=== PATIENT | female | born 1960 | race Two or more races ===

== ENCOUNTER 2020-03-27 17:24 | Emergency (ER) | payer MEDICAID, SELFPAY ==
--- NOTE | 2020-03-27 | ECG_ITS ---
Test Reason : SOB Blood Pressure : / mmHG Vent. Rate : 075 BPM Atrial Rate : 075 BPM P-R Int : 146 ms QRS Dur : 096 ms QT Int : 396 ms P-R-T Axes : 059 042 044 degrees QTc Int : 442 ms Normal sinus rhythm Normal ECG When compared with ECG of 04-JUN-2019 10:55, No significant change was found Referred By: Alice Marroquin Electronically Signed By:REBECCA JOSEPH DO
--- NOTE | 2020-03-27 | XR_ITS ---
EXAMINATION: XR CHEST CLINICAL INFORMATION: Shortness of breath TECHNIQUE: Frontal view of the chest was obtained. FINDINGS: No significant abnormality is noted involving the heart, lungs, mediastinum, bony thorax or soft tissues. IMPRESSION: Unremarkable examination.
[2020-03-27 17:02] VITALS: BP 145/64; PULSE 78; TEMP 36.6; BMI 25.6
--- NOTE | 2020-03-27 17:05 | ED_ITS ---
HPI - SOB/Dyspnea General Chief Complaint: Asthma <Alice Marroquin NP - Last Filed: 03/27/20 20:08> Stated Complaint: sob <Alice Marroquin NP - Last Filed: 03/27/20 20:08> Time Seen by Provider: 03/27/20 17:35 <Alice Marroquin NP - Last Filed: 03/27/20 20:08> Related Data Allergies/Adverse Reactions: Allergies Allergy/AdvReac Type Severity Reaction Status Date / Time No Known Allergies Allergy Unverified 03/13/20 19:32 [No Known Allergies*] <ANGELINA Peters Last Filed: 03/27/20 20:08> Review of Systems Review of Systems: Patient presents with 4 days of shortness of breath, shortness of breath on exertion, fatigue, and headache. She was seen at [facility] 1 week ago for swelling on her brain . She does have some chest tightness and nonproductive cough consistent with her history of COPD. She denies palpitations, fevers, chills, nausea, vomiting, abdominal pain, abdominal distention, dysuria, hematuria, and edema. She does walk with a cane And denies history of trauma and falls. <ANGELINA Peters Last Filed: 03/27/20 20:08> Constitutional: Constitutional: Denies chills, Denies excessive sweating, Reports fatigue, Denies fever(s), Denies frequent falls, Reports headache(s), Denies weight gain and Denies weight loss <ANGELINA Peters Last Filed: 03/27/20 20:08> Eyes: Eyes: Reports no additional eye complaints, Denies blurry vision and Denies loss of vision <Alice Marroquin NP - Last Filed: 03/27/20 20:08> ENT: Reports Normal hearing present, Denies change in voice, Denies dysphagia, Reports dizziness, Reports headache(s), Denies hoarseness, Denies neck pain, Denies disequilibrium and Denies sore throat <Alice Marroquin NP - Last Filed: 03/27/20 20:08> Cardiovascular: Cardiovascular: Denies acrocyanosis, Reports chest pain, Repo rts chest pain at rest, Reports chest pain with activity, Denies Epigastric Pain, Denies diaphoresis, Denies syncope, Denies rapid heart rate, Denies edema, Denies irregular heart rhythm, Denies claudication, Denies palpitations, Reports dyspnea, Reports dyspnea on exertion and Reports orthopnea <Alice Marroquin NP - Last Filed: 03/27/20 20:08> Respiratory: Respiratory: Denies change in phlegm color, Denies chest congestion, Reports cough, Denies hemoptysis, Reports excessive phlegm production, Denies pain on inspiration, Denies pain with cough, Reports dyspnea, Reports dyspnea on exertion, Denies stridor and Denies wheezing <Alice Marroquin MANAGER INTEGRITY - Last Filed: 03/27/20 20:08> Gastrointestinal: Gastrointestinal: Denies melena, Denies hematochezia, Denies change in stool character, Denies coffee ground emesis, Denies constipation, Den ies dysphagia, Denies fecal incontinence, Denies diarrhea, Denies loose stools, Denies nausea, Denies vomiting and Denies hematemesis <Alice Marroquin MANAGER INTEGRITY - Last Filed: 03/27/20 20:08> Genitourinary: Genitourinary: Denies difficulty voiding, Denies dysuria, Denies urinary incontinence, Denies urinary hesitancy and Denies urinary urgency <Alice Marroquin MANAGER INTEGRITY - Last Filed: 03/27/20 20:08> Musculoskeletal: Musculoskeletal: Denies abnormal gait and Denies neck pain <Alice Marroquin MANAGER INTEGRITY - Last Filed: 03/27/20 20:08> Neurologic: Reports Normal hearing present, Denies Neuro-related abnormal movements, Denies Abnormal speech present, Denies abnormal gait, Denies behavioral changes, Denies burning sensations, Denies confusion, Reports dizziness, Denies syncope, Denies frequent falls, Reports headache(s), Denies focal weakness, Denies loss of vision and Denies disequilibrium <Alice Marroquin MANAGER INTEGRITY - Last Filed: 03/27/20 20:08> Psychiatric: Psychiatric: Denies behavioral changes and Denies confusion <Alice Marroquin MANAGER INTEGRITY - Last Filed: 03/27/20 20:08> Endocrine: Endocrine: Denies excessive sweating, Reports fatigue, Denies polyuria and Denies palpitations <Alice Marroquin NP - Last Filed: 03/27/20 20:08> Hematologic/Lymphatic: Hematologic/Lymphatic: Denies easy bruising <Alice Marroquin NP - Last Filed: 03/27/20 20:08> Allergic/Immunologic: Allergic/Immunologic: Denies wheezing <Alice Marroquin NP - Last Filed: 03/27/20 20:08> [facility] Past Medical History Source: old records reviewed <Alice Marroquin NP - Last Filed: 03/27/20 20:08> Medical History: Medical History Anxiety COPD (chronic obstructive pulmonary disease) Depression Dyspnea Hypertension <Alice Marroquin NP - Last Filed: 03/27/20 20:08> Social History Social History: Social History Advance Directives: No Advance Directives Information Provided: No <Alice Marroquin NP - Last Filed: 03/27/20 20:08> Physical Exam Vital Signs and I&O and Narrative: Vital Signs and I&O: Vital Signs Temp 98.2 F 03/27/20 18:14 Pulse 74 03/27/20 18:14 Resp 16 03/27/20 18:14 BP 116/64 03/27/20 18:14 Pulse Ox 100 03/27/20 18:14 Intake & Output 03/27/20 03/27/20 03/28/20 06:59 18:59 06:59 Weight 63.503 kg Body Mass Index 25.6 <Alice Marroquin NP - Last Filed: 03/27/20 20:08> Vital Signs and I&O: Vital Signs Temp 98.2 F 03/27/20 18:14 Pulse 74 03/27/20 18:14 Resp 16 03/27/20 18:14 BP 116/64 03/27/20 18:14 Pulse Ox 100 03/27/20 18:14 Intake & Output 03/27/20 03/27/20 03/28/20 06:59 18:59 06:59 Weight 63.503 kg Body Mass Index 25.6 <Magdy Granado MD - Last Filed: 03/27/20 20:41> Const: General: cooperative, no acute distress, alert, awake and in distress mild (respiratory); No confusion or diaphoretic <Alice Marroquin NP - Last Filed: 03/27/20 20:08> Orientation/consciousness: oriented to person, oriented to place, oriented to time and No confusion <Alice Marroquin NP - Last Filed: 03/27/20 20:08> Limitations: ambulation with cane <Alice Marroquin NP - Last Filed: 03/27/20 20:08> HENMT: Head: Yes normal to inspection <Alice Marroquin NP - Last Filed: 03/27/20 20:08> Ears: hearing grossly normal bilaterally <Alice Marroquin NP - Last Filed: 03/27/20 20:08> General nose exam: Normal external nose present <Alice Marroquin NP - Last Filed: 03/27/20 20:08> Face and sinus: Yes normal facial exam <Alice Marroquin NP - Last Filed: 03/27/20 20:08> Mouth: Normal oral and palatal mucosa present <Alice Marroquin NP - Last Filed: 03/27/20 20:08> Eyes: General: appearance normal, both eyes and all related structures <Alice Marroquin NP - Last Filed: 03/27/20 20:08> Pupils: Equal, round and reactive pupils present <Alice Marroquin NP - Last Filed: 03/27/20 20:08> EOM: EOMs intact bilaterally <Alice Marroquin NP - Last Filed: 03/27/20 20:08> Neck: Neck: Yes normal visual inspection <Alice Marroquin NP - Last Filed: 03/27/20 20:08> Chest: Chest palpation & inspection: normal inspection of the chest, normal palpation of entire chest wall and no tenderness <Alice Marroquin NP - Last Filed: 03/27/20 20:08> Resp: Effort & Inspection: able to speak in complete sentences, audible wheezes, Actively coughing, labored and tachypneic <Alice Marroquin NP - Last Filed: 03/27/20 20:08> Auscultation: wheezes expiratory wheezes, inspiratory wheezes and throughout <Alice Marroquin NP - Last Filed: 03/27/20 20:08> Cardio: Jugular venous distension: no JVD <Alice Marroquin NP - Last Filed: 03/27/20 20:08> Rate: regular rate <Alice Marroquin NP - Last Filed: 03/27/20 20:08> Rhythm: regular rhythm <Alice Marroquin NP - Last Filed: 03/27/20 20:08> Peripheral pulses: brachial pulses present and dorsalis pedis present <Alice Marroquin NP - Last Filed: 03/27/20 20:08> GI: Inspection: Yes normal to inspection <Alice Marroquin MANAGER INTEGRITY - Last Filed: 03/27/20 20:08> Auscultation: normal bowel sounds <Alice Marroquin NP - Last Filed: 03/27/20 20:08> Neuro: General: oriented to person, oriented to place, oriented to time and No confusion <Alice Marroquin NP - Last Filed: 03/27/20 20:08> Cranial nerves: Yes Equal, round and reactive pupils present and Yes Normal hearing present <Alice Marroquin NP - Last Filed: 03/27/20 20:08> Speech: No Abnormal speech present <Alice Marroquin NP - Last Filed: 03/27/20 20:08> Extrem: General: Yes normal to inspection, Yes no pedal edema and Yes no calf tenderness <Alice Marroquin NP - Last Filed: 03/27/20 20:08> Right upper extremity: normal to inspection <Alice Marroquin NP - Last Filed : 03/27/20 20:08> Left upper extremity: normal to inspection <Alice Marroquin NP - Last Filed: 03/27/20 20:08> Right lower extremity: normal to inspection <Alice Marroquin NP - Last Filed: 03/27/20 20:08> Left lower extremity: normal to inspection <Alice Marroquin NP - Last Filed: 03/27/20 20:08> Psych: Appearance: grossly normal <Alice Marroquin NP - Last Filed: 03/27/20 20:08> Mental Status: mental status grossly normal <Alice Marroquin NP - Last Filed: 03/27/20 20:08> Speech and movement: Normal speech and movement present <Alice Marroquin NP - Last Filed: 03/27/20 20:08> Affect: normal affect <Alice Marroquin NP - Last Filed: 03/27/20 20:08> Attitude: cooperative <Alice Marroquin NP - Last Filed: 03/27/20 20:08> Thought process: Normal thought process present <Alice Marroquin NP - Last Filed: 03/27/20 20:08> Course Course Hospital Course: Medical records obtained from [facility], she was seen on 02/27/2020 for shortness of breath and headache. CT scan of the head was negative for acute findings, was diagnosed with acute COPD exacerbation, COVID- 19 test was negative at that time, was given a low-dose prednisone taper for COPD and headache, was not given any antibiotics at the time because she was afebrile. It was known that she stopped her atenolol and benazepril, she does have a history of a CVA and Her Plavix was discontinued for an unknown reason. She was seen in January and had a diagnosis of pericarditis. <Alice Marroquin NP - Last Filed: 03/27/20 20:08> Reevaluation(s) Reevaluation #1: I evaluated this patient with increased work of breathing and COPD exacerbation. lungs distant slight wheeze, will start steroids and dc home <Magdy Granado MD - Last Filed: 03/27/20 20:41> Time: 19:48 <Alice Marroquin NP - Last Filed: 03/27/20 20:08> 19:54 <Magdy Granado MD - Last Filed: 03/27/20 20:41> Reevaluation #2: RR 28. O2 sats 96 % on room air, Dr. Granado at bedside for evaluation. Plan is for Solu-Medrol 60 mg and a prednisone burst 60 mg for the next 5 days. <Alice Marroquin NP - Last Filed: 03/27/20 20:08> MDM - SOB/Dyspnea Differential Diagnosis Differential diagnosis: Likely acute exacerbation of chronic obstructive airways disease, shawn estive heart failure, pneumonia and anemia <ANGELINA Peters Last Filed: 03/27/20 20:08> Lab Data Result diagrams: : 03/27/20 18:11 03/27/20 18:11 <Alice Marroquin MANAGER INTEGRITY - Last Filed: 03/27/20 20:08> Labs: Lab Results 03/27/20 03/27/20 03/27/20 Range/Units 18:10 18:11 18:11 WBC 5.0 (4.8-10.8) X10*3/uL RBC 4.58 (4.20-5.50) X10*6/uL Hgb 12.9 (12.0-16.0) g/dl Hct 38.2 (37-47) % MCV 83.4 (80-98) fL MCH 28.2 (27.0-33.0) pg MCHC 33.8 (31.0-35.0) g/dl RDW 13.2 (11.0-16.0) % Plt Count 132 L (160-400) X10*3/uL Immature Gran % (Auto) 0.2 (0.0-0.4) % Neut % (Auto) 76.8 H (45-73) % Lymph % (Auto) 13.8 L (20-40) % [place] % (Auto) 7.4 (2-11) % Eos % (Auto) 1.2 (0-4) % Baso % (Auto) 0.6 (0-2) % Neut # (Auto) 3.8 (2.0-8.3) X10*3/uL Lymph # (Auto) 0.7 L (1.2-4.9) X10*3/uL [place] # (Auto) 0.4 (0.1-1.2) X10*3/uL Eos # (Auto) 0.1 (0.0-0.4) X10*3/uL Baso # (Auto) 0.0 (0.0-0.2) X10*3/uL Abs Immat Gran (auto) 0.01 (0.00-0.03) X10*3/uL Absolute Nucleated RBC 0.000 (0.0-0.012) X10*3/uL Nucleated RBC % (auto) 0.0 (0.0-0.2) /100WBC Smear Tech's Comments VERIFIED Sodium 140 (135-145) mmol/L Potassium 3.8 (3.3-5.1) mmol/l Chloride 105 (96-108) mmol/L Carbon Dioxide 25 (22-29) mmol/L Anion Gap 14 (12-20) BUN 11 (9-16) mg/dL Creatinine 0.92 (0.5-1.4) mg/dL Estim Creat Clear Calc 56.2 Estimated GFR > 60 Random Glucose 95 (60-115) mg/dL Lactic Acid 1.0 (0.5-2.0) mmol/L Calcium 9.5 (8.4-10.2) mg/dL Troponin I High Sens (<3.5-17.0) ng/L B-Natriuretic Peptide (<100) pg/mL 03/27/20 Range/Units 18:11 WBC (4.8-10.8) X10*3/uL RBC (4.20-5.50) X10*6/uL Hgb (12.0-16.0) g/dl Hct (37-47) % MCV (80-98) fL MCH (27.0-33.0) pg MCHC (31.0-35.0) g/dl RDW (11.0-16.0) % Plt Count (160-400) X10*3/uL Immature Gran % (Auto) (0.0-0.4) % Neut % (Auto) (45-73) % Lymph % (Auto) (20-40) % [place] % (Auto) (2-11) % Eos % (Auto) (0-4) % Baso % (Auto) (0-2) % Neut # (Auto) (2.0-8.3) X10*3/uL Lymph # (Auto) (1.2-4.9) X10*3/uL [place] # (Auto) (0.1-1.2) X10*3/uL Eos # (Auto) (0.0-0.4) X10*3/uL Baso # (Auto) (0.0-0.2) X10*3/uL Abs Immat Gran (auto) (0.00-0.03) X10*3/uL Absolute Nucleated RBC (0.0-0.012) X10*3/uL Nucleated RBC % (auto) (0.0-0.2) /100WBC Smear Tech's Comments Sodium (135-145) mmol/L Potassium (3.3-5.1) mmol/l Chloride (96-108) mmol/L Carbon Dioxide (22-29) mmol/L Anion Gap (12-20) BUN (9-16) mg/dL Creatinine (0.5-1.4) mg/dL Estim Creat Clear Calc Estimated GFR Random Glucose (60-115) mg/dL Lactic Acid (0.5-2.0) mmol/L Calcium (8.4-10.2) mg/dL Troponin I High Sens < 3.5 (<3.5-17.0) ng/L B-Natriuretic Peptide 11 (<100) pg/mL <Alice Marroquin NP - Last Filed: 03/27/20 20:08> Lab Results 03/27/20 03/27/20 03/27/20 Range/Units 18:10 18:11 18:11 WBC 5.0 (4.8-10.8) X10*3/uL RBC 4.58 (4.20-5.50) X10*6/uL Hgb 12.9 (12.0-16.0) g/dl Hct 38.2 (37-47) % MCV 83.4 (80-98) fL MCH 28.2 (27.0-33.0) pg MCHC 33.8 (31.0-35.0) g/dl RDW 13.2 (11.0-16.0) % Plt Count 132 L (160-400) X10*3/uL Immature Gran % (Auto) 0.2 (0.0-0.4) % Neut % (Auto) 76.8 H (45-73) % Lymph % (Auto) 13.8 L (20-40) % [place] % (Auto) 7.4 (2-11) % Eos % (Auto) 1.2 (0-4) % Baso % (Auto) 0.6 (0-2) % Neut # (Auto) 3.8 (2.0-8.3) X10*3/uL Lymph # (Auto) 0.7 L (1.2-4.9) X10*3/uL [place] # (Auto) 0.4 (0.1-1.2) X10*3/uL Eos # (Auto) 0.1 (0.0-0.4) X10*3/uL Baso # (Auto) 0.0 (0.0-0.2) X10*3/uL Abs Immat Gran (auto) 0.01 (0.00-0.03) X10*3/uL Absolute Nucleated RBC 0.000 (0.0-0.012) X10*3/uL Nucleated RBC % (auto) 0.0 (0.0-0.2) /100WBC Smear Tech's Comments VERIFIED Sodium 140 (135-145) mmol/L Potassium 3.8 (3.3-5.1) mmol/l Chloride 105 (96-108) mmol/L Carbon Dioxide 25 (22-29) mmol/L Anion Gap 14 (12-20) BUN 11 (9-16) mg/dL Creatinine 0.92 (0.5-1.4) mg/dL Estim Creat Clear Calc 56.2 Estimated GFR > 60 Random Glucose 95 (60-115) mg/dL Lactic Acid 1.0 (0.5-2.0) mmol/L Calcium 9.5 (8.4-10.2) mg/dL Troponin I High Sens (<3.5-17.0) ng/L B-Natriuretic Peptide (<100) pg/mL 03/27/20 Range/Units 18:11 WBC (4.8-10.8) X10*3/uL RBC (4.20-5.50) X10*6/uL Hgb (12.0-16.0) g/dl Hct (37-47) % MCV (80-98) fL MCH (27.0-33.0) pg MCHC (31.0-35.0) g/dl RDW (11.0-16.0) % Plt Count (160-400) X10*3/uL Immature Gran % (Auto) (0.0-0.4) % Neut % (Auto) (45-73) % Lymph % (Auto) (20-40) % [place] % (Auto) (2-11) % Eos % (Auto) (0-4) % Baso % (Auto) (0-2) % Neut # (Auto) (2.0-8.3) X10*3/uL Lymph # (Auto) (1.2-4.9) X10*3/uL [place] # (Auto) (0.1-1.2) X10*3/uL Eos # (Auto) (0.0-0.4) X10*3/uL Baso # (Auto) (0.0-0.2) X10*3/uL Abs Immat Gran (auto) (0.00-0.03) X10*3/uL Absolute Nucleated RBC (0.0-0.012) X10*3/uL Nucleated RBC % (auto) (0.0-0.2) /100WBC Smear Tech's Comments Sodium (135-145) mmol/L Potassium (3.3-5.1) mmol/l Chloride (96-108) mmol/L Carbon Dioxide (22-29) mmol/L Anion Gap (12-20) BUN (9-16) mg/dL Creatinine (0.5-1.4) mg/dL Estim Creat Clear Calc Estimated GFR Random Glucose (60-115) mg/dL Lactic Acid (0.5-2.0) mmol/L Calcium (8.4-10.2) mg/dL Troponin I High Sens < 3.5 (<3.5-17.0) ng/L B-Natriuretic Peptide 11 (<100) pg/mL <Magdy Granado MD - Last Filed: 03/27/20 20:41> ECG Data Attestation: I personally reviewed and interpreted this ECG as follows: <Alice Marroquin NP - Last Filed: 03/27/20 20:08> ECG interpretation date: 03/27/20 <Alice Marroquin NP - Last Filed: 03/27/20 20:08> ECG interpretation time: 17:57 <Alice Marroquin NP - Last Filed: 03/27/20 20:08> Interpretation: normal sinus rhythm, ventricular rate 75 beats per minute, no indication of ST wave changes indicating ischemia, elevation or depression. No significant changes when compared to ECG on June 04, 2019 <Alice Marroquin NP - Last Filed: 03/27/20 20:08> Scores Heart Score History: -1- moderately suspicious <Alice Marroquin NP - Last Filed: 03/27/20 20:08> ECG: -0- normal <Alice Marroquin NP - Last Filed: 03/27/20 20:08> Age: -1- >45 - <65 <Alice Marroquin NP - Last Filed: 03/27/20 20:08> Risk factory: -1- 1 or 2 risk factors <Alice Marroquin NP - Last Filed: 03/27/20 20:08> Troponin: -0- < or = normal limit <Alice Marroquin NP - Last Filed: 03/27/20 20:08> Score: 3 <Alice Marroquin NP - Last Filed: 03/27/20 20:08> Risk: 1.7% <Alice Marroquin NP - Last Filed: 03/27/20 20:08> Discharge Plan Discharge Patient Disposition: Home, Self-Care <Alice Marroquin NP - Last Filed: 03/27/20 20:08>
[2020-03-27 18:14] VITALS: BP 116/64; PULSE 74; RESP 16; TEMP 36.8; O2SAT 100
[2020-03-27] MEDS: Albuterol Sulfate (0.083%) 2.5 MG/3 ML VIAL.NEB INHALE (18:25)
[2020-03-27 18:28] LABS: Basophils Percent Auto 0.6 % (0-2); Hemoglobin 12.9 g/dl (12.0-16.0); Imm Gran Abs Auto 0.01 X10*3/uL (0.00-0.03); Imm Gran Pct Auto 0.2 % (0.0-0.4); MANUAL DIFF FLAG SCAN; Mean Corpuscular Hemoglobin 28.2 pg (27.0-33.0); SCAN SMEAR FLAG 1
[2020-03-27 18:30] LABS: Eosinophils Absolute Auto 0.1 X10*3/uL (0.0-0.4); Eosinophils Percent Auto 1.2 % (0-4); Hematocrit 38.2 % (37-47); Lymphocytes Absolute Auto 0.7 X10*3/uL (1.2-4.9); Lymphocytes Percent Auto 13.8 % (20-40); Mean Corpuscular HGB Conc 33.8 g/dl (31.0-35.0); Mean Corpuscular Volume 83.4 fL (80-98); Monocytes Absolute Auto 0.4 X10*3/uL (0.1-1.2); Monocytes Percent Auto 7.4 % (2-11); Neutrophils Absolute Auto 3.8 X10*3/uL (2.0-8.3); Neutrophils Percent Auto 76.8 % (45-73); Platelet Count 132 X10*3/uL (160-400); Red Blood Count 4.58 X10*6/uL (4.20-5.50); Red Cell Distribution Width 13.2 % (11.0-16.0)
[2020-03-27 18:41] LABS: PLT ABN DIST 1
[2020-03-27 18:45] LABS: Anion Gap 14 (12-20); Blood Urea Nitrogen 11 mg/dL (9-16); Calcium 9.5 mg/dL (8.4-10.2); Carbon Dioxide 25 mmol/L (22-29); Chloride 105 mmol/L (96-108); Creatinine Clr Calc Pharmacy 56.2; Estimated Glomerular Filt Rate > 60; Glucose Random 95 mg/dL (60-115); Potassium 3.8 mmol/l (3.3-5.1); Sodium 140 mmol/L (135-145)
[2020-03-27 18:47] LABS: SLIDE REVIEW VERIFIED
[2020-03-27 19:02] LABS: B Type Natriuretic Peptide 11 pg/mL (<100); Troponin-I High Sensitivity < 3.5 ng/L (<3.5-17.0)
--- NOTE | 2020-03-27 19:27 | PC.NURSE ---
Assumed care of pt. pt resting quietly in room in NAD. Pt alert and denies any complaints at this time. respirations easy, n/l. skin w//d. Pt awaiting further orders.
--- NOTE | 2020-03-27 20:49 | ED_ITS ---
HPI - Asthma General Chief Complaint: Asthma <Alice Marroquin NP - Last Filed: 03/27/20 21:09> Stated Complaint: sob <Alice Marroquin NP - Last Filed: 03/27/20 21:09> Time Seen by Provider: 03/27/20 17:35 <Alice Marroquin NP - Last Filed: 03/27/20 21:09> Related Data Home Medications: Previous Rx's Medication Instructions Recorded prednisone 60 mg PO DAILY 5 Days #15 tab 03/27/20 <Alice Marroquin NP - Last Filed: 03/27/20 21:09> Allergies/Adverse Reactions: Allergies Allergy/AdvReac Type Severity Reaction Status Date / Time No Known Allergies Allergy Unverified 03/13/20 19:32 [No Known Allergies*] <Alice Marroquin NP - Last Filed: 03/27/20 21:09> Review of Systems Constitutional: Constitutional: Denies frequent falls and Reports headache(s) <Alice Marroquin NP - Last Filed: 03/27/20 21:09> Eyes: Eyes: Denies loss of vision <Alice Marroquin NP - Last Filed: 03/27/20 21:09> ENT: Reports Normal hearing present, Reports dizziness, Reports headache(s) and Denies disequilibrium <Alice Marroquin NP - Last Filed: 03/27/20 21:09> Cardiovascular: Cardiovascular: Denies syncope <Alice Marroquin NP - Last Filed: 03/27/20 21:09> Musculoskeletal: Musculoskeletal: Denies abnormal gait <Alice Marroquin NP - Last Filed: 03/27/20 21:09> Neurologic: Reports Normal hearing present, Denies Neuro-related abnormal movements, Denies Abnormal speech present, Denies abnormal gait, Denies behavioral changes, Denies burning sensations, Denies confusion, Reports dizziness, Denies syncope, Denies frequent falls, Reports headache(s), Denies focal weakness, Denies loss of vision and Denies disequilibrium <Alice Marroquin NP - Last Filed: 03/27/20 21:09> Psychiatric: Psychiatric: Denies behavioral changes and Denies confusion <Alice Marroquin NP - Last Filed: 03/27/20 21:09> PMFSH Past Medical History Medical History: Medical History Anxiety COPD (chronic obstructive pulmonary disease) Depression Dyspnea Hypertension <Alice Marroquin NP - Last Filed: 03/27/20 21:09> Social History Social History: Social History Advance Directives: No Advance Directives Information Provided: No <Alice Marroquin NP - Last Filed: 03/27/20 21:09> Physical Exam Vital Signs and I&O and Narrative: Vital Signs and I&O: Vital Signs Temp 98.2 F 03/27/20 18:14 Pulse 79 03/27/20 23:12 Resp 24 H 03/27/20 23:12 BP 134/76 03/27/20 23:12 Pulse Ox 98 03/27/20 23:12 Intake & Output 03/27/20 03/28/20 03/28/20 18:59 06:59 18:59 Weight 63.503 kg Body Mass Index 25.6 <Alice Marroquin NP - Last Filed: 03/27/20 21:09> Vital Signs and I&O: Vital Signs Temp 98.2 F 03/27/20 18:14 Pulse 79 03/27/20 23:12 Resp 24 H 03/27/20 23:12 BP 134/76 03/27/20 23:12 Pulse Ox 98 03/27/20 23:12 Intake & Output 03/27/20 03/28/20 03/28/20 18:59 06:59 18:59 Weight 63.503 kg Body Mass Index 25.6 <Magdy Granado MD - Last Filed: 03/28/20 08:38> Const: General: No confusion <Alice Marroquin NP - Last Filed: 03/27/20 21:09> Orientation/consciousness: No confusion <Alice Marroquin NP - Last Filed: 03/27/20 21:09> Limitations: ambulation with cane <Alice Marroquin NP - Last Filed: 03/27/20 21:09> HENMT: Head: Yes normal to inspection <Alice Marroquin NP - Last Filed: 03/27/20 21:09> Ears: hearing grossly normal bilaterally <Alice Marroquin NP - Last Filed: 03/27/20 21:09> General nose exam: Normal external nose present <Alice Marroquin CONDUIT INSTALLER - Last Filed: 03/27/20 21:09> Face and sinus: Yes normal facial exam <Alice Marroquin NP - Last Filed: 03/27/20 21:09> Mouth: Normal oral and palatal mucosa present <Alice Marroquin CONDUIT INSTALLER - Last Filed: 03/27/20 21:09> Eyes: General: appearance normal, both eyes and all related structures <Alice Marroquin CONDUIT INSTALLER - Last Filed: 03/27/20 21:09> Pupils: Equal, round and reactive pupils present <Alice Marroquin CONDUIT INSTALLER - Last Filed: 03/27/20 21:09> EOM: EOMs intact bilaterally <Alice Marroquin CONDUIT INSTALLER - Last Filed: 03/27/20 21:09> Neck: Neck: Yes normal visual inspection <Alice Marroquin NP - Last Filed: 03/27/20 21:09> Chest: Chest palpation & inspection: normal inspection of the chest, normal palpation of entire chest wall and no tenderness <Alice Marroquin CONDUIT INSTALLER - Last Filed: 03/27/20 21:09> Resp: Effort & Inspection: able to speak in complete sentences, audible wheezes, Actively coughing, labored and tachypneic <Alice Marroquin CONDUIT INSTALLER - Last Filed: 03/27/20 21:09> Auscultation: wheezes expiratory wheezes, inspiratory wheezes and throughout <Alice Marroquin CONDUIT INSTALLER - Last Filed: 03/27/20 21:09> Cardio: Jugular venous distension: no JVD <Alice Marroquin CONDUIT INSTALLER - Last Filed: 03/27/20 21:09> Rate: regular rate <Alice Marroquin NP - Last Filed: 03/27/20 21:09> Rhythm: regular rhythm <Alice Marroquin NP - Last Filed: 03/27/20 21:09> Peripheral pulses: brachial pulses present and dorsalis pedis present <Alice Marroquin NP - Last Filed: 03/27/20 21:09> GI: Inspection: Yes normal to inspection <Alice Marroquin CONDUIT INSTALLER - Last Filed: 03/27/20 21:09> Auscultation: normal bowel sounds <Alice Marroquin CONDUIT INSTALLER - Last Filed: 03/27/20 21:09> Neuro: General: No confusion <Alice Marroquin CONDUIT INSTALLER - Last Filed: 03/27/20 21:09> Cranial nerves: Yes Equal, round and reactive pupils present and Yes Normal hearing present <Alice Marroquin CONDUIT INSTALLER - Last Filed: 03/27/20 21:09> Speech: No Abnormal speech present <Alice Marroquin CONDUIT INSTALLER - Last Filed: 03/27/20 21:09> Extrem: General: Yes normal to inspection, Yes no pedal edema and Yes no calf tenderness <Alice Marroquin CONDUIT INSTALLER - Last Filed: 03/27/20 21:09> Right upper extremity: normal to inspection <Alice Mraroquin CONDUIT INSTALLER - Last Filed: 03/27/20 21:09> Left upper extremity: normal to inspection <Alice Marroquin CONDUIT INSTALLER - Last Filed: 03/27/20 21:09> Right lower extremity: normal to inspection <Alice Marroquin CONDUIT INSTALLER - Last File d: 03/27/20 21:09> Left lower extremity: normal to inspection <Alice Marroquin CONDUIT INSTALLER - Last Filed: 03/27/20 21:09> Psych: Appearance: grossly normal <Alice Marroquin NP - Last Filed: 03/27/20 21:09> Mental Status: mental status grossly normal <Alice Marroquin CONDUIT INSTALLER - Last Filed: 03/27/20 21:09> Speech and movement: Normal speech and movement present <Alice Marroquin CONDUIT INSTALLER - Last Filed: 03/27/20 21:09> Affect: normal affect <Alice Marroquin CONDUIT INSTALLER - Last Filed: 03/27/20 21:09> Attitude: cooperative <Alice Marroquin NP - Last Filed: 03/27/20 21:09> Thought process: Normal thought process present <Alice Marroquin NP - Last Filed: 03/27/20 21:09> Course Course Hospital Course: Medical records obtained from [facility], she was seen on 02/27/2020 for shortness of breath and headache. CT scan of the head was negative for acute findings, was diagnosed with acute COPD exacerbation, COVID- 19 test was negative at that time, was given a low-dose prednisone taper for COPD and headache, was not given any antibiotics at the time because she was afebrile. It was known that she stopped her atenolol and benazepril, she does have a history of a CVA and Her Plavix was discontinued for an unknown reason. She was seen in January and had a diagnosis of pericarditis. <Alice Marroquin NP - Last Filed: 03/27/20 21:09> Reevaluation(s) Reevaluation #1: I agree with the history and plan. My physical exam was elderly female, alert and oriented, normal head, PERRRL, pharynx normal, no JVD, Lungs distant but slight wheeze with good air movement, RRR no murmurs, abdomen nontender, no edema, neuro nonfocal, patient ate her functional baseline. My plan is to restart steroid bolus and dc home <Magdy Granado MD - Last Filed: 03/28/20 08:38> Time: 08:38 <Magdy Granado MD - Last Filed: 03/28/20 08:38> Time: 20:56 <Alice Marroquin NP - Last Filed: 03/27/20 21:09> Reevaluation #3: patient doing much better, respiration rate 18-20. Will discharge home at this time. Patient verbalized understanding of and agrees to plan of care discharge home. <Alice Marroquin NP - Last Filed: 03/27/20 21:09> MDM - Asthma Differential Diagnosis Differential diagnosis: Likely Acute exacerbation, Acute asthmatic bronchitis, Pneumonia, COPD exacerbation and Pneumothorax <lAice Marroquin NP - Last Filed: 03/27/20 21:09> Lab Data Result diagrams: : 03/27/20 18:11 03/27/20 18:11 <Alice Marroquin NP - Last Filed: 03/27/20 21:09> Labs: Lab Results 03/27/20 03/27/20 03/27/20 Range/Units 18:10 18:11 18:11 WBC 5.0 (4.8-10.8) X10*3/uL RBC 4.58 (4.20-5.50) X10*6/uL Hgb 12.9 (12.0-16.0) g/dl Hct 38.2 (37-47) % MCV 83.4 (80-98) fL MCH 28.2 (27.0-33.0) pg MCHC 33.8 (31.0-35.0) g/dl RDW 13.2 (11.0-16.0) % Plt Count 132 L (160-400) X10*3/uL Immature Gran % (Auto) 0.2 (0.0-0.4) % Neut % (Auto) 76.8 H (45-73) % Lymph % (Auto) 13.8 L (20-40) % [place] % (Auto) 7.4 (2-11) % Eos % (Auto) 1.2 (0-4) % Baso % (Auto) 0.6 (0-2) % Neut # (Auto) 3.8 (2.0-8.3) X10*3/uL Lymph # (Auto) 0.7 L (1.2-4.9) X10*3/uL [place] # (Auto) 0.4 (0.1-1.2) X10*3/uL Eos # (Auto) 0.1 (0.0-0.4) X10*3/uL Baso # (Auto) 0.0 (0.0-0.2) X10*3/uL Abs Immat Gran (auto) 0.01 (0.00-0.03) X10*3/uL Absolute Nucleated RBC 0.000 (0.0-0.012) X10*3/uL Nucleated RBC % (auto) 0.0 (0.0-0.2) /100WBC Smear Tech's Comments VERIFIED Sodium 140 (135-145) mmol/L Potassium 3.8 (3.3-5.1) mmol/l Chloride 105 (96-108) mmol/L Carbon Dioxide 25 (22-29) mmol/L Anion Gap 14 (12-20) BUN 11 (9-16) mg/dL Creatinine 0.92 (0.5-1.4) mg/dL Estim Creat Clear Calc 56.2 Estimated GFR > 60 Random Glucose 95 (60-115) mg/dL Lactic Acid 1.0 (0.5-2.0) mmol/L Calcium 9.5 (8.4-10.2) mg/dL Troponin I High Sens (<3.5-17.0) ng/L B-Natriuretic Peptide (<100) pg/mL 03/27/20 Range/Units 18:11 WBC (4.8-10.8) X10*3/uL RBC (4.20-5.50) X10*6/uL Hgb (12.0-16.0) g/dl Hct (37-47) % MCV (80-98) fL MCH (27.0-33.0) pg MCHC (31.0-35.0) g/dl RDW (11.0-16.0) % Plt Count (160-400) X10*3/uL Immature Gran % (Auto) (0.0-0.4) % Neut % (Auto) (45-73) % Lymph % (Auto) (20-40) % [place] % (Auto) (2-11) % Eos % (Auto) (0-4) % Baso % (Auto) (0-2) % Neut # (Auto) (2.0-8.3) X10*3/uL Lymph # (Auto) (1.2-4.9) X10*3/uL [place] # (Auto) (0.1-1.2) X10*3/uL Eos # (Auto) (0.0-0.4) X10*3/uL Baso # (Auto) (0.0-0.2) X10*3/uL Abs Immat Gran (auto) (0.00-0.03) X10*3/uL Absolute Nucleated RBC (0.0-0.012) X10*3/uL Nucleated RBC % (auto) (0.0-0.2) /100WBC Smear Tech's Comments Sodium (135-145) mmol/L Potassium (3.3-5.1) mmol/l Chloride (96-108) mmol/L Carbon Dioxide (22-29) mmol/L Anion Gap (12-20) BUN (9-16) mg/dL Creatinine (0.5-1.4) mg/dL Estim Creat Clear Calc Estimated GFR Random Glucose (60-115) mg/dL Lactic Acid (0.5-2.0) mmol/L Calcium (8.4-10.2) mg/dL Troponin I High Sens < 3.5 (<3.5-17.0) ng/L B-Natriuretic Peptide 11 (<100) pg/mL <Alice Marroquin NP - Last Filed: 03/27/20 21:09> Lab Results 03/27/20 03/27/20 03/27/20 Range/Units 18:10 18:11 18:11 WBC 5.0 (4.8-10.8) X10*3/uL RBC 4.58 (4.20-5.50) X10*6/uL Hgb 12.9 (12.0-16.0) g/dl Hct 38.2 (37-47) % MCV 83.4 (80-98) fL MCH 28.2 (27.0-33.0) pg MCHC 33.8 (31.0-35.0) g/dl RDW 13.2 (11.0-16.0) % Plt Count 132 L (160-400) X10*3/uL Immature Gran % (Auto) 0.2 (0.0-0.4) % Neut % (Auto) 76.8 H (45-73) % Lymph % (Auto) 13.8 L (20-40) % [place] % (Auto) 7.4 (2-11) % Eos % (Auto) 1.2 (0-4) % Baso % (Auto) 0.6 (0-2) % Neut # (Auto) 3.8 (2.0-8.3) X10*3/uL Lymph # (Auto) 0.7 L (1.2-4.9) X10*3/uL [place] # (Auto) 0.4 (0.1-1.2) X10*3/uL Eos # (Auto) 0.1 (0.0-0.4) X10*3/uL Baso # (Auto) 0.0 (0.0-0.2) X10*3/uL Abs Immat Gran (auto) 0.01 (0.00-0.03) X10*3/uL Absolute Nucleated RBC 0.000 (0.0-0.012) X10*3/uL Nucleated RBC % (auto) 0.0 (0.0-0.2) /100WBC Smear Tech's Comments VERIFIED Sodium 140 (135-145) mmol/L Potassium 3.8 (3.3-5.1) mmol/l Chloride 105 (96-108) mmol/L Carbon Dioxide 25 (22-29) mmol/L Anion Gap 14 (12-20) BUN 11 (9-16) mg/dL Creatinine 0.92 (0.5-1.4) mg/dL Estim Creat Clear Calc 56.2 Estimated GFR > 60 Random Glucose 95 (60-115) mg/dL Lactic Acid 1.0 (0.5-2.0) mmol/L Calcium 9.5 (8.4-10.2) mg/dL Troponin I High Sens (<3.5-17.0) ng/L B-Natriuretic Peptide (<100) pg/mL 03/27/20 Range/Units 18:11 WBC (4.8-10.8) X10*3/uL RBC (4.20-5.50) X10*6/uL Hgb (12.0-16.0) g/dl Hct (37-47) % MCV (80-98) fL MCH (27.0-33.0) pg MCHC (31.0-35.0) g/dl RDW (11.0-16.0) % Plt Count (160-400) X10*3/uL Immature Gran % (Auto) (0.0-0.4) % Neut % (Auto) (45-73) % Lymph % (Auto) (20-40) % [place] % (Auto) (2-11) % Eos % (Auto) (0-4) % Baso % (Auto) (0-2) % Neut # (Auto) (2.0-8.3) X10*3/uL Lymph # (Auto) (1.2-4.9) X10*3/uL [place] # (Auto) (0.1-1.2) X10*3/uL Eos # (Auto) (0.0-0.4) X10*3/uL Baso # (Auto) (0.0-0.2) X10*3/uL Abs Immat Gran (auto) (0.00-0.03) X10*3/uL Absolute Nucleated RBC (0.0-0.012) X10*3/uL Nucleated RBC % (auto) (0.0-0.2) /100WBC Smear Tech's Comments Sodium (135-145) mmol/L Potassium (3.3-5.1) mmol/l Chloride (96-108) mmol/L Carbon Dioxide (22-29) mmol/L Anion Gap (12-20) BUN (9-16) mg/dL Creatinine (0.5-1.4) mg/dL Estim Creat Clear Calc Estimated GFR Random Glucose (60-115) mg/dL Lactic Acid (0.5-2.0) mmol/L Calcium (8.4-10.2) mg/dL Troponin I High Sens < 3.5 (<3.5-17.0) ng/L B-Natriuretic Peptide 11 (<100) pg/mL <Magdy Granado MD - Last Filed: 03/28/20 08:38> Discharge Plan Discharge Clinical Impression: COPD exacerbation <Alice Marroquin NP - Last Filed: 03/27/20 21:09> Patient Disposition: Home, Self-Care <Alice Marroquin NP - Last Filed: 03/27/20 21:09> Instructions: Emphysema (ED), COPD (Chronic Obstructive Pulmonary Disease) (ED) <Alice Marroquin NP - Last Filed: 03/27/20 21:09> Additional Instructions: Por favor, shan un seguimiento con neumolog?a seg?n sea necesario. Lo remitimos al Dr. Tilley. Seguimiento con el proveedor de atenci?n primaria seg?n sea necesario. Regrese al servicio de urgencias para cualquier s?ntoma nuevo, preocupante y que empeore. Please follow-up with pulmonology as needed. We referred you to Dr. Strickland. Follow-up with primary care provider as needed. Return to emergency department for any new, concerning, worsening symptoms. <Alice Marroquin NP - Last Filed: 03/27/20 21:09> Prescriptions: New prednisone 20 mg tablet 60 mg PO DAILY 5 Days Qty: 15 RF: 0 <Alice Marroquin NP - Last Filed: 03/27/20 21:09> Referrals: Jose Martin Strickland MD [Physician] - 2 days ( please follow-up with pulmonology as needed.) <Alice Marroquin NP - Last Filed: 03/27/20 21:09> Discharge Date/Time: 03/27/20 22:30 <Alice Marroquin NP - Last Filed: 03/27/20 21:09> Print Language: Pakistani <Alice Marroquin NP - Last Filed: 03/27/20 21:09>
[2020-03-27] MEDS: methylPREDNISolone Sod Succ/PF 125 MG/2 ML VIAL 60 MG IVPUSH (23:08)
[2020-03-27 23:12] VITALS: BP 134/76; PULSE 79; RESP 24; O2SAT 98
== END 2020-03-27 22:30 | disposition home or self-care (01) ==
PROVIDERS: Nurse Practitioner Family; Emergency Provider Emergency Medicine; PCP Internal Medicine
DX: J44.1 Chronic obstructive pulmonary disease with (acute) exacerbation (principal); I10 Essential (primary) hypertension
CPT/HCPCS: 36415; 71045; 80048; 83605; 83880; 84484; 85025; 87040; 93005; 93010; 96374; 99283; 99284; J2930

== ENCOUNTER 2020-05-14 09:45 | Outpatient (REF) | payer MEDICAID, SELFPAY ==
--- NOTE | 2020-05-14 | PFT_ITS ---
Forced vital capacity and FEV1 are normal. DSI95-10 is slightly reduced. MVV normal. Post bronchodilator therapy, there is significant improvement in FEV1 and [id number] to normal level. Total lung capacity and residual volume normal. Diffusion capacity normal. CONCLUSION: Mild obstructive airway disorder. Complete reversibility after bronchodilator therapy is indicative of bronchial asthma. MD LUIS MANUEL Dave/MILDREDL / [phone]
== END 2020-05-14 09:46 | disposition home or self-care (01) ==
LOC: HO.RESP 09:45
PROVIDERS: PCP Internal Medicine; Visit Provider Internal Medicine
DX: J45.40 Moderate persistent asthma, uncomplicated (principal); R07.1 Chest pain on breathing
CPT/HCPCS: 94060; 94727; 94729

== ENCOUNTER → 2020-07-31 09:49 | Outpatient (BNVA) | payer MEDICAID, SELFPAY | PROVIDERS: PCP Internal Medicine; Visit Provider Physician Assistant ==

== ENCOUNTER 2020-09-02 09:52 | Outpatient (REF) | payer MEDICAID, SELFPAY ==
[2020-09-02 10:41] LABS: MANUAL DIFF FLAG NO
[2020-09-02 10:51] LABS: Basophils Percent Auto 0.8 % (0-2); Eosinophils Absolute Auto 0.2 X10*3/uL (0.0-0.4); Eosinophils Percent Auto 4.6 % (0-4); Hematocrit 37.7 % (37-47); Hemoglobin 12.4 g/dl (12.0-16.0); Imm Gran Abs Auto 0.02 X10*3/uL (0.00-0.03); Imm Gran Pct Auto 0.4 % (0.0-0.4); Lymphocytes Percent Auto 18.4 % (20-40); Mean Corpuscular HGB Conc 32.9 g/dl (31.0-35.0); Mean Corpuscular Hemoglobin 28.1 pg (27.0-33.0); Mean Corpuscular Volume 85.3 fL (80-98); Monocytes Absolute Auto 0.5 X10*3/uL (0.1-1.2); Monocytes Percent Auto 9.1 % (2-11); Neutrophils Absolute Auto 3.5 X10*3/uL (2.0-8.3); Neutrophils Percent Auto 66.7 % (45-73); Platelet Count 155 X10*3/uL (160-400); Red Blood Count 4.42 X10*6/uL (4.20-5.50); Red Cell Distribution Width 14.4 % (11.0-16.0); White Blood Count 5.2 X10*3/uL (4.8-10.8)
[2020-09-02 11:09] LABS: Alanine Aminotransferase 7 U/L (0-31); Albumin Level 4.2 g/dL (3.5-5.0); Alkaline Phosphatase 73 U/L (39-117); Anion Gap 11 (12-20); Aspartate Amino Transferase 13 U/L (5-31); Bilirubin Total 0.3 mg/dL (0.0-1.0); Blood Urea Nitrogen 12 mg/dL (9-16); Calcium 9.1 mg/dL (8.4-10.2); Carbon Dioxide 29 mmol/L (22-29); Chloride 107 mmol/L (96-108); Estimated Glomerular Filt Rate > 60; Glucose Random 91 mg/dL (60-115); Potassium 4.5 mmol/L (3.3-5.1); Sodium 142 mmol/L (135-145); Total Protein 6.6 g/dL (6.5-8.0)
== END 2020-09-02 09:53 | disposition home or self-care (01) ==
LOC: HO.LAB 09:52
PROVIDERS: PCP Internal Medicine; Visit Provider Physician Assistant
DX: R10.11 Right upper quadrant pain (principal)
CPT/HCPCS: 36415; 80053; 85025

== ENCOUNTER 2020-09-04 08:09 | Day surgery (SDC) | payer MEDICAID, SELFPAY ==
[2020-08-29 19:39] VITALS: BMI 25.6
--- NOTE | 2020-09-03 12:46 | HO.ANESPROP2 ---
Documented by User: Karrie Pattie 09/03/20 12:48 HPI - Anesthesia Eval Consult details Narrative: 59yo F for Upper Endoscopy with Baker PMFSH Active Problems Active Problems: All Active Problems (Updated 07/31/20 @ 12:44 by Ashley Marie PA-C) Abdominal pain (Acute) Barretts esophagus (Acute) Acid reflux (Acute) Past Medical History Medical History Abdominal pain Acid reflux Anxiety Barretts esophagus COPD (chronic obstructive pulmonary disease) CVA (cerebral vascular accident) Depression Dyspnea Hypertension Family History Family History Mother Cancer Maternal Grandmother Cancer Surgical History Surgical History H/O section History of appendectomy History of cholecystectomy Social History Social History Household Members: None Alcohol intake: current Alcohol intake frequency: does not drink Smoking Status: Never smoker Use of substances other than those prescribed or required for medical reasons: No Advance Directives: No Advance Directives Information Provided: No Advance Directives on File: No Meds Allergies Allergy/AdvReac Type Severity Reaction Status Date / Time No Known Allergies Allergy Verified 09/04/20 09:55 [No Known Allergies*] Home Medications Medication Instructions Recorded Confirmed Last Taken Type atorvastatin 40 mg tablet 40 mg PO DAILY 07/31/20 08/29/20 Unknown History citalopram 20 mg tablet 20 mg PO DAILY 07/31/20 08/29/20 Unknown History clopidogrel 75 mg tablet 75 mg PO DAILY 07/31/20 08/29/20 08/25/20 History gabapentin 100 mg capsule 100 mg PO BID 07/31/20 08/29/20 Unknown History hydrochlorothiazide 25 mg tablet 25 mg PO DAILY 07/31/20 08/29/20 Unknown History omeprazole 20 mg capsule,delayed 20 mg PO DAILY 07/31/20 08/29/20 Unknown History release acetaminophen 1 - 2 tab PO BID PRN 08/29/20 08/29/20 Unknown History fluticasone propion-salmeterol 1 puff INHALATION Q12H 08/29/20 08/29/20 Unknown History [Advair Diskus] quetiapine 1 tab PO DAILY 08/29/20 08/29/20 Unknown History quetiapine 2 tab PO BEDTIME 08/29/20 08/29/20 Unknown History Exam Exam Date and Time: September 03, 2020 1246 Height,Weight and Vital Signs: Height 5 ft 2 in Weight 63.503 kg Pertinent Lab Results Pertinent Lab Results: Laboratory Tests 09/02/20 09/02/20 10:03 10:03 WBC 5.2 Hgb 12.4 Hct 37.7 Plt Count 155 L Sodium 142 Potassium 4.5 Chloride 107 Carbon Dioxide 29 BUN 12 Creatinine 0.88 Narrative Narrative: EKG 03/2020 Normal sinus rhythm Normal ECG When compared with ECG of 04-JUN-2019 10:55, No significant change was found PFT 03/2020 CONCLUSION: Mild obstructive airway disorder. Complete reversibility after bronchodilator therapy is indicative of bronchial asthma. Assessment and Plan Assessment Anesthesia Assessment: Chart Reviewed Documented by User: Isreal Schumacher 09/04/20 10:39 PMFSH Past Medical History Medical History Abdominal pain Acid reflux Anxiety Barretts esophagus COPD (chronic obstructive pulmonary disease) CVA (cerebral vascular accident) Depression Dyspnea Hypertension Family History Family History Mother Cancer Maternal Grandmother Cancer Surgical History Surgical History H/O section History of appendectomy History of cholecystectomy Social History Social History Household Members: None Alcohol intake: current Alcohol intake frequency: does not drink Smoking Status: Never smoker Use of substances other than those prescribed or required for medical reasons: No Advance Directives: No Advance Directives Information Provided: No Advance Directives on File: No Meds Allergies Allergy/AdvReac Type Severity Reaction Status Date / Time No Known Allergies Allergy Verified 09/04/20 09:55 [No Known Allergies*] Home Medications Medication Instructions Recorded Confirmed Last Taken Type atorvastatin 40 mg tablet 40 mg PO DAILY 07/31/20 08/29/20 Unknown History citalopram 20 mg tablet 20 mg PO DAILY 07/31/20 08/29/20 Unknown History clopidogrel 75 mg tablet 75 mg PO DAILY 07/31/20 08/29/20 08/25/20 History gabapentin 100 mg capsule 100 mg PO BID 07/31/20 08/29/20 Unknown History hydrochlorothiazide 25 mg tablet 25 mg PO DAILY 07/31/20 08/29/20 Unknown History omeprazole 20 mg capsule,delayed 20 mg PO DAILY 07/31/20 08/29/20 Unknown History release acetaminophen 1 - 2 tab PO BID PRN 08/29/20 08/29/20 Unknown History fluticasone propion-salmeterol 1 puff INHALATION Q12H 08/29/20 08/29/20 Unknown History [Advair Diskus] quetiapine 1 tab PO DAILY 08/29/20 08/29/20 Unknown History quetiapine 2 tab PO BEDTIME 08/29/20 08/29/20 Unknown History Exam Airway Mallampati Class: II TM Dist: >3cm Neck ROM: Full
[2020-09-04] VITALS (8 sets, daily range): BP systolic 87–161; BP diastolic 51–83; PULSE 74–92; RESP 1–20; TEMP 36.6–36.9; O2SAT 98–100
[2020-09-04] MEDS: Lactated Ringers 1,000 ML 100 ML IVCONT (10:24)
--- NOTE | 2020-09-04 11:14 | MHC.SHP ---
Pre-Procedural Eval Section B Chief Complaint: reflus disease, willett's esophagus Relevant Family History (Specify if Yes): No Relevant Social History: None Present Medications: see Short Stay Collaborative assessment Medical History: Significant History (Abdominal pain Acid reflux Anxiety Barretts esophagus COPD (chronic obstructive pulmonary disease) CVA (cerebral vascular accident) Depression Dyspnea Hypertension) History of Previous Operations: Relevant previous surgery/procedure and date(s) (cholecystectomy, appendectomy, c section) Allergies: Allergies Allergy/AdvReac Type Severity Reaction Status Date / Time No Known Allergies Allergy Verified 09/04/20 09:55 [No Known Allergies*] Review of Systems Sugical H&P ROS: Negative: Constitution, Cardiovascular, Respiratory, Neurological, Psychiatric, Hem-Onc, Allergic/Immunologic, Gastrointestinal, Genitourinary, Musculoskeletal, Integumentary, Endocrine and Eyes/Ears/Nose/Throat Exam Surgical H&P Exam: Normal: HEENT, Normal: Heart, Normal: Lungs, Normal: Extremities, Normal: Abdomen, Normal: Skin and Normal: Neurological Plan Diagnosis/Plan: Unchanged I have reviewed the history and physical and performed a pertinent physical examination on my patient. No changes have occurred unless specified.
--- NOTE | 2020-09-04 11:36 | PM.OP ---
Brief Operative Note Date of Service: 09/04/20 Pre-op diagnosis: hx of barretts Post-op diagnosis: same Procedure: see op note Surgeon: Radha Kiser MD Anesthesia: MAC Estimated blood loss (mL): 0 Condition: stable Disposition: PACU
--- NOTE | 2020-09-04 11:37 | W.PM.OPN ---
Operative Note Operative Note Date of Service: 09/04/20 Narrative: Procedure Description: EGD FLEXIBLE TRANSORAL UPPER GASTROINTESTINAL ENDOSCOPY UPPER ENDOSCOPY Consent: Indications for the procedure and potential complications of bleeding, perforation, reaction to medications and missed diagnosis were discussed with the patient and informed consent was obtained. Instrument: Olympus GIF H 190 J mid size upper endoscope Monitoring: Vital signs and clinical assessment, continuous EKG monitoring, Pulse oximetry, Carbon Dioxide monitoring and blood pressure monitoring were done throughout the procedure. Procedure: The patient was placed in the left lateral decubitis position and pre-procedure medications were administered and a bite block was placed. The endoscope was inserted into the mouth and advanced under direct vision to the third part of duodenum. A careful inspection was made as the upper endoscope was withdrawn including a retroflexed examination of the proximal stomach; Findings and interventions are described below. Findings: Larynx:normal Esophagus: GE junction at 35 cm, diaphragm hiatus at 37 cm, no varices or esophagitis, irregular Z line, few islands of willett like mucosa, bx taken as well as brushings for WATS 3D testing Stomach: Normal mucosa. Grade 2 flap valve on retroflexed examination of the cardia. Duodenum: Normal bulb and descending duodenum, Intervention: Biopsies as noted above Impression/Findings: hiatal hernia barretts esophagus PLAN: await results, surveillance depending on results
[2020-09-04] MEDS: Magnesium Hydrox/Alum Hydrox 30 ML ORAL.SUSP PO (12:58)
[2020-09-04] MEDS: ondansetron HCL 4 MG/2 ML VIAL IVPUSH (12:59)
[2020-09-04] MEDS: Pantoprazole Sodium 40 MG/10 ML VIAL 80 MG IVPUSH (13:04)
== END 2020-09-04 14:19 | disposition home or self-care (01) ==
PROVIDERS: PCP Internal Medicine; Visit Provider Internal Medicine Gastroenterology
PROC: 0DJ08ZZ Inspection of Upper Intestinal Tract, Via Natural or Artificial Opening Endoscopic (ICD-10-PCS; CPT 43235; principal; 2020-09-04 10:40)
DX: K21.9 Gastro-esophageal reflux disease without esophagitis (principal); K22.70 Barrett's esophagus without dysplasia; K44.9 Diaphragmatic hernia without obstruction or gangrene; J44.9 Chronic obstructive pulmonary disease, unspecified; I10 Essential (primary) hypertension; I69.951 Hemiplegia and hemiparesis following unspecified cerebrovascular disease affecting right dominant side; Z79.51 Long term (current) use of inhaled steroids; Z79.899 Other long term (current) drug therapy; Z90.49 Acquired absence of other specified parts of digestive tract
CPT/HCPCS: 43239; 88305; J2405

== ENCOUNTER → 2020-09-11 10:17 | Outpatient (BNVA) | payer MEDICAID, SELFPAY | PROVIDERS: PCP Internal Medicine; Visit Provider Physician Assistant ==

== ENCOUNTER → 2020-10-09 12:59 | Outpatient (REF) | payer MEDICAID, SELFPAY ==
--- NOTE | 2020-10-09 13:30 | ECG_ITS ---
Hook-up date: 2020-10-09 13:17:00 Duration: 47:59:00 Test Indications: R00.2 Medications: 416683 QRS complexes 15 Ventricular ectopics which represent <1 % of total QRS comp. 26 Supraventricular ectopics which represent <1 % of total QRS comp. * Paced QRS complexs which represent % of total QRS comp. VENTRICULAR ECTOPY 15 Isolated 0 Bigeminal Cycles 0 Couplets 0 Runs 0 Beats in Runs * Beats LONGEST at * BPM at :: -- * Beats FASTEST at * BPM at :: -- SUPRAVENTRICULAR ECTOPY 15 Isolated 1 Couplets 2 Runs 9 Beats in Runs 5 Beats LONGEST at 122 BPM at 22:54:34 2020-10-09 5 Beats FASTEST at 122 BPM at 22:54:34 2020-10-09 HEART RATES 65 MIN at 15:49:12 2020-10-09 82 AVG 146 MAX at 12:30:57 2020-10-10 LONGEST RR 1.4400 secs at 14:50:04 2020-10-09 S-T LEVELS Channel 1 - 128 mm at 13:17:00 2020-10-09 - 128 mm at 13:17:00 2020-10-09 Channel 2 - 128 mm at 13:17:00 2020-10-09 - 128 mm at 13:17:00 2020-10-09 Channel 3 - 128 mm at 03:23:61 -- - 128 mm at 03:23:61 Underlying rhythm is sinus; Average ventricular rate 82/min; Occasional sinus tachycardia but no other tachy-arrhythmias; Rare supraventricular/ventricular ectopy; Shortness of breath in patient diary associated with sinus tachycardia. Referred By: Shannon Ordaz Overread By: JOAN HULL
== END ==
LOC: HO.CARD 12:59
PROVIDERS: Visit Provider Internal Medicine
DX: R00.2 Palpitations (principal)
CPT/HCPCS: 93225; 93226

== ENCOUNTER 2021-04-08 12:47 | Emergency (ER) | payer MEDICAID, SELFPAY ==
--- NOTE | 2021-04-08 12:52 | ECG_ITS ---
Test Reason : cp Blood Pressure : / mmHG Vent. Rate : 087 BPM Atrial Rate : 087 BPM P-R Int : 156 ms QRS Dur : 092 ms QT Int : 374 ms P-R-T Axes : 056 045 046 degrees QTc Int : 450 ms Normal sinus rhythm Normal ECG No previous ECGs available Referred By: Generic ED Physician Electronically Signed By:ALINA ALMANZA MD
[2021-04-08 13:43] VITALS: BP 151/86; PULSE 84; RESP 18; TEMP 36.3; O2SAT 98; BMI 29.6
[2021-04-08 16:05] VITALS: BP 137/74; PULSE 89; RESP 27; TEMP 36.9; O2SAT 99
--- NOTE | 2021-04-08 16:07 | ED_ITS ---
HPI - Chest Pain General Chief Complaint: Chest Pain Stated Complaint: cp Time Seen by Provider: 04/08/21 16:07 Source: patient Mode of arrival: ambulatory Limitations: no limitations History of Present Illness HPI narrative: the past three days she had chest pain. worse in the morning. The pain wakes her up and last a few moments. When she walks she is getting pain. The pain is a squeezing that goes to her back, with shortness of breath. She has been seen for this in the past by her PMD, they told her that her heart is weak. patient denies recent stress test or catherization. MD complaint: chest heaviness Onset (ago): day(s) Timing of current episode: episodic Prior episodes: Yes Onset: during rest and during exertion Pain location: substernal and left chest Pain radiation: back Severity: mild Quality: tightness Relieving factors: rest Exacerbating factors: exertion Associated symptoms: dyspnea Risk Factors Coronary artery disease risk factors: hyperlipidemia and hypertension Related Data Home Medications Medication Instructions Recorded Confirmed atorvastatin 40 mg tablet 40 mg PO DAILY 07/31/20 09/11/20 citalopram 20 mg tablet (Celexa) 20 mg PO DAILY 07/31/20 09/11/20 clopidogrel 75 mg tablet 75 mg PO DAILY 07/31/20 09/11/20 gabapentin 100 mg capsule 100 mg PO BID 07/31/20 09/11/20 hydrochlorothiazide 25 mg tablet 25 mg PO DAILY 07/31/20 09/11/20 acetaminophen 500 mg tablet 1 - 2 tab PO BID PRN 08/29/20 09/11/20 fluticasone 500 mcg-salmeterol 50 1 puff INHALATION Q12H 08/29/20 09/11/20 mcg/dose blistr powdr for inhalation (Advair Diskus) quetiapine 100 mg tablet 2 tab PO BEDTIME 08/29/20 09/11/20 quetiapine 25 mg tablet 1 tab PO DAILY 08/29/20 09/11/20 Previous Rx's Medication Instructions Recorded pantoprazole 40 mg tablet,delayed 40 mg PO DAILY #90 tab 09/11/20 release famotidine 40 mg tablet 40 mg PO BEDTIME #30 tab 03/05/21 Allergies Allergy/AdvReac Type Severity Reaction Status Date / Time No Known Allergies Allergy Verified 04/08/21 13:43 [No Known Allergies*] FOR[facility]LY [facility] Past Medical History Medical History Abdominal pain Acid reflux Anxiety Barretts esophagus COPD (chronic obstructive pulmonary disease) CVA (cerebral vascular accident) Depression Dyspnea Hypertension Surgical History H/O section History of appendectomy History of cholecystectomy Family History Family History Mother Cancer Maternal Grandmother Cancer Social History Social History (Updated 09/11/20 @ 10:25 by Alena Michelle CMA) Household Members: None Alcohol intake: never Patient Tobacco Use Status: Never used Tobacco Use of substances other than those prescribed or required for medical reasons: No Advance Directives: No Advance Directives Information Provided: Yes Patient : No Current occupational status: disabled Physical Exam Vital Signs: Vital Signs: Last Vital Signs Temp 97.6 F 04/08/21 18:00 Pulse 86 04/08/21 18:00 Resp 23 H 04/08/21 18:00 BP 147/80 H 04/08/21 18:00 Pulse Ox 99 04/08/21 18:00 Body Mass Index 29.6 Course Reevaluation(s) Reevaluation #1: patient with HTN and high cholesterol but no history of CAD. She has had chest pain on and off for the past few day, EKG normal, troponin negative x2. Not likely to be cardiac chest pain will dc home Time: 19:57 MDM - Chest Pain Lab Data Result diagrams: 04/08/21 16:31 04/08/21 16:31 Labs: Lab Results 04/08/21 04/08/21 04/08/21 Range/Units 16:31 16:31 16:31 WBC 5.5 (4.8-10.8) X10*3/uL RBC 4.11 L (4.20-5.50) X10*6/uL Hgb 11.9 L (12.0-16.0) g/dl Hct 35.3 L (37-47) % MCV 85.9 (80-98) fL MCH 29.0 (27.0-33.0) pg MCHC 33.7 (31.0-35.0) g/dl RDW 14.5 (11.0-16.0) % Plt Count 206 D (160-400) X10*3/uL MPV 12.7 H (9.4-12.3) fL Immature Gran % (Auto) 0.2 (0.0-0.4) % Neut % (Auto) 65.0 (45-73) % Lymph % (Auto) 17.4 L (20-40) % [place] % (Auto) 9.5 (2-11) % Eos % (Auto) 7.2 H (0-4) % Baso % (Auto) 0.7 (0-2) % Lymph # (Auto) 1.0 L (1.2-4.9) X10*3/uL [place] # (Auto) 0.5 (0.1-1.2) X10*3/uL Eos # (Auto) 0.4 (0.0-0.4) X10*3/uL Baso # (Auto) 0.0 (0.0-0.2) X10*3/uL Abs Immat Gran (auto) 0.01 (0.00-0.03) X10*3/uL Absolute Neuts (auto) 3.5 (2.0-8.3) X10*3/uL Absolute Nucleated RBC 0.000 (0.0-0.012) X10*3/uL Nucleated RBC % (auto) 0.0 (0.0-0.2) /100WBC Sodium 140 (135-145) mmol/L Potassium 3.6 (3.3-5.1) mmol/L Chloride 105 (96-108) mmol/L Carbon Dioxide 26 (22-29) mmol/L Anion Gap 13 (12-20) BUN 15 (9-16) mg/dL Creatinine 1.09 (0.5-1.4) mg/dL Estim Creat Clear Calc 52.1 Estimated GFR 51 Random Glucose 112 (60-115) mg/dL Calcium 8.9 (8.4-10.2) mg/dL Troponin I High Sens < 3.5 (<3.5-17.0) ng/L 04/08/21 Range/Units 19:20 WBC (4.8-10.8) X10*3/uL RBC (4.20-5.50) X10*6/uL Hgb (12.0-16.0) g/dl Hct (37-47) % MCV (80-98) fL MCH (27.0-33.0) pg MCHC (31.0-35.0) g/dl RDW (11.0-16.0) % Plt Count (160-400) X10*3/uL MPV (9.4-12.3) fL Immature Gran % (Auto) (0.0-0.4) % Neut % (Auto) (45-73) % Lymph % (Auto) (20-40) % [place] % (Auto) (2-11) % Eos % (Auto) (0-4) % Baso % (Auto) (0-2) % Lymph # (Auto) (1.2-4.9) X10*3/uL [place] # (Auto) (0.1-1.2) X10*3/uL Eos # (Auto) (0.0-0.4) X10*3/uL Baso # (Auto) (0.0-0.2) X10*3/uL Abs Immat Gran (auto) (0.00-0.03) X10*3/uL Absolute Neuts (auto) (2.0-8.3) X10*3/uL Absolute Nucleated RBC (0.0-0.012) X10*3/uL Nucleated RBC % (auto) (0.0-0.2) /100WBC Sodium (135-145) mmol/L Potassium (3.3-5.1) mmol/L Chloride (96-108) mmol/L Carbon Dioxide (22-29) mmol/L Anion Gap (12-20) BUN (9-16) mg/dL Creatinine (0.5-1.4) mg/dL Estim Creat Clear Calc Estimated GFR Random Glucose (60-115) mg/dL Calcium (8.4-10.2) mg/dL Troponin I High Sens < 3.5 (<3.5-17.0) ng/L ECG Data ECG #1: Attestation: I personally reviewed and interpreted this ECG as follows: Interpretation: sinus [address] or twave changes Discharge Plan Discharge Clinical Impression: Chest pain Qualifiers: Chest pain type: unspecified Qualified Code(s): R07.9 - Chest pain, unspecified Patient Disposition: Home, Self-Care Instructions: Noncardiac Chest Pain (ED) Prescriptions: No Action pantoprazole 40 mg tablet,delayed release (DR/EC) 40 mg PO DAILY Qty: 90 RF: 3 famotidine 40 mg tablet 40 mg PO BEDTIME Qty: 30 RF: 1 quetiapine 25 mg tablet 1 tab PO DAILY RF: 0 quetiapine 100 mg tablet 2 tab PO BEDTIME RF: 0 acetaminophen 500 mg tablet 1 - 2 tab PO BID PRN (Reason: headache) RF: 0 fluticasone propion-salmeterol [Advair Diskus] 500-50 mcg/dose blister with device 1 puff inhalation Q12H RF: 0 clopidogrel 75 mg tablet 75 mg PO DAILY RF: 0 gabapentin 100 mg capsule 100 mg PO BID RF: 0 atorvastatin 40 mg tablet 40 mg PO DAILY RF: 0 hydrochlorothiazide 25 mg tablet 25 mg PO DAILY RF: 0 citalopram [Celexa] 20 mg tablet 20 mg PO DAILY RF: 0 Referrals: Shannon Ordaz MD [Primary Care Provider] - 5 days
[2021-04-08 16:41] LABS: Basophils Percent Auto 0.7 % (0-2); Eosinophils Absolute Auto 0.4 X10*3/uL (0.0-0.4); Eosinophils Percent Auto 7.2 % (0-4); Hematocrit 35.3 % (37-47); Hemoglobin 11.9 g/dl (12.0-16.0); Imm Gran Abs Auto 0.01 X10*3/uL (0.00-0.03); Imm Gran Pct Auto 0.2 % (0.0-0.4); Lymphocytes Percent Auto 17.4 % (20-40); MANUAL DIFF FLAG NO; Mean Corpuscular HGB Conc 33.7 g/dl (31.0-35.0); Mean Corpuscular Volume 85.9 fL (80-98); Mean Platelet Volume 12.7 fL (9.4-12.3); Monocytes Absolute Auto 0.5 X10*3/uL (0.1-1.2); Monocytes Percent Auto 9.5 % (2-11); Neutrophils Absolute Auto 3.5 X10*3/uL (2.0-8.3); Platelet Count 206 X10*3/uL (160-400); Red Blood Count 4.11 X10*6/uL (4.20-5.50); Red Cell Distribution Width 14.5 % (11.0-16.0); White Blood Count 5.5 X10*3/uL (4.8-10.8)
[2021-04-08 16:44] VITALS: BP 141/81; PULSE 83
[2021-04-08] MEDS: Nitroglycerin 2 % Oint 1 GM Packet 1 INCH TRANSDERMA (16:44)
[2021-04-08 17:00] LABS: Anion Gap 13 (12-20); Blood Urea Nitrogen 15 mg/dL (9-16); Calcium 8.9 mg/dL (8.4-10.2); Carbon Dioxide 26 mmol/L (22-29); Chloride 105 mmol/L (96-108); Creatinine Clr Calc Pharmacy 52.1; Estimated Glomerular Filt Rate 51; Glucose Random 112 mg/dL (60-115); Potassium 3.6 mmol/L (3.3-5.1); Sodium 140 mmol/L (135-145)
[2021-04-08 17:03] LABS: Troponin-I High Sensitivity < 3.5 ng/L (<3.5-17.0)
[2021-04-08 18:00] VITALS: BP 147/80; PULSE 86; RESP 23; TEMP 36.4; O2SAT 99
[2021-04-08 19:51] LABS: Troponin-I High Sensitivity < 3.5 ng/L (<3.5-17.0)
== END 2021-04-08 20:12 | disposition home or self-care (01) ==
PROVIDERS: Emergency Provider Emergency Medicine; PCP Internal Medicine
DX: R07.9 Chest pain, unspecified (principal); I10 Essential (primary) hypertension; E78.5 Hyperlipidemia, unspecified; J44.9 Chronic obstructive pulmonary disease, unspecified; Z86.73 Personal history of transient ischemic attack (TIA), and cerebral infarction without residual deficits
CPT/HCPCS: 36415; 80048; 84484; 85025; 93005; 99283; 99284; 99285

== ENCOUNTER → 2021-07-16 07:25 | Outpatient (REF) | payer MEDICAID, SELFPAY ==
--- NOTE | 2021-07-16 07:31 | CA_ITS ---
Transthoracic Echocardiogram Patient (Last, First, Middle): Gabrielle Street M Gender: Female Date of : 1960 Age: 60 Procedure Date: 07/16/2021 Procedure Type: Transthoracic Echocardiogram Location: OP Height: 160.02 cm Weight: 63.5 kg BSA: 1.66 m2 Heart Rate: bpm BP: 145 / 96 mmHg Dredge Master: ARIANE Referring MD: Shannon Ordaz MD Insulation Extruder Operator: Pierre Laureano MD Symptoms: HTN Study Quality: Fair ECG Rhythm: Sinus Conclusions: - 1. Normal LV systolic function with grade 1 diastolic dysfunction 2. Normal cardiac valvular Doppler 3. Normal RV systolic pressure 4. No pericardial effusion Findings Left Ventricle Normal left ventricular size, thickness, and systolic function. The visually estimated ejection fraction is between 55-60%. Spectral Doppler is indicative of an impaired relaxation filling pattern. E/E prime ratio is <8, consistent with normal filling pressures. Evidence suggests grade I (mild) diastolic dysfunction. Right Ventricle Normal right ventricular cavity size and systolic function. Atria Both atria are normal in size. There is no evidence of interatrial shunt. Aortic Valve Normal aortic valve structure and function. There is no aortic valve stenosis. There is no aortic valve regurgitation. Mitral Valve Normal mitral valve structure and function. There is trace mitral valve regurgitation. There is no mitral valve stenosis. Pulmonic Valve The pulmonic valve is likely normal. Tricuspid Valve Normal tricuspid valve structure. There is no evidence of pulmonary hypertension. Great Vessels All visible segments of the aorta are normal in size. The pulmonary artery was not well visualized. Venous The inferior vena cava is normal in size and collapses greater than 50% with inspiration. Pericardium/Pleural There is no evidence of pericardial effusion. Prior Study Comparison No prior study available for comparison. Measurements 2D Linear Measurements IVSd: 0.80 0.6-0.9/0.6-1.0 cm LVIDd: 3.91 3.9-5.3/4.2-5.9 cm LVIDd Index: 2.36 2.4-3.2/2.2-3.1 cm/m2 LVIDs: 3.12 2.0-3.6 cm LVPWd: 0.78 0.7-1.1 cm Ao Root: 3.00 2.1-3.5 cm LA Diam: 3.00 2.7-3.8/3.0-4.0 cm LAIDs Index: 1.81 1.5-2.3 cm/m2 LV Mass: 109.36 67-162/88-224 g LV Mass Index: 65.88 43-95/49-115 g/m2 LVOT Diam: 2.00 3.0+(-)1.3 cm 2D Systolic Function EF 4C: 53.00 >55% EF 2C: 60.30 >55% EF BiP: 56.00 >55% Mitral Valve MV Pk E: 0.81 MV PK A: 1.01 MV Decel Time: 183.00 E/A: 0.80 E'Lateral: 7.72 E'Medial: 6.74 E/E' Med: 12.00 E/E' Lat: 10.50 PHT: 54.00 MVA PHT: 4.07 Decel [place]: 4.42 Aortic Valve AoV Pk Jefferson: 1.41 AoV Mn [place]: 1.09 AoV VTI: 0.32 AoV Pk Grad: 8.00 Aov Mn Grad: 5.00 JOSE Cont.VTI: 2.47 LVOT LVOT Pk [place]: 1.17 LVOT Mn [place]: 0.85 LVOT VTI: 0.25 LVOT Pk Grad: 5.00 LVOT Mn Grad: 3.00 LVOT Diam: 2.00 LVOT Area: 3.14 Diastolic Function MV Pk E: 0.81 MV Pk A: 1.01 E/A: 0.80 E'Medial: 6.74 E/E' Med: 12.00 E' Laterial: 7.72 E/E' Lat: 10.50 Right Ventricle TAPSE (mm): 23.60 TVS' Jefferson: 10.00 Tricuspid Valve TR Pk [place]: 2.47 TR Pk Grad: 24.00 RA Press: 3.00 RVSP: 27.00 Great Vessels Aorta Ao Root-2D: 3.00 2.0-3.7 cm Ao Asc: 3.00 2.1-3.4 cm Ao Arch: 3.00 Updated in Other Vendor System with Status of Final Pierre Laureano MD electronically signed on 07/16/2021 10:57:38 AM with status of Final
== END ==
LOC: HO.CARD 07:25
PROVIDERS: PCP Internal Medicine; Visit Provider Internal Medicine
DX: I10 Essential (primary) hypertension (principal); R07.89 Other chest pain
CPT/HCPCS: 93306

== ENCOUNTER → 2021-07-23 09:59 | Outpatient (BNVA) | payer MEDICAID, SELFPAY | PROVIDERS: PCP Internal Medicine; Referring Provider Internal Medicine; Visit Provider Physician Assistant | DX: K64.8 Other hemorrhoids (principal); R10.9 Unspecified abdominal pain; K59.09 Other constipation; R07.9 Chest pain, unspecified; Z86.010 Personal history of colon polyps | CPT/HCPCS: 99212 ==

== ENCOUNTER 2021-07-23 11:10 | Emergency (ER) | payer MEDICAID, SELFPAY ==
--- NOTE | 2021-07-23 11:11 | ECG_ITS ---
Test Reason : CHEST PAIN Blood Pressure : / mmHG Vent. Rate : 099 BPM Atrial Rate : 099 BPM P-R Int : 144 ms QRS Dur : 086 ms QT Int : 354 ms P-R-T Axes : 049 030 031 degrees QTc Int : 454 ms Normal sinus rhythm Normal ECG When compared with ECG of 08-APR-2021 13:02, No significant change was found Referred By: Generic ED Physician Electronically Signed By:RENETTA BARNETT MD
[2021-07-23 11:20] VITALS: BP 136/82; PULSE 100; RESP 18; TEMP 36.5; O2SAT 97; BMI 30.7
--- NOTE | 2021-07-23 11:56 | ED_ITS ---
HPI - Chest Pain General Chief Complaint: Chest Pain Stated Complaint: chest pain Time Seen by Provider: 07/23/21 11:32 Source: patient Mode of arrival: ambulatory Limitations: no limitations History of Present Illness HPI narrative: 60-year-old female who presents emergency department for evaluation chest pain. The patient had a routine visit today with the health program specialist in order to schedule a colonoscopy. She states that the health program specialist was listening to her heart in asked her if she had chest pain. Patient told the health program specialist that she had chest pain Tuesday and is currently still having chest pain, therefore the patient was sent to the emergency department for evaluation. The patient states that Tuesday morning ( 5 days prior to evaluation) she had a sudden onset of left-sided chest pain. She points to 1 small area on her chest just lateral to the sternum when she is asked to localize the pain. She states the pain is an intermittent, moderately severe, sharp pain that radiates to her back. The pain lasts seconds and then comes back. She states she has multiple episodes of this pain a during the day. The pain does seem to get worse with exertion she does have dyspnea on exertion as well. The patient states that from [id number] hours on Tuesday she continued to have these pains therefore she called an ambulance and was seen at [facility]. She states she had blood work and chest x-ray was told that she had bronchitis and was discharged home. She states that since the onset of her pain she continues to have multiple episodes per day which lasts seconds and then come back. She denied fever, chills, cough. She has had nausea but no vomiting. She denied myalgias, arthralgias else or diarrhea. Patient states that she had a COVID-19 infection approximately 1 year prior. She had the 2 shot Moderna COVID-19 vaccine. She states she had a COVID-19 test at [facility] on Tuesday morning which was negative and she does not believe she has been exposed to COVID-19. Related Data Home Medications Medication Instructions Recorded Confirmed atorvastatin 40 mg tablet 40 mg PO DAILY 07/31/20 09/11/20 citalopram 20 mg tablet (Celexa) 20 mg PO DAILY 07/31/20 09/11/20 clopidogrel 75 mg tablet 75 mg PO DAILY 07/31/20 09/11/20 hydrochlorothiazide 25 mg tablet 25 mg PO DAILY 07/31/20 09/11/20 acetaminophen 500 mg tablet 1 - 2 tab PO BID PRN 08/29/20 09/11/20 fluticasone 500 mcg-salmeterol 50 1 puff INHALATION Q12H 08/29/20 09/11/20 mcg/dose blistr powdr for inhalation (Advair Diskus) quetiapine 25 mg tablet 1 tab PO DAILY 08/29/20 09/11/20 bupropion HCl 300 mg 24 hr 300 mg PO QAM 07/23/21 tablet, extended release gabapentin 600 mg tablet 600 mg PO 07/23/21 haloperidol 1 mg tablet 0 mg PO 07/23/21 mirtazapine 45 mg tablet 45 mg PO BEDTIME 07/23/21 quetiapine 100 mg tablet 400 mg PO BEDTIME tab 07/23/21 Previous Rx's Medication Instructions Recorded pantoprazole 40 mg tablet,delayed 40 mg PO DAILY #90 tab 09/11/20 release famotidine 40 mg tablet 40 mg PO BEDTIME #30 tab 06/23/21 Allergies Allergy/AdvReac Type Severity Reaction Status Date / Time No Known Allergies Allergy Verified 07/23/21 11:20 [No Known Allergies*] Review of Systems Verdana 4l Review of Systems: Yes all other systems are reviewed and Verdana 4d are negative PMFSH Past Medical History Medical History Abdominal pain Acid reflux Anxiety Barretts esophagus Chronic constipation COPD (chronic obstructive pulmonary disease) CVA (cerebral vascular accident) Depression Dyspnea History of colon polyps Hypertension Internal hemorrhoids Surgical History H/O section History of appendectomy History of cholecystectomy History of esophagogastroduodenoscopy (EGD) Hx of colonoscopy Family History Family History Mother Cancer Maternal Grandmother Cancer Social History Social History Household Members: None Alcohol intake: never Patient Tobacco Use Status: Never used Tobacco Advance Directives: No Advance Directives Information Provided: No Current occupational status: disabled Physical Exam Verdana 4l Vital Signs: Verdana 4d Verdana 4d Vital Signs: Verdana 4d Verdana 4Bd Last Vital Signs Verdana 4d Care Transition Manager New 4d Care Transition Manager New 4d Temp 97.9 F 07/23/21 12:07 Care Transition Manager New 4d Pulse 96 07/23/21 12:07 Care Transition Manager New 4d Resp 18 07/23/21 12:07 BP 134/73 07/23/21 12:07 Pulse Ox 97 07/23/21 12:07 BMI result Body Mass Index 30.7 Const: General: cooperative and no acute distress Orientation/consciousness: oriented to person and oriented to place Limitations: no limitations HENMT: Head: Yes normal to inspection, Yes normocephalic and Yes atraumatic Ears: external ears normal General nose exam: Normal external nose present Face and sinus: Yes normal facial exam Mouth: Normal oral and palatal mucosa present Throat: Yes posterior oropharynx normal Eyes: General: appearance normal, both eyes and all related structures Pupils: Equal, round and reactive pupils present Neck: Neck: Yes normal visual inspection, Yes no lymphadenopathy, Yes trachea midline and Yes supple Chest: Chest palpation & inspection: normal inspection of the chest and normal palpation of entire chest wall Resp: Effort & Inspection: normal respiratory effort and able to speak in complete sentences Auscultation: clear to auscultation bilaterally Cardio: Rate: regular rate Rhythm: regular rhythm Heart sounds: S1 normal heart sound present, S2 normal heart sound present and no murmurs GI: Inspection: Yes normal to inspection Palpation (GI): Soft to palpation, nontender and no guarding Auscultation: normal bowel sounds : General: Yes no CVA tenderness Back/Spine/Pelvis: Back: no CVA tenderness Skin: General skin exam: no rashes or lesions noted Neuro: General: oriented to person and oriented to place Cranial nerves: Yes CN's II-XII intact bilaterally and Yes Equal, round and reactive pupils present Cognition (Neuro): normal cognition Motor exam (neuro): 5/5 motor strength present throughout Extrem: General: Yes normal to inspection Psych: Appearance: grossly normal Speech and movement: Normal speech and movement present Affect: normal affect Attitude: cooperative Thought process: Normal thought process present Thought content: Normal thought content present Course Course Course Narrative: 60-year-old female who presents emergency department for evaluation of intermittent chest pain since Tuesday (5 days prior to evaluation). the chest pain is intermittent, lasts seconds but she has multiple episodes per day. It does radiate to her back. Chest pain is worse with exertion and is associated with dyspnea on exertion as well. Patient was apparently seen at [facility] her on Tuesday and had a negative workup, I will obtain these record from [facility]. Patient's physical examination revealed an elevated pulse of 100 otherwise normal vital signs with a temperature of 97.7? and O2 saturation 97% on room air. Her examination was unremarkable. Her 12 EKG was unremarkable. Patient's chest pain is atypical for coronary disease however given her age and other medical conditions I will do a workup to include CBC, CMP, high sensitivity troponin I. Patient will be given Tylenol 975 mg for her pain. 1301: Laboratory evaluation: Labs were unremarkable including and non elevated high sensitive troponin I. Twelve EKG was unremarkable. I did obtain the record from [facility], that time the patient had an EKG which is similar to today's EKG. She also had a non elevated troponin and non elevated D-dimer. at this time, the patient's pain is very atypical for coronary disease in a suspected it is more consistent with musculoskeletal /chest wall pain. The patient was advised to take Tylenol for pain. The patient will be discharged home and advised to follow-up with PCP for further evaluation and return if her symptoms get worse. MDM - Chest Pain Lab Data Result diagrams: 07/23/21 12:17 07/23/21 12:17 Labs: Lab Results 07/23/21 07/23/21 07/23/21 Range/Units 12:17 12:17 12:17 WBC 9.4 (4.8-10.8) X10*3/uL RBC 4.21 (4.20-5.50) X10*6/uL Hgb 12.1 (12.0-16.0) g/dl Hct 35.6 L (37.0-47.0) % MCV 84.6 (80.0-98.0) fL MCH 28.7 (27.0-33.0) pg MCHC 34.0 (31.0-35.0) g/dl RDW 14.6 (11.0-16.0) % Plt Count 223 (160-400) X10*3/uL MPV 12.7 H (9.4-12.3) fL Immature Gran % (Auto) 0.2 (0.0-0.4) % Neut % (Auto) 81.9 H (45-73) % Lymph % (Auto) 8.7 L (20-40) % [place] % (Auto) 6.8 (2-11) % Eos % (Auto) 2.0 (0-4) % Baso % (Auto) 0.4 (0-2) % Lymph # (Auto) 0.8 L (1.2-4.9) X10*3/uL [place] # (Auto) 0.6 (0.1-1.2) X10*3/uL Eos # (Auto) 0.2 (0.0-0.4) X10*3/uL Baso # (Auto) 0.0 (0.0-0.2) X10*3/uL Abs Immat Gran (auto) 0.02 (0.00-0.03) X10*3/uL Absolute Neuts (auto) 7.7 (2.0-8.3) x10*3/uL Absolute Nucleated RBC 0.000 (0.0-0.012) X10*3/uL Nucleated RBC % (auto) 0.0 (0.0-0.2) /100WBC Sodium 139 (135-145) mmol/L Potassium 4.2 (3.3-5.1) mmol/L Chloride 105 (96-108) mmol/L Carbon Dioxide 25 (22-29) mmol/L Anion Gap 13 (12-20) BUN 16 (9-16) mg/dL Creatinine 1.19 (0.5-1.4) mg/dL Estim Creat Clear Calc 43.1 Estimated GFR 46 Random Glucose 100 (60-115) mg/dL Calcium 9.5 D (8.4-10.2) mg/dL Total Bilirubin 0.6 (0.0-1.0) mg/dL AST 14 (5-31) U/L ALT 11 (0-31) U/L Alkaline Phosphatase 113 D (39-117) U/L Troponin I High Sens < 3.5 (<3.5-17.0) ng/L Total Protein 7.3 (6.5-8.0) g/dL Albumin 4.6 (3.5-5.0) g/dL ECG Data ECG #1: Attestation: I personally reviewed and interpreted this ECG as follows: Interpretation: 1112: Normal sinus rhythm with a rate of 99, normal DC interval, QRS duration QTC interval, inverted T-wave in lead 3, this is a normal EKG. I did compare this to the EKG done at [facility] on 07/17/2021 and there are no significant changes. Discharge Plan Discharge Clinical Impression: Acute costochondritis Patient Disposition: Home, Self-Care Instructions: Costochondritis (ED) Additional Instructions: Your blood work today and your EKG were normal. I compared these to the test that you had at [facility] and they are all unchanged which is reassuring. The chest pain that your having is not coming from your heart and is most likely caused by inflammation of the joints and the muscles of your chest, this is called costochondritis. Continue taking medications as prescribed by your doctors.. Take Tylenol (acetaminophen) 500 mg pills, 2 pills every 4 to 6 hours as needed for pain. Follow-up with your doctor in 2 days. Please return to the emergency department if your symptoms get worse or if you develop any symptoms that are concerning to you. Prescriptions: No Action pantoprazole 40 mg tablet,delayed release (DR/EC) 40 mg PO DAILY Qty: 90 3RF famotidine 40 mg tablet 40 mg PO BEDTIME Qty: 30 1RF quetiapine 25 mg tablet 1 tab PO DAILY 0RF Rx Instructions: am acetaminophen 500 mg tablet 1 - 2 tab PO BID PRN (Reason: headache) 0RF fluticasone propion-salmeterol [Advair Diskus] 500-50 mcg/dose blister with device 1 puff inhalation Q12H 0RF quetiapine 100 mg tablet 400 mg PO BEDTIME 0RF clopidogrel 75 mg tablet 75 mg PO DAILY 0RF atorvastatin 40 mg tablet 40 mg PO DAILY 0RF hydrochlorothiazide 25 mg tablet 25 mg PO DAILY 0RF citalopram [Celexa] 20 mg tablet 20 mg PO DAILY 0RF haloperidol 1 mg tablet 0 mg PO 0RF bupropion HCl 300 mg tablet extended release 24 hr 300 mg PO QAM 0RF mirtazapine 45 mg tablet 45 mg PO BEDTIME 0RF gabapentin 600 mg tablet 600 mg PO 0RF Print Language: German
[2021-07-23 12:07] VITALS: BP 134/73; PULSE 96; RESP 18; TEMP 36.6; O2SAT 97
[2021-07-23 12:22] LABS: MANUAL DIFF FLAG NO
[2021-07-23 12:24] LABS: Basophils Percent Auto 0.4 % (0-2); Eosinophils Absolute Auto 0.2 X10*3/uL (0.0-0.4); Hematocrit 35.6 % (37.0-47.0); Hemoglobin 12.1 g/dl (12.0-16.0); Imm Gran Abs Auto 0.02 X10*3/uL (0.00-0.03); Imm Gran Pct Auto 0.2 % (0.0-0.4); Lymphocytes Absolute Auto 0.8 X10*3/uL (1.2-4.9); Lymphocytes Percent Auto 8.7 % (20-40); Mean Corpuscular Hemoglobin 28.7 pg (27.0-33.0); Mean Corpuscular Volume 84.6 fL (80.0-98.0); Mean Platelet Volume 12.7 fL (9.4-12.3); Monocytes Absolute Auto 0.6 X10*3/uL (0.1-1.2); Monocytes Percent Auto 6.8 % (2-11); Neutrophils Absolute Auto 7.7 x10*3/uL (2.0-8.3); Neutrophils Percent Auto 81.9 % (45-73); Platelet Count 223 X10*3/uL (160-400); Red Blood Count 4.21 X10*6/uL (4.20-5.50); Red Cell Distribution Width 14.6 % (11.0-16.0); White Blood Count 9.4 X10*3/uL (4.8-10.8)
[2021-07-23 12:39] LABS: Alanine Aminotransferase 11 U/L (0-31); Albumin Level 4.6 g/dL (3.5-5.0); Alkaline Phosphatase 113 U/L (39-117); Anion Gap 13 (12-20); Aspartate Amino Transferase 14 U/L (5-31); Bilirubin Total 0.6 mg/dL (0.0-1.0); Blood Urea Nitrogen 16 mg/dL (9-16); Calcium 9.5 mg/dL (8.4-10.2); Carbon Dioxide 25 mmol/L (22-29); Chloride 105 mmol/L (96-108); Creatinine Clr Calc Pharmacy 43.1; Estimated Glomerular Filt Rate 46; Glucose Random 100 mg/dL (60-115); Potassium 4.2 mmol/L (3.3-5.1); Sodium 139 mmol/L (135-145); Total Protein 7.3 g/dL (6.5-8.0)
[2021-07-23 12:45] LABS: Troponin-I High Sensitivity < 3.5 ng/L (<3.5-17.0)
[2021-07-23] MEDS: Acetaminophen 325 MG TABLET 975 MG PO (12:53)
== END 2021-07-23 13:55 | disposition home or self-care (01) ==
PROVIDERS: Emergency Provider Emergency Medicine Emergency Medical Services; PCP Internal Medicine
DX: M94.0 Chondrocostal junction syndrome [Tietze] (principal); I10 Essential (primary) hypertension; Z86.73 Personal history of transient ischemic attack (TIA), and cerebral infarction without residual deficits
CPT/HCPCS: 36415; 80053; 84484; 85025; 93005; 99284

== ENCOUNTER 2021-09-18 11:13 | Emergency (ER) | payer MEDICAID, SELFPAY ==
--- NOTE | ~2021-09-18 | XR_ITS ---
EXAMINATION: LEFT FOOT AND ANKLE X-RAYS. CLINICAL INFORMATION: Pain post fall COMPARISON: None TECHNIQUE: 3 views of the left foot and 3 views of the left ankle FINDINGS: Left foot: Bone alignment is normal. No fracture or dislocation is seen. Joint spaces and soft tissues are normal. Left ankle: Bone alignment is normal. No fracture or dislocation is seen. The ankle mortise is normal. Soft tissues are normal. XR/XR foot LT min 3V IMPRESSION: Unremarkable exam.
--- NOTE | ~2021-09-18 | XR_ITS ---
EXAMINATION: LEFT FOOT AND ANKLE X-RAYS. CLINICAL INFORMATION: Pain post fall COMPARISON: None TECHNIQUE: 3 views of the left foot and 3 views of the left ankle FINDINGS: Left foot: Bone alignment is normal. No fracture or dislocation is seen. Joint spaces and soft tissues are normal. Left ankle: Bone alignment is normal. No fracture or dislocation is seen. The ankle mortise is normal. Soft tissues are normal. XR/XR ankle LT min 3V IMPRESSION: Unremarkable exam.
[2021-09-18 11:32] VITALS: BP 181/88; PULSE 95; RESP 16; TEMP 36.6; O2SAT 100; BMI 26.5
--- NOTE | 2021-09-18 12:56 | ED_ITS ---
HPI - Fall General Chief Complaint: Fall Stated Complaint: Fall/ L toe pain Time Seen by Provider: 09/18/21 12:56 History of Present Illness HPI Narrative: Patient complains of left little toe pain after tripping at home yesterday, no other injury no other complaint no numbness weakness or tingling Related Data Home Medications Medication Instructions Recorded Confirmed atorvastatin 40 mg tablet 40 mg PO DAILY 07/31/20 09/11/20 citalopram 20 mg tablet (Celexa) 20 mg PO DAILY 07/31/20 09/11/20 clopidogrel 75 mg tablet 75 mg PO DAILY 07/31/20 09/11/20 hydrochlorothiazide 25 mg tablet 25 mg PO DAILY 07/31/20 09/11/20 acetaminophen 500 mg tablet 1 - 2 tab PO BID PRN 08/29/20 09/11/20 fluticasone 500 mcg-salmeterol 50 1 puff INHALATION Q12H 08/29/20 09/11/20 mcg/dose blistr powdr for inhalation (Advair Diskus) quetiapine 25 mg tablet 1 tab PO DAILY 08/29/20 09/11/20 bupropion HCl 300 mg 24 hr tablet, 300 mg PO QAM 07/23/21 extended release gabapentin 600 mg tablet 600 mg PO 07/23/21 haloperidol 1 mg tablet 0 mg PO 07/23/21 mirtazapine 45 mg tablet 45 mg PO BEDTIME 07/23/21 quetiapine 100 mg tablet 400 mg PO BEDTIME tab 07/23/21 Previous Rx's Medication Instructions Recorded pantoprazole 40 mg tablet,delayed 40 mg PO DAILY #90 tab 09/11/20 release famotidine 40 mg tablet 40 mg PO BEDTIME #30 tab 08/18/21 Allergies Allergy/AdvReac Type Severity Reaction Status Date / Time No Known Allergies Allergy Verified 09/18/21 11:42 [No Known Allergies*] Review of Systems Review of Systems: Positive for left 5th toe pain Negatives are no headache no head injury no neck pain no back pain no numbness n o weakness no tingling no lacerations no other extremity pains Yes all other systems are reviewed and are negative PMFSH Past Medical History Source: nursing notes reviewed Medical History Abdominal pain Acid reflux Anxiety Barretts esophagus Chronic constipation COPD (chronic obstructive pulmonary disease) CVA (cerebral vascular accident) Depression Dyspnea History of colon polyps Hypertension Internal hemorrhoids Surgical History H/O section History of appendectomy History of cholecystectomy History of esophagogastroduodenoscopy (EGD) Hx of colonoscopy Family History Family History Mother Cancer Maternal Grandmother Cancer Social History Social History Household Members: None Alcohol intake: never Patient Tobacco Use Status: Never used Tobacco Advance Directives: No Advance Directives Information Provided: Yes Patient : No Current occupational status: disabled Physical Exam Vital Signs: Vital Signs: Last Vital Signs Temp 97.8 F 09/18/21 11:32 Pulse 95 09/18/21 11:32 Resp 16 09/18/21 11:32 BP 181/88 H 09/18/21 11:32 Pulse Ox 100 09/18/21 11:32 BMI result Body Mass Index 26.5 General appearance is no acute distress Head is normocephalic atraumatic Neck supple nontender Respiratory no distress The back full range of motion Extremities full range of motion x4 Left foot the left 5th toe has some ecchymosis some mild swelling and tenderness, skin is intact and neurovascular intact Neuro she is A&O x3, interaction both comprehension and expression are normal, no focal motor or sensory deficit Course Course Course Narrative: X-ray did not show any broken bone in the toe but as patient was uncomfortable she is given ambrose tape in a postop shoe and was discharged ambulating with a mild limp without assistance Discharge Plan Discharge Clinical Impression: Contusion of fifth toe Patient Disposition: Home, Self-Care Additional Instructions: X-ray did not show any broken bone in the foot or ankle For comfort we gave you the postop shoe and taped it to the next toe As you get more comfortable you can discard the shoe and can take off the tape any time If pain continues follow with senior account executive or orthopedist Return any time any worse condition or any concerns Prescriptions: No Action pantoprazole 40 mg tablet,delayed release (DR/EC) 40 mg PO DAILY Qty: 90 3RF famotidine 40 mg tablet 40 mg PO BEDTIME Qty: 30 1RF quetiapine 25 mg tablet 1 tab PO DAILY 0RF Rx Instructions: am acetaminophen 500 mg tablet 1 - 2 tab PO BID PRN (Reason: headache) 0RF fluticasone propion-salmeterol [Advair Diskus] 500-50 mcg/dose blister with device 1 puff inhalation Q12H 0RF quetiapine 100 mg tablet 400 mg PO BEDTIME 0RF clopidogrel 75 mg tablet 75 mg PO DAILY 0RF atorvastatin 40 mg tablet 40 mg PO DAILY 0RF hydrochlorothiazide 25 mg tablet 25 mg PO DAILY 0RF citalopram [Celexa] 20 mg tablet 20 mg PO DAILY 0RF haloperidol 1 mg tablet 0 mg PO 0RF bupropion HCl 300 mg tablet extended release 24 hr 300 mg PO QAM 0RF mirtazapine 45 mg tablet 45 mg PO BEDTIME 0RF gabapentin 600 mg tablet 600 mg PO 0RF Referrals: Josue Cavazos MD [Physician] - 1 week Lazaro Godinez DPM [Physician] - 10 days (Toe injury)
--- NOTE | 2021-09-18 14:16 | PC.NURSE ---
1300- PROVIDER EVALUATED PATIENT AND REVIEWED XRAYS. PLAN IS FOR DC HOME WITH POST OP SHOE FOR COMFORT. PT EDUCATED ON ORTHOPEDIC DEVICE WITH POSITIVE TEACHBACK. +CMS. AMBULATORY, GAIT STEADY. PLAN IS FOR DC HOME AND PATIENT AGREEABLE
== END 2021-09-18 13:05 | disposition home or self-care (01) ==
PROVIDERS: Emergency Provider Emergency Medicine; PCP Internal Medicine
DX: S90.122A Contusion of left lesser toe(s) without damage to nail, initial encounter (principal); W01.0XXA Fall on same level from slipping, tripping and stumbling without subsequent striking against object, initial encounter; Y93.9 Activity, unspecified; Y92.039 Unspecified place in apartment as the place of occurrence of the external cause; Y99.9 Unspecified external cause status
CPT/HCPCS: 73610; 73630; 99283

== ENCOUNTER → 2021-11-16 20:34 | Outpatient (REF) | payer MEDICAID, SELFPAY | LOC: HO.SL 20:34 | PROVIDERS: Visit Provider Internal Medicine | DX: R06.83 Snoring (principal); R06.00 Dyspnea, unspecified; G47.8 Other sleep disorders; G47.9 Sleep disorder, unspecified | CPT/HCPCS: 95810 ==

== ENCOUNTER 2021-12-22 11:37 | Outpatient (REF) | payer MEDICAID, SELFPAY ==
--- NOTE | ~2021-12-22 | MM_ITS ---
EXAMINATION: MM SCREENING DIGITAL BREAST TOMOSYNTHESIS, BILATERAL CLINICAL INFORMATION: Screening. Asymptomatic. The lifetime risk of breast cancer based on the Tyrer-Cuzick Model is 12%. COMPARISON: Outside breast imaging from [facility]: Mammography 11/04/2017, 11/15/2017, bilateral targeted breast ultrasound 11/15/2017. TECHNIQUE: Digital breast tomosynthesis is performed in both the craniocaudal and mediolateral oblique views along with computer-aided detection (CAD). Synthesized 2D images are generated from the tomosynthesis. FINDINGS: There are scattered areas of fibroglandular density (ACR BI-RADS breast composition Category b). There is fine fibronodular parenchymal pattern similar to prior study. Bilateral dominant nodularity are decreased. No interval significant mass, architectural abnormality, or abnormal calcifications. The axilla and skin contours are unremarkable. Right breast has small nodule approximately 0.5 cm central 12:00 position, previously measuring 0.9 cm. Left breast has benign calcified nodule anterior central breast 0.8 cm, previously 1.1 cm. A dominant mass mid central left breast has interval biopsy clip marker, scattered peripheral benign calcifications, and is decreased in size, approximately 1.1 cm compared with prior measurement 1.6 cm. There was a 0.8 cm nodule mid outer left breast, currently 0.5 cm. MM/MM tomosynthesis screening BI IMPRESSION: -No mammographic evidence of malignancy. -Bilateral dominant nodularity decreased when compared with outside exam 2018. ASSESSMENT: BI-RADS 2: Benign RECOMMENDATION: Routine annual mammography screening. This patient's information was entered into a reminder system with a target due date for their next mammogram.
== END 2021-12-22 11:38 | disposition home or self-care (01) ==
LOC: HO.MAMMO 11:37
PROVIDERS: Visit Provider Internal Medicine
DX: Z12.31 Encounter for screening mammogram for malignant neoplasm of breast (principal)
CPT/HCPCS: 77063; 77067

== ENCOUNTER → 2022-04-30 11:06 | Outpatient (BNVA) | payer MEDICAID, SELFPAY | PROVIDERS: PCP Internal Medicine; Visit Provider Internal Medicine Pulmonary Disease | DX: J44.9 Chronic obstructive pulmonary disease, unspecified (principal); R06.00 Dyspnea, unspecified; G47.34 Idiopathic sleep related nonobstructive alveolar hypoventilation; R91.8 Other nonspecific abnormal finding of lung field; Z87.891 Personal history of nicotine dependence | CPT/HCPCS: 99202 ==

== ENCOUNTER 2022-05-28 16:42 | Outpatient (REF) | payer MEDICAID, SELFPAY ==
--- NOTE | ~2022-05-28 | CT_ITS ---
EXAMINATION: CT CHEST WITHOUT CONTRAST CLINICAL INFORMATION: Follow-up pulmonary nodule COMPARISON: Previous chest x-ray March [address] and abdominal [address] February 2019 TECHNIQUE: Axial images through the chest without contrast. Sagittal and coronal reconstructions on the technologist workstation. This CT examination was performed using dose optimization techniques as appropriate, variously including the following: *Automated exposure control *Adjustment of mA and/or kV according to patient size (this includes techniques or standardized protocols for targeted exams where dose is matched to indication/reason for exam; i.e. extremities or head) *Use of iterative reconstruction technique DLP: 128 mGy-cm FINDINGS: SENIOR MEDICAL TECHNOLOGIST: Unremarkable LUNGS: There is biapical pleural and parenchymal scarring. There are small areas of increased peribronchial attenuation in the right upper lobe and nodules. The largest is a 5 mm heterogeneous right upper lobe nodule axial image 89 series 5. This may represent airways disease. There is a 2 mm peripheral or subpleural right upper lobe nodule axial image 135 series 5. There is a 3 mm left upper lobe nodule axial image 199 series 5. This is triangular shaped and may represent an intrapulmonary lymph node. There is a 3 mm left lower lobe nodule axial image 223 series 5. There is a 4 mm left lower lobe nodule axial image 220 series 5. There is a 4 mm right middle lobe nodule axial image 269 series 5. This represent bronchial soft tissue opacification. There is scarring or subsegmental atelectasis at the lung bases in both lower lobes, right middle lobe and lingula. There is mild bronchiectasis in the of the right lower lobe. No central endobronchial or endotracheal lesion. MEDIASTINUM: Normal heart size. Trace pericardial effusion or thickening. Normal caliber thoracic aorta. Small mediastinal lymph nodes. No enlarged hilar or mediastinal lymph nodes. CORONARY ARTERY CALCIFICATION: None visualized on this study. PLEURA: There is no pleural effusion. No pleural mass or thickening. AXILLA: No lymphadenopathy. UPPER ABDOMEN: The gallbladder has been removed. OSSEOUS STRUCTURES: Unremarkable. CT/CT chest wo IV con IMPRESSION: Small pulmonary nodules, largest a 5 mm semisolid right upper lobe nodule. This may be related to airways disease. Mild biapical pleural and parenchymal scarring. Scarring or subsegmental atelectasis at the lung bases. According to the UPDATED 2017 Fleischner Society recommendations, the advised follow-up imaging for less than 6 mm solid nodule: Low risk, no chest CT follow-up and high risk, optional chest CT follow-up in one year. Fleischner guidelines were followed.
== END 2022-05-28 16:43 | disposition home or self-care (01) ==
LOC: HO.CT 16:42
PROVIDERS: PCP Internal Medicine; Visit Provider Internal Medicine Pulmonary Disease
DX: R91.8 Other nonspecific abnormal finding of lung field (principal)
CPT/HCPCS: 71250

== ENCOUNTER → 2022-06-01 10:12 | Outpatient (BNVA) | payer MEDICAID, SELFPAY | PROVIDERS: PCP Internal Medicine; Visit Provider Internal Medicine Pulmonary Disease | DX: J44.9 Chronic obstructive pulmonary disease, unspecified (principal); G47.34 Idiopathic sleep related nonobstructive alveolar hypoventilation; R91.8 Other nonspecific abnormal finding of lung field; Z79.899 Other long term (current) drug therapy | CPT/HCPCS: 99212 ==

== ENCOUNTER → 2022-09-02 09:37 | Outpatient (BNVA) | payer MEDICAID, SELFPAY | PROVIDERS: PCP Internal Medicine; Visit Provider Internal Medicine Pulmonary Disease | DX: J44.9 Chronic obstructive pulmonary disease, unspecified (principal); G47.34 Idiopathic sleep related nonobstructive alveolar hypoventilation; R06.09 Other forms of dyspnea | CPT/HCPCS: 94618; 99212 ==

== ENCOUNTER 2022-10-27 13:48 | Outpatient (REF) | payer MEDICAID, SELFPAY ==
--- NOTE | ~2022-10-27 | MR_ITS ---
EXAMINATION: MR LUMBAR SPINE WITHOUT CONTRAST CLINICAL INFORMATION: Chronic bilateral low back pain without sciatica. COMPARISON: None TECHNIQUE: MRI of the lumbar spine was obtained using routine sequences without contrast. FINDINGS: The lumbar vertebral bodies normal alignment. There is chronic superior endplate compression fracture at L5 with 60% height loss centrally. No retropulsion. There is no significant disc height loss. No bone marrow edema is seen. The distal spinal cord appears normal. The conus medullaris terminates normally at the L1-L2 level. The extraspinal soft tissues are within normal limits. SPINAL LEVELS: L1-L2: No posterior disc abnormality. No spinal canal or neural foraminal stenosis. L2-L3: No posterior disc abnormality. No spinal canal or neural foraminal stenosis. L3-L4: No posterior disc abnormality. No spinal canal or neural foraminal stenosis. L4-L5: Minimal disc bulging with mild facet arthropathy. No spinal canal stenosis. Mild narrowing of the bilateral neural foramina. L5-S1: Mild disc bulging with moderate facet arthropathy. No spinal canal stenosis. Mild narrowing of the bilateral neural foramina. MR/MR lumbar spine wo con IMPRESSION: No significant narrowing of the spinal canal or neural foramina. Chronic superior endplate compression fracture at L5.
== END 2022-10-27 13:49 | disposition home or self-care (01) ==
LOC: HO.MRI 13:48
PROVIDERS: PCP Internal Medicine; Visit Provider Internal Medicine
DX: M54.50 Low back pain, unspecified (principal)
CPT/HCPCS: 72148

== ENCOUNTER → 2022-11-29 10:29 | Outpatient (BNVA) | payer MEDICAID, SELFPAY | PROVIDERS: PCP Internal Medicine; Visit Provider Nurse Practitioner Family | DX: M47.817 Spondylosis without myelopathy or radiculopathy, lumbosacral region (principal); M51.36 Other intervertebral disc degeneration, lumbar region; M54.16 Radiculopathy, lumbar region; M25.551 Pain in right hip; M25.552 Pain in left hip | CPT/HCPCS: 99202 ==

== ENCOUNTER 2022-12-14 06:01 | Outpatient (REF) | payer MEDICAID, SELFPAY ==
--- NOTE | ~2022-12-14 | FL_ITS ---
EXAMINATION: XR FLUOROSCOPY WITH IMAGES CLINICAL INFORMATION: Other intervertebral disc degeneration, lumbar region. COMPARISON: None available. TECHNIQUE: Fluoroscopy Supervised By: Dr. Kraft. Fluoroscopy Time: 0.5 min. Cumulative Dose: 14.8 mGy. DAP: 4.03 Gycm2. Images: 6. FINDINGS: Images demonstrate needle placement and contrast injection adjacent to the bilateral lateral L3, L4 and L5 vertebral bodies. FL/FL guidance in treatment room IMPRESSION: Fluoroscopy guidance for pain management procedure.
== END 2022-12-14 06:02 | disposition home or self-care (01) ==
LOC: CF 06:01
PROVIDERS: Visit Provider Anesthesiology
DX: M51.36 Other intervertebral disc degeneration, lumbar region (principal); M47.817 Spondylosis without myelopathy or radiculopathy, lumbosacral region; M54.16 Radiculopathy, lumbar region; M25.551 Pain in right hip; M25.552 Pain in left hip
CPT/HCPCS: 64493; 64494; J3301

== ENCOUNTER → 2022-12-24 10:44 | Outpatient (BNVA) | payer MEDICAID, SELFPAY | PROVIDERS: PCP Internal Medicine; Visit Provider Nurse Practitioner Family | DX: M51.36 Other intervertebral disc degeneration, lumbar region (principal); M47.817 Spondylosis without myelopathy or radiculopathy, lumbosacral region; G89.4 Chronic pain syndrome | CPT/HCPCS: 99212 ==

== ENCOUNTER 2023-01-13 12:08 | Outpatient (REF) | payer MEDICAID, SELFPAY ==
--- NOTE | ~2023-01-13 | XR_ITS ---
EXAMINATION: XR SHOULDER, LEFT CLINICAL INFORMATION: Patient fell 3 months ago injuring left shoulder with persistent pain. COMPARISON: None available. TECHNIQUE: AP external rotation, Grashey, scapular Y, and axillary views of the left shoulder. FINDINGS: There is deformity about the superior lateral aspect of the left humeral head in the region of greater tuberosity with the appearance on a Hill-Sachs compression fracture with some sclerotic margins. No definite findings of an acute fracture or dislocation is evident. Glenohumeral joint space is maintained. There is some mild degenerative narrowing and spurring about the acromioclavicular joint. No widening of the coracoclavicular space is seen. XR/XR shoulder LT min 2V IMPRESSION: Evidence for previous fracture with appearance of a Hill-Sachs deformity left humeral head.
== END 2023-01-13 12:09 | disposition home or self-care (01) ==
LOC: HO.HHCX 12:08
PROVIDERS: Visit Provider Internal Medicine
DX: M25.512 Pain in left shoulder (principal); G89.29 Other chronic pain
CPT/HCPCS: 73030

== ENCOUNTER 2023-01-13 13:03 | Outpatient (REF) | payer MEDICAID, SELFPAY ==
[2023-01-13 16:54] LABS: Alanine Aminotransferase 13 U/L (0-31); Albumin Level 4.4 g/dL (3.5-5.0); Alkaline Phosphatase 144 U/L (39-117); Anion Gap 12 (12-20); Aspartate Amino Transferase 14 U/L (5-31); Bilirubin Direct 0.1 mg/dL (0.0-0.5); Bilirubin Total 0.3 mg/dL (0.0-1.0); Blood Urea Nitrogen 14 mg/dL (9-16); Calcium 9.6 mg/dL (8.4-10.2); Carbon Dioxide 29 mmol/L (22-29); Chloride 104 mmol/L (96-108); Estimated Glomerular Filt Rate 51; Glucose Random 97 mg/dL (60-115); Potassium 3.7 mmol/L (3.3-5.1); Sodium 141 mmol/L (135-145); Total Protein 7.4 g/dL (6.5-8.0)
[2023-01-13 17:20] LABS: Folate 12.2 ng/mL (> or = 4.0); Vitamin B12 716 pg/mL (200-900)
== END 2023-01-13 13:04 | disposition home or self-care (01) ==
LOC: HO.HHCL 13:03
PROVIDERS: Visit Provider Internal Medicine
DX: G57.93 Unspecified mononeuropathy of bilateral lower limbs (principal); I10 Essential (primary) hypertension; I16.1 Hypertensive emergency
CPT/HCPCS: 36415; 80048; 80076; 82607; 82746

== ENCOUNTER 2023-01-20 09:54 | Outpatient (AMB) | payer MEDICAID, SELFPAY ==
[2023-01-20 10:02] VITALS: BP 120/66; PULSE 94; O2SAT 96; BMI 34.9
--- NOTE | 2023-01-20 10:02 | MHC.OFFVIS ---
Intake Vital Signs 01/20/23 10:02 Height 5 ft 2 in Weight 190 lb 11.198 oz BMI 34.9 BP 120/66 Blood Pressure Location Rt brachial Position Sitting Pulse 94 Pulse Source Pulse Oximeter Pulse Oximetry (%) 96 Oxygen Delivery Method Room Air Intake Visit Reasons: asthma Intake Note: Pt reports still feeling shortness of breath on exertion and a dry cough but denies wheezing. Street Sweeper Operator Required: Yes Allergies No Known Allergies [No Known Allergies*] Allergy (Verified 01/20/23 10:07) HPI asthma HPI Details 62-year-old lady, former 60 pack year smoker, quit 12 years prior, with underlying history of diastolic heart failure, recent normal sleep study, now followed for nocturnal hypoxemia and COPD.? She has been using Anoro and albuterol MDI with reasonable control her symptoms until recently when she started developed orthopnea, lower extremity edema, and dyspnea on exertion. She has been recently also hospitalized at [facility] for 3 days for supposed pneumonia. FOR[facility]LY [facility] Medical History Abdominal pain Acid reflux Anxiety Barretts esophagus Chronic constipation COPD (chronic obstructive pulmonary disease) CVA (cerebral vascular accident) Depression Dyspnea History of colon polyps Hypertension Internal hemorrhoids Surgical History H/O section History of appendectomy History of cholecystectomy History of esophagogastroduodenoscopy (EGD) Hx of colonoscopy Family History Mother Cancer Maternal Grandmother Cancer Social History Household Members: None Alcohol intake: never Patient Tobacco Use Status: Never used Tobacco Current occupational status: disabled Review of Systems Const Denies daytime sleepiness, Denies excessive sweating, Denies fatigue, Denies fever(s), Denies lethargy, Denies malaise, Denies night sweats, Denies snoring and Denies weight loss Eyes Denies blurry vision and Denies itchy eyes ENT Denies nasal congestion, Denies post nasal drip, Denies sinus pain, Denies sinus pressure and Denies other ( Thrush) Card Denies chest pain, Denies pedal edema, Reports leg edema, Denies dyspnea, Reports dyspnea on exertion, Reports orthopnea and Reports paroxysmal nocturnal dyspnea Resp Denies cough, Denies hemoptysis, Denies excessive phlegm production, Denies dyspnea, Reports dyspnea on exertion, Denies snoring and Denies wheezing GI Denies abdominal pain and Denies heartburn Musc Denies myalgias, Denies arthralgias and Denies joint swelling Skin/Breast Denies rash Neuro Denies memory loss and Denies seizure-like activity Psych Denies abnormal sleep pattern, Denies anxiety and Denies memory loss Endo Denies excessive sweating, Denies fatigue and Denies heat intolerance Zhen/Lymph Denies easy bruising Aller/Immun Denies itchy eyes, Denies seasonal rhinorrhea and Denies wheezing Physical Exam Vital Signs: Last Vital Signs Pulse 94 01/20/23 10:02 BP 120/66 01/20/23 10:02 Pulse Ox 96 01/20/23 10:02 Oxygen Delivery Method Room Air 01/20/23 10:02 BMI result Body Mass Index 34.9 Const General: no acute distress and alert Nutritional Appearance: not obese Orientation/consciousness: Other orientation findings ( oriented) HEENT Head: Yes atraumatic Eyes General: appearance normal, both eyes and all related structures Sclerae: sclerae normal EOM: EOMs intact bilaterally Neck Neck: Yes supple Lymphatic: no lymphadenopathy noted Resp Effort & Inspection: normal respiratory effort and no use of accessory muscles Auscultation: clear to auscultation bilaterally Cardio Rate: regular rate Rhythm: regular rhythm Heart sounds: no gallops, no murmurs and no rubs Skin General skin exam: other ( warm) Extrem General: No clubbing, No cyanosis and Yes edema (1+ bilateral) Assessment & Plan Assessment & Plan (1) COPD (chronic obstructive pulmonary disease): Code(s): J44.9 - Chronic obstructive pulmonary disease, unspecified Plan: Baseline controlled on Anoro and albuterol MDI. Continue current regimen. (2) Nocturnal hypoxemia: Code(s): G47.34 - Idiopathic sleep related nonobstructive alveolar hypoventilation Plan: Continues on nocturnal supplemental oxygen. (3) Pulmonary nodules: Code(s): R91.8 - Other nonspecific abnormal finding of lung field Plan: Underlying heart mm and under pulmonary nodules. Follow-up CT chest ordered for May of 2023. (4) Dyspnea on exertion: Code(s): R06.09 - Other forms of dyspnea Plan: Now with worsening orthopnea, lower extremity edema, and dyspnea on exertion. Appears to be in exacerbation of underlying diastolic congestive heart failure. Will double her diuretic at this time to Lasix 40 mg daily. Orders: Orders CT chest wo IV con 06/15/23 R91.8 - Other nonspecific abnormal finding of lung field Medications: New furosemide 40 mg PO DAILY 30 tabs 0RF 30 days Discontinued famotidine Discontinued Reason: Doctor's Order 40 mg PO BEDTIME 30 tabs 1RF Coding Level of Care Code Est Pt Level 4 (96323) Diagnoses COPD (chronic obstructive pulmonary disease) J44.9 Nocturnal hypoxemia G47.34 Pulmonary nodules R91.8 Dyspnea on exertion R06.09
== END 2023-01-20 10:30 | disposition home or self-care (01) ==
PROVIDERS: PCP Internal Medicine; Visit Provider Internal Medicine Pulmonary Disease
DX: J44.9 Chronic obstructive pulmonary disease, unspecified (principal); G47.34 Idiopathic sleep related nonobstructive alveolar hypoventilation; R91.8 Other nonspecific abnormal finding of lung field; R06.09 Other forms of dyspnea
CPT/HCPCS: 99214

== ENCOUNTER → 2023-01-20 09:54 | Outpatient (BNVA) | payer MEDICAID, SELFPAY | PROVIDERS: PCP Internal Medicine; Visit Provider Internal Medicine Pulmonary Disease | DX: J44.9 Chronic obstructive pulmonary disease, unspecified (principal); G47.34 Idiopathic sleep related nonobstructive alveolar hypoventilation; R91.8 Other nonspecific abnormal finding of lung field; R06.09 Other forms of dyspnea | CPT/HCPCS: 99212 ==

== ENCOUNTER 2023-01-26 09:04 | Outpatient (AMB) | payer MEDICAID, SELFPAY ==
--- NOTE | 2023-01-26 09:15 | A.OFFVIS_ITS ---
Intake Vital Signs 01/26/23 09:21 Height 5 ft 2 in Weight 191 lb BMI 34.9 BP 124/74 Blood Pressure Location Lt brachial Position Sitting Pulse 74 Intake Visit Reasons: discuss egd repeat per ashley Doty Note: Patient follow up to discuss Marva [facility] interpeter. . Patient cc: acid reflex , denies any other GI issues. Electromechanisms Design Drafter Required: Yes Electromechanisms Design Drafter Name: Marva [facility] interpeer Accompanied by: Self / Same As Patient Allergies No Known Allergies [No Known Allergies*] Allergy (Verified 01/26/23 09:15) Medication List - Last Reconciled 01/26/23 by Ashley Marie PA-C albuterol sulfate 90 mcg/actuation (Proventil HFA) puffs inhalation QID PRN atorvastatin 40 mg PO DAILY betamethasone valerate 0.1% topical bupropion HCl 300 mg PO QAM citalopram (Celexa) 20 mg PO DAILY clopidogrel 75 mg PO DAILY docusate sodium 100 mg PO furosemide 20 mg PO QAM furosemide 40 mg PO DAILY 30 days gabapentin 600 mg PO haloperidol 0 mg PO hydrochlorothiazide 25 mg PO DAILY ibuprofen 600 mg PO Q8H PRN lidocaine 5% 0 patches topical lisinopril 10 mg PO QAM lorazepam 0.5 mg PO Q8H PRN meloxicam 15 mg PO QAM mirtazapine 60 mg PO BEDTIME pantoprazole 40 mg PO DAILY quetiapine 400 mg PO BEDTIME risperidone 3 mg PO BEDTIME umeclidinium-vilanterol 62.5-25 mcg/actuation (Anoro Ellipta) 1 ea inhalation DAILY venlafaxine ER 75 mg PO QAM verapamil ER 120 mg PO QAM HPI HPI Comments History of Present Illness Details A 62 y/o F- Barretts- here with persistent acid reflux- gained wt-night time acid reflux- taking ppi bid She only eats once daily- at dinner -says that when her son eats with her Should not had any issues with her bowels She has no nausea, vomiting hematemesis, hematochezia fever or chills Last EGD 08/2020- Last colonoscopy 2017--adenoma PFSH Medical History (Updated 12/26/22 @ 13:25 by ANGELIC Simmons) Abdominal pain Acid reflux Anxiety Barretts esophagus Chronic constipation COPD (chronic obstructive pulmonary disease) CVA (cerebral vascular accident) Depression Dyspnea History of colon polyps Hypertension Internal hemorrhoids Surgical History H/O section History of appendectomy History of cholecystectomy History of esophagogastroduodenoscopy (EGD) Hx of colonoscopy Family History Mother Cancer Maternal Grandmother Cancer Social History Household Members: None Alcohol intake: never Patient Tobacco Use Status: Never used Tobacco Current occupational status: disabled Review of Systems Const All systems reviewed & are unremarkable except as noted in HPI and below Card Denies chest pain and Denies dyspnea Resp Denies dyspnea GI Denies abdominal pain, Denies change in bowel habits, Reports heartburn, Denies nausea and Denies vomiting Musc Reports abnormal gait Neuro Reports abnormal gait Physical Exam Const General: cooperative, healthy appearing, comfortable, no acute distress and well groomed Orientation/consciousness: patient oriented x3 Limitations: language barrier, physical limitations and ambulation with cane Eyes Sclerae: sclerae normal Resp Effort & Inspection: normal respiratory effort and able to speak in complete sentences Auscultation: clear to auscultation bilaterally Cardio Rate: regular rate Rhythm: regular rhythm Heart sounds: S1 normal heart sound present and S2 normal heart sound present GI Palpation (GI): Soft to palpation and nontender Auscultation: normal bowel sounds Skin General skin exam: no rashes or lesions noted Neuro General: patient oriented x3 Extrem General: Yes full ROM and Yes no clubbing, cyanosis or edema Psych Appearance: grossly normal and well kempt Mental Status: mental status grossly normal Speech and movement: Clear speech present Affect: Labile affect present Attitude: cooperative Thought content: Normal thought content present Results Reviewed Results Reviewed: Collected: 09/04/20 Location: [facility] Received: 09/04/20 Diagnosis GE junction, biopsy: - Cárdenas esophagus with background moderate chronic inactive inflammation. - No dysplasia seen. - Squamous mucosa within normal limits. COMMENT:? Multiple additional levels are examined. Clinical History Pre-Op Dx:? Reflux disease, Cárdenas's esophagus Post-Op Dx: Hiatal hernia, Cárdenas's esophagus Colonoscopy- adenoma 2018- Assessment & Plan Assessment & Plan (1) History of colon polyps: Comment: 2018 adenoma Code(s): Z86.010 - Personal history of colonic polyps (2) Barretts esophagus: Comment: 59-year-old female history of Cárdenas's follows up after recent EGD. Discussed procedure as well as pathology results Repeat EGD 2-3 years- Code(s): K22.70 - Cárdenas's esophagus without dysplasia (3) Acid reflux: Comment: Worsening acid reflux -needs refill on PPI will increase to b.i.d., omeprazole 20 mg b.i.d.. Avoid culprits. Code(s): K21.9 - Gastro-esophageal reflux disease without esophagitis Plan EGD and colonoscopy Dr. Kiser- D/C plavix 7 days prior to procedures ( ordered by pcp) Orders: Orders EGD/[place] Combo - GI Use Only Today K22.70 - Cárdenas's esophagus without dysplasia, Z86.010 - Personal history of colonic polyps Medications: New famotidine 40 mg PO BEDTIME 30 days 30 tabs 5RF peg-electrolyte soln 420 gram Start at 6:00pm the evening before procedure, drink one 8oz glass every 15 minutes until complete 240 mL PO ONCE 1 day PRN 4,000 mL 0RF laxative effect Patient Instructions: Very pleasant 62-year-old female s/p CVA- clopidogrel, with persistent acid refl ux-discuss lifestyle dietary changes Reflux precautions reviewed Eat small portions throughout the day as opposed to 1 large meal at night Continue PPI daily as well will add famotidine 40 mg at bedtime Due for polyp surveillance colonoscopy as well as EGD for Cárdenas's surveillance will schedule Prep sent to pharmacy She will call me with any worsening symptoms Coding Level of Care Code Est Pt Level 4 (33396) Diagnoses History of colon polyps Z86.010 Barretts esophagus K22.70 Acid reflux K21.9 Time Spent (min) 30 Comment Electromechanisms Design Drafter, Marva
[2023-01-26 09:21] VITALS: BP 124/74; PULSE 74; BMI 34.9
== END 2023-01-26 10:29 | disposition home or self-care (01) ==
PROVIDERS: PCP Internal Medicine; Visit Provider Physician Assistant
DX: Z86.010 Personal history of colon polyps (principal); K22.70 Barrett's esophagus without dysplasia; K21.9 Gastro-esophageal reflux disease without esophagitis
CPT/HCPCS: 99214

== ENCOUNTER → 2023-01-26 09:04 | Outpatient (BNVA) | payer MEDICAID, SELFPAY | PROVIDERS: PCP Internal Medicine; Visit Provider Physician Assistant | DX: K22.70 Barrett's esophagus without dysplasia (principal); K21.9 Gastro-esophageal reflux disease without esophagitis; Z86.010 Personal history of colon polyps | CPT/HCPCS: 99214 ==

== ENCOUNTER 2023-02-04 12:39 | Outpatient (REF) | payer MEDICAID, SELFPAY ==
[2023-02-04 17:01] LABS: Anion Gap 12 (12-20); Blood Urea Nitrogen 12 mg/dL (9-16); Calcium 9.5 mg/dL (8.4-10.2); Carbon Dioxide 29 mmol/L (22-29); Chloride 106 mmol/L (96-108); Estimated Glomerular Filt Rate 43; Glucose Random 87 mg/dL (60-115); Potassium 4.6 mmol/L (3.3-5.1); Sodium 142 mmol/L (135-145)
== END 2023-02-04 12:40 | disposition home or self-care (01) ==
LOC: HO.HHCL 12:39
PROVIDERS: Visit Provider Internal Medicine
DX: R42 Dizziness and giddiness (principal)
CPT/HCPCS: 36415; 80048

== ENCOUNTER 2023-02-09 08:00 | Outpatient (AMB) | payer MEDICAID, SELFPAY ==
--- NOTE | 2023-02-09 08:11 | A.OFFVIS_ITS ---
Intake Vital Signs 02/09/23 08:12 Height 5 ft 2 in Weight 191 lb BMI 34.9 Intake Visit Reasons: fc- Fracture dislocation of left shoulder joint Intake Note: Royer 62 year old right hand dominant male who presents today as a new patient for an evaluation of left shoulder s/p fall. Patient reports fall about 3 months, she was seen by PCP who ordered xrays and referred to orthopedics. Wagner has constatn pain that radiates down to her elbow. Denies numbness or tingling. No relief with Tylenol or Motrin. Allergies No Known Allergies [No Known Allergies*] Allergy (Verified 02/09/23 08:12) HPI fc- Fracture dislocation of left shoulder joint HPI Details 62-year-old right hand dominant female who presents to the office today with an client project coordinator for evaluation of left shoulder injury s/p fall, about 3 months ago. She was seen by her PCP where x-rays were performed and she was referred to our office. She states she has constant pain in his shoulder which radiates down to her elbow. She denies any numbness or tingling and has not had any physical therapy in the past. [facility] Medical History Abdominal pain Acid reflux Anxiety Barretts esophagus Chronic constipation COPD (chronic obstructive pulmonary disease) CVA (cerebral vascular accident) Depression Dyspnea History of colon polyps Hypertension Internal hemorrhoids Surgical History H/O section History of appendectomy History of cholecystectomy History of esophagogastroduodenoscopy (EGD) Hx of colonoscopy Family History Mother Cancer Maternal Grandmother Cancer Social History Household Members: None Alcohol intake: never Patient Tobacco Use Status: Never used Tobacco Current occupational status: disabled Review of Systems Const All systems reviewed & are unremarkable except as noted in HPI and below Physical Exam Vital Signs: BMI result Body Mass Index 34.9 Const General: cooperative, healthy appearing, comfortable, no acute distress, well developed and alert Orientation/consciousness: patient oriented x3 HEENT Head: Yes normal to inspection, Yes normocephalic and Yes atraumatic Eyes General: appearance normal, both eyes and all related structures Resp Effort & Inspection: normal respiratory effort and able to speak in complete sentences Cardio Rate: regular rate Peripheral pulses: Peripheral pulses 2+ throughout GI Palpation (GI): Soft to palpation Skin Lesions: no lesions Rashes: no rashes Neuro General: patient oriented x3 Extrem Other: Left shoulder: Normal to inspection. She does have tenderness over the greater tuberosity. Forward flexion to 90 degrees, external rotation to 45 degrees, internal rotation limited to back pocket. She is able to activate the RTC strength on testing however she has significant discomfort with this. NVI. Office Procedures Fracture Care Fracture Billing Code: Fracture Billing Code Results Reviewed Results Reviewed: X-rays of the left shoulder obtained in the office today show interval healing through the greater tuberosity without displacement. Assessment & Plan Assessment & Plan (1) Fracture of greater tuberosity of left humerus: Code(s): S42.252A - Displaced fracture of greater tuberosity of left humerus, initial encounter for closed fracture (2) Injury of left rotator cuff: Code(s): S46.002A - Unspecified injury of muscle(s) and tendon(s) of the rotator cuff of left shoulder, initial encounter Plan I discussed the extent of the injury to the patient and recommended a course of physical therapy to work on ROM, periscapular stabilization and gentle RTC strength testing. I would like to see her back 4-6 in weeks with new x-rays, sooner if needed. Orders: Orders XR shoulder LT min 2V Today M25.512 - Pain in left shoulder PT Evaluation and Treatment Today S42.252A - Displaced fracture of greater tuberosity of left humerus, initial encounter for closed fracture, S46.002A - Unspecified injury of muscle(s) and tendon(s) of the rotator cuff of left shoulder, initial encounter Patient Instructions: Scribed for Nani Martinez PA-C, by Jose Miguel Prado rn medical surgical, on 02/09/2023 at 8:30 AM EST. Nani Julien PA-C, have personally reviewed and agree with the information entered by the scribe. Coding Level of Care Code New Pt Level 3 (48798) Diagnoses Fracture of greater tuberosity of left humerus S42.252A Injury of left rotator cuff S46.002A CPT Codes Fracture Care - Fracture Billing Code: Fracture Billing Code ([id number])
[2023-02-09 08:12] VITALS: BMI 34.9
== END 2023-02-09 09:25 | disposition home or self-care (01) ==
PROVIDERS: PCP Internal Medicine; Visit Provider Physician Assistant
DX: S42.255A Nondisplaced fracture of greater tuberosity of left humerus, initial encounter for closed fracture (principal); S46.002A Unspecified injury of muscle(s) and tendon(s) of the rotator cuff of left shoulder, initial encounter
CPT/HCPCS: 99203

== ENCOUNTER 2023-02-09 08:00 | Outpatient (REF) | payer MEDICAID, SELFPAY ==
--- NOTE | ~2023-02-09 | XR_ITS ---
EXAMINATION: XR SHOULDER, LEFT CLINICAL INFORMATION: Left shoulder pain COMPARISON: None available. TECHNIQUE: AP external rotation, Grashey, scapular Y, and axillary views of the left shoulder. FINDINGS: Redemonstration of deformity with sclerotic margins along the superior lateral aspect of the left humeral head in the region of the greater tuberosity concerning for a Hill-Sachs compression fracture. Glenohumeral alignment is maintained. Mild degenerative changes in the acromioclavicular joint. XR/XR shoulder LT min 2V IMPRESSION: Redemonstration of deformity with sclerotic margins along the superior lateral aspect of the left humeral head in the region of the greater tuberosity concerning for a Hill-Sachs compression fracture. Additional imaging with CT scan or MRI should be considered for better visualization as these modalities are much more sensitive for detection of fracture or other underlying pathology.
== END 2023-02-09 08:01 | disposition home or self-care (01) ==
LOC: HO.HOSX 08:00
PROVIDERS: PCP Internal Medicine; Visit Provider Physician Assistant
DX: S42.252A Displaced fracture of greater tuberosity of left humerus, initial encounter for closed fracture (principal); S46.002A Unspecified injury of muscle(s) and tendon(s) of the rotator cuff of left shoulder, initial encounter
CPT/HCPCS: 73030; 99203

== ENCOUNTER 2023-02-10 12:35 | Day surgery (SDC) | payer MEDICAID, SELFPAY ==
--- NOTE | ~2023-02-10 | FL_ITS ---
EXAMINATION: XR FLUOROSCOPY WITH IMAGES CLINICAL INFORMATION: L3 medial branch SPRINT (possible L4, possible L5, possible S1. COMPARISON: None available. TECHNIQUE: Fluoroscopy Supervised By: Dr. Kavon Kraft. Fluoroscopy Time: 0.1 minute. Cumulative Dose: 6.57 mGy. DAP: 0.111 Gycm2. Images: 2. FINDINGS: Images demonstrate marker placement over the left lateral L3 and L4 vertebrae and wire over the left L3 L4 and L5 vertebrae. FL/FL guidance in OR IMPRESSION: Fluoroscopic guidance for pain management procedure.
[2023-02-10 13:18] VITALS: BMI 35.3
--- NOTE | 2023-02-10 14:13 | MHC.SHP ---
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 Relevant Family History (Specify if Yes): No Relevant Social History: None Present Medications: None Medical History: No relevant PMH History of Previous Operations: No relevant previous surgery Allergies: Allergies Allergy/AdvReac Type Severity Reaction Status Date / Time No Known Allergies Allergy Verified 02/09/23 08:12 [No Known Allergies*] Review of Systems Sugical H&P ROS: Negative: Constitution, Cardiovascular, Respiratory, Neurological, Psychiatric, Hem-Onc, Allergic/Immunologic, Gastrointestinal, Genitourinary, Musculoskeletal, Integumentary, Endocrine and Eyes/Ears/Nose/Throat Exam Surgical H&P Exam: Normal: HEENT, Normal: Heart, Normal: Lungs, Normal: Extremities, Normal: Abdomen, Normal: Skin and Normal: Neurological Plan Diagnosis/Plan: Unchanged I have reviewed the history and physical and performed a pertinent physical examination on my patient. I will perform left sided PNS SPRINT L3, possible L4, possible L5. Time Spent With Patient Time: Total time managing care of this patient today ___5_ minutes.
--- NOTE | 2023-02-10 15:14 | PM.OP ---
Brief Operative Note Date of Service: 02/10/23 Pre-op diagnosis: spondylosis lumbar Post-op diagnosis: same Procedure: SPRINT PNS L$ Implants: none permanebt Surgeon: Kavon Kraft MD Anesthesia: local Was an Student Development Coordinator used for this Procedure?: No Estimated blood loss (mL): 0 Condition: stable Disposition: PACU
--- NOTE | 2023-02-10 15:15 | W.PM.OPN ---
Operative Note Operative Note Date of Service: 02/10/23 Narrative: Percutaneous implantation of peripheral nerve stimulation Sprint system L4 left side. After the risks, benefits and alternatives were discussed with the patient and informed consent was obtained, patient was placed in the prone position and padded to foster comfort. Time out was performed delineating correct site and side of the procedure , name and of the patient, patient participated in time out procedure. Sterily draped C-arm was brought over the operating field and clear picture of the L4 lamina on theleftwas delineated on the screen. The upper central portion of the lamina was chosen as a target of the needle tip insertion . After identifying and marking the intended target, the skin around the planned entry point and the subcutaneous tissues were injected with local anesthetic forming skin wheal.. A percutaneous sleeve and stimulating probe lead introduction system were assembled, inserted and advanced through the skin wheal to the point of interest under C-arm viewat 45 degree level toL4 right lamina., the introducer needle was delivered to a location in proximity to the nerve. Multiple stimulation parameters were used to deliver stimulation to the nerve in concert with stimulating at multiple positions around the nerve. The nerve target acquisition was confirmed noting generation of in the corresponding to the nerve being stimulated. Various electrical parameter combinations were tested, and the lead location was adjusted (physically relocated) until the patient indicated overlapping the distribution of the patient?s typical region of pain. The stimulating probe was removed from the introducer and a percutaneous lead was guided through the needle and delivered to a location in similar proximity to the nerve. Final location was verified with electrical stimulation. The introducer needle was removed, and the exposed end of the percutaneous lead was attached to an external stimulator unit. At the end of the case various electrical parameter combinations were again tested until the patient indicated paresthesia or muscle tension overlapping the distribution of the patient?s typical region of pain. After confirming that lead impedance was in the normal range, the external unit was detached, the needle was removed, and the lead was anchored at the skin. The lead was threaded into the connector block and electrical continuity and desired patient response was confirmed. The connector block was attached to the external stimulator unit. The site was covered with a sterile occlusive dressing and a image was taken to document final placement. Upon completion of the procedure the patient was taken outside the OR where she recovered uneventfully she went home without immediate complications.
[2023-02-10 15:21] VITALS: BP 147/79; PULSE 85; RESP 16; TEMP 37.1; O2SAT 96
== END 2023-02-10 16:31 | disposition home or self-care (01) ==
PROVIDERS: PCP Internal Medicine; Visit Provider Anesthesiology
PROC: (CPT 64555; principal; 2023-02-10 14:10)
DX: M47.817 Spondylosis without myelopathy or radiculopathy, lumbosacral region (principal); G89.4 Chronic pain syndrome; M51.36 Other intervertebral disc degeneration, lumbar region; M54.50 Low back pain, unspecified; I10 Essential (primary) hypertension; J44.9 Chronic obstructive pulmonary disease, unspecified; Z86.73 Personal history of transient ischemic attack (TIA), and cerebral infarction without residual deficits; Z98.890 Other specified postprocedural states
CPT/HCPCS: 64555; C1778; J2795

== ENCOUNTER → 2023-02-10 12:35 | Outpatient (BNV) | payer MEDICAID, SELFPAY | PROVIDERS: PCP Internal Medicine; Visit Provider Anesthesiology | DX: M47.817 Spondylosis without myelopathy or radiculopathy, lumbosacral region (principal) | CPT/HCPCS: 64555 ==

== ENCOUNTER → 2023-02-18 10:41 | Outpatient (BNVA) | payer MEDICAID, SELFPAY | PROVIDERS: PCP Internal Medicine; Visit Provider Anesthesiology ==

== ENCOUNTER 2023-02-24 12:17 | Day surgery (SDC) | payer MEDICAID, SELFPAY ==
--- NOTE | ~2023-02-24 | FL_ITS ---
EXAMINATION: XR FLUOROSCOPY WITH IMAGES CLINICAL INFORMATION: L3 MB. COMPARISON: None available. TECHNIQUE: Fluoroscopy Supervised By: Dr. Kraft. Fluoroscopy Time: 0.1 minute. Cumulative Dose: 4.27 mGy. DAP: 0.703 Gycm2. Images: 1. FINDINGS: There is a single image of lower lumbar spine revealing a posterior spinal electrode overlying the L4, L3 vertebra. Visualized bones are grossly unremarkable. FL/FL guidance in OR IMPRESSION: Fluoroscopy guidance was provided to referring physician for pain management.
--- NOTE | 2023-02-24 12:59 | MHC.SHP ---
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 Relevant Family History (Specify if Yes): No Relevant Social History: None Present Medications: None Medical History: No relevant PMH History of Previous Operations: No relevant previous surgery Allergies: Allergies Allergy/AdvReac Type Severity Reaction Status Date / Time No Known Allergies Allergy Verified 02/18/23 11:09 [No Known Allergies*] Review of Systems Sugical H&P ROS: Negative: Constitution, Cardiovascular, Respiratory, Neurological, Psychiatric, Hem-Onc, Allergic/Immunologic, Gastrointestinal, Genitourinary, Musculoskeletal, Integumentary, Endocrine and Eyes/Ears/Nose/Throat Exam Surgical H&P Exam: Normal: HEENT, Normal: Heart, Normal: Lungs, Normal: Extremities, Normal: Abdomen, Normal: Skin and Normal: Neurological Plan Diagnosis/Plan: Unchanged I have reviewed the history and physical and performed a pertinent physical examination on my patient. No changes have occurred unless specified. Time Spent With Patient Time: Total time managing care of this patient today ____ minutes.
--- NOTE | 2023-02-24 13:28 | P.OP_ITS ---
Operative Note Operative Note Date of Service: 02/24/23 Narrative: Percutaneous implantation of peripheral nerve stimulation Sprint system L4 right side. After the risks, benefits and alternatives were discussed with the patient and informed consent was obtained, patient was placed in the prone position and padded to foster comfort. Time out was performed delineating correct site and side of the procedure , name and of the patient, patient participated in time out procedure. Sterily draped C-arm was brought over the operating field and clear picture of the L4 lamina on the right was delineated on the screen. The upper central portion of the lamina was chosen as a target of the needle tip insertion . After identifying and marking the intended target, the skin around the planned entry point and the subcutaneous tissues were injected with local anesthetic forming skin wheal.. A percutaneous sleeve and stimulating probe lead introduction system were assembled, inserted and advanced through the skin wheal to the point of intere st under C-arm level to L4 right lamina., the introducer needle was delivered to a location in proximity to the nerve. Multiple stimulation parameters were used to deliver stimulation to the nerve in concert with stimulating at multiple positions around the nerve. The nerve target acquisition was confirmed noting generation of in the corresponding to the nerve being stimulated. Various electrical parameter combinations were tested, and the lead location was adjusted (physically relocated) until the patient indicated overlapping the distribution of the patient?s typical region of pain. The stimulating probe was removed from the introducer and a percutaneous lead was guided through the needle and delivered to a location in similar proximity to the nerve. Final location was verified with electrical stimulation. The introducer needle was removed, and the exposed end of the percutaneous lead was attached to an external stimulator unit. At the end of the case various electrical parameter combinations were again tested until the patient indicated paresthesia or muscle tension overlapping the distribution of the patient?s typical region of pain. After confirming that lead impedance was in the normal range, the external unit was detached, the needle was removed, and the lead was anchored at the skin. The lead was threaded into the connector block and electrical continuity and desired patient response was confirmed. The connector block was attached to the external stimulator unit. The site was covered with a sterile occlusive dressing and a image was taken to document final placement. Upon completion of the procedure the patient was taken outside the OR where she recovered uneventfully she went home without immediate complications.
--- NOTE | 2023-02-24 13:30 | PM.OP ---
Brief Operative Note Date of Service: 02/24/23 Pre-op diagnosis: spondylosis lumbar without myelo/radiculopathy Post-op diagnosis: same Procedure: Sprint PNS L4 to the right Implants: 60 days implant Surgeon: Kavon Kraft MD Anesthesia: local Was an Oncology Admin used for this Procedure?: No Estimated blood loss (mL): 1 Condition: stable Disposition: PACU
[2023-02-24 13:36] VITALS: BP 124/69; PULSE 79; RESP 18; TEMP 36.6; O2SAT 97
== END 2023-02-24 14:10 | disposition home or self-care (01) ==
PROVIDERS: PCP Internal Medicine; Visit Provider Anesthesiology
PROC: (CPT 64555; principal; 2023-02-24 13:00)
DX: M47.817 Spondylosis without myelopathy or radiculopathy, lumbosacral region (principal); M51.36 Other intervertebral disc degeneration, lumbar region; M54.50 Low back pain, unspecified; G89.4 Chronic pain syndrome; J44.9 Chronic obstructive pulmonary disease, unspecified; R53.1 Weakness; I10 Essential (primary) hypertension; Z86.73 Personal history of transient ischemic attack (TIA), and cerebral infarction without residual deficits; Z79.899 Other long term (current) drug therapy; Z79.1 Long term (current) use of non-steroidal anti-inflammatories (NSAID)
CPT/HCPCS: 64555; C1778

== ENCOUNTER → 2023-02-24 12:17 | Outpatient (BNV) | payer MEDICAID, SELFPAY | PROVIDERS: PCP Internal Medicine; Visit Provider Anesthesiology | DX: M47.817 Spondylosis without myelopathy or radiculopathy, lumbosacral region (principal) | CPT/HCPCS: 64555 ==

== ENCOUNTER → 2023-03-03 11:19 | Outpatient (BNVA) | payer MEDICAID, SELFPAY | PROVIDERS: PCP Internal Medicine; Visit Provider Anesthesiology | DX: Z48.00 Encounter for change or removal of nonsurgical wound dressing (principal); Z96.82 Presence of neurostimulator | CPT/HCPCS: 99211 ==

== ENCOUNTER 2023-03-15 10:03 | Outpatient (AMB) | payer MEDICAID, SELFPAY ==
--- NOTE | 2023-03-15 10:04 | MHC.OFFVIS ---
Intake Vital Signs 03/15/23 10:16 Height 5 ft 2 in Weight 193 lb BMI 35.3 BP 130/78 Blood Pressure Location Rt brachial Position Sitting Pulse 98 Pulse Source Pulse Oximeter Pulse Oximetry (%) 97 Oxygen Delivery Method Room Air Intake Visit Reasons: Sprint Removal Intake Note: Pain today 10/04 Dye And Chemical Coordinator Required: Yes Dye And Chemical Coordinator Language: Malawian Accompanied by: Unknown Allergies No Known Allergies [No Known Allergies*] Allergy (Verified 03/15/23 10:17) HPI HPI Comments History of Present Illness Details Patient presents today for Left L4 Sprint PNS removal. Patient reports 60-70% overall pain relief for her axial low back pain. Current settings for left at 55 and right at 60 with positive paresthesia lower back bilaterally. Patient improves improvement in her daily functioning, mobility, sleep, mood, better social interactions and better quality of life. Lead insertion sites look clean, dry, intact, no pathological discharge. Areas were cleansed with Chloraprep. Left lead pulled with tip intact and the bilateral areas were cleansed again with Chloraprep, applied Bacitracin and covered it with gauze and tegaderm. Denies any recent cough, cold, infection, fever or other significant changes in medical history since last office visit. Patient denies any bladder or bowel incontinence or saddle anesthesia. Past Procedures: 02/24/23: Right L4 Sprint PNS-60% pain relief 02/10/23: Left L4 Sprint PNS-70% pain relief 12/14/22: Bilateral L3-L4- DRL5 Diagnostic MBBs ? 100% relief for 4 days. PRIOR: Pain is a pleasant 61-year-old [place]awian-speaking female with prior history of L5 fracture in 2009 and lumbar degenerative disc disease presents today for initial evaluation of low back pain. Denies any recent trauma, injury, or falls. Her back pain presents as mostly axial is occasional radiation of pain into her right buttock and posterior leg and at times anterior lower leg. Here pain has been getting progressively worse over the past 2 months and she reports experiencing excruciating and debilitating pain the last 2 weeks. Patient reports completing physical therapy which has increased her pain. Lumbar extension significantly increases her pain, bending or flexion forward reproduces minimal pain. Pain affects her daily activities, functioning, sleep, mood, and social interactions. She has been managing her pain is gabapentin, ibuprofen, and heat therapy is continued symptoms. Reports occasional weakness in her legs which necessitates the use of walker. Denies any fever, weight changes, abdominal or groin pain, bladder or bowel incontinence, or saddle anesthesia. Location Axial low back pain with intermittent radicular pain Duration Chronic back pain, worsening over the past 2 months Characteristics of symptom or complaint Pulsing, throbbing, sharp, aching, cramping, dull, sore, hurting, heavy Aggravating or associated factors Walking, sitting, standing, changing positions, Relieving factors Heat pad or showers, gabapentin, ibuprofen Treatment PT-no relief, worsening of pain PFSH Medical History Chronic constipation History of colon polyps Internal hemorrhoids CVA (cerebral vascular accident) Abdominal pain Barretts esophagus Acid reflux Dyspnea Depression Anxiety Hypertension COPD (chronic obstructive pulmonary disease) Surgical History Hx of colonoscopy History of esophagogastroduodenoscopy (EGD) H/O section History of appendectomy History of cholecystectomy Family History Mother Cancer Maternal Grandmother Cancer Social History Household Members: None Alcohol intake: never Patient Tobacco Use Status: Never used Tobacco Current occupational status: disabled Review of Systems Const All systems reviewed & are unremarkable except as noted in HPI and below Physical Exam Vital Signs: Last Vital Signs Pulse 98 03/15/23 10:16 BP 130/78 03/15/23 10:16 Pulse Ox 97 03/15/23 10:16 Oxygen Delivery Method Room Air 03/15/23 10:16 BMI result Body Mass Index 35.3 General: Appears afebrile. Alert and oriented. Mood and affect appropriate. Follows and participates in conversation appropriately. Respiratory effort is unlabored. Able to transition from sit to stand unassisted. Ambulates with bilaterally normal heel strike and toe off. Lead Insertion Site: Lead insertion sites look clean, dry, intact. Left Lead pulled with tip intact. Right lead site dressing changed today. The area was cleansed again with ChloraPrep, dressed with Sprint gauze and tegaderm dressing. Results Reviewed Results Reviewed: MR LUMBAR SPINE WITHOUT CONTRAST 05/03/23 FINDINGS: The lumbar vertebral bodies normal alignment. There is chronic superior endplate compression fracture at L5 with 60% height loss centrally. No retropulsion. There is no significant disc height loss. No bone marrow edema is seen. The distal spinal cord appears normal. The conus medullaris terminates normally at the L1-L2 level. The extraspinal soft tissues are within normal limits. SPINAL LEVELS: L1-L2: No posterior disc abnormality. No spinal canal or neural foraminal stenosis. L2-L3: No posterior disc abnormality. No spinal canal or neural foraminal stenosis. L3-L4: No posterior disc abnormality. No spinal canal or neural foraminal stenosis. L4-L5: Minimal disc bulging with mild facet arthropathy. No spinal canal stenosis. Mild narrowing of the bilateral neural foramina. L5-S1: Mild disc bulging with moderate facet arthropathy. No spinal canal stenosis. Mild narrowing of the bilateral neural foramina. IMPRESSION: No significant narrowing of the spinal canal or neural foramina. Chronic superior endplate compression fracture at L5. Assessment & Plan Assessment & Plan (1) Chronic pain syndrome: Code(s): G89.4 - Chronic pain syndrome (2) Lumbosacral spondylosis: Code(s): M47.817 - Spondylosis without myelopathy or radiculopathy, lumbosacral region (3) Lumbar degenerative disc disease: Code(s): M51.36 - Other intervertebral disc degeneration, lumbar region Plan Patient presented today for Left L4 Sprint PNS lead removal. She reports ongoing 60-70% pain relief. Lead insertion sites looks clean, dry, intact, no pathological discharge. Area was cleansed with Chloraprep. Left lead pulled with tip intact and right lead remains for another 4 weeks. The area was cleansed again with Chloraprep, applied Bacitracin and covered it with gauze and tegaderm. All questions were answered and the patient agreed with the plan. Follow up for Right Sprint removal as scheduled and sooner as needed. Coding Level of Care Code Est Pt Level 4 (25819) Diagnoses Chronic pain syndrome G89.4 Lumbosacral spondylosis M47.817 Lumbar degenerative disc disease M51.36
[2023-03-15 10:16] VITALS: BP 130/78; PULSE 98; O2SAT 97; BMI 35.3
== END 2023-03-15 10:44 | disposition home or self-care (01) ==
PROVIDERS: PCP Internal Medicine; Visit Provider Nurse Practitioner Family
DX: G89.4 Chronic pain syndrome (principal); M47.817 Spondylosis without myelopathy or radiculopathy, lumbosacral region; M51.36 Other intervertebral disc degeneration, lumbar region
CPT/HCPCS: 99214

== ENCOUNTER → 2023-03-15 10:03 | Outpatient (BNVA) | payer MEDICAID, SELFPAY | PROVIDERS: PCP Internal Medicine; Visit Provider Nurse Practitioner Family | DX: Z45.42 Encounter for adjustment and management of neurostimulator (principal); M47.817 Spondylosis without myelopathy or radiculopathy, lumbosacral region; M51.36 Other intervertebral disc degeneration, lumbar region; G89.4 Chronic pain syndrome | CPT/HCPCS: 99212 ==

== ENCOUNTER 2023-03-25 12:09 | Outpatient (REF) | payer MEDICAID, SELFPAY ==
--- NOTE | ~2023-03-25 | XR_ITS ---
EXAMINATION: XR SHOULDER, LEFT CLINICAL INFORMATION: Pain. COMPARISON: Prior radiographs, most recently 02/09/2023. TECHNIQUE: AP external rotation, Grashey, scapular Y, and axillary views of the left shoulder. FINDINGS: Bony alignment and mineralization are normal. The glenohumeral joint is intact and shows very mild inferior peripheral osteophyte formation. The acromioclavicular and coracoclavicular intervals are normal. A displaced crescentic fracture fragment is redemonstrated arising from the superolateral margin of the left humeral head towards the greater tuberosity. There is no significant new callus formation. No dislocation is seen. There is no soft tissue calcification or foreign body. No left pneumothorax is seen. XR/XR shoulder LT min 2V IMPRESSION: 1. There is stable alignment of a displaced crescentic fracture fragment arising from the superolateral left humeral head. No new callus formation is seen. 2. There is very mild osteoarthritic change of the left glenohumeral joint.
== END 2023-03-25 12:10 | disposition home or self-care (01) ==
LOC: HO.HOSX 12:09
PROVIDERS: Visit Provider Physician Assistant
DX: S42.255D Nondisplaced fracture of greater tuberosity of left humerus, subsequent encounter for fracture with routine healing (principal); S46.002D Unspecified injury of muscle(s) and tendon(s) of the rotator cuff of left shoulder, subsequent encounter
CPT/HCPCS: 73030; 99212

== ENCOUNTER 2023-03-25 12:45 | Outpatient (AMB) | payer MEDICAID, SELFPAY ==
--- NOTE | 2023-03-25 12:49 | MHC.OFFVIS ---
Intake Vital Signs 03/25/23 13:19 Height 5 ft 2 in Weight 193 lb BMI 35.3 Intake Visit Reasons: ov- Displaced FX of LT shoulder Intake Note: Royer 62 year old right hand dominant male who presents today for a follow up evaluation of left shoulder s/p fall. Xrays updated in office. Patient reports no change in symptoms, stating constant pain radiating down to her elbow. Acupuncturist Name: Margy #[id number] Allergies No Known Allergies [No Known Allergies*] Allergy (Verified 03/25/23 12:50) Medication List - Last Reconciled 03/25/23 by Grace Mason, ESTELLE albuterol sulfate 90 mcg/actuation (Proventil HFA) puffs inhalation QID PRN atorvastatin 40 mg PO DAILY betamethasone valerate 0.1% topical bupropion HCl 300 mg PO QAM citalopram (Celexa) 20 mg PO DAILY clopidogrel 75 mg PO DAILY docusate sodium 100 mg PO famotidine 40 mg PO BEDTIME 30 days furosemide 40 mg PO DAILY 30 days gabapentin 600 mg PO haloperidol 0 mg PO hydrochlorothiazide 25 mg PO DAILY ibuprofen 600 mg PO Q8H PRN lidocaine 5% 0 patches topical lisinopril 10 mg PO QAM lorazepam 0.5 mg PO Q8H PRN meloxicam 15 mg PO QAM mirtazapine 60 mg PO BEDTIME pantoprazole 40 mg PO DAILY peg-electrolyte soln 420 gram 240 mL PO ONCE PRN 1 day quetiapine 400 mg PO BEDTIME risperidone 3 mg PO BEDTIME umeclidinium-vilanterol 62.5-25 mcg/actuation (Anoro Ellipta) 1 ea inhalation DAILY venlafaxine ER 75 mg PO QAM verapamil ER 120 mg PO QAM HPI ov- Displaced FX of LT shoulder HPI Details 62-year-old right hand dominant female who returns to the office today with an sumac tanner for a follow-up of left shoulder fracture s/p fall. She continues to have constant pain in her shoulder which radiates to her elbow and states she has no change in her symptoms since the last visit. [facility] Medical History Chronic constipation History of colon polyps Internal hemorrhoids CVA (cerebral vascular accident) Abdominal pain Barretts esophagus Acid reflux Dyspnea Depression Anxiety Hypertension COPD (chronic obstructive pulmonary disease) Surgical History Hx of colonoscopy History of esophagogastroduodenoscopy (EGD) H/O section History of appendectomy History of cholecystectomy Family History Mother Cancer Maternal Grandmother Cancer Social History Household Members: None Alcohol intake: never Patient Tobacco Use Status: Never used Tobacco Current occupational status: disabled Review of Systems Const All systems reviewed & are unremarkable except as noted in HPI and below Physical Exam Vital Signs: BMI result Body Mass Index 35.3 Const General: cooperative, healthy appearing, comfortable, no acute distress, well developed and alert Orientation/consciousness: patient oriented x3 HEENT Head: Yes normal to inspection, Yes normocephalic and Yes atraumatic Eyes General: appearance normal, both eyes and all related structures Resp Effort & Inspection: normal respiratory effort and able to speak in complete sentences Cardio Rate: regular rate Peripheral pulses: Peripheral pulses 2+ throughout GI Palpation (GI): Soft to palpation Skin Lesions: no lesions Rashes: no rashes Neuro General: patient oriented x3 Extrem Other: Left shoulder: Normal to inspection. She does have tenderness over the greater tuberosity. Forward flexion to 90 degrees, external rotation to 45 degrees, internal rotation limited to back pocket. She is able to activate the RTC strength on testing however she has significant discomfort with this. NVI. Results Reviewed Results Reviewed: X-rays of the left shoulder obtained in the office today show interval healing through the greater tuberosity without displacement. Assessment & Plan Assessment & Plan (1) Fracture of greater tuberosity of left humerus: Code(s): S42.252A - Displaced fracture of greater tuberosity of left humerus, initial encounter for closed fracture Qualifiers: Encounter type: subsequent encounter Fracture type: closed Fracture alignment: nondisplaced Fracture healing: with routine healing Qualified Code(s): S42.255D - Nondisplaced fracture of greater tuberosity of left humerus, subsequent encounter for fracture with routine healing (2) Injury of left rotator cuff: Code(s): S46.002A - Unspecified injury of muscle(s) and tendon(s) of the rotator cuff of left shoulder, initial encounter Qualifiers: Encounter type: subsequent encounter Qualified Code(s): S46.002D - Unspecified injury of muscle(s) and tendon(s) of the rotator cuff of left shoulder, subsequent encounter Plan She will continue to work with physical therapy to improve her motion and increase strength. I did give her a prescription of Celebrex to take twice a day for the next 2 weeks and once a day thereafter. She will see me back in 6 weeks with new x-rays, sooner if needed. Orders: Orders XR shoulder LT min 2V Today M25.512 - Pain in left shoulder Medications: New celecoxib (Celebrex) 200 mg PO BID 60 caps 3RF 30 days Patient Instructions: Scribed for Nani Martinez PA-C, by Jose Miguel Prado medical surgical tech, on 03/25/2023 at 1:00 PM EST. Nani Julien PA-C, have personally reviewed and agree with the information entered by the scribe. Coding Level of Care Code Global (11176) Diagnoses Closed nondisplaced fracture of greater tuberosity of left humerus with routine healing, subsequent encounter S42.255D Encounter type: subsequent encounter Fracture type: closed Fracture alignment: nondisplaced Fracture healing: with routine healing Injury of left rotator cuff, subsequent encounter S46.002D Encounter type: subsequent encounter
[2023-03-25 13:19] VITALS: BMI 35.3
== END 2023-03-25 13:48 | disposition home or self-care (01) ==
PROVIDERS: PCP Internal Medicine; Visit Provider Physician Assistant
DX: S42.255D Nondisplaced fracture of greater tuberosity of left humerus, subsequent encounter for fracture with routine healing (principal); S46.002D Unspecified injury of muscle(s) and tendon(s) of the rotator cuff of left shoulder, subsequent encounter
CPT/HCPCS: 99213

== ENCOUNTER 2023-04-08 11:00 | Outpatient (RCR) | payer MEDICAID, SELFPAY ==
[2023-02-25 10:03] VITALS: BP 121/62; PULSE 84
--- NOTE | 2023-02-25 10:54 | MHC.PT.EP ---
[facility] [place] Office [place] Office [place] Office [address] Thao [address] [phone] F: [phone] F: [phone] F: [phone] F: [phone] Physical Therapy Plan of Care Date of Evaluation: Date of Surgery: NA Diagnosis: Displaced fracture of greater tuberosity of L humerus, initial encounter for closed fracture Assessment: Gabrielle is a 62 year old female who is referred to PT for Displaced fracture of greater tuberosity of L humerus, initial encounter for closed fracture . She sustained the fracture secondary to fall about 4 months. She however did not get is checked until about 1 month back. She therefore had no periods of immobilization in a sling. On PT examination she presented with TTP over L AC joint, L middle deltoid, 6/10 constant pain in L shoulder, decreased L shoulder ROM, decreased shoulder and scap strength, and altered posture. 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 She would benefit from skilled PT to address the aforementioned impairments and improve tolerance to functional activities. Frequency and Duration: The patient will be seen 2/week for 6 weeks. Short Term Goals: 1. Pt will have 50% decreased in pain which will enable her to sleep through the night in 2 weeks. 2. Pt will demonstrate increase all shoulder ROM by 50% which will enable to use her to make her own bed in 3 weeks. Retirement Goals: 1. Pt will demonstrate an increase in muscle strength by 1 grade which will enable to use cane on L side for ambulation and clean dishes without assistance in 5 weeks. 2. Pt will be independent with HEP for symptom management and maintenance following d/c in 6 weeks. Treatment Plan: Modalities to reduce pain, spasms and effusion. Manual therapy to restore motion and function. Therapeutic exercise to improve strength and flexibility. Neuromuscular re-education for posture and balance. Therapeutic activities to return to functional activities of daily living. Electronically signed by: Kathleen Delacruz PT DPT Please sign and return to therapist. Thank you for your referral.
--- NOTE | 2023-05-16 14:27 | MHC.PT.DC ---
[facility] [place] Office [place] Office [place] [facility] [address] Rachele Thao [address] [phone] F: [phone] F: [phone] F: [phone] F: [phone] Physical Therapy Discharge Report Diagnosis: Displaced fracture of greater tuberosity of L humerus, initial encounter for closed fracture Date of Surgery: NA Date of Evaluation: 02/25/23 Date of Discharge: 05/16/23 Treatments to Date: 9 Cancellations to Date: 1 No Shows to Date: 2 Discharge Status: Independent with HEP Discharge Summary: Gabrielle completed 9 PT visits. She did not make much improvements with PT and has very limited tolerance to exercise. Due to this she is being d/c from PT. At the time of her last appointment she was independent with HEP which she could tolerate. Electronically signed by: Kathleen Delacruz PT DPT Please sign and return to therapist. Thank you for your referral.
== END 2023-05-16 14:28 | disposition home or self-care (01) ==
LOC: HO.PT 11:00
PROVIDERS: PCP Internal Medicine; Visit Provider Physician Assistant
DX: S42.252D Displaced fracture of greater tuberosity of left humerus, subsequent encounter for fracture with routine healing (principal); S46.002D Unspecified injury of muscle(s) and tendon(s) of the rotator cuff of left shoulder, subsequent encounter
CPT/HCPCS: 97110; 97161

== ENCOUNTER 2023-04-25 08:57 | Outpatient (AMB) | payer MEDICAID, SELFPAY ==
[2023-04-25 09:29] VITALS: BP 126/71; PULSE 103; RESP 14; O2SAT 97; BMI 34.9
--- NOTE | 2023-04-25 09:29 | A.OFFVIS_ITS ---
Intake Vital Signs 04/25/23 09:29 Height 5 ft 2 in Weight 191 lb BMI 34.9 BP 126/71 Blood Pressure Location Rt brachial Position Sitting Respiration 14 Pulse 103 H Pulse Source Pulse Oximeter Pulse Oximetry (%) 97 Intake Visit Reasons: 60 SPRINT Removal Allergies No Known Allergies [No Known Allergies*] Allergy (Verified 03/25/23 12:50) HPI HPI Comments History of Present Illness Details Patient presents today for Right L4 Sprint PNS removal. Patient reports 90-100% ongoing pain relief for her axial low back pain. Current settings for right at 55 at 60 with positive paresthesia lower back on the right. She continues to report pain relief since recent left L4 Sprint removal. Patient reports improvement in her daily functioning, mobility, sleep, mood, able to stand and walk more straight, better social interactions and better quality of life. Lead insertion sites look clean, dry, intact, no pathological discharge. Lead removed with tip intact by Kortney MCCABE. Denies any recent cough, cold, infection, fever or other significant changes in medical history since last office visit. Patient denies any bladder or bowel incontinence or saddle anesthesia. Past Procedures: 02/24/23: Right L4 Sprint PNS-60% pain r elief, removed 04/25/23 02/10/23: Left L4 Sprint PNS-70% pain re lief, removed 03/15/23 12/14/22: Bilateral L3-L4- DRL5 Diagnost ic MBBs ? 100% relief for 4 days. PRIOR: Pain is a pleasant 61-year-old [place] Citizen-speaking female with prior history of L5 fracture in 2009 and lumbar degenerative disc disease presents today for initial evaluation of low back pain. Denies any recent trauma, injury, or falls. Her back pain presents as mostly axial is occasional radiation of pain into her right buttock and posterior leg and at times anterior lower leg. Here pain has been getting progressively worse over the past 2 months and she reports experiencing excruciating and debilitating pain the last 2 weeks. Patient reports completing physical therapy which has increased her pain. Lumbar extension significantly increases her pain, bending or flexion forward reproduces minimal pain. Pain affects her daily activities, functioning, sleep, mood, and social interactions. She has been managing her pain is gabapentin, ibuprofen, and heat therapy is continued symptoms. Reports occasional weakness in her legs which necessitates the use of walker. Denies any fever, weight changes, abdominal or groin pain, bladder or bowel incontinence, or saddle anesthesia. Location Axial low back pain with intermittent radicular pain Duration Chronic back pain, worsening over the past 2 months Characteristics of symptom or complaint Pulsing, throbbing, sharp, aching, cramping, dull, sore, hurting, heavy Aggravating or associated factors Walking, sitting, standing, changing positions, Relieving factors Heat pad or showers, gabapentin, ibuprofen Treatment PT-no relief, worsening of pain PFSH Medical History Chronic constipation History of colon polyps Internal hemorrhoids CVA (cerebral vascular accident) Abdominal pain Barretts esophagus Acid reflux Dyspnea Depression Anxiety Hypertension COPD (chronic obstructive pulmonary disease) Surgical History Hx of colonoscopy History of esophagogastroduodenoscopy (EGD) H/O section History of appendectomy History of cholecystectomy Family History Mother Cancer Maternal Grandmother Cancer Social History Household Members: None Alcohol intake: never Patient Tobacco Use Status: Never used Tobacco Current occupational status: disabled Review of Systems Const All systems reviewed & are unremarkable except as noted in HPI and below Physical Exam Vital Signs: Last Vital Signs Pulse 103 H 04/25/23 09:29 Resp 14 04/25/23 09:29 BP 126/71 04/25/23 09:29 Pulse Ox 97 04/25/23 09:29 BMI result Body Mass Index 34.9 General: Appears afebrile. Alert and oriented. Mood and affect appropriate. Follows and participates in conversation appropriately. Respiratory effort is unlabored. Able to transition from sit to stand unassisted. Ambulates with bilaterally normal heel strike and toe off. Lead Insertion Site: Lead insertion sites look clean, dry, intact. Lead pulled with tip intact. Assessment & Plan Assessment & Plan (1) Lumbosacral spondylosis: Code(s): M47.817 - Spondylosis without myelopathy or radiculopathy, lumbosacral region (2) Lumbar degenerative disc disease: Code(s): M51.36 - Other intervertebral disc degeneration, lumbar region Plan Patient presented today for Right L4 Sprint PNS lead removal. Left L4 Sprint removed on 03/15/23. She reports ongoing 90-100% pain relief with significant improvement in her functioning, walking, movements, sleep and social activities. Patient will continue monitor her pain and notify our office when back pain returns. All questions were answered and the patient agreed with the plan. Follow up as needed. Coding Level of Care Code Est Pt Level 3 (58152) Diagnoses Lumbosacral spondylosis M47.817 Lumbar degenerative disc disease M51.36
== END 2023-04-25 09:14 | disposition home or self-care (01) ==
PROVIDERS: PCP Internal Medicine; Visit Provider Nurse Practitioner Family
DX: M47.817 Spondylosis without myelopathy or radiculopathy, lumbosacral region (principal); M51.36 Other intervertebral disc degeneration, lumbar region
CPT/HCPCS: 99213

== ENCOUNTER → 2023-04-25 08:57 | Outpatient (BNVA) | payer MEDICAID, SELFPAY | PROVIDERS: PCP Internal Medicine; Visit Provider Nurse Practitioner Family | DX: Z45.89 Encounter for adjustment and management of other implanted devices (principal); M47.817 Spondylosis without myelopathy or radiculopathy, lumbosacral region; M51.36 Other intervertebral disc degeneration, lumbar region | CPT/HCPCS: 99212 ==

== ENCOUNTER 2023-05-09 08:40 | Outpatient (REF) | payer MEDICAID, SELFPAY | END 2023-05-09 08:41 | disposition home or self-care (01) | LOC: HO.HOSX 08:40 | PROVIDERS: Visit Provider Physician Assistant | DX: Z13.89 Encounter for screening for other disorder (principal) ==

== ENCOUNTER 2023-05-30 09:22 | Outpatient (AMB) | payer MEDICAID, SELFPAY ==
--- NOTE | 2023-05-30 09:24 | A.OFFVIS_ITS ---
Intake Vital Signs 05/30/23 09:31 Height 5 ft 2 in Weight 191 lb 8 oz BMI 35.0 BP 106/57 L Blood Pressure Location Lt brachial Position Sitting Pulse 94 Pulse Source Pulse Oximeter Pulse Oximetry (%) 97 Oxygen Delivery Method Room Air Intake Visit Reasons: CHRONIC BACK PAIN Intake Note: Pain today 03/06. Advanced Manufacturing Technician Required: Yes Advanced Manufacturing Technician Language: [employer] Name: Deepa #[id number] Accompanied by: Self / Same As Patient Allergies No Known Allergies [No Known Allergies*] Allergy (Verified 05/30/23 09:30) HPI HPI Comments History of Present Illness Details Patient presents today for follow up with worsening right sided low back pain that radiates into her right buttock and lateral right hip to the knee level. Reports intermittent numbness and tingling in lateral right hip but not in her right lower leg, foot or toes. Pain affects her daily functioning, activities, mobility and sleep. She reports ongoing relief for her axial low back pain status post Sprint removal in January. Patient is interested to undergo right diagnostic sacroiliac joint injection as next steps. Patient denies any bladder or bowel incontinence or saddle anesthesia. Past Procedures: 02/24/23: Right L4 Sprint PNS-60% pain r elief, removed 04/25/23 02/10/23: Left L4 Sprint PNS-70% pain re lief, removed 03/15/23 12/14/22: Bilateral L3-L4- DRL5 Diagnost ic MBBs ? 100% relief for 4 days. PRIOR: Pain is a pleasant 61-year-old Central [place]-speaking female with prior history of L5 fracture in 2008 and lumbar degenerative disc disease presents today for initial evaluation of low back pain. Denies any recent trauma, injury, or falls. Her back pain presents as mostly axial is occasional radiation of pain into her right buttock and posterior leg and at times anterior lower leg. Here pain has been getting progressively worse over the past 2 months and she reports experiencing excruciating and debilitating pain the last 2 weeks. Patient reports completing physical therapy which has increased her pain. Lumbar extension significantly increases her pain, bending or flexion forward reproduces minimal pain. Pain affects her daily activities, functioning, sleep, mood, and social interactions. She has been managing her pain is gabapentin, ibuprofen, and heat therapy is continued symptoms. Reports occasional weakness in her legs which necessitates the use of walker. Denies any fever, weight changes, abdominal or groin pain, bladder or bowel incontinence, or saddle anesthesia. Location Axial low back pain with intermittent radicular pain Duration Chronic back pain, worsening over the past 2 months Characteristics of symptom or complaint Pulsing, throbbing, sharp, aching, cramping, dull, sore, hurting, heavy Aggravating or associated factors Walking, sitting, standing, changing positions, Relieving factors Heat pad or showers, gabapentin, ibuprofen Treatment PT-no relief, worsening of pain PFSH Medical History Chronic constipation History of colon polyps Internal hemorrhoids CVA (cerebral vascular accident) Abdominal pain Barretts esophagus Acid reflux Dyspnea Depression Anxiety Hypertension COPD (chronic obstructive pulmonary disease) Surgical History Hx of colonoscopy History of esophagogastroduodenoscopy (EGD) H/O section History of appendectomy History of cholecystectomy Family History Mother Cancer Maternal Grandmother Cancer Social History Household Members: None Alcohol intake: never Patient Tobacco Use Status: Never used Tobacco Current occupational status: disabled Review of Systems Const All systems reviewed & are unremarkable except as noted in HPI and below Physical Exam Vital Signs: Last Vital Signs Pulse 94 05/30/23 09:31 BP 106/57 L 05/30/23 09:31 Pulse Ox 97 05/30/23 09:31 Oxygen Delivery Method Room Air 05/30/23 09:31 BMI result Body Mass Index 35.0 General: Appears afebrile. Alert and oriented. Mood and affect appropriate. Follows and participates in conversation appropriately. Respiratory effort is unlabored. Able to transition from sit to stand unassisted. Uses cane with ambulation. Ambulates with bilaterally normal heel strike and toe off. Back/Spine/Pelvis Other: No midline tenderness to palpation in the thoracic or lumbar spine. No paraspinal tenderness to palpation in the lumbar spine. Lumbar extension and flexion reproduces mild pain. SI distraction, Kraig?s test, side thrust and compression positive on the right. Cervical Spine: cervical ROM normal and No Cervical spine tenderness Thoracic/Lumbar Spine: thoracic and lumbar spine normal to inspection, No Thoracic/lumbar spine scar(s), Lasegue's sign negative, straight leg raise negative bilaterally, thoraco-lumbar ROM limited, No thoracic spinal tenderness and lumbar spinal tenderness at L4 and at L5 Pelvis: buttock tenderness on the right Sacroiliac joints: on the right tender to palpation and on the left nontender Results Reviewed Results Reviewed: MR LUMBAR SPINE WITHOUT CONTRAST 10/27/22 FINDINGS: The lumbar vertebral bodies normal alignment. There is chronic superior endplate compression fracture at L5 with 60% height loss centrally. No retropulsion. There is no significant disc height loss. No bone marrow edema is seen. The distal spinal cord appears normal. The conus medullaris terminates normally at the L1-L2 level. The extraspinal soft tissues are within normal limits. SPINAL LEVELS: L1-L2: No posterior disc abnormality. No spinal canal or neural foraminal stenosis. L2-L3: No posterior disc abnormality. No spinal canal or neural foraminal stenosis. L3-L4: No posterior disc abnormality. No spinal canal or neural foraminal stenosis. L4-L5: Minimal disc bulging with mild facet arthropathy. No spinal canal stenosis. Mild narrowing of the bilateral neural foramina. L5-S1: Mild disc bulging with moderate facet arthropathy. No spinal canal stenosis. Mild narrowing of the bilateral neural foramina. IMPRESSION: No significant narrowing of the spinal canal or neural foramina. Chronic superior endplate compression fracture at L5. Assessment & Plan Assessment & Plan (1) Lumbar degenerative disc disease: Code(s): M51.36 - Other intervertebral disc degeneration, lumbar region (2) Lumbosacral spondylosis: Code(s): M47.817 - Spondylosis without myelopathy or radiculopathy, lumbosacral region (3) Chronic pain syndrome: Code(s): G89.4 - Chronic pain syndrome (4) Sacroiliac joint pain: Code(s): M53.3 - Sacrococcygeal disorders, not elsewhere classified Plan Schedule Right Diagnostic Sacroiliac Joint Injection with local and fluoroscopy. Discussed peripheral nerve stimulation with Curonix trial, SI joint fusion, and RFA procedures if positive response. Patient has history of L5 compression fracture and is not candidate for steroid injections. All questions were answered and the patient is in agreement with the plan. Follow up after injections and sooner as needed. Anticoagulation: Patient on anticoagulation (Plavix) and instructions given on when to pause with prescribing physician permission. Justification for interventional therapy: ? Patient with average pain > 6/10 ? Patient has exhausted conservative therapy, NSAIDs, physical therapy The risks, consequences, alternatives, and benefits of various treatment options were discussed with the patient in great detail, including conservative management, injections and procedures. Coding Level of Care Code Est Pt Level 4 (80131) Diagnoses Lumbar degenerative disc disease M51.36 Lumbosacral spondylosis M47.817 Chronic pain syndrome G89.4 Sacroiliac joint pain M53.3
[2023-05-30 09:31] VITALS: BP 106/57; PULSE 94; O2SAT 97; BMI 35.0
== END 2023-05-30 09:45 | disposition home or self-care (01) ==
PROVIDERS: PCP Internal Medicine; Visit Provider Nurse Practitioner Family
DX: M51.36 Other intervertebral disc degeneration, lumbar region (principal); M47.817 Spondylosis without myelopathy or radiculopathy, lumbosacral region; G89.4 Chronic pain syndrome; M53.3 Sacrococcygeal disorders, not elsewhere classified
CPT/HCPCS: 99214

== ENCOUNTER 2023-05-30 09:22 | Outpatient (REF) | payer MEDICAID, SELFPAY ==
--- NOTE | ~2023-05-30 | XR_ITS ---
EXAMINATION: XR BILATERAL HIPS WITH AP PELVIS CLINICAL INFORMATION: Pain in right hip COMPARISON: 02/06/2018 TECHNIQUE: AP view of the pelvis and single views of each hip were obtained. FINDINGS: No fracture. Hip joint spaces are maintained. Alignment is anatomic. Sacroiliac joints and pubic symphysis are normal. No abnormal soft tissue calcifications. XR/XR hip BI w PEL1V IMPRESSION: Normal pelvis and hips.
--- NOTE | ~2023-05-30 | XR_ITS ---
EXAMINATION: XR LUMBOSACRAL SPINE WITH OBLIQUES CLINICAL INFORMATION: Pain COMPARISON: 10/27/2022 MRI and radiograph from 08/09/2018 TECHNIQUE: AP, both oblique, and lateral views of the lumbar spine. Lateral view of the lumbosacral junction with flexion and extensions. FINDINGS: There is chronic deformity of the superior endplate of L5 most likely related to remote fracture and mild narrowing of L4-L5 intervertebral disc space. There is no instability or neuroforamina narrowing. There is facets arthropathy at the level of L4-L5 and L5-S1. . The paraspinal soft tissues are normal. XR/XR lumbar spine 6V w bending IMPRESSION: Mild compression deformity of L5 unchanged since previous studies in facets arthropathy. Mild narrowing of L4-L5 intervertebral disc spaces without instability.
== END 2023-05-30 09:23 | disposition home or self-care (01) ==
LOC: HO.XRAY 09:22
PROVIDERS: Absent Provider Physician Assistant; PCP Internal Medicine; Visit Provider Nurse Practitioner Family
DX: M51.36 Other intervertebral disc degeneration, lumbar region (principal); M47.817 Spondylosis without myelopathy or radiculopathy, lumbosacral region; M54.16 Radiculopathy, lumbar region; M25.551 Pain in right hip; M25.552 Pain in left hip
CPT/HCPCS: 72114; 73521; 99212

== ENCOUNTER 2023-05-31 10:46 | Outpatient (AMB) | payer MEDICAID, SELFPAY ==
[2023-05-31 10:51] VITALS: BP 102/62; PULSE 95; O2SAT 98; BMI 34.7
--- NOTE | 2023-05-31 10:51 | MHC.OFFVIS ---
Intake Vital Signs 05/31/23 10:51 Height 5 ft 2 in Weight 189 lb 9.561 oz BMI 34.7 BP 102/62 Blood Pressure Location Rt brachial Position Sitting Pulse 95 Pulse Source Doppler Pulse Oximetry (%) 98 Oxygen Delivery Method Room Air Intake Visit Reasons: Asthma Monumental Stonemason Required: Yes Monumental Stonemason Name: Alena Dinesh Cunningham Allergies No Known Allergies [No Known Allergies*] Allergy (Verified 05/31/23 10:55) HPI Asthma HPI Details 62-year-old lady, former 60 pack year smoker, quit 12 years prior, with underlying history of diastolic heart failure, recent normal sleep study, now followed for nocturnal hypoxemia and COPD.? She has been using Anoro and albuterol MDI with reasonable control of her symptoms. Patient does complain of orthopnea, paroxysmal nocturnal dyspnea, and lower extremity edema. She has also complain of snoring and unrestful sleep. [facility] Medical History Chronic constipation History of colon polyps Internal hemorrhoids CVA (cerebral vascular accident) Abdominal pain Barretts esophagus Acid reflux Dyspnea Depression Anxiety Hypertension COPD (chronic obstructive pulmonary disease) Surgical History Hx of colonoscopy History of esophagogastroduodenoscopy (EGD) H/O section History of appendectomy History of cholecystectomy Family History Mother Cancer Maternal Grandmother Cancer Social History Household Members: None Alcohol intake: never Patient Tobacco Use Status: Never used Tobacco Current occupational status: disabled Review of Systems Const Reports daytime sleepiness, Denies excessive sweating, Denies fatigue, Denies fever(s), Reports lethargy, Denies malaise, Denies night sweats, Reports snoring and Denies weight loss Eyes Denies blurry vision and Denies itchy eyes ENT Denies nasal congestion, Denies post nasal drip, Denies sinus pain, Denies sinus pressure and Denies other ( Thrush) Card Denies chest pain, Reports pedal edema, Denies dyspnea, Reports orthopnea and Reports paroxysmal nocturnal dyspnea Resp Denies cough, Denies hemoptysis, Denies excessive phlegm production, Denies dyspnea, Reports snoring and Denies wheezing GI Denies abdominal pain and Denies heartburn Musc Denies myalgias, Denies arthralgias and Denies joint swelling Skin/Breast Denies rash Neuro Denies memory loss and Denies seizure-like activity Psych Denies abnormal sleep pattern, Denies anxiety and Denies memory loss Endo Denies excessive sweating, Denies fatigue and Denies heat intolerance Zhen/Lymph Denies easy bruising Aller/Immun Denies itchy eyes, Denies seasonal rhinorrhea and Denies wheezing Physical Exam Vital Signs: Last Vital Signs Pulse 95 05/31/23 10:51 BP 102/62 05/31/23 10:51 Pulse Ox 98 05/31/23 10:51 Oxygen Delivery Method Room Air 05/31/23 10:51 BMI result Body Mass Index 34.7 Const General: no acute distress and alert Nutritional Appearance: not obese Orientation/consciousness: Other orientation findings ( oriented) HEENT Head: Yes atraumatic Eyes General: appearance normal, both eyes and all related structures Sclerae: sclerae normal EOM: EOMs intact bilaterally Neck Neck: Yes supple Lymphatic: no lymphadenopathy noted Resp Effort & Inspection: normal respiratory effort and no use of accessory muscles Auscultation: clear to auscultation bilaterally Cardio Rate: regular rate Rhythm: regular rhythm Heart sounds: no gallops, no murmurs and no rubs Skin General skin exam: other ( warm) Extrem General: No clubbing, No cyanosis and Yes edema (2+ bilateral) Assessment & Plan Assessment & Plan (1) COPD (chronic obstructive pulmonary disease): Code(s): J44.9 - Chronic obstructive pulmonary disease, unspecified Plan: Well controlled on Anoro and albuterol MDI. Continue current regimen. (2) Nocturnal hypoxemia: Code(s): G47.34 - Idiopathic sleep related nonobstructive alveolar hypoventilation Plan: Now on nocturnal oxygen. Continue with current oxygen therapy. (3) Paroxysmal nocturnal dyspnea: Code(s): R06.00 - Dyspnea, unspecified Plan: Underlying diastolic dysfunction, now with worsening paroxysmal nocturnal dyspnea, orthopnea, and lower extremity edema. Will change furosemide to Bumex 1 mg daily. (4) ESME (obstructive sleep apnea): Code(s): G47.33 - Obstructive sleep apnea (adult) (pediatric) Plan: Unrestful sleep, daytime sleepiness, [place] Sleepiness Scale score of 15. Will obtain home sleep study. Orders: Orders RT home sleep study Today G47.33 - Obstructive sleep apnea (adult) (pediatric) Medications: New bumetanide 1 mg PO DAILY 30 days 30 tabs 6RF Discontinued furosemide Discontinued Reason: Doctor's Order 40 mg PO DAILY 30 days 30 tabs 0RF Coding Level of Care Code Est Pt Level 4 (15005) Diagnoses COPD (chronic obstructive pulmonary disease) J44.9 Nocturnal hypoxemia G47.34 Paroxysmal nocturnal dyspnea R06.00 ESME (obstructive sleep apnea) G47.33
== END 2023-05-31 11:05 | disposition home or self-care (01) ==
PROVIDERS: PCP Internal Medicine; Referring Provider Internal Medicine; Visit Provider Internal Medicine Pulmonary Disease
DX: J44.9 Chronic obstructive pulmonary disease, unspecified (principal); G47.34 Idiopathic sleep related nonobstructive alveolar hypoventilation; R06.00 Dyspnea, unspecified; G47.33 Obstructive sleep apnea (adult) (pediatric)
CPT/HCPCS: 99214

== ENCOUNTER → 2023-05-31 10:46 | Outpatient (BNVA) | payer MEDICAID, SELFPAY | PROVIDERS: PCP Internal Medicine; Visit Provider Internal Medicine Pulmonary Disease | DX: J44.9 Chronic obstructive pulmonary disease, unspecified (principal); G47.34 Idiopathic sleep related nonobstructive alveolar hypoventilation; R06.00 Dyspnea, unspecified; G47.33 Obstructive sleep apnea (adult) (pediatric) | CPT/HCPCS: 99212 ==

== ENCOUNTER 2023-06-02 11:10 | Outpatient (REF) | payer MEDICAID, SELFPAY ==
[2023-06-02 13:42] LABS: Estimated Average Glucose 105 mg/dL; Hemoglobin A1c % 5.3 % (<6.0)
[2023-06-02 13:45] LABS: Anion Gap 12 (12-20); Blood Urea Nitrogen 19 mg/dL (9-16); Calcium 9.4 mg/dL (8.4-10.2); Carbon Dioxide 30 mmol/L (22-29); Chloride 105 mmol/L (96-108); Estimated Glomerular Filt Rate 44; Glucose Random 80 mg/dL (60-115); Potassium 4.3 mmol/L (3.3-5.1); Sodium 143 mmol/L (135-145)
[2023-06-02 13:48] LABS: Cholesterol 149 mg/dL (<200); HDL Cholesterol 57 mg/dL (>40); LDL Cholesterol Calculated 76 mg/dL (<100); Triglycerides 80 mg/dL (<150)
[2023-06-02 14:04] LABS: TSH reflex Free T4 2.29 uIU/mL (0.32-4.0); Vitamin D 25-OH Total 9.8 ng/mL (>30)
[2023-06-02 14:05] LABS: Reflex LDLD? No
== END 2023-06-02 11:11 | disposition home or self-care (01) ==
LOC: HO.HHCL 11:10
PROVIDERS: Visit Provider Internal Medicine
DX: I10 Essential (primary) hypertension (principal); R03.0 Elevated blood-pressure reading, without diagnosis of hypertension; G57.93 Unspecified mononeuropathy of bilateral lower limbs; Z86.73 Personal history of transient ischemic attack (TIA), and cerebral infarction without residual deficits
CPT/HCPCS: 36415; 80048; 80061; 82306; 83036; 84443

== ENCOUNTER 2023-06-13 13:46 | Outpatient (REF) | payer MEDICAID, SELFPAY ==
[2023-06-13 16:29] LABS: Anion Gap 16 (12-20); Blood Urea Nitrogen 15 mg/dL (9-16); Calcium 9.1 mg/dL (8.4-10.2); Carbon Dioxide 27 mmol/L (22-29); Chloride 105 mmol/L (96-108); Estimated Glomerular Filt Rate 48; Glucose Random 87 mg/dL (60-115); Potassium 3.6 mmol/L (3.3-5.1); Sodium 144 mmol/L (135-145)
[2023-06-13 16:43] LABS: Troponin-I High Sensitivity < 2.7 ng/L (<3.5-17.0)
== END 2023-06-13 13:47 | disposition home or self-care (01) ==
LOC: HO.CHCLDS 13:46
PROVIDERS: Visit Provider Registered Nurse
DX: R79.89 Other specified abnormal findings of blood chemistry (principal)
CPT/HCPCS: 36415; 80048; 84484

== ENCOUNTER 2023-06-15 15:41 | Outpatient (AMB) | payer MEDICAID, SELFPAY ==
[2023-06-15 15:42] VITALS: BP 124/78; PULSE 86; O2SAT 99; BMI 34.9
--- NOTE | 2023-06-15 15:42 | A.OFFVIS_ITS ---
Intake Vital Signs 06/15/23 15:42 Height 5 ft 2 in Weight 190 lb 11.198 oz BMI 34.9 BP 124/78 Blood Pressure Location Rt brachial Position Sitting Pulse 86 Pulse Source Doppler Pulse Oximetry (%) 99 Oxygen Delivery Method Room Air Intake Visit Reasons: Asthma follow-up University President Required: Yes University President Name: Alena Cunningham Allergies No Known Allergies [No Known Allergies*] Allergy (Verified 06/15/23 15:44) HPI Asthma follow-up HPI Details 62-year-old lady, former 60 pack year sm jose antonio, quit 12 years prior, with underlying history of diastolic heart failure, recent normal sleep study, now followed for nocturnal hypoxemia and COPD.? She has been using Anoro and albuterol MDI with reasonable control of her symptoms. Patient does complain of orthopnea, paroxysmal nocturnal dyspnea, and lower extremity edema. She has also complain of snoring and unrestful sleep. Patient presents today for sick visit complaining a cough productive of greenish sputum and worsening dyspnea. She also has been using Bumex 1 mg daily with on moderate improvement in her dyspnea on exertion and lower extremity edema. [facility] Medical History Chronic constipation History of colon polyps Internal hemorrhoids CVA (cerebral vascular accident) Abdominal pain Barretts esophagus Acid reflux Dyspnea Depression Anxiety Hypertension COPD (chronic obstructive pulmonary disease) Surgical History Hx of colonoscopy History of esophagogastroduodenoscopy (EGD) H/O section History of appendectomy History of cholecystectomy Family History Mother Cancer Maternal Grandmother Cancer Social History Household Members: None Alcohol intake: never Patient Tobacco Use Status: Never used Tobacco Current occupational status: disabled Review of Systems Const Denies daytime sleepiness, Denies excessive sweating, Denies fatigue, Denies fever(s), Denies lethargy, Denies malaise, Denies night sweats, Denies snoring and Denies weight loss Eyes Denies blurry vision and Denies itchy eyes ENT Denies nasal congestion, Denies post nasal drip, Denies sinus pain, Denies sinus pressure and Denies other ( Thrush) Card Denies chest pain, Reports pedal edema, Reports leg edema, Denies dyspnea, Reports dyspnea on exertion, Reports orthopnea and Denies paroxysmal nocturnal dyspnea Resp Reports cough, Denies hemoptysis, Reports excessive phlegm production, Denies dyspnea, Reports dyspnea on exertion, Denies snoring and Denies wheezing GI Denies abdominal pain and Denies heartburn Musc Denies myalgias, Denies arthralgias and Denies joint swelling Skin/Breast Denies rash Neuro Denies memory loss and Denies seizure-like activity Psych Denies abnormal sleep pattern, Denies anxiety and Denies memory loss Endo Denies excessive sweating, Denies fatigue and Denies heat intolerance Zhen/Lymph Denies easy bruising Aller/Immun Denies itchy eyes, Denies seasonal rhinorrhea and Denies wheezing Physical Exam Vital Signs: Last Vital Signs Pulse 86 06/15/23 15:42 BP 124/78 06/15/23 15:42 Pulse Ox 99 06/15/23 15:42 Oxygen Delivery Method Room Air 06/15/23 15:42 BMI result Body Mass Index 34.9 Const General: no acute distress and alert Nutritional Appearance: not obese Orientation/consciousness: Other orientation findings ( oriented) HEENT Head: Yes atraumatic Eyes General: appearance normal, both eyes and all related structures Sclerae: sclerae normal EOM: EOMs intact bilaterally Neck Neck: Yes supple Lymphatic: no lymphadenopathy noted Resp Effort & Inspection: normal respiratory effort and no use of accessory muscles Auscultation: crackles (Mild bibasilar) Cardio Rate: regular rate Rhythm: regular rhythm Heart sounds: no gallops, no murmurs and no rubs Skin General skin exam: other ( warm) Extrem General: No clubbing, No cyanosis and Yes edema (2+ bilateral) Assessment & Plan Assessment & Plan (1) COPD (chronic obstructive pulmonary disease): Code(s): J44.9 - Chronic obstructive pulmonary disease, unspecified Plan: Now with an acute bronchitic exacerbation, will treat with a course of Levaquin. Continue Anoro and albuterol MDI. (2) Dyspnea on exertion: Code(s): R06.09 - Other forms of dyspnea Plan: Modest improvement on Bumex 1 mg daily patient has been advised to double her Bumex for the next 5 days. (3) ESME (obstructive sleep apnea): Code(s): G47.33 - Obstructive sleep apnea (adult) (pediatric) Plan: Sleep study is pending. (4) Paroxysmal nocturnal dyspnea: Code(s): R06.00 - Dyspnea, unspecified Plan: Continue supplemental nocturnal oxygen. Medications: New levofloxacin 500 mg PO DAILY 7 tabs 0RF Coding Level of Care Code Est Pt Level 5 (98403) Diagnoses COPD (chronic obstructive pulmonary disease) J44.9 Dyspnea on exertion R06.09 ESME (obstructive sleep apnea) G47.33 Paroxysmal nocturnal dyspnea R06.00
== END 2023-06-15 15:57 | disposition home or self-care (01) ==
PROVIDERS: PCP Internal Medicine; Visit Provider Internal Medicine Pulmonary Disease
DX: J44.9 Chronic obstructive pulmonary disease, unspecified (principal); G47.33 Obstructive sleep apnea (adult) (pediatric)
CPT/HCPCS: 99214

== ENCOUNTER → 2023-06-15 15:41 | Outpatient (BNVA) | payer MEDICAID, SELFPAY | PROVIDERS: PCP Internal Medicine; Visit Provider Internal Medicine Pulmonary Disease | DX: J44.9 Chronic obstructive pulmonary disease, unspecified (principal); G47.33 Obstructive sleep apnea (adult) (pediatric); R06.09 Other forms of dyspnea; R06.00 Dyspnea, unspecified | CPT/HCPCS: 99212 ==

== ENCOUNTER 2023-06-17 11:13 | Outpatient (REF) | payer MEDICAID, SELFPAY ==
[2023-06-17 12:25] LABS: B Type Natriuretic Peptide 21 pg/mL (<100)
[2023-06-17 12:35] LABS: Anion Gap 12 (12-20); Blood Urea Nitrogen 16 mg/dL (9-16); Calcium 9.7 mg/dL (8.4-10.2); Carbon Dioxide 27 mmol/L (22-29); Chloride 106 mmol/L (96-108); Estimated Average Glucose 111 mg/dL; Estimated Glomerular Filt Rate 47; Glucose Random 97 mg/dL (60-115); Hemoglobin A1c % 5.5 % (<6.0); Phosphorus 2.3 mg/dL (2.7-4.5); Potassium 3.9 mmol/L (3.3-5.1); Sodium 141 mmol/L (135-145)
== END 2023-06-17 11:14 | disposition home or self-care (01) ==
LOC: HO.LAB 11:13
PROVIDERS: PCP Internal Medicine; Visit Provider Internal Medicine
DX: I11.0 Hypertensive heart disease with heart failure (principal); I50.9 Heart failure, unspecified; E83.39 Other disorders of phosphorus metabolism
CPT/HCPCS: 36415; 80048; 83036; 83735; 83880; 84100

== ENCOUNTER → 2023-07-12 14:50 | Outpatient (REF) | payer MEDICAID, SELFPAY | LOC: HO.SL 14:50 | PROVIDERS: PCP Internal Medicine; Visit Provider Internal Medicine Pulmonary Disease | DX: G47.33 Obstructive sleep apnea (adult) (pediatric) (principal) | CPT/HCPCS: 95806 ==

== ENCOUNTER → 2023-07-12 15:07 | Outpatient (BNV) | payer MEDICAID, SELFPAY | PROVIDERS: PCP Internal Medicine; Visit Provider Internal Medicine | DX: R06.83 Snoring (principal); R40.0 Somnolence | CPT/HCPCS: 95806 ==

== ENCOUNTER 2023-07-19 10:38 | Day surgery (SDC) | payer MEDICAID, SELFPAY ==
--- NOTE | 2023-07-18 09:10 | P.CONAN_ITS ---
HPI - Anesthesia Eval Consult details Narrative: 62yo F for Upper Endoscopy and Colonoscopy Per [facility] note, plavix to be stopped 06/18/23 and changed to life long aspirin. Follows [facility] pulmo Follows [facility] Cardio. Last office visit 05/2023. Increased lasix for increasing SOB. [facility] Active Problems Active Problems: All Active Problems (Updated 05/31/23 @ 11:34 by Tobias Disla MD) Paroxysmal nocturnal dyspnea (Acute) ESME (obstructive sleep apnea) (Acute) Sacroiliac joint pain (Acute) Injury of left rotator cuff (Acute) Fracture of greater tuberosity of left humerus (Acute) Chronic pain syndrome (Acute) Bilateral hip pain (Acute) Lumbar radiculopathy (Acute) Lumbosacral spondylosis (Acute) Lumbar degenerative disc disease (Acute) Dyspnea on exertion (Acute) COPD (chronic obstructive pulmonary disease) (Acute) Nocturnal hypoxemia (Acute) Pulmonary nodules (Acute) Chest pain of unknown etiology (Acute) Chronic constipation (Acute) History of colon polyps (Acute) Internal hemorrhoids (Acute) Encounter for screening colonoscopy (Acute) Abdominal pain (Acute) Barretts esophagus (Acute) Acid reflux (Acute) Past Medical History Medical History (Updated 07/28/23 @ 11:21 by Tobias Disla MD) Chronic constipation History of colon polyps Internal hemorrhoids CVA (cerebral vascular accident) Abdominal pain Barretts esophagus Acid reflux Dyspnea Depression Anxiety Hypertension COPD (chronic obstructive pulmonary disease) Family History Family History Mother Cancer Maternal Grandmother Cancer Family history of problems with anesthesia: No Surgical History Surgical History (Updated 07/26/23 @ 14:32 by Gabrielle Washington) Hx of colonoscopy History of esophagogastroduodenoscopy (EGD) H/O section History of appendectomy History of cholecystectomy History of Problems with Anesthesia: Yes Social History Social History Household Members: None Alcohol intake: never Patient Tobacco Use Status: Never used Tobacco Current occupational status: disabled Meds Allergies Allergy/AdvReac Type Severity Reaction Status Date / Time No Known Allergies Allergy Verified 07/19/23 11:00 [No Known Allergies*] Home Medications Medication Instructions Recorded Confirmed Last Taken Type citalopram 20 mg tablet (Celexa) 20 mg PO DAILY 07/31/20 07/19/23 Unknown History clopidogrel 75 mg tablet 75 mg PO DAILY 07/31/20 07/19/23 07/12/23 History hydrochlorothiazide 25 mg tablet 25 mg PO DAILY 07/31/20 07/19/23 02/24/23 History bupropion HCl 300 mg 24 hr tablet, 300 mg PO QAM 07/23/21 07/19/23 Unknown History extended release gabapentin 600 mg tablet 600 mg PO 07/23/21 03/25/23 Unknown History haloperidol 1 mg tablet 0 mg PO 07/23/21 03/25/23 Unknown History albuterol sulfate 90 mcg/actuation puff inhalation QID PRN wheezing 11/29/22 03/25/23 Unknown History aerosol inhaler (Proventil HFA) lorazepam 0.5 mg tablet 0.5 mg PO Q8H PRN anxiety 11/29/22 07/19/23 Unknown History docusate sodium 100 mg capsule 100 mg PO constipation 12/24/22 03/25/23 Unknown History meloxicam 15 mg tablet 15 mg PO QAM 12/24/22 07/19/23 Unknown History mirtazapine 30 mg tablet 60 mg PO BEDTIME 12/24/22 07/19/23 Unknown History risperidone 3 mg tablet 3 mg PO BEDTIME 12/24/22 07/19/23 Unknown History venlafaxine 75 mg capsule,extended 75 mg PO QAM 12/24/22 07/19/23 Unknown History release 24 hr verapamil 120 mg tablet,extended 120 mg PO QAM 12/24/22 07/19/23 Unknown History release lisinopril 10 mg tablet 10 mg PO QAM 01/20/23 07/19/23 02/24/23 History atorvastatin 10 mg tablet 10 mg PO BEDTIME 05/30/23 07/19/23 Unknown History Exam Pertinent Lab Results Pertinent Lab Results: Laboratory Tests 07/23/21 06/17/23 06/17/23 12:17 11:21 11:21 WBC 9.4 Hgb 12.1 Hct 35.6 L Plt Count 223 Sodium 141 Potassium 3.9 Chloride 106 Carbon Dioxide 27 BUN 16 Creatinine 1.16 Narrative Narrative: ECHO 2021 Conclusions: - 1. Normal LV systolic function with grade 1 diastolic dysfunction 2. Normal cardiac valvular Doppler 3. Normal RV systolic pressure 4. No pericardial effusion Assessment and Plan Assessment Anesthesia Assessment: Chart Reviewed Final Anesthetic Review Family History of Problems with Anesthesia: No History of Problems with Anesthesia: Yes
[2023-07-19] MEDS: Lactated Ringers 1,000 ML 50 ML IVCONT (11:36)
[2023-07-19 11:44] VITALS: BMI 36.6
[2023-07-19 11:45] VITALS: BP 113/74; PULSE 101; RESP 18; TEMP 36.8; O2SAT 98
--- NOTE | 2023-07-19 12:00 | MHC.SHP ---
Pre-Procedural Eval Section A Date of Service: 07/19/23 The patient is an INPATIENT: No The History & Physical has been completed within 30 days and I have reviewed it.: No Section B Chief Complaint: Surveillance for colon polyps, fu of Cárdenas's Relevant Family History (Specify if Yes): No Relevant Social History: None Present Medications: see Short Stay Collaborative assessment Medical History: Significant History (Barretts esophagus Chronic constipation COPD (chronic obstructive pulmonary disease) CVA (cerebral vascular accident) Depression Dyspnea History of colon polyps Hypertension) History of Previous Operations: Relevant previous surgery/procedure and date(s) (H/O section History of appendectomy History of cholecystectomy History of esophagogastroduodenoscopy (EGD) Hx of colonoscopy) Allergies: Allergies Allergy/AdvReac Type Severity Reaction Status Date / Time No Known Allergies Allergy Verified 07/19/23 11:00 [No Known Allergies*] Review of Systems Sugical H&P ROS: Negative: Constitution, Cardiovascular, Respiratory and Gastrointestinal Exam Surgical H&P Exam: Normal: Heart, Normal: Lungs, Normal: Extremities and Normal: Abdomen Plan Diagnosis/Plan: Unchanged I have reviewed the history and physical and performed a pertinent physical examination on my patient. No changes have occurred unless specified. Time Spent With Patient Time: Total time managing care of this patient today ____ minutes.
--- NOTE | 2023-07-19 12:59 | W.PM.OPN ---
Operative Note Operative Note Date of Service: 07/19/23 Narrative: FLEXIBLE TRANSORAL UPPER GASTROINTESTINAL ENDOSCOPY WITH BIOPSIES AND COLONOSCOPY TILL CECUM WITH BIOPSIES Pre-op diagnosis: Surveillance of colon polyps, follow-up of Cárdenas's Post-op diagnosis: Hiatal hernia, GERD, gastric polyps, gastritis, Cárdenas's, colon polyp, diverticulosis, hemorrhoids? Endoscopist:? Chacorta Vines MD Anesthesia:?MAC UPPER ENDOSCOPY Consent: Indications for the procedure and potential complications of bleeding, perforation, reaction to medications and missed diagnosis were discussed with the patient and informed consent was obtained. Instrument: Olympus GIF H 190 mid size upper endoscope Monitoring: Vital signs and clinical assessment, continuous EKG monitoring, Pulse oximetry, Carbon Dioxide monitoring and blood pressure monitoring were done throughout the procedure. Procedure: The patient was placed in the left lateral decubitis position and pre-procedure medications were administered and a bite block was placed. The endoscope was inserted into the mouth and advanced under direct vision to the third part of duodenum. A careful inspection was made as the upper endoscope was withdrawn including a retroflexed examination of the proximal stomach; Findings and interventions are described below. Findings: Larynx: Normal Esophagus: GE junction at 35 cms, small hiatal hernia 35 to 37 cms. A few 7-8 mm islands of Cárdenas's at the GE junction - biopsied. Stomach: A few 3-4 mm benign appearing polyps in the gastric body - biopsies were obtained. Grade 3 flap valve on retroflexed examination of the cardia. Duodenum: Normal bulb and descending duodenum Intervention: Biopsies as noted above COLONOSCOPY PROCEDURE NOTE Consent: Indications for the procedure and potential complications of bleeding, perforation, reaction to medications and missed diagnosis were discussed with the patient and informed consent was obtained. Instrument: Olympus PCF H 190 L variable stiffness pediatric colonoscope Monitoring: Vital signs and clinical assessment, intermittent blood pressure monitoring, continuous EKG monitoring, Pulse oximetry and Carbon Dioxide monitoring were done throughout the procedure. Colon withdrawl time was 16 minutes. Procedure: The patient was placed in the left lateral decubitis position and pre-procedure medications were administered. After a digital rectal examination of the ano-rectum, the video colonoscope was inserted into the rectum and advanced through the colon to the cecum. The colonoscope was slowly withdrawn in a retrograde panoramic fashion and the colon mucosa was carefully examined including a retroflexed view of the rectum. Findings and interventions are described below. Procedure Difficulty: Colon was long and tortuous and there was some loop formation Findings: Terminal Ileum: Not evaluated Cecum: Normal Ascending Colon: A 5-6 mm diminutive appearing polyp in the distal ascending colon - removed with a cold biopsy Transverse Colon: Normal Descending Colon: Moderate diverticulosis Sigmoid Colon: Severe diverticulosis Rectum: Normal Ano-rectum: Moderate internal hemorrhoids Colon preparation: Good after copious irrigation Impression and Post Procedure Diagnosis: Endoscopy Findings: ESOPHAGUS: GE junction at 35 cms, small hiatal hernia 35 to 37 cms. A few 7-8 mm islands of Cárdenas's at the GE junction - biopsied. STOMACH: A few 3-4 mm benign appearing polyps in the gastric body - biopsies were obtained. Colonoscopy Findings: One small polyp removed Moderate to severe diverticulosis seen in the left colon Moderate hemorrhoids on retroflexed exam. Plan: Await pathology results Patient has an appointment on 08/02/23 in the GI Clinic with HYUN Mcelroy. Repeat Colonoscopy interval based on path results - in 5 years if polyps are adenomatous and 10 years if polyps are hyperplastic (adult colonoscope for future procedures). Above findings were reviewed with the patient and Hiatal hernia, gastric polyps, colon polyps and diverticulosis handouts were given in the discharge area.
[2023-07-19 14:05] VITALS: BP 125/74; PULSE 103; RESP 16; TEMP 36.1; O2SAT 97
[2023-07-19 14:20] VITALS: BP 120/73; PULSE 102; RESP 16; TEMP 36.1; O2SAT 98
== END 2023-07-19 14:57 | disposition home or self-care (01) ==
PROVIDERS: PCP Internal Medicine; Visit Provider Internal Medicine Gastroenterology
PROC: (CPT 43239; principal; 2023-07-19 11:50)
DX: K31.7 Polyp of stomach and duodenum (principal); K22.70 Barrett's esophagus without dysplasia; K29.60 Other gastritis without bleeding; K44.9 Diaphragmatic hernia without obstruction or gangrene; K21.9 Gastro-esophageal reflux disease without esophagitis; Z12.11 Encounter for screening for malignant neoplasm of colon; D12.2 Benign neoplasm of ascending colon; K57.30 Diverticulosis of large intestine without perforation or abscess without bleeding; K64.8 Other hemorrhoids; K56.2 Volvulus; Z86.010 Personal history of colon polyps
CPT/HCPCS: 43239; 45380; 88305; 88342; J1596; J2704

== ENCOUNTER → 2023-07-19 10:38 | Outpatient (BNV) | payer MEDICAID, SELFPAY | PROVIDERS: PCP Internal Medicine; Visit Provider Internal Medicine Gastroenterology | DX: Z12.11 Encounter for screening for malignant neoplasm of colon (principal); Z86.010 Personal history of colon polyps; D12.2 Benign neoplasm of ascending colon; K57.90 Diverticulosis of intestine, part unspecified, without perforation or abscess without bleeding; K22.70 Barrett's esophagus without dysplasia; K31.7 Polyp of stomach and duodenum; K29.70 Gastritis, unspecified, without bleeding; K21.9 Gastro-esophageal reflux disease without esophagitis | CPT/HCPCS: 43239; 45380 ==

== ENCOUNTER 2023-07-28 11:05 | Outpatient (AMB) | payer MEDICAID, SELFPAY ==
[2023-07-28 11:07] VITALS: BP 134/68; PULSE 97; O2SAT 97; BMI 34.6
--- NOTE | 2023-07-28 11:07 | MHC.OFFVIS ---
Intake Vital Signs 07/28/23 11:07 Height 5 ft 2 in Weight 189 lb BMI 34.6 BP 134/68 Blood Pressure Location Rt brachial Position Sitting Pulse 97 Pulse Source Doppler Pulse Oximetry (%) 97 Oxygen Delivery Method Room Air Intake Visit Reasons: Asthma follow-up Production Maintenance Technician Required: Yes Production Maintenance Technician Name: Alena Dinesh Cunningham Allergies No Known Allergies [No Known Allergies*] Allergy (Verified 07/19/23 11:00) HPI Asthma follow-up HPI Details 62-year-old lady, former 60 pack year smoker, quit 12 years prior, with underlying history of diastolic heart failure, recent normal sleep study, now followed for nocturnal hypoxemia and COPD.? She has been using Anoro and albuterol MDI with reasonable control of her symptoms. Patient does complain of orthopnea, paroxysmal nocturnal dyspnea, and lower extremity edema. At the last office visit her Bumex was increased to twice a day for week with only modest improvement in her symptoms. She denies recent exacerbations. Her sleep study is essentially normal. [facility] Medical History (Updated 07/28/23 @ 11:21 by Tobias Disla MD) Chronic constipation History of colon polyps Internal hemorrhoids CVA (cerebral vascular accident) Abdominal pain Barretts esophagus Acid reflux Dyspnea Depression Anxiety Hypertension COPD (chronic obstructive pulmonary disease) Surgical History (Updated 07/26/23 @ 14:32 by Gabrielle Washington) Hx of colonoscopy History of esophagogastroduodenoscopy (EGD) H/O section History of appendectomy History of cholecystectomy Family History Mother Cancer Maternal Grandmother Cancer Social History Household Members: None Alcohol intake: never Patient Tobacco Use Status: Never used Tobacco Current occupational status: disabled Review of Systems Const Denies daytime sleepiness, Denies excessive sweating, Denies fatigue, Denies fever(s), Denies lethargy, Denies malaise, Denies night sweats, Denies snoring and Denies weight loss Eyes Denies blurry vision and Denies itchy eyes ENT Denies nasal congestion, Denies post nasal drip, Denies sinus pain, Denies sinus pressure and Denies other ( Thrush) Card Denies chest pain, Reports pedal edema, Denies dyspnea, Reports orthopnea and Denies paroxysmal nocturnal dyspnea Resp Denies cough, Denies hemoptysis, Denies excessive phlegm production, Denies dyspnea, Denies snoring and Denies wheezing GI Denies abdominal pain and Denies heartburn Musc Denies myalgias, Denies arthralgias and Denies joint swelling Skin/Breast Denies rash Neuro Denies memory loss and Denies seizure-like activity Psych Denies abnormal sleep pattern, Denies anxiety and Denies memory loss Endo Denies excessive sweating, Denies fatigue and Denies heat intolerance Zhen/Lymph Denies easy bruising Aller/Immun Denies itchy eyes, Denies seasonal rhinorrhea and Denies wheezing Physical Exam Vital Signs: Last Vital Signs Pulse 97 07/28/23 11:07 BP 134/68 07/28/23 11:07 Pulse Ox 97 07/28/23 11:07 Oxygen Delivery Method Room Air 07/28/23 11:07 BMI result Body Mass Index 34.6 Const General: no acute distress and alert Nutritional Appearance: not obese Orientation/consciousness: Other orientation findings ( oriented) HEENT Head: Yes atraumatic Eyes General: appearance normal, both eyes and all related structures Sclerae: sclerae normal EOM: EOMs intact bilaterally Neck Neck: Yes supple Lymphatic: no lymphadenopathy noted Resp Effort & Inspection: normal respiratory effort and no use of accessory muscles Auscultation: clear to auscultation bilaterally Cardio Rate: regular rate Rhythm: regular rhythm Heart sounds: no gallops, no murmurs and no rubs Skin General skin exam: other ( warm) Extrem General: No clubbing, No cyanosis and Yes edema (2+ bilateral) Assessment & Plan Assessment & Plan (1) COPD (chronic obstructive pulmonary disease): Code(s): J44.9 - Chronic obstructive pulmonary disease, unspecified Plan: Reasonably well controlled on Anoro and albuterol MDI. Continue current regimen. Results of sleep study reviewed, no underlying obstructive sleep apnea noted. (2) CKD (chronic kidney disease): Code(s): N18.9 - Chronic kidney disease, unspecified Plan: Slowly worsening creatinine. Lower extremity edema resistant to Bumex 1 mg daily. Will refer to Nephrology. (3) Nocturnal hypoxemia: Code(s): G47.34 - Idiopathic sleep related nonobstructive alveolar hypoventilation Plan: Continue nocturnal supplemental oxygen. Orders: Referrals Nephrology Referral N18.9 - Chronic kidney disease, unspecified Coding Level of Care Code Est Pt Level 4 (05213) Diagnoses COPD (chronic obstructive pulmonary disease) J44.9 CKD (chronic kidney disease) N18.9 Nocturnal hypoxemia G47.34
== END 2023-07-28 11:23 | disposition home or self-care (01) ==
PROVIDERS: PCP Internal Medicine; Referring Provider Internal Medicine; Visit Provider Internal Medicine Pulmonary Disease
DX: J44.9 Chronic obstructive pulmonary disease, unspecified (principal); N18.9 Chronic kidney disease, unspecified; G47.34 Idiopathic sleep related nonobstructive alveolar hypoventilation
CPT/HCPCS: 99214

== ENCOUNTER → 2023-07-28 11:05 | Outpatient (BNVA) | payer MEDICAID, SELFPAY | PROVIDERS: PCP Internal Medicine; Visit Provider Internal Medicine Pulmonary Disease | DX: J44.9 Chronic obstructive pulmonary disease, unspecified (principal); N18.9 Chronic kidney disease, unspecified; G47.34 Idiopathic sleep related nonobstructive alveolar hypoventilation; Z79.899 Other long term (current) drug therapy | CPT/HCPCS: 99212 ==

== ENCOUNTER 2023-08-17 14:37 | Outpatient (AMB) | payer MEDICAID, SELFPAY ==
[2023-08-17 14:54] VITALS: BP 110/60; PULSE 84; O2SAT 96; BMI 34.4
--- NOTE | 2023-08-17 14:54 | HO.NEPHOV_ITS ---
HPI HPI Comments History of Present Illness Details I would the pleasure of seeing Gabrielle in consultation for chronic kidney disease and hypertension. She has lot of arthritic issues and takes nonsteroidals as needed basis. She denies any coronary artery disease, co ngestive heart failure, carotid stenosis, CVA, renal artery stenosis or peripheral arterial disease. She has not a diabetic. She has longstanding hypertension and is on multiple antihypertensive medications. She denies any nausea vomiting or diarrhea, pedal edema, shortness of breath, paroxysmal nocturnal dyspnea, orthopnea, orthostatic symptoms, hematuria or urinary symptoms. Her recent serum creatinine has been 1.16. She has history of CVA. [facility] Medical History (Updated 08/17/23 @ 22:28 by Valdemar Doe MD) Chronic constipation History of colon polyps Internal hemorrhoids CVA (cerebral vascular accident) Abdominal pain Barretts esophagus Acid reflux Dyspnea Depression Anxiety Hypertension COPD (chronic obstructive pulmonary disease) Surgical History Hx of colonoscopy History of esophagogastroduodenoscopy (EGD) H/O section History of appendectomy History of cholecystectomy Family History Mother Cancer Maternal Grandmother Cancer Social History Household Members: None Alcohol intake: never Patient Tobacco Use Status: Never used Tobacco Current occupational status: disabled Vital Signs 08/17/23 14:54 Height 5 ft 2 in Weight 188 lb 2 oz BMI 34.4 BP 110/60 Blood Pressure Location Lt brachial Position Sitting Pulse 84 Pulse Source Pulse Oximeter Pulse Oximetry (%) 96 Oxygen Delivery Method Room Air Physical Exam Vital Signs: Last Vital Signs Pulse 84 08/17/23 14:54 BP 110/60 08/17/23 14:54 Pulse Ox 96 08/17/23 14:54 Oxygen Delivery Method Room Air 08/17/23 14:54 BMI result Body Mass Index 34.4 Const General: comfortable and no acute distress Orientation/consciousness: patient oriented x3 HEENT Head: Yes normocephalic Mouth: Normal oral and palatal mucosa present Eyes EOM: EOMs intact bilaterally Neck Neck: Yes supple Resp Auscultation: clear to auscultation bilaterally Cardio Jugular venous distension: no JVD Rate: regular rate GI Palpation (GI): Soft to palpation Auscultation: normal bowel sounds General: Yes no CVA tenderness Back/Spine/Pelvis Back: no CVA tenderness Skin General skin exam: no rashes or lesions noted Neuro General: patient oriented x3 and moves all extremities Extrem General: Yes no pedal edema Assessment & Plan Assessment & Plan (1) CKD (chronic kidney disease) stage 3, GFR 30-59 ml/min: Code(s): N18.30 - Chronic kidney disease, stage 3 unspecified Qualifiers: Chronic kidney disease stage 3 subtype: stage 3a (GFR 45-59) Qualified Code(s): N18.31 - Chronic kidney disease, stage 3a (2) Hypertension: Code(s): I10 - Essential (primary) hypertension Qualifiers: Hypertension type: primary hypertension Qualified Code(s): I10 - Essential (primary) hypertension Plan Gabrielle has CKD stage 3 due to vascular disease. She is hypertensive. Her blood pressure has been at goal. She is on multiple antihypertensive medications including verapamil, lisinopril and hydrochlorothiazide. I plan to do a Doppler of her renal arteries. Her renal functions are pretty stable. She is tolerating CLARY inhibitor. She does not have any significant proteinuria. She should avoid nonsteroidal anti-inflammatories and maintain good hydration. I have ordered follow-up blood work and urine studies. I did not make any medication changes today. Answered all questions. Follow-up lab studies ordered. Follow-up appointment given. Orders: Orders Electrolytes Today I10 - Essential (primary) hypertension, N18.30 - Chronic kidney disease, stage 3 unspecified Blood Urea Nitrogen Today I10 - Essential (primary) hypertension, N18.30 - Chronic kidney disease, stage 3 unspecified Creatinine Today I10 - Essential (primary) hypertension, N18.30 - Chronic kidney disease, stage 3 unspecified Immunofixation Pnl, Serum Today I10 - Essential (primary) hypertension, N18.30 - Chronic kidney disease, stage 3 unspecified Protein Creatinine Ratio, Ur Today I10 - Essential (primary) hypertension, N18.30 - Chronic kidney disease, stage 3 unspecified Calcium Today I10 - Essential (primary) hypertension, N18.30 - Chronic kidney disease, stage 3 unspecified Coding Level of Care Code New Pt Level 4 (71085) Diagnoses Stage 3a chronic kidney disease N18.31 Chronic kidney disease stage 3 subtype: stage 3a (GFR 45-59) Primary hypertension I10 Hypertension type: primary hypertension Results Reviewed Nephrology Results: Sodium 141 mmol/L (135-145) 06/17/23 Potassium 3.9 mmol/L (3.3-5.1) 06/17/23 Chloride 106 mmol/L (96-108) 06/17/23 Carbon Dioxide 27 mmol/L (22-29) 06/17/23 BUN 16 mg/dL (9-16) 06/17/23 Creatinine 1.16 mg/dL (0.5-1.4) 06/17/23 Calcium 9.7 mg/dL (8.4-10.2) 06/17/23 Phosphorus 2.3 mg/dL (2.7-4.5) L 06/17/23
== END 2023-08-17 16:00 | disposition home or self-care (01) ==
PROVIDERS: PCP Internal Medicine; Visit Provider Internal Medicine Nephrology
DX: N18.31 Chronic kidney disease, stage 3a (principal); I10 Essential (primary) hypertension
CPT/HCPCS: 99204

== ENCOUNTER → 2023-08-17 14:37 | Outpatient (BNVA) | payer MEDICAID, SELFPAY | PROVIDERS: PCP Internal Medicine; Visit Provider Internal Medicine Nephrology | DX: I12.9 Hypertensive chronic kidney disease with stage 1 through stage 4 chronic kidney disease, or unspecified chronic kidney disease (principal); N18.31 Chronic kidney disease, stage 3a | CPT/HCPCS: 99202 ==

== ENCOUNTER 2023-09-08 10:56 | Outpatient (AMB) | payer MEDICAID, SELFPAY ==
[2023-09-08 11:03] VITALS: BP 120/72; PULSE 83; O2SAT 97; BMI 33.7
--- NOTE | 2023-09-08 11:03 | A.OFFVIS_ITS ---
Intake Vital Signs 09/08/23 11:03 Height 5 ft 2 in Weight 184 lb 1.376 oz BMI 33.7 BP 120/72 Blood Pressure Location Rt brachial Position Sitting Pulse 83 Pulse Source Doppler Pulse Oximetry (%) 97 Oxygen Delivery Method Room Air Intake Visit Reasons: Asthma Allergies No Known Allergies [No Known Allergies*] Allergy (Verified 09/08/23 11:07) HPI Asthma HPI Details 62-year-old lady, former 60 pack year sm jose antonio, quit 12 years prior, with underlying history of diastolic heart failure, recent normal sleep study, now followed for nocturnal hypoxemia and COPD.? She has been using Anoro and albuterol MDI with reasonable control of her symptoms. Patient does complain of orthopnea, paroxysmal nocturnal dyspnea, and lower extremity edema. At the last office visit her Bumex was increased to twice a day for week with only modest improvement in her symptoms. She denies recent exacerbations. Her sleep study is essentially normal. Today patient had 6 minute walk/supplemental oxygen evaluation and she does not require supplemental oxygen to maintain normal oximetry with exertion, but it was noted that patient has significant tachycardia up to 180s with ambulation. [facility] Medical History (Updated 08/17/23 @ 22:28 by Valdemar Doe MD) Chronic constipation History of colon polyps Internal hemorrhoids CVA (cerebral vascular accident) Abdominal pain Barretts esophagus Acid reflux Dyspnea Depression Anxiety Hypertension COPD (chronic obstructive pulmonary disease) Surgical History Hx of colonoscopy History of esophagogastroduodenoscopy (EGD) H/O section History of appendectomy History of cholecystectomy Family History Mother Cancer Maternal Grandmother Cancer Social History Household Members: None Alcohol intake: never Patient Tobacco Use Status: Never used Tobacco Current occupational status: disabled Review of Systems Const Denies daytime sleepiness, Denies excessive sweating, Denies fatigue, Denies fever(s), Denies lethargy, Denies malaise, Denies night sweats, Denies snoring and Denies weight loss Eyes Denies blurry vision and Denies itchy eyes ENT Denies nasal congestion, Denies post nasal drip, Denies sinus pain, Denies sinus pressure and Denies other ( Thrush) Card Denies chest pain, Denies pedal edema, Denies dyspnea, Reports dyspnea on exertion, Denies orthopnea and Denies paroxysmal nocturnal dyspnea Resp Denies cough, Denies hemoptysis, Denies excessive phlegm production, Denies dyspnea, Reports dyspnea on exertion, Denies snoring and Denies wheezing GI Denies abdominal pain and Denies heartburn Musc Denies myalgias, Denies arthralgias and Denies joint swelling Skin/Breast Denies rash Neuro Denies memory loss and Denies seizure-like activity Psych Denies abnormal sleep pattern, Denies anxiety and Denies memory loss Endo Denies excessive sweating, Denies fatigue and Denies heat intolerance Zhen/Lymph Denies easy bruising Aller/Immun Denies itchy eyes, Denies seasonal rhinorrhea and Denies wheezing Physical Exam Vital Signs: Last Vital Signs Pulse 83 09/08/23 11:03 BP 120/72 09/08/23 11:03 Pulse Ox 97 09/08/23 11:03 Oxygen Delivery Method Room Air 09/08/23 11:03 BMI result Body Mass Index 33.7 Const General: no acute distress and alert Nutritional Appearance: not obese Orientation/consciousness: Other orientation findings ( oriented) HEENT Head: Yes atraumatic Eyes General: appearance normal, both eyes and all related structures Sclerae: sclerae normal EOM: EOMs intact bilaterally Neck Neck: Yes supple Lymphatic: no lymphadenopathy noted Resp Effort & Inspection: normal respiratory effort and no use of accessory muscles Auscultation: clear to auscultation bilaterally Cardio Rate: regular rate Rhythm: regular rhythm Heart sounds: no gallops, no murmurs and no rubs Skin General skin exam: other ( warm) Extrem General: No clubbing, No cyanosis and No edema Office Procedures 6 Minute Walk Time:: 11:35 SPO2 % at rest: 97 Pulse at rest: 85 SPO2 % during excercise: 96 Pulse during excercise: 177 SPO2 % after excercise: 96 Pulse after excercise: 97 Distance in yards walked: 50 Lopez Score: 6 Performance Observations:: Gabrielle walked on level ground with the assistance of a cane to her R hand. She walked for 50 yards before her HR increased to 177 bpm and became SOB, diaphoretic, and shaky. The walk was stopped and Gabrielle sat down, with rest her HR decreased to 88 bpm. MD aware. Gabrielle maintained her SPO2 96-97% on room air the entire walk. [id number] - 6 Minute Walk Assessment & Plan Assessment & Plan (1) Dyspnea on exertion: Code(s): R06.09 - Other forms of dyspnea Plan: Appears to be multifactorial, now with significant cardiac contribution resulting in tachycardia up to 180s with minimal walking. Patient to discuss results with her crm marketing specialist. Also her stress test is pending. (2) COPD (chronic obstructive pulmonary disease): Code(s): J44.9 - Chronic obstructive pulmonary disease, unspecified Plan: Controlled on current regimen of Anoro and albuterol MDI. Continue current regimen. Orders: Orders AMB 6 minute walk Today J44.9 - Chronic obstructive pulmonary disease, unspecified Coding Level of Care Code Est Pt Level 4 (09386) Diagnoses Dyspnea on exertion R06.09 COPD (chronic obstructive pulmonary disease) J44.9 CPT Codes Coding ([id number])
[2023-09-08 11:47] VITALS: PULSE 85; O2SAT 97
== END 2023-09-08 11:55 | disposition home or self-care (01) ==
PROVIDERS: PCP Internal Medicine; Visit Provider Internal Medicine Pulmonary Disease
DX: R06.09 Other forms of dyspnea (principal); J44.9 Chronic obstructive pulmonary disease, unspecified
CPT/HCPCS: 94618; 99214

== ENCOUNTER → 2023-09-08 10:56 | Outpatient (BNVA) | payer MEDICAID, SELFPAY | PROVIDERS: PCP Internal Medicine; Visit Provider Internal Medicine Pulmonary Disease | DX: J44.9 Chronic obstructive pulmonary disease, unspecified (principal); R06.09 Other forms of dyspnea; Z79.899 Other long term (current) drug therapy | CPT/HCPCS: 94618; 99212 ==

== ENCOUNTER 2023-10-04 10:52 | Outpatient (AMB) | payer MEDICAID, SELFPAY ==
--- NOTE | 2023-10-04 10:55 | MHC.OFFVIS ---
Intake Vital Signs 10/04/23 10:56 Height 5 ft 2 in Weight 175 lb 4.28 oz BMI 32.1 BP 102/64 Blood Pressure Location Rt brachial Position Sitting Pulse 100 Pulse Source Doppler Pulse Oximetry (%) 98 Oxygen Delivery Method Room Air Intake Visit Reasons: Asthma Phlebotomy Coordinator Required: Yes Phlebotomy Coordinator Name: Alena Montiel Anabell.LCuco Allergies No Known Allergies [No Known Allergies*] Allergy (Verified 10/04/23 11:01) HPI Asthma HPI Details 62-year-old lady, former 60 pack year smoker, quit 12 years prior, with underlying history of diastolic heart failure, recent normal sleep study, now followed for nocturnal hypoxemia and COPD.? She has been using Anoro and albuterol MDI with reasonable control of her symptoms. She also has significant underlying diastolic dysfunction with fluid, now well controlled on current dose of bumetanide. She denies recent acute exacerbations. [facility] Medical History (Updated 08/17/23 @ 22:28 by Valdemar Doe MD) Chronic constipation History of colon polyps Internal hemorrhoids CVA (cerebral vascular accident) Abdominal pain Barretts esophagus Acid reflux Dyspnea Depression Anxiety Hypertension COPD (chronic obstructive pulmonary disease) Surgical History Hx of colonoscopy History of esophagogastroduodenoscopy (EGD) H/O section History of appendectomy History of cholecystectomy Family History Mother Cancer Maternal Grandmother Cancer Social History Household Members: None Alcohol intake: never Patient Tobacco Use Status: Never used Tobacco Current occupational status: disabled Review of Systems Const Denies daytime sleepiness, Denies excessive sweating, Denies fatigue, Denies fever(s), Denies lethargy, Denies malaise, Denies night sweats, Denies snoring and Denies weight loss Eyes Denies blurry vision and Denies itchy eyes ENT Denies nasal congestion, Denies post nasal drip, Denies sinus pain, Denies sinus pressure and Denies other ( Thrush) Card Denies chest pain, Denies pedal edema, Denies dyspnea, Denies orthopnea and Denies paroxysmal nocturnal dyspnea Resp Denies cough, Denies hemoptysis, Denies excessive phlegm production, Denies dyspnea, Denies snoring and Denies wheezing GI Denies abdominal pain and Denies heartburn Musc Denies myalgias, Denies arthralgias and Denies joint swelling Skin/Breast Denies rash Neuro Denies memory loss and Denies seizure-like activity Psych Denies abnormal sleep pattern, Denies anxiety and Denies memory loss Endo Denies excessive sweating, Denies fatigue and Denies heat intolerance Zhen/Lymph Denies easy bruising Aller/Immun Denies itchy eyes, Denies seasonal rhinorrhea and Denies wheezing Physical Exam Vital Signs: Last Vital Signs Pulse 100 10/04/23 10:56 BP 102/64 10/04/23 10:56 Pulse Ox 98 10/04/23 10:56 Oxygen Delivery Method Room Air 10/04/23 10:56 BMI result Body Mass Index 32.1 Const General: no acute distress and alert Nutritional Appearance: not obese Orientation/consciousness: Other orientation findings ( oriented) HEENT Head: Yes atraumatic Eyes General: appearance normal, both eyes and all related structures Sclerae: sclerae normal EOM: EOMs intact bilaterally Neck Neck: Yes supple Lymphatic: no lymphadenopathy noted Resp Effort & Inspection: normal respiratory effort and no use of accessory muscles Auscultation: clear to auscultation bilaterally Cardio Rate: regular rate Rhythm: regular rhythm Heart sounds: no gallops, no murmurs and no rubs Skin General skin exam: other ( warm) Extrem General: No clubbing, No cyanosis and No edema Assessment & Plan Assessment & Plan (1) COPD (chronic obstructive pulmonary disease): Code(s): J44.9 - Chronic obstructive pulmonary disease, unspecified Plan: Reasonably well controlled on current regimen of Anoro and albuterol MDI. Continue current regimen. (2) Dyspnea on exertion: Code(s): R06.09 - Other forms of dyspnea Plan: Multifactorial with underlying contribution from pulmonary, cardiac, and deconditioning etiologies. Lower extremity edema now well controlled on Bumex 1 mg daily. Continue current regimen. Coding Level of Care Code Est Pt Level 4 (13697) Diagnoses COPD (chronic obstructive pulmonary disease) J44.9 Dyspnea on exertion R06.09
[2023-10-04 10:56] VITALS: BP 102/64; PULSE 100; O2SAT 98; BMI 32.1
== END 2023-10-04 11:14 | disposition home or self-care (01) ==
PROVIDERS: PCP Internal Medicine; Referring Provider Internal Medicine; Visit Provider Internal Medicine Pulmonary Disease
DX: J44.9 Chronic obstructive pulmonary disease, unspecified (principal); R06.09 Other forms of dyspnea
CPT/HCPCS: 99214

== ENCOUNTER → 2023-10-04 10:52 | Outpatient (BNVA) | payer MEDICAID, SELFPAY | PROVIDERS: PCP Internal Medicine; Visit Provider Internal Medicine Pulmonary Disease | DX: J44.9 Chronic obstructive pulmonary disease, unspecified (principal); R06.09 Other forms of dyspnea | CPT/HCPCS: 99212 ==

== ENCOUNTER 2023-10-07 12:49 | Outpatient (REF) | payer MEDICAID, SELFPAY ==
[2023-10-07 14:52] LABS: Anion Gap 13 (12-20); Blood Urea Nitrogen 21 mg/dL (9-16); Calcium 9.4 mg/dL (8.4-10.2); Carbon Dioxide 25 mmol/L (22-29); Chloride 108 mmol/L (96-108); Estimated Glomerular Filt Rate 58; Glucose Random 89 mg/dL (60-115); Magnesium 2.3 mg/dL (1.6-2.6); Phosphorus 2.3 mg/dL (2.7-4.5); Potassium 4.2 mmol/L (3.3-5.1); Sodium 142 mmol/L (135-145)
== END 2023-10-07 12:50 | disposition home or self-care (01) ==
LOC: HO.HHCL 12:49
PROVIDERS: Visit Provider Internal Medicine
DX: N17.9 Acute kidney failure, unspecified (principal)
CPT/HCPCS: 36415; 80048; 83735; 84100

== ENCOUNTER 2023-10-17 10:38 | Outpatient (REF) | payer MEDICAID, SELFPAY ==
--- NOTE | ~2023-10-17 | US_ITS ---
EXAMINATION: ULTRASOUND RENAL WITH DOPPLER CLINICAL INFORMATION: Chronic kidney disease, rule out renal artery stenosis. COMPARISON: CT abdomen and pelvis 02/28/2019. TECHNIQUE: Real-time grayscale, color Doppler, and duplex Doppler evaluation of the kidneys and renal vasculature was performed. FINDINGS: RENAL MEASUREMENTS: Right: 11.1 x 6.2 x 4.1 cm (Sag x AP x TV) Left: 11.8 x 5.0 x 4.7 cm (Sag x AP x TV) The renal parenchyma appears normal. Bilateral extrarenal pelves similar to prior CT scan. No hydronephrosis or nephrolithiasis. DOPPLER INTERROGATION: AORTA: Mid aorta: 68 cm/sec RIGHT MAIN RENAL ARTERY: Proximal: 140 cm/sec Mid: 160 cm/sec Distal: 112 cm/sec LEFT MAIN RENAL ARTERY: Proximal: 84 cm/sec Mid: 151 cm/sec Distal: 115 cm/sec RENAL-AORTIC RATIO (RAR): Right: 2.3 Left: 2.2 SEGMENTAL RESISTIVE INDICES: Right: 0.67-0.71 Left: 0.64-0.72 RENAL VEINS: Right: Patent with normal waveform. Left: Patent with normal waveform. US/US renal doppler IMPRESSION: No evidence of hemodynamically significant renal artery stenosis. No hydronephrosis.
--- NOTE | ~2023-10-17 | US_ITS ---
EXAMINATION: ULTRASOUND RENAL WITH DOPPLER CLINICAL INFORMATION: Chronic kidney disease, rule out renal artery stenosis. COMPARISON: CT abdomen and pelvis 02/28/2019. TECHNIQUE: Real-time grayscale, color Doppler, and duplex Doppler evaluation of the kidneys and renal vasculature was performed. FINDINGS: RENAL MEASUREMENTS: Right: 11.1 x 6.2 x 4.1 cm (Sag x AP x TV) Left: 11.8 x 5.0 x 4.7 cm (Sag x AP x TV) The renal parenchyma appears normal. Bilateral extrarenal pelves similar to prior CT scan. No hydronephrosis or nephrolithiasis. DOPPLER INTERROGATION: AORTA: Mid aorta: 68 cm/sec RIGHT MAIN RENAL ARTERY: Proximal: 140 cm/sec Mid: 160 cm/sec Distal: 112 cm/sec LEFT MAIN RENAL ARTERY: Proximal: 84 cm/sec Mid: 151 cm/sec Distal: 115 cm/sec RENAL-AORTIC RATIO (RAR): Right: 2.3 Left: 2.2 SEGMENTAL RESISTIVE INDICES: Right: 0.67-0.71 Left: 0.64-0.72 RENAL VEINS: Right: Patent with normal waveform. Left: Patent with normal waveform. US/US renal BI IMPRESSION: No evidence of hemodynamically significant renal artery stenosis. No hydronephrosis.
== END 2023-10-17 10:39 | disposition home or self-care (01) ==
LOC: HO.US 10:38
PROVIDERS: PCP Internal Medicine; Visit Provider Internal Medicine Nephrology
DX: I12.9 Hypertensive chronic kidney disease with stage 1 through stage 4 chronic kidney disease, or unspecified chronic kidney disease (principal); N18.30 Chronic kidney disease, stage 3 unspecified
CPT/HCPCS: 76775; 93975

== ENCOUNTER 2023-11-03 09:52 | Outpatient (REF) | payer MEDICAID, SELFPAY ==
[2023-11-03 11:20] LABS: Anion Gap 15 (12-20); Blood Urea Nitrogen 24 mg/dL (9-16); Calcium 9.5 mg/dL (8.4-10.2); Carbon Dioxide 27 mmol/L (22-29); Chloride 104 mmol/L (96-108); Estimated Glomerular Filt Rate 43; Phosphorus 3.3 mg/dL (2.7-4.5); Potassium 3.9 mmol/L (3.3-5.1); Sodium 142 mmol/L (135-145)
[2023-11-03 11:23] LABS: Creatinine Urine 95.25 mg/dL; Total Protein Urine Random 10 mg/dL (<12)
[2023-11-07 20:28] LABS: IgA 206 mg/dL (70-320); IgG 887 mg/dL (600-1540); IgM 188 mg/dL (50-300)
== END 2023-11-03 09:53 | disposition home or self-care (01) ==
LOC: HO.LAB 09:52
PROVIDERS: PCP Internal Medicine; Visit Provider Internal Medicine Nephrology
DX: N18.30 Chronic kidney disease, stage 3 unspecified (principal); I10 Essential (primary) hypertension; E83.39 Other disorders of phosphorus metabolism
CPT/HCPCS: 36415; 80051; 82310; 82565; 82570; 82784; 84100; 84156; 84520; 86334

== ENCOUNTER 2023-11-11 11:59 | Outpatient (AMB) | payer MEDICAID, SELFPAY ==
[2023-11-11 12:05] VITALS: BP 106/56; PULSE 90; O2SAT 95; BMI 32.4
--- NOTE | 2023-11-11 12:05 | HO.NEPHOV ---
Vital Signs 11/11/23 12:05 Height 5 ft 2 in Weight 177 lb BMI 32.4 BP 106/56 L Blood Pressure Location Lt brachial Position Sitting Pulse 90 Pulse Source Pulse Oximeter Pulse Oximetry (%) 95 Oxygen Delivery Method Room Air Intake Visit Reasons: 3 mo fu CKD/ Confirmed Tar Heat Exchanger Cleaner Required: Yes Tar Heat Exchanger Cleaner Name: Shawna [id number] Accompanied by: Self / Same As Patient Allergies No Known Allergies [No Known Allergies*] Allergy (Verified 11/11/23 12:07) HPI Comments Details: I would the pleasure of seeing Gabrielle in follow up for chronic kidney disease and hypertension. She recently had COVID infection with resultant MUSHTAQ. She has lot of arthritic issues and takes nonsteroidals as needed basis. She denies any coronary artery disease, congestive heart failure, carotid stenosis, CVA, renal artery stenosis or peripheral arterial disease. She has not a diabetic. She has longstanding hypertension and is on multiple antihypertensive medications. She denies any nausea vomiting or diarrhea, pedal edema, shortness of breath, paroxysmal nocturnal dyspnea, orthopnea, orthostatic symptoms, hematuria or urinary symptoms. Her recent serum creatinine has gone up from baseline. She has history of CVA. [facility] Medical History (Updated 11/11/23 @ 13:26 by Valdemar Doe MD) Chronic constipation History of colon polyps Internal hemorrhoids CVA (cerebral vascular accident) Abdominal pain Barretts esophagus Acid reflux Dyspnea Depression Anxiety Hypertension COPD (chronic obstructive pulmonary disease) Surgical History Hx of colonoscopy History of esophagogastroduodenoscopy (EGD) H/O section History of appendectomy History of cholecystectomy Family History Mother Cancer Maternal Grandmother Cancer Social History Household Members: None Alcohol intake: never Patient Tobacco Use Status: Never used Tobacco Current occupational status: disabled Physical Exam Vital Signs: Last Vital Signs Pulse 90 11/11/23 12:05 BP 106/56 L 11/11/23 12:05 Pulse Ox 95 11/11/23 12:05 Oxygen Delivery Method Room Air 11/11/23 12:05 BMI result Body Mass Index 32.4 Const General: comfortable and no acute distress Orientation/consciousness: patient oriented x3 HEENT Head: Yes normocephalic Mouth: Normal oral and palatal mucosa present Eyes EOM: EOMs intact bilaterally Neck Neck: Yes supple Resp Auscultation: clear to auscultation bilaterally Cardio Jugular venous distension: no JVD Rate: regular rate GI Palpation (GI): Soft to palpation Auscultation: normal bowel sounds General: Yes no CVA tenderness Back/Spine/Pelvis Back: no CVA tenderness Skin General skin exam: no rashes or lesions noted Neuro General: patient oriented x3 and moves all extremities Extrem General: Yes no pedal edema Results Reviewed Nephrology Results: Sodium 142 mmol/L (135-145) 11/03/23 Potassium 3.9 mmol/L (3.3-5.1) 11/03/23 Chloride 104 mmol/L (96-108) 11/03/23 Carbon Dioxide 27 mmol/L (22-29) 11/03/23 BUN 24 mg/dL (9-16) H 11/03/23 Creatinine 1.26 mg/dL (0.5-1.4) 11/03/23 Calcium 9.5 mg/dL (8.4-10.2) 11/03/23 Phosphorus 3.3 mg/dL (2.7-4.5) 11/03/23 Urine Creatinine 95.25 mg/dL 11/03/23 Protein/Creatinin Ratio 0.10 (<0.2) 11/03/23 Renal US 10/17/23 Assessment & Plan Assessment & Plan (1) CKD (chronic kidney disease) stage 3, GFR 30-59 ml/min: Code(s): N18.30 - Chronic kidney disease, stage 3 unspecified Category: Medical Qualifiers: Chronic kidney disease stage 3 subtype: stage 3a (GFR 45-59) Qualified Code(s): N18.31 - Chronic kidney disease, stage 3a (2) Hypertension: Code(s): I10 - Essential (primary) hypertension Category: Medical Qualifiers: Hypertension type: primary hypertension Qualified Code(s): I10 - Essential (primary) hypertension (3) Acute kidney injury: Code(s): N17.9 - Acute kidney failure, unspecified Category: Medical Plan Gabrielle recently had MUSHTAQ due to tubular injury while having COVID. Her serum creatinine has plateaued but has not gotten back to baseline. She has CKD stage 3 due to vascular disease. She is hypertensive. Her blood pressure has been at goal. She is on multiple antihypertensive medications including verapamil, lisinopril and hydrochlorothiazide. I plan to do a Doppler of her renal arteries with. She is tolerating CLARY inhibitor. She does not have any significant proteinuria. She should avoid nonsteroidal anti-inflammatories and maintain good hydration. I have ordered follow-up blood work . I did not make any medication changes today. Answered all questions. Follow-up lab studies ordered. Follow-up appointment given. Orders: Orders Blood Urea Nitrogen Today I10 - Essential (primary) hypertension, N18.31 - Chronic kidney disease, stage 3a Creatinine Today I10 - Essential (primary) hypertension, N18.31 - Chronic kidney disease, stage 3a Electrolytes Today I10 - Essential (primary) hypertension, N18.31 - Chronic kidney disease, stage 3a Coding Level of Care Code Est Pt Level 4 (17636) Diagnoses Stage 3a chronic kidney disease N18.31 Chronic kidney disease stage 3 subtype: stage 3a (GFR 45-59) Primary hypertension I10 Hypertension type: primary hypertension Acute kidney injury N17.9
== END 2023-11-11 12:27 | disposition home or self-care (01) ==
PROVIDERS: PCP Internal Medicine; Referring Provider Internal Medicine; Visit Provider Internal Medicine Nephrology
DX: N18.31 Chronic kidney disease, stage 3a (principal); I10 Essential (primary) hypertension; N17.9 Acute kidney failure, unspecified
CPT/HCPCS: 99214

== ENCOUNTER → 2023-11-11 11:59 | Outpatient (BNVA) | payer MEDICAID, SELFPAY | PROVIDERS: PCP Internal Medicine; Visit Provider Internal Medicine Nephrology | DX: I12.9 Hypertensive chronic kidney disease with stage 1 through stage 4 chronic kidney disease, or unspecified chronic kidney disease (principal); N18.31 Chronic kidney disease, stage 3a; N17.9 Acute kidney failure, unspecified | CPT/HCPCS: 99212 ==

== ENCOUNTER 2023-11-28 13:47 | Outpatient (AMB) | payer MEDICAID, SELFPAY ==
--- NOTE | 2023-11-28 13:49 | A.OFFVIS_ITS ---
Vital Signs 11/28/23 13:55 Height 5 ft 2 in Weight 176 lb BMI 32.2 BP 109/56 L Blood Pressure Location Rt brachial Position Sitting Pulse 75 Pulse Source Pulse Oximeter Pulse Oximetry (%) 98 Oxygen Delivery Method Room Air Intake Visit Reasons: Back pain Intake Note: Pain today 01/03 Newspaper Copy Editor Required: Yes Newspaper Copy Editor Language: Diesel Engine I Pipe Fitter Name: Jorgito #[id number] Accompanied by: Self / Same As Patient Allergies No Known Allergies [No Known Allergies*] Allergy (Verified 11/28/23 13:56) HPI Comments Details: Patient presents today for follow up with worsening chronic right sided low back pain that radiates into her right buttock and lateral right hip to the knee level. We were planning for right diagnostic sacroiliac joint injection back in May 2023 but due to anticoagulation patient was not able to pause Plavix at that time. She reports stopping Plavix ~3 months ago and would like to start treatments to address her pain. She was told to avoid NSAIDs due to CKD Stage 3a with recent history of COVID infection with resultant MUSHTAQ per Nephrology notes review. Patient takes tramadol and gabapentin with continued symptoms. Pain affects her daily functioning, activities, mobility and sleep. Patient denies any bladder or bowel incontinence or saddle anesthesia. Past Procedures: 02/24/23: Right L4 Sprint PNS-60% pain relief, removed 04/25/23 02/10/23: Left L4 Sprint PNS-70% pain relief, removed 03/15/23 12/14/22: Bilateral L3-L4- DRL5 Diagnostic MBBs ? 100% relief for 4 days. PRIOR: Pain is a pleasant 61-year-old Palauan-speaking female with prior history of L5 fracture in 2008 and lumbar degenerative disc disease presents today for initial evaluation of low back pain. Denies any recent trauma, injury, or falls. Her back pain presents as mostly axial is occasional radiation of pain into her right buttock and posterior leg and at times anterior lower leg. Here pain has been getting progressively worse over the past 2 months and she reports experiencing excruciating and debilitating pain the last 2 weeks. Patient reports completing physical therapy which has increased her pain. Lumbar extension significantly increases her pain, bending or flexion forward reproduces minimal pain. Pain affects her daily activities, functioning, sleep, mood, and social interactions. She has been managing her pain is gabapentin, ibuprofen, and heat therapy is continued symptoms. Reports occasional weakness in her legs which necessitates the use of walker. Denies any fever, weight changes, abdominal or groin pain, bladder or bowel incontinence, or saddle anesthesia. Location Axial low back pain with intermittent radicular pain Duration Chronic back pain, worsening over the past 2 months Characteristics of symptom or complaint Pulsing, throbbing, sharp, aching, cramping, dull, sore, hurting, heavy Aggravating or associated factors Walking, sitting, standing, changing positions, Relieving factors Heat pad or showers, gabapentin, ibuprofen Treatment PT-no relief, worsening of pain PFSH Medical History Chronic constipation History of colon polyps Internal hemorrhoids CVA (cerebral vascular accident) Abdominal pain Barretts esophagus Acid reflux Dyspnea Depression Anxiety Hypertension COPD (chronic obstructive pulmonary disease) Surgical History Hx of colonoscopy History of esophagogastroduodenoscopy (EGD) H/O section History of appendectomy History of cholecystectomy Family History Mother Cancer Maternal Grandmother Cancer Social History Household Members: None Alcohol intake: never Patient Tobacco Use Status: Never used Tobacco Current occupational status: disabled Review of Systems Const All systems reviewed & are unremarkable except as noted in HPI and below Physical Exam Vital Signs: Last Vital Signs Pulse 75 11/28/23 13:55 BP 109/56 L 11/28/23 13:55 Pulse Ox 98 11/28/23 13:55 Oxygen Delivery Method Room Air 11/28/23 13:55 BMI result Body Mass Index 32.2 General: Appears afebrile. Alert and oriented. Mood and affect appropriate. Follows and participates in conversation appropriately. Respiratory effort is unlabored. Able to transition from sit to stand unassisted. Uses cane with ambulation. Ambulates with bilaterally normal heel strike and toe off. General: Yes no CVA tenderness Back/Spine/Pelvis Other: Limited lumbar ROM due to pain. Lumbar extension and flexion reproduces mild to moderate pain. Painful facet loading bilaterally. Localized tenderness in the projection of right sacroiliac joint. +Robert sign. Stinchfield, Kraig?s test, and pelvic compression positive on the right. Back: no CVA tenderness Cervical Spine: cervical ROM normal and No Cervical spine tenderness Thoracic/Lumbar Spine: thoracic and lumbar spine normal to inspection, No Thoracic/lumbar spine scar(s), Lasegue's sign negative, straight leg raise negative bilaterally, paraspinal muscle tenderness on the right greater than left, thoraco-lumbar ROM limited, No thoracic spinal tenderness and lumbar spinal tenderness at L4 and at L5 Pelvis: buttock tenderness on the right Sacroiliac joints: on the right tender to palpation and on the left nontender Results Reviewed Results Reviewed: XR LUMBOSACRAL SPINE WITH OBLIQUES 05/30/23 CLINICAL INFORMATION: Pain COMPARISON: 10/27/2022 MRI and radiograph from 08/09/2018 FINDINGS: There is chronic deformity of the superior endplate of L5 most likely related to remote fracture and mild narrowing of L4-L5 intervertebral disc space. There is no instability or neuroforaminal narrowing. There is facets arthropathy at the level of L4-L5 and L5-S1. The paraspinal soft tissues are normal. IMPRESSION: Mild compression deformity of L5 unchanged since previous studies in facets arthropathy. Mild narrowing of L4-L5 intervertebral disc spaces without instability. XR BILATERAL HIPS WITH AP PELVIS 05/30/23 CLINICAL INFORMATION: Pain in right hip COMPARISON: 02/06/2018 FINDINGS: No fracture. Hip joint spaces are maintained. Alignment is anatomic. Sacroiliac joints and pubic symphysis are normal. No abnormal soft tissue calcifications. IMPRESSION: Normal pelvis and hips. MR LUMBAR SPINE WITHOUT CONTRAST 10/27/22 FINDINGS: The lumbar vertebral bodies normal alignment. There is chronic superior endplate compression fracture at L5 with 60% height loss centrally. No retropulsion. There is no significant disc height loss. No bone marrow edema is seen. The distal spinal cord appears normal. The conus medullaris terminates normally at the L1-L2 level. The extraspinal soft tissues are within normal limits. SPINAL LEVELS: L1-L2: No posterior disc abnormality. No spinal canal or neural foraminal stenosis. L2-L3: No posterior disc abnormality. No spinal canal or neural foraminal stenosis. L3-L4: No posterior disc abnormality. No spinal canal or neural foraminal stenosis. L4-L5: Minimal disc bulging with mild facet arthropathy. No spinal canal stenosis. Mild narrowing of the bilateral neural foramina. L5-S1: Mild disc bulging with moderate facet arthropathy. No spinal canal stenosis. Mild narrowing of the bilateral neural foramina. IMPRESSION: No significant narrowing of the spinal canal or neural foramina. Chronic superior endplate compression fracture at L5. Assessment & Plan Assessment & Plan (1) Lumbar degenerative disc disease: Code(s): M51.36 - Other intervertebral disc degeneration, lumbar region Category: Medical (2) Lumbosacral spondylosis: Code(s): M47.817 - Spondylosis without myelopathy or radiculopathy, lumbosacral region Category: Medical (3) Chronic pain syndrome: Code(s): G89.4 - Chronic pain syndrome Category: Medical (4) Sacroiliac joint pain: Code(s): M53.3 - Sacrococcygeal disorders, not elsewhere classified Category: Medical Plan Schedule Right Diagnostic Sacroiliac Joint Injection with local and fluoroscopy as previously planned. Previously discussed peripheral nerve stimulation with Curonix trial, SI joint fusion, and RFA procedures if positive response. Patient is hesitant towards any implants but will consider injections and RFA. Patient has history of L5 compression fracture and is not candidate for steroid injections. Will confirm with PCP office that patient is no longer on Plavix prior to procedure. All questions were answered and the patient is in agreement with the plan. Follow up after injections and sooner as needed. Justification for interventional therapy: ? Patient with average pain > 6/10 ? Patient has exhausted conservative therapy, NSAIDs, opioid medication, physical therapy The risks, consequences, alternatives, and benefits of various treatment options were discussed with the patient in great detail, including conservative management, injections and procedures. Coding Level of Care Code Est Pt Level 4 (24396) Diagnoses Lumbar degenerative disc disease M51.36 Lumbosacral spondylosis M47.817 Chronic pain syndrome G89.4 Sacroiliac joint pain M53.3
[2023-11-28 13:55] VITALS: BP 109/56; PULSE 75; O2SAT 98; BMI 32.2
== END 2023-11-28 14:06 | disposition home or self-care (01) ==
PROVIDERS: PCP Internal Medicine; Visit Provider Nurse Practitioner Family
DX: M51.36 Other intervertebral disc degeneration, lumbar region (principal); M47.817 Spondylosis without myelopathy or radiculopathy, lumbosacral region; G89.4 Chronic pain syndrome; M53.3 Sacrococcygeal disorders, not elsewhere classified
CPT/HCPCS: 99214

== ENCOUNTER → 2023-11-28 13:47 | Outpatient (BNVA) | payer MEDICAID, SELFPAY | PROVIDERS: PCP Internal Medicine; Visit Provider Nurse Practitioner Family | DX: M51.36 Other intervertebral disc degeneration, lumbar region (principal); M47.817 Spondylosis without myelopathy or radiculopathy, lumbosacral region; G89.4 Chronic pain syndrome; M53.3 Sacrococcygeal disorders, not elsewhere classified | CPT/HCPCS: 99212 ==

== ENCOUNTER 2023-12-01 11:01 | Outpatient (AMB) | payer MEDICARE, MEDICAID, SELFPAY ==
[2023-12-01 11:04] VITALS: BP 110/67; PULSE 88; O2SAT 97; BMI 32.5
--- NOTE | 2023-12-01 11:04 | MHC.OFFVIS ---
Vital Signs 12/01/23 11:04 Height 5 ft 2 in Weight 177 lb 7.554 oz BMI 32.5 BP 110/67 Blood Pressure Location Rt brachial Position Sitting Pulse 88 Pulse Source Doppler Pulse Oximetry (%) 97 Oxygen Delivery Method Room Air Intake Visit Reasons: Asthma follow-up Quality Improvement Analyst Required: Yes Quality Improvement Analyst Name: Alena Montiel Octavio Allergies No Known Allergies [No Known Allergies*] Allergy (Verified 12/01/23 11:08) HPI HPI Asthma follow-up: Details: 62-year-old lady, former 60 pack year smoker, quit 12 years prior, with underlying history of diastolic heart failure, recent normal sleep study, now followed for nocturnal hypoxemia and COPD.? She has been using Anoro and albuterol MDI with reasonable control of her symptoms. She also has significant underlying diastolic dysfunction with fluid, now well controlled on current dose of bumetanide. She denies recent acute exacerbations. no significant changes since prior. [facility], [facility] Medical History Chronic constipation History of colon polyps Internal hemorrhoids CVA (cerebral vascular accident) Abdominal pain Barretts esophagus Acid reflux Dyspnea Depression Anxiety Hypertension COPD (chronic obstructive pulmonary disease) Surgical History Hx of colonoscopy History of esophagogastroduodenoscopy (EGD) H/O section History of appendectomy History of cholecystectomy Family History Mother Cancer Maternal Grandmother Cancer Social History Household Members: None Alcohol intake: never Patient Tobacco Use Status: Never used Tobacco Current occupational status: disabled Review of Systems Const Denies daytime sleepiness, Denies excessive sweating, Denies fatigue, Denies fever(s), Denies lethargy, Denies malaise, Denies night sweats, Denies snoring and Denies weight loss Eyes Denies blurry vision and Denies itchy eyes ENT Denies nasal congestion, Denies post nasal drip, Denies sinus pain, Denies sinus pressure and Denies other ( Thrush) Card Denies chest pain, Denies pedal edema, Denies dyspnea, Denies orthopnea and Denies paroxysmal nocturnal dyspnea Resp Denies cough, Denies hemoptysis, Denies excessive phlegm production, Denies dyspnea, Denies snoring and Denies wheezing GI Denies abdominal pain and Denies heartburn Musc Denies myalgias, Denies arthralgias and Denies joint swelling Skin/Breast Denies rash Neuro Denies memory loss and Denies seizure-like activity Psych Denies abnormal sleep pattern, Denies anxiety and Denies memory loss Endo Denies excessive sweating, Denies fatigue and Denies heat intolerance Zhen/Lymph Denies easy bruising Aller/Immun Denies itchy eyes, Denies seasonal rhinorrhea and Denies wheezing Physical Exam Vital Signs: Last Vital Signs Pulse 88 12/01/23 11:04 BP 110/67 12/01/23 11:04 Pulse Ox 97 12/01/23 11:04 Oxygen Delivery Method Room Air 12/01/23 11:04 BMI result Body Mass Index 32.5 Const General: no acute distress and alert Nutritional Appearance: not obese Orientation/consciousness: Other orientation findings ( oriented) HEENT Head: Yes atraumatic Eyes General: appearance normal, both eyes and all related structures Sclerae: sclerae normal EOM: EOMs intact bilaterally Neck Neck: Yes supple Lymphatic: no lymphadenopathy noted Resp Effort & Inspection: normal respiratory effort and no use of accessory muscles Auscultation: clear to auscultation bilaterally Cardio Rate: regular rate Rhythm: regular rhythm Heart sounds: no gallops, no murmurs and no rubs Skin General skin exam: other ( warm) Extrem General: No clubbing, No cyanosis and Yes edema ( Trace bilateral) Assessment & Plan Assessment & Plan (1) COPD (chronic obstructive pulmonary disease): Code(s): J44.9 - Chronic obstructive pulmonary disease, unspecified Category: Medical Plan: well controlled on current regimen of Anoro and albuterol MDI. Continue current regimen. (2) Dyspnea on exertion: Code(s): R06.09 - Other forms of dyspnea Category: Medical Plan: Well controlled on Bumex 1 mg daily. Continue current regimen. Coding Level of Care Code Est Pt Level 4 (91634) Diagnoses COPD (chronic obstructive pulmonary disease) J44.9 Dyspnea on exertion R06.09
== END 2023-12-01 11:17 | disposition home or self-care (01) ==
PROVIDERS: PCP Internal Medicine; Visit Provider Internal Medicine Pulmonary Disease
DX: J44.9 Chronic obstructive pulmonary disease, unspecified (principal); R06.09 Other forms of dyspnea
CPT/HCPCS: 99214

== ENCOUNTER → 2023-12-01 11:01 | Outpatient (BNVA) | payer MEDICARE, MEDICAID, SELFPAY | PROVIDERS: PCP Internal Medicine; Visit Provider Internal Medicine Pulmonary Disease | DX: J44.9 Chronic obstructive pulmonary disease, unspecified (principal); R06.09 Other forms of dyspnea | CPT/HCPCS: 99212 ==

== ENCOUNTER 2024-01-09 12:05 | Outpatient (REF) | payer MEDICAID, SELFPAY ==
[2024-01-09 14:19] LABS: Anion Gap 14 (12-20); Blood Urea Nitrogen 18 mg/dL (9-16); Carbon Dioxide 27 mmol/L (22-29); Chloride 103 mmol/L (96-108); Estimated Glomerular Filt Rate 41; Potassium 4.2 mmol/L (3.3-5.1); Sodium 140 mmol/L (135-145)
== END 2024-01-09 12:06 | disposition home or self-care (01) ==
LOC: HO.LAB 12:05
PROVIDERS: PCP Internal Medicine; Visit Provider Internal Medicine Nephrology
DX: I12.9 Hypertensive chronic kidney disease with stage 1 through stage 4 chronic kidney disease, or unspecified chronic kidney disease (principal); N18.31 Chronic kidney disease, stage 3a
CPT/HCPCS: 36415; 80051; 82565; 84520

== ENCOUNTER 2024-01-18 10:25 | Outpatient (AMB) | payer MEDICARE, MEDICAID, SELFPAY ==
[2024-01-18 10:31] VITALS: BP 96/62; BMI 32.4
--- NOTE | 2024-01-18 10:31 | HO.NEPHOV ---
Vital Signs 01/18/24 10:31 Height 5 ft 2 in Weight 177 lb 4 oz BMI 32.4 BP 96/62 Blood Pressure Location Rt brachial Position Sitting Intake Visit Reasons: 2 mo fu w/ labs/ Conf Industrial Insulator Required: Yes Industrial Insulator Services: Industrial Insulator Present Industrial Insulator Name: Jadiel [id number] Accompanied by: Self / Same As Patient Allergies No Known Allergies [No Known Allergies*] Allergy (Verified 01/18/24 10:33) HPI Comments Details: I had the pleasure of seeing Gabrielle in follow up for chronic kidney disease and hypertension. She recently had COVID infection with resultant MUSHTAQ. She has lot of arthritic issues and takes nonsteroidals as needed basis. She denies any coronary artery disease, congestive heart failure, carotid stenosis, CVA, renal artery stenosis or peripheral arterial disease. She has not a diabetic. She has longstanding hypertension and is on multiple antihypertensive medications. She denies any nausea vomiting or diarrhea, pedal edema, shortness of breath, paroxysmal nocturnal dyspnea, orthopnea, orthostatic symptoms, hematuria or urinary symptoms. Her recent serum creatinine has gone up from baseline. She has history of CVA. [facility] Medical History Chronic constipation History of colon polyps Internal hemorrhoids CVA (cerebral vascular accident) Abdominal pain Barretts esophagus Acid reflux Dyspnea Depression Anxiety Hypertension COPD (chronic obstructive pulmonary disease) Surgical History Hx of colonoscopy History of esophagogastroduodenoscopy (EGD) H/O section History of appendectomy History of cholecystectomy Family History Mother Cancer Maternal Grandmother Cancer Social History Household Members: None Alcohol intake: never Patient Tobacco Use Status: Never used Tobacco Current occupational status: disabled Physical Exam Vital Signs: Last Vital Signs BP 96/62 01/18/24 10:31 BMI result Body Mass Index 32.4 Const General: comfortable and no acute distress Orientation/consciousness: patient oriented x3 HEENT Head: Yes normocephalic Mouth: Normal oral and palatal mucosa present Eyes EOM: EOMs intact bilaterally Neck Neck: Yes supple Resp Auscultation: clear to auscultation bilaterally Cardio Jugular venous distension: no JVD Rate: regular rate GI Palpation (GI): Soft to palpation Auscultation: normal bowel sounds General: Yes no CVA tenderness Back/Spine/Pelvis Back: no CVA tenderness Skin General skin exam: no rashes or lesions noted Neuro General: patient oriented x3 and moves all extremities Extrem General: Yes no pedal edema Results Reviewed Nephrology Results: Sodium 140 mmol/L (135-145) 01/09/24 Potassium 4.2 mmol/L (3.3-5.1) 01/09/24 Chloride 103 mmol/L (96-108) 01/09/24 Carbon Dioxide 27 mmol/L (22-29) 01/09/24 BUN 18 mg/dL (9-16) H 01/09/24 Creatinine 1.31 mg/dL (0.5-1.4) 01/09/24 Calcium 9.5 mg/dL (8.4-10.2) 11/03/23 Phosphorus 3.3 mg/dL (2.7-4.5) 11/03/23 Urine Creatinine 95.25 mg/dL 11/03/23 Protein/Creatinin Ratio 0.10 (<0.2) 11/03/23 Renal US 10/17/23 Assessment & Plan Assessment & Plan (1) Hypertension: Code(s): I10 - Essential (primary) hypertension Category: Medical Qualifiers: Hypertension type: primary hypertension Qualified Code(s): I10 - Essential (primary) hypertension (2) CKD (chronic kidney disease) stage 3, GFR 30-59 ml/min: Code(s): N18.30 - Chronic kidney disease, stage 3 unspecified Category: Medical Qualifiers: Chronic kidney disease stage 3 subtype: stage 3a (GFR 45-59) Qualified Code(s): N18.31 - Chronic kidney disease, stage 3a Plan Gabrielle recently had MUSHTAQ due to tubular injury while having COVID which has resolved. Her serum creatinine is close to baseline. She has CKD stage 3 due to vascular disease. She is hypertensive. Her blood pressure has been at goal. She is on multiple antihypertensive medications including verapamil, lisinopril and hydrochlorothiazide. I plan to do a Doppler of her renal arteries with. She is tolerating CLARY inhibitor. She does not have any significant proteinuria. She should avoid nonsteroidal anti-inflammatories and maintain good hydration. I did not make any medication changes today. Answered all questions. Follow-up lab studies ordered. Follow-up appointment given. Orders: Orders Creatinine Today I10 - Essential (primary) hypertension, N18.31 - Chronic kidney disease, stage 3a Electrolytes Today I10 - Essential (primary) hypertension, N18.31 - Chronic kidney disease, stage 3a Blood Urea Nitrogen Today I10 - Essential (primary) hypertension, N18.31 - Chronic kidney disease, stage 3a Calcium Today I10 - Essential (primary) hypertension, N18.31 - Chronic kidney disease, stage 3a Coding Level of Care Code Est Pt Level 4 (84931) Diagnoses Primary hypertension I10 Hypertension type: primary hypertension Stage 3a chronic kidney disease N18.31 Chronic kidney disease stage 3 subtype: stage 3a (GFR 45-59)
== END 2024-01-18 10:42 | disposition home or self-care (01) ==
PROVIDERS: PCP Internal Medicine; Visit Provider Internal Medicine Nephrology
DX: I10 Essential (primary) hypertension (principal); N18.31 Chronic kidney disease, stage 3a
CPT/HCPCS: 99214

== ENCOUNTER → 2024-01-18 10:25 | Outpatient (BNVA) | payer MEDICAID, SELFPAY | PROVIDERS: PCP Internal Medicine; Visit Provider Internal Medicine Nephrology | DX: I12.9 Hypertensive chronic kidney disease with stage 1 through stage 4 chronic kidney disease, or unspecified chronic kidney disease (principal); N18.31 Chronic kidney disease, stage 3a | CPT/HCPCS: 99212 ==

== ENCOUNTER 2024-02-13 11:40 | Outpatient (REF) | payer MEDICARE, MEDICAID, SELFPAY ==
[2024-02-13 13:16] LABS: MANUAL DIFF FLAG NO
[2024-02-13 13:29] LABS: Basophils Percent Auto 0.7 % (0-2); Eosinophils Absolute Auto 0.4 X10*3/uL (0.0-0.4); Eosinophils Percent Auto 6.1 % (0-4); Hematocrit 33.4 % (37.0-47.0); Hemoglobin 11.1 g/dl (12.0-16.0); Imm Gran Abs Auto 0.01 X10*3/uL (0.00-0.03); Imm Gran Pct Auto 0.2 % (0.0-0.4); Lymphocytes Absolute Auto 0.6 X10*3/uL (1.2-4.9); Lymphocytes Percent Auto 9.1 % (20-40); Mean Corpuscular HGB Conc 33.2 g/dl (31.0-35.0); Mean Corpuscular Hemoglobin 27.3 pg (27.0-33.0); Mean Corpuscular Volume 82.3 fL (80.0-98.0); Mean Platelet Volume 13.3 fL (9.4-12.3); Monocytes Absolute Auto 0.5 X10*3/uL (0.1-1.2); Monocytes Percent Auto 8.7 % (2-11); Neutrophils Absolute Auto 4.6 x10*3/uL (2.0-8.3); Neutrophils Percent Auto 75.2 % (45-73); Platelet Count 143 X10*3/uL (160-400); Red Blood Count 4.06 X10*6/uL (4.20-5.50); Red Cell Distribution Width 13.4 % (11.0-16.0); White Blood Count 6.1 X10*3/uL (4.8-10.8)
[2024-02-13 13:48] LABS: Alanine Aminotransferase 17 U/L (0-31); Albumin Level 4.1 g/dL (3.5-5.0); Alkaline Phosphatase 106 U/L (39-117); Anion Gap 11 (12-20); Aspartate Amino Transferase 16 U/L (5-31); Bilirubin Direct 0.2 mg/dL (0.0-0.5); Bilirubin Total 0.3 mg/dL (0.0-1.0); Blood Urea Nitrogen 22 mg/dL (9-16); Carbon Dioxide 28 mmol/L (22-29); Chloride 104 mmol/L (96-108); Estimated Glomerular Filt Rate 43; Glucose Random 104 mg/dL (60-115); Iron 60 mcg/dL (30-160); Percent Iron Saturation 24 % (15-50); Phosphorus 3.1 mg/dL (2.7-4.5); Potassium 4.2 mmol/L (3.3-5.1); Sodium 139 mmol/L (135-145); Total Iron Binding Capacity 248 mcg/dL (228-428); Total Protein 7.1 g/dL (6.5-8.0); Unsaturated Iron Binding 188 ug/dL
[2024-02-13 14:07] LABS: Ferritin 75 ng/mL (10-250)
[2024-02-13 14:29] LABS: Folate 10.1 ng/mL (> or = 4.0); Vitamin B12 484 pg/mL (200-900)
== END 2024-02-13 11:41 | disposition home or self-care (01) ==
LOC: HO.HHCL 11:40
PROVIDERS: Visit Provider Internal Medicine
DX: D64.9 Anemia, unspecified (principal); R42 Dizziness and giddiness; I10 Essential (primary) hypertension; E78.00 Pure hypercholesterolemia, unspecified
CPT/HCPCS: 36415; 80048; 80076; 82607; 82728; 82746; 83540; 84100; 85025

== ENCOUNTER 2024-04-03 06:03 | Outpatient (REF) | payer MEDICARE, MEDICAID, SELFPAY | END 2024-04-03 06:04 | disposition home or self-care (01) | LOC: CF 06:03 | PROVIDERS: Visit Provider Anesthesiology | DX: M53.3 Sacrococcygeal disorders, not elsewhere classified (principal); M51.369 Other intervertebral disc degeneration, lumbar region without mention of lumbar back pain or lower extremity pain; M47.817 Spondylosis without myelopathy or radiculopathy, lumbosacral region; G89.4 Chronic pain syndrome | CPT/HCPCS: J2003; J2795; Q9967 ==

== ENCOUNTER 2024-04-03 08:04 | Outpatient (AMB) | payer MEDICARE, MEDICAID, SELFPAY ==
[2024-04-03 08:18] VITALS: BP 169/72; PULSE 95; RESP 18; O2SAT 98
--- NOTE | 2024-04-03 08:18 | A.OFFVIS_ITS ---
Vital Signs 04/03/24 08:18 04/03/24 08:43 BP 169/72 H 164/75 H Blood Pressure Location Lt brachial Lt brachial Position Sitting Sitting Respiration 18 17 Pulse 95 86 Pulse Source Pulse Oximeter Pulse Oximeter Pulse Oximetry (%) 98 97 Oxygen Delivery Method Room Air Room Air Comment Pre-op Post-op Intake Visit Reasons: RIGHT DIAGNOSTIC SIJ INJECTION Allergies No Known Allergies [No Known Allergies*] Allergy (Verified 04/03/24 08:19) PFSH Medical History Chronic constipation History of colon polyps Internal hemorrhoids CVA (cerebral vascular accident) Abdominal pain Barretts esophagus Acid reflux Dyspnea Depression Anxiety Hypertension COPD (chronic obstructive pulmonary disease) Surgical History Hx of colonoscopy History of esophagogastroduodenoscopy (EGD) H/O section History of appendectomy History of cholecystectomy Family History Mother Cancer Maternal Grandmother Cancer Social History Household Members: None Alcohol intake: never Patient Tobacco Use Status: Never used Tobacco Current occupational status: disabled Physical Exam Vital Signs: Last Vital Signs Pulse 86 04/03/24 08:43 Resp 17 04/03/24 08:43 BP 164/75 H 04/03/24 08:43 Pulse Ox 97 04/03/24 08:43 Oxygen Delivery Method Room Air 04/03/24 08:43 Assessment & Plan Assessment & Plan (1) Lumbar degenerative disc disease: Code(s): M51.36 - Other intervertebral disc degeneration, lumbar region Category: Medical (2) Lumbosacral spondylosis: Code(s): M47.817 - Spondylosis without myelopathy or radiculopathy, lumbosacral region Category: Medical (3) Chronic pain syndrome: Code(s): G89.4 - Chronic pain syndrome Category: Medical (4) Sacroiliac joint pain: Code(s): M53.3 - Sacrococcygeal disorders, not elsewhere classified Category: Medical Plan Right diagnostic sacroiliac joint injection Informed consent was explained thoroughly to the patient.? All questions about benefits and risks for the procedure were answered.electronic instrument trades worker from [employer] # [id number] was used to obtain informed consent. Patient came to the operating room and was positioned prone on the operating table with the pillow under the abdomen. The lower back and buttocks of the patient were prepped with ChloraPrep prepped and draped with sterile utility towels.? Sterilely draped C-arm was brought over the operating field and sq picture of patient's pelvis was demonstrated on the screen.? For the right joint tilting C-arm contralateral to the site of the joint the most posterior portion of the joints was superimposed with anterior silhouette of the joint.? Skin was injected in the projection of the joint slightly medial to the location of the joint with 25 gauge 1/2 inch needle using local lidocaine 2% . After that 22 gauge 3 and 1/2 inch needle was driven to the right joint in tunnel vision fashion.? When needle entered the joint capsule injection of the contrast was performed demonstrating intra-articular and minimally periarticular spread of the contrast.? After that 4 cc. of ropivacaine 0.5% was injected in the joint. After that procedure was repeated on the left side in mirroring fashion. Same dose of ropivacaine was injected into the joint. Upon completion of the injections the needle was removed and Band-Aid was applied.? Upon completion of the injection patient was taken outside of the operating room to the recovery room where recovered uneventfully. Orders: Orders: Orders FL guidance in treatment room Today M53.3 - Sacrococcygeal disorders, not elsewhere classified Coding Level of Care Code Procedure Only Diagnoses Lumbar degenerative disc disease M51.36 Lumbosacral spondylosis M47.817 Chronic pain syndrome G89.4 Sacroiliac joint pain M53.3
[2024-04-03 08:43] VITALS: BP 164/75; PULSE 86; RESP 17; O2SAT 97
== END 2024-04-03 09:03 | disposition home or self-care (01) ==
LOC: HO.PMCPRC 08:04
PROVIDERS: PCP Internal Medicine; Visit Provider Anesthesiology
DX: M53.3 Sacrococcygeal disorders, not elsewhere classified (principal)
CPT/HCPCS: 27096

== ENCOUNTER 2024-04-03 08:54 | Outpatient (REF) | payer MEDICARE, MEDICAID, SELFPAY ==
[2024-04-03 10:02] LABS: Anion Gap 13 (12-20); Blood Urea Nitrogen 13 mg/dL (9-16); Calcium 8.9 mg/dL (8.4-10.2); Carbon Dioxide 28 mmol/L (22-29); Chloride 110 mmol/L (96-108); Estimated Glomerular Filt Rate 46; Potassium 4.3 mmol/L (3.3-5.1); Sodium 147 mmol/L (135-145)
== END 2024-04-03 08:55 | disposition home or self-care (01) ==
LOC: HO.LAB 08:54
PROVIDERS: PCP Internal Medicine; Visit Provider Internal Medicine Nephrology
DX: M53.3 Sacrococcygeal disorders, not elsewhere classified (principal); G89.4 Chronic pain syndrome; M51.360 Other intervertebral disc degeneration, lumbar region with discogenic back pain only; M47.817 Spondylosis without myelopathy or radiculopathy, lumbosacral region; I12.9 Hypertensive chronic kidney disease with stage 1 through stage 4 chronic kidney disease, or unspecified chronic kidney disease; N18.31 Chronic kidney disease, stage 3a
CPT/HCPCS: 27096; 36415; 80051; 82310; 82565; 84520; J2003; J2795; Q9967

== ENCOUNTER 2024-04-10 08:24 | Outpatient (AMB) | payer MEDICARE, MEDICAID, SELFPAY ==
--- NOTE | 2024-04-10 08:45 | A.OFFVIS_ITS ---
Vital Signs 04/10/24 08:57 Height 5 ft 2 in Weight 186 lb BMI 34.0 BP 119/60 Blood Pressure Location Rt brachial Position Sitting Pulse 75 Pulse Source Pulse Oximeter Pulse Oximetry (%) 96 Oxygen Delivery Method Room Air Intake Visit Reasons: RIGHT DIAGNOSTIC SIJ INJECTION Intake Note: Pain today 02/03 Sap Grc Security Required: Yes Sap Grc Security Language: Esthetician/Owner Services: Sap Grc Security Present Sap Grc Security Name: Deepa #[id number] Accompanied by: Self / Same As Patient Allergies No Known Allergies [No Known Allergies*] Allergy (Verified 04/10/24 08:57) HPI Comments Details: Patient presents today to assess response to Right Diagnostic SIJ injection on 04/03/[address] Kraft. Patient reports 100% pain relief for 24 hours following the injection with significant improvement in her daily activities and functioning, mobility and sleep. She would like to proceed with radiofrequency ablation as a next steps. We discussed peripheral nerve stimulation trial and implant, including Sprint PNS trial for 60 days. Patient declined peripheral nerve stimulation at this time. Patient denies any fever, chills, cough, bladder or bowel incontinence or saddle anesthesia or any significant changes in medical history since last office visit. Past Procedures: 04/03/24: Right Diagnostic SIJ injection-100% pain relief for 24 hours 02/24/23: Right L4 Sprint PNS-60% pain relief, removed 04/25/23 02/10/23: Left L4 Sprint PNS-70% pain relief, removed 03/15/23 12/14/22: Bilateral L3-L4- DRL5 Diagnostic MBBs ? 100% relief for 4 days. PRIOR: Pain is a pleasant 61-year-old [place] Islander-speaking female with prior history of L5 fracture in 2009 and lumbar degenerative disc disease presents today for initial evaluation of low back pain. Denies any recent trauma, injury, or falls. Her back pain presents as mostly axial is occasional radiation of pain into her right buttock and posterior leg and at times anterior lower leg. Here pain has been getting progressively worse over the past 2 months and she reports experiencing excruciating and debilitating pain the last 2 weeks. Patient reports completing physical therapy which has increased her pain. Lumbar extension significantly increases her pain, bending or flexion forward reproduces minimal pain. Pain affects her daily activities, functioning, sleep, mood, and social interactions. She has been managing her pain is gabapentin, ibuprofen, and heat therapy is continued symptoms. Reports occasional weakness in her legs which necessitates the use of walker. Denies any fever, weight changes, abdominal or groin pain, bladder or bowel incontinence, or saddle anesthesia. Location Axial low back pain with intermittent radicular pain Duration Chronic back pain, worsening over the past 2 months Characteristics of symptom or complaint Pulsing, throbbing, sharp, aching, cramping, dull, sore, hurting, heavy Aggravating or associated factors Walking, sitting, standing, changing positions, Relieving factors Heat pad or showers, gabapentin, ibuprofen Treatment PT-no relief, worsening of pain PFSH Medical History Chronic constipation History of colon polyps Internal hemorrhoids CVA (cerebral vascular accident) Abdominal pain Barretts esophagus Acid reflux Dyspnea Depression Anxiety Hypertension COPD (chronic obstructive pulmonary disease) Surgical History Hx of colonoscopy History of esophagogastroduodenoscopy (EGD) H/O section History of appendectomy History of cholecystectomy Family History Mother Cancer Maternal Grandmother Cancer Social History Household Members: None Alcohol intake: never Patient Tobacco Use Status: Never used Tobacco Current occupational status: disabled Review of Systems Const All systems reviewed & are unremarkable except as noted in HPI and below Physical Exam General: Appears afebrile. No acute distress. Alert and oriented. Mood and affect appropriate. Follows and participates in conversation appropriately. Respiratory effort is unlabored. No cough. Able to transition from sit to stand unassisted. Uses cane with ambulation. Ambulates with bilaterally normal heel strike and toe off. General: Yes no CVA tenderness Back/Spine/Pelvis Other: Limited lumbar ROM due to pain. Lumbar extension and flexion reproduces mild to moderate pain. Positive facet loading bilaterally. Localized tenderness in the projection of right sacroiliac joint. +Robert sign. Gaenslen, Kraig?sand pelvic compression positive on the right. Back: no CVA tenderness Cervical Spine: cervical ROM normal, cervical muscular tenderness and No Cervical spine tenderness Thoracic/Lumbar Spine: thoracic and lumbar spine normal to inspection, No Thoracic/lumbar spine scar(s), Lasegue's sign negative, straight leg raise negative bilaterally, paraspinal muscle tenderness on the right greater than left, thoraco-lumbar ROM limited, No thoracic spinal tenderness and lumbar spinal tenderness at L4 and at L5 Pelvis: buttock tenderness on the right Sacroiliac joints: on the right tender to palpation and on the left nontender Results Reviewed Results Reviewed: XR LUMBOSACRAL SPINE WITH OBLIQUES 05/30/23 CLINICAL INFORMATION: Pain COMPARISON: 10/27/2022 MRI and radiograph from 08/09/2018 FINDINGS: There is chronic deformity of the superior endplate of L5 most likely related to remote fracture and mild narrowing of L4-L5 intervertebral disc space. There is no instability or neuroforaminal narrowing. There is facets arthropathy at the level of L4-L5 and L5-S1. The paraspinal soft tissues are normal. IMPRESSION: Mild compression deformity of L5 unchanged since previous studies in facets arthropathy. Mild narrowing of L4-L5 intervertebral disc spaces without instability. XR BILATERAL HIPS WITH AP PELVIS 05/30/23 CLINICAL INFORMATION: Pain in right hip COMPARISON: 02/06/2018 FINDINGS: No fracture. Hip joint spaces are maintained. Alignment is anatomic. Sacroiliac joints and pubic symphysis are normal. No abnormal soft tissue calcifications. IMPRESSION: Normal pelvis and hips. MR LUMBAR SPINE WITHOUT CONTRAST 10/27/22 FINDINGS: The lumbar vertebral bodies normal alignment. There is chronic superior endplate compression fracture at L5 with 60% height loss centrally. No retropulsion. There is no significant disc height loss. No bone marrow edema is seen. The distal spinal cord appears normal. The conus medullaris terminates normally at the L1-L2 level. The extraspinal soft tissues are within normal limits. SPINAL LEVELS: L1-L2: No posterior disc abnormality. No spinal canal or neural foraminal stenosis. L2-L3: No posterior disc abnormality. No spinal canal or neural foraminal stenosis. L3-L4: No posterior disc abnormality. No spinal canal or neural foraminal stenosis. L4-L5: Minimal disc bulging with mild facet arthropathy. No spinal canal stenosis. Mild narrowing of the bilateral neural foramina. L5-S1: Mild disc bulging with moderate facet arthropathy. No spinal canal stenosis. Mild narrowing of the bilateral neural foramina. IMPRESSION: No significant narrowing of the spinal canal or neural foramina. Chronic superior endplate compression fracture at L5. Assessment & Plan Assessment & Plan (1) Lumbar degenerative disc disease: Code(s): M51.36 - Other intervertebral disc degeneration, lumbar region Category: Medical (2) Lumbosacral spondylosis: Code(s): M47.817 - Spondylosis without myelopathy or radiculopathy, lumbosacral region Category: Medical (3) Chronic pain syndrome: Code(s): G89.4 - Chronic pain syndrome Category: Medical (4) Sacroiliac joint pain: Code(s): M53.3 - Sacrococcygeal disorders, not elsewhere classified Category: Medical (5) Sacroiliitis: Code(s): M46.1 - Sacroiliitis, not elsewhere classified Category: Medical Plan Schedule Right Sacroiliac Joint RFA with sedation and fluoroscopy. We also discussed peripheral nerve stimulation with Curonix trial or Sprint PNS trial and SI joint fusion. Patient is hesitant towards any implants at this time and would like to proceed with RFA. Patient has history of L5 compression fracture and is not candidate for steroid injections. All questions were answered and the patient is in agreement with the plan. Follow up after RFA procedure and sooner as needed. Justification for interventional therapy: ? Patient with average pain > 6/10 ? Patient has exhausted conservative therapy, NSAIDs, opioid medication, physical therapy ? Right Diagnostic SIJ injection-100% pain relief for 24 hours The risks, consequences, alternatives, and benefits of various treatment options were discussed with the patient in great detail, including conservative management, injections and procedures. Coding Level of Care Code Est Pt Level 4 (81605) Complex EM visit Add On G2211 Diagnoses Lumbar degenerative disc disease M51.36 Lumbosacral spondylosis M47.817 Chronic pain syndrome G89.4 Sacroiliac joint pain M53.3 Sacroiliitis M46.1
[2024-04-10 08:57] VITALS: BP 119/60; PULSE 75; O2SAT 96; BMI 34.0
== END 2024-04-10 09:03 | disposition home or self-care (01) ==
PROVIDERS: PCP Internal Medicine; Visit Provider Nurse Practitioner Family
DX: M51.369 Other intervertebral disc degeneration, lumbar region without mention of lumbar back pain or lower extremity pain (principal); M47.817 Spondylosis without myelopathy or radiculopathy, lumbosacral region; G89.4 Chronic pain syndrome; M53.3 Sacrococcygeal disorders, not elsewhere classified; M46.1 Sacroiliitis, not elsewhere classified
CPT/HCPCS: 99214; G2211

== ENCOUNTER → 2024-04-10 08:24 | Outpatient (BNVA) | payer MEDICARE, MEDICAID, SELFPAY | PROVIDERS: PCP Internal Medicine; Visit Provider Nurse Practitioner Family | DX: M51.369 Other intervertebral disc degeneration, lumbar region without mention of lumbar back pain or lower extremity pain (principal); M47.817 Spondylosis without myelopathy or radiculopathy, lumbosacral region; M53.3 Sacrococcygeal disorders, not elsewhere classified; M46.1 Sacroiliitis, not elsewhere classified; G89.4 Chronic pain syndrome; Z98.890 Other specified postprocedural states | CPT/HCPCS: 99212 ==

== ENCOUNTER 2024-04-13 11:13 | Outpatient (AMB) | payer MEDICARE, MEDICAID, SELFPAY ==
[2024-04-13 11:20] VITALS: BP 102/60; PULSE 77; O2SAT 96; BMI 33.6
--- NOTE | 2024-04-13 11:20 | HO.NEPHOV_ITS ---
Vital Signs 04/13/24 11:20 Height 5 ft 2 in Weight 183 lb 8 oz BMI 33.6 BP 102/60 Blood Pressure Location Rt brachial Position Sitting Pulse 77 Pulse Source Pulse Oximeter Pulse Oximetry (%) 96 Oxygen Delivery Method Room Air Intake Visit Reasons: CKD- Conf Composite Technician Required: Yes Composite Technician Language: Bracelet And Brooch Maker Services: Composite Technician Offered & Declined ([facility] project manager sercices refused. Pt accompanied by ELECTRICIAN OUTSIDE.) Composite Technician Name: Anahi-YOON Information Interpreted: clinical only Accompanied by: Other Relationship Allergies No Known Allergies [No Known Allergies*] Allergy (Verified 04/13/24 11:23) HPI Comments Details: I had the pleasure of seeing Gabrielle in follow up for chronic kidney disease and hypertension. She has lot of arthritic issues and takes nonsteroidals as needed basis. She denies any coronary artery disease, congestive heart failure, carotid stenosis, CVA, renal artery stenosis or peripheral arterial disease. She has not a diabetic. She has longstanding hypertension and is on multiple antihypertensive medications. She denies any nausea vomiting or diarrhea, pedal edema, shortness of breath, paroxysmal nocturnal dyspnea, orthopnea, orthostatic symptoms, hematuria or urinary symptoms. She was off diuretics and carvedilol for some time. She has history of CVA. [facility] Medical History Chronic constipation History of colon polyps Internal hemorrhoids CVA (cerebral vascular accident) Abdominal pain Barretts esophagus Acid reflux Dyspnea Depression Anxiety Hypertension COPD (chronic obstructive pulmonary disease) Surgical History Hx of colonoscopy History of esophagogastroduodenoscopy (EGD) H/O section History of appendectomy History of cholecystectomy Family History Mother Cancer Maternal Grandmother Cancer Social History Household Members: None Alcohol intake: never Patient Tobacco Use Status: Never used Tobacco Current occupational status: disabled Review of Systems Const All systems reviewed & are unremarkable except as noted in HPI and below Physical Exam Vital Signs: Last Vital Signs Pulse 77 04/13/24 11:20 BP 102/60 04/13/24 11:20 Pulse Ox 96 04/13/24 11:20 Oxygen Delivery Method Room Air 04/13/24 11:20 BMI result Body Mass Index 33.6 Const General: comfortable and no acute distress Orientation/consciousness: patient oriented x3 HEENT Head: Yes normocephalic Mouth: Normal oral and palatal mucosa present Eyes EOM: EOMs intact bilaterally Neck Neck: Yes supple Resp Auscultation: clear to auscultation bilaterally Cardio Jugular venous distension: no JVD Rate: regular rate GI Palpation (GI): Soft to palpation Auscultation: normal bowel sounds General: Yes no CVA tenderness Back/Spine/Pelvis Back: no CVA tenderness Skin General skin exam: no rashes or lesions noted Neuro General: patient oriented x3 and moves all extremities Extrem General: Yes no pedal edema Results Reviewed Nephrology Results: Hgb 11.1 g/dl (12.0-16.0) L 02/13/24 WBC 6.1 X10*3/uL (4.8-10.8) 02/13/24 Plt Count 143 X10*3/uL (160-400) L 02/13/24 Sodium 147 mmol/L (135-145) H 04/03/24 Potassium 4.3 mmol/L (3.3-5.1) 04/03/24 Chloride 110 mmol/L (96-108) H 04/03/24 Carbon Dioxide 28 mmol/L (22-29) 04/03/24 BUN 13 mg/dL (9-16) 04/03/24 Creatinine 1.18 mg/dL (0.5-1.4) 04/03/24 Calcium 8.9 mg/dL (8.4-10.2) 04/03/24 Phosphorus 3.1 mg/dL (2.7-4.5) 02/13/24 Assessment & Plan Assessment & Plan (1) CKD (chronic kidney disease) stage 3, GFR 30-59 ml/min: Code(s): N18.30 - Chronic kidney disease, stage 3 unspecified Category: Medical Qualifiers: Chronic kidney disease stage 3 subtype: stage 3a (GFR 45-59) Qualified Code(s): N18.31 - Chronic kidney disease, stage 3a (2) Hypertension: Code(s): I10 - Essential (primary) hypertension Category: Medical Qualifiers: Hypertension type: primary hypertension Qualified Code(s): I10 - Essential (primary) hypertension Plan Her serum creatinine is close to baseline. She has CKD stage 3 due to vascular disease. She is hypertensive. Her blood pressure has been at goal. I plan to do a Doppler of her renal arteries with time. She does not have any significant proteinuria. She should avoid nonsteroidal anti-inflammatories and maintain good hydration. I did not make any medication changes today. Answered all questions. Follow-up lab studies ordered. Follow-up appointment given. Orders: Orders Creatinine 4 Months I10 - Essential (primary) hypertension, N18.31 - Chronic kidney disease, stage 3a Blood Urea Nitrogen 4 Months I10 - Essential (primary) hypertension, N18.31 - Chronic kidney disease, stage 3a Electrolytes 4 Months I10 - Essential (primary) hypertension, N18.31 - Chronic kidney disease, stage 3a Calcium 4 Months I10 - Essential (primary) hypertension, N18.31 - Chronic kidney disease, stage 3a Coding Level of Care Code Est Pt Level 4 (49764) Diagnoses Stage 3a chronic kidney disease N18.31 Chronic kidney disease stage 3 subtype: stage 3a (GFR 45-59) Primary hypertension I10 Hypertension type: primary hypertension
== END 2024-04-13 11:34 | disposition home or self-care (01) ==
PROVIDERS: PCP Internal Medicine; Visit Provider Internal Medicine Nephrology
DX: I12.9 Hypertensive chronic kidney disease with stage 1 through stage 4 chronic kidney disease, or unspecified chronic kidney disease (principal); N18.31 Chronic kidney disease, stage 3a
CPT/HCPCS: 99214

== ENCOUNTER → 2024-04-13 11:13 | Outpatient (BNVA) | payer MEDICARE, MEDICAID, SELFPAY | PROVIDERS: PCP Internal Medicine; Visit Provider Internal Medicine Nephrology | DX: I12.9 Hypertensive chronic kidney disease with stage 1 through stage 4 chronic kidney disease, or unspecified chronic kidney disease (principal); N18.31 Chronic kidney disease, stage 3a | CPT/HCPCS: 99212 ==

== ENCOUNTER 2024-04-26 13:21 | Outpatient (REF) | payer MEDICAID, SELFPAY ==
[2024-04-26 16:56] LABS: Anion Gap 19 (12-20); Blood Urea Nitrogen 26 mg/dL (9-16); Calcium 8.8 mg/dL (8.4-10.2); Carbon Dioxide 23 mmol/L (22-29); Chloride 103 mmol/L (96-108); Estimated Glomerular Filt Rate 30; Glucose Random 75 mg/dL (60-115); Potassium 4.1 mmol/L (3.3-5.1); Sodium 141 mmol/L (135-145)
== END 2024-04-26 13:22 | disposition home or self-care (01) ==
LOC: HO.HHCL 13:21
PROVIDERS: Visit Provider Internal Medicine
DX: I11.0 Hypertensive heart disease with heart failure (principal); I50.9 Heart failure, unspecified
CPT/HCPCS: 36415; 80048

== ENCOUNTER 2024-05-04 07:48 | Emergency (ER) | payer MEDICARE, MEDICAID, SELFPAY ==
[2024-05-04 07:59] VITALS: BP 115/74; PULSE 75; RESP 18; TEMP 36.3; O2SAT 97; BMI 33.0
--- NOTE | 2024-05-04 08:04 | ED.FEMALEGU ---
HPI - Female Genitourinary General Chief complaint: Urogenital-Female Stated complaint: uti ? 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 She notes some mild R low back pain. She has no n/v. She is tolerating PO. She reports recent UTI and her PCP is aware. MD elicited complaint: dysuria and UTI Onset (ago): day(s) (2) Location of symptoms: suprapubic Severity: mild Quality of pain: burning Consistency: intermittent Urinary symptoms: Dysuria, Urgency and Frequency Exacerbating factors: urination Relieving factors: none Associated symptoms: back pain Treatment prior to arrival: none Related Data Home Medications ?Medication ?Instructions ?Recorded ?Confirmed citalopram 20 mg tablet (Celexa) 20 mg PO DAILY 07/31/20 07/19/23 clopidogrel 75 mg tablet 75 mg PO DAILY 07/31/20 07/19/23 hydrochlorothiazide 25 mg tablet 25 mg PO DAILY 07/31/20 07/19/23 bupropion HCl 300 mg 24 hr tablet, 300 mg PO QAM 07/23/21 07/19/23 extended release gabapentin 600 mg tablet 600 mg PO 07/23/21 03/25/23 haloperidol 1 mg tablet 0 mg PO 07/23/21 03/25/23 albuterol sulfate 90 mcg/actuation puff inhalation QID PRN wheezing 11/29/22 03/25/23 aerosol inhaler (Proventil HFA) lorazepam 0.5 mg tablet 0.5 mg PO Q8H PRN anxiety 11/29/22 07/19/23 docusate sodium 100 mg capsule 100 mg PO constipation 12/24/22 03/25/23 meloxicam 15 mg tablet 15 mg PO QAM 12/24/22 07/19/23 mirtazapine 30 mg tablet 60 mg PO BEDTIME 12/24/22 07/19/23 risperidone 3 mg tablet 3 mg PO BEDTIME 12/24/22 07/19/23 verapamil 120 mg tablet,extended 120 mg PO QAM 12/24/22 07/19/23 release lisinopril 10 mg tablet 10 mg PO QAM 01/20/23 07/19/23 atorvastatin 10 mg tablet 10 mg PO BEDTIME 05/30/23 07/19/23 Lactobacil rhamnosus GG 10 billion 1 cap PO DAILY 10/04/23 cell-inulin 200 mg sprinkle capsule ([facility]) ferrous sulfate 325 mg (65 mg 325 mg PO Q OTHER DAY 10/04/23 iron) tablet (FeroSul) magnesium oxide 400 mg (241.3 mg 400 mg PO DAILY 10/04/23 magnesium) tablet ondansetron 4 mg disintegrating 4 mg PO Q8H PRN nausea 10/04/23 tablet sucralfate 1 gram tablet 1 g PO QID 10/04/23 cyanocobalamin (vitamin B-12) mcg PO 11/28/23 1,000 mcg tablet,extended release (Vitamin B-12 ER) polyvinyl alcohol 1.4 % eye drops 1 drp ophthalmic (eye) 11/28/23 tramadol 50 mg tablet 50 mg PO Q6-8H PRN pain 11/28/23 aspirin 81 mg tablet,delayed 81 mg PO QAM 04/10/24 release carvedilol 3.125 mg tablet 3.125 mg PO BID 04/10/24 venlafaxine 150 mg 150 mg PO DAILY 04/10/24 capsule,extended release 24 hr Previous Rx's ?Medication ?Instructions ?Recorded pantoprazole 40 mg tablet,delayed 40 mg PO DAILY #90 tabs 09/11/20 release celecoxib 200 mg capsule (Celebrex) 200 mg PO BID 30 days #60 caps 03/25/23 bumetanide 1 mg tablet 1 mg PO DAILY #30 tabs 12/21/23 famotidine 40 mg tablet 40 mg PO BEDTIME #30 tabs 01/24/24 umeclidinium 62.5 mcg-vilanterol 1 ea PO DAILY #60 ea 03/16/24 25 mcg/actuation powdr for inhalation (Anoro Ellipta) cefuroxime axetil 250 mg tablet 250 mg PO BID 7 days #14 tabs 05/04/24 Allergies Allergy/AdvReac Type Severity Reaction Status Date / Time No Known Allergies Allergy Verified 05/04/24 08:03 [No Known Allergies*] Review of Systems Review of Systems: Constitutional : No Fever, No Chills, No Fatigue ENT/Mouth : No sore throat, No Rhinorrhea Eyes: No Eye Pain, No Swelling, No Redness Cardiovascular : No Chest Pain, No SOB, No Dyspnea on Exertion Respiratory : No Cough, No Sputum Gastrointestinal : No Nausea, No Vomiting, No Diarrhea, No abdominal Pain Genitourinary : pos Dysuria, pos Urinary Frequency, No Hematuria, Musculoskeletal : No joint pain, No Myalgias, No Joint Swelling, pos back pain Skin : No Skin Lesions, No rash Neuro : No Weakness, No Numbness, No Dizziness, no Headache Psych : No Anxiety/Panic, No Depression Heme/Lymph: No Bruising, No Bleeding,No Lymphadenopathy Endocrine : No Polyuria, No Polydipsia All other systems reviewed and are negative [facility] Past Medical History Attestation statement: The following information was validated with the patient. Source: old records reviewed Medical History Chronic constipation History of colon polyps Internal hemorrhoids CVA (cerebral vascular accident) Abdominal pain Barretts esophagus Acid reflux Dyspnea Depression Anxiety Hypertension COPD (chronic obstructive pulmonary disease) Surgical History Hx of colonoscopy History of esophagogastroduodenoscopy (EGD) H/O section History of appendectomy History of cholecystectomy Family History Family History Mother Cancer Maternal Grandmother Cancer Social History Social History Household Members: None Alcohol intake: never Patient Tobacco Use Status: Never used Tobacco Advance Directives: No Advance Directives Information Provided: Yes Do you have a plan to hurt others: No Plan Current occupational status: disabled Physical Exam Vital Signs: Vital Signs: Last Vital Signs Temp 97.7 F 05/04/24 08:25 Pulse 77 05/04/24 08:25 Resp 18 05/04/24 08:25 BP 117/46 L 05/04/24 08:25 Pulse Ox 96 05/04/24 08:25 O2 Del Method Room Air 05/04/24 08:25 BMI result Body Mass Index 33.0 Appearance: Alert. Oriented X3. No acute distress. Eyes: Pupils equal, round and reactive to light. ENT: Pharynx normal. Neck: Normal inspection. Neck supple. CVS: Normal heart rate and rhythm. Pulses normal. Respiratory: No respiratory distress. Breath sounds normal. Abdomen: Soft and nontender Back: no CVA ttp on right side above the iliac crest reports pain. Skin: Skin warm and dry. Normal skin color. Normal skin turgor. Extremities: No lower extremity edema. No calf ttp Neuro: Oriented X 3. No motor deficit. No sensory deficit. Medical Decision Making Medical Decision Making [facility] Narrative: 63 yo female with PMH of CKD, ESME, GERD, asthma, HLD, HTN, CVA on plavix here with c/o 2 days of dysuria, frequency, and mild R low back pain. She has no fevers, n/v/d. She is eating and drinking without issue. No fevers. At this time basic labs and UA - doubt stones and doubt pyelo has no CVA and no prior hx of stones Differential Diagnosis Differential Diagnoses: The differential diagnosis associated with the presentation includes UTI Admission/Observation Consideration of admission/observation: Escalation of care including admission/observation considered labs stable, tolerating PO start on ceftin no systemic symptoms no indication for admission at this time Lab Data [facility] Lab Attestation statement: I reviewed the patient's lab results. 05/04/24 08:40 05/04/24 08:40 Labs: Lab Results 05/04/24 05/04/24 Range/Units 08:40 08:41 WBC 7.1 (4.8-10.8) X10*3/uL RBC 3.86 L (4.20-5.50) X10*6/uL Hgb 10.5 L (12.0-16.0) g/dl Hct 31.3 L (37.0-47.0) % MCV 81.1 (80.0-98.0) fL MCH 27.2 (27.0-33.0) pg MCHC 33.5 (31.0-35.0) g/dl RDW 14.3 (11.0-16.0) % Plt Count 173 (160-400) X10*3/uL MPV 12.8 H (9.4-12.3) fL Immature Gran % (Auto) 0.4 (0.0-0.4) % Neut % (Auto) 74.8 H (45-73) % Lymph % (Auto) 9.8 L (20-40) % Gilliam % (Auto) 7.5 (2-11) % Eos % (Auto) 6.8 H (0-4) % Baso % (Auto) 0.7 (0-2) % Lymph # (Auto) 0.7 L (1.2-4.9) X10*3/uL Gilliam # (Auto) 0.5 (0.1-1.2) X10*3/uL Eos # (Auto) 0.5 H (0.0-0.4) X10*3/uL Baso # (Auto) 0.1 (0.0-0.2) X10*3/uL Abs Immat Gran (auto) 0.03 (0.00-0.03) X10*3/uL Absolute Neuts (auto) 5.3 (2.0-8.3) x10*3/uL Absolute Nucleated RBC 0.000 (0.0-0.012) X10*3/uL Nucleated RBC % (auto) 0.0 (0.0-0.2) /100WBC Sodium 142 (135-145) mmol/L Potassium 4.4 (3.3-5.1) mmol/L Chloride 106 (96-108) mmol/L Carbon Dioxide 26 (22-29) mmol/L Anion Gap 14 (12-20) BUN 14 (9-16) mg/dL Creatinine 1.40 (0.5-1.4) mg/dL Estim Creat Clear Calc 39.7 Estimated GFR 38 Random Glucose 104 (60-115) mg/dL Calcium 8.6 (8.4-10.2) mg/dL Magnesium 2.1 (1.6-2.6) mg/dL Total Bilirubin 0.2 (0.0-1.0) mg/dL Direct Bilirubin < 0.2 (0.0-0.5) mg/dL AST 17 (5-31) U/L ALT 16 (0-31) U/L Alkaline Phosphatase 84 (39-117) U/L Total Protein 6.7 (6.5-8.0) g/dL Albumin 3.9 (3.5-5.0) g/dL Lipase 27 (8-78) U/L Urine Color Yellow Urine Appearance Turbid Urine pH 5.5 (5.0-9.0) Ur Specific Ethel 1.015 (1.005-1.025) Urine Protein Trace (Neg-Trace) mg/dL Urine Glucose (UA) Negative (Negative) mg/dL Urine Ketones Negative (Negative) mg/dL Urine Blood Moderate (2+) H (Negative) Urine Nitrite Positive H (Negative) Ur Leukocyte Esterase Large (3+) H (Negative) External Record Review External record reviewed: Outpatient record and Prior outpatient labs Prescription Management I considered prescription management with: Antibiotic Discharge Plan Discharge Clinical Impression: Urinary tract infection Qualifiers: Urinary tract infection type: acute cystitis Hematuria presence: without hematuria Qualified Code(s): N30.00 - Acute cystitis without hematuria Patient Disposition: Home, Self-Care Instructions: Urinary Tract Infection in Women (ED) Additional Instructions: labs reassuring please return for any worsening symptoms or concerns such as fevers, vomiting, worsening pain On a cephalosporin?antibiotic, softer bowel movements are to be expected. Call your provider if you move your bowels more than 4 times a day, your bowel movements are almost all liquid, or you get a rash.?? Prescriptions: New cefuroxime axetil 250 mg tablet 250 mg PO BID 7 Days Qty: 14 0RF No Action pantoprazole 40 mg tablet,delayed release (DR/EC) 40 mg PO DAILY Qty: 90 3RF bumetanide 1 mg tablet 1 mg PO DAILY Qty: 30 6RF famotidine 40 mg tablet 40 mg PO BEDTIME Qty: 30 5RF Anoro Ellipta 62.5-25 mcg/actuation blister with device 1 ea PO DAILY Qty: 60 6RF clopidogrel 75 mg tablet 75 mg PO DAILY hydrochlorothiazide 25 mg tablet 25 mg PO DAILY citalopram [Celexa] 20 mg tablet 20 mg PO DAILY haloperidol 1 mg tablet 0 mg PO bupropion HCl 300 mg tablet extended release 24 hr 300 mg PO QAM gabapentin 600 mg tablet 600 mg PO lisinopril 10 mg tablet 10 mg PO QAM tramadol 50 mg tablet 50 mg PO Q6-8H PRN (Reason: pain) polyvinyl alcohol 1.4 % drops 1 drp ophthalmic (eye) cyanocobalamin (vitamin B-12) [Vitamin B-12] 1,000 mcg tablet extended release PO lorazepam 0.5 mg tablet 0.5 mg PO Q8H PRN (Reason: anxiety) albuterol sulfate [Proventil HFA] 90 mcg/actuation HFA aerosol inhaler inhalation QID PRN (Reason: wheezing) mirtazapine 30 mg tablet 60 mg PO BEDTIME risperidone 3 mg tablet 3 mg PO BEDTIME meloxicam 15 mg tablet 15 mg PO QAM verapamil 120 mg tablet extended release 120 mg PO QAM docusate sodium 100 mg capsule 100 mg PO celecoxib [Celebrex] 200 mg capsule 200 mg PO BID 30 Days Qty: 60 3RF atorvastatin 10 mg tablet 10 mg PO BEDTIME [facility] 10 billion cell -200 mg capsule, sprinkle 1 cap PO DAILY magnesium oxide 400 mg (241.3 mg magnesium) tablet 400 mg PO DAILY ferrous sulfate [FeroSul] 325 mg (65 mg iron) tablet 325 mg PO Q OTHER DAY sucralfate 1 gram tablet 1 g PO QID ondansetron 4 mg tablet,disintegrating 4 mg PO Q8H PRN (Reason: nausea) carvedilol 3.125 mg tablet 3.125 mg PO BID venlafaxine 150 mg capsule,extended release 24hr 150 mg PO DAILY aspirin 81 mg tablet,delayed release (DR/EC) 81 mg PO QAM Print Language: [place]
[2024-05-04 08:25] VITALS: BP 117/46; PULSE 77; RESP 18; TEMP 36.5; O2SAT 96
[2024-05-04 08:46] LABS: Basophils Absolute Auto 0.1 X10*3/uL (0.0-0.2); Basophils Percent Auto 0.7 % (0-2); Eosinophils Absolute Auto 0.5 X10*3/uL (0.0-0.4); Eosinophils Percent Auto 6.8 % (0-4); Hematocrit 31.3 % (37.0-47.0); Hemoglobin 10.5 g/dl (12.0-16.0); Imm Gran Abs Auto 0.03 X10*3/uL (0.00-0.03); Imm Gran Pct Auto 0.4 % (0.0-0.4); Lymphocytes Absolute Auto 0.7 X10*3/uL (1.2-4.9); Lymphocytes Percent Auto 9.8 % (20-40); MANUAL DIFF FLAG NO; Mean Corpuscular HGB Conc 33.5 g/dl (31.0-35.0); Mean Corpuscular Hemoglobin 27.2 pg (27.0-33.0); Mean Corpuscular Volume 81.1 fL (80.0-98.0); Mean Platelet Volume 12.8 fL (9.4-12.3); Monocytes Absolute Auto 0.5 X10*3/uL (0.1-1.2); Monocytes Percent Auto 7.5 % (2-11); Neutrophils Absolute Auto 5.3 x10*3/uL (2.0-8.3); Neutrophils Percent Auto 74.8 % (45-73); Platelet Count 173 X10*3/uL (160-400); Red Blood Count 3.86 X10*6/uL (4.20-5.50); Red Cell Distribution Width 14.3 % (11.0-16.0); White Blood Count 7.1 X10*3/uL (4.8-10.8)
[2024-05-04 08:53] LABS: Appearance Urine Turbid; Color Urine Yellow; Glucose Urine UA Negative (Negative); Leukocyte Esterase Urine Large (3+) (Negative); Nitrite Urine Positive (Negative); PH 5.5 (5.0-9.0); Specific Gravity - Urine 1.015 (1.005-1.025); UMIC TRIGGER UACC YES; Urine Blood Moderate (2+) (Negative); Urine Ketones Negative (Negative); Urine Protein Trace mg/dL (Neg-Trace)
[2024-05-04 09:02] LABS: Alanine Aminotransferase 16 U/L (0-31); Albumin Level 3.9 g/dL (3.5-5.0); Alkaline Phosphatase 84 U/L (39-117); Anion Gap 14 (12-20); Aspartate Amino Transferase 17 U/L (5-31); Bilirubin Direct < 0.2 mg/dL (0.0-0.5); Bilirubin Total 0.2 mg/dL (0.0-1.0); Blood Urea Nitrogen 14 mg/dL (9-16); Calcium 8.6 mg/dL (8.4-10.2); Carbon Dioxide 26 mmol/L (22-29); Chloride 106 mmol/L (96-108); Creatinine Clr Calc Pharmacy 39.7; Estimated Glomerular Filt Rate 38; Glucose Random 104 mg/dL (60-115); Lipase 27 U/L (8-78); Magnesium 2.1 mg/dL (1.6-2.6); Potassium 4.4 mmol/L (3.3-5.1); Sodium 142 mmol/L (135-145); Total Protein 6.7 g/dL (6.5-8.0)
[2024-05-04 09:08] LABS: Bacteria Urine 4+ (None Seen); Hyaline Casts Urine 0-2 /LPF (0-2); RBC Urine 0-2 /HPF (0-2); UACC Culture Trigger YES; WBC Urine >50 /HPF (0-5)
[2024-05-04] MEDS: cefuroxime axetiL 250 MG TABLET PO (09:22)
[2024-05-04 09:25] VITALS: BP 117/46; PULSE 77; RESP 18; TEMP 36.5; O2SAT 96
== END 2024-05-04 09:25 | disposition home or self-care (01) ==
PROVIDERS: Emergency Provider Emergency Medicine; PCP Internal Medicine
DX: N30.00 Acute cystitis without hematuria (principal); R30.0 Dysuria; I10 Essential (primary) hypertension; J44.9 Chronic obstructive pulmonary disease, unspecified; Z86.73 Personal history of transient ischemic attack (TIA), and cerebral infarction without residual deficits; Z79.899 Other long term (current) drug therapy; Z79.82 Long term (current) use of aspirin
CPT/HCPCS: 36415; 80048; 80076; 81001; 83690; 83735; 85025; 87086; 87088; 87186; 99283; 99284

== ENCOUNTER 2024-06-12 10:38 | Outpatient (AMB) | payer MEDICARE, MEDICAID, SELFPAY ==
[2024-06-12 10:42] VITALS: BP 122/77; PULSE 87; O2SAT 97; BMI 33.7
--- NOTE | 2024-06-12 10:42 | MHC.OFFVIS ---
Vital Signs 06/12/24 10:42 Height 5 ft 2 in Weight 184 lb BMI 33.7 BP 122/77 Blood Pressure Location Rt brachial Position Sitting Pulse 87 Pulse Source Doppler Pulse Oximetry (%) 97 Oxygen Delivery Method Room Air Intake Visit Reasons: asthma [employer] Required: Yes [employer] Name: Alena [employer]im[employer] Allergies No Known Allergies [No Known Allergies*] Allergy (Verified 05/04/24 08:03) HPI HPI asthma: Details: 62-year-old lady, former 60 pack year smoker, quit 2008, with underlying history of diastolic heart failure, prior normal sleep study, now followed for nocturnal hypoxemia and COPD.? She has been using Anoro and albuterol MDI with reasonable control of her symptoms. She also has significant underlying diastolic dysfunction with fluid retention, now well controlled on current dose of bumetanide. She denies recent acute exacerbations. [facility] Medical History Chronic constipation History of colon polyps Internal hemorrhoids CVA (cerebral vascular accident) Abdominal pain Barretts esophagus Acid reflux Dyspnea Depression Anxiety Hypertension COPD (chronic obstructive pulmonary disease) Surgical History Hx of colonoscopy History of esophagogastroduodenoscopy (EGD) H/O section History of appendectomy History of cholecystectomy Family History Mother Cancer Maternal Grandmother Cancer Social History Household Members: None Alcohol intake: never Patient Tobacco Use Status: Never used Tobacco Current occupational status: disabled Review of Systems Const Denies daytime sleepiness, Denies excessive sweating, Denies fatigue, Denies fever(s), Denies lethargy, Denies malaise, Denies night sweats, Denies snoring and Denies weight loss Eyes Denies blurry vision and Denies itchy eyes ENT Denies nasal congestion, Denies post nasal drip, Denies sinus pain, Denies sinus pressure and Denies other ( Thrush) Card Denies chest pain, Denies pedal edema, Denies dyspnea, Denies orthopnea and Denies paroxysmal nocturnal dyspnea Resp Denies cough, Denies hemoptysis, Denies excessive phlegm production, Denies dyspnea, Denies snoring and Denies wheezing GI Denies abdominal pain and Denies heartburn Musc Denies myalgias, Denies arthralgias and Denies joint swelling Skin/Breast Denies rash Neuro Denies memory loss and Denies seizure-like activity Psych Denies abnormal sleep pattern, Denies anxiety and Denies memory loss Endo Denies excessive sweating, Denies fatigue and Denies heat intolerance Zhen/Lymph Denies easy bruising Aller/Immun Denies itchy eyes, Denies seasonal rhinorrhea and Denies wheezing Physical Exam Vital Signs: Last Vital Signs Pulse 87 06/12/24 10:42 BP 122/77 06/12/24 10:42 Pulse Ox 97 06/12/24 10:42 Oxygen Delivery Method Room Air 06/12/24 10:42 BMI result Body Mass Index 33.7 Const General: no acute distress and alert Nutritional Appearance: not obese Orientation/consciousness: Other orientation findings ( oriented) HEENT Head: Yes atraumatic Eyes General: appearance normal, both eyes and all related structures Sclerae: sclerae normal EOM: EOMs intact bilaterally Neck Neck: Yes supple Lymphatic: no lymphadenopathy noted Resp Effort & Inspection: normal respiratory effort and no use of accessory muscles Auscultation: clear to auscultation bilaterally Cardio Rate: regular rate Rhythm: regular rhythm Heart sounds: no gallops, no murmurs and no rubs Skin General skin exam: other ( warm) Extrem General: No clubbing, No cyanosis and No edema Assessment & Plan Assessment & Plan (1) COPD (chronic obstructive pulmonary disease): Code(s): J44.9 - Chronic obstructive pulmonary disease, unspecified Category: Medical Plan: Well controlled on current regimen of Anoro and albuterol MDI. Continue current regimen. (2) Dyspnea on exertion: Code(s): R06.09 - Other forms of dyspnea Category: Medical Plan: Well controlled on current diuretic regimen. Continue Bumex at 1 mg daily. Coding Level of Care Code Est Pt Level 4 (09396) Complex EM visit Add On G2211 Diagnoses COPD (chronic obstructive pulmonary disease) J44.9 Dyspnea on exertion R06.09
--- OUTSIDE RECORDS SUMMARY | 2024-06-12 10:47 | XMS_ITS | Continuity of Care Document ---
Demographics Address [address] [place] [address] Mobile Phone Home Phone Preferred Language es Marital Status Legally Rastafarian Affiliation Taoist (non-Cat holic, non-specific) Race Unknown Ethnic Group or Author Organization [facility] Address [address] [address] Phone Care Team Providers Care Vp Compliance Name Role Phone Calin Dye DO Unavailable Unavailable Advance Directives Directive Yes / No Effective Date File Name No Information Encounters Encounter Description Practice Location Reason(s) For Visit Diagnoses Date Provider Providers Copied on Encounter [facility], [address] [place] [address], [id number], [place] tel:[phone] [place] No Information [address] [place], [place], [id number] , [place]. tel:[phone] Family History Family Member Type Diagnosis Age At Onset No Information Payers Payer name Insurance type Covered green party ID Authoriza tion(s) No Information Social History Type Description Quantity Date Captured Comments Sex Female Smoking Status No Information Chief Complaint And Reason For Visit No Information Reason For Referral Reason For Referral No Information History Of Present Illness Encounter Date Complaint History Of Prese nt Illness No Information Functional Status Date Functional Assessmen t No Information Instructions Date Instruction Additional Infor mation No Information Assessments Type Assessment Date No Information Patient Care Teams Name Effective Dates (start - stop) Status Members No Information
== END 2024-06-12 10:53 | disposition home or self-care (01) ==
PROVIDERS: PCP Internal Medicine; Visit Provider Internal Medicine Pulmonary Disease
DX: J44.9 Chronic obstructive pulmonary disease, unspecified (principal); R06.09 Other forms of dyspnea
CPT/HCPCS: 99214; G2211

== ENCOUNTER → 2024-06-12 10:38 | Outpatient (BNVA) | payer MEDICARE, MEDICAID, SELFPAY | PROVIDERS: PCP Internal Medicine; Visit Provider Internal Medicine Pulmonary Disease | DX: J44.9 Chronic obstructive pulmonary disease, unspecified (principal); R06.09 Other forms of dyspnea | CPT/HCPCS: 99212 ==

== ENCOUNTER 2024-06-25 13:35 | Outpatient (AMB) | payer MEDICARE, MEDICAID, SELFPAY ==
--- OUTSIDE RECORDS SUMMARY | 2024-06-25 13:38 | XMS_ITS | Continuity of Care Document ---
Demographics Address [address] [facility] [place] [address] Mobile Phone Home Phone Preferred Language es Marital Status Legally Synagogue Affiliation Congregation (non-Cat holic, non-specific) Race Unknown Ethnic Group or Author Organization [facility] Address [address] [address] Phone Care Team Providers Care Subwarehouse Supervisor Name Role Phone Calin Dye DO Unavailable Unavailable Advance Directives Directive Yes / No Effective Date File Name No Information Encounters Encounter Description Practice Location Reason(s) For Visit Diagnoses Date Provider Providers Copied on Encounter [facility], [address] [place] [address], [id number], [place] tel:[phone] [place] No Information [address]. [address] [place], [place], [id number] , [place]. tel:[phone] Family History Family Member Type Diagnosis Age At Onset No Information Payers Payer name Insurance type Covered libertarian ID Authoriza tion(s) No Information Social History [...]
[2024-06-25 13:56] VITALS: BP 135/64; PULSE 75; BMI 33.7
--- NOTE | 2024-06-25 13:56 | A.OFFVIS_ITS ---
Vital Signs 06/25/24 13:56 Height 5 ft 2 in Weight 184 lb BMI 33.7 BP 135/64 Blood Pressure Location Lt brachial Position Sitting Pulse 75 Intake Visit Reasons: diarrhea/ Ashley pt Intake Note: Gabrielle presents in the office for follow up after scopes CC: She denies any GI concerns - no diarrhea or stomach pains at this time. Lithographic Photographer Required: Yes Allergies No Known Allergies [No Known Allergies*] Allergy (Verified 06/25/24 14:05) HPI Comments Details: 63 y.o F with PMH of barretts, polyps, who is here for post procedure follow up. Accompanied by her daughter. No acute issues today including abd pain, N,V,D. Takes protonix 40 for GERD but continues to report reflux sx at least 3 times a week. 07/19/23: EGD/colo Dr Vines ESOPHAGUS: GE junction at 35 cms, small hiatal hernia 35 to 37 cms. A few 7-8 mm islands of Willett's at the GE junction - biopsied. STOMACH: A few 3-4 mm benign appearing polyps in the gastric body - biopsies were obtained. Colonoscopy Findings: One small polyp removed Moderate to severe diverticulosis seen in the left colon Moderate hemorrhoids on retroflexed exam. A. Gastric polyps: Fundic gland polyp with focal minimal chronic inactive inflammation (1 piece); negative for H pylori, intestinal metaplasia and dysplasia. B. Esophagus, distal, biopsy: Squamocolumnar mucosa with mild chronic active inflammation and focal intestinal metaplasia; negative for dysplasia (see comment). C. Colon, ascending, polyp: Tubular adenoma; negative for high-grade dysplasia and carcinoma. Comment: (B): These findings are consistent with Willett?s esophagus if the biopsies were taken from above the anatomic gastroesophageal junction. Clinical and endoscopic correlation is advised. [facility] Medical History Chronic constipation History of colon polyps Internal hemorrhoids CVA (cerebral vascular accident) Abdominal pain Barretts esophagus Acid reflux Dyspnea Depression Anxiety Hypertension COPD (chronic obstructive pulmonary disease) Surgical History Hx of colonoscopy History of esophagogastroduodenoscopy (EGD) H/O section History of appendectomy History of cholecystectomy Family History Mother Cancer Maternal Grandmother Cancer Social History Household Members: None Alcohol intake: never Patient Tobacco Use Status: Never used Tobacco Current occupational status: disabled Review of Systems Const All systems reviewed & are unremarkable except as noted in HPI and below Physical Exam Vital Signs: Last Vital Signs Pulse 75 06/25/24 13:56 BP 135/64 06/25/24 13:56 BMI result Body Mass Index 33.7 No apparent distress Nonicteric Abdomen soft, nondistended Alert and oriented x3, needs assistance standing up Assessment & Plan Assessment & Plan (1) Acid reflux: Code(s): K21.9 - Gastro-esophageal reflux disease without esophagitis Category: Medical (2) 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 SSBE: Continues to have breakthrough sx despite protonix. Reviewed risk factors including obesity, HH. Discussed that no dysplasia on recent bx. Will likely need lifelong PPI. Also reviewed measures as below to prevent reflux. Plan: - Switch to omprazole 20 BID - Avoid laying down for at least 60-120 mins post meals - Keep HOB elevated 30-40deg when sleeping/napping. Wedge pillow Rxed - Handouts provided on diet and lifestyle mods - Repeat EGD in 5 years can be considered for surveillance 2. Colon polyp: Repeat recommended in 5 years. - Can be done at the same time as EGD in 2028, see above. 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
== END 2024-06-25 16:27 | disposition home or self-care (01) ==
PROVIDERS: PCP Internal Medicine; Visit Provider Internal Medicine
DX: K21.9 Gastro-esophageal reflux disease without esophagitis (principal); K22.70 Barrett's esophagus without dysplasia; K44.9 Diaphragmatic hernia without obstruction or gangrene; Z86.0100 Personal history of colon polyps, unspecified
CPT/HCPCS: 99214

== ENCOUNTER → 2024-06-25 13:35 | Outpatient (BNVA) | payer MEDICARE, MEDICAID, SELFPAY | PROVIDERS: PCP Internal Medicine; Visit Provider Internal Medicine | DX: K22.70 Barrett's esophagus without dysplasia (principal); K21.9 Gastro-esophageal reflux disease without esophagitis; K44.9 Diaphragmatic hernia without obstruction or gangrene; Z86.0100 Personal history of colon polyps, unspecified | CPT/HCPCS: 99212 ==

== ENCOUNTER 2024-08-07 12:57 | Outpatient (REF) | payer MEDICARE, MEDICAID, SELFPAY ==
--- OUTSIDE RECORDS SUMMARY | 2024-08-07 14:07 | XMS_ITS | Encounter Summary ---
Author Organization [employer] Address [address] [place] [address] [address] [place] [address] Care Team Providers Care Park Worker Name Role Phone Shannon Ordaz MD Primary Care Provider + Benjie Pineda Unavailable Unavailable Reason for Visit * Reason Onset Date Comments Appointment Request 08/26/2022 Encounter Details Date Type Department Care Team ([facility] st Contact Info) Description 08/26/2022 Telephone [facility] MED[facility]INE [address] [place], [place] [phone] Shannon Ordaz MD [address] [place], [place] [phone] Appointment Request Social History Tobacco Use Types Packs/Day Years Used Date Smoking Tobacco: Never Assessed Comments Unknown Sex and Gender Information Value Date Recorded Sex Assigned at Female 04/26/2022 10:34 AM EDT Legal Sex Female 10:34 AM EDT Gender Identity Female 04/26/2022 10:34 AM EDT Sexual Orientation Straight 05/31/2022 9: 45 AM EST documented as of this encounter Miscellaneous Notes * Telephone Encounter - Allan Maldonado - 08/26/2022 11:48 AM EST Tc from pt requesting to r/s appt on 08/24/22 ( RV 3m re labs/htn RCL ) Please contact pt at [phone] documented in this encounter Plan of Treatment Not on file documented as of this encounter Visit Diagnoses Not on filedocumented in this encounter Additional Health Concerns Assessment Noted Time PHQ-9 Depression Total Score: 9 08/19/19 23 11:05 AM EST documented as of this encounter Care Teams Park Worker Relationship Specialty Start Date End Date Shannon Ordaz MD [address] [place] [address] PCP - General Family Medicine 06/11/19 Benjie Pineda FNP [address] [place] [address] Nurse Practitioner Family Medicine 05/23/23 [facility] 04/25/24 05/03/24 documented as of this encounter
--- OUTSIDE RECORDS SUMMARY | 2024-08-07 14:07 | XMS_ITS | Encounter Summary ---
Author Organization [employer] Address [address] [place] [address] 7t [place] [address] Care Team Providers Care Metal Burnisher Name Role Phone Shannon Ordaz MD Primary Care Provider + Benjie Pineda Unavailable Unavailable Encounter Details Date Type Department Care Team (Late st Contact Info) Description 08/30/2022 Orders Only [facility] MEDICINE [address] [place], [place] [phone] Radha Hubbard MD [address] [place], [place] [phone] Neuropathy involving both lower extremities (Primary Dx) Social History Tobacco Use Types Packs/Day Years Used Date Smoking Tobacco: Never Assessed Comments Unknown Sex and Gender Information Value Date Recorded Sex Assigned at Female 04/26/2022 10:34 AM EDT Legal Sex Female 10:34 AM EDT Gender Identity Female 04/26/2022 10:34 AM EDT Sexual Orientation Straight 05/31/2022 9: 45 AM EST documented as of this encounter Plan of Treatment Not on file documented as of this encounter Visit Diagnoses Diagnosis Neuropathy involving both lower extremities- Primary documented in this encounter Additional Health Concerns Assessment Noted Time PHQ-9 Depression Total Score: 9 08/19/19 23 11:05 AM EST documented as of this encounter Care Teams Metal Burnisher Relationship Specialty Start Date End Date Shannon Ordaz MD [address] [place] [address] PCP - General Family Medicine 06/11/19 Benjie Pineda FNP [address] [place] [address] Nurse Practitioner Family Medicine 05/23/23 [facility] 04/25/24 05/03/24 documented as of this encounter
--- OUTSIDE RECORDS SUMMARY | 2024-08-07 14:07 | XMS_ITS | Encounter Summary ---
Author Organization [employer] Address [address] [place] [address] 7 [place] [address] Care Team Providers Care Rf Engineer Name Role Phone Shannon Ordaz MD Primary Care Provider + Benjie Pineda Unavailable Unavailable Reason for Visit * Reason Onset Date Comments Referral 08/26/2022 Encounter Details Date Type Department Care Team (Late st Contact Info) Description 08/26/2022 Telephone [facility] MEDICINE [address] [place], [place] [phone] Shannon Ordaz MD [address] [place], [place] [phone] Referral Social History Tobacco Use Types Packs/Day Years Used Date Smoking Tobacco: Never Assessed Comments Unknown Sex and Gender Information Value Date Recorded Sex Assigned at Female 04/26/2022 10:34 AM EDT Legal Sex Female 10:34 AM EDT Gender Identity Female 04/26/2022 10:34 AM EDT Sexual Orientation Straight 05/31/2022 9: 45 AM EST documented as of this encounter Miscellaneous Notes * Telephone Encounter - Sujey Hicks RN - 08/30/2022 3:08 PM EST TC returned to pt [phone] to inform pt provider has placed PT referral today. Pt verbalized understanding. RN will send message to coronary clinical specialist to ensure referral gets processed as pt's appt is on 09/03/22. * Telephone Encounter - Alta Daniel - 08/30/2022 12:03 PM EST Tc from pt checking status on physical therapy referral . * Telephone Encounter - Kellikeegan Jaime Storm - 08/26/2022 4:28 PM EST Tc from pt returning call regarding missing information she didn't have for the referral needed forphysical therapy. Location: [address] [address] Phone #: [phone] Please contact pt at [phone] documented in this encounter Plan of Treatment Not on file documented as of this encounter Visit Diagnoses Not on filedocumented in this encounter Additional Health Concerns Assessment Noted Time PHQ-9 Depression Total Score: 9 08/19/19 23 11:05 AM EST documented as of this encounter Care Teams Rf Engineer Relationship Specialty Start Date End Date Shannon Ordaz MD [address] [place] [address] PCP - General Family Medicine 06/11/19 Benjie Pineda FNP [address] [place] [address] Nurse Practitioner Family Medicine 05/23/23 [facility] 04/25/24 05/03/24 documented as of this encounter
--- OUTSIDE RECORDS SUMMARY | 2024-08-07 14:07 | XMS_ITS | Encounter Summary ---
Author Organization [employer] Address [address] [facility] 7t [place] [address] Care Team Providers Care Propellant Charge Loader Name Role Phone Shannon Ordaz MD Primary Care Provider + Benjie Pineda Unavailable Unavailable Reason for Visit * Reason Comments Med Refill Encounter Details Date Type Department Care Team ([facility] st Contact Info) Description 08/30/2023 Refill [facility] & PEDS [address] [place] [address] Shannon Ordaz MD [address] [place] [address] Social History Tobacco Use Types Packs/Day Years Used Date Smoking Tobacco: Former Cigarettes Passive Smoke Exposure: Past Smokeless Tobacco: Never Alcohol Use Standard Drinks/Week Comments Never 0 (1 standard drink = 0.6 oz pur e alcohol) Depression Answer Date Recorded Patient Health Questionnaire-9 Score 2 08/02/2023 Patient Health Questionnaire-9 Score 2 08/02/2023 Last PHQ-9: Questionnaire Data Not on file 0 08/02/2023 Housing Stability Answer Date Recorded What is your housing situation today? I have adelfo lazo 04/12/[address] you li ve. Do you have problems with any of the following? None of the above 04/12/2023 Food Insecurity Answer Date Recorded Within the past 12 months, y ou worried that your food would run out before you got money to buy more: Never True 04/12/2023 Within the past 12 months,th e food you bought just didn't last and you didn't have enough money to get more: Never True 10/ Transportation Answer Date Recorded In the past 12 months, has l ack of transportation kept you from medical appts, meetings, work or from getting things needed for daily living? No 04/12/2023 Utilities Answer Date Recorded In the past 12 months, has t he electric, gas, oil or water company threatened to shut off services in your home? No 04/12/2023 Depression Answer Date Recorded Patient Health Questionnaire-2 Score 0 08/02/2023 Comments Unknown Sex and Gender Information Value [...] Assessment Noted Time PHQ-9 Depression Total Score: 2 08/02/19 24 9:41 AM EST documented as of this encounter Care Teams Propellant Charge Loader Relationship Specialty Start Date End Date Shannon Ordaz MD [address] [place] [address] PCP - General Family Medicine 06/11/19 Benjie Pineda FNP [address] [place] [address] Nurse Practitioner Family Medicine 05/23/23 [facility] 04/25/24 05/03/24 documented as of this encounter
--- OUTSIDE RECORDS SUMMARY | 2024-08-07 14:07 | XMS_ITS | Encounter Summary ---
Author Organization [employer] Address [address] [facility] 7t [place] [address] Care Team Providers Care Ems Coordinator Name Role Phone Shannon Ordaz MD Primary Care Provider + Benjie Pineda Unavailable Unavailable Reason for Visit * Reason Onset Date Comments Hospital Follow-up 03/22/2024 Encounter Details Date Type Department Care Team ([facility] st Contact Info) Description 03/22/2024 Telephone [facility] MEDICINE [address] [place], [place] [phone] Shannon Ordaz MD [address] [place], [place] [phone] Hospital Follow-up Social History Tobacco Use Types Packs/Day Years Used Date Smoking Tobacco: Former Cigarettes Passive Smoke Exposure: Past Smokeless Tobacco: Never Alcohol Use Standard Drinks/Week Comments Never 0 (1 standard drink = 0.6 oz pur e alcohol) Depression Answer Date Recorded Patient Health Questionnaire-9 Score 2 11/15/2023 Patient Health Questionnaire-9 Score 2 11/15/2023 Last PHQ-9: Questionnaire Data Not on file 0 11/15/2023 Housing Stability Answer Date Recorded What is your housing situation today? I have adelfo lazo 04/12/[address] you li ve. Do you have problems with any of the following? None of the above 04/12/2023 Food Insecurity Answer Date Recorded Within the past 12 months, y ou worried that your food would run out before you got money to buy more: Often true 09/26/2023 Within the past 12 months,th e food you bought just didn't last and you didn't have enough money to get more: Often true 06/2023 Transportation Answer Date Recorded In the past 12 months, has l ack of transportation kept you from medical appts, meetings, work or from getting things needed for daily living? Yes, it has kept me from medical appointments or getting medications. 09/26/2023 Utilities Answer Date Recorded In the past 12 months, has t he electric, gas, oil or water company threatened to shut off services in your home? No 04/12/2023 Depression Answer Date Recorded Patient Health Questionnaire-2 Score 0 11/15/2023 Comments Unknown Sex and Gender Information Value Date Recorded Sex Assigned at Female 04/26/2022 10:34 AM EDT Legal Sex Female 10:34 AM EDT Gender Identity Female 04/26/2022 10:34 AM EDT Sexual Orientation Straight 05/31/2022 9: 45 AM EST documented as of this encounter Miscellaneous Notes * Telephone Encounter - Alta Daniel - 03/22/2024 12:34 PM EDT Tc from pt requesting a HDF appt. Hospital: [facility] Date of admission: 03/17/24 Discharge date: 03/21/24 Diagnosed: diarrhea and rectal bleeding documented in this encounter Plan of Treatment Not on file documented as of this encounter Goals Goal Patient Goal Type Associated Problems Recent Progress Patient-Stated? Author Blood Pressure < 140/90 Blood Pressure 141/85(2024 9:27 AM EST) No Piers-Gambl e, Yanet, PharmD Record your blood pressure once per day Blood Pressure No Piers-Gambl e, Yanet, PharmD Take your medication every day Lifestyle No Piers-Gambl e, Yanet, PharmD documented as of this encounter Visit Diagnoses Not on filedocumented in this encounter Additional Health Concerns Assessment Noted Time PHQ-9 Depression Total Score: 2 11/15/19 24 11:12 AM EDT documented as of this encounter Care Teams Ems Coordinator Relationship Specialty Start Date End Date Shannon Ordaz MD [address] [place] [address] PCP - General Family Medicine 12/16/19 Benjie Pineda FNP [address] [place] [address] Nurse Practitioner Family Medicine 05/23/23 [facility] 04/25/24 05/03/24 documented as of this encounter
--- OUTSIDE RECORDS SUMMARY | 2024-08-07 14:07 | XMS_ITS | Encounter Summary ---
Author Organization [employer] Address [address] [facility] 7t [place] [address] Care Team Providers Care Anaesthesiologist Name Role Phone Shannon Ordaz MD Primary Care Provider + Benjie Pineda Unavailable Unavailable Encounter Details Date Type Department Care Team (Late st Contact Info) Description 07/21/2023 Abstract [facility] MEDICINE [address] [place], [place] [phone] Shannon Ordaz MD [address] [place], [place] [phone] Social History Tobacco Use Types Packs/Day Years Used Date Smoking Tobacco: Never Passive Smoke Exposure: Never Smokeless Tobacco: Never Alcohol Use Standard Drinks/Week Comments Never 0 (1 standard drink = 0.6 oz pur e alcohol) Depression Answer Date Recorded Patient Health Questionnaire-9 Score 3 05/31/2023 Patient Health Questionnaire-9 Score 3 05/31/2023 Last PHQ-9: Questionnaire Data Not on file 1 08/01/2022 Housing Stability Answer Date Recorded What is [...] enough money to get more: Never True Transportation Answer Date Recorded In the past [...] Date Recorded Patient Health Questionnaire-2 Score 0 05/31/2023 Comments Unknown Sex and Gender Information Value Date Recorded Sex Assigned at Female 04/26/2022 10:34 AM EDT Legal Sex Female 10:34 AM EDT Gender Identity Female 04/26/2022 10:34 AM EDT Sexual Orientation Straight 05/31/2022 9: 45 AM EST documented as of this encounter Plan of Treatment Not on file documented as of this encounter Procedures Procedure Name Priority Date/Time Associated Diagnosis Comments COLONOSCOPY Routine 07/19/2023 documented in this encounter Results * (ABNORMAL) Colonoscopy (07/19/2023) Colonoscopy Abnormal(A ) Normal [facility] Comment:TA us Shannon Ordaz MD HEALTH MAINTENANCE Edite d Result - Final [facility] [address] [place] [phone] documented in this encounter Visit Diagnoses Not on filedocumented in this encounter Additional Health Concerns Assessment Noted Time PHQ-9 Depression Total Score: 3 05/31/20 23 10:47 AM EST documented as of this encounter Care Teams Anaesthesiologist Relationship Specialty Start Date End Date Shannon Ordaz MD [address] [place] [address] PCP - General Family Medicine 06/11/19 Benjie Pineda FNP [address] [place] [address] Nurse Practitioner Family Medicine 05/23/23 [facility] 04/25/24 05/03/24 documented as of this encounter
--- OUTSIDE RECORDS SUMMARY | 2024-08-07 14:07 | XMS_ITS | Clinical Summary ---
Author Organization [facility] Address [address] [place] [address] Phone Care Team Providers Care Process Mechanic Name Role Phone Physician, No Pcp Primary Care Provider Unavaila ble Allergies No known active allergies Social History Tobacco Use Types Packs/Day Years Used Date Smoking Tobacco: Never Assessed Comments No Sex and Gender Information Value Date Recorded Sex Assigned at Not on file Legal Sex Female 1:18 AM EST Gender Identity Female 05/01/2024 3:05 PM EST Sexual Orientation Not on file Last Filed Vital Signs Vital Sign Reading Time Taken Comments Blood Pressure 107/64 05/01/2024 1:44 PM EST Pulse 76 05/01/2024 1:44 PM EST Temperature 36.9 ??C (98.4 ??F) 05/01/2024 8:41 AM ES T Respiratory Rate 18 05/01/2024 1:44 PM EST Oxygen Saturation 97% 05/01/2024 1:44 PM EST Inhaled Oxygen Concentration - - Weight 82.1 kg (181 lb) 05/01/2024 8:41 AM EST Height 152.4 cm (5') 05/01/2024 8:41 AM EST Body Mass Index 35.35 05/01/2024 8:41 AM EST Plan of Treatment Health Maintenance Due Date Last Done Comments Cervical Cancer Screening: Pap Smear 12/20/1979 RSV Immunization Patients 60+ Years Old (1 - Risk 60-74 years 1-dose series) 2018 DTaP,Tdap,and Td Vaccines (2 - Td or Tdap) 06/05/2020 05/08/2020 Breast Cancer Screening 12/23/2023 12/22/2021 Cholesterol Screening (Lipid Panel) 01/17/2024 Colorectal Cancer Screening: Colonoscopy 01/17/2024 Falls Risk Assessment 01/17/2024 Hepatitis C Screening 01/17/2024 Medicare Annual Wellness Visit 01/17/2024 Osteoporosis Screening (Bone Density Screening) 01/17/2024 Social Influencers of Health Screening 01/17/2024 COVID-19 Vaccine ( season) 2024 11/25/2020, 10/29/2020 Depression Screening 11/14/2024 11/15/2023 Hypertension/CHF/CAD Annual BMP Blood Test 05/01/2025 05/01/2024, 04/26/2024, 02/13/2024 Zoster Vaccines Completed 01/13/2023, 05/08/2020 Pneumococcal Vaccine: 50+ Years Completed 01/09/2024, 06/03/2020, 10/18/2018 Pneumococcal Vaccine: Pediatrics (0 to 5 Years) and At-Risk Patients (6 to 64 Years) Completed 01/09/2024, 06/03/2020, 10/18/2018 Influenza Vaccine Completed 03/19/2024, , 09/24/2021, Additional history exists HIB Vaccines Aged Out No longer eligi ble based on patient's age to complete this topic HPV Vaccines Aged Out No longer eligi ble based on patient's age to complete this topic Hepatitis A Vaccines Aged Out No long er eligible based on patient's age to complete this topic Hepatitis B Vaccines Aged Out No long er eligible based on patient's age to complete this topic IPV Vaccines Aged Out No longer eligi ble based on patient's age to complete this topic MMR Vaccines Aged Out No longer eligi ble based on patient's age to complete this topic Meningococcal ACWY Vaccine Aged Out N o longer eligible based on patient's age to complete this topic Meningococcal B Vacine Aged Out No lo nger eligible based on patient's age to complete this topic RSV Immunization Patients Under 20 months Aged Out No longer eligible based on patient's age to complete this topic Varicella Vaccines Aged Out No longer eligible based on patient's age to complete this topic Procedures Procedure Name Priority Date/Time Associated Diagnosis Comments BASIC METABOLIC PANEL STAT 05/01/2024 8:57 AM EST from Last 3 Months or Most Recently Relevant to Health Maintenance Results * (ABNORMAL) Basic metabolic panel (05/01/2024 8:57 AM EST) Sodium 143 133 - 145 mmol/L LAB CHEMISTRY METHOD 05/01/2024 9:21 AM [facility] Potassium 4.5 3.5 - 5.5 mmol/L LAB CHEMISTRY METHOD 05/01/2024 9:21 AM [facility] Chloride 107 96 - 110 mmol/L LAB CHEMISTRY METHOD 05/01/2024 9:21 AM [facility] CO2 29 21 - 32 mmol/L LAB CHEMISTRY METHOD 05/01/2024 9:21 AM [facility] Anion Gap 7 3 - 11 LAB CHEMISTRY METHOD 05/01/2024 9:21 AM [facility] Glucose 109(H) 70 - 100 mg/dL LAB CHEMISTRY METHOD 05/01/2024 9:21 AM [facility] BUN 16 5 - 25 mg/dL LAB CHEMISTRY METHOD 05/01/2024 9:21 AM [facility] Creatinine 1.25(H) 0.50 - 1.10 mg/dL LAB CHEMISTRY METHOD 05/01/2024 9:21 AM [facility] eGFR 48(L) >=60 mL/min/1. 73m2 LAB CHEMISTRY METHOD 05/01/2024 9:21 AM [facility] Comment:Calculation based on the??Chronic Kidney Disease Epidemiology Collaboration (CKD-EPI) equation refit??without adjustment for race. BUN/Creatinine Ratio 12.8 LAB CHEMISTRY METHOD 05/01/2024 9:21 AM [facility] Calcium 9.0 8.5 - 10.5 mg/dL LAB CHEMISTRY METHOD 05/01/2024 9:21 AM [facility] Blood Venous blood specimen / Unknown Venipuncture / Unknown 05/01/2024 8:57 AM EST 05/01/2024 9:00 AM EST us Keon Nunes DO LAB BLOOD ORDERABLES Final Result [facility] ([facility]) [facility] [address] [place] [address], [place] [phone] from Last 3 Months or Most Recently Relevant to Health Maintenance Insurance MEDICAID - [place] MEDICARE Advance Directives Documents on File Type Date Recorded Patient Wash Mill Operator Expl anation Health Care Decision (hx) 04/26/2024 KELI SANDERSON DIRECTIVE Care Teams Process Mechanic Relationship Specialty Start Date End Date Physician, No Pcp PCP - General 05/01/24
--- OUTSIDE RECORDS SUMMARY | 2024-08-07 14:07 | XMS_ITS | Encounter Summary ---
Author Organization [employer] Address [address] [place] [address] 7t [place] [address] Care Team Providers Care Grievance And Appeals Specialist Name Role Phone Shannon Ordaz MD Primary Care Provider + Benjie Pineda Unavailable Unavailable Reason for Visit * Reason Onset Date Comments FYI 03/22/2024 Encounter Details Date Type Department Care Team ([facility] st Contact Info) Description 03/22/2024 Telephone [facility] MEDICINE [address] [place], [place] [phone] Shannon Ordaz MD [address] [place], [place] [phone] FY Social History Tobacco Use Types Packs/Day Years [...] encounter Miscellaneous Notes * Telephone Encounter - Kierra Baker RN - 03/22/2024 9:05 AM EDT Noted. Will forward to PCP as FYI. * Telephone Encounter - Jose Peters - 03/22/2024 8:53 AM EDT Tc jordan Crump at [facility] calling to inform the provider attempted to start services on 03/22 however patient refused due to having a Cardiology appt will re attempt on 03/23 to start services documented in this encounter Plan of Treatment [...] Noted Time PHQ-9 Depression Total Score: 2 05/21/20 24 11:12 AM EDT documented as of this encounter Care Teams Grievance And Appeals Specialist Relationship Specialty Start Date End Date Shannon Ordaz MD [address] [place] [address] PCP - General Family Medicine 06/11/19 Benjie Pineda FNP [address] [place] [address] Nurse Practitioner Family Medicine 05/23/23 [facility] 04/25/24 05/03/24 documented as of this encounter
--- OUTSIDE RECORDS SUMMARY | 2024-08-07 14:07 | XMS_ITS | Encounter Summary ---
Author Organization [employer] Address [address] [place] [address] 7t [place] [address] Care Team Providers Care Fondant Machine Operator Name Role Phone Shannon Ordaz MD Primary Care Provider + Benjie Pineda Unavailable Unavailable Reason for Visit * Reason Onset Date Comments Medication Question 11/16/2022 Encounter Details Date Type Department Care Team ([facility] st Contact Info) Description 11/16/2022 Telephone [facility] MEDICINE [address] [place], [place] [phone] Shannon Ordaz MD [address] [place], [place] [phone] Medication Question Social History Tobacco Use Types Packs/Day Years Used Date Smoking Tobacco: Never Smokeless Tobacco: Never Alcohol Use Standard Drinks/Week Comments Never 0 (1 standard drink = 0.6 oz pur e alcohol) Comments Unknown Sex and Gender Information Value Date Recorded Sex Assigned at Female 04/26/2022 10:34 AM EDT Legal Sex Female 10:34 AM EDT Gender Identity Female 04/26/2022 10:34 AM EDT Sexual Orientation Straight 05/31/2022 9: 45 AM EST COVID-19 Exposure Response Date Recorded In the last 10 days, have yo u been in contact with someone who was confirmed or suspected to have Coronavirus/COVID-19? No / Unsure 11/15/2022 9:58 AM EDT documented as of this encounter Miscellaneous Notes * Telephone Encounter - Katheryn Sher RN - 11/16/2022 11:44 AM EDT Note from 11/15 reviewed, betamethasone cream and lidocaine patches were discussed however no new rxs sent. Please send rxs if indicated. Also noted inhalers were discussed however med[facility]ch reviewed and pt.'s driller's offsider prescribes them. * Telephone Encounter - Alta Daniel - 11/16/2022 10:43 AM EDT Tc from pt requesting status on a medication pcp was going to prescribe on last visit 11/15/22. States called pharmacy and they do not have any new script . documented in this encounter Plan of Treatment Not on file documented as of this encounter Visit Diagnoses Not on filedocumented in this encounter Additional Health Concerns Assessment Noted Time PHQ-9 Depression Total Score: 12 10/18/ 023 11:08 AM EDT documented as of this encounter Care Teams Fondant Machine Operator Relationship Specialty Start Date End Date Shannon Ordaz MD [address] [place] [address] PCP - General Family Medicine 06/11/19 Benjie Pineda FNP [address] [place] [address] Nurse Practitioner Family Medicine 05/23/23 [facility] 04/25/24 05/03/24 documented as of this encounter
--- OUTSIDE RECORDS SUMMARY | 2024-08-07 14:08 | XMS_ITS | Encounter Summary ---
Author Organization [employer] Address [address] [place] [address] 7t [place] [address] Care Team Providers Care Data Communications Analyst Name Role Phone Shannon Ordaz MD Primary Care Provider + Benjie Pineda Unavailable Unavailable Reason for Visit * Reason Comments Med Refill Encounter Details Date Type Department Care Team ([facility] st Contact Info) Description 07/26/2022 Refill [facility] MED[facility]INE [address] [place] [address] Benjie Pineda FNP Major depressive disorder, recurrent episode with mood-congruent psychotic features (CMS/HCC) Social History Tobacco Use Types Packs/Day Years [...] as of this encounter Visit Diagnoses Diagnosis Major depressive disorder, recurrent episode with mood-congruent psychotic features (CMS/HCC) documented in this encounter Additional Health Concerns Assessment Noted Time PHQ-9 Depression Total Score: 11 023 9:08 AM EST documented as of this encounter Care Teams Data Communications Analyst Relationship Specialty Start Date End Date Shannon Ordaz MD [address] [place] [address] PCP - General Family Medicine 06/11/19 Benjie Pineda FNP [address] [place] [address] Nurse Practitioner Family Medicine 05/23/23 [facility] 04/25/24 05/03/24 documented as of this encounter
--- OUTSIDE RECORDS SUMMARY | 2024-08-07 14:08 | XMS_ITS | Encounter Summary ---
Author Organization [employer] Address [address] [place] [address] 7t [place] [address] Care Team Providers Care Cut Filer Name Role Phone Shannon Ordaz MD Primary Care Provider + Benjie Pineda Unavailable Unavailable Encounter Details Date Type Department Care Team (Late st Contact Info) Description 03/01/2023 Abstract [facility] MEDICINE [address] [place], [place] [phone] Shannon Ordaz MD [address] [place] [address] Social History Tobacco Use Types Packs/Day Years [...] Assessment Noted Time PHQ-9 Depression Total Score: 8 02/02/20 23 11:15 AM EDT documented as of this encounter Care Teams Cut Filer Relationship Specialty Start Date End Date Shannon Ordaz MD [address] [place], [place] [phone] PCP - General Family Medicine 06/11/19 Benjie Pineda FNP [address] [place] [address] Nurse Practitioner Family Medicine 05/23/23 [facility] 04/25/24 05/03/24 documented as of this encounter
--- OUTSIDE RECORDS SUMMARY | 2024-08-07 14:08 | XMS_ITS | Encounter Summary ---
Author Organization [employer] [facility] [employer] Address [address] [facility] 7t [place] [address] Care Team Providers Care Rv Parts And Service Director Name Role Phone Shannon Ordaz MD Primary Care Provider + Benjie Pineda Unavailable Unavailable Reason for Visit * Reason Comments Med Refill Encounter Details Date Type Department Care Team (Late st Contact Info) Description 07/11/2024 Refill [facility] MED[facility]INE [address] [place], [place] [phone] Shannon Ordaz MD [address] [place] [address] Mixed hyperlipidemia; Anxiety and depression Social History Tobacco Use Types Packs/Day Years [...] Patient Health Questionnaire-2 Score 0 11/15/2023 Comments No Sex and Gender Information Value [...] as of this encounter Visit Diagnoses Diagnosis Mixed hyperlipidemia Anxiety and depression documented in this encounter Additional Health Concerns Assessment Noted Time PHQ-9 Depression Total Score: 2 11/15/19 24 11:12 AM EDT documented as of this encounter Care Teams Rv Parts And Service Director Relationship Specialty Start Date End Date Shannon Ordaz MD [address] [place] [address] PCP - General Family Medicine 06/11/19 Benjie Pineda FNP [address] [place] [address] Nurse Practitioner Family Medicine 05/23/23 documented as of this encounter
--- OUTSIDE RECORDS SUMMARY | 2024-08-07 14:08 | XMS_ITS | Encounter Summary ---
Author Organization [employer] Address [address] [facility] 7t [place] [address] Care Team Providers Care Sales Operations Name Role Phone Shannon Ordaz MD Primary Care Provider + Benjie Pineda Unavailable Unavailable Encounter Details Date Type Department Care Team (Late st Contact Info) Description 11/23/2023 Orders Only [facility] MEDICINE [address] [place] [address] ProviderYarelis MD Social History Tobacco Use Types Packs/Day Years [...] Procedure Name Priority Date/Time Associated Diagnosis Comments HM COLONOSCOPY Routine 05/09/2018 7:30 AM EST documented in this encounter Results * Hm Colonoscopy (05/09/2018 7:30 AM EST) us Historical Provider HEALTH MAINTENANCE Final Result documented in this encounter Visit Diagnoses Not on filedocumented in this encounter Additional Health Concerns Assessment Noted Time PHQ-9 Depression Total Score: 2 11/15/19 24 11:12 AM EDT documented as of this encounter Care Teams Sales Operations Relationship Specialty Start Date End Date Shannon Ordaz MD [address] [place] [address] PCP - General Family Medicine 06/11/19 Benjie Pineda FNP [address] [place] [address] Nurse Practitioner Family Medicine 05/23/23 [facility] 04/25/24 05/03/24 documented as of this encounter
--- OUTSIDE RECORDS SUMMARY | 2024-08-07 14:08 | XMS_ITS | Encounter Summary ---
Author Organization [employer] Address [address] [place] [address] 7t [place] [address] Care Team Providers Care Heavy Duty Truck Mechanic Name Role Phone Shannon Ordaz MD Primary Care Provider + Benjie Pineda Unavailable Unavailable Reason for Visit * Reason Comments Pre-op Exam Encounter Details Date Type Department Care Team ([facility] st Contact Info) Description 07/25/2024 9:00 AM EST Office Visit [facility] MEDICINE [address] [place], [place] [phone] Name, MD Len [address] [place] [address] Pre-op evaluation (Primary Dx) Social History Tobacco Use Types Packs/Day Years Used Date Smoking Tobacco: Former Cigarettes Passive Smoke Exposure: Past Smokeless Tobacco: Never Tobacco Cessation:Counseling Given: Not Answered Alcohol Use Standard Drinks/Week Comments Never 0 [...] AM EST documented as of this encounter Last Filed Vital Signs Vital Sign Reading Time Taken Comments Blood Pressure 141/85 07/25/2024 9:27 AM EST Pulse 79 07/25/2024 9:12 AM EST Temperature 36.7 ??C (98 ??F) 07/25/2024 9:12 AM EST Respiratory Rate 14 07/25/2024 9:12 AM EST Oxygen Saturation 97% 07/25/2024 9:12 AM EST Inhaled Oxygen Concentration - - Weight 86.6 kg (191 lb) 07/25/2024 9:12 AM EST Height 157.5 cm (5' 2 ) 07/25/2024 9:12 AM EST Body Mass Index 34.93 07/25/2024 9:12 AM EST documented in this encounter Progress Notes * Len Bynum MD - 07/25/2024 9:00 AM EST Subjective Patient ID: Gabrielle Nolan is a 63 y.o. female who presents for Pre-op Exam. Patient comes for preoperative evaluation prior to cataract surgery and she is asymptomatic. She denies any fevers, no chills, no chest pains, no shortness of breath. She has a past medical history of COPD that is well-controlled at the moment. She has CHF with preserved ejection fraction and negative nuclear stress test last year. She has shortness of breath after walking for about half a block as her baseline. She had multiple surgeries in the past (cholecystectomy C- section and appendectomy)and she did not have problems with bleeding or anesthesia. Review of Systems Constitutional: Negative for chills and fever. HENT: Negative for sore throat. Respiratory: Negative for cough, shortness of breath and wheezing. Cardiovascular: Negative for chest pain, palpitations and leg swelling. Gastrointestinal: Negative for abdominal pain. Visit Vitals BP (!) 141/85 Pulse 79 Temp 98 ??F (36.7 ??C) (Temporal) Resp 14 Ht 5' 2 (1.575 m) Wt 191 lb (86.6 kg) SpO2 97% BMI 34.93 kg/m?? OB Status Postmenopausal Smoking Status Former BSA 1.95 m?? Objective Physical Exam Constitutional: Appearance: Normal appearance. Cardiovascular: Rate and Rhythm: Normal rate and regular rhythm. Heart sounds: No murmur heard. No gallop. Pulmonary: Effort: Pulmonary effort is normal. No respiratory distress. Breath sounds: Normal breath sounds. No wheezing. Musculoskeletal: Comments: Trace to 1+ lower extremity edema. Varicose veins. Skin discoloration of venous insufficiency. Neurological: Mental Status: She is alert. Assessment/Plan Diagnoses and all orders for this visit: Pre-op evaluation Comments: Patient is scheduled for low risk procedure. She can proceed with her cataract surgery with low risk of cardiovascular complications. She is recommended to use albuterol the morning of the surgery. documented in this encounter Plan of Treatment [...] as of this encounter Visit Diagnoses Diagnosis Pre-op evaluation- Primary documented in this encounter Additional Health Concerns Assessment Noted Time PHQ-9 Depression Total Score: 2 11/15/19 24 11:12 AM EDT documented as of this encounter Care Teams Heavy Duty Truck Mechanic Relationship Specialty Start Date End Date Shannon Ordaz MD [address] [place] [address] PCP - General Family Medicine 06/11/19 Benjie Pineda FNP [address] [place] [address] Nurse Practitioner Family Medicine 05/23/23 documented as of this encounter
--- OUTSIDE RECORDS SUMMARY | 2024-08-07 14:08 | XMS_ITS | Encounter Summary ---
Author Organization [employer] Address [address] [facility] 7t [place] [address] Care Team Providers Care Kinder Teacher Name Role Phone Shannon Ordaz MD Primary Care Provider + Benjie Pineda Unavailable Unavailable Reason for Visit * Reason Comments Med Refill Encounter Details Date Type Department Care Team (Late st Contact Info) Description 06/13/2024 Refill [facility] MEDICINE 230 [place], [place] [phone] Shannon Ordaz MD 230 [place] [address] Primary hypertension Social History Tobacco Use Types Packs/Day Years [...] Blood Pressure 141/85(2024 9:27 AM EST) No Evangelistas-Gambl e, Yanet, PharmD Record your blood pressure once per day Blood Pressure No Evangelistas-Gambl e, Yanet, PharmD Take your medication every day Lifestyle No Piers-Gambl e, Yanet, PharmD documented as of this encounter Visit Diagnoses Diagnosis Primary hypertension Unspecified essential hypertension documented in this encounter Additional Health Concerns Assessment Noted Time PHQ-9 Depression Total Score: 2 11/15/19 24 11:12 AM EDT documented as of this encounter Care Teams Kinder Teacher Relationship Specialty Start Date End Date Shannon Ordaz MD [address] [place] [address] PCP - General Family Medicine 06/11/19 Benjie Pineda FNP [address] [place] [address] Nurse Practitioner Family Medicine 05/23/23 documented as of this encounter
--- OUTSIDE RECORDS SUMMARY | 2024-08-07 14:08 | XMS_ITS | Encounter Summary ---
Author Organization [email or web address] Address [address] [facility] 7t [place] [address] Care Team Providers Care Consumer Educator Name Role Phone Shannon Ordaz MD Primary Care Provider + Benjie Pineda Unavailable Unavailable Reason for Visit * Reason Onset Date Comments Pre-op Exam 06/21/2024 Encounter Details Date Type Department Care Team ([facility] st Contact Info) Description 06/21/2024 Telephone [facility] MEDICINE 230 [place], [place] [phone] Shannon Ordaz MD [address] [place], [place] [phone] Pre-op Exam Social History Tobacco Use Types Packs/Day Years [...] encounter Miscellaneous Notes * Telephone Encounter - Melita Stevenson - 06/21/2024 9:57 AM EST Torch Brazer spoke with Melanie at [facility] and agreed to inform pt she is scheduled for pre op on 07/25/24 at 9AM with . Appointment reminder letter mailed Date of Surgery: 08/07/2024 and 08/23/2024 (right eye) Surgical procedure being done: Cataract Surgery Type of anesthesia: MAC Lab needed: No EKG: No Surgeon's name: Tino Falk Facility name: [facility] Surgeon's office number: [phone] Ext [phone] Surgeon's office fax number: [phone] Contact name (person you spoke with): Melanie Last office note from surgeon requested: No * Telephone Encounter - Watson Abdi - 06/21/2024 9:08 AM EST Date of Surgery: 08/07/2024 and 08/23/2024 (right eye) Surgical procedure being done: Cataract Surgery Type of anesthesia: MAC Lab needed: No EKG: No Surgeon's name: Tino Falk Facility name: [facility] Surgeon's office number: [phone] Surgeon's office fax number: [phone] Contact name (person you spoke with): Melanie Last office note from surgeon requested: No Send Message to Melita Stevenson and Marc Apodaca documented in this encounter Plan of Treatment [...] documented as of this encounter Care Teams Consumer Educator Relationship Specialty Start Date End Date Shannon Ordaz MD [address] [place] [address] PCP - General Family Medicine 06/11/19 Benjie Pineda FNP [address] [place] [address] Nurse Practitioner Family Medicine 05/23/23 documented as of this encounter
--- OUTSIDE RECORDS SUMMARY | 2024-08-07 14:08 | XMS_ITS | Encounter Summary ---
Author Organization [email or web address] Address [address] [facility] 7t [place] [address] Care Team Providers Care Repairer Engine Production Name Role Phone Shannon Ordaz MD Primary Care Provider + Benjie Pineda Unavailable Unavailable Reason for Visit * Reason Comments Med Refill Encounter Details Date Type Department Care Team (Late st Contact Info) Description 08/07/2024 Refill [facility] MEDICINE 230 [place], [place] [phone] Shannon Ordaz MD [address] [place], [place] [phone] TIA (transient ischemic attack) Social History Tobacco Use Types Packs/Day Years [...] 141/85(2024 9:27 AM EST) No Piers-Gambl e, Aynet, PharmD Record your blood pressure once per day Blood Pressure No Piers-Gambl e, Yanet, PharmD Take your medication every day Lifestyle No Piers-Gambl e, Yanet, PharmD documented as of this encounter Visit Diagnoses Diagnosis TIA (transient ischemic attack) Unspecified transient cerebral ischemia documented in this encounter Additional Health Concerns Assessment Noted Time PHQ-9 Depression Total Score: 2 11/15/19 24 11:12 AM EDT documented as of this encounter Care Teams Repairer Engine Production Relationship Specialty Start Date End Date Shannon Ordaz MD [address] [place] [address] PCP - General Family Medicine 06/11/19 Benjie Pineda FNP [address] [place] [address] Nurse Practitioner Family Medicine 05/23/23 documented as of this encounter
--- OUTSIDE RECORDS SUMMARY | 2024-08-07 14:08 | XMS_ITS | Encounter Summary ---
Author Organization [employer] Address [address] [place] [address] 7 [place] [address] Care Team Providers Care Mechanical Process Engineer Name Role Phone Shannon Ordaz MD Primary Care Provider + Benjie Pineda Unavailable Unavailable Reason for Visit * Reason Comments Med Refill Encounter Details Date Type Department Care Team (Late st Contact Info) Description 06/29/2022 Refill [facility] MED[facility]INE [address] [place] [address] Benjie Pineda FNP Social History Tobacco Use Types Packs/Day Years [...] suspected to have Coronavirus/COVID-19? No / Unsure 06/07/2022 10:36 AM EST documented as of this encounter Plan of Treatment Not on file documented as of this encounter Visit Diagnoses Not on filedocumented in this encounter Care Teams Mechanical Process Engineer Relationship Specialty Start Date End Date Shannon Ordaz MD [address] [place] [address] PCP - General Family Medicine 06/11/19 Benjie Pineda FNP [address] [place] [address] Nurse Practitioner Family Medicine 05/23/23 [facility] 04/25/24 05/03/24 documented as of this encounter
--- OUTSIDE RECORDS SUMMARY | 2024-08-07 14:08 | XMS_ITS | Encounter Summary ---
Author Organization [employer] Address [address] [facility] 7t [place] [address] Care Team Providers Care Clinical Technician Name Role Phone Shannon Ordaz MD Primary Care Provider + Benjie Pineda Unavailable Unavailable Encounter Details Date Type Department Care Team (Late st Contact Info) Description 04/24/2024 Orders Only [facility] 230 [place], [place] [phone] ProviderYarelis MD Social History Tobacco Use Types [...] Yanet, PharmD documented as of this encounter Procedures Procedure Name Priority Date/Time Associated Diagnosis Comments CT HEAD WO CONTRAST Routine 04/24/2024 11:37 AM EDT documented in this encounter Results * CT Head w/o Contrast (04/24/2024 11:37 AM EDT) Anatomical Region Laterality Modality Head, Neck Computed Tomogra phy us Historical Provider MD [place] CT PROCEDURES Final R esult documented in this encounter Visit Diagnoses Not on filedocumented in this encounter Additional Health Concerns Assessment Noted Time PHQ-9 Depression Total Score: 2 11/15/19 24 11:12 AM EDT documented as of this encounter Care Teams Clinical Technician Relationship Specialty Start Date End Date Shannon Ordaz MD [address] [place] [address] PCP - General Family Medicine 06/11/19 Benjie Pineda FNP [address] [place] [address] Nurse Practitioner Family Medicine 05/23/23 [facility] 04/25/24 05/03/24 documented as of this encounter
--- OUTSIDE RECORDS SUMMARY | 2024-08-07 14:08 | XMS_ITS | Clinical Summary ---
Author Organization [employer] Address [address] [place] [address] [address] [place] [address] Care Team Providers Care Deck Hand Name Role Phone Shannon Ordaz MD Primary Care Provider + Benjie Pineda Unavailable Unavailable Allergies Active Allergy Reactions Criticality Noted Date Comments Vortioxetine 08/27/2020 Other reaction(s): Itching Medications * This document contains information received from the source organization and may not represent a complete record from that organization. betamethasone valerate (Valisone) 0.1 % ointmentIndicatio ns:Lichen planus Apply topically if needed in the morning and at bedtime (dryness). 45 g 2 023 Active Anoro Ellipta 62.5-25 MCG/ACT aerosol powder INHALE 1 PUFF EVERY DAY AT THE SAME TIME 023 Active famotidine (Pepcid) 40 MG tablet Take 40 mg by mouth at bedtime. 023 Active bumetanide (Bumex) 1 MG tablet Take 1 mg by mouth in the morning. 024 Active acyclovir (Zovirax) 5 % ointment Apply topically 4 times daily. Space applications every 3 hours. 15 g 024 Active Cyanocobalamin ER (HM Vitamin B-12 TR) 2000 MCG tablet controlled-releas e Take 2,000 mcg by mouth Once per day. 1 tab daily 90 tablet 3 024 2024 Active liver oil-zinc oxide (Desitin) 40 % ointment Apply topically if needed for irritation. 56 g 024 Active buPROPion XL (Wellbutrin XL) 300 MG 24 hr tabletIndications :Major depressive disorder, recurrent episode with mood-congruent psychotic features (CMS/HCC) Take 1 tablet (300 mg) by mouth in the morning. 90 tablet 3 024 Active LORazepam (Ativan) 0.5 MG tablet Take 1 tablet (0.5 mg) by mouth every 12 (twelve) hours if needed for anxiety. 60 tablet 5 024 Active mirtazapine (Remeron) 30 MG tabletIndications :Major depressive disorder, recurrent episode with mood-congruent psychotic features (CMS/HCC) Take 2 tablets (60 mg) by mouth at bedtime. 180 tablet 3 024 Active risperiDONE (RisperDAL) 3 MG tabletIndications :Major depressive disorder, recurrent episode with mood-congruent psychotic features (CMS/HCC) Take 1 tablet (3 mg) by mouth at bedtime. 90 tablet 3 024 Active venlafaxine XR (Effexor XR) 150 MG 24 hr capsuleIndication s:Major depressive disorder, recurrent episode with mood-congruent psychotic features (CMS/HCC) Take 1 capsule (150 mg) by mouth Once per day. 90 capsule 3 024 Active polyvinyl alcohol (Liquifilm Tears) 1.4 % ophthalmic solution INSTILL 1 DROP INTO THE AFFECTED EYE(S) FIVE TIMES DAILY 024 Active traMADol (Ultram) 50 MG tablet TOME PRESTON TABLETA POR V A ORAL CADA SEIS A OCHO HORAS CUANDO SEA NECESARIO PARA EL DOLOR 024 Active albuterol 1.25 MG/3ML nebulizer solutionIndicatio ns:Moderate persistent asthma with acute exacerbation Take 3 mL (1.25 mg) by nebulization every 6 (six) hours if needed for wheezing. 75 mL 3 024 2024 Active albuterol 108 (90 Base) MCG/ACT inhaler Inhale 2 puffs every 4 (four) hours if needed for wheezing or shortness of breath. 18 g 1 024 Active lisinopril 10 MG tabletIndications :Hypertensive emergency TAKE 1 TABLET BY MOUTH EVERY MORNING 90 tablet 1 024 Active docusate sodium (Colace) 100 MG capsuleIndication s:Slow transit constipation TAKE 1 CAPSULE BY MOUTH TWICE DAILY IN THE MORNING AND AT BEDTIME NEEDED FOR CONSTIPATION 180 capsule 1 024 Active carvedilol (Coreg) 3.125 MG tablet Take 1 tablet by mouth with breakfast and with evening meal. Active Blood Pressure Monitoring (Blood Pressure Cuff) misc Use daily as prescribed 1 each Active lidocaine (Lidoderm) 5 % patchIndications: Pain in rib Apply 1 patch topically Once per day. Remove & discard patch within 12 hours or as directed by MD. 30 patch 1 Active pantoprazole (ProtoNix) 40 MG EC tabletIndications :Cárdenas's esophagus with dysplasia TAKE 1 TABLET BY MOUTH TWICE DAILY IN THE MORNING AND IN THE EVENING 180 tablet 3 Active atorvastatin (Lipitor) 10 MG tabletIndications :Mixed hyperlipidemia TAKE 1 TABLET BY MOUTH AT BEDTIME 90 tablet Active gabapentin (Neurontin) 600 MG tabletIndications :Anxiety and depression TAKE 1 TABLET BY MOUTH TWICE DAILY IN THE MORNING AND AT BEDTIME 60 tablet Active pantoprazole (ProtoNix) 40 MG EC tabletIndications :Cárdenas's esophagus with dysplasia TAKE 1 TABLET BY MOUTH TWICE DAILY IN THE MORNING AND IN THE EVENING 180 tablet 3 024 2024 Discontinued atorvastatin (Lipitor) 10 MG tabletIndications :Mixed hyperlipidemia TAKE 1 TABLET BY MOUTH AT BEDTIME 90 tablet 024 2024 Discontinued gabapentin (Neurontin) 600 MG tabletIndications :Anxiety and depression TAKE 1 TABLET BY MOUTH TWICE DAILY IN THE MORNING AND AT BEDTIME 60 tablet 024 2024 Discontinued Active Problems Patient Care Coordination No te Formatting of this note migh t be different from the original. C3/CM Shiloh Leonardo RN Problem Noted Date Diagnosed Date Class 1 obesity due to exces s calories with serious comorbidity and body mass index (BMI) of 33.0 to 33.9 in adult 05/23/2024 Assessment & Plan (05/23/2024 9:34 AM EST): BMI is improved, likely related to recent acute conditions, now resolved Advised re improve hydration. Discussed re weight reduction options including exercise, life style modifications, diet. Recommended to decrease soda and sugary beverage consumption, increase protein intake with meals (at least 1 portion of protein with each meal) to assist with satiety, increase dietary fiber Recommended at least 150 min/week of moderate intensity exercise. Stress incontinence of urine 04/05/2024 Assessment & Plan (04/05/2024 3:53 PM EDT): Wears pull ups, will send new rx. Reminded re Kegel's exercises. Dizziness 02/13/2024 Assessment & Plan (02/14/2024 4:16 PM EDT): Unclear if related to hypotension, patient will check BP at home and fu with me in 2-3w. Order labs to ro kenrick imbalance Advised to use cane for ambulation, use shower chair and bedside commode to prevent accidents at home. She has a [employer] to help with ADLs, I told patient to avoid any activity that can put her at risk , that otherwise is to be assisted by [employer] . Anemia 02/13/2024 History of colon polyps 01/10/2024 Internal hemorrhoids 01/10/2024 Assessment & Plan (04/03/2024 1:26 PM EDT): - bleeding is resolved - advised to avoid constipation, use preparation age cream PRN - last colonoscopy done 2023 Lumbar radiculopathy 01/10/2024 Lumbosacral spondylosis 01/10/2024 Nocturnal hypoxemia 01/10/2024 ESME (obstructive sleep apnea) 01/10/2024 Assessment & Plan (04/03/2024 1:00 PM EDT): - pt needs to use CPAP every night to decrease morbidity and mortality Pulmonary nodules 01/10/2024 Sacroiliac joint pain 01/10/2024 Sickle cell trait 01/10/2024 Assessment & Plan (05/23/2024 9:33 AM EST): Patient is asymptomatic, doesn't have anemia. No need to fu on this. Depression with anxiety 01/10/2024 Abdominal pain 01/10/2024 Bilateral hip pain 01/10/2024 Chest pain of unknown etiology 01/10/2024 Acid reflux 01/10/2024 Hyperlipidemia 01/10/2024 Dyspnea on exertion 01/10/2024 Dry eye 11/11/2023 Assessment & Plan (11/11/2023 1:23 PM EDT): Use natural tears Meralgia paresthetica of right side 10/17/2023 Assessment & Plan (10/17/2023 2:33 PM EDT): Reassurance, I told her to treat lumbar spine disease. Restart b12 tablets , continue gabapentin 600 mg Use lidocaine gel prn Lumbar disc disease 10/17/2023 Assessment & Plan (11/11/2023 1:23 PM EDT): She has significant DJD of the lumbar spine, she will fu w/ pain clinic for epidural injection Pt will stop aspirin 1 wk prior to injection and will restart it at least 3-4 days after that Continue tylenol PRN, walk w/ a cane to prevent falls I advised to move to a first floor apartment or one w/ elevator access and pt has DME at home to prevent falls Assessment & Plan (10/17/2023 2:33 PM EDT): Has POS MRI on 12/2022, last seen at Pain clinic >3mo ago due to TIA. Its been >6 mo since episode and she has been stable. I tld her to call [place] [facility] [place] to [place] lumbar epidural injections before spine disease gets worse. Laceration of right ear lobe 10/17/2023 Assessment & Plan (10/17/2023 2:35 PM EDT): Apparently due to rubbing of nasal canula hose at night. Keep lesion clean and dry, use zinc oxide daily to affected area , put gauze on upper part of ear lobe to protect skin from further injury. Colitis 10/07/2023 Assessment & Plan (10/10/2023 5:53 PM EDT): It seems to be resolved, completed probiotics. Acute pyelonephritis 10/07/2023 Assessment & Plan (05/23/2024 10:03 AM EST): Resolved, sp abs on 05/01. Re consult prn Assessment & Plan (10/10/2023 5:54 PM EDT): Klebsiella UTI, treated with Ceftriaxone Recurrent stomatitis 10/07/2023 Assessment & Plan (10/10/2023 6:06 PM EDT): Use acyclovir cream prn within the first 2d onset of sxs, can use OTC hydrocortisone cream to affected area. Tubular adenoma of colon 08/01/2023 Assessment & Plan (01/06/2024 11:29 AM EDT): Sp Colonoscopy 06/2023, needs fu in 5y FU with GI. Stage 3a chronic kidney disease 08/01/2023 Assessment & Plan (05/23/2024 10:04 AM EST): - GFR getting back to baseline, most likely related to dehydration, improving now. - Had lengthy discussion with pt and family about avoiding dehydration, uncontrolled HTN, developing of DM -Continue lisinopril same dose, fu in 3mo, will do BMP Assessment & Plan (04/03/2024 1:27 PM EDT): - GFR getting back to baseline, most likely related to dehydration - had lengthy discussion with pt and family about avoiding dehydration, uncontrolled HTN, developing of DM, will do BMP prior to next appointment - will restart Lisinopril and will f/u BMP closely Assessment & Plan (01/06/2024 11:30 AM EDT): Advised to avoid NSAIDs use for long time, only prn. Monitor BP Repeat BMP in 3m Dependence on nocturnal oxygen therapy Assessment & Plan (06/17/2023 10:46 AM EST): Pt has COPD and ?ILD Needs O2 supplementation at night only FU with pulmo Congestive heart failure 06/17/2023 Assessment & Plan (04/05/2024 3:56 PM EDT): - history of CHF due to uncontrolled HTN only and after pericarditis >3y ago, has preserved EF (last echo on 04/19/23 at [facility] showed EF 60% with no WM abn) - Will refer to new cardiology per daughter's impatient request - Advised re control of HTN, continue coreg, lisinopril, restart diuretics(bumex, will hold hydrochlorothiazide) once GFR remains above 45, she will check BMP in 2-3w. Assessment & Plan (11/11/2023 1:21 PM EDT): Need to fu cardiology after recent echo Continue lisinopril 10mg + verapamil + HCTZ. Advised about low sodium diet, tight control of HTN Assessment & Plan (06/17/2023 11:10 AM EST): Last ECHO on 2021 showed recent EF, unclear if she had mild ischemia on 06/14 Check BMP FU cardiology 06/21 at 11:30 am, information was given to follow [facility] cardiology Check BMP, will call her to adjust bumex (pt cont to be on once /day only) Diarrhea 06/02/2023 Assessment & Plan (04/26/2024 1:27 PM EDT): Unclear if related to IBS vs. Celiacs Disease vs. Other infection. Advised regarding increased hydration, taking Imodium prn only, hold for palpitations. Hydrochlorothiazide and XXX are being DC on med box. Order labs. Refer to GI. Assessment & Plan (06/02/2023 11:40 AM EST): R/o IVS, Pt previously complained of constipation Keep a Sx/ meal diary Use Pepto Bismol PRN FU GI for coloscopy next month Benign essential HTN 03/02/2023 Assessment & Plan (05/23/2024 10:06 AM EST): Controlled on lisinopril + Bumex only, no change in meds. I gave them infor re BP and they will check BP three times per week, call back if BP is outside parameters (90-140/60-85) at least 2x, or patient is symptomatic. Counseled re low salt diet/increase moderate physical activity. Check home BP BIW and prn CP/THOMAS/COLLAZO Non smoking patient. FU in 3-4m Assessment & Plan (04/27/2024 3:28 PM EDT): Has increased HTN due to diarrhea. DC hydrochlorothiazide and Verapamil, Continue Lisinopril 10 mg and Bumex 1 mg (on the medication bottle, she will restart as her BP increases) Follow up with me in 3 weeks. Assessment & Plan (04/03/2024 1:22 PM EDT): - uncontrolled, will restart Lisinopril as last GFR was up to 58 - continue off hctz and verapamil - f/u with me in 3-4 weeks and will order BMP Assessment & Plan (10/10/2023 5:52 PM EDT): BP is controlled, she's been on all her meds including diuretics since discharge. Will check BMP and Mg today, will adjust meds prn lab results. I called pharmacy (spoke with [facility]) to leave meds in medboxes as usual, we'll call them with med changes. Assessment & Plan (06/02/2023 11:38 AM EST): Controlled. Compliant w/meds. BP at goal Thyroid recently increase, order Bmp and will check w/ pharmacy regarding medication changes Counseled re low salt diet/increase moderate physical activity. Check home BP BIW and prn CP/THOMAS/COLLAZO Non smoking patient. Vertigo 02/04/2023 Assessment & Plan (03/02/2023 1:18 PM EDT): DC meclizine and start Dramamine. Appt at [facility]est[facility] therapy [facility] on 03/08. Info handed to patient FU w me in 3m. Will fu with Neurology if she has residual sxs. Assessment & Plan (02/04/2023 1:27 PM EDT): most likely central vertigo MRI was done last week, results are pending. I called neurology office Dr. Jimenez office and they schedule vestibular therapy on 03/08. Patient wasn't aware , they will mail information with that appt. Refer to Neurology to fu after MRI Nasal congestion 02/04/2023 Assessment & Plan (02/04/2023 12:10 PM EDT): Today's covid test is negative Pt told to use nasal saline and flonase until symptoms have resolved. COPD (chronic obstructive pulmonary disease) Assessment & Plan (04/05/2024 3:57 PM EDT): - pt to f/u with pulmonology due to persistent COLLAZO - continue Anoro and Albuterol PRN + O2 overnight - f/u wit Dr. Disla - will f/u next month and update covid and influenza IZ Assessment & Plan (06/17/2023 10:44 AM EST): Complete prednisone + levofloxacin Continue O2 supplementation overnight Continue anoro + albuterol prn FU with pulmonology next month Assessment & Plan (01/13/2023 4:09 PM EDT): Resolved, sxs are improving Continue Anoro and Proair Needs home O2 overnight and prn, should have concentrator to use prn when she leaves the home, she will ask pulmonary at upcoming appt and I will fu with her in 2m FU with pulmonology Closed fracture of fifth lumbar vertebra 023 Assessment & Plan (11/11/2023 1:22 PM EDT): She has compression fracture to due stenosis Will order bone density test Continue vit d supplementation Take tylenol PRN for pain + ice hot patch + lidocaine gel PRN Assessment & Plan (10/10/2023 5:59 PM EDT): Old fracture, not particularly painful Will fu in 4-6w and decide on further rx prn. Replete Vit D x 6m and recheck levels prior to doing dexa scan (levels on 05/2023 were 9) Assessment & Plan (11/15/2022 11:51 AM EDT): more than 10 years ago pt seems to have chronic DJD changes that may be worsening the pain pain clinic will call for an appointment referral done last month continue ambulation with a cane, lidocaine patch, and continue PT Lichen planus 11/15/2022 Assessment & Plan (11/15/2022 11:52 AM EDT): on lower extremities use betamethasone cream and FU with me in 3 months. Vascular insufficiency 11/11/2022 Chronic bilateral low back pain without sciatica 09/27/2022 Assessment & Plan (06/17/2023 11:11 AM EST): Pt has non DJD of the spine ans was scheduled for a steroid injection which needs to be done with pt taking aspirin, lasix have been DC Due to recent acute event as above I will call pain management to hold on procedures and will discuss w/ pt at next visit Assessment & Plan (09/27/2022 12:01 PM EDT): She has underlying OA of the lumbar spine exacerbated by lumbar vertebral compression fracture 2020 that hasn't healed continue PT for now Use meloxicam daily for 3-4 weeks + Tylenol PRN Treat neuropathy Order MRI and refer to Pain clinic Pt agreeable to pain injections or other injections to heal vertebral fractrure if needed avoid negotiating stairs FU in 4-6 weeks Major depressive disorder, r ecurrent episode with mood-congruent psychotic features 05/31/2022 Assessment & Plan (11/15/2023 12:00 PM EDT): She is doing very well. Anxiety and depression controlled, sleeping well. Will continue Venlafaxine 150 mg daily, Bupropion XL 300 mg daily, Risperidone 3 mg at bedtime, Mirtazapine 30 mg 2 at bedtime. May also take Lorazepam 0.5 mg prn twice daily (try 1/2 tab during the day if a full tab is too sedating). She is aware of precautions. No contraindications to benzodiazepine, I.e., no hx FISH, no opioid pain medications or other markedly sedating medications. Watch for symptoms of serotonin syndrome. She also has Gabapentin 600 mg BID per PCP. F/U with therapist as usual. Since this provider will be retiring, patient is now referred back to her PCP for further medication management. She agrees with the plan. Assessment & Plan (09/29/2023 3:41 PM EDT): Had been stable, doing very well for more than 1 year, however recent hospitalizations for COVID and acute renal failure have markedly worsened her anxiety. Reviewed options for treating anxiety. Adding Buspirone is one option, but rather than adding to her polypharmacy, will instead increase Venlafaxine now to 150 mg daily. May also take Lorazepam 0.5 mg prn twice daily (try 1/2 tab during the day if a full tab is too sedating). She is aware of precautions. No contraindications to benzodiazepine, I.e., no hx FISH, no opioid pain medications or other markedly sedating medications. Continue Bupropion XL 300 mg daily, Risperidone 3 mg at bedtime, Mirtazapine 30 mg 2 at bedtime. Will continue to watch for symptoms of serotonin syndrome. She also has Gabapentin 600 mg BID per PCP. Referring again for counseling. On 05/31/2023 provider informed the pt that I would be retiring, and we would make every effort to ensure smooth transition of care. F/U with me in 6 weeks. She agrees with the plan. Assessment & Plan (08/02/2023 10:31 AM EST): Continues during very well. Anxiety (including leg shaking) has responded well to Lorazepam 0.5 mg prn, which she has been taking twice daily. She is aware of precautions. No contraindications to benzodiazepine, I.e., no hx FISH, no opioid pain medications or other markedly sedating medications. Continue Bupropion XL 300 mg daily, Venlafaxine XR 75 mg daily, Risperidone 3 mg at bedtime, Mirtazapine 30 mg 2 at bedtime. Will continue to watch for symptoms of serotonin syndrome. She also has Gabapentin 600 mg BID per PCP. She is still awaiting counseling intake. On 05/31/2023 provider informed the pt that I would be retiring, and we would make every effort to ensure smooth transition of care. F/U with me in 2 months. She agrees with the plan. Assessment & Plan (05/31/2023 11:36 AM EST): Continues during very well. Anxiety (including leg shaking) has responded well to Lorazepam 0.5 mg prn, which she has been taking twice daily. She is aware of precautions. No contraindications to benzodiazepine, I.e., no hx FISH, no opioid pain medications or other markedly sedating medications. Continue Bupropion XL 300 mg daily, Venlafaxine XR 75 mg daily, Risperidone 3 mg at bedtime, Mirtazapine 30 mg 2 at bedtime. Will continue to watch for symptoms of serotonin syndrome. She also has Gabapentin 600 mg BID per PCP. She is still awaiting counseling intake. Today 05/31/2023 provider informed the pt that I would be retiring within the next 1/2 year of so, and we would make every effort to ensure smooth transition of care. F/U with me in 2 months. She agrees with the plan. Assessment & Plan (03/31/2023 11:13 AM EDT): Continues during very well. Anxiety (including leg shaking) has responded well to Lorazepam 0.5 mg prn, which she has been taking twice daily. She is aware of precautions. No contraindications to benzodiazepine, I.e., no hx FISH, no opioid pain medications or other markedly sedating medications. Continue Bupropion XL 300 mg daily, Venlafaxine XR 75 mg daily, Risperidone 3 mg at bedtime, Mirtazapine 30 mg 2 at bedtime. Will continue to watch for symptoms of serotonin syndrome. She also has Gabapentin 600 mg BID per PCP. She is awaiting counseling intake. F/U with me in 2 months. She agrees with the plan. Assessment & Plan (02/01/2023 12:47 PM EDT): Still doing very well despite serious medical problems and recent hospitalizations. Anxiety (including leg shaking) has responded well to Lorazepam 0.5 mg prn, which she has been taking twice daily. She is aware of precautions. No contraindications to benzodiazepine, I.e., no hx FISH, no opioid pain medications or other markedly sedating medications. Continue Bupropion XL 300 mg daily, Venlafaxine XR 75 mg daily, Risperidone 3 mg at bedtime, Mirtazapine 30 mg 2 at bedtime. Will continue to watch for symptoms of serotonin syndrome. She also has Gabapentin 600 mg BID per PCP. She is awaiting counseling intake. F/U with me in 2 months. She agrees with the plan. Assessment & Plan (11/25/2022 10:00 AM EDT): Doing significantly better. Anxiety (including leg shaking) has responded well to Lorazepam 0.5 mg prn, which she has been taking twice daily. She is aware of precautions. No contraindications to benzodiazepine, I.e., no hx FISH, no opioid pain medications or other markedly sedating medications. Continue Bupropion XL 300 mg daily, Venlafaxine XR 75 mg daily, Risperidone 3 mg at bedtime, Mirtazapine 30 mg 2 at bedtime. She also has Gabapentin 600 mg BID per PCP. She is awaiting counseling intake. F/U with me in 2 months. She agrees with the plan. Assessment & Plan (10/18/2022 12:04 PM EDT): Despite worse PHQ9 score today, she is actually doing better. Happier since she has moved to a new apartment. Anxiety (including leg shaking) has responded well to Lorazepam 0.5 mg prn. I have reassured her that the medication is safe when taken as directed, so she should utilize it when needed. No contraindications to benzodiazepine, I.e., no hx FISH, no opioid pain medications or other markedly sedating medications. Continue other medications. Will refer for counseling. F/U with me in 4-6 weeks. She agrees with the plan. Assessment & Plan (09/16/2022 10:00 AM EDT): Still not doing well. Severe anxiety with shaking. Persistent auditory hallucinations. Taking all medications as directed. No contraindications to benzodiazepine, I.e., no hx FISH, no opioid pain medications or other markedly sedating medications. Will cautiously prescribe Lorazepam 0.5 mg to take prn, no more often than every 8 hours, maximum #50 per month. Reviewed that this medication was a controlled substance, if lost or stolen would not be replaced. Potentially habit-forming, must not take other than as prescribed, do not share with others, keep out of reach of others. Continue other medications. She will try again to call for counseling. F/U with me in 1 month. She agrees with the plan. Assessment & Plan (08/19/2022 12:24 PM EST): Still not doing well, attributed to stress with her neighbor. Severe anxiety with shaking. Persistent auditory hallucinations. Will again request letter supporting need to move. No med changes at this time. F/U with me in 1 month. She agrees with the plan. Assessment & Plan (07/13/2022 9:59 AM EST): Again not doing well, attributed to stress with her neighbor. She has been proactive in asking to be moved to a new apartment. Meanwhile, her mood has worsened, with increased anxiety and hallucinations. We will increase to Risperidone 3 mg at bedtime. Possibly this can be decreased again when she is in a less stressful environment. Reviewed side effects including sedation and risk of abnormal movements. Also reminded that Crisis is available 17/01 if she is suffering emotional Crisis We have attempted to refer her for counseling multiple times, unsuccessfully. She says she is willing to make some phone calls herself to try to engage with therapy, and we will send her the list of area agencies. F/U with me in 1 month. She agrees with the plan. Assessment & Plan (05/31/2022 1:04 PM EST): Much improved. Auditory hallucinations resolved, visual much improved. Will increase again to Risperidone 2 mg at bedtime. Discontinue Seroquel. Continue Venlafaxine 75 mg daily, Remeron 30 mg 2 tabs at bedtime, Wellbutrin XL 300 mg in am. 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 05/24/2022 Cárdenas's esophagus with dysplasia 05/24/2022 Assessment & Plan (01/06/2024 11:28 AM EDT): Sp EGD 06/2023 FU with GI Continue Omeprazole Bilateral leg edema 05/24/2022 Chest pain on breathing 05/24/2022 Chronic cough 05/24/2022 Chronic gastritis 05/24/2022 Assessment & Plan (01/06/2024 11:29 AM EDT): Sp EGD Advised to use TUMS prn, may need sucralfate if not improved FU with GI Chronic sphenoidal sinusitis 05/24/2022 Closed fracture of metatarsal bone of left foot 05/24/2022 Disturbance in sleep behavior 05/24/2022 Edema of lower extremity 05/24/2022 Headache disorder 05/24/2022 Hematochezia 05/24/2022 Hiatal hernia 05/24/2022 Hypokalemia 05/24/2022 Paroxysmal nocturnal dyspnea 05/24/2022 Migraine with aura 05/24/2022 Syncope 05/24/2022 Snoring 05/24/2022 Chronic constipation 05/24/2022 Sinusitis 05/24/2022 Peripheral vertigo 05/24/2022 Palpitations 05/24/2022 Wakes up during night 05/24/2022 TIA (transient ischemic attack) 05/24/2022 Assessment & Plan (03/02/2023 1:15 PM EDT): Seen by neurology. Will optimize RF control Patient has residual vertigo, will be seen at vestibular therapy Impaired fasting glucose 07/11/2018 Assessment & Plan (04/03/2024 1:29 PM EDT): Usually exacerbated status post epidural injection, last A1C at goal I have discussed with patient regarding increasing physical activity and decrease calorie intake I'll check FBS with next set of labs. To check RBS at next visit. FU with me next visit Moderate persistent asthma 07/11/2018 Assessment & Plan (11/15/2022 11:53 AM EDT): probably well controlled still with montly asthma exacerbations continue advair 500 BID and fu with technician anatomic pathology use ProAir once per day, may need to use spiriva Counseled regarding weight reduction. fU PFTS. Anxiety 03/07/2018 History of appendectomy 03/07/2018 History of cholecystectomy 03/07/2018 Hypercholesterolemia 03/07/2018 Assessment & Plan (02/14/2024 4:14 PM EDT): Obtain labs prior to next appt. Continue low dose atorvastatin for now, goal LDL is 70 Osteoporosis 03/07/2018 Neuropathy involving both lower extremities 02/25 Assessment & Plan (03/02/2023 1:14 PM EDT): Labs so far are normal. Sxs seem to be related to lumbar radiculopathy FU pain clinic Patient has spinal stimulator Assessment & Plan (01/13/2023 4:07 PM EDT): On gabapentin. Order B12 levels and will advise on further rx. 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 Encouraged physical activity as tolerated. Assessment & Plan (06/02/2023 11:38 AM EST): Had DM related to steroid injection use. Order labs and FU on next visit MUSHTAQ (acute kidney injury) 02/04/2023 Assessment & Plan (10/10/2023 5:54 PM EDT): Creat improved prior to discharge, patient restarted diuretics at home right after discharge. Monitor BMP today and adjust meds as needed, will call patient and pharmacy to adjust medboxes if needed Assessment & Plan (02/04/2023 1:29 PM EDT): Pt still taking lasix, med box reviewed. Spoke with pharmacy to dc lasix and she will bring her med box downstairs to change the medications. Check BMP FU in 2-3 weeks for BP follow up. Acute cystitis with hematuria 01/13/2023 04/05/2024 Assessment & Plan (01/13/2023 4:10 PM EDT): Resolved. FU prn Severe obesity (BMI 35.0-39. 9) with comorbidity 11/11/2022 05/23/2024 Acute idiopathic pericarditis 05/24/2022 08/13/2023 Elevated blood-pressure read ing without diagnosis of hypertension 05/24/2022 08/13/2023 Assessment & Plan (03/02/2023 1:15 PM EDT): Patient has essential htn Hypertensive emergency 05/24/202208/13 Encounters Date Type Department Care Team Description 08/07/2024 Refill [facility] [address] [place] [address] Shannon Ordaz MD TIA (transient ischemic attack) 07/25/2024 9:00 AM EST Office Visit [facility] [address] [place] [address] Len Bynum MD Pre-op evaluation (Primary Dx) 07/11/2024 Refill [facility] [address] [place] [address] Shannon Ordaz MD Mixed hyperlipidemia; Anxiety and depression 07/08/2024 Refill [facility] [address] [place] [address] Shannon Ordaz MD Cárdenas's esophagus with dysplasia 06/21/2024 Telephone [facility] [address] [place] [address] Shannno Ordaz MD Pre-op Exam 06/18/2024 Refill [facility] [address] [place] [address] Shannon Ordaz MD Anxiety and depression 06/13/2024 Refill [facility] [address] [place] [address] Shannon Ordaz MD Primary hypertension 06/06/2024 Telephone [facility] [address], [place] [phone] Raina Hathaway, OD 05/23/2024 9:00 AM EST Office Visit [facility] [address] [place] [address] Shannon Ordaz MD Benign essential HTN (Primary Dx); Acute pyelonephritis; Class 1 obesity due to excess calories with serious comorbidity and body mass index (BMI) of 33.0 to 33.9 in adult; Stage 3a chronic kidney disease ([facility]/HCC); Sickle cell trait ([facility]); Dietary counseling; Exercise counseling 05/23/2024 Travel 05/22/2024 Telephone [facility] [address] [place] [address] Elsie Beal MA Chart prep 05/16/2024 Refill [facility] [address] [place] [address] Shannon Ordaz MD Anxiety and depression 05/11/2024 3:00 PM EST Office Visit [facility] [address] [place] [address] Raina Hathaway, OD Combined forms of age-related cataract of both eyes (Primary Dx); Epiretinal membrane, both eyes; Dry eyes 05/11/2024 Travel 05/08/2024 Telephone [facility] [address] [place] [address] Kierra Baker, ESTELLE Results from Last 3 Months Immunizations Name Administration Dates Next Due Influenza injectable quadriv alent IIV4 with preservative 05/17/2018 Influenza injectable quadriv alent preservative free 05/14/2022,09/24/2021,04/23/2021,03/20,04/04/2019 Influenza, IIV3, injectable 04/23/2021,0 03/20/2020,04/04/2019,05/17 Moderna Covid-19 Vaccine 12+ 11/25/2020,10/30/19 21 Pneumococcal Conjugate PCV 20 01/09/2024 Pneumococcal Polysaccharide PPSV23 06/03/2020, Tdap 05/08/2020 Zoster, Recombinant 01/13/2023,05/08/2020 Family History Medical History Relation Name Comments Sickle cell anemia Father Breast cancer Maternal Grandmother Breast cancer Mother Relation Name Status Comments Father Maternal Grandmother Mother Social History Tobacco Use Types Packs/Day Years [...] 10:34 AM EDT Sexual Orientation Straight 05/31/2022 9 :45 AM EST Last Filed Vital Signs Vital Sign Reading [...] Mass Index 34.93 07/25/2024 9:12 AM EST Plan of Treatment Health Maintenance Due Date Last Done Comments CT Colonography 1958 FIT DNA/Cologuard 1958 FIT 1958 FOBT 1958 Sigmoidoscopy 1958 Alcohol/Substance Use Screening 1970 Hepatitis C Screening 1976 Pap Smear 12/20/1979 RSV Patients and Patients Aged 60 years or older (1 - Risk 60-74 years 1-dose series) 2018 Cervical Cancer Screening 05/17/2023 HPV/Cotest 05/17/2023 05/17/2018 Mammogram 12/23/2023 12/22/2021, 10/21/2020 COVID-19 Vaccine ( season) 2024 11/25/2020, 10/29/2020 SDOH Screening 09/25/2024 09/26/2023 Depression Screening 11/14/2024 11/15/2023, 11/15/19 24 Tobacco Screening 07/25/2025 07/25/2024 Lipid Panel 06/02/2028 06/02/2023, 04/23/2020 Colonoscopy 07/19/2028 07/19/2023, 05/09/2018 Colorectal Cancer Screening 07/19/2028 DTaP/Tdap/Td Vaccines (2 - Td or Tdap) 05/08/2030 05/08/2020 Zoster Vaccines Completed 01/13/2023, 05/08/2020 Pneumococcal Vaccine: 50+ Years Completed 01/09/2024, 06/03/2020, 10/18/2018 Influenza Vaccine Completed [...] patient's age to complete this topic Meningococcal Vaccine Aged Out No michael rabia eligible based on patient's age to complete this topic RSV under 20 months Aged Out No longe r eligible based on patient's age to complete this topic Rotavirus Vaccines Aged Out No longer eligible based on patient's age to complete this topic Goals Goal Patient Goal Type Associated Problems Recent Progress Patient-Stated? Author Blood Pressure < 140/90 Blood Pressure 141/85(2024 9:27 AM EST) No Piers-Gambl e Yanet, PharmD Record your blood pressure once per day Blood Pressure No Piers-Gambl e, Yanet, PharmD Take your medication every day Lifestyle No Piers-Gambl e, Yanet, PharmD Procedures Procedure Name Priority Date/Time Associated Diagnosis Comments OCT, RETINA - OU - BOTH EYES Routine 05/11/2024 3:00 PM EST Epiretinal membrane, both eyes COLONOSCOPY Routine 07/19/2023 LIPID PANEL WITH REFLEX TO DIRECT LDL Routine 06/02/2023 11:15 AM EST Elevated blood-pressure reading without diagnosis of hypertension TIA (transient ischemic attack) MAMMOGRAM GENERIC Routine 12/22/2021 12: 08 PM EDT ZZZ HISTORICAL HPV MRNA E6/E7 Routine 05/17/2018 9:40 AM EST from Last 3 Months or Most Recently Relevant to Health Maintenance Results * OCT, Retina - OU - Both Eyes (05/11/2024 3:00 PM EST) Narrative Raina Hathaway, OD - 05/29/2024 1:54 PM EST Test not needed. Raina Hathaway OD OPHTH TOMOGRAPHY Final Result * (ABNORMAL) Colonoscopy (07/19/2023) Colonoscopy Abnormal(A ) Normal [facility] Comment:TA us Shannon Ordaz MD HEALTH MAINTENANCE Edite d Result - Final Performing Organization Address [facility] Co de Phone Number [facility] [address] [place] [address] [phone] * Lipid Panel with Reflex to Direct LDL (06/02/2023 11:15 AM EST) Triglycerides 80 <150 mg/dL [facility] Comment:Desirable Triglyceri de: less than 150 mg/dLBorderline High Triglyceride 150-199 mg/dLHigh Triglyceride: 200-499 mg/dLVery High Triglyceride: greater than or equal to 5OO mg/dL Cholesterol 149 <200 mg/dL [facility] Comment:Desirable Cholestero l: less than 200 mg/dLBorderline High Cholesterol: 200-239 mg/dLHigh Cholesterol: greater than 239 mg/dL LDL Cholesterol Calculated 76 <100 mg/dL [facility] Comment:Desirable LDL: less than 100 mg/dLNear Optimal/Above Optimal LDL: 110- 129 mg/dLBorderline High LDL: 130-159 mg/dLHigh LDL: 160-189 mg/dLVery High LDL: greater than or equal to 190 mg/dL HDL Cholesterol 57 >40 mg/dL [facility] Comment:Desirable HDL: great er than 40 mg/dL Note: This HDL assay may give artificially low results in patients with liver disease. Blood 06/02/2023 11:1 5 AM EST 06/02/2023 1:19 PM EST us Shannon Ordaz MD LAB BLOOD ORDERABLES Fin al Result Performing Organization Address City/[facility]/ZIP Co de Phone Number [facility] [address] [place] [address] [phone] * Mammography Report 1 (12/22/2021 12:08 PM EDT) Anatomical Region Laterality Modality Breast Bilateral Mammography 12/22/2021 12:0 8 PM EDT Narrative 12/30/2021 12:21 PM EDT Refer to the Notes tab for result details [facility] Procedure: Mammography Report 1 Procedure Note Provider, Yarelis, - 09/19/2022 Refer to the Notes tab for result details [facility] Procedure: Mammography Report 1 Shannon Ordaz MD IMG BI PROCEDURES Final Result * HPV mRNA E6/E7 (05/17/2018 9:40 AM EST) HPV mRNA E6/E7 Not Detected NOT DETECTED [facility] Comment: This test was performed using the APTIMA(R) HPV Assay ([employer] This assay detects E6/E7 viral messenger RNA (mRNA) from 14 high-risk HPV types (16,18,31,33,35,39,45,51, 52,56,58,59,66,68). For additional information please refer to: http://education.Netstory/faq/KNG250v5 (This link is being provided for informational/ educational purposes only.) The analytical performance characteristics of this assay have been determined by [employer] [place], [place]. The modifications have not been cleared or approved by the FDA. This assay has been validated pursuant to the CLIA regulations and is used for clinical purposes. Test Performed by [facility] [employer] [place], [address] [place] [address] Kraig Gonzalez M.D., Ph.D., Director of Laboratories , CLIA [id number] Please note: ??Effective 03/08/2016, HPV testing will be performed using [employer]'s APTIMA test which targets mRNA. Detecting mRNA instead of DNA, as in older methods, offers significant improvements in specificity. 05/17/2018 9:40 AM EST us Elsa Conner CNM HISTORICAL/NON ORDERABLE LABS Final Result [facility] [address] from Last 3 Months or Most Recently Relevant to Health Maintenance Insurance [facility] STANDARD MEDICARE Care Teams Deck Hand Relationship Specialty Start Date End Date Shannon Ordaz MD [address] [place] [address] PCP - General Family Medicine 06/11/19 Benjie Pineda FNP [address] [place] [address] Nurse Practitioner Family Medicine 05/23/23
--- OUTSIDE RECORDS SUMMARY | 2024-08-07 14:08 | XMS_ITS | Continuity of Care Document ---
Demographics Address [address] [place] [address] Mobile Phone Home Phone Preferred Language es Marital Status Legally Religion Affiliation Orthodox (non-Cat holic, non-specific) Race Unknown Ethnic Group or Author Organization [facility] Address [address] [phone] Phone Care Team Providers Care Hairspring Staker Name Role Phone Calin Dye DO Unavailable Unavailable Advance Directives Directive Yes / No Effective Date File Name No Information Encounters Encounter Description Practice Location Reason(s) For Visit Diagnoses Date Provider Providers Copied on Encounter [facility], [address] [place] [address], [id number], [place] tel:[phone] [place] No Information [address] [place], [place], [id number] , [place]. tel:[phone] Family History Family Member Type Diagnosis Age [...]
--- OUTSIDE RECORDS SUMMARY | 2024-08-07 14:08 | XMS_ITS | Encounter Summary ---
Author Organization [employer] Address [address] [place] [address] Care Team Providers Care Keying Machine Operator Name Role Phone Shannon Ordaz MD Primary Care Provider + Benjie Pineda Unavailable Unavailable Reason for Visit * Reason Comments Med Refill Encounter Details Date Type Department Care Team (Late st Contact Info) Description 07/08/[address] [facility] [address] [place], [place] [phone] Shannon Ordaz MD [address] [place] [address] Cárdenas's esophagus with dysplasia Social History Tobacco Use Types Packs/Day Years [...] as of this encounter Visit Diagnoses Diagnosis Cárdenas's esophagus with dysplasia documented in this encounter Additional Health Concerns Assessment Noted Time PHQ-9 Depression Total Score: 2 11/15/19 24 11:12 AM EDT documented as of this encounter Care Teams Keying Machine Operator Relationship Specialty Start Date End Date Shannon Ordaz MD [address] [place] [address] PCP - General Family Medicine 06/11/19 Benjie Pineda FNP [address] [place] [address] Nurse Practitioner Family Medicine 05/23/23 documented as of this encounter
[2024-08-07 15:53] LABS: Anion Gap 12 (12-20); Blood Urea Nitrogen 15 mg/dL (9-16); Calcium 9.1 mg/dL (8.4-10.2); Carbon Dioxide 29 mmol/L (22-29); Chloride 107 mmol/L (96-108); Estimated Glomerular Filt Rate 48; Potassium 4.5 mmol/L (3.3-5.1); Sodium 143 mmol/L (135-145)
== END 2024-08-07 12:58 | disposition home or self-care (01) ==
LOC: HO.LAB 12:57
PROVIDERS: PCP Internal Medicine; Visit Provider Internal Medicine Nephrology
DX: N18.31 Chronic kidney disease, stage 3a (principal); I10 Essential (primary) hypertension
CPT/HCPCS: 36415; 80051; 82310; 82565; 84520

== ENCOUNTER 2024-08-10 10:33 | Outpatient (AMB) | payer MEDICAID, SELFPAY ==
--- NOTE | 2024-08-10 10:37 | HO.NEPHOV_ITS ---
Vital Signs 08/10/24 10:42 Height 5 ft 2 in Weight 183 lb BMI 33.5 BP 102/60 Blood Pressure Location Lt brachial Position Sitting Pulse 79 Pulse Source Pulse Oximeter Pulse Oximetry (%) 95 Oxygen Delivery Method Room Air Intake Visit Reasons: 4mon follow up/ Conf Assembler Wet Wash Required: Yes Assembler Wet Wash Language: Spring Tier Services: Assembler Wet Wash Present Assembler Wet Wash Name: Aquilino [id number] Accompanied by: Self / Same As Patient Allergies No Known Allergies [No Known Allergies*] Allergy (Verified 08/10/24 10:42) HPI Comments Details: Gabrielle was seen in follow up for chronic kidney disease and hypertension. She has lot of arthritic issues and takes nonsteroidals as needed basis. She denies any coronary artery disease, congestive heart failure, carotid stenosis, CVA, renal artery stenosis or peripheral arterial disease. She has not a diabetic. She denies any nausea vomiting or diarrhea, pedal edema, shortness of breath, paroxysmal nocturnal dyspnea, orthopnea, orthostatic symptoms, hematuria or urinary symptoms. She was off diuretics and carvedilol for some time. She has history of CVA [facility] Medical History Chronic constipation History of colon polyps Internal hemorrhoids CVA (cerebral vascular accident) Abdominal pain Barretts esophagus Acid reflux Dyspnea Depression Anxiety Hypertension COPD (chronic obstructive pulmonary disease) Surgical History Hx of colonoscopy History of esophagogastroduodenoscopy (EGD) H/O section History of appendectomy History of cholecystectomy Family History Mother Cancer Maternal Grandmother Cancer Social History Household Members: None Alcohol intake: never Patient Tobacco Use Status: Never used Tobacco Current occupational status: disabled Review of Systems Const All systems reviewed & are unremarkable except as noted in HPI and below Physical Exam Const General: comfortable and no acute distress Orientation/consciousness: patient oriented x3 HEENT Head: Yes normocephalic Mouth: Normal oral and palatal mucosa present Eyes EOM: EOMs intact bilaterally Neck Neck: Yes supple Resp Auscultation: clear to auscultation bilaterally Cardio Jugular venous distension: no JVD Rate: regular rate GI Palpation (GI): Soft to palpation Auscultation: normal bowel sounds General: Yes no CVA tenderness Back/Spine/Pelvis Back: no CVA tenderness Skin General skin exam: no rashes or lesions noted Neuro General: patient oriented x3 and moves all extremities Extrem General: Yes no pedal edema Results Reviewed Nephrology Results: Hgb 10.5 g/dl (12.0-16.0) L 05/04/24 WBC 7.1 X10*3/uL (4.8-10.8) 05/04/24 Plt Count 173 X10*3/uL (160-400) 05/04/24 Sodium 143 mmol/L (135-145) 08/07/24 Potassium 4.5 mmol/L (3.3-5.1) 08/07/24 Chloride 107 mmol/L (96-108) 08/07/24 Carbon Dioxide 29 mmol/L (22-29) 08/07/24 BUN 15 mg/dL (9-16) 08/07/24 Creatinine 1.13 mg/dL (0.5-1.4) 08/07/24 Calcium 9.1 mg/dL (8.4-10.2) 08/07/24 Urine Protein Trace mg/dL (Neg-Trace) 05/04/24 Assessment & Plan Assessment & Plan (1) CKD (chronic kidney disease) stage 3, GFR 30-59 ml/min: Code(s): N18.30 - Chronic kidney disease, stage 3 unspecified Category: Medical Qualifiers: Chronic kidney disease stage 3 subtype: stage 3a (GFR 45-59) Qualified Code(s): N18.31 - Chronic kidney disease, stage 3a (2) Hypertension: Code(s): I10 - Essential (primary) hypertension Category: Medical Qualifiers: Hypertension type: primary hypertension Qualified Code(s): I10 - Essential (primary) hypertension Plan Her serum creatinine is close to baseline. She has CKD stage 3 due to vascular disease. She has hypertension and had been on HCTZ/Verapamil and ACEI. Her blood pressure has been on the lower side and all these medications have been put on hold. I plan to do a Doppler of her renal arteries with time. She does not have any significant proteinuria. She should avoid nonsteroidal anti- inflammatories and maintain good hydration. I did not make any medication changes today. Answered all questions. Follow-up lab studies ordered. Follow- up appointment given Orders: Orders Protein Creatinine Ratio, Ur 4 Months I10 - Essential (primary) hypertension, N18.31 - Chronic kidney disease, stage 3a Creatinine 4 Months I10 - Essential (primary) hypertension, N18.31 - Chronic kidney disease, stage 3a Blood Urea Nitrogen 4 Months I10 - Essential (primary) hypertension, N18.31 - Chronic kidney disease, stage 3a Electrolytes 4 Months I10 - Essential (primary) hypertension, N18.31 - Chronic kidney disease, stage 3a Coding Level of Care Code Est Pt Level 4 (00769) Diagnoses Stage 3a chronic kidney disease N18.31 Chronic kidney disease stage 3 subtype: stage 3a (GFR 45-59) Primary hypertension I10 Hypertension type: primary hypertension
[2024-08-10 10:42] VITALS: BP 102/60; PULSE 79; O2SAT 95; BMI 33.5
--- OUTSIDE RECORDS SUMMARY | 2024-08-10 11:24 | XMS_ITS | Encounter Summary ---
Author Organization [employer] Address [address] [place] [address] Care Team Providers Care Valve Grinder Name Role Phone Shannon Ordaz MD Primary Care Provider + Benjie Pineda Unavailable Unavailable Encounter Details Date Type Department Care Team (Late st Contact Info) Description 08/07/2024 Orders Only GENERIC EXTERNAL DATA DEPARTMENT Provider, Generic External Data Social History Tobacco Use Types Packs/Day Years [...] Blood Pressure 141/85(2024 9:27 AM EST) No Yanet Tse PharmNathan Record your blood pressure once per day Blood Pressure No Yanet Tse PharmD Take your medication every day Lifestyle No Yanet Tse PharmD documented as of this encounter Procedures Procedure Name Priority Date/Time Associated Diagnosis Comments CREATININE, SERUM Routine 08/07/2024 1:2 1 PM EST UREA NITROGEN (BUN) Routine 08/07/2024 1 :21 PM EST CALCIUM Routine 08/07/2024 1:21 PM EST ELECTROLYTE PANEL Routine 08/07/2024 1:2 1 PM EST documented in this encounter Results * Calcium (08/07/2024 1:21 PM EST) Calcium 9.1 8.4 - 10.2 mg/dL [facility] 08/07/2024 1:21 PM EST 08/07/2024 1:21 PM EST us Generic External Data Provider LAB BLOOD ORDERAB LES Final Result [facility] [address] [place] [phone] * Creatinine, Serum (08/07/2024 1:21 PM EST) Creatinine, Serum 1.13 0.5 - 1.4 mg/dL [facility] Estimated Glomerular Filt Rate 48 [facility] Comment:Chronic Kidney Disea se: Estimated GFR < 60 mL/min/[id number] Kidney Disease: Estimated GFR < 15 mL/min/1.73m2 08/07/2024 1:21 PM EST 08/07/2024 1:21 PM EST Generic External Data Provider LAB BLOOD ORDERAB LES Final Result Performing Organization Address [facility] Co de Phone Number [facility] [address] [place] [phone] * BUN (Blood Urea Nitrogen) (08/07/2024 1:21 PM EST) Urea Nitrogen (BUN) 15 9 - 16 mg/dL [facility] 08/07/2024 1:21 PM EST 08/07/2024 1:21 PM EST Generic External Data Provider LAB BLOOD ORDERAB LES Final Result Performing Organization Address [facility] Co de Phone Number [facility] [address] [place] [phone] * Electrolyte Panel (08/07/2024 1:21 PM EST) Sodium 143 135 - 145 mmol/L [facility] Potassium 4.5 3.3 - 5.1 mmol/L [facility] Chloride 107 96 - 108 mmol/L [facility] Carbon Dioxide 29 22 - 29 mmol/L [facility] Anion Gap 12 12 - 20 [facility] 08/07/2024 1:21 PM EST 08/07/2024 1:21 PM EST Generic External Data Provider LAB BLOOD ORDERAB LES Final Result Performing Organization Address City/[facility]/ZIP Co de Phone Number [facility] [address] [place] [phone] documented in this encounter Visit Diagnoses Not on filedocumented in this encounter Additional Health Concerns Assessment Noted Time PHQ-9 Depression Total Score: 2 11/15/19 24 11:12 AM EDT documented as of this encounter Care Teams Valve Grinder Relationship Specialty Start Date End Date Shannon Ordaz MD [address] [place] [phone] PCP - General Family Medicine 06/11/19 Benjie Pineda FNP [address] [place] [phone] Nurse Practitioner Family Medicine 05/23/23 documented as of this encounter
--- OUTSIDE RECORDS SUMMARY | 2024-08-10 11:24 | XMS_ITS | Clinical Summary ---
Author Organization [facility] Address [address] [place] [address] Phone Care Team Providers Care Hepatology Physician Name Role Phone Physician, No Pcp Primary [...] - Risk 60-74 years 1-dose series) 2018 Breast Cancer Screening 12/23/2023 12/22/2021 Cholesterol Screening (Lipid Panel) 01/17/2024 Colorectal Cancer Screening: Colonoscopy 01/17/2024 Falls Risk Assessment 01/17/2024 Hepatitis C Screening 01/17/2024 Medicare Annual Wellness Visit 01/17/2024 Osteoporosis Screening (Bone Density Screening) 01/17/2024 Social Influencers of Health Screening 01/17/2024 COVID-19 Vaccine ( season) 2024 11/25/2020, 10/29/2020 Depression Screening 11/14/2024 11/15/2023 Hypertension/CHF/CAD Annual BMP Blood Test 05/01/2025 05/01/2024, 04/26/2024, 02/13/2024 DTaP,Tdap,and Td Vaccines (2 - Td or Tdap) 05/08/2030 [...] mmol/L LAB CHEMISTRY METHOD 05/01/2024 9:21 AM [facility] Potassium 4.5 3.5 - 5.5 mmol/L LAB CHEMISTRY METHOD 05/01/2024 9:21 AM [facility] Chloride 107 96 - 110 mmol/L LAB CHEMISTRY METHOD 05/01/2024 9:21 AM [facility] CO2 29 21 - 32 mmol/L LAB CHEMISTRY METHOD 05/01/2024 9:21 AM [facility] Anion Gap 7 3 - 11 LAB CHEMISTRY METHOD 05/01/2024 9:21 AM [facility] Glucose 109(H) 70 - 100 mg/dL LAB CHEMISTRY METHOD 05/01/2024 9:21 AM [facility] BUN 16 5 - 25 mg/dL LAB CHEMISTRY METHOD 05/01/2024 9:21 AM [facility] Creatinine 1.25(H) 0.50 - 1.10 mg/dL LAB CHEMISTRY METHOD 05/01/2024 9:21 AM [facility] eGFR 48(L) >=60 mL/min/1. 73m2 LAB CHEMISTRY METHOD 05/01/2024 9:21 AM [facility] Comment:Calculation based on the??Chronic Kidney Disease Epidemiology Collaboration (CKD-EPI) equation refit??without adjustment for race. BUN/Creatinine Ratio 12.8 LAB CHEMISTRY METHOD 05/01/2024 9:21 AM [facility] Calcium 9.0 8.5 - 10.5 mg/dL LAB CHEMISTRY METHOD 05/01/2024 9:21 AM [facility] Blood Venous blood specimen / Unknown Venipuncture / Unknown 05/01/2024 8:57 AM EST 05/01/2024 9:00 AM EST us Keon Nunes DO LAB BLOOD ORDERABLES Final Result [facility] ([facility]) [facility] [address] [place] [address], [place] [phone] from Last 3 Months or Most Recently Relevant to Health Maintenance Insurance MEDICAID - [place] MEDICARE Advance Directives Documents on File Type Date Recorded Patient Project Portfolio Analyst Expl anation Health Care Decision (hx) 04/26/2024 KEIL SANDERSON DIRECTIVE Care Teams Hepatology Physician Relationship Specialty Start Date End Date Physician, No Pcp PCP - General 05/01/24
--- OUTSIDE RECORDS SUMMARY | 2024-08-10 11:24 | XMS_ITS | Encounter Summary ---
Author Organization [employer] Address [address] [place] [address] [address]t [place] [address] Care Team Providers Care Forepart Rounder Name Role Phone Shannon Ordaz MD Primary Care Provider + Benjie Pineda Unavailable Unavailable Reason for Visit * Reason Onset Date Comments Medication Question 11/16/2022 Encounter Details Date Type Department Care Team ([facility] st Contact Info) Description 11/16/2022 Telephone [facility] MEDICINE [address] [place], [place] [phone] Shannon Ordaz MD [address] [place], [place] [phone] Medication Question Social History Tobacco Use Types [...] were discussed however meditech reviewed and pt.'s assistant auto center manager prescribes them. * Telephone Encounter - Alta [...] documented as of this encounter Care Teams Forepart Rounder Relationship Specialty Start Date End Date Shannon Ordaz MD [address] [place] [address] PCP - General Family Medicine 06/11/19 Benjie Pineda FNP [address] [place] [address] Nurse Practitioner Family Medicine 05/23/23 [facility] 04/25/24 05/03/24 documented as of this encounter
--- OUTSIDE RECORDS SUMMARY | 2024-08-10 11:24 | XMS_ITS | Encounter Summary ---
Author Organization [employer] Address [address] [facility] 7t [place] [address] Care Team Providers Care Cartridge Loading Operator Name Role Phone Shannon Ordaz MD Primary Care Provider + Benjie Pineda Unavailable Unavailable Encounter Details Date Type Department Care Team (Late st Contact Info) Description 07/21/2023 Abstract [facility] MEDICINE [address] [place], [place] [phone] Shannon Ordaz MD [address] [place], [place] [phone] Social History Tobacco Use Types Packs/Day Years [...] (ABNORMAL) Colonoscopy (07/19/2023) Colonoscopy Abnormal(A ) Normal [facility] Comment:TA us Shannon Ordaz MD HEALTH MAINTENANCE Edite d Result - Final [facility] [address] [place] [phone] documented in this encounter Visit Diagnoses Not on filedocumented in this encounter Additional Health Concerns Assessment Noted Time PHQ-9 Depression Total Score: 3 05/31/20 23 10:47 AM EST documented as of this encounter Care Teams Cartridge Loading Operator Relationship Specialty Start Date End Date Shannon Ordaz MD [address] [place] [address] PCP - General Family Medicine 06/11/19 Benjie Pineda FNP [address] [place] [address] Nurse Practitioner Family Medicine 05/23/23 [facility] 04/25/24 05/03/24 documented as of this encounter
--- OUTSIDE RECORDS SUMMARY | 2024-08-10 11:24 | XMS_ITS | Encounter Summary ---
Author Organization [employer] Address [address] [facility] 7t [place] [address] Care Team Providers Care Earth Science Laboratory Technician Name Role Phone Shannon Ordaz MD Primary Care Provider + Benjie Pineda Unavailable Unavailable Reason for Visit * Reason Onset Date Comments Hospital Follow-up 03/22/2024 Encounter Details Date Type Department Care Team ([facility] st Contact Info) Description 03/22/2024 Telephone [facility] MEDICINE 230 [place], [place] [phone] Shannon Ordaz MD [address] [place], [place] [phone] Hospital Follow-up Social History Tobacco Use Types [...] from pt requesting a HDF appt. Hospital: [facility] Date of admission: 03/17/24 Discharge date: [...] documented as of this encounter Care Teams Earth Science Laboratory Technician Relationship Specialty Start Date End Date Shannon Ordaz MD [address] [place] [address] PCP - General Family Medicine 12/16/19 Benjie Pineda FNP [address] [place] [address] Nurse Practitioner Family Medicine 05/23/23 [facility] 04/25/24 05/03/24 documented as of this encounter
--- OUTSIDE RECORDS SUMMARY | 2024-08-10 11:24 | XMS_ITS | Encounter Summary ---
Author Organization [employer] Address [address] [place] [address] 7t [place] [address] Care Team Providers Care Filler In Name Role Phone Shannon Ordaz MD Primary Care Provider + Benjie Pineda Unavailable Unavailable Encounter Details Date Type Department Care Team (Late st Contact Info) Description 08/30/2022 Orders Only [facility] MEDICINE [address] [place], [place] [phone] Radha Hubbard MD [address] [place], [place] [phone] Neuropathy involving both lower extremities (Primary Dx) [...] documented as of this encounter Care Teams Filler In Relationship Specialty Start Date End Date Shannon Ordaz MD [address] [place] [address] PCP - General Family Medicine 06/11/19 Benjie Pineda FNP [address] [place] [address] Nurse Practitioner Family Medicine 05/23/23 [facility] 04/25/24 05/03/24 documented as of this encounter
--- OUTSIDE RECORDS SUMMARY | 2024-08-10 11:24 | XMS_ITS | Encounter Summary ---
Author Organization [employer] Address [address] [facility] 7t [place] [address] Care Team Providers Care Picker Operator Name Role Phone Shannon Ordaz MD Primary Care Provider + Benjie Pineda Unavailable Unavailable Reason for Visit * Reason Comments Med Refill Encounter Details Date Type Department Care Team (Late st Contact Info) Description 08/10/2024 Refill [facility] MEDICINE [address] [place], [place] [phone] Shannon Ordaz MD [address] [place] [address] Anxiety and depression Social History Tobacco Use [...] enough money to get more: Often true 04/ 06/2023 Transportation Answer Date Recorded In the [...] as of this encounter Visit Diagnoses Diagnosis Anxiety and depression documented in this encounter Additional Health Concerns Assessment Noted Time PHQ-9 Depression Total Score: 2 11/15/19 24 11:12 AM EDT documented as of this encounter Care Teams Picker Operator Relationship Specialty Start Date End Date Shannon Ordaz MD [address] [place] [address] PCP - General Family Medicine 06/11/19 Benjie Pineda FNP [address] [place] [address] Nurse Practitioner Family Medicine 05/23/23 documented as of this encounter
--- OUTSIDE RECORDS SUMMARY | 2024-08-10 11:24 | XMS_ITS | Encounter Summary ---
Author Organization [employer] Address [address] [facility] 7t [place] [address] Care Team Providers Care Glass Vial Filler Name Role Phone Shannon Ordaz MD Primary Care Provider + Benjie Pineda Unavailable Unavailable Reason for Visit * Reason Onset Date Comments FYI 03/22/2024 Encounter Details Date Type Department Care Team ([facility] st Contact Info) Description 03/22/2024 Telephone [facility] MEDICINE [address] [place], [place] [phone] Shannon Ordaz MD [address] [place], [place] [phone] FY Social History Tobacco Use Types Packs/Day [...] AM EDT Tc jordan Crump at [facility] calling to inform the provider attempted [...] documented as of this encounter Care Teams Glass Vial Filler Relationship Specialty Start Date End Date Shannon Ordaz MD [address] [place] [address] PCP - General Family Medicine 06/11/19 Benjie Pineda FNP [address] [place] [address] Nurse Practitioner Family Medicine 05/23/23 [facility] 04/25/24 05/03/24 documented as of this encounter
--- OUTSIDE RECORDS SUMMARY | 2024-08-10 11:24 | XMS_ITS | Encounter Summary ---
Author Organization [employer] Address [address] [facility] 7t [place] [address] Care Team Providers Care Mechanic General Operational Test Name Role Phone Shannon Ordaz MD Primary Care Provider + Benjie Pineda Unavailable Unavailable Reason for Visit * Reason Comments Med Refill Encounter Details Date Type Department Care Team ([facility] st Contact Info) Description 08/30/2023 Refill [facility] [address] [place], [place] [phone] Shannon Ordaz MD [address] [place] [address] Social History Tobacco Use Types Packs/Day Years [...] documented as of this encounter Care Teams Mechanic General Operational Test Relationship Specialty Start Date End Date Shannon Ordaz MD [address] [place] [address] PCP - General Family Medicine 06/11/19 Benjie Pineda FNP [address] [place] [address] Nurse Practitioner Family Medicine 05/23/23 [facility] 04/25/24 05/03/24 documented as of this encounter
--- OUTSIDE RECORDS SUMMARY | 2024-08-10 11:24 | XMS_ITS | Encounter Summary ---
Author Organization [employer] Address [address] [place] [address] 7t [place] [address] Care Team Providers Care Corporate Compliance Director Name Role Phone Shannon Ordaz MD Primary Care Provider + Benjie Pineda Unavailable Unavailable Reason for Visit * Reason Onset Date Comments Appointment Request 08/26/2022 Encounter Details Date Type Department Care Team ([facility] st Contact Info) Description 08/26/2022 Telephone [facility] MEDICINE [address] [place], [place] [phone] Shannon Ordaz MD [address] [place], [place] [phone] Appointment Request Social History Tobacco Use Types [...] labs/htn RCL ) Please contact pt at [phone] documented in this encounter Plan of Treatment Not on file documented as of this encounter Visit Diagnoses Not on filedocumented in this encounter Additional Health Concerns Assessment Noted Time PHQ-9 Depression Total Score: 9 08/19/19 23 11:05 AM EST documented as of this encounter Care Teams Corporate Compliance Director Relationship Specialty Start Date End Date Shannon Ordaz MD [address] [place] [address] PCP - General Family Medicine 06/11/19 Benjie Pineda FNP [address] [place] [address] Nurse Practitioner Family Medicine 05/23/23 [facility] 04/25/24 05/03/24 documented as of this encounter
--- OUTSIDE RECORDS SUMMARY | 2024-08-10 11:24 | XMS_ITS | Continuity of Care Document ---
Demographics Address [address] [facility] [place] [address] Mobile Phone Home Phone Preferred Language es Marital Status Legally Taoism Affiliation Rastafari (non-Cat holic, non-specific) Race Unknown Ethnic Group or Author Organization [facility] Address [address] [address] Phone Care Team Providers Care Assistant Manager Of Operations Name Role Phone Calin Dye DO Unavailable Unavailable Advance Directives Directive Yes / No Effective Date File Name No Information Encounters Encounter Description Practice Location Reason(s) For Visit Diagnoses Date Provider Providers Copied on Encounter [facility], [address] [place] [address], [id number], [place] tel:[phone] [place] No Information [address] [place], [place], [id number] , [place]. tel:[phone] Family History Family Member Type Diagnosis Age [...]
--- OUTSIDE RECORDS SUMMARY | 2024-08-10 11:24 | XMS_ITS | Encounter Summary ---
Author Organization [employer] Address [address] [facility] 7t [place] [address] Care Team Providers Care Emergency Communications Dispatcher Name Role Phone Shannon Ordaz MD Primary Care Provider + Benjie Pineda Unavailable Unavailable Encounter Details Date Type Department Care Team (Late st Contact Info) Description 11/23/2023 Orders Only [facility] MEDICINE [address] [place] [address] ProviderYarelis MD Social History Tobacco Use Types [...] documented as of this encounter Care Teams Emergency Communications Dispatcher Relationship Specialty Start Date End Date Shannon Ordaz MD [address] [place] [address] PCP - General Family Medicine 06/11/19 Benjie Pineda FNP [address] [place] [address] Nurse Practitioner Family Medicine 05/23/23 [facility] 04/25/24 05/03/24 documented as of this encounter
--- OUTSIDE RECORDS SUMMARY | 2024-08-10 11:24 | XMS_ITS | Encounter Summary ---
Author Organization [employer] Address [address] [place] [address] 7t [place] [address] Care Team Providers Care Entry Level Recruiter Name Role Phone Shannon Ordaz MD Primary Care Provider + Benjie Pineda Unavailable Unavailable Encounter Details Date Type Department Care Team (Late st Contact Info) Description 03/01/2023 Abstract [facility] MEDICINE 230 [place], [place] [phone] Shannon Ordaz MD [address] [place] [address] Social History Tobacco Use Types Packs/Day Years [...] documented as of this encounter Care Teams Entry Level Recruiter Relationship Specialty Start Date End Date Shannon Ordaz MD [address] [place], [place] [phone] PCP - General Family Medicine 06/11/19 Benjie Pineda FNP [address] [place] [address] Nurse Practitioner Family Medicine 05/23/23 [facility] 04/25/24 05/03/24 documented as of this encounter
--- OUTSIDE RECORDS SUMMARY | 2024-08-10 11:24 | XMS_ITS | Encounter Summary ---
Author Organization [employer] Address [address] [place] [address] 7 [place] [address] Care Team Providers Care Parallel Computing Software Engineer Name Role Phone Shannon Ordaz MD Primary Care Provider + Benjie Pineda Unavailable Unavailable Reason for Visit * Reason Onset Date Comments Referral 08/26/2022 Encounter Details Date Type Department Care Team (Late st Contact Info) Description 08/26/2022 Telephone [facility] MEDICINE 230 [place], [place] [phone] Shannon Ordaz MD [address] [place], [place] [phone] Referral Social History Tobacco Use Types Packs/Day [...] 3:08 PM EST TC returned to pt [phone] to inform pt provider has placed PT referral today. Pt verbalized understanding. RN will send message to site acquisition specialist to ensure referral gets processed as pt's appt is on 09/03/22. * Telephone Encounter - Alta Daniel - 08/30/2022 12:03 PM EST Tc from pt checking status on physical therapy referral . * Telephone Encounter - Kellikeegan Jaime Storm - 08/26/2022 4:28 PM EST Tc from pt returning call regarding missing information she didn't have for the referral needed forphysical therapy. Location: [address] [address] Phone #: [phone] Please contact pt at [phone] documented in this encounter Plan of Treatment Not on file documented as of this encounter Visit Diagnoses Not on filedocumented in this encounter Additional Health Concerns Assessment Noted Time PHQ-9 Depression Total Score: 9 08/19/19 23 11:05 AM EST documented as of this encounter Care Teams Parallel Computing Software Engineer Relationship Specialty Start Date End Date Shannon Ordaz MD [address] [place] [address] PCP - General Family Medicine 06/11/19 Benjie Pineda FNP [address] [place] [address] Nurse Practitioner Family Medicine 05/23/23 [facility] 04/25/24 05/03/24 documented as of this encounter
--- OUTSIDE RECORDS SUMMARY | 2024-08-10 11:24 | XMS_ITS | Encounter Summary ---
Author Organization [employer] Address [address] [facility] 7t [place] [address] Care Team Providers Care Peoplesoft Financial Developer Name Role Phone Shannon Ordaz MD Primary Care Provider + Benjie Pineda Unavailable Unavailable Encounter Details Date Type Department Care Team (Late st Contact Info) Description 04/24/2024 Orders Only [facility] [address] [place], [place] [phone] ProviderYarelis MD Social History Tobacco Use Types [...] documented as of this encounter Care Teams Peoplesoft Financial Developer Relationship Specialty Start Date End Date Shannon Ordaz MD [address] [place] [address] PCP - General Family Medicine 06/11/19 Benjie Pineda FNP [address] [place] [address] Nurse Practitioner Family Medicine 05/23/23 [facility] 04/25/24 05/03/24 documented as of this encounter
--- OUTSIDE RECORDS SUMMARY | 2024-08-10 11:25 | XMS_ITS | Encounter Summary ---
Author Organization [employer] Address [address] [place] [address] 7 [place] [address] Care Team Providers Care Cigarette Packing Machine Operator Name Role Phone Shannon Ordaz MD Primary Care Provider + Benjie Pineda Unavailable Unavailable Reason for Visit * Reason Comments Med Refill Encounter Details Date Type Department Care Team (Late st Contact Info) Description 06/29/2022 Refill [facility] MEDICINE [address] [place] [address] Benjie Pineda FNP Social History Tobacco Use [...] on filedocumented in this encounter Care Teams Cigarette Packing Machine Operator Relationship Specialty Start Date End Date Shannon Ordaz MD [address] [place] [address] PCP - General Family Medicine 06/11/19 Benjie Pineda FNP [address] [place] [address] Nurse Practitioner Family Medicine 05/23/23 [facility] 04/25/24 05/03/24 documented as of this encounter
--- OUTSIDE RECORDS SUMMARY | 2024-08-10 11:25 | XMS_ITS | Encounter Summary ---
Author Organization [employer] Address [address] [facility] 7t [place] [address] Care Team Providers Care Medical Photographer Name Role Phone Shannon Ordaz MD Primary Care Provider + Benjie Pineda Unavailable Unavailable Reason for Visit * Reason Comments Med Refill Encounter Details Date Type Department Care Team (Late st Contact Info) Description 07/11/2024 Refill [facility] MEDICINE [address] [place], [place] [phone] Shannon Ordaz MD [address] [place] [address] Mixed hyperlipidemia; Anxiety and depression Social History [...] documented as of this encounter Care Teams Medical Photographer Relationship Specialty Start Date End Date Shannon Ordaz MD [address] [place] [address] PCP - General Family Medicine 06/11/19 Benjie Pineda FNP [address] [place] [address] Nurse Practitioner Family Medicine 05/23/23 documented as of this encounter
--- OUTSIDE RECORDS SUMMARY | 2024-08-10 11:25 | XMS_ITS | Clinical Summary ---
Author Organization [employer] Address [address] [place] [address] 7t [place] [address] Care Team Providers Care Bindery Technician Name Role Phone Shannon Ordaz MD [...] misc Use daily as prescribed 1 each 024 Active lidocaine (Lidoderm) 5 % patchIndications: Pain in rib Apply 1 patch topically Once per day. Remove & discard patch within 12 hours or as directed by MD. 30 patch 1 024 Active pantoprazole (ProtoNix) 40 MG EC tabletIndications :Cárdenas's esophagus with dysplasia TAKE 1 TABLET BY MOUTH TWICE DAILY IN THE MORNING AND IN THE EVENING 180 tablet 3 025 Active atorvastatin (Lipitor) 10 MG tabletIndications :Mixed hyperlipidemia TAKE 1 TABLET BY MOUTH AT BEDTIME 90 tablet 025 Active Aspirin Low Dose 81 MG EC tabletIndications :TIA (transient ischemic attack) TAKE 1 TABLET BY MOUTH EVERY MORNING 90 tablet 3 025 Active gabapentin (Neurontin) 600 MG tabletIndications :Anxiety and depression TAKE 1 TABLET BY MOUTH TWICE DAILY IN THE MORNING AND AT BEDTIME 60 tablet 025 Active aspirin 81 MG EC tabletIndications :TIA (transient ischemic attack) Take 1 tablet (81 mg) by mouth in the morning. 30 tablet 11 023 2024 Discontinued gabapentin (Neurontin) 600 MG tabletIndications :Anxiety and depression TAKE 1 TABLET BY MOUTH TWICE DAILY IN THE MORNING AND AT BEDTIME 60 tablet 025 2024 Discontinued Active Problems Patient Care Coordination [...] with me in 2-3w. Order labs to vicenta choudhary imbalance Advised to use cane for ambulation, use shower chair and bedside commode to prevent accidents at home. She has a DRIVEWAY SEALER to help with ADLs, I told patient to avoid any activity that can put her at risk , that otherwise is to be assisted by DRIVEWAY SEALER . Anemia 02/13/2024 History of colon polyps [...] stable. 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 06/02/2023 08/01/2023 Assessment [...] Encounters Date Type Department Care Team Description 08/10/2024 Refill [facility] MEDIC[facility] [address] [place] [address] Shannon Ordaz MD Anxiety and depression 08/07/2024 Orders Only GENERIC EXTERNAL DATA DEPARTMENT Provider, Generic External Data 08/07/2024 Refill [facility] [address] [place] [address] Shannon Ordaz MD TIA (transient ischemic attack) 07/25/2024 9:00 AM EST Office Visit [facility] [address] [place] [address] Len Bynum MD Pre-op evaluation (Primary Dx) 07/11/2024 Refill [facility] [address] [place] [address] Shannon Ordaz MD Mixed hyperlipidemia; Anxiety and depression 07/08/2024 Refill [facility] [address] [place] [address] Shannon Ordaz MD Cárdenas's esophagus with dysplasia 06/21/2024 Telephone [facility] [address] [place] [address] Shannon Ordaz MD Pre-op Exam 06/18/2024 Refill [facility] [address] [place] [address] Shannon Ordaz MD Anxiety and depression 06/13/2024 Refill [facility] [address] [place] [address] Shannon Ordaz MD Primary hypertension 06/06/2024 Telephone [facility] OPTOMETRY [address] [place] [address] Raina Hathaway, OD 05/23/2024 9:00 AM EST Office Visit [facility] [address] [place] [address] Shannon Ordaz MD Benign essential HTN (Primary Dx); Acute pyelonephritis; Class 1 obesity due to excess calories with serious comorbidity and body mass index (BMI) of 33.0 to 33.9 in adult; Stage 3a chronic kidney disease ([facility]/HCC); Sickle cell trait ([facility]); Dietary counseling; Exercise counseling 05/23/2024 Travel 05/22/2024 Telephone [facility] [address] [place] [address] Elsie Beal MA Chart prep 05/16/2024 Refill [facility] [address] [place] [address] Shannon Ordaz MD Anxiety and depression 05/11/2024 3:00 PM EST Office Visit [facility] OPTOMETRY [address] [place] [address] Raina Hathaway, OD Combined forms of age-related cataract of both eyes (Primary Dx); Epiretinal membrane, both eyes; Dry eyes 05/11/2024 Travel from Last 3 Months Immunizations Name Administration [...] Orientation Straight 05/31/2022 9: 45 AM EST Last Filed Vital Signs Vital [...] 141/85(2024 9:27 AM EST) No Yanet Tse PharmD Record your blood pressure once per day Blood Pressure No Yanet Tse PharmD Take your medication every day Lifestyle No Yanet Tse PharmNathan Procedures Procedure Name Priority Date/Time Associated Diagnosis Comments CALCIUM Routine 08/07/2024 1:21 PM EST CREATININE, SERUM Routine 08/07/2024 1:2 1 PM EST UREA NITROGEN (BUN) Routine 08/07/2024 1 :21 PM EST ELECTROLYTE PANEL Routine 08/07/2024 1:2 1 PM EST OCT, RETINA - OU - BOTH EYES Routine 05/11/2024 3:00 PM EST Epiretinal membrane, both eyes HM COLONOSCOPY Routine 07/19/2023 LIPID PANEL WITH REFLEX TO DIRECT LDL Routine 06/02/2023 11:15 AM EST Elevated blood-pressure reading without diagnosis of hypertension TIA (transient ischemic attack) MAMMOGRAM GENERIC Routine 12/22/2021 12: 08 PM EDT ZZZ HISTORICAL HPV MRNA E6/E7 Routine 05/17/2018 9:40 AM EST from Last 3 Months or Most Recently Relevant to Health Maintenance Results * Creatinine, Serum (08/07/2024 1:21 PM EST) Creatinine, Serum 1.13 0.5 - 1.4 mg/dL [facility] Estimated Glomerular Filt Rate 48 [facility] Comment:Chronic Kidney Disea se: Estimated GFR < 60 mL/min/1.73b5Ekzbie Kidney Disease: Estimated GFR < 15 mL/min/1.73m2 08/07/2024 1:21 PM EST 08/07/2024 1:21 PM EST us Generic External Data Provider LAB BLOOD ORDERAB LES Final Result Performing Organization Address [facility]/ZIP Co de Phone Number [facility] [address] [place] [phone] * BUN (Blood Urea Nitrogen) (08/07/2024 1:21 PM EST) Urea Nitrogen (BUN) 15 9 - 16 mg/dL [facility] 08/07/2024 1:21 PM EST 08/07/2024 1:21 PM EST us Generic External Data Provider LAB BLOOD ORDERAB LES Final Result Performing Organization Address [facility]/ZIP Co de Phone Number [facility] [address] [place] [phone] * Calcium (08/07/2024 1:21 PM EST) Calcium 9.1 8.4 - 10.2 mg/dL [facility] 08/07/2024 1:21 PM EST 08/07/2024 1:21 PM EST us Generic External Data Provider LAB BLOOD ORDERAB LES Final Result Performing Organization Address [facility]/ZIP Co de Phone Number [facility] [address] [place] [phone] * Electrolyte Panel (08/07/2024 1:21 PM EST) Sodium 143 135 - 145 mmol/L [facility] Potassium 4.5 3.3 - 5.1 mmol/L [facility] Chloride 107 96 - 108 mmol/L [facility] Carbon Dioxide 29 22 - 29 mmol/L [facility] Anion Gap 12 12 - 20 [facility] 08/07/2024 1:21 PM EST 08/07/2024 1:21 PM EST us Generic External Data Provider LAB BLOOD ORDERAB LES Final Result Performing Organization Address [facility] Co de Phone Number [facility] [address] [place] [address] [phone] * OCT, Retina - OU - Both Eyes (05/11/2024 3:00 PM EST) Narrative Raina Hathaway, OD - 05/29/2024 1:54 PM EST Test not needed. us Raina Hathaway OD OPHTH TOMOGRAPHY Final Result * (ABNORMAL) Hm Colonoscopy (07/19/2023) Pathologist [facility] Colonoscopy Abnormal(A ) Normal [facility] Comment:TA us Shannon Ordaz MD HEALTH MAINTENANCE Edite d Result - Final Performing Organization Address [facility] Co de Phone Number [facility] [address] [place] [phone] [phone] * Lipid Panel with Reflex to Direct LDL (06/02/2023 11:15 AM EST) Triglycerides 80 <150 mg/dL [facility] Comment:Desirable Triglyceri de: less than 150 mg/dLBorderline High Triglyceride 150-199 mg/dLHigh Triglyceride: 200-499 mg/dLVery High Triglyceride: greater than or equal to 5OO mg/dL Cholesterol 149 <200 mg/dL [facility] Comment:Desirable Cholestero l: less than 200 mg/dLBorderline High Cholesterol: 200-239 mg/dLHigh Cholesterol: greater than 239 mg/dL LDL Cholesterol Calculated 76 <100 mg/dL [facility] Comment:Desirable LDL: less than 100 mg/dLNear Optimal/Above Optimal LDL: 110- 129 mg/dLBorderline High LDL: 130-159 mg/dLHigh LDL: 160-189 mg/dLVery High LDL: greater than or equal to 190 mg/dL HDL Cholesterol 57 >40 mg/dL [facility] Comment:Desirable HDL: great er than 40 mg/dL Note: This HDL assay may give artificially low results in patients with liver disease. Blood 06/02/2023 11:1 5 AM EST 06/02/2023 1:19 PM EST Shannon Ordaz MD LAB BLOOD ORDERABLES Fin al Result [facility] [address] [place] [phone] * Mammography Report 1 (12/22/2021 12:08 PM EDT) Anatomical Region Laterality Modality Breast Bilateral Mammography 12/22/2021 12:0 8 PM EDT Narrative 12/30/2021 12:21 PM EDT Refer to the Notes tab for result details [facility] Procedure: Mammography Report 1 Procedure Note Provider, MD Yarelis - 09/19/2022 Refer to the Notes tab for result details [facility] Procedure: Mammography Report 1 Shannon Ordaz MD IMG BI PROCEDURES Final Result * HPV mRNA E6/E7 (05/17/2018 9:40 AM EST) HPV mRNA E6/E7 Not Detected NOT DETECTED [facility] Comment: This test was performed using the APTIMA(R) HPV Assay ([employer] This assay detects E6/E7 viral messenger RNA (mRNA) from 14 high-risk HPV types (16,18,31,33,35,39,45,51, 52,56,58,59,66,68). For additional information please refer to: http://education.[employer].Skipjump/faq/OTM848y9 (This link is being provided for informational/ educational purposes only.) The analytical performance characteristics of this assay have been determined by [facility] [place]. The modifications have not been cleared or approved by the FDA. This assay has been validated pursuant to the CLIA regulations and is used for clinical purposes. Test Performed by [facility], [facility][1], [address] [place] [address] Kraig Gonzalez M.D., Ph.D., Director of Laboratories , CLIA [id number] Please note: ??Effective 03/08/2016, HPV testing will be performed using [employer]'s APTIMA test which targets mRNA. Detecting mRNA instead of DNA, as in older methods, offers significant improvements in specificity. 05/17/2018 9:40 AM EST Elsa Conner CNM HISTORICAL/NON ORDERABLE LABS Final Result [facility] [address] from Last 3 Months or Most Recently Relevant to Health Maintenance Insurance MEDICARE Care Teams Bindery Technician Relationship Specialty Start Date End Date Shannon Ordaz MD [address] [place] [address] PCP - General Family Medicine 06/11/19 Benjie Pineda FNP [address] [place] [address] Nurse Practitioner Family Medicine 05/23/23
--- OUTSIDE RECORDS SUMMARY | 2024-08-10 11:25 | XMS_ITS | Encounter Summary ---
Author Organization [email or web address] Address [address] [place] [address] 7t [place] [address] Care Team Providers Care Commercial Shrimping Captain Name Role Phone Shannon Ordaz MD Primary Care Provider + Benjie Pineda Unavailable Unavailable Reason for Visit * Reason Comments Med Refill Encounter Details Date Type Department Care Team ([facility] st Contact Info) Description 07/26/2022 Refill [facility] MED[facility]INE [address] [place] [address] Benjie Pineda FNP Major depressive disorder, recurrent [...] documented as of this encounter Care Teams Commercial Shrimping Captain Relationship Specialty Start Date End Date Shannon Ordaz MD [address] [place] [address] PCP - General Family Medicine 06/11/19 Benjie Pineda FNP [address] [place] [address] Nurse Practitioner Family Medicine 05/23/23 [facility] 04/25/24 05/03/24 documented as of this encounter
--- OUTSIDE RECORDS SUMMARY | 2024-08-10 11:25 | XMS_ITS | Encounter Summary ---
Author Organization [employer] Address [address] [facility] 7t [place] [address] Care Team Providers Care Engineer Remote Control Diesel Name Role Phone Shannon Ordaz MD Primary Care Provider + Benjie Pineda Unavailable Unavailable Reason for Visit * Reason Onset Date Comments Pre-op Exam 06/21/2024 Encounter Details Date Type Department Care Team ([facility] st Contact Info) Description 06/21/2024 Telephone [facility] MEDICINE [address] [place], [place] [phone] Shannon Ordaz MD [address] [place], [place] [phone] Pre-op Exam Social History Tobacco Use Types [...] Melita Stevenson - 06/21/2024 9:57 AM EST Technical Solutions Director spoke with Melanie at [facility] and agreed to inform pt she is scheduled for pre op on 07/25/24 at 9AM with . Appointment reminder letter mailed Date of Surgery: 08/07/2024 and 08/23/2024 (right eye) Surgical procedure being done: Cataract Surgery Type of anesthesia: MAC Lab needed: No EKG: No Surgeon's name: Tino Falk Facility name: [facility] Surgeon's office number: [phone] Surgeon's office fax number: [phone] Contact name (person you spoke with): Melanie Last office note from surgeon requested: No * Telephone Encounter - Watson Abdi - 06/21/2024 9:08 AM EST Date of Surgery: 08/07/2024 and 08/23/2024 (right eye) Surgical procedure being done: Cataract Surgery Type of anesthesia: MAC Lab needed: No EKG: No Surgeon's name: Tino Falk Facility name: [facility] Surgeon's office number: [phone] Surgeon's office fax number: [phone] Contact name (person you spoke with): Melanie [...] documented as of this encounter Care Teams Engineer Remote Control Diesel Relationship Specialty Start Date End Date Shannon Ordaz MD [address] [place] [address] PCP - General Family Medicine 06/11/19 Benjie Pineda FNP [address] [place] [address] Nurse Practitioner Family Medicine 05/23/23 documented as of this encounter
--- OUTSIDE RECORDS SUMMARY | 2024-08-10 11:25 | XMS_ITS | Encounter Summary ---
Author Organization [employer] Address [address] [place] [address] 7t [place] [address] Care Team Providers Care Public Health Advisor Name Role Phone Shannon Ordaz MD Primary Care Provider + Benjie Pineda Unavailable Unavailable Reason for Visit * Reason Comments Pre-op Exam Encounter Details Date Type Department Care Team ([facility] st Contact Info) Description 07/25/2024 9:00 AM EST Office Visit [facility] MEDICINE [address] [place], [place] [phone] Name, MD Len [address] [place] [address] Pre-op evaluation (Primary Dx) Social History Tobacco [...] documented as of this encounter Care Teams Public Health Advisor Relationship Specialty Start Date End Date Shannon Ordaz MD [address] [place] [address] PCP - General Family Medicine 06/11/19 Benjie Pineda FNP [address] [place] [address] Nurse Practitioner Family Medicine 05/23/23 documented as of this encounter
--- OUTSIDE RECORDS SUMMARY | 2024-08-10 11:25 | XMS_ITS | Encounter Summary ---
Author Organization [employer] Address [address] [facility] 7t [place] [address] Care Team Providers Care Manager Front Office Name Role Phone Shannon Ordaz MD Primary Care Provider + Benjie Pineda Unavailable Unavailable Reason for Visit * Reason Comments Med Refill Encounter Details Date Type Department Care Team (Late st Contact Info) Description 06/13/2024 Refill [facility] MEDICINE [address] [place], [place] [phone] Shannon Ordaz MD [address] [place] [address] Primary hypertension Social History Tobacco Use Types [...] documented as of this encounter Care Teams Manager Front Office Relationship Specialty Start Date End Date Shannon Ordaz MD [address] [place] [address] PCP - General Family Medicine 06/11/19 Benjie Pineda FNP [address] [place] [address] Nurse Practitioner Family Medicine 05/23/23 documented as of this encounter
--- OUTSIDE RECORDS SUMMARY | 2024-08-10 11:25 | XMS_ITS | Encounter Summary ---
Author Organization [employer] Address [address] [facility] 7t [place] [address] Care Team Providers Care Side Gluer Name Role Phone Shannon Ordaz MD Primary Care Provider + Benjie Pineda Unavailable Unavailable Reason for Visit * Reason Comments Med Refill Encounter Details Date Type Department Care Team (Late st Contact Info) Description 08/07/2024 Refill [facility] MEDICINE [address] [place], [place] [phone] Shannon Ordaz MD [address] [place], [place] [phone] TIA (transient ischemic attack) Social History Tobacco [...] documented as of this encounter Care Teams Side Gluer Relationship Specialty Start Date End Date Shannon Ordaz MD [address] [place] [address] PCP - General Family Medicine 06/11/19 Benjie Pineda FNP [address] [place] [address] Nurse Practitioner Family Medicine 05/23/23 documented as of this encounter
== END 2024-08-10 10:52 | disposition home or self-care (01) ==
PROVIDERS: PCP Internal Medicine; Visit Provider Internal Medicine Nephrology
DX: N18.31 Chronic kidney disease, stage 3a (principal); I10 Essential (primary) hypertension
CPT/HCPCS: 99214

== ENCOUNTER → 2024-08-10 10:33 | Outpatient (BNVA) | payer MEDICAID, SELFPAY | PROVIDERS: PCP Internal Medicine; Visit Provider Internal Medicine Nephrology | DX: I12.9 Hypertensive chronic kidney disease with stage 1 through stage 4 chronic kidney disease, or unspecified chronic kidney disease (principal); N18.31 Chronic kidney disease, stage 3a | CPT/HCPCS: 99212 ==

== ENCOUNTER 2024-08-28 10:24 | Outpatient (REF) | payer MEDICARE, MEDICAID, SELFPAY ==
[2024-08-28 11:24] LABS: Anion Gap 11 (12-20); Blood Urea Nitrogen 17 mg/dL (9-16); Calcium 9.4 mg/dL (8.4-10.2); Carbon Dioxide 28 mmol/L (22-29); Chloride 108 mmol/L (96-108); Estimated Glomerular Filt Rate 52; Glucose Random 94 mg/dL (60-115); Potassium 4.2 mmol/L (3.3-5.1); Sodium 143 mmol/L (135-145)
--- OUTSIDE RECORDS SUMMARY | 2024-08-28 12:38 | XMS_ITS | Encounter Summary ---
Author Organization [employer] Address [address] [place] [address] 7t [place] [address] Care Team Providers Care Offender Job Retention Specialist Name Role Phone Shannon Ordaz MD Primary Care Provider + Benjie Pineda Unavailable Unavailable Reason for Visit * Reason Onset Date Comments Appointment Request 08/26/2022 Encounter Details Date Type Department Care Team (Late st Contact Info) Description 08/26/2022 Telephone [facility] MEDICINE [address] [place], [place] [phone] Shannon Ordaz MD [address] [place], [place] [phone] Appointment Request Social History Tobacco Use Types [...] labs/htn RCL ) Please contact pt at [phone] documented in this encounter Plan of Treatment Upcoming Encounters Date Type Department Care Team (Late st Contact Info) Description 09/04/2024 10:45 AM EDT Office Visit [facility] MEDICINE [address] [place] [address] Shannon Ordaz MD [address] [place] [address] documented as of this encounter Visit Diagnoses Not on filedocumented in this encounter Additional Health Concerns Assessment Noted Time PHQ-9 Depression Total Score: 9 08/19/19 23 11:05 AM EST documented as of this encounter Care Teams Offender Job Retention Specialist Relationship Specialty Start Date End Date Shannon Ordaz MD [address] [place] [address] PCP - General Family Medicine 06/11/19 Benjie Pineda FNP [address] [place] [address] Nurse Practitioner Family Medicine 05/23/23 [facility] 04/25/24 05/03/24 documented as of this encounter
--- OUTSIDE RECORDS SUMMARY | 2024-08-28 12:38 | XMS_ITS | Continuity of Care Document ---
Demographics Address [address] [facility] [place] [address] Mobile Phone Home Phone Preferred Language es Marital Status Legally Alevism Affiliation Moravian (non-Cat holic, non-specific) Race Unknown Ethnic Group or Author Organization [facility] Address [address] [phone] Phone Care Team Providers Care Isotope Technician Name Role Phone Calin Dye DO Unavailable Unavailable Advance Directives Directive Yes / No Effective Date File Name No Information Encounters Encounter Description Practice Location Reason(s) For Visit Diagnoses Date Provider [facility], [address] [place] [address], [id number], [place] tel:[phone] [address] [place] [address] No Information 2018 Hardik Layton. [address] [place] [address], [id number], [place]. tel:[phone] Family History Family Member Type Diagnosis Age [...]
--- OUTSIDE RECORDS SUMMARY | 2024-08-28 12:38 | XMS_ITS | Encounter Summary ---
Author Organization [employer] Address [address] [facility] 7t [place] [address] Care Team Providers Care Implementation Analyst Name Role Phone Shannon Ordaz MD Primary Care Provider + Benjie Pineda Unavailable Unavailable Reason for Visit * Reason Onset Date Comments Hospital Follow-up 08/27/2024 Encounter Details Date Type Department Care Team ([facility] st Contact Info) Description 08/27/2024 Telephone [facility] MEDICINE [address] [place], [place] [phone] Shannon Ordaz MD [address] [place], [place] [phone] Hospital Follow-up Social History Tobacco Use Types [...] encounter Miscellaneous Notes * Telephone Encounter - Marc Apodaca - 08/27/2024 11:27 AM EST Tc from pt requesting a HDF appt. Hospital: [facility] Date of admission: 08/23/24 Discharge date: 08/24/24 Diagnosed: Kidney disease documented in this encounter Plan of Treatment Upcoming Encounters Date Type Department Care Team (Late st Contact Info) Description 09/04/2024 10:45 AM EDT Office Visit [facility] MEDICINE [address] [place] [phone] Shannon Ordaz MD [address] [place] [address] documented as of this encounter Goals Goal [...] documented as of this encounter Care Teams Implementation Analyst Relationship Specialty Start Date End Date Shannon Ordaz MD [address] [place] [address] PCP - General Family Medicine 06/11/19 Benjie Pineda FNP [address] [place] [address] Nurse Practitioner Family Medicine 05/23/23 documented as of this encounter
--- OUTSIDE RECORDS SUMMARY | 2024-08-28 12:38 | XMS_ITS | Encounter Summary ---
Author Organization [employer] Address [address] [facility] 7t [place] [address] Care Team Providers Care Drift Miner Name Role Phone Shannon Ordaz MD Primary Care Provider + Benjie Pineda Unavailable Unavailable Reason for Visit * Reason Comments Med Refill Encounter Details Date Type Department Care Team ([facility] st Contact Info) Description 08/30/2023 Refill [facility] [address] [place], [place] [phone] Shannon Ordaz MD [address] [place] [address] Social History Tobacco Use Types Packs/Day Years [...] as of this encounter Plan of Treatment Upcoming Encounters Date Type Department Care Team (Late st Contact Info) Description 09/04/2024 10:45 AM EDT Office Visit [facility] [address] [place] [address] Shannon Ordaz MD [address] [place] [address] documented as of this encounter Visit Diagnoses Not on filedocumented in this encounter Additional Health Concerns Assessment Noted Time PHQ-9 Depression Total Score: 2 08/02/19 24 9:41 AM EST documented as of this encounter Care Teams Drift Miner Relationship Specialty Start Date End Date Shannon Ordaz MD [address] [place] [address] PCP - General Family Medicine 06/11/19 Benjie Pineda FNP [address] [place] [address] Nurse Practitioner Family Medicine 05/23/23 [facility] 04/25/24 05/03/24 documented as of this encounter
--- OUTSIDE RECORDS SUMMARY | 2024-08-28 12:38 | XMS_ITS | Encounter Summary ---
Author Organization [employer] Address [address] [facility] [address] [place] [address] Care Team Providers Care Procurement Manager Name Role Phone Shannon Ordaz MD Primary Care Provider + Benjie Pineda Unavailable Unavailable Encounter Details Date Type Department Care Team (Late st Contact Info) Description 07/21/2023 Abstract [facility] [address] [place], [place] [phone] Shannon Ordaz MD [address], [place] [phone] Social History Tobacco Use Types Packs/Day Years [...] Description 09/04/2024 10:45 AM EDT Office Visit [facility] [address] [place], [place] [phone] Shannon Ordaz MD [address] [place] [phone] documented as of this encounter Procedures Procedure Name Priority Date/Time Associated Diagnosis Comments COLONOSCOPY Routine 07/19/2023 documented in this encounter Results * (ABNORMAL) Colonoscopy (07/19/2023) Colonoscopy Abnormal(A ) Normal [facility] Comment:TA Shannon Ordaz MD HEALTH MAINTENANCE Edite d Result - Final [facility] [address] [place] [address] [phone] documented in this encounter Visit Diagnoses Not on filedocumented in this encounter Additional Health Concerns Assessment Noted Time PHQ-9 Depression Total Score: 3 05/31/20 23 10:47 AM EST documented as of this encounter Care Teams Procurement Manager Relationship Specialty Start Date End Date Shannon Ordaz MD [address], [place] [phone] PCP - General Family Medicine 06/11/19 Benjie Pineda FNP [address] [place] [address] Nurse Practitioner Family Medicine 05/23/23 [facility] 04/25/24 05/03/24 documented as of this encounter
--- OUTSIDE RECORDS SUMMARY | 2024-08-28 12:38 | XMS_ITS | Clinical Summary ---
Author Organization [facility] Address [address] [place] [address] Phone Care Team Providers Care Pantograph I Engraver Name Role Phone Shannon Ordaz MD Primary Care Provider [phone]- [phone] Allergies No known active allergies Medications aspirin 81 mg EC tablet Take 1 tablet (81 mg total) by mouth 1 (one) time each day in the morning. 08/07/2024 Active atorvastatin (LIPITOR) 10 mg tablet Take 1 tablet (10 mg total) by mouth at bedtime. 04/19/2024 Active brimonidine (ALPHAGAN) 0.2 % ophthalmic solution 08/08/2024 Active buPROPion XL (WELLBUTRIN XL) 300 mg 24 hr tablet Take 1 tablet (300 mg total) by mouth 1 (one) time each day in the morning. Active carvediloL (COREG) 3.125 mg tablet Take 1 tablet (3.125 mg total) by mouth 2 (two) times a day with meals. 03/18/2024 Active docusate sodium (COLACE) 100 mg capsule Take 1 capsule (100 mg total) by mouth 2 (two) times a day if needed for constipation . Active gabapentin (NEURONTIN) 600 mg tablet Take 1 tablet (600 mg total) by mouth 2 (two) times a day. 09/24/2021 Active lisinopriL (PRINIVIL,ZESTR IL) 10 mg tablet Take 1 tablet (10 mg total) by mouth 1 (one) time each day in the morning. Active mirtazapine (REMERON) 30 mg tablet Take 2 tablets (60 mg total) by mouth at bedtime. at bedtime Active omeprazole (PriLOSEC) [address] capsule Take 1 capsule (20 mg total) by mouth 1 (one) time each day. 06/25/2024 Active risperiDONE (RisperDAL) 3 mg tablet Take 1 tablet (3 mg total) by mouth at bedtime. 12/28/2022 Active umeclidinium-vi lanteroL (ANORO ELLIPTA) 62.5-25 mcg/actuation inhaler Inhale 1 puff by mouth 1 (one) time each day. Active venlafaxine XR (EFFEXOR-XR) 150 mg 24 hr capsule Take 1 capsule (150 mg total) by mouth 1 (one) time each day in the morning. Active Active Problems No known active problems Resolved Problems Problem Noted Date Diagnosed Date Resolved Date ARF (acute renal failure) 08/22/2024 Encounters Date Type Department Care Team Description 08/22/2024 7:34 AM EST - 08/23/2024 1:19 PM EST Emergency [facility] [address] [place] [id number] Lito Redding MD Bukalo, Nermina, MD Bell, Alistair A, MD MUSHTAQ (acute kidney injury) ([facility]) (Primary Dx); Generalized weakness Discharge Disposition: Home or Self Care from Last 3 Months Social History Tobacco Use Types Packs/Day Years Used Date Smoking Tobacco: Never Smokeless Tobacco: Never Tobacco Cessation:Counseling Given: Not Answered Alcohol Use Standard Drinks/Week Comments Not Currently 0 (1 standard drink = 0.6 oz pur e alcohol) Comments No Sex and Gender Information Value Date Recorded Sex Assigned at Female 08/22/2024 9:25 AM EST Legal Sex Female 1:18 AM EST Gender Identity Female 05/01/2024 3:05 PM EST Sexual Orientation Straight 08/22/2024 9: 25 AM EST Obstetrics History Last Filed Vital Signs Vital Sign Reading Time Taken Comments Blood Pressure 97/64 08/23/2024 7:50 AM EST Pulse 90 08/23/2024 9:00 AM EST Temperature 36.4 ??C (97.5 ??F) 08/23/2024 7:50 AM ES T Respiratory Rate 17 08/23/2024 7:50 AM EST Oxygen Saturation 96% 08/23/2024 9:00 AM EST Inhaled Oxygen Concentration - - Weight 85.9 kg (189 lb 6.4 oz) 08/22/2024 9:37 P M EST Height 157.5 cm (5' 2 ) 08/22/2024 7:29 AM EST Body Mass Index 34.64 08/22/2024 7:29 AM EST Plan of Treatment Health Maintenance Due Date Last Done Comments Cervical Cancer Screening: Pap Smear 12/20/1979 RSV Immunization Patients 60+ Years Old (1 - Risk 60-74 years 1-dose series) 2018 Breast Cancer Screening 12/23/2023 12/22/2021 Cholesterol Screening (Lipid Panel) 01/17/2024 Colorectal Cancer Screening: Colonoscopy 01/17/2024 Hepatitis C Screening 01/17/2024 Medicare Annual Wellness Visit 01/17/2024 Osteoporosis Screening (Bone Density Screening) 01/17/2024 Social Influencers of Health Screening 01/17/2024 COVID-19 Vaccine ( season) 2024 11/25/2020, 10/29/2020 Depression Screening 11/14/2024 11/15/2023 Falls Risk Assessment 08/23/2025 08/23/2024 Hypertension/CHF/CAD Annual BMP Blood Test 08/23/2025 08/23/2024, 08/22/2024, 05/01/2024, Additional history exists DTaP,Tdap,and Td Vaccines (2 - Td or [...] Procedure Name Priority Date/Time Associated Diagnosis Comments ECG ANNOTATED 08/24/2024 CBC WITH AUTO DIFFERENTIAL Routine 08/23/2024 5:26 AM EST MAGNESIUM Routine 08/23/2024 5:26 AM EST CBC AND DIFFERENTIAL Routine 08/23/2024 5:26 AM EST BASIC METABOLIC PANEL Routine 08/23/2024 5:26 AM EST PURVIS URINE CULTURE TUBE STAT 08/22/19 9:38 AM EST URINALYSIS WITH REFLEX MICROSCOPIC AND CULTURE STAT 08/22/2024 9:38 AM EST URINALYSIS WITH REFLEX MICROSCOPIC AND CULTURE STAT 08/22/2024 9:38 AM EST RESPIRATORY VIRUS PANEL MOLECULAR STUDY STAT 08/22/2024 9:07 AM EST XR LUMBAR SPINE 2-3 VIEWS STAT 08/22/2024 9:06 AM EST XR CHEST 2 VIEWS STAT 08/22/2024 9:[address] HEAD WO CONTRAST STAT 08/22/2024 8 :40 AM EST ECG 12-LEAD STAT 08/22/2024 7:53 AM EST ALKALINE PHOSPHATASE STAT Add-on 08/22/2024 7:37 AM EST BILIRUBIN, TOTAL Add-On 08/22/2024 7:37 AM EST ALANINE AMINOTRANSFERASE STAT Add-on 08/22/2024 7:37 AM EST ASPARTATE AMINOTRANSFERASE STAT Add-on 08/22/2024 7:37 AM EST CBC WITH AUTO DIFFERENTIAL STAT 08/22/2024 7:37 AM EST MAGNESIUM STAT 08/22/2024 7:37 AM EST BASIC METABOLIC PANEL STAT 08/22/2024 7:37 AM EST CBC AND DIFFERENTIAL STAT 08/22/2024 7:37 AM EST from Last 3 Months Results * ECG-Annotated (08/24/2024) us Provider Onbase MD ECG ORDERABLES Final Result * (ABNORMAL) CBC auto differential (08/23/2024 5:26 AM EST) Only the most recent of2 resultswithin the time period is included. WBC 6.2 4.8 - 10.8 K/mcL LAB HEMETOLOGY METHOD 08/23/2024 6:39 AM [facility] RBC 3.80 3.80 - 4.80 M/mcL LAB HEMETOLOGY METHOD 08/23/2024 6:39 AM [facility] Hemoglobin 10.6(L) 11.5 - 16.0 g/dL LAB HEMETOLOGY METHOD 08/23/2024 6:39 AM [facility] Hematocrit 32.5(L) 35.0 - 47.0 % LAB HEMETOLOGY METHOD 08/23/2024 6:39 AM [facility] MCV 85.1 79.0 - 98.0 FL LAB HEMETOLOGY METHOD 08/23/2024 6:39 AM [facility] MCH 27.7 27.0 - 32.0 pcg LAB HEMETOLOGY METHOD 08/23/2024 6:39 AM [facility] MCHC 32.6 32.0 - 37.0 g/dL LAB HEMETOLOGY METHOD 08/23/2024 6:39 AM [facility] RDW 14.2 11.0 - 15.0 % LAB HEMETOLOGY METHOD 08/23/2024 6:39 AM [facility] Platelets 134 130 - 400 K/mcL LAB HEMETOLOGY METHOD 08/23/2024 6:39 AM [facility] MPV 14.0(H) 7.0 - 11.0 FL LAB HEMETOLOGY METHOD 08/23/2024 6:39 AM [facility] NRBC 0.0 <1.0 % LAB HEMETOLOGY METHOD 08/23/2024 6:39 AM [facility] NRBC Absolute 0.00 <0.10 K/mcL LAB HEMETOLOGY METHOD 08/23/2024 6:39 AM [facility] Neutrophils Relative 72.0 % LAB HEMETOLOGY METHOD 08/23/2024 6:39 AM [facility] Lymphocytes Relative 13.4 % LAB HEMETOLOGY METHOD 08/23/2024 6:39 AM [facility] Monocytes Relative 9.2 % LAB HEMETOLOGY METHOD 08/23/2024 6:39 AM [facility] Eosinophils Relative 4.8 % LAB HEMETOLOGY METHOD 08/23/2024 6:39 AM [facility] Basophils Relative 0.3 % LAB HEMETOLOGY METHOD 08/23/2024 6:39 AM [facility] Immature Granulocytes Relative 0.3 % LAB HEMETOLOGY METHOD 08/23/2024 6:39 AM EST [facility] Neutrophils Absolute 4.45 1.50 - 7.00 K/mcL LAB HEMETOLOGY METHOD 08/23/2024 6:39 AM EST [facility] Lymphocytes Absolute 0.83(L) 1.00 - 5.00 K/mcL LAB HEMETOLOGY METHOD 08/23/2024 6:39 AM EST [facility] Monocytes Absolute 0.57 0.20 - 1.00 K/mcL LAB HEMETOLOGY METHOD 08/23/2024 6:39 AM EST [facility] Eosinophils Absolute 0.30 0.00 - 0.50 K/mcL LAB HEMETOLOGY METHOD 08/23/2024 6:39 AM [facility] Basophils Absolute 0.02 0.00 - 0.20 K/mcL LAB HEMETOLOGY METHOD 08/23/2024 6:39 AM [facility] Immature Granulocytes Absolute 0.02 0.00 - 0.03 K/mcL LAB HEMETOLOGY METHOD 08/23/2024 6:39 AM [facility] Blood Venous blood specimen / Unknown Venipuncture / Unknown 08/23/2024 5:26 AM EST 08/23/2024 6:14 AM EST Katelin Reese SURVEY SUPERVISOR LAB BLOOD ORDERABLES Final Res ult [facility] [address] [place] [address], * Magnesium (08/23/2024 5:26 AM EST) Only the most recent of2 resultswithin the time period is included. Magnesium 2.4 1.9 - 2.6 mg/dL LAB CHEMISTRY METHOD 08/23/2024 7:21 AM EST [facility] Blood Venous blood specimen / Unknown Venipuncture / Unknown 08/23/2024 5:26 AM EST 08/23/2024 6:13 AM EST us Katelin Reese SURVEY SUPERVISOR LAB BLOOD ORDERABLES Final Res ult [facility] [address] [place] [address], [place] [phone] * (ABNORMAL) Basic metabolic panel (08/23/2024 5:26 AM EST) Only the most recent of2 resultswithin the time period is included. Sodium 138 133 - 145 mmol/L LAB CHEMISTRY METHOD 08/23/2024 7:27 AM [facility] Potassium 4.2 3.5 - 5.5 mmol/L LAB CHEMISTRY METHOD 08/23/2024 7:27 AM [facility] Chloride 107 96 - 110 mmol/L LAB CHEMISTRY METHOD 08/23/2024 7:27 AM [facility] CO2 26 21 - 32 mmol/L LAB CHEMISTRY METHOD 08/23/2024 7:27 AM [facility] Anion Gap 5 3 - 11 LAB CHEMISTRY METHOD 08/23/2024 7:27 AM [facility] Glucose 104(H) 70 - 100 mg/dL LAB CHEMISTRY METHOD 08/23/2024 7:27 AM [facility] BUN 27(H) 5 - 25 mg/dL LAB CHEMISTRY METHOD 08/23/2024 7:27 AM [facility] Creatinine 1.09 0.50 - 1.10 mg/dL LAB CHEMISTRY METHOD 08/23/2024 7:27 AM [facility] eGFR 56(L) >=60 mL/min/1. 73m2 LAB CHEMISTRY METHOD 08/23/2024 7:27 AM [facility] Comment:Calculation based on the??Chronic Kidney Disease Epidemiology Collaboration (CKD-EPI) equation refit??without adjustment for race. BUN/Creatinine Ratio 24.8 LAB CHEMISTRY METHOD 08/23/2024 7:27 AM [facility] Calcium 8.8 8.5 - 10.5 mg/dL LAB CHEMISTRY METHOD 08/23/2024 7:27 AM [facility] Blood Venous blood specimen / Unknown Venipuncture / Unknown 08/23/2024 5:26 AM EST 08/23/2024 6:13 AM EST us Elizabeth Templeton MD LAB BLOOD ORDERABLES Final Res ult [facility] [address] [place] [address], [place] [phone] * Urinalysis with reflex microscopic and culture (08/22/2024 9:38 AM EST) Specific [place] Urine 1.016 1.003 - 1.030 LAB URINALYSIS - AUTOMATED METHOD 08/22/2024 10:03 AM [facility] pH, Urine 5.5 5.0 - 8.0 pH LAB URINALYSIS - AUTOMATED METHOD 08/22/2024 10:03 AM [facility] Leukocytes, Urine Negative Negative LAB URINALYSIS - AUTOMATED METHOD 08/22/2024 10:03 AM [facility] Nitrite, Urine Negative Negative LAB URINALYSIS - AUTOMATED METHOD 08/22/2024 10:03 AM [facility] Protein, Urine Negative <=Trace mg/dL LAB URINALYSIS - AUTOMATED METHOD 08/22/2024 10:03 AM [facility] Glucose, Urine Negative Negative mg/dL LAB URINALYSIS - AUTOMATED METHOD 08/22/2024 10:03 AM [facility] Ketones, Urine Negative Negative mg/dL LAB URINALYSIS - AUTOMATED METHOD 08/22/2024 10:03 AM [facility] Urobilinogen, Urine 0.2 0.2 - 1.0 mg/dL LAB URINALYSIS - AUTOMATED METHOD 08/22/2024 10:03 AM [facility] Bilirubin, Urine Negative Negative LAB URINALYSIS - AUTOMATED METHOD 08/22/2024 10:03 AM [facility] Blood, Urine Negative Negative LAB URINALYSIS - AUTOMATED METHOD 08/22/2024 10:03 AM [facility] Urine Urine specimen obtained by clean catch procedure / Unknown Non-blood Collection / Unknown 08/22/2024 9:38 AM EST 08/22/2024 9:58 AM EST us Lito Redding MD LAB URINE ORDERABLES Final Resu lt Performing Organization Address City/[facility]/ZIP Co de Phone Number [facility] [address] [place] [address], [place] [phone] * Purvis urine culture tube (08/22/2024 9:38 AM EST) [facility] Extra Tube Hold for add-ons. 08/22/2024 11:01 AM [facility] Comment:Auto resulted. Urine Urine specimen obtained by clean catch procedure / Unknown Non-blood Collection / Unknown 08/22/2024 9:38 AM EST 08/22/2024 9:58 AM EST us Lito Redding MD LAB URINE ORDERABLES Final Resu lt [facility] [address] [place] [address], [place] [phone] * Respiratory virus panel molecular study (08/22/2024 9:07 AM EST) Pathologist [facility] Adenovirus Detection by PCR Not Detected Not Detected LAB MICROBIOLOGY METHOD 08/22/2024 10:56 AM [facility] Influenza A PCR Not Detected Not Detected LAB MICROBIOLOGY METHOD 08/22/2024 10:56 AM [facility] Influenza B PCR Not Detected Not Detected LAB MICROBIOLOGY METHOD 08/22/2024 10:56 AM [facility] Coronavirus 229E Not Detected Not Detected LAB MICROBIOLOGY METHOD 08/22/2024 10:56 AM [facility] Coronavirus HKU1 Not Detected Not Detected LAB MICROBIOLOGY METHOD 08/22/2024 10:56 AM [facility] Coronavirus OC43 Not Detected Not Detected LAB MICROBIOLOGY METHOD 08/22/2024 10:56 AM [facility] Coronavirus NL63 Not Detected Not Detected LAB MICROBIOLOGY METHOD 08/22/2024 10:56 AM [facility] Parainfluenza Virus 1 Not Detected Not Detected LAB MICROBIOLOGY METHOD 08/22/2024 10:56 AM [facility] Parainfluenza Virus 2 Not Detected Not Detected LAB MICROBIOLOGY METHOD 08/22/2024 10:56 AM [facility] Parainfluenza Virus 3 Not Detected Not Detected LAB MICROBIOLOGY METHOD 08/22/2024 10:56 AM [facility] Parainfluenza Virus 4 Not Detected Not Detected LAB MICROBIOLOGY METHOD 08/22/2024 10:56 AM [facility] RSV PCR Not Detected Not Detected LAB MICROBIOLOGY METHOD 08/22/2024 10:56 AM [facility] Human Metapneumovirus A and B Not Detected Not Detected LAB MICROBIOLOGY METHOD 08/22/2024 10:56 AM [facility] Rhinovirus/Entero virus Not Detected Not Detected LAB MICROBIOLOGY METHOD 08/22/2024 10:56 AM [facility] Bordetella pertussis Not Detected Not Detected LAB MICROBIOLOGY METHOD 08/22/2024 10:56 AM [facility] Bordetella parapertussis Not Detected Not Detected LAB MICROBIOLOGY METHOD 08/22/2024 10:56 AM [facility] Mycoplasma pneumo by PCR Not Detected Not Detected LAB MICROBIOLOGY METHOD 08/22/2024 10:56 AM EST [facility] Chlamydia pneumoniae Not Detected Not Detected LAB MICROBIOLOGY METHOD 08/22/2024 10:56 AM EST [facility] SARS COV-2 Not Detected Not Detected LAB MICROBIOLOGY METHOD 08/22/2024 10:56 AM EST [facility] Swab Both anterior nares / Unknown Non-blood Collection / Unknown 08/22/2024 9:07 AM EST 08/22/2024 9:52 AM EST Narrative [facility] - 08/22/2024 10:56 AM EST Testing was performed using the [employer] Respiratory Pathogen PCR Assay. All results must be correlated with the clinical findings. Results should not be used as the sole basis for diagnosis. False Negative results may occur from the presence of sequence variants in the region targeted by the assay or the presence of inhibitors. Results may be affected by concurrent antiviral/antimicrobial therapy or levels of organisms that are below the limit of detection. Ernst PURVIS LAB MICROBIOLOGY - GENERAL ORDER SMILEY Final Result [facility] [address] [place] [address], * XR Lumbar Spine 2-3 Views (08/22/2024 9:06 AM EST) Anatomical Region Laterality Modality Spine, L-spine Radiographic Crista ging 08/22/2024 9:11 AM EST Impressions 08/22/2024 9:13 AM EST FINDINGS/IMPRESSION: Unchanged, chronic fracture at L5 resulting in approximately 50% height loss centrally. ??Lumbar lordosis is preserved. ??No acute fractures. ??Lower lumbar predominant degenerative facet arthritis. ??Disc space heights are relatively preserved. -------- FINAL REPORT -------- Dictated By: ALY OLIVIA Dictated Date: 08/22/2024 09:11 ET Assigned Physician: ALY OLIVIA Reviewed and Electronically Signed By: ALY OLIVIA Signed Date: 08/22/2024 09:13 ET Workstation ID: [id number] Transcribed By: Self Edit Transcribed Date: 08/22/2024 09:11 ET Narrative 08/22/2024 9:13 AM EST XR LUMBAR SPINE 2-3 VIEWS INDICATION: ??Back pain TECHNIQUE: XR LUMBAR SPINE 2-3 VIEWS COMPARISON: 11/14/2023 radiograph and MRI 09/23/2023. Procedure Note Aly Olivia MD - 08/22/2024 XR LUMBAR SPINE 2-3 VIEWS INDICATION: Back pain TECHNIQUE: XR LUMBAR SPINE 2-3 VIEWS COMPARISON: 11/14/2023 radiograph and MRI 09/23/2023. IMPRESSION: FINDINGS/IMPRESSION: Unchanged, chronic fracture at L5 resulting inapproximately 50% height loss centrally. Lumbar lordosis is preserved.No acute fractures. Lower lumbar predominant degenerative facetarthritis. Disc space heights are relatively preserved. -------- FINAL REPORT -------- Dictated By: ALY OLIVIA Dictated Date: 08/22/2024 09:11 ET Assigned Physician: ALY OLIVIA Reviewed and Electronically Signed By: ALY OLIVIA Signed Date: 08/22/2024 09:13 ET Workstation ID: [id number] Transcribed By: Self Edit Transcribed Date: 08/22/2024 09:11 ET Lito Redding MD IMG XR PROCEDURES Final Result * XR Chest 2 Views (08/22/2024 9:06 AM EST) Anatomical Region Laterality Modality Body Radiographic Crista ging 08/22/2024 9:08 AM EST Impressions 08/22/2024 9:13 AM EST FINDINGS/IMPRESSION: Lungs are clear. ??No pleural effusion or pneumothorax. ??Cardiac silhouette is normal in size. ??Left rotator cuff calcific tendinosis. ??No acute fracture. ??Mild degenerative changes seen throughout the bones. -------- FINAL REPORT -------- Dictated By: ALY OLIVIA Dictated Date: 08/22/2024 09:08 ET Assigned Physician: ALY OLIVIA Reviewed and Electronically Signed By: ALY OLIVIA Signed Date: 08/22/2024 09:13 ET Workstation ID: [id number] Transcribed By: Self Edit Transcribed Date: 08/22/2024 09:08 ET Narrative 08/22/2024 9:13 AM EST XR CHEST 2 VIEWS INDICATION: ??Weakness, pain TECHNIQUE: XR CHEST 2 VIEWS COMPARISON: 04/23/2024 Procedure Note Aly Olivia MD - 08/22/2024 XR CHEST 2 VIEWS INDICATION: Weakness, pain TECHNIQUE: XR CHEST 2 VIEWS COMPARISON: 04/23/2024 IMPRESSION: FINDINGS/IMPRESSION: Lungs are clear. No pleural effusion orpneumothorax. Cardiac silhouette is normal in size. Left rotator cuffcalcific tendinosis. No acute fracture. Mild degenerative changes seenthroughout the bones. -------- FINAL REPORT -------- Dictated By: ALY OLIVIA Dictated Date: 08/22/2024 09:08 ET Assigned Physician: ALY OLIVIA Reviewed and Electronically Signed By: ALY OLIVIA Signed Date: 08/22/2024 09:13 ET Workstation ID: [id number] Transcribed By: Self Edit Transcribed Date: 08/22/2024 09:08 ET Ernst FARNSWORTH XR PROCEDURES Final Result * CT Head wo Contrast (08/22/2024 8:40 AM EST) Anatomical Region Laterality Modality Head and Neck Computed Tomogra phy 08/22/2024 8:50 AM EST Impressions 08/22/2024 8:58 AM EST No acute intracranial abnormality -------- FINAL REPORT -------- Dictated By: ALY OLIVIA Dictated Date: 08/22/2024 08:50 ET Assigned Physician: ALY OLIVIA Reviewed and Electronically Signed By: ALY OLIVIA Signed Date: 08/22/2024 08:58 ET Workstation ID: [id number] Transcribed By: Self Edit Transcribed Date: 08/22/2024 08:50 ET Narrative 08/22/2024 8:58 AM EST PROCEDURE: HEAD CT INDICATION: Lower extremity weakness, balance issues TECHNIQUE: CT of the head without intravenous contrast. Multiplanar reformats. The examination was performed utilizing dose reduction techniques. Total DLP 809 COMPARISON: ??04/24/2024 FINDINGS: ?? No acute territorial infarct, mass effect, or intracranial hemorrhage. Mild scattered periventricular and subcortical white matter hypodensities are most likely related to chronic small vessel ischemic change. Ventricles are stable in size. ??No hydrocephalus. Left lens implant. Scattered mucosal thickening seen throughout the sinuses with partial opacification of the left frontal and right sphenoid sinuses. ??Reactive new bone formation seen around the left frontal and right sphenoid sinuses indicative of chronic inflammation. ??Mastoid air cells are clear. No scalp hematoma or skull fracture. Procedure Note Aly Olivia MD - 08/22/2024 PROCEDURE: HEAD CT INDICATION: Lower extremity weakness, balance issues TECHNIQUE: CT of the head without intravenous contrast. Multiplanarreformats. The examination was performed utilizing dose reductiontechniques. Total DLP 809 COMPARISON: 04/24/2024 FINDINGS: No acute territorial infarct, mass effect, or intracranial hemorrhage. Mild scattered periventricular and subcortical white matter hypodensitiesare most likely related to chronic small vessel ischemic change. Ventricles are stable in size. No hydrocephalus. Left lens implant. Scattered mucosal thickening seen throughout the sinuses with partialopacification of the left frontal and right sphenoid sinuses. Reactivenew bone formation seen around the left frontal and right sphenoid sinusesindicative of chronic inflammation. Mastoid air cells are clear. No scalp hematoma or skull fracture. IMPRESSION: No acute intracranial abnormality -------- FINAL REPORT -------- Dictated By: ALY OLIVIA Dictated Date: 08/22/2024 08:50 ET Assigned Physician: ALY OLIVIA Reviewed and Electronically Signed By: ALY OLIVIA Signed Date: 08/22/2024 08:58 ET Workstation ID: [id number] Transcribed By: Self Edit Transcribed Date: 08/22/2024 08:50 ET Ernst PURVIS IMG CT PROCEDURES Final Result * ECG 12 lead (08/22/2024 7:53 AM EST) Ventricular Rate ECG 79 BPM GEMUSE Atrial Rate 79 BPM GEMUSE P-R Interval 178 ms GEMUSE QRS Duration 98 ms GEMUSE Q-T Interval 386 ms GEMUSE QTc 442 ms GEMUSE P Wave [place] 71 degrees GEMUSE R [place] 54 degrees GEMUSE T [place] 57 degrees GEMUSE ECG Interpretation Normal sinus rhythm When compared with ECG of 24-APR-2024 05:50, No significant change was found Confirmed by INNA JENSEN ([id number]) on 08/22/2024 8:02:38 PM GEMUSE 08/22/2024 7:53 AM EST 08/22/2024 8:02 PM EST us Lito Redding MD ECG ORDERABLES Final Result Performing Organization Address City/[facility]/ZIP Co de Phone Number GEMUSE * Alanine aminotransferase (08/22/2024 7:37 AM EST) ALT (SGPT) 20 10 - 60 unit/L LAB CHEMISTRY METHOD 08/22/2024 9:06 AM EST [facility] Blood Venous blood specimen / Unknown Venipuncture / Unknown 08/22/2024 7:37 AM EST 08/22/2024 8:33 AM EST us Ernst PURVIS LAB BLOOD ORDERABLES Final Resul t [facility] [address] [place] [address], [place] [phone] * Aspartate aminotransferase (08/22/2024 7:37 AM EST) AST (SGOT) 15 10 - 42 unit/L LAB CHEMISTRY METHOD 08/22/2024 9:06 AM EST [facility] Blood Venous blood specimen / Unknown Venipuncture / Unknown 08/22/2024 7:37 AM EST 08/22/2024 8:33 AM EST [facility] LAB BLOOD ORDERABLES Final Resul t Performing Organization Address [facility] de Phone Number [facility] [address] [place] [address], [place] [phone] * (ABNORMAL) Alkaline phosphatase (08/22/2024 7:37 AM EST) Alkaline Phosphatase 123(H) 42 - 121 unit/L LAB CHEMISTRY METHOD 08/22/2024 9:06 AM EST [facility] Blood Venous blood specimen / Unknown Venipuncture / Unknown 08/22/2024 7:37 AM EST 08/22/2024 8:33 AM EST [facility] LAB BLOOD ORDERABLES Final Resul t Performing Organization Address [facility] de Phone Number [facility] [address] [place] [address], [place] [phone] * Bilirubin, total (08/22/2024 7:37 AM EST) Total Bilirubin 0.2 0.0 - 1.4 mg/dL LAB CHEMISTRY METHOD 08/22/2024 9:06 AM EST [facility] Blood Venous blood specimen / Unknown Venipuncture / Unknown 08/22/2024 7:37 AM EST 08/22/2024 8:33 AM EST [facility] LAB BLOOD ORDERABLES Final Resul t Performing Organization Address [facility] Co de Phone Number [facility] [address] [place] [address], [place] [phone] from Last 3 Months Insurance MEDICA[place] MEDICARE Advance Directives Documents on File Type Date 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 Do not modify or discontinue any currently active code status orders. Care Teams Pantograph I Engraver Relationship Specialty Start Date End Date Shannon Ordaz MD [address] [place] [phone] PCP - General Internal Medicine 08/22/24
--- OUTSIDE RECORDS SUMMARY | 2024-08-28 12:38 | XMS_ITS | Encounter Summary ---
Author Organization [employer] Address [address] [place] [address] 7 [place] [address] Care Team Providers Care Product Test Specialist Name Role Phone Shannon Ordaz MD Primary Care Provider + Benjie Pineda Unavailable Unavailable Reason for Visit * Reason Onset Date Comments Referral 08/26/2022 Encounter Details Date Type Department Care Team (Late st Contact Info) Description 08/26/2022 Telephone [facility] [address] [place], [place] [phone] Shannon Ordaz MD [address] [place], [place] [phone] Referral Social History Tobacco Use Types Packs/Day [...] 3:08 PM EST TC returned to pt [phone] to inform pt provider has placed PT referral today. Pt verbalized understanding. RN will send message to speech language specialist to ensure referral gets processed as pt's appt is on 09/03/22. * Telephone Encounter - Alta Daniel - 08/30/2022 12:03 PM EST Tc from pt checking status on physical therapy referral . * Telephone Encounter - Gumaro Storm - 08/26/2022 4:28 PM EST Tc from pt returning call regarding missing information she didn't have for the referral needed forphysical therapy. Location: [address] [address] Phone #: [phone] Please contact pt at [phone] documented in this encounter Plan of Treatment Upcoming Encounters Date Type Department Care Team (Late st Contact Info) Description 09/04/2024 10:45 AM EDT Office Visit [facility] [address] [place] [address] Shannon Ordaz MD [address] [place] [address] documented as of this encounter Visit Diagnoses Not on filedocumented in this encounter Additional Health Concerns Assessment Noted Time PHQ-9 Depression Total Score: 9 08/19/19 23 11:05 AM EST documented as of this encounter Care Teams Product Test Specialist Relationship Specialty Start Date End Date Shannon Ordaz MD [address] [place] [phone] PCP - General Family Medicine 06/11/19 Benjie Pineda FNP [address] [place] [address] Nurse Practitioner Family Medicine 05/23/23 [facility] 04/25/24 05/03/24 documented as of this encounter
--- OUTSIDE RECORDS SUMMARY | 2024-08-28 12:38 | XMS_ITS | Encounter Summary ---
Author Organization [employer] Address [address] [place] [address] 7t [place] [address] Care Team Providers Care Data Processing Auditor Name Role Phone Shannon Ordaz MD Primary Care Provider + Benjie Pineda Unavailable Unavailable Reason for Visit * Reason Onset Date Comments FYI 03/22/2024 Encounter Details Date Type Department Care Team ([facility] st Contact Info) Description 03/22/2024 Telephone [facility]INE [address] [place], [place] [phone] Shannon Ordaz MD [address] [place], [place] [phone] FY Social History Tobacco Use Types Packs/Day [...] Peters - 03/22/2024 8:53 AM EDT Tc from [facility] at [facility] calling to inform the provider attempted to start services on 03/22 however patient refused due to having a Cardiology appt will re attempt on 03/23 to start services documented in this encounter Plan of Treatment Upcoming Encounters Date Type Department Care Team (Late st Contact Info) Description 09/04/2024 10:45 AM EDT Office Visit [facility] [address] [place] [address] Shannon Ordaz MD [address] [place] [address] documented as of this encounter Goals Goal Patient Goal Type Associated Problems Recent Progress Patient-Stated? Author Blood Pressure < 140/90 Blood Pressure 141/85(2024 9:27 AM EST) No Yanet Tse PharmD Record your blood pressure once per day Blood Pressure No Yanet Tse PharmD Take your medication every day Lifestyle No Yanet Tse PharmD documented as of this encounter Visit Diagnoses Not on filedocumented in this encounter Additional Health Concerns Assessment Noted Time PHQ-9 Depression Total Score: 2 11/15/19 24 11:12 AM EDT documented as of this encounter Care Teams Data Processing Auditor Relationship Specialty Start Date End Date Shannon Ordaz MD [address] [place] [address] PCP - General Family Medicine 06/11/19 Benjie Pineda FNP [address] [place] [address] Nurse Practitioner Family Medicine 05/23/23 [facility] 04/25/24 05/03/24 documented as of this encounter
--- OUTSIDE RECORDS SUMMARY | 2024-08-28 12:38 | XMS_ITS | Encounter Summary ---
Author Organization [employer] Address [address] [facility] 7t [place] [address] Care Team Providers Care Finance Admin Name Role Phone Shannon Ordaz MD Primary Care Provider + Benjie Pineda Unavailable Unavailable Reason for Visit * Reason Onset Date Comments Hospital Follow-up 03/22/2024 Encounter Details Date Type Department Care Team ([facility] st Contact Info) Description 03/22/[address] [facility] MEDICINE [address] [place], [place] [phone] Shannon Ordaz MD [address] [place], [place] [phone] Hospital Follow-up Social History Tobacco Use Types [...] encounter Miscellaneous Notes * Telephone Encounter - Alat Daniel - 03/22/2024 12:34 PM EDT Tc from pt requesting a HDF appt. Hospital: [facility] Date of admission: 03/17/24 Discharge date: 03/21/24 Diagnosed: diarrhea and rectal bleeding documented in this encounter Plan of Treatment Upcoming Encounters Date Type Department Care Team (Late st Contact Info) Description 09/04/2024 10:45 AM EDT Office Visit [facility] MEDICINE [address] [place] [phone] Shannon Ordaz MD [address] [place] [address] documented as of this encounter Goals Goal Patient Goal Type Associated Problems Recent Progress Patient-Stated? Author Blood Pressure < 140/90 Blood Pressure 141/85(2024 9:27 AM EST) No Evangelistas-Gambl e, Yanet, PharmD Record your blood pressure once per day Blood Pressure No Evangelistas-Gambl e, Yanet, PharmD Take your medication every day Lifestyle No [employer] Yanet, PharmD documented as of this encounter Visit Diagnoses Not on filedocumented in this encounter Additional Health Concerns Assessment Noted Time PHQ-9 Depression Total Score: 2 11/15/19 24 11:12 AM EDT documented as of this encounter Care Teams Finance Admin Relationship Specialty Start Date End Date Shannon Ordaz MD [address] [place] [address] PCP - General Family Medicine 06/11/19 Benjie Pineda FNP [address] [place] [address] Nurse Practitioner Family Medicine 05/23/23 [facility] 04/25/24 05/03/24 documented as of this encounter
--- OUTSIDE RECORDS SUMMARY | 2024-08-28 12:38 | XMS_ITS | Encounter Summary ---
Author Organization [employer] Address [address] [place] [address] 7t [place] [address] Care Team Providers Care Cutter And Edge Trimmer Name Role Phone Shannon Oradz MD Primary Care Provider + Benjie Pineda Unavailable Unavailable Encounter Details Date Type Department Care Team (Late st Contact Info) Description 08/30/2022 Orders Only [facility] MEDICINE [address] [place] [address] [phone] Radha Hubbard MD [address] [place] [address] [phone] Neuropathy involving both lower extremities (Primary Dx) [...] Description 09/04/2024 10:45 AM EDT Office Visit [facility] MEDICINE [address] [place] [address] [phone] Shannon Ordaz MD [address] [place], [place] [phone] documented as of this encounter Visit Diagnoses Diagnosis Neuropathy involving both lower extremities- Primary documented in this encounter Additional Health Concerns Assessment Noted Time PHQ-9 Depression Total Score: 9 08/19/ 23 11:05 AM EST documented as of this encounter Care Teams Cutter And Edge Trimmer Relationship Specialty Start Date End Date Shannon Ordaz MD [address] [place] [address] PCP - General Family Medicine 06/11/19 Benjie Pineda FNP [address] [place] [address] Nurse Practitioner Family Medicine 05/23/23 [facility] 04/25/24 05/03/24 documented as of this encounter
--- OUTSIDE RECORDS SUMMARY | 2024-08-28 12:39 | XMS_ITS | Encounter Summary ---
Author Organization [employer] Address [address] [facility] 7t [place] [address] Care Team Providers Care Trimming Department Blocker Name Role Phone Shannon Ordaz MD Primary Care Provider + Benjie Pineda Unavailable Unavailable Encounter Details Date Type Department Care Team (Late st Contact Info) Description 04/24/2024 Orders Only [facility] [address] [place], [place] [phone] ProviderYarelis MD Social History Tobacco Use Types [...] your housing situation today? I have adelfo alzo 04/12/[address] you li [...] 09/04/2024 10:45 AM EDT Office Visit [facility] MEDICINE [address] [place] [phone] Shannon Ordaz MD [address] [place] [address] documented as of this encounter Goals Goal [...] documented as of this encounter Care Teams Trimming Department Blocker Relationship Specialty Start Date End Date Shannon Ordaz MD [address] [place] [phone] PCP - General Family Medicine 06/11/19 Benjie Pineda FNP [address] [place] [address] Nurse Practitioner Family Medicine 05/23/23 [facility] 04/25/24 05/03/24 documented as of this encounter
--- OUTSIDE RECORDS SUMMARY | 2024-08-28 12:39 | XMS_ITS | Encounter Summary ---
Author Organization [employer] Address [address] [facility] 7t [place] [address] Care Team Providers Care Pourer Bull Ladle Name Role Phone Shannon Ordaz MD Primary Care Provider + Benjie Pineda Unavailable Unavailable Encounter Details Date Type Department Care Team (Late st Contact Info) Description 11/23/2023 Orders Only [facility] [address] [place] [address] ProviderYarelis MD Social History Tobacco Use Types [...] Description 09/04/2024 10:45 AM EDT Office Visit [facility] [address] [place] [phone] Shannon Ordaz MD [address] [place] [phone] documented as of this encounter Procedures Procedure Name Priority Date/Time Associated Diagnosis Comments HM COLONOSCOPY Routine 05/09/2018 7:30 AM EST documented in this encounter Results * Hm Colonoscopy (05/09/2018 7:30 AM EST) Historical Provider HEALTH MAINTENANCE Final Result documented in this encounter Visit Diagnoses Not on filedocumented in this encounter Additional Health Concerns Assessment Noted Time PHQ-9 Depression Total Score: 2 11/15/19 24 11:12 AM EDT documented as of this encounter Care Teams Pourer Bull Ladle Relationship Specialty Start Date End Date Shannon Ordaz MD [address] [place] [phone] PCP - General Family Medicine 06/11/19 Benjie Pineda FNP [address] [place] [phone] Nurse Practitioner Family Medicine 05/23/23 [facility] 04/25/24 05/03/24 documented as of this encounter
--- OUTSIDE RECORDS SUMMARY | 2024-08-28 12:39 | XMS_ITS | Encounter Summary ---
Author Organization [employer] Address [address] [facility] 7t [place] [address] Care Team Providers Care Senior Administrative Associate Name Role Phone Shannon Ordaz MD Primary Care Provider + Benjie Pineda Unavailable Unavailable Reason for Visit * Reason Onset Date Comments Call Back Request 08/24/2024 Appointment Request 08/24/2024 Lab Orders 08/24/2024 Encounter Details Date Type Department Care Team ([facility] st Contact Info) Description 08/24/2024 Telephone [facility] [address] [place], [place] [phone] Shannon Ordaz MD [address] [place], [place] [phone] Call Back Request; Appointment Request; Lab Orders Social History Tobacco Use Types Packs/Day Years [...] encounter Miscellaneous Notes * Telephone Encounter - Larissa Cross RN - 08/24/2024 2:50 PM EST Pt at [facility] ED 08/22/24 for MUSHTAQ, recommended follow up BMP within 1 week (pt left ED 08/23/24). Ordered pended to PCP. Telephone call to pt per provider request to status check. No answer, left voicemail with [facility] lang interpreter Nathanael #[id number] asking for call back. Will task to call again. Returned call to JUICE Gutierrez who was asking if Dr Ordaz willing to sign papers for home physical therapy, advised her PCP is aware pt recently in ED and sent home with services. No evaluation performed yet, [facility] to fax over any orders needed. No further questions. * Telephone Encounter - Joseph De Souza - 08/24/2024 2:22 PM EST Tc from Brenda with [facility] requesting a call back just to verify if pcp is willing to sign Physician orders. Contact Brenda at [phone] documented in this encounter Plan of Treatment Upcoming Encounters Date Type Department Care Team (Late st Contact Info) Description 09/04/2024 10:45 AM EDT Office Visit [facility] [address] [place] [address] Shannon Ordaz MD [address] [place] [address] documented as of this encounter Goals Goal Patient Goal Type Associated Problems Recent Progress Patient-Stated? Author Blood Pressure < 140/90 Blood Pressure 141/85(2024 9:27 AM EST) No Evangelistas-Yanet Lambert, PharmD Record your blood pressure once per day Blood Pressure No EvangelistasYanet Moya PharmD Take your medication every day Lifestyle No Evangelistas-Yanet Lambert PharmD documented as of this encounter Procedures Procedure Name Priority Date/Time Associated Diagnosis Comments BASIC METABOLIC PANEL Routine 08/28/2024 10:48 AM EST MUSHTAQ (acute kidney injury) ([facility]) documented in this encounter Results * (ABNORMAL) Basic Metabolic Panel (08/28/2024 10:48 AM EST) Sodium 143 135 - 145 mmol/L [facility] Potassium 4.2 3.3 - 5.1 mmol/L [facility] Chloride 108 96 - 108 mmol/L [facility] Carbon Dioxide 28 22 - 29 mmol/L [facility] Anion Gap 11(L) 12 - 20 [facility] Urea Nitrogen (BUN) 17(H) 9 - 16 mg/dL [facility] Creatinine, Serum 1.06 0.5 - 1.4 mg/dL [facility] Estimated Glomerular Filt Rate 52 [facility] Comment:Chronic Kidney Disea se: Estimated GFR < 60 mL/min/[id number] Kidney Disease: Estimated GFR < 15 mL/min/1.73m2 Glucose 94 60 - 115 mg/dL [facility] Calcium 9.4 8.4 - 10.2 mg/dL [facility] Blood Venous blood specimen / Unknown 08/28/2024 10:48 AM EST 08/28/2024 10:48 AM EST Shannon Ordaz MD LAB BLOOD ORDERABLES Fin al Result [facility] [address] [place] [address] [phone] documented in this encounter Visit Diagnoses Diagnosis MUSHTAQ (acute kidney injury) (CMS/HCC) documented in this encounter Additional Health Concerns Assessment Noted Time PHQ-9 Depression Total Score: 2 11/15/19 24 11:12 AM EDT documented as of this encounter Care Teams Senior Administrative Associate Relationship Specialty Start Date End Date Shannon Ordaz MD [address] [place] [address] PCP - General Family Medicine 06/11/19 Benjie Pineda FNP [address] [place] [address] Nurse Practitioner Family Medicine 05/23/23 documented as of this encounter
--- OUTSIDE RECORDS SUMMARY | 2024-08-28 12:39 | XMS_ITS | Encounter Summary ---
Author Organization [employer] Address [address] [place] [address] 7t [place] [address] Care Team Providers Care Director E Learning Name Role Phone Shannon Ordaz MD Primary Care Provider + Benjie Pineda Unavailable Unavailable Reason for Visit * Reason Onset Date Comments Medication Question 11/16/2022 Encounter Details Date Type Department Care Team ([facility] st Contact Info) Description 11/16/2022 Telephone [facility] [address] [place], [place] [phone] Shannon Ordaz MD [address] [place], [place] [phone] Medication Question Social History Tobacco Use Types [...] were discussed however meditech reviewed and pt.'s demurrage clerk prescribes them. * Telephone Encounter - Alta [...] 10:45 AM EDT Office Visit [facility] [address] [place] [address] Shannon Ordaz MD [address] [place] [address] documented as of this encounter Visit Diagnoses Not on filedocumented in this encounter Additional Health Concerns Assessment Noted Time PHQ-9 Depression Total Score: 12 023 11:08 AM EDT documented as of this encounter Care Teams Director E Learning Relationship Specialty Start Date End Date Shannon Ordaz MD [address] [place] [address] PCP - General Family Medicine 06/11/19 Benjie Pineda FNP [address] [place] [phone] Nurse Practitioner Family Medicine 05/23/23 [facility] 04/25/24 05/03/24 documented as of this encounter
--- OUTSIDE RECORDS SUMMARY | 2024-08-28 12:39 | XMS_ITS | Clinical Summary ---
Author Organization [employer] Address [address] [place] [address] 7[address] [place] [address] Care Team Providers Care Sheet Tester Name Role Phone Shannon Ordaz MD Primary [...] DAY AT THE SAME TIME 023 Active bumetanide (Bumex) 1 MG tablet [...] wheezing or shortness of breath. 18 g 024 Active lisinopril 10 MG tabletIndications :Hypertensive emergency TAKE 1 TABLET BY MOUTH EVERY MORNING 90 tablet 024 Active docusate sodium (Colace) 100 MG capsuleIndication s:Slow transit constipation TAKE 1 CAPSULE BY MOUTH TWICE DAILY IN THE MORNING AND AT BEDTIME NEEDED FOR CONSTIPATION 180 capsule 024 Active carvedilol (Coreg) 3.125 MG tablet [...] by MD. 30 patch 1 024 Active atorvastatin (Lipitor) 10 MG tabletIndications :Mixed [...] AND AT BEDTIME 60 tablet 025 Active omeprazole (PriLOSEC) [address] capsule Take 1 capsule by mouth Once per day. 024 Active ketorolac (Acular) 0.5 % ophthalmic solution INSTILL 1 DROP AFFECTED EYE(S) THREE TIMES DAILY STARTING 2 DAYS BEFORE SURGERY, CONTINUE DIRECTED 025 Active brimonidine (AlphaGAN) 0.2 % ophthalmic solution Administer 1 drop into the right eye 3 times daily. 025 Active famotidine (Pepcid) 40 MG tablet Take 40 mg by mouth at bedtime. 023 2024 Discontinued(M ed list cleanup (will not trigger notification to Pharmacy)) aspirin 81 MG EC tabletIndications :TIA (transient ischemic attack) Take 1 tablet (81 mg) by mouth in the morning. 30 tablet 11 023 2024 Discontinued pantoprazole (ProtoNix) 40 MG EC tabletIndications :Cárdenas's esophagus with dysplasia TAKE 1 TABLET BY MOUTH TWICE DAILY IN THE MORNING AND IN THE EVENING 180 tablet 3 025 2024 Discontinued(M ed list cleanup (will not trigger notification to Pharmacy)) gabapentin (Neurontin) 600 MG tabletIndications :Anxiety and [...] me in 2-3w. Order labs to ro edouardtes imbalance Advised to use cane for ambulation, use shower chair and bedside commode to prevent accidents at home. She has a FILM VAULT SUPERVISOR to help with ADLs, I told patient to avoid any activity that can put her at risk , that otherwise is to be assisted by FILM VAULT SUPERVISOR . Anemia 02/13/2024 History of colon polyps [...] stable. 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 06/02/2023 08/01/2023 Assessment [...] Encounters Date Type Department Care Team Description 08/27/2024 Telephone [facility] [address] [place] [phone] Shannon Ordaz MD Care Coordination 08/27/2024 Patient Outreach [facility] [address] [place] [phone] Shannon Ordaz MD Transition Of Care (Tcm) (HDF- Scheduled) 08/27/2024 Telephone [facility] [address] [place] [address] [phone] Shannon Ordaz MD Hospital Follow-up 08/24/2024 Telephone [facility] [address] [place] [phone] Shannon Ordaz MD Call Back Request; Appointment Request; Lab Orders 08/10/2024 Refill [facility] [address] [place] [address] [place] [address] Shannon Ordaz MD Anxiety and depression 08/07/2024 Orders Only GENERIC EXTERNAL DATA DEPARTMENT Provider, Generic External Data 08/07/2024 Refill [facility] [address] [place] [address] Shannon Ordaz MD TIA (transient ischemic attack) 07/25/2024 9:00 AM EST Office Visit [facility] [address] [place] [address] Len Bynum MD Pre-op evaluation (Primary Dx) 07/11/2024 Refill [facility] [address] [place] [address] Shannon Ordaz MD Mixed hyperlipidemia; Anxiety and depression 07/08/2024 Refill [facility] [address] [place] [address] Shannon Ordaz MD Cárdenas's esophagus with dysplasia 06/21/2024 Telephone [facility] [address] [place] [address] Shannon Ordaz MD Pre-op Exam 06/18/2024 Refill [facility] [address] [place] [address] Shannon Ordaz MD Anxiety and depression 06/13/2024 Refill [facility] [address] [place] [address] Shannon Ordaz MD Primary hypertension 06/06/2024 Telephone [facility] [address] [place] [address] Raina Hathaway, MCKAYLA from Last 3 Months Immunizations Name Administration [...] 07/25/2024 9:12 AM EST Plan of Treatment Upcoming Encounters Date Type Department Care Team (Late st Contact Info) Description 09/04/2024 10:45 AM EDT Office Visit [facility] [address] [place], [place] [phone] Shannon Ordaz MD [address] [place], [place] [phone] Health Maintenance Due Date Last Done Comments [...] Pressure 141/85(2024 9:27 AM EST) No Yanet Tse, PharmD Record your blood pressure once per day Blood Pressure No Yanet Tse PharmD Take your medication every day Lifestyle No Yanet Tse PharmD Procedures Procedure Name Priority Date/Time Associated Diagnosis Comments BASIC METABOLIC PANEL Routine 08/28/2024 10:48 AM EST MUSHTAQ (acute kidney injury) (CMS/HCC) CALCIUM Routine 08/07/2024 1:21 PM EST CREATININE, SERUM Routine 08/07/2024 1:2 1 PM EST UREA NITROGEN (BUN) Routine 08/07/2024 1 :21 PM EST ELECTROLYTE PANEL Routine 08/07/2024 1:2 1 PM EST HM COLONOSCOPY Routine 07/19/2023 LIPID PANEL WITH REFLEX TO DIRECT LDL Routine 06/02/2023 11:15 AM EST Elevated blood-pressure reading without diagnosis of hypertension TIA (transient ischemic attack) MAMMOGRAM GENERIC Routine 12/22/2021 12: 08 PM EDT ZZZ HISTORICAL HPV MRNA E6/E7 Routine 05/17/2018 9:40 AM EST from Last 3 Months or Most Recently Relevant to Health Maintenance Results * (ABNORMAL) Basic Metabolic Panel (08/28/2024 10:48 AM EST) Sodium 143 135 - 145 mmol/L [facility] Potassium 4.2 3.3 - 5.1 mmol/L [facility] Chloride 108 96 - 108 mmol/L [facility] Carbon Dioxide 28 22 - 29 mmol/L [facility] Anion Gap 11(L) 12 - 20 [facility] Urea Nitrogen (BUN) 17(H) 9 - 16 mg/dL [facility] Creatinine, Serum 1.06 0.5 - 1.4 mg/dL [facility] Estimated Glomerular Filt Rate 52 [facility] Comment:Chronic Kidney Disea se: Estimated GFR < 60 mL/min/1.33e3Tnckrz Kidney Disease: Estimated GFR < 15 mL/min/1.73m2 Glucose 94 60 - 115 mg/dL [facility] Calcium 9.4 8.4 - 10.2 mg/dL [facility] Blood Venous blood specimen / Unknown 08/28/2024 10:48 AM EST 08/28/2024 10:48 AM EST us Shannon Ordaz MD LAB BLOOD ORDERABLES Fin al Result [facility] [address] [place] [address] [phone] * Creatinine, Serum (08/07/2024 1:21 PM EST) Creatinine, Serum 1.13 0.5 - 1.4 mg/dL [facility] Estimated Glomerular Filt Rate 48 [facility] Comment:Chronic Kidney Disea se: Estimated GFR < 60 mL/min/1.12o9Stmxel Kidney Disease: Estimated GFR < 15 mL/min/1.73m2 08/07/2024 1:2 1 PM EST 08/07/2024 1:21 PM EST us Generic External Data Provider LAB BLOOD ORDERAB LES Final Result Performing Organization Address [facility]/ZIP Co de Phone Number [facility] [address] [place] [phone] * BUN (Blood Urea Nitrogen) (08/07/2024 1:21 PM EST) Urea Nitrogen (BUN) 15 9 - 16 mg/dL [facility] 08/07/2024 1:21 PM EST 08/07/2024 1:21 PM EST Generic External Data Provider LAB BLOOD ORDERAB LES Final Result Performing Organization Address [facility] Co de Phone Number [facility] [address] [place] [phone] * Calcium (08/07/2024 1:21 PM EST) Calcium 9.1 8.4 - 10.2 mg/dL [facility] 08/07/2024 1:21 PM EST 08/07/2024 1:21 PM EST Generic External Data Provider LAB BLOOD ORDERAB LES Final Result Performing Organization Address [facility] Co de Phone Number [facility] [address] [place] [phone] * Electrolyte Panel (08/07/2024 1:21 PM EST) Sodium 143 135 - 145 mmol/L [facility] Potassium 4.5 3.3 - 5.1 mmol/L [facility] Chloride 107 96 - 108 mmol/L [facility] Carbon Dioxide 29 22 - 29 mmol/L [facility] Anion Gap 12 12 - 20 [facility] 08/07/2024 1:21 PM EST 08/07/2024 1:21 PM EST Generic External Data Provider LAB BLOOD ORDERAB LES Final Result Performing Organization Address [facility] Co de Phone Number [facility] [address] [place] [address] [phone] * (ABNORMAL) Hm Colonoscopy (07/19/2023) Pathologist [facility] Colonoscopy Abnormal(A ) Normal [facility] Comment:TA Shannon Ordaz MD HEALTH MAINTENANCE Edite d Result - Final Performing Organization Address [facility] Co de Phone Number [facility] [address] [place] [phone] * Lipid Panel with Reflex to Direct LDL (06/02/2023 11:15 AM EST) Pathologist [facility] Triglycerides 80 <150 mg/dL [facility] Comment:Desirable Triglyceri de: less than 150 mg/dLBorderline High Triglyceride 150-199 mg/dLHigh Triglyceride: 200-499 mg/dLVery High Triglyceride: greater than or equal to 5OO mg/dL Cholesterol 149 <200 mg/dL [facility] Comment:Desirable Cholestero l: less than 200 mg/dLBorderline High Cholesterol: 200-239 mg/dLHigh Cholesterol: greater than 239 mg/dL LDL Cholesterol Calculated 76 <100 mg/dL [facility] Comment:Desirable LDL: less than 100 mg/dLNear Optimal/Above Optimal LDL: 110- 129 mg/dLBorderline High LDL: 130-159 mg/dLHigh LDL: 160-189 mg/dLVery High LDL: greater than or equal to 190 mg/dL HDL Cholesterol 57 >40 mg/dL [facility] Comment:Desirable HDL: great er than 40 mg/dL Note: This HDL assay may give artificially low results in patients with liver disease. Blood 06/02/2023 11:1 5 AM EST 06/02/2023 1:19 PM EST Shannon Ordaz MD LAB BLOOD ORDERABLES Fin al Result [facility] [address] [place] [phone] * Mammography Report 1 (12/22/2021 12:08 PM EDT) Anatomical Region Laterality Modality Breast Bilateral Mammography 12/22/2021 12:0 8 PM EDT Narrative 12/30/2021 12:21 PM EDT Refer to the Notes tab for result details [facility] Procedure: Mammography Report 1 Procedure Note ProviderYarelis MD - 09/19/2022 Refer to the Notes tab for result details [facility] Procedure: Mammography Report 1 Shannon Ordaz MD IMG BI PROCEDURES Final Result * HPV mRNA E6/E7 (05/17/2018 9:40 AM EST) HPV mRNA E6/E7 Not Detected NOT DETECTED [facility] Comment: This test was performed using the APTIMA(R) HPV Assay ([employer] This assay detects E6/E7 viral messenger RNA (mRNA) from 14 high-risk HPV types (16,18,31,33,35,39,45,51, 52,56,58,59,66,68). For additional information please refer to: http://education.Baobab/faq/YIQ827n4 (This link is being provided for informational/ educational purposes only.) The analytical performance characteristics of this assay have been determined by [employer] [place], [place]. The modifications have not been cleared or approved by the FDA. This assay has been validated pursuant to the CLIA regulations and is used for clinical purposes. Test Performed by [facility], [address] [place] [address] Kraig Gonzalez M.D., Ph.D., Director of Laboratories , [place] [id number] Please note: ??Effective 03/08/2016, HPV testing will be performed using [employer]'s APTIMA test which targets mRNA. Detecting mRNA instead of DNA, as in older methods, offers significant improvements in specificity. 05/17/2018 9:40 AM EST Elsa Conner CNM HISTORICAL/NON ORDERABLE LABS Final Result [facility] Formerly [facility], [facility] [address]where [address] from Last 3 Months or Most Recently Relevant to Health Maintenance [place] [address] [place] [address] STANDARD MEDICARE Care Teams Sheet Tester Relationship Specialty Start Date End Date Shannon Ordaz MD [address] [place] [address] PCP - General Family Medicine 06/11/19 Benjie Pineda FNP [address] [place] [address] Nurse Practitioner Family Medicine 05/23/23
--- OUTSIDE RECORDS SUMMARY | 2024-08-28 12:39 | XMS_ITS | Encounter Summary ---
Author Organization [employer] Address [address] [facility] [address] [place] [address] Care Team Providers Care Deep Fat Cook Fry Name Role Phone Shannon Ordaz MD Primary [...] Description 09/04/2024 10:45 AM EDT Office Visit [facility] [address] [place], [place] [phone] Shannon Ordaz MD [address] [place], [place] [phone] documented as of this encounter Goals Goal Patient Goal Type Associated Problems Recent Progress Patient-Stated? Author Blood Pressure < 140/90 Blood Pressure 141/85(2024 9:27 AM EST) No Evangel[employer]-Yanet Lambert, PharmD Record your blood pressure once per day Blood Pressure No Tristen-Meeta Lambertsa, PharmD Take your medication every day Lifestyle No Evangelistas-Juan pop, Yanet, PharmD documented as of this encounter Procedures Procedure Name Priority Date/Time Associated Diagnosis Comments CREATININE, SERUM Routine 08/07/2024 1:2 1 PM EST UREA NITROGEN (BUN) Routine 08/07/2024 1 :21 PM EST CALCIUM Routine 08/07/2024 1:21 PM EST ELECTROLYTE PANEL Routine 08/07/2024 1:2 1 PM EST documented in this encounter Results * Calcium (08/07/2024 1:21 PM EST) Calcium 9.1 8.4 - 10.2 mg/dL [facility] 08/07/2024 1:21 PM EST 08/07/2024 1:21 PM EST us Generic External Data Provider LAB BLOOD ORDERAB LES Final Result Performing Organization Address [facility] de Phone Number [facility] [address] [place] [phone] * Creatinine, Serum (08/07/2024 1:21 PM EST) Creatinine, Serum 1.13 0.5 - 1.4 mg/dL [facility] Estimated Glomerular Filt Rate 48 [facility] Comment:Chronic Kidney Disea se: Estimated GFR < 60 mL/min/1.08b9Iouxkg Kidney Disease: Estimated GFR < 15 mL/min/1.73m2 08/07/2024 1:21 PM EST 08/07/2024 1:21 PM EST us Generic External Data Provider LAB BLOOD ORDERAB LES Final Result Performing Organization Address [facility] de Phone Number [facility] [address] [place] [phone] * BUN (Blood Urea Nitrogen) (08/07/2024 1:21 PM EST) Urea Nitrogen (BUN) 15 9 - 16 mg/dL [facility] 08/07/2024 1:21 PM EST 08/07/2024 1:21 PM EST Generic External Data Provider LAB BLOOD ORDERAB LES Final Result Performing Organization Address [facility] de Phone Number [facility] [address] [place] [phone] * Electrolyte Panel (08/07/2024 1:21 PM EST) Sodium 143 135 - 145 mmol/L [facility] Potassium 4.5 3.3 - 5.1 mmol/L [facility] Chloride 107 96 - 108 mmol/L [facility] Carbon Dioxide 29 22 - 29 mmol/L [facility] Anion Gap 12 12 - 20 [facility] 08/07/2024 1:21 PM EST 08/07/2024 1:21 PM EST us Generic External Data Provider LAB BLOOD ORDERAB LES Final Result Performing Organization Address City/State/[facility] Co de Phone Number [facility] [address] [place] [phone] documented in this encounter Visit Diagnoses Not on filedocumented in this encounter Additional Health Concerns Assessment Noted Time PHQ-9 Depression Total Score: 2 11/15/19 24 11:12 AM EDT documented as of this encounter Care Teams Deep Fat Cook Fry Relationship Specialty Start Date End Date Shannon Ordaz MD [address] [place] [address] PCP - General Family Medicine 06/11/19 Benjie Pineda FNP [address] [place] [address] Nurse Practitioner Family Medicine 05/23/23 documented as of this encounter
--- OUTSIDE RECORDS SUMMARY | 2024-08-28 12:39 | XMS_ITS | Encounter Summary ---
Author Organization [employer] Address [address] [place] [address] 7t [place] [address] Care Team Providers Care Financial Consultant Name Role Phone Shannon Ordaz MD Primary Care Provider + Benjie Pineda Unavailable Unavailable Encounter Details Date Type Department Care Team (Late st Contact Info) Description 03/01/2023 Abstract [facility] [address] [place] [address] [phone] Shannon Ordaz MD [address] [place] [address] [phone] Social History Tobacco Use Types Packs/Day Years [...] Description 09/04/2024 10:45 AM EDT Office Visit [facility] [address] [place] [address] [phone] Shannon Ordaz MD [address] [place] [address] [phone] documented as of this encounter Visit Diagnoses Not on filedocumented in this encounter Additional Health Concerns Assessment Noted Time PHQ-9 Depression Total Score: 8 02/02/20 23 11:15 AM EDT documented as of this encounter Care Teams Financial Consultant Relationship Specialty Start Date End Date Shannon Ordaz MD [address] [place] [address] PCP - General Family Medicine 06/11/19 Benjie Pineda FNP [address] [place] [phone] Nurse Practitioner Family Medicine 05/23/23 [employer] [facility] 04/25/24 05/03/24 documented as of this encounter
--- OUTSIDE RECORDS SUMMARY | 2024-08-28 12:39 | XMS_ITS | Encounter Summary ---
Author Organization [employer] Address [address] [place] [address] 7t [place] [address] Care Team Providers Care Nurse Instructor Name Role Phone Shannon Ordaz MD Primary Care Provider + Benjie Pineda Unavailable Unavailable Reason for Visit * Reason Onset Date Comments Care Coordination 08/27/2024 Encounter Details Date Type Department Care Team ([facility] st Contact Info) Description 08/27/2024 Telephone [facility] [address] [place], [place] [phone] Shannon Ordaz MD [address] [place], [place] [phone] Care Coordination Social History Tobacco Use Types Packs/Day Years [...] Telephone Encounter - Sujey Hicks RN - 08/27/2024 12:34 PM EST TC placed to patient [phone] in regards to below message. Patient reports she is supposed to be receiving PT in the home however she is not sure which agency her in home PT will be from. Patientreports they called her son to schedule the visit however she is not sure what time/day they will be coming. Patient confirms she has an appointment scheduled with her field tech in approx 3 months, RN advised patient to call nephrology office to inform of hospital visit and schedule a sooner appointment. Patient confirms she has field tech phone number. Patient reports her weakness continueshowever it is improving. Patient confirms she is taking medications as Rx'd. Patient advised she needs to repeat BW (BMP) per the hospital in 1 week. Patient reports she will come to the lab tomorrowto repeat the BW. Patient reminded of upcoming HDF appointment. Patient did not have any further questions/concerns. Patient to be contact with BW results once available. Patient to f/u PRN. ----- Message from Shannon Ordaz MD sent at 08/24/2024 1:29 PM EST ----- Patient hospitalized at [facility] on 08/22/2024 due to weakness/MUSHTAQ/dehydration secondary to UTI, she required IV fluids and was discharged home on 08/23. Please call patient and follow-up on health status, see if she needs to follow- up with us or she rather needs further PT evaluation for general weakness, gait disturbance and low back pain. If she does not need to call for follow-up soon, ask her to get a BMP done next week. documented in this encounter Plan of Treatment Upcoming Encounters Date Type Department Care Team (Late st Contact Info) Description 09/04/2024 10:45 AM EDT Office Visit [facility] [address] [place] [phone] Shannon Ordaz MD [address] [place] [phone] documented as of this encounter Goals Goal [...] documented as of this encounter Care Teams Nurse Instructor Relationship Specialty Start Date End Date Shannon Ordaz MD [address] [place] [phone] PCP - General Family Medicine 06/11/19 Benjie Pineda FNP [address] [place] [phone] Nurse Practitioner Family Medicine 05/23/23 documented as of this encounter
--- OUTSIDE RECORDS SUMMARY | 2024-08-28 12:39 | XMS_ITS | Encounter Summary ---
Author Organization [employer] Address [address] [place] [address] 7t [place] [address] Care Team Providers Care Part Time Flexible Clerk Name Role Phone Shannon Ordaz MD Primary Care Provider + Benjie Pineda Unavailable Unavailable Reason for Visit * Reason Comments Transition Of Care (Tcm) HDF- Scheduled Encounter Details Date Type Department Care Team ([facility] st Contact Info) Description 08/27/2024 Patient Outreach [facility] [address] [place], [place] [phone] Shannon Ordaz MD [address] [place], [place] [phone] Transition Of Care (Tcm) (HDF- Scheduled) Social History Tobacco Use Types Packs/Day Years [...] as of this encounter Miscellaneous Notes * Significant Event - [employer] Pacheco - 08/27/2024 11:52 AM EST 08/27/24 1152 Hospital Discharges and Admission for [facility] Type of Visit Hospital Admission Date of Admission/Visit 08/23/24 Date of Discharge 08/24/24 Facility [facility] Diagnosis Kidney disease Disposition Discharged Home Follow-Up Actions Follow-Up Needed Provider appointment Follow-Up Outcome Spoke to Patient;Booked Appointment Initial Contact Date 08/27/24 joellen Tyler outbound call to patient for HDF outreach. Patient's name and were confirmed. Patient educated on the importance of follow up with provider following inpatient admission. Patient offered an HDF appt. Patient is agreeable to an appointment and has been scheduled for 09/03/2024 at 10:45 AM with . Insurance verified prior to scheduling. Patient advised to bring to appointment a photo id and insurance card. Patient also notified that a health center pharmacist will be reaching out to them via telephone prior to their scheduled appointment in order to review their medications in preparation for their appointment. Patient provided with education on contactingthe Health Center with any questions or concerns prior to the scheduled appointment. Patient educated on extended clinic hours on Mondays and Wednesdays, and Walk-In Urgent Care Located in [facility] of [facility]. Patient provided with after-hours line for [facility], , which offer night time triage service and option to transfer to water pollution control technician provider if needed. CC will request Discharge summary to be scanned into chart. documented in this encounter Plan of Treatment Upcoming Encounters Date Type Department Care Team (Late st Contact Info) Description 09/04/2024 10:45 AM EDT Office Visit [facility] [address] [place], [place] [phone] Shannon Ordaz MD [address] [place] [address] documented as of this encounter Goals Goal [...] documented as of this encounter Care Teams Part Time Flexible Clerk Relationship Specialty Start Date End Date Shannon Ordaz MD [address] [place] [phone] PCP - General Family Medicine 06/11/19 Benjie Pineda FNP [address] [place] [phone] Nurse Practitioner Family Medicine 05/23/23 documented as of this encounter
--- OUTSIDE RECORDS SUMMARY | 2024-08-28 12:39 | XMS_ITS | Encounter Summary ---
Author Organization [employer] Address [address] [facility] [address]t [place] [address] Care Team Providers Care Financial Aid Name Role Phone Shannon Ordaz MD Primary Care Provider + Benjie Pineda Unavailable Unavailable Reason for Visit * Reason Comments Med Refill Encounter Details Date Type Department Care Team (Late st Contact Info) Description 08/10/2024 Refill [facility] [address] [place], [place] [phone] Shannon Ordaz MD [address] [place] [address] Anxiety and depression Social History Tobacco Use [...] Description 09/04/2024 10:45 AM EDT Office Visit [facility] [address] [place] [phone] Shannon Ordaz MD [address] [place] [phone] documented as of this encounter Goals Goal [...] as of this encounter Care Teams Financial Aid Relationship Specialty Start Date End Date Shannon Ordaz MD [address] [place] [phone] PCP - General Family Medicine 06/11/19 Benjie Pineda FNP [address] [place] [address] Nurse Practitioner Family Medicine 05/23/23 documented as of this encounter
--- OUTSIDE RECORDS SUMMARY | 2024-08-28 12:40 | XMS_ITS | Encounter Summary ---
Author Organization [email or web address] Address [address] [facility] 7t [place] [address] Care Team Providers Care Electric Trucker Name Role Phone Shannon Ordaz MD Primary Care Provider + Benjie Pineda Unavailable Unavailable Reason for Visit * Reason Comments Med Refill Encounter Details Date Type Department Care Team (Late st Contact Info) Description 08/07/2024 Refill [facility] [address] [place], [place] [phone] Shannon Ordaz MD [address] [place], [place] [phone] TIA (transient ischemic attack) Social History Tobacco [...] Description 09/04/2024 10:45 AM EDT Office Visit [facility] [address] [place] [phone] Shannon Ordaz MD [address] [place] [phone] documented as of this encounter Goals Goal [...] documented as of this encounter Care Teams Electric Trucker Relationship Specialty Start Date End Date Shannon Ordaz MD [address] [place] [phone] PCP - General Family Medicine 06/11/19 Benjie Pineda FNP [address] [place] [address] Nurse Practitioner Family Medicine 05/23/23 documented as of this encounter
--- OUTSIDE RECORDS SUMMARY | 2024-08-28 12:40 | XMS_ITS | Encounter Summary ---
Author Organization [employer] Address [address] [facility] 7t [place] [address] Care Team Providers Care Wire Tester Name Role Phone Shannon Ordaz MD Primary Care Provider + Benjie Pineda Unavailable Unavailable Reason for Visit * Reason Comments Med Refill Encounter Details Date Type Department Care Team (Late st Contact Info) Description 06/13/2024 Refill [facility] 230 [place], [place] [phone] Shannon Ordaz MD [address] [place] [address] Primary hypertension Social History Tobacco Use Types [...] Description 09/04/2024 10:45 AM EDT Office Visit [facility] [address] [place] [phone] Shannon Ordaz MD [address] [place] [phone] documented as of this encounter Goals Goal [...] documented as of this encounter Care Teams Wire Tester Relationship Specialty Start Date End Date Shannon Ordaz MD [address] [place] [phone] PCP - General Family Medicine 06/11/19 Benjie Pineda FNP [address] [facility] [place] [address] Nurse Practitioner Family Medicine 05/23/23 documented as of this encounter
--- OUTSIDE RECORDS SUMMARY | 2024-08-28 12:40 | XMS_ITS | Encounter Summary ---
Author Organization [employer] [facility] Address [address] [place] [address] [address] [place] [address] Care Team Providers Care Director Of Agronomy Name Role Phone Shannon Ordaz MD Primary Care Provider + Benjie Pineda Unavailable Unavailable Reason for Visit * Reason Comments Med Refill Encounter Details Date Type Department Care Team (Late st Contact Info) Description 06/29/2022 Refill [facility] [address] [place] [address] [phone] Benjie Pineda FNP Social History Tobacco Use [...] Description 09/04/2024 10:45 AM EDT Office Visit [facility] [address] [place] [address] [phone] Shannon Ordaz MD [address] [place], [place] [phone] documented as of this encounter Visit Diagnoses Not on filedocumented in this encounter Care Teams Director Of Agronomy Relationship Specialty Start Date End Date Shannon Ordaz MD [address] [place] [address] PCP - General Family Medicine 06/11/19 Benjie Pineda FNP [address] [place] [address] Nurse Practitioner Family Medicine 05/23/23 [facility] 04/25/24 05/03/24 documented as of this encounter
--- OUTSIDE RECORDS SUMMARY | 2024-08-28 12:40 | XMS_ITS | Encounter Summary ---
Author Organization [employer] Address [address] [place] [address] 7 [place] [address] Care Team Providers Care Fruit Checker Name Role Phone Shannon Ordaz MD Primary Care Provider + Benjie Pineda Unavailable Unavailable Reason for Visit * Reason Comments Med Refill Encounter Details Date Type Department Care Team (Late st Contact Info) Description 07/26/2022 Refill [facility] [address] [place] [phone] Benjie Pineda FNP Major depressive disorder, recurrent [...] 10:45 AM EDT Office Visit [facility] [address] [place] [phone] Shannon Ordaz MD [address] [place] [address] [phone] documented as of this encounter Visit Diagnoses Diagnosis Major depressive disorder, recurrent episode with mood-congruent psychotic features (CMS/HCC) documented in this encounter Additional Health Concerns Assessment Noted Time PHQ-9 Depression Total Score: 11 023 9:08 AM EST documented as of this encounter Care Teams Fruit Checker Relationship Specialty Start Date End Date Shannon Ordaz MD [address] [place] [phone] PCP - General Family Medicine 06/11/19 Benjie Pineda FNP [address] [place] [address] Nurse Practitioner Family Medicine 05/23/23 [facility] 04/25/24 05/03/24 documented as of this encounter
--- OUTSIDE RECORDS SUMMARY | 2024-08-28 12:40 | XMS_ITS | Encounter Summary ---
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 difficulty getting out of bed. Pt had a fall last week with no head strike. UA negative for UTI. Brain CT negative. Lab work concerning for MUSHTAQ. Pt received 2L of NS in ED. Pt medicated per AUG. Pt has eaten per diet order. Denies pain at this time. VSS. Slovenian Speaking only. Able to communicate well with crm functional analyst. Family is supportive and has been at bedside. Submitted by and Phone Extension: [facility] * Suri Koch RN - 08/22/2024 7:25 AM EST PT Slovenian Speaking, Triage completed with virtual crimper assembler. PT to ED for complaints of weaknessin bilateral lower extremities. PT having difficulty getting out of bed. Son concerned she may havean infection as the last time this happened she had a urinary tract infection. PT denies urinary symptoms at this time. * HYUN Fox - 08/22/2024 7:22 AM EST Emergency Medicine Note Patient Name: Gabrielle Nolan Initial Evaluation: 08/22/2024 : 1960 Patient's PCP: Shannon Ordaz MD Emergency Physician: HYUN Fox History of Present Illness Chief Complaint: Chief Complaint Patient presents with Weakness - Generalized X1 week HPI: Is a 63-year-old female with past medical history significant for hypertension, hyperlipidemia, anxiety, depression, chronic low back pain, CHF, COPD, ESME, vertigo, CKD, TIA, others presenting with bilateral lower extremity weakness, headache, balance issues, low back discomfort x 1 week. She does not know any falls or trauma preceding this but states that she has had a couple falls at home over the past week without any head strike or loss of consciousness. Denies any fevers or chills at home. Denies dizziness, lightness, room spinning, cough, congestion, sore throat, chest pain, palpitations, shortness of breath, abdominal pain, bowel or bladder abnormalities. no dysuria, hematuria, increased urinary urgency or frequency. She reports she had a UTI and kidney injury in the past thatfelt similar. Denies any saddle anesthesia, lower extremity numbness, IVDU, known malignancy. ROS: I have performed a ROS with the pertinent positives and negatives documented in the history ofpresent illness. Previous History No past medical history on file. No past surgical history on file. No family history on file. has No Known Allergies. No current facility-administered medications on file prior to encounter. No current outpatient medications on file prior to encounter. Physical Exam ED Triage Vitals [08/22/24 0729] Temp Heart Rate Resp BP 36.4 ??C (97.5 ??F) 83 16 114/63 SpO2 Temp Source Heart Rate Source Patient Position 98 % Oral -- -- BP Location FiO2 (%) -- -- GENERAL: Nontoxic. SKIN: Appropriate color for ethnicity, warm, dry. No rashes. HEENT: No stridor, no lymphadenopathy. NECK: Soft, supple, full ROM, Midline structures. CHEST: Heart regular rate and rhythm, no rubs, no gallops or murmurs. PULMONARY: Clear to auscultation bilaterally without any adventitious lung sounds. ABDOMINAL: Soft, nondistended nontender with positive bowel sounds. No rebound or guarding. MUSCULOSKELETAL: Normal tone, moves all extremities spontaneously. Equal strength bilaterally, 4 out of 5 motor strength of bilateral lower extremities. 5 out of 5 motor to bilateral upper extremities. NEURO: A&Ox3, CN II-XII intact, sensation grossly intact, EOMI, no facial droop, no aphasia, noslurred speech, no extremity drift. PERRL. Names objects appropriately, follows simple commands. Finger to nose testing intact. No visual field deficits. PSYCHIATRIC: Normal affect, fluid speech, good eye contact and appropriate demeanor. Results Labs Reviewed BASIC METABOLIC PANEL - Abnormal Result Value Sodium 143 Potassium 4.2 Chloride 107 CO2 25 Anion Gap 11 Glucose 94 BUN 37 (*) Creatinine 1.74 (*) eGFR 32 (*) BUN/Creatinine Ratio 21.3 Calcium 8.7 CBC WITH AUTO DIFFERENTIAL - Abnormal WBC 6.8 RBC 4.10 Hemoglobin 11.4 (*) Hematocrit 35.4 MCV 86.1 MCH 27.7 MCHC 32.2 RDW 14.3 Platelets 154 MPV 14.0 (*) NRBC 0.0 NRBC Absolute 0.00 Neutrophils Relative 73.2 Lymphocytes Relative 11.4 Monocytes Relative 9.0 Eosinophils Relative 5.5 Basophils Relative 0.6 Immature Granulocytes Relative 0.3 Neutrophils Absolute 4.94 Lymphocytes Absolute 0.77 (*) Monocytes Absolute 0.61 Eosinophils Absolute 0.37 Basophils Absolute 0.04 Immature Granulocytes Absolute 0.02 ALKALINE PHOSPHATASE - Abnormal Alkaline Phosphatase 123 (*) RESPIRATORY VIRUS PANEL MOLECULAR STUDY - Normal Adenovirus Detection by PCR Not Detected Influenza A PCR Not Detected Influenza B PCR Not Detected Coronavirus 229E Not Detected Coronavirus HKU1 Not Detected Coronavirus OC43 Not Detected Coronavirus NL63 Not Detected Parainfluenza Virus 1 Not Detected Parainfluenza Virus 2 Not Detected Parainfluenza Virus 3 Not Detected Parainfluenza Virus 4 Not Detected RSV PCR Not Detected Human Metapneumovirus A and B Not Detected Rhinovirus/Enterovirus Not Detected Bordetella pertussis Not Detected Bordetella parapertussis Not Detected Mycoplasma pneumo by PCR Not Detected Chlamydia pneumoniae Not Detected SARS COV-2 Not Detected Narrative: Testing was performed using the [employer] Respiratory Pathogen PCR Assay. All results must [...] that are below the limit of detection. MAGNESIUM - Normal Magnesium 2.4 URINALYSIS WITH REFLEX MICROSCOPIC AND CULTURE - Normal Specific Mclean Urine 1.016 pH, Urine 5.5 Leukocytes, Urine Negative Nitrite, Urine Negative Protein, Urine Negative Glucose, Urine Negative Ketones, Urine Negative Urobilinogen, Urine 0.2 Bilirubin, Urine Negative Blood, Urine Negative ASPARTATE AMINOTRANSFERASE - Normal AST (SGOT) 15 ALANINE AMINOTRANSFERASE - Normal ALT (SGPT) 20 BILIRUBIN, TOTAL - Normal Total Bilirubin 0.2 CBC AND DIFFERENTIAL Narrative: The following orders were created for panel order CBC and differential. Procedure Abnormality Status --------- ------ CBC auto differential[[id number]] Abnormal Final result Please view results for these tests on the individual orders. URINALYSIS WITH REFLEX MICROSCOPIC AND CULTURE Narrative: The following orders were created for panel order Urinalysis with reflex microscopic and culture. Procedure Abnormality Status --------- ------ Urinalysis with reflex ...[[id number]] Normal Final result Purvis urine culture tube[[id number]] Final result Please view results for these tests on the individual orders. POCT GLUCOSE, BLOOD Abnormal Labs Reviewed BASIC METABOLIC PANEL - Abnormal; Notable for the following components: Result Value BUN 37 (*) Creatinine 1.74 (*) eGFR 32 (*) All other components within normal limits CBC WITH AUTO DIFFERENTIAL - Abnormal; Notable for the following components: Hemoglobin 11.4 (*) MPV 14.0 (*) Lymphocytes Absolute 0.77 (*) All other components within normal limits ALKALINE PHOSPHATASE - Abnormal; Notable for the following components: Alkaline Phosphatase 123 (*) All other components within normal limits XR Chest 2 Views Final Result FINDINGS/IMPRESSION: Lungs are clear. No pleural effusion or pneumothorax. Cardiac silhouette is normal in size. Left rotator cuff calcific tendinosis. No acute fracture. Mild degenerative changes seen throughout the bones. -------- FINAL REPORT -------- Dictated By: CONNOR OLIVIA Dictated Date: 08/22/2024 09:08 ET Assigned Physician: CONNOR OLIVIA Reviewed and Electronically Signed By: CONNOR OLIVIA Signed Date: 08/22/2024 09:13 ET Workstation ID: [id number] Transcribed By: Self Edit Transcribed Date: 08/22/2024 09:08 ET XR Lumbar Spine 2-3 Views Final Result FINDINGS/IMPRESSION: Unchanged, chronic fracture at L5 resulting in approximately 50% height loss centrally. Lumbar lordosis is preserved. No acute fractures. Lower lumbar predominant degenerative facet arthritis. Disc space heights are relatively preserved. -------- FINAL REPORT -------- Dictated By: CONNOR OLIVIA Dictated Date: 08/22/2024 09:11 ET Assigned Physician: CONNOR OLIVIA Reviewed and Electronically Signed By: CONNOR OLIVIA Signed Date: 08/22/2024 09:13 ET Workstation ID: [id number] Transcribed By: Self Edit Transcribed Date: 08/22/2024 09:[address] Head wo Contrast Final Result No acute intracranial abnormality -------- FINAL REPORT -------- Dictated By: CONNOR OLIVIA Dictated Date: 08/22/2024 08:50 ET Assigned Physician: CONNOR OLIVIA Reviewed and Electronically Signed By: CONNOR OLIVIA Signed Date: 08/22/2024 08:58 ET Workstation ID: [id number] Transcribed By: Self Edit Transcribed Date: 08/22/2024 08:50 ET I have discussed the incidental/abnormal imaging and/or lab abnormalities with the patient and haveinstructed them the need for further evaluation and workup with their primary care doctor. I have provided the patient with a paper copy of the abnormality. The laboratory results, imaging results and other diagnostic exam results were reviewed in the EMR. EKG Interpretation Critical Care Time None Differential Diagnosis UTI Viral syndrome Pneumonia Dehydration Vertigo Intracranial mass CVA/TIA ? Medical Decision Making Medications sodium chloride 0.9 % bolus 1,000 mL (0 mL intravenous Stopped 08/22/24 1120) acetaminophen (TYLENOL) tablet 650 mg (650 mg oral Given 08/22/24 0916) ED Course as of 08/22/24 1140 TueAug 22, 2024 0806 Patient seen and evaluated, she presents today with 1 week of lower extremity weakness that isbilateral, with falls at home and balance issues. Also reports a 5/10 right-sided headache for the past week. She has 4-5 motor strength to bilateral lower extremities, equal bilaterally, no focal neurologic deficits on my exam. Lab workup, UA, chest x-ray, viral panel, CT head. Will give IV fluidsand Tylenol and reassess. [YB] 0921 Lab workup so far shows MUSHTAQ, patient is receiving IV fluids. UA and viral panel are pending. Anticipate admission for generalized weakness and MUSHTAQ, pending completion of workup. CT head and chest without acute findings, lumbar spine x-ray shows chronic L5 fracture that is unchanged. [YB] 1101 Patient without UTI, viral panel is negative. Will be admitted to medical service for lower extremity weakness, MUSHTAQ. [YB] ED Course User Index [YB] HYUN Fox Clinical Impressions as of 08/22/24 1140 MUSHTAQ (acute kidney injury) ([facility]) Generalized weakness Procedures Procedures Diagnosis 1. MUSHTAQ (acute kidney injury) (CMS/HCC) 2. Generalized weakness Disposition Admit to Inpatient ED Prescriptions None Physician Attestation This is a split/shared visit with HYUN Fox. I personally performed the medical decision making (MDM) for the care of this patient on 08/22/24 as documented below 63-year-old female patient who presents with a complaint of bilateral leg weakness for the last week. Patient apparently has had similar symptoms in the past with urinary tract infections. She does complain of lower back pain as well. Patient also complains of headache. Head CT will be ordered as well as laboratory analysis and x-ray of the lumbar spine. Patient will be reevaluated after workup. HYUN Fox 08/22/24 11:40 AM EST HYUN Fox PA 08/22/24 0806 Lito Redding MD 08/22/24 0818 HYUN Fox 08/22/24 0950 HYUN Fox 08/22/24 1140 Cosigned by Lito Redding MD at 08/23/2024 10:10 AM EST documented in this encounter Consult Notes * Mervat Barnett PharmD - 08/22/2024 2:53 PM ESTAssociated Order(s): [facility] GENER[facility] CONSULT Pharmacy is consulted to evaluate pt's med list for concerns of polypharmacy possibly contributing to falls and generalized weakness. Patient's home medication list filled via [facility] in [place] [phone] asreconciled by med history concrete engineering technician today 08/22/24 includes: Aspirin 81 mg 1 tab qd Atorvastatin 10 mg 1 tab qhs Brimonidine 0.2% opht solution Bupropion XL 300 mg qd Carvedilol 3.125 mg 1 tab bidmeals Docusate 100 mg bid prn constipatoin Gabapentin 600 mg 1 tab bid Lisinopril 10 mg 1 tab qd Mirtazapine 30 mg 1 tab qhs Omeprazole 20 mg 1 cap qd Risperidone 3 mg 1 tab qhs Anoro Ellipta (umeclidinium/vilanterol) 62.5-25 mcg inhaler 1 puff qd Venlafaxine XR 150 mg qd Visit Vitals BP 100/57 Pulse 76 Temp 36.4 ??C (97.5 ??F) (Oral) Resp 16 Serum creatinine: 1.74 mg/dL (H) 08/22/24 0737 Estimated creatinine clearance: 32.2 mL/min (A) Estimated Creatinine Clearance: 32.2 mL/min (A) (by C-G formula based on SCr of 1.74 mg/dL (H)). Although it is not possible to pin down any specific meds as the cause of pt's falls or generalizedweakness, the following medications from her home meds do have the potential: Bupropion may cause nausea and dizziness, as well as blurred vision. If patient experiences any of these symptoms it may contribute to a fall. Typical max dose is 450 mg and patient is on 300 mg. However, the incidences of these side effects are on the lower end of the spectrum (about less than 15%), so likelihood is low. Carvedilol is used for its heart rate lowering and related blood pressure lowering effect. It is possible that the blood pressure changes may contribute to a fall. This med may also has absorption changes depending on if pt takes with meal. Possible variability in administration with food (if any) may exert slightly different BP/HR effects. Of note, in CHF patients bioavailability is increased and pt has a hx of CHF. Pt's current vitals show a BP of 100/57 and HR 76. Her dose is on the lowest spectrum (typical max dose of IR tablets is 25 mg bid). Likelihood is low. Gabapentin has side effects including dizziness, nausea, and sedation. Per taproom attendant's package insert the recommended total daily dose range in mg/day for crcl between 30-59 is 400 to 1400, usually in BID divided dosing. Patient's 600 mg BID is well within this range, but is on the upper range (1200 mg/day out of potential 1400 mg/day). Likelihood is moderate to high. Mirtazapine has known to be used for its sedative side effect in general. Typical max dose is 45 mg/day. Half-life elimination is noted to be ~20-40 hrs. If the dose is too high for the patient and the effect carries on throughout the next day (patient takes it at night), it may be a possible causeof falls. Likelihood is moderate to high. Risperidone can cause dizziness, drowsiness, and in about 2-24% of adults tremors, which may potentially contribute to falls. Likelihood is low to moderate. documented in this encounter Plan of Treatment Not on file documented as of this encounter Procedures Procedure Name Priority Date/Time Associated Diagnosis Comments ECG ANNOTATED 08/24/2024 CBC WITH AUTO DIFFERENTIAL Routine 08/23/2024 5:26 AM EST CBC AND DIFFERENTIAL Routine 08/23/2024 5:26 AM EST MAGNESIUM Routine 08/23/2024 5:26 AM EST BASIC METABOLIC PANEL Routine 08/23/2024 5:26 AM EST URINALYSIS WITH REFLEX MICROSCOPIC AND CULTURE STAT 08/22/2024 9:38 AM EST PURVIS URINE CULTURE TUBE STAT [...] ECG 12-LEAD STAT 08/22/2024 7:53 AM EST CBC WITH AUTO DIFFERENTIAL STAT 08/22/2024 7:37 AM EST CBC AND DIFFERENTIAL STAT 08/22/2024 7:37 AM EST ALANINE AMINOTRANSFERASE STAT Add-on 08/22/2024 7:37 AM EST ASPARTATE AMINOTRANSFERASE STAT Add-on 08/22/2024 7:37 AM EST ALKALINE PHOSPHATASE STAT Add-on 08/22/2024 7:37 AM EST MAGNESIUM STAT 08/22/2024 7:37 AM EST BILIRUBIN, TOTAL Add-On 08/22/2024 7:37 AM EST BASIC METABOLIC PANEL STAT 08/22/2024 7:37 AM EST documented in this encounter Results * ECG-Annotated (08/24/2024) us Provider Onbase MD ECG ORDERABLES Final Result * (ABNORMAL) CBC auto differential (08/23/2024 5:26 AM EST) [facility] WBC 6.2 4.8 - 10.8 K/mcL LAB HEMETOLOGY METHOD 08/23/2024 6:39 AM [facility] RBC 3.80 3.80 - 4.80 M/mcL LAB HEMETOLOGY METHOD 08/23/2024 6:39 AM [facility] Hemoglobin 10.6(L) 11.5 - 16.0 g/dL LAB HEMETOLOGY METHOD 08/23/2024 6:39 AM [facility] Hematocrit 32.5(L) 35.0 - 47.0 % LAB HEMETOLOGY METHOD 08/23/2024 6:39 AM [facility] MCV 85.1 79.0 - 98.0 FL LAB HEMETOLOGY METHOD 08/23/2024 6:39 AM [facility] MCH 27.7 27.0 - 32.0 pcg LAB HEMETOLOGY METHOD 08/23/2024 6:39 AM [facility] MCHC 32.6 32.0 - 37.0 g/dL LAB HEMETOLOGY METHOD 08/23/2024 6:39 AM [facility] RDW 14.2 11.0 - 15.0 % LAB HEMETOLOGY METHOD 08/23/2024 6:39 AM [facility] Platelets 134 130 - 400 K/mcL LAB HEMETOLOGY METHOD 08/23/2024 6:39 AM [facility] MPV 14.0(H) 7.0 - 11.0 FL LAB HEMETOLOGY METHOD 08/23/2024 6:39 AM [facility] NRBC 0.0 <1.0 % LAB HEMETOLOGY METHOD 08/23/2024 6:39 AM [facility] NRBC Absolute 0.00 <0.10 K/mcL LAB HEMETOLOGY METHOD 08/23/2024 6:39 AM [facility] Neutrophils Relative 72.0 % LAB HEMETOLOGY METHOD 08/23/2024 6:39 AM [facility] Lymphocytes Relative 13.4 % LAB HEMETOLOGY METHOD 08/23/2024 6:39 AM [facility] Monocytes Relative 9.2 % LAB HEMETOLOGY METHOD 08/23/2024 6:39 AM [facility] Eosinophils Relative 4.8 % LAB HEMETOLOGY METHOD 08/23/2024 6:39 AM [facility] Basophils Relative 0.3 % LAB HEMETOLOGY METHOD 08/23/2024 6:39 AM [facility] Immature Granulocytes Relative 0.3 % LAB HEMETOLOGY METHOD 08/23/2024 6:39 AM [facility] Neutrophils Absolute 4.45 1.50 - 7.00 K/mcL LAB HEMETOLOGY METHOD 08/23/2024 6:39 AM [facility] Lymphocytes Absolute 0.83(L) 1.00 - 5.00 K/mcL LAB HEMETOLOGY METHOD 08/23/2024 6:39 AM EST [facility] Monocytes Absolute 0.57 0.20 - 1.00 K/[facility] LAB HEMETOLOGY METHOD 08/23/2024 6:39 AM EST [facility] Eosinophils Absolute 0.30 0.00 - 0.50 K/[facility] LAB HEMETOLOGY METHOD 08/23/2024 6:39 AM EST [facility]) [facility] Basophils Absolute 0.02 0.00 - 0.20 K/[facility] LAB HEMETOLOGY METHOD 08/23/2024 6:39 AM EST [facility]) [facility] Immature Granulocytes Absolute 0.02 0.00 - 0.03 K/[facility] LAB HEMETOLOGY METHOD 08/23/2024 6:39 AM EST [facility] Blood Venous blood specimen / Unknown Venipuncture / Unknown 08/23/2024 5:26 AM EST 08/23/2024 6:14 AM EST Katelin Mary Ann STORE DELI MANAGER LAB BLOOD ORDERABLES Final Res ult [facility] [address] [place] [address], [place] [phone] * Magnesium (08/23/2024 5:26 AM EST) Magnesium 2.4 1.9 - 2.6 mg/dL LAB CHEMISTRY METHOD 08/23/2024 7:21 AM EST [facility] Blood Venous blood specimen / Unknown Venipuncture / Unknown 08/23/2024 5:26 AM EST 08/23/2024 6:13 AM EST Katelin Mary Ann STORE DELI MANAGER LAB BLOOD ORDERABLES Final Res ult [facility] [address] [place] [address], [place] [phone] * (ABNORMAL) Basic metabolic panel (08/23/2024 5:26 AM EST) Sodium 138 133 - 145 mmol/L LAB CHEMISTRY METHOD 08/23/2024 7:27 AM [facility] Potassium 4.2 3.5 - 5.5 mmol/L LAB CHEMISTRY METHOD 08/23/2024 7:27 AM [facility] Chloride 107 96 - 110 mmol/L LAB CHEMISTRY METHOD 08/23/2024 7:27 AM [facility] CO2 26 21 - 32 mmol/L LAB CHEMISTRY METHOD 08/23/2024 7:27 AM [facility] Anion Gap 5 3 - 11 LAB CHEMISTRY METHOD 08/23/2024 7:27 AM [facility] Glucose 104(H) 70 - 100 mg/dL LAB CHEMISTRY METHOD 08/23/2024 7:27 AM [facility] BUN 27(H) 5 - 25 mg/dL LAB CHEMISTRY METHOD 08/23/2024 7:27 AM [facility] Creatinine 1.09 0.50 - 1.10 mg/dL LAB CHEMISTRY METHOD 08/23/2024 7:27 AM [facility] eGFR 56(L) >=60 mL/min/1. 73m2 LAB CHEMISTRY METHOD 08/23/2024 7:27 AM [facility] Comment:Calculation based on the??Chronic Kidney Disease Epidemiology Collaboration (CKD-EPI) equation refit??without adjustment for race. BUN/Creatinine Ratio 24.8 LAB CHEMISTRY METHOD 08/23/2024 7:27 AM [facility] Calcium 8.8 8.5 - 10.5 mg/dL LAB CHEMISTRY METHOD 08/23/2024 7:27 AM [facility] Blood Venous blood specimen / Unknown Venipuncture / Unknown 08/23/2024 5:26 AM EST 08/23/2024 6:13 AM EST us Elizabeth Templeton MD LAB BLOOD ORDERABLES Final Res ult Performing Organization Address City/Va Hospital/ZIP Co de Phone Number [facility] [address] [place] [address], [place] [phone] * Purvis urine culture tube (08/22/2024 9:38 AM EST) Pathologist [facility] Extra Tube Hold for add-ons. 08/22/2024 11:01 AM [facility] Comment:Auto resulted. Urine Urine specimen obtained by clean catch procedure / Unknown Non-blood Collection / Unknown 08/22/2024 9:38 AM EST 08/22/2024 9:58 AM EST us Lito Redding MD LAB URINE ORDERABLES Final Resu lt Performing Organization Address [facility] Hospital/ZIP Co de Phone Number [facility] [address] [place] [address], [place] [phone] * Urinalysis with reflex microscopic and culture (08/22/2024 9:38 AM EST) [facility] Specific Mclean Urine 1.016 1.003 - 1.030 LAB URINALYSIS - AUTOMATED METHOD 08/22/2024 10:03 AM [facility] pH, Urine 5.5 5.0 - 8.0 pH LAB URINALYSIS - AUTOMATED METHOD 08/22/2024 10:03 AM [facility] Leukocytes, Urine Negative Negative LAB URINALYSIS - AUTOMATED METHOD 08/22/2024 10:03 AM [facility] Nitrite, Urine Negative Negative LAB URINALYSIS - AUTOMATED METHOD 08/22/2024 10:03 AM [facility] Protein, Urine Negative <=Trace mg/dL LAB URINALYSIS - AUTOMATED METHOD 08/22/2024 10:03 AM [facility] Glucose, Urine Negative Negative mg/dL LAB URINALYSIS - AUTOMATED METHOD 08/22/2024 10:03 AM [facility] Ketones, Urine Negative Negative mg/dL LAB URINALYSIS - AUTOMATED METHOD 08/22/2024 10:03 AM [facility] Urobilinogen, Urine 0.2 0.2 - 1.0 mg/dL LAB URINALYSIS - AUTOMATED METHOD 08/22/2024 10:03 AM [facility] Bilirubin, Urine Negative Negative LAB URINALYSIS - AUTOMATED METHOD 08/22/2024 10:03 AM [facility] Blood, Urine Negative Negative LAB URINALYSIS - AUTOMATED METHOD 08/22/2024 10:03 AM [facility] Urine Urine specimen obtained by clean catch procedure / Unknown Non-blood Collection / Unknown 08/22/2024 9:38 AM EST 08/22/2024 9:58 AM EST us Lito Redding MD LAB URINE ORDERABLES Final Resu lt [facility] [address] [place] [address], * Respiratory virus panel molecular study (08/22/2024 9:07 AM EST) Adenovirus Detection by PCR Not Detected Not Detected LAB MICROBIOLOGY METHOD 08/22/2024 10:56 AM [facility] Influenza A PCR Not Detected Not Detected LAB MICROBIOLOGY METHOD 08/22/2024 10:56 AM [facility] Influenza B PCR Not Detected Not Detected LAB MICROBIOLOGY METHOD 08/22/2024 10:56 AM [facility] Coronavirus 229E Not Detected Not Detected LAB MICROBIOLOGY METHOD 08/22/2024 10:56 AM [facility] Coronavirus HKU1 Not Detected Not Detected LAB MICROBIOLOGY METHOD 08/22/2024 10:56 AM [facility] Coronavirus OC43 Not Detected Not Detected LAB MICROBIOLOGY METHOD 08/22/2024 10:56 AM [facility] Coronavirus NL63 Not Detected Not Detected LAB MICROBIOLOGY METHOD 08/22/2024 10:56 AM [facility] Parainfluenza Virus 1 Not Detected Not Detected LAB MICROBIOLOGY METHOD 08/22/2024 10:56 AM [facility] Parainfluenza Virus 2 Not Detected Not Detected LAB MICROBIOLOGY METHOD 08/22/2024 10:56 AM [facility] Parainfluenza Virus 3 Not Detected Not Detected LAB MICROBIOLOGY METHOD 08/22/2024 10:56 AM [facility] Parainfluenza Virus 4 Not Detected Not Detected LAB MICROBIOLOGY METHOD 08/22/2024 10:56 AM [facility] RSV PCR Not Detected Not Detected LAB MICROBIOLOGY METHOD 08/22/2024 10:56 AM [facility] Human Metapneumovirus A and B Not Detected Not Detected LAB MICROBIOLOGY METHOD 08/22/2024 10:56 AM [facility] Rhinovirus/Entero virus Not Detected Not Detected LAB MICROBIOLOGY METHOD 08/22/2024 10:56 AM [facility] Bordetella pertussis Not Detected Not Detected LAB MICROBIOLOGY METHOD 08/22/2024 10:56 AM [facility] Bordetella parapertussis Not Detected Not Detected LAB MICROBIOLOGY METHOD 08/22/2024 10:56 AM [facility] Mycoplasma pneumo by PCR Not Detected Not Detected LAB MICROBIOLOGY METHOD 08/22/2024 10:56 AM [facility] Chlamydia pneumoniae Not Detected Not Detected LAB MICROBIOLOGY METHOD 08/22/2024 10:56 AM [facility] SARS COV-2 Not Detected Not Detected LAB MICROBIOLOGY METHOD 08/22/2024 10:56 AM [facility] Swab Both anterior nares / Unknown Non-blood Collection / Unknown 08/22/2024 9:07 AM EST 08/22/2024 9:52 AM EST Narrative [facility] - 08/22/2024 10:56 AM EST Testing was performed using the [employer] Respiratory Pathogen PCR Assay. All results must [...] that are below the limit of detection. us Ernst PURVIS LAB MICROBIOLOGY - GENERAL ORDER SMILEY Final Result [facility] [address] [place] [address], * XR Lumbar Spine 2-3 Views (08/22/2024 [...] preserved. -------- FINAL REPORT -------- Dictated By: CONNOR OLIVIA Dictated Date: 08/22/2024 09:11 ET Assigned Physician: CONNOR OLIVIA Reviewed and Electronically Signed By: CONNOR OLIVIA Signed Date: 08/22/2024 09:13 ET Workstation ID: [id number] Transcribed By: Self Edit Transcribed Date: 08/22/2024 09:11 ET Narrative 08/22/2024 9:13 AM EST XR LUMBAR SPINE 2-3 VIEWS INDICATION: ??Back pain TECHNIQUE: XR LUMBAR SPINE 2-3 VIEWS COMPARISON: 11/14/2023 radiograph and MRI 09/23/2023. Procedure Note Connor Olivia MD - 08/22/2024 XR LUMBAR SPINE 2-3 VIEWS INDICATION: Back pain TECHNIQUE: XR LUMBAR SPINE 2-3 VIEWS COMPARISON: 11/14/2023 radiograph and MRI 09/23/2023. IMPRESSION: FINDINGS/IMPRESSION: Unchanged, chronic fracture at L5 resulting inapproximately 50% height loss centrally. Lumbar lordosis is preserved.No acute fractures. Lower lumbar predominant degenerative facetarthritis. Disc space heights are relatively preserved. -------- FINAL REPORT -------- Dictated By: CONNOR OLIVIA Dictated Date: 08/22/2024 09:11 ET Assigned Physician: CONNOR OLIVIA Reviewed and Electronically Signed By: CONNOR OLIVIA Signed Date: 08/22/2024 09:13 ET Workstation ID: [id number] Transcribed By: Self Edit Transcribed Date: 08/22/2024 09:11 ET us Lito Redding MD IMG XR PROCEDURES Final [...] bones. -------- FINAL REPORT -------- Dictated By: CONNOR OLIVIA Dictated Date: 08/22/2024 09:08 ET Assigned Physician: CONNOR OLIVIA Reviewed and Electronically Signed By: CONNOR OLIVIA Signed Date: 08/22/2024 09:13 ET Workstation ID: [id number] Transcribed By: Self Edit Transcribed Date: 08/22/2024 09:08 ET Narrative 08/22/2024 9:13 AM EST XR CHEST 2 VIEWS INDICATION: ??Weakness, pain TECHNIQUE: XR CHEST 2 VIEWS COMPARISON: 04/23/2024 Procedure Note Connor Olivia MD - 08/22/2024 XR CHEST 2 VIEWS INDICATION: Weakness, pain TECHNIQUE: XR CHEST 2 VIEWS COMPARISON: 04/23/2024 IMPRESSION: FINDINGS/IMPRESSION: Lungs are clear. No pleural effusion orpneumothorax. Cardiac silhouette is normal in size. Left rotator cuffcalcific tendinosis. No acute fracture. Mild degenerative changes seenthroughout the bones. -------- FINAL REPORT -------- Dictated By: CONNOR OLIVIA Dictated Date: 08/22/2024 09:08 ET Assigned Physician: CONNOR OLIVIA Reviewed and Electronically Signed By: CONNOR OLIVIA Signed Date: 08/22/2024 09:13 ET Workstation ID: [id number] Transcribed By: Self Edit Transcribed Date: 08/22/2024 09:08 ET Ernst PURVIS IMStephany XR PROCEDURES Final Result * CT Head wo Contrast (08/22/2024 8:40 AM EST) Anatomical Region Laterality Modality Head and Neck Computed Tomogra phy 08/22/2024 8:50 AM EST Impressions 08/22/2024 8:58 AM EST No acute intracranial abnormality -------- FINAL REPORT -------- Dictated By: CONNOR OLIVIA Dictated Date: 08/22/2024 08:50 ET Assigned Physician: CONNOR OLIVIA Reviewed and Electronically Signed By: CONNOR OLIVIA Signed Date: 08/22/2024 08:58 ET Workstation ID: [id number] Transcribed By: Self Edit Transcribed Date: 08/22/2024 [...] scalp hematoma or skull fracture. Procedure Note Connor Olivia MD - 08/22/2024 PROCEDURE: HEAD CT [...] abnormality -------- FINAL REPORT -------- Dictated By: CONNOR OLIVIA Dictated Date: 08/22/2024 08:50 ET Assigned Physician: CONNOR OLIVIA Reviewed and Electronically Signed By: CONNOR OLIVIA Signed Date: 08/22/2024 08:58 ET Workstation ID: [id number] Transcribed By: Self Edit Transcribed Date: 08/22/2024 08:50 ET Ernst PURVIS G CT PROCEDURES Final Result * ECG 12 lead (08/22/2024 7:53 AM EST) Ventricular Rate ECG 79 BPM GEMUSE Atrial Rate 79 BPM GEMUSE P-R Interval 178 ms GEMUSE QRS Duration 98 ms GEMUSE Q-T Interval 386 ms GEMUSE QTc 442 ms GEMUSE P Wave Fairlee 71 degrees GEMUSE R Fairlee 54 degrees GEMUSE T Fairlee 57 degrees GEMUSE ECG Interpretation Normal sinus rhythm When compared with ECG of 24-APR-2024 05:50, No significant change was found Confirmed by INNA JENSEN ([id number]) on 08/22/2024 8:02:38 PM GEMUSE 08/22/2024 7:53 AM EST 08/22/2024 8:02 PM EST Lito Redding MD ECG ORDERABLES Final Result Performing Organization Address [facility] de Phone Number GEMUSE * (ABNORMAL) Alkaline phosphatase (08/22/2024 7:37 AM EST) Alkaline Phosphatase 123(H) 42 - 121 unit/L LAB CHEMISTRY METHOD 08/22/2024 9:06 AM EST [facility] Blood Venous blood specimen / Unknown Venipuncture / Unknown 08/22/2024 7:37 AM EST 08/22/2024 8:33 AM EST Ernst PURVIS LAB BLOOD ORDERABLES Final Resul t Performing Organization Address [facility] de Phone Number [facility] [address] [place] [address], [place] [phone] * Bilirubin, total (08/22/2024 7:37 AM EST) [facility] Total Bilirubin 0.2 0.0 - 1.4 mg/dL LAB CHEMISTRY METHOD 08/22/2024 9:06 AM EST [facility] Blood Venous blood specimen / Unknown Venipuncture / Unknown 08/22/2024 7:37 AM EST 08/22/2024 8:33 AM EST Vicente Donald [place] LAB BLOOD ORDERABLES Final Resul t Performing Organization Address [facility] de Phone Number [facility] [address] [place] [address], [place] [phone] * Alanine aminotransferase (08/22/2024 7:37 AM EST) ALT (SGPT) 20 10 - 60 unit/L LAB CHEMISTRY METHOD 08/22/2024 9:06 AM EST [facility] Blood Venous blood specimen / Unknown Venipuncture / Unknown 08/22/2024 7:37 AM EST 08/22/2024 8:33 AM EST [facility] LAB BLOOD ORDERABLES Final Resul t Performing Organization Address City/[facility]/ZIP Co de Phone Number [facility] [address] [place] [address], [place] [phone] * Aspartate aminotransferase (08/22/2024 7:37 AM EST) AST (SGOT) 15 10 - 42 unit/L LAB CHEMISTRY METHOD 08/22/2024 9:06 AM [facility] Blood Venous blood specimen / Unknown Venipuncture / Unknown 08/22/2024 7:37 AM EST 08/22/2024 8:33 AM EST [facility] LAB BLOOD ORDERABLES Final Resul t Performing Organization Address [facility]/ZIP Co de Phone Number [facility] [address] [place] [address], [place] [phone] * (ABNORMAL) CBC auto differential (08/22/2024 7:37 AM EST) WBC 6.8 4.8 - 10.8 K/mcL LAB HEMETOLOGY METHOD 08/22/2024 8:51 AM [facility] RBC 4.10 3.80 - 4.80 M/mcL LAB HEMETOLOGY METHOD 08/22/2024 8:51 AM [facility] Hemoglobin 11.4(L) 11.5 - 16.0 g/dL LAB HEMETOLOGY METHOD 08/22/2024 8:51 AM [facility] Hematocrit 35.4 35.0 - 47.0 % LAB HEMETOLOGY METHOD 08/22/2024 8:51 AM [facility] MCV 86.1 79.0 - 98.0 FL LAB HEMETOLOGY METHOD 08/22/2024 8:51 AM [facility] MCH 27.7 27.0 - 32.0 pcg LAB HEMETOLOGY METHOD 08/22/2024 8:51 AM [facility] MCHC 32.2 32.0 - 37.0 g/dL LAB HEMETOLOGY METHOD 08/22/2024 8:51 AM [facility] RDW 14.3 11.0 - 15.0 % LAB HEMETOLOGY METHOD 08/22/2024 8:51 AM [facility] Platelets 154 130 - 400 K/mcL LAB HEMETOLOGY METHOD 08/22/2024 8:51 AM [facility] MPV 14.0(H) 7.0 - 11.0 FL LAB HEMETOLOGY METHOD 08/22/2024 8:51 AM [facility] NRBC 0.0 <1.0 % LAB HEMETOLOGY METHOD 08/22/2024 8:51 AM [facility] NRBC Absolute 0.00 <0.10 K/mcL LAB HEMETOLOGY METHOD 08/22/2024 8:51 AM [facility] Neutrophils Relative 73.2 % LAB HEMETOLOGY METHOD 08/22/2024 8:51 AM [facility] Lymphocytes Relative 11.4 % LAB HEMETOLOGY METHOD 08/22/2024 8:51 AM [facility] Monocytes Relative 9.0 % LAB HEMETOLOGY METHOD 08/22/2024 8:51 AM [facility] Eosinophils Relative 5.5 % LAB HEMETOLOGY METHOD 08/22/2024 8:51 AM [facility] Basophils Relative 0.6 % LAB HEMETOLOGY METHOD 08/22/2024 8:51 AM [facility] Immature Granulocytes Relative 0.3 % LAB HEMETOLOGY METHOD 08/22/2024 8:51 AM EST [facility] Neutrophils Absolute 4.94 1.50 - 7.00 K/[facility] LAB HEMETOLOGY METHOD 08/22/2024 8:51 AM EST [facility] Lymphocytes Absolute 0.77(L) 1.00 - 5.00 K/mcL LAB HEMETOLOGY METHOD 08/22/2024 8:51 AM EST [facility] Monocytes Absolute 0.61 0.20 - 1.00 K/[facility] LAB HEMETOLOGY METHOD 08/22/2024 8:51 AM EST [facility] Eosinophils Absolute 0.37 0.00 - 0.50 K/[facility] LAB HEMETOLOGY METHOD 08/22/2024 8:51 AM EST [facility] Basophils Absolute 0.04 0.00 - 0.20 K/mcL LAB HEMETOLOGY METHOD 08/22/2024 8:51 AM EST [facility] Immature Granulocytes Absolute 0.02 0.00 - 0.03 K/mcL LAB HEMETOLOGY METHOD 08/22/2024 8:51 AM EST [facility] Blood Venous blood specimen / Unknown Venipuncture / Unknown 08/22/2024 7:37 AM EST 08/22/2024 8:34 AM EST us Lito Redding MD LAB BLOOD ORDERABLES Final Resu lt [facility] [address] [place] [address], * Magnesium (08/22/2024 7:37 AM EST) Magnesium 2.4 1.9 - 2.6 mg/dL LAB CHEMISTRY METHOD 08/22/2024 9:06 AM EST [facility] Blood Venous blood specimen / Unknown Venipuncture / Unknown 08/22/2024 7:37 AM EST 08/22/2024 8:33 AM EST us Lito Redding MD LAB BLOOD ORDERABLES Final Resu lt [facility] [address] [place] [address], [place] [phone] * (ABNORMAL) Basic metabolic panel (08/22/2024 7:37 AM EST) Sodium 143 133 - 145 mmol/L LAB CHEMISTRY METHOD 08/22/2024 9:06 AM [facility] Potassium 4.2 3.5 - 5.5 mmol/L LAB CHEMISTRY METHOD 08/22/2024 9:06 AM [facility] Chloride 107 96 - 110 mmol/L LAB CHEMISTRY METHOD 08/22/2024 9:06 AM [facility] CO2 25 21 - 32 mmol/L LAB CHEMISTRY METHOD 08/22/2024 9:06 AM [facility] Anion Gap 11 3 - 11 LAB CHEMISTRY METHOD 08/22/2024 9:06 AM [facility] Glucose 94 70 - 100 mg/dL LAB CHEMISTRY METHOD 08/22/2024 9:06 AM [facility] BUN 37(H) 5 - 25 mg/dL LAB CHEMISTRY METHOD 08/22/2024 9:06 AM [facility] Creatinine 1.74(H) 0.50 - 1.10 mg/dL LAB CHEMISTRY METHOD 08/22/2024 9:06 AM [facility] eGFR 32(L) >=60 mL/min/1. 73m2 LAB CHEMISTRY METHOD 08/22/2024 9:06 AM [facility] Comment:Calculation based on the??Chronic Kidney Disease Epidemiology Collaboration (CKD-EPI) equation refit??without adjustment for race. BUN/Creatinine Ratio 21.3 LAB CHEMISTRY METHOD 08/22/2024 9:06 AM EST [facility] Calcium 8.7 8.5 - 10.5 mg/dL LAB CHEMISTRY METHOD 08/22/2024 9:06 AM EST [facility] Blood Venous blood specimen / Unknown Venipuncture / Unknown 08/22/2024 7:37 AM EST 08/22/2024 8:33 AM EST Lito Redding MD LAB BLOOD ORDERABLES Final Resu lt [facility] [address] [place] [address], [place] [phone] documented in this encounter Visit Diagnoses Diagnosis ARF (acute renal failure) ([facility])- Primary Acute kidney failure, unspecified MUSHTAQ (acute kidney injury) ([facility]) Generalized weakness documented in this encounter Admitting Diagnoses Diagnosis ARF (acute renal failure) ([facility]) Acute kidney failure, unspecified documented in this encounter Administered Medications Inactive Administered Medications - up to 3 most recent administrations Medication Order MAR Action Action Date Dose Rate Site acetaminophen (TYLENOL) tablet 650 mg 650 mg, oral, Once, On Tue08/22/24 at 0810, For 1 dose Given 08/22/2024 9:16 AM EST 650 mg aspirin EC tablet 81 mg 81 mg, oral, Every morning, First dose on Tue08/23/24 at 0700, Do not crush, chew, or split. Given 08/23/2024 6:17 AM EST 81 mg atorvastatin (LIPITOR) tablet 10 mg 10 mg, oral, Nightly, First dose on Tue08/22/24 at 2100 Given 08/22/2024 9:54 PM EST 10 mg Given 08/22/2024 8:54 PM EST 10 mg brimonidine (ALPHAGAN) 0.2 % ophthalmic solution 1 drop 1 drop, Both Eyes, 3 times daily, First dose on Tue08/22/24 at 1400 Given 08/23/2024 9:13 AM EST 1 drop Given 08/22/2024 9:55 PM EST 1 drop Given 08/22/2024 8:57 PM EST 1 drop buPROPion XL (WELLBUTRIN XL) 24 hr tablet 300 mg 300 mg, oral, Every morning, First dose on Tue08/23/24 at 0700, Do not crush, chew, or split. Given 08/23/2024 6:17 AM EST 300 mg formoterol (PERFOROMIST) 20 mcg/2 mL nebulizer solution 20 mcg 20 mcg, nebulization, 2 times daily, First dose on Tue08/22/24 at 2000, Therapeutic substitution for ANORO ELLIPTA is formoterol neb twice daily and revefenacin neb once daily. Given 08/23/2024 7:43 AM EST 20 mcg Given 08/22/2024 8:25 PM EST 20 mcg heparin (UFH) injection 5,000 Units 5,000 Units, subcutaneous, Every 8 hours scheduled, First dose on Tue08/22/24 at 1400, Enter Indication for use of heparin (UFH) instead of enoxaparin (LOVENOX): (free text): mushtaq, Indication: VTE Prophylaxis, Indications: Prophylaxis of Venous ThromboembolismIndications:Pr ophylaxis of Venous Thromboembolism Given 08/23/2024 6:17 AM EST 5,000 Units Left Lower Abdomen Given 08/22/2024 9:55 PM EST 5,000 Units R ight Lower Abdomen Given 08/22/2024 2:22 PM EST 5,000 Units R ight Lower Abdomen lactated Ringer's infusion 100 mL/hr, intravenous, Continuous, Starting on Tue08/23/24 at 0500 pantoprazole (PROTONIX) EC tablet 40 mg 40 mg, oral, Every morning before breakfast, First dose on Tue08/23/24 at 0600, Do not crush, chew, or split. Given 08/23/2024 6:17 AM EST 40 mg revefenacin (YUPELRI) 175 mcg/3 mL nebulizer solution 175 mcg 175 mcg, nebulization, Daily, First dose on Tue08/22/24 at 1231, Therapeutic substitution for ANORO ELLIPTA is formoterol neb twice daily and revefenacin neb once daily. Given 08/23/2024 7:43 AM EST 175 mcg Given 08/22/2024 2:22 PM EST 175 mcg risperiDONE (RisperDAL) tablet 3 mg 3 mg, oral, Nightly, First dose on Tue08/22/24 at 2100 Given 08/22/2024 9:54 PM EST 3 mg Given 08/22/2024 8:54 PM EST 3 mg sodium chloride 0.9 % bolus 1,000 mL 1,000 mL, intravenous, at 2,000 mL/hr, Administer over 30 Minutes, Once, On Tue08/22/24 at 0810, For 1 dose New Bag 08/22/2024 9:16 AM EST 1,000 mL 2000 mL/hr venlafaxine XR (EFFEXOR-XR) 24 hr capsule 150 mg 150 mg, oral, Every morning, First dose on Tue08/23/24 at 0700, Capsule may be swallowed whole, or may be opened and its contents sprinkled on applesauce if consumed immediately without chewing. Do not crush or chew. Given 08/23/2024 6:17 AM EST 150 mg documented in this encounter Historical Medications * This list may reflect changes made after this encounter. venlafaxine XR (EFFEXOR-XR) 150 mg 24 hr capsule Take 1 capsule (150 mg total) by mouth 1 (one) time each day in the morning. umeclidinium-aleshia nteroL (ANORO ELLIPTA) 62.5-25 mcg/actuation inhaler Inhale 1 puff by mouth 1 (one) time each day. risperiDONE (RisperDAL) 3 mg tablet Take 1 tablet (3 mg total) by mouth at bedtime. 12/28/2022 omeprazole (PriLOSEC) [address] capsule Take 1 capsule (20 mg total) by mouth 1 (one) time each day. 06/25/2024 mirtazapine (REMERON) 30 mg tablet Take 2 tablets (60 mg total) by mouth at bedtime. at bedtime lisinopriL (PRINIVIL,ZESTRIL ) 10 mg tablet Take 1 tablet (10 mg total) by mouth 1 (one) time each day in the morning. gabapentin (NEURONTIN) 600 mg tablet Take 1 tablet (600 mg total) by mouth 2 (two) times a day. 09/24/2021 docusate sodium (COLACE) 100 mg capsule Take 1 capsule (100 mg total) by mouth 2 (two) times a day if needed for constipation. carvediloL (COREG) 3.125 mg tablet Take 1 tablet (3.125 mg total) by mouth 2 (two) times a day with meals. 03/18/2024 buPROPion XL (WELLBUTRIN XL) 300 mg 24 hr tablet Take 1 tablet (300 mg total) by mouth 1 (one) time each day in the morning. brimonidine (ALPHAGAN) 0.2 % ophthalmic solution 08/08/2024 atorvastatin (LIPITOR) 10 mg tablet Take 1 tablet (10 mg total) by mouth at bedtime. 04/19/2024 aspirin 81 mg EC tablet Take 1 tablet (81 mg total) by mouth 1 (one) time each day in the morning. 08/07/2024 added in this encounter Active and Recently Administered Medications Times are shown in EST. Scheduled Medication Order 08/21/2024 08/22/2024 08/23/2024 acetaminophen (TYLENOL) tablet 650 mg (COMPLETED) 650 mg, oral, Once, On Tue08/22/24 at 0810, For 1 dose 0916 (Given - Provider: Dionte Ji RN) aspirin EC tablet 81 mg 81 mg, oral, Every morning, First dose on Corinne 08/23/24 at 0700, Do not crush, chew, or split. 0617 (Given - Provid er: Gabrielle Nixon RN) atorvastatin (LIPITOR) tablet 10 mg 10 mg, oral, Nightly, First dose on Tue08/22/24 at 2100 2053 (Given - Provider: Piper Mcgregor RN)2153 (Given - Provider: Gabrielle Nixon RN) brimonidine (ALPHAGAN) 0.2 % ophthalmic solution 1 drop 1 drop, Both Eyes, 3 times daily, First dose on Tue08/22/24 at 1400 1724 (Not Given - Provider: Piper Mcgregor RN - Reason: Medication not available)2056 (Given - Provider: Piper Mcgregor RN)2154 (Given - Provider: Gabrielle Nixon, ESTELLE) 0913 (Given - Provider: Eileen Reid RN)1400 (Canceled Entry - Provider: Automatic Discharge Provider - Comment: Automatically canceled at discontinue of medication order) buPROPion XL (WELLBUTRIN XL) 24 hr tablet 300 mg 300 mg, oral, Every morning, First dose on Corinne 08/23/24 at 0700, Do not crush, chew, or split. 0617 (Given - Provid er: Gabrielle Nixon RN) carvediloL (COREG) tablet 3.125 mg 3.125 mg, oral, 2 times daily with meals, First dose on Tue08/22/24 at 1700 1734 (Not Given - Provider: Piper Mcgregor RN - Reason: Order parameters not met) 0850 (Not Given - Provider: Eileen Reid RN - Reason: See Provider Order) formoterol (PERFOROMIST) 20 mcg/2 mL nebulizer solution 20 mcg(Linked Group 1) 20 mcg, nebulization, 2 times daily, First dose on Tue08/22/24 at 2000, Therapeutic substitution for ANORO ELLIPTA is formoterol neb twice daily and revefenacin neb once daily. 2024 (Given - Provider: Jyotsna Miller) 0743 (Given - Provider: Elana Ha) heparin (UFH) injection 5,000 Units 5,000 Units, subcutaneous, Every 8 hours scheduled, First dose on Tue08/22/24 at 1400, Enter Indication for use of heparin (UFH) instead of enoxaparin (LOVENOX): (free text): mushtaq, Indication: VTE Prophylaxis, Indications: Prophylaxis of Venous Thromboembolism 1422 (Given - Provider: Piper Mcgregor RN)215 (Given - Provider: Gabrielle Nixon RN) 0617 (Given - Provider: Gabrielle Nixon RN)1400 (Canceled Entry - Provider: Automatic Discharge Provider - Comment: Automatically canceled at discontinue of medication order) pantoprazole (PROTONIX) EC tablet 40 mg 40 mg, oral, Every morning before breakfast, First dose on Corinne 08/23/24 at 0600, Do not crush, chew, or split. 0617 (Given - Provid er: Gabrielle Nixon RN) revefenacin (YUPELRI) 175 mcg/3 mL nebulizer solution 175 mcg(Linked Group 1) 175 mcg, nebulization, Daily, First dose on Tue08/22/24 at 1231, Therapeutic substitution for ANORO ELLIPTA is formoterol neb twice daily and revefenacin neb once daily. 1422 (Given - Provider: Piper Mcgregor RN) 0743 (Given - Provider: Elana Ha) risperiDONE (RisperDAL) tablet 3 mg 3 mg, oral, Nightly, First dose on Tue08/22/24 at 2100 2054 (Given - Provider: Piper Mcgregor, RN)2154 (Given - Provider: Gabrielle Nixon RN) sodium chloride 0.9 % bolus 1,000 mL (COMPLETED) 1,000 mL, intravenous, at 2,000 mL/hr, Administer over 30 Minutes, Once, On Tue08/22/24 at 0810, For 1 dose 0916 (New Bag - Provider: Dionte Ji, RN)1120 (Stopped - Provider: Piper Mcgregor RN) venlafaxine XR (EFFEXOR-XR) 24 hr capsule 150 mg 150 mg, oral, Every morning, First dose on Tue08/23/24 at 0700, Capsule may be swallowed whole, or may be opened and its contents sprinkled on applesauce if consumed immediately without chewing. Do not crush or chew. 0617 (Given - Provid er: Gabrielle Nixon RN) Continuous Medication Order 08/21/2024 08/22/2024 08/23/2024 lactated Ringer's infusion 100 mL/hr, intravenous, Continuous, Starting on Tue08/23/24 at 0500 0552 (Not Given - Pr ovider: Gabrielle Nixon RN - Reason: Other - Comment: PROVIDER WANTED MED HELD) Linked Groups Order Group 1: formoterol (PERFOROMIST) 20 mcg/2 mL nebulizer solution 20 mcgJump to med 20 mcg, nebulization, 2 times daily, First dose on Tue08/22/24 at 2000, Therapeutic substitution for ANORO ELLIPTA is formoterol neb twice daily and revefenacin neb once daily. And revefenacin (YUPELRI) 175 mcg/3 mL nebulizer solution 175 mcgJump to med 175 mcg, nebulization, Daily, First dose on Tue08/22/24 at 1231, Therapeutic substitution for ANORO ELLIPTA is formoterol neb twice daily and revefenacin neb once daily. documented in this encounter Orders Medications Ordered That Antonio ht Not Have Been Administered Count Last Ordered Date First Ordered Date carvediloL (COREG) tablet 3.125 mg 1 2024 enoxaparin (LOVENOX) injection 40 mg 1 07/29 lactated Ringer's infusion 1 08/22/2024 sodium chloride 0.9 % bolus 1,000 mL 1 07/29 Consult Count Last Ordered Date First Orde red Date POST ACUTE HOME HEALTH CARE REQUEST 1 08/23 TH IP PHARMACY GENERAL CONSULT 1 08/22/2024 Admission Count Last Ordered Date First Orde red Date INITIATE OBSERVATION STATUS 1 08/22/2024 Transfer Count Last Ordered Date First Orde red Date ED TO FLOOR BED REQUEST 1 08/22/2024 Discharge Count Last Ordered Date First Orde red Date DISCHARGE PATIENT 1 08/23/2024 documented in this encounter Additional Health Concerns Infection Onset Date Last Indicated Resolved Time Respiratory Rule-Out 08/22/2024 08/22/2024 025 10:56 AM EST COVID-19 Rule-Out 08/22/2024 08/22/2024 08/22/2024 10:56 AM EST documented as of this encounter Care Teams Wiping Rag Washer Relationship Specialty Start Date End Date Shannon Ordaz MD [address] [place] [phone] PCP - General Internal Medicine 08/22/24 documented as of this encounter
--- OUTSIDE RECORDS SUMMARY | 2024-08-28 12:40 | XMS_ITS | Encounter Summary ---
Author Organization [employer] Address [address] [place] [address] [address] [place] [address] Care Team Providers Care Scheduler Name Role Phone Shannon Ordaz MD Primary Care Provider + Benjie Pineda Unavailable Unavailable Reason for Visit * Reason Onset Date Comments Pre-op Exam 06/21/2024 Encounter Details Date Type Department Care Team ([facility] st Contact Info) Description 06/21/2024 Telephone [facility] [address] [place], [place] [phone] Shannon Ordaz MD [address] [place], [place] [phone] Pre-op Exam Social History Tobacco Use Types [...] Melita Stevenson - 06/21/2024 9:57 AM EST World History Teacher spoke with Melanie at [facility] and agreed to inform pt she is scheduled for pre op on 07/25/24 at 9AM with . Appointment reminder letter mailed Date of Surgery: 08/07/2024 and 08/23/2024 (right eye) Surgical procedure being done: Cataract Surgery Type of anesthesia: MAC Lab needed: No EKG: No Surgeon's name: Tino Falk Facility name: [facility] Surgeon's office number: [phone] Ext [phone] Surgeon's office fax number: [phone] Contact name (person you spoke with): Melanie Last office note from surgeon requested: No * Telephone Encounter - Watson Abdi - 06/21/2024 9:08 AM EST Date of Surgery: 08/07/2024 and 08/23/2024 (right eye) Surgical procedure being done: Cataract Surgery Type of anesthesia: MAC Lab needed: No EKG: No Surgeon's name: Tino Falk Facility name: [facility] Surgeon's office number: [phone] Surgeon's office fax number: [phone] Contact name (person you spoke with): Melanie Last office note from surgeon requested: No Send Message to Melita Stevenson and Marc Apodaca documented in this encounter Plan of Treatment Upcoming Encounters Date Type Department Care Team (Late st Contact Info) Description 09/04/2024 10:45 AM EDT Office Visit [facility] [address] [place] [address] Shannon Ordaz MD [address] [place] [address] documented as of this encounter Goals Goal [...] documented as of this encounter Care Teams Scheduler Relationship Specialty Start Date End Date Shannon Ordaz MD [address] [place] [phone] PCP - General Family Medicine 06/11/19 Benjie Pineda FNP [address] [place] [phone] Nurse Practitioner Family Medicine 05/23/23 documented as of this encounter
== END 2024-08-28 10:25 | disposition home or self-care (01) ==
LOC: HO.LAB 10:24
PROVIDERS: PCP Internal Medicine; Visit Provider Internal Medicine
DX: I10 Essential (primary) hypertension (principal)
CPT/HCPCS: 36415; 80048

== ENCOUNTER 2024-08-29 13:28 | Outpatient (AMB) | payer MEDICARE, MEDICAID, SELFPAY ==
--- NOTE | 2024-08-29 13:38 | HO.NEPHOV_ITS ---
Vital Signs 08/29/24 13:40 Height 5 ft 2 in Weight 184 lb BMI 33.7 BP 102/60 Blood Pressure Location Lt brachial Position Sitting Pulse 75 Pulse Source Pulse Oximeter Pulse Oximetry (%) 97 Oxygen Delivery Method Room Air Intake Visit Reasons: [facility] ER discharger Academic Vice President Required: Yes Academic Vice President Language: Halftone Operator Services: Academic Vice President Offered & Declined ([facility] air sealing technician services refused, pt accompanied by CERTIFIED HEARING INSTRUMENT DISPENSER) Accompanied by: Other Relationship Allergies No Known Allergies [No Known Allergies*] Allergy (Verified 08/29/24 13:40) HPI Comments Details: Gabrielle was seen in follow up for chronic kidney disease and hypertension. She recently presented to ER with generalized weakness. She had MUSHTAQ at that time with her serum creatinine going up to 1.74. Lisinopril was held and was given IV fluids. Her serum creatinine settled to baseline. She has lot of arthritic issues and has a H/O taking nonsteroidals as needed basis. She denies any coronary artery disease, congestive heart failure, carotid stenosis, CVA, renal artery stenosis or peripheral arterial disease. She has not a diabetic. She denies any nausea vomiting or diarrhea, pedal edema, shortness of breath, paroxysmal nocturnal dyspnea, orthopnea, orthostatic symptoms, hematuria or urinary symptoms. She has history of CVA. She feels improved [facility] Medical History Chronic constipation History of colon polyps Internal hemorrhoids CVA (cerebral vascular accident) Abdominal pain Barretts esophagus Acid reflux Dyspnea Depression Anxiety Hypertension COPD (chronic obstructive pulmonary disease) Surgical History Hx of colonoscopy History of esophagogastroduodenoscopy (EGD) H/O section History of appendectomy History of cholecystectomy Family History Mother Cancer Maternal Grandmother Cancer Social History Household Members: None Alcohol intake: never Patient Tobacco Use Status: Never used Tobacco Current occupational status: disabled Review of Systems Const All systems reviewed & are unremarkable except as noted in HPI and below Physical Exam Vital Signs: Last Vital Signs Pulse 75 08/29/24 13:40 BP 102/60 08/29/24 13:40 Pulse Ox 97 08/29/24 13:40 Oxygen Delivery Method Room Air 08/29/24 13:40 BMI result Body Mass Index 33.7 Const General: comfortable and no acute distress Orientation/consciousness: patient oriented x3 HEENT Head: Yes normocephalic Mouth: Normal oral and palatal mucosa present Eyes EOM: EOMs intact bilaterally Neck Neck: Yes supple Resp Auscultation: clear to auscultation bilaterally Cardio Jugular venous distension: no JVD Rate: regular rate GI Palpation (GI): Soft to palpation Auscultation: normal bowel sounds Skin General skin exam: no rashes or lesions noted Neuro General: patient oriented x3 and moves all extremities Extrem General: Yes no pedal edema Results Reviewed Nephrology Results: Hgb 10.5 g/dl (12.0-16.0) L 05/04/24 WBC 7.1 X10*3/uL (4.8-10.8) 05/04/24 Plt Count 173 X10*3/uL (160-400) 05/04/24 Sodium 143 mmol/L (135-145) 08/28/24 Potassium 4.2 mmol/L (3.3-5.1) 08/28/24 Chloride 108 mmol/L (96-108) 08/28/24 Carbon Dioxide 28 mmol/L (22-29) 08/28/24 BUN 17 mg/dL (9-16) H 08/28/24 Creatinine 1.06 mg/dL (0.5-1.4) 08/28/24 Calcium 9.4 mg/dL (8.4-10.2) 08/28/24 Urine Protein Trace mg/dL (Neg-Trace) 05/04/24 Assessment & Plan Assessment & Plan (1) Acute kidney injury: Code(s): N17.9 - Acute kidney failure, unspecified Category: Medical (2) CKD (chronic kidney disease) stage 3, GFR 30-59 ml/min: Code(s): N18.30 - Chronic kidney disease, stage 3 unspecified Category: Medical Qualifiers: Chronic kidney disease stage 3 subtype: stage 3a (GFR 45-59) Qualified Code(s): N18.31 - Chronic kidney disease, stage 3a (3) Hypertension: Code(s): I10 - Essential (primary) hypertension Category: Medical Qualifiers: Hypertension type: primary hypertension Qualified Code(s): I10 - Essential (primary) hypertension Plan She recently presented to ER with generalized weakness. She had MUSHTAQ at that time with her serum creatinine going up to 1.74. Lisinopril was held and was given IV fluids. Her serum creatinine settled to baseline.She has CKD stage 3 due to vascular disease.She has H/O hypertension and had been on HCTZ/Verapamil and ACEI- on hold now. I plan to do a Doppler of her renal arteries with time. She does not have any significant proteinuria. She should avoid nonsteroidal anti- inflammatories and maintain good hydration. I did not make any medication changes today. Follow-up appointment given Orders: Orders Creatinine 3 Months I10 - Essential (primary) hypertension, N17.9 - Acute kidney failure, unspecified, N18.31 - Chronic kidney disease, stage 3a Protein Creatinine Ratio, Ur 3 Months I10 - Essential (primary) hypertension, N17.9 - Acute kidney failure, unspecified, N18.31 - Chronic kidney disease, stage 3a Electrolytes 3 Months I10 - Essential (primary) hypertension, N17.9 - Acute kidney failure, unspecified, N18.31 - Chronic kidney disease, stage 3a Blood Urea Nitrogen 3 Months I10 - Essential (primary) hypertension, N17.9 - Acute kidney failure, unspecified, N18.31 - Chronic kidney disease, stage 3a Coding Level of Care Code Est Pt Level 4 (10777) Diagnoses Acute kidney injury N17.9 Stage 3a chronic kidney disease N18.31 Chronic kidney disease stage 3 subtype: stage 3a (GFR 45-59) Primary hypertension I10 Hypertension type: primary hypertension
[2024-08-29 13:40] VITALS: BP 102/60; PULSE 75; O2SAT 97; BMI 33.7
--- OUTSIDE RECORDS SUMMARY | 2024-08-29 16:06 | XMS_ITS | Encounter Summary ---
Author Organization [employer] Address [address] [place] [address] 7[address] [place] [address] Care Team Providers Care Spice Mixer Name Role Phone Shannon Ordaz MD Primary Care Provider + Benjie Pineda Unavailable Unavailable Encounter Details Date Type Department Care Team (Late st Contact Info) Description 08/30/2022 Orders Only [facility] MED[facility]INE [address] [place] [address] [phone] Radha Hubbard MD [address] [place] [address] [phone] Neuropathy involving both lower extremities (Primary Dx) [...] Description 09/04/2024 10:45 AM EDT Office Visit [facility] [address] [place] [address] [phone] Shannon Ordaz MD [address] [place], [place] [phone] documented as of this encounter Visit Diagnoses Diagnosis Neuropathy involving both lower extremities- Primary documented in this encounter Additional Health Concerns Assessment Noted Time PHQ-9 Depression Total Score: 9 08/19/ 23 11:05 AM EST documented as of this encounter Care Teams Spice Mixer Relationship Specialty Start Date End Date Shannon Ordaz MD [address] [place] [address] PCP - General Family Medicine 06/11/19 Benjie Pineda FNP [address] [place] [address] Nurse Practitioner Family Medicine 05/23/23 [facility] 04/25/24 05/03/24 documented as of this encounter
--- OUTSIDE RECORDS SUMMARY | 2024-08-29 16:06 | XMS_ITS | Encounter Summary ---
Author Organization [employer] Address [address] [place] [address] 7t [place] [address] Care Team Providers Care Medicaid Business Analyst Name Role Phone Shannon Ordaz MD Primary Care Provider + Benjie Pineda Unavailable Unavailable Reason for Visit * Reason Onset Date Comments Hospital Follow-up 08/27/2024 Encounter Details Date Type Department Care Team ([facility] st Contact Info) Description 08/27/2024 Telephone [facility]INE [address] [place], [place] [phone] Shannon Ordaz MD [address] [place], [place] [phone] Hospital Follow-up Social History Tobacco Use Types [...] from pt requesting a HDF appt. Hospital: [facility] Date of admission: 08/23/24 Discharge date: 08/24/24 Diagnosed: Kidney disease documented in this encounter Plan of Treatment Upcoming Encounters Date Type Department Care Team (Late st Contact Info) Description 09/04/2024 10:45 AM EDT Office Visit [facility] [address] [place] [phone] Shannon Ordaz MD [address] [place] [address] documented as of this encounter Goals Goal [...] documented as of this encounter Care Teams Medicaid Business Analyst Relationship Specialty Start Date End Date Shannon Ordaz MD [address] [place] [address] PCP - General Family Medicine 06/11/19 Benjie Pineda FNP [address] [place] [address] Nurse Practitioner Family Medicine 05/23/23 documented as of this encounter
--- OUTSIDE RECORDS SUMMARY | 2024-08-29 16:06 | XMS_ITS | Encounter Summary ---
Author Organization [employer] Address [address] [facility] 7t [place] [address] Care Team Providers Care Bow Making Machine Operator Name Role Phone Shannon Ordaz MD Primary Care Provider + Benjie Pineda Unavailable Unavailable Reason for Visit * Reason Onset Date Comments Call Back Request 08/24/2024 Appointment Request 08/24/2024 Lab Orders 08/24/2024 Encounter Details Date Type Department Care Team ([facility] st Contact Info) Description 08/24/2024 Telephone [facility] [address] [place], [place] [phone] Shannon Ordaz MD [address] [place], [place] [phone] Call Back Request; Appointment Request; Lab Orders [...] as of this encounter Miscellaneous Notes * Result Encounter Note - Shannon Ordaz MD - 08/28/2024 2:35 PM EST Labs on 08/28/2024 showed improvement of GFR after patient seen on ED last week. I will follow-up at patient's next appointment with me for hospital discharge follow-up. No need to change plan of care,patient should continue home care and VNA services if needed as per hospital discharge. * Telephone Encounter - Larissa Cross RN - 08/24/2024 2:50 PM EST Pt at [facility] ED 08/22/24 for MUSHTAQ, recommended follow up BMP within 1 week (pt left ED 08/23/24). Ordered pended to PCP. Telephone call to pt per provider request to status check. No answer, left voicemail with [facility] tire beader maker Nathanael #[phone] asking for call back. Will task to call again. Returned call to JUICE Gutierrez who was asking if Dr Ordaz willing to sign papers for home physical therapy, advised her PCP is aware pt recently in ED and sent home with services. No evaluation performed yet, [facility] to fax over any orders needed. No further questions. * Telephone Encounter - Josephkarina StarrAp - 08/24/2024 2:22 PM EST Tc from Brenda with [facility] requesting a call back just to verify if pcp is willing to sign Physician orders. Contact Brenda at [phone] documented in this encounter Plan of Treatment Upcoming Encounters Date Type Department Care Team (Late st Contact Info) Description 09/04/2024 10:45 AM EDT Office Visit [facility] [address] [place], [place] [phone] Shannon Ordaz MD [address] [place], [place] [phone] documented as of this encounter Goals Goal Patient Goal Type Associated Problems Recent Progress Patient-Stated? Author Blood Pressure < 140/90 Blood Pressure 141/85(2024 9:27 AM EST) No Yanet Tse, PharmD Record your blood pressure once per day Blood Pressure No Meeta Tsesa, PharmD Take your medication every day Lifestyle No Tristen-Yanet Lambert, PharmD documented as of this encounter Procedures Procedure Name Priority Date/Time Associated Diagnosis Comments BASIC METABOLIC PANEL Routine 08/28/2024 10:48 AM EST MUSHTAQ (acute kidney injury) ([facility]) documented in this encounter Results * (ABNORMAL) Basic Metabolic Panel (08/28/2024 10:48 AM EST) Sodium 143 135 - 145 mmol/L [facility] Potassium 4.2 3.3 - 5.1 mmol/L [facility] Chloride 108 96 - 108 mmol/L [facility] Carbon Dioxide 28 22 - 29 mmol/L [facility] Anion Gap 11(L) 12 - 20 [facility] Urea Nitrogen (BUN) 17(H) 9 - 16 mg/dL [facility] Creatinine, Serum 1.06 0.5 - 1.4 mg/dL [facility] Estimated Glomerular Filt Rate 52 [facility] Comment:Chronic Kidney Disea se: Estimated GFR < 60 mL/min/1.74o0Khvaps Kidney Disease: Estimated GFR < 15 mL/min/1.73m2 Glucose 94 60 - 115 mg/dL [facility] Calcium 9.4 8.4 - 10.2 mg/dL [facility] Blood Venous blood specimen / Unknown 08/28/2024 10:48 AM EST 08/28/2024 10:48 AM EST Shannon Ordaz MD LAB BLOOD ORDERABLES Fin al Result [facility] [address] [place] [phone] [phone] documented in this encounter Visit Diagnoses Diagnosis MUSHTAQ (acute kidney injury) (CMS/HCC) documented in this encounter Additional Health Concerns Assessment Noted Time PHQ-9 Depression Total Score: 2 11/15/19 24 11:12 AM EDT documented as of this encounter Care Teams Bow Making Machine Operator Relationship Specialty Start Date End Date Shannon Ordaz MD [address] [place] [phone] PCP - General Family Medicine 06/11/19 Benjie Pineda FNP [address] [place] [phone] Nurse Practitioner Family Medicine 05/23/23 documented as of this encounter
--- OUTSIDE RECORDS SUMMARY | 2024-08-29 16:06 | XMS_ITS | Clinical Summary ---
Author Organization [facility] Address [address] [place] [address] Phone Care Team Providers Care V Belt Skiver Name Role Phone Shannon Ordaz MD Primary Care Provider + [phone] Allergies No known active allergies Medications aspirin [...] EST - 08/23/2024 1:19 PM EST Emergency [facility] Unit [address] [place] [phone] Lito Redding MD Bukalo, Nermina, MD Bell, Alistair A, MD MUSHTAQ (acute kidney injury) ([facility]) (Primary Dx); Generalized weakness Discharge Disposition: Home [...] 08/23/2025 08/23/2024 Hypertension/CHF/CAD Annual BMP Blood Test 08/28/2025 08/28/2024, 08/23/2024, 08/22/2024, Additional history exists DTaP,Tdap,and Td Vaccines (2 [...] K/mcL LAB HEMETOLOGY METHOD 08/23/2024 6:39 AM [facility] RBC 3.80 3.80 - 4.80 M/mcL LAB HEMETOLOGY METHOD 08/23/2024 6:39 AM [facility] Hemoglobin 10.6(L) 11.5 - 16.0 g/dL LAB HEMETOLOGY METHOD 08/23/2024 6:39 AM [facility] Hematocrit 32.5(L) 35.0 - 47.0 % LAB HEMETOLOGY METHOD 08/23/2024 6:39 AM [facility] MCV 85.1 79.0 - 98.0 FL LAB HEMETOLOGY METHOD 08/23/2024 6:39 AM [facility] MCH 27.7 27.0 - 32.0 pcg LAB HEMETOLOGY METHOD 08/23/2024 6:39 AM [facility] MCHC 32.6 32.0 - 37.0 g/dL LAB HEMETOLOGY METHOD 08/23/2024 6:39 AM [facility] RDW 14.2 11.0 - 15.0 % LAB HEMETOLOGY METHOD 08/23/2024 6:39 AM [facility] Platelets 134 130 - 400 K/mcL LAB HEMETOLOGY METHOD 08/23/2024 6:39 AM [facility] MPV 14.0(H) 7.0 - 11.0 FL LAB HEMETOLOGY METHOD 08/23/2024 6:39 AM [facility] NRBC 0.0 <1.0 % LAB HEMETOLOGY METHOD 08/23/2024 6:39 AM [facility] NRBC Absolute 0.00 <0.10 K/mcL LAB HEMETOLOGY METHOD 08/23/2024 6:39 AM [facility] Neutrophils Relative 72.0 % LAB HEMETOLOGY METHOD 08/23/2024 6:39 AM [facility] Lymphocytes Relative 13.4 % LAB HEMETOLOGY METHOD 08/23/2024 6:39 AM [facility] Monocytes Relative 9.2 % LAB HEMETOLOGY METHOD 08/23/2024 6:39 AM [facility] Eosinophils Relative 4.8 % LAB HEMETOLOGY METHOD 08/23/2024 6:39 AM [facility] Basophils Relative 0.3 % LAB HEMETOLOGY METHOD 08/23/2024 6:39 AM [facility] Immature Granulocytes Relative 0.3 % LAB HEMETOLOGY METHOD 08/23/2024 6:39 AM EST [facility] Neutrophils Absolute 4.45 1.50 - 7.00 K/mcL LAB HEMETOLOGY METHOD 08/23/2024 6:39 AM EST [facility] Lymphocytes Absolute 0.83(L) 1.00 - 5.00 K/mcL LAB HEMETOLOGY METHOD 08/23/2024 6:39 AM EST [facility] Monocytes Absolute 0.57 0.20 - 1.00 K/mcL LAB HEMETOLOGY METHOD 08/23/2024 6:39 AM EST [facility] Eosinophils Absolute 0.30 0.00 - 0.50 K/mcL LAB HEMETOLOGY METHOD 08/23/2024 6:39 AM [facility] Basophils Absolute 0.02 0.00 - 0.20 K/mcL LAB HEMETOLOGY METHOD 08/23/2024 6:39 AM [facility] Immature Granulocytes Absolute 0.02 0.00 - 0.03 K/mcL LAB HEMETOLOGY METHOD 08/23/2024 6:39 AM [facility] Blood Venous blood specimen / Unknown Venipuncture / Unknown 08/23/2024 5:26 AM EST 08/23/2024 6:14 AM EST Katelin Reese AMPHIBIOUS OPERATIONS OFFICER LAB BLOOD ORDERABLES Final Res ult [facility] [address] [place] [address], * Magnesium (08/23/2024 5:26 AM EST) Only the most recent of2 resultswithin the time period is included. Magnesium 2.4 1.9 - 2.6 mg/dL LAB CHEMISTRY METHOD 08/23/2024 7:21 AM EST [facility] Blood Venous blood specimen / Unknown Venipuncture / Unknown 08/23/2024 5:26 AM EST 08/23/2024 6:13 AM EST us Katelin Reese AMPHIBIOUS OPERATIONS OFFICER LAB BLOOD ORDERABLES Final Res ult [facility] [address] [place] [address], [place] [phone] * (ABNORMAL) Basic metabolic panel (08/23/2024 5:26 AM EST) Only the most recent of2 resultswithin the time period is included. Sodium 138 133 - 145 mmol/L LAB CHEMISTRY METHOD 08/23/2024 7:27 AM [facility] Potassium 4.2 3.5 - 5.5 mmol/L LAB CHEMISTRY METHOD 08/23/2024 7:27 AM [facility] Chloride 107 96 - 110 mmol/L LAB CHEMISTRY METHOD 08/23/2024 7:27 AM [facility] CO2 26 21 - 32 mmol/L LAB CHEMISTRY METHOD 08/23/2024 7:27 AM [facility] Anion Gap 5 3 - 11 LAB CHEMISTRY METHOD 08/23/2024 7:27 AM [facility] Glucose 104(H) 70 - 100 mg/dL LAB CHEMISTRY METHOD 08/23/2024 7:27 AM [facility] BUN 27(H) 5 - 25 mg/dL LAB CHEMISTRY METHOD 08/23/2024 7:27 AM [facility] Creatinine 1.09 0.50 - 1.10 mg/dL LAB CHEMISTRY METHOD 08/23/2024 7:27 AM [facility] eGFR 56(L) >=60 mL/min/1. 73m2 LAB CHEMISTRY METHOD 08/23/2024 7:27 AM [facility] Comment:Calculation based on the??Chronic Kidney Disease Epidemiology Collaboration (CKD-EPI) equation refit??without adjustment for race. BUN/Creatinine Ratio 24.8 LAB CHEMISTRY METHOD 08/23/2024 7:27 AM [facility] Calcium 8.8 8.5 - 10.5 mg/dL LAB CHEMISTRY METHOD 08/23/2024 7:27 AM [facility] Blood Venous blood specimen / Unknown Venipuncture / Unknown 08/23/2024 5:26 AM EST 08/23/2024 6:13 AM EST us Elizabeth Templeton MD LAB BLOOD ORDERABLES Final Res ult [facility] [address] [place] [address], [place] [phone] * Urinalysis with reflex microscopic and culture (08/22/2024 9:38 AM EST) Specific [place] Urine 1.016 1.003 - 1.030 LAB URINALYSIS - AUTOMATED METHOD 08/22/2024 10:03 AM [facility] pH, Urine 5.5 5.0 - 8.0 pH LAB URINALYSIS - AUTOMATED METHOD 08/22/2024 10:03 AM [facility] Leukocytes, Urine Negative Negative LAB URINALYSIS - AUTOMATED METHOD 08/22/2024 10:03 AM [facility] Nitrite, Urine Negative Negative LAB URINALYSIS - AUTOMATED METHOD 08/22/2024 10:03 AM [facility] Protein, Urine Negative <=Trace mg/dL LAB URINALYSIS - AUTOMATED METHOD 08/22/2024 10:03 AM [facility] Glucose, Urine Negative Negative mg/dL LAB URINALYSIS - AUTOMATED METHOD 08/22/2024 10:03 AM [facility] Ketones, Urine Negative Negative mg/dL LAB URINALYSIS - AUTOMATED METHOD 08/22/2024 10:03 AM [facility] Urobilinogen, Urine 0.2 0.2 - 1.0 mg/dL LAB URINALYSIS - AUTOMATED METHOD 08/22/2024 10:03 AM [facility] Bilirubin, Urine Negative Negative LAB URINALYSIS - AUTOMATED METHOD 08/22/2024 10:03 AM [facility] Blood, Urine Negative Negative LAB URINALYSIS - AUTOMATED METHOD 08/22/2024 10:03 AM [facility] Urine Urine specimen obtained by clean catch procedure / Unknown Non-blood Collection / Unknown 08/22/2024 9:38 AM EST 08/22/2024 9:58 AM EST us Lito Redding MD LAB URINE ORDERABLES Final Resu lt Performing Organization Address City/[facility]/ZIP Co de Phone Number [facility] [address] [place] [address], [place] [phone] * Purvis urine culture tube (08/22/2024 9:38 AM EST) [facility] Extra Tube Hold for add-ons. 08/22/2024 11:01 AM [facility] Comment:Auto resulted. Urine Urine specimen obtained by clean catch procedure / Unknown Non-blood Collection / Unknown 08/22/2024 9:38 AM EST 08/22/2024 9:58 AM EST us Lito Redding MD LAB URINE ORDERABLES Final Resu lt [facility] [address] [place] [address], [place] [phone] * Respiratory virus panel molecular study (08/22/2024 9:07 AM EST) Pathologist [facility] Adenovirus Detection by PCR Not Detected Not Detected LAB MICROBIOLOGY METHOD 08/22/2024 10:56 AM [facility] Influenza A PCR Not Detected Not Detected LAB MICROBIOLOGY METHOD 08/22/2024 10:56 AM [facility] Influenza B PCR Not Detected Not Detected LAB MICROBIOLOGY METHOD 08/22/2024 10:56 AM [facility] Coronavirus 229E Not Detected Not Detected LAB MICROBIOLOGY METHOD 08/22/2024 10:56 AM [facility] Coronavirus HKU1 Not Detected Not Detected LAB MICROBIOLOGY METHOD 08/22/2024 10:56 AM [facility] Coronavirus OC43 Not Detected Not Detected LAB MICROBIOLOGY METHOD 08/22/2024 10:56 AM [facility] Coronavirus NL63 Not Detected Not Detected LAB MICROBIOLOGY METHOD 08/22/2024 10:56 AM [facility] Parainfluenza Virus 1 Not Detected Not Detected LAB MICROBIOLOGY METHOD 08/22/2024 10:56 AM [facility] Parainfluenza Virus 2 Not Detected Not Detected LAB MICROBIOLOGY METHOD 08/22/2024 10:56 AM [facility] Parainfluenza Virus 3 Not Detected Not Detected LAB MICROBIOLOGY METHOD 08/22/2024 10:56 AM [facility] Parainfluenza Virus 4 Not Detected Not Detected LAB MICROBIOLOGY METHOD 08/22/2024 10:56 AM [facility] RSV PCR Not Detected Not Detected LAB MICROBIOLOGY METHOD 08/22/2024 10:56 AM [facility] Human Metapneumovirus A and B Not Detected Not Detected LAB MICROBIOLOGY METHOD 08/22/2024 10:56 AM [facility] Rhinovirus/Entero virus Not Detected Not Detected LAB MICROBIOLOGY METHOD 08/22/2024 10:56 AM [facility] Bordetella pertussis Not Detected Not Detected LAB MICROBIOLOGY METHOD 08/22/2024 10:56 AM [facility] Bordetella parapertussis Not Detected Not Detected LAB MICROBIOLOGY METHOD 08/22/2024 10:56 AM [facility] Mycoplasma pneumo by PCR Not Detected Not Detected LAB MICROBIOLOGY METHOD 08/22/2024 10:56 AM EST [facility] Chlamydia pneumoniae Not Detected Not Detected LAB MICROBIOLOGY METHOD 08/22/2024 10:56 AM EST [facility] SARS COV-2 Not Detected Not Detected LAB MICROBIOLOGY METHOD 08/22/2024 10:56 AM EST [facility] Swab Both anterior nares / Unknown Non-blood Collection / Unknown 08/22/2024 9:07 AM EST 08/22/2024 9:52 AM EST Narrative [facility] - 08/22/2024 10:56 AM EST Testing was performed using the [place] Respiratory Pathogen PCR Assay. All results must [...] MICROBIOLOGY - GENERAL ORDER SMILEY Final Result [facility] [address] [place] [address], * XR Lumbar Spine 2-3 Views (08/22/2024 [...] Signed Date: 08/22/2024 09:13 ET Workstation ID: [id number] Transcribed By: Self Edit Transcribed Date: 08/22/2024 [...] Signed Date: 08/22/2024 09:13 ET Workstation ID: [id number] Transcribed By: Self Edit Transcribed Date: 08/22/2024 [...] Signed Date: 08/22/2024 09:13 ET Workstation ID: [id number] Transcribed By: Self Edit Transcribed Date: 08/22/2024 [...] Signed Date: 08/22/2024 09:13 ET Workstation ID: [id number] Transcribed By: Self Edit Transcribed Date: 08/22/2024 [...] Signed Date: 08/22/2024 08:58 ET Workstation ID: [id number] Transcribed By: Self Edit Transcribed Date: 08/22/2024 [...] Signed Date: 08/22/2024 08:58 ET Workstation ID: [id number] Transcribed By: Self Edit Transcribed Date: 08/22/2024 08:50 ET Ernst PURVIS IMG CT PROCEDURES Final Result * ECG 12 lead (08/22/2024 7:53 AM EST) Ventricular Rate ECG 79 BPM GEMUSE Atrial Rate 79 BPM GEMUSE P-R Interval 178 ms GEMUSE QRS Duration 98 ms GEMUSE Q-T Interval 386 ms GEMUSE QTc 442 ms GEMUSE P Wave [place] 71 degrees GEMUSE R [place] 54 degrees GEMUSE T [place] 57 degrees GEMUSE ECG Interpretation Normal sinus rhythm When compared with ECG of 24-APR-2024 05:50, No significant change was found Confirmed by INNA JENSEN ([id number]) on 08/22/2024 8:02:38 PM GEMUSE 08/22/2024 7:53 AM EST 08/22/2024 8:02 PM EST us Lito Redding MD ECG ORDERABLES Final Result Performing Organization Address City/[facility]/ZIP Co de Phone Number GEMUSE * Alanine aminotransferase (08/22/2024 7:37 AM EST) ALT (SGPT) 20 10 - 60 unit/L LAB CHEMISTRY METHOD 08/22/2024 9:06 AM EST [facility] Blood Venous blood specimen / Unknown Venipuncture / Unknown 08/22/2024 7:37 AM EST 08/22/2024 8:33 AM EST us Ernst PURVIS LAB BLOOD ORDERABLES Final Resul t [facility] [address] [place] [address], [place] [phone] * Aspartate aminotransferase (08/22/2024 7:37 AM EST) AST (SGOT) 15 10 - 42 unit/L LAB CHEMISTRY METHOD 08/22/2024 9:06 AM EST [facility] Blood Venous blood specimen / Unknown Venipuncture / Unknown 08/22/2024 7:37 AM EST 08/22/2024 8:33 AM EST [facility] LAB BLOOD ORDERABLES Final Resul t Performing Organization Address [facility] de Phone Number [facility] [address] [place] [address], [place] [phone] * (ABNORMAL) Alkaline phosphatase (08/22/2024 7:37 AM EST) Alkaline Phosphatase 123(H) 42 - 121 unit/L LAB CHEMISTRY METHOD 08/22/2024 9:06 AM EST [facility] Blood Venous blood specimen / Unknown Venipuncture / Unknown 08/22/2024 7:37 AM EST 08/22/2024 8:33 AM EST [facility] LAB BLOOD ORDERABLES Final Resul t Performing Organization Address [facility] de Phone Number [facility] [address] [place] [address], [place] [phone] * Bilirubin, total (08/22/2024 7:37 AM EST) Total Bilirubin 0.2 0.0 - 1.4 mg/dL LAB CHEMISTRY METHOD 08/22/2024 9:06 AM EST [facility] Blood Venous blood specimen / Unknown Venipuncture / Unknown 08/22/2024 7:37 AM EST 08/22/2024 8:33 AM EST [facility] LAB BLOOD ORDERABLES Final Resul t Performing Organization Address [facility] Co de Phone Number [facility] [address] [place] [address], [place] [phone] from Last 3 Months Insurance MEDICAID - [place] MEDICARE Advance Directives Documents on File Type Date Recorded Patient Call Box Wirer Expl [facility] Health Care Decision (hx) 04/26/2024 AD SANDERSON [...] currently active code status orders. Care Teams V Belt Skiver Relationship Specialty Start Date End Date Shannon Odraz MD [address] [place] [phone] PCP - General Internal Medicine 08/22/24
--- OUTSIDE RECORDS SUMMARY | 2024-08-29 16:06 | XMS_ITS | Encounter Summary ---
Author Organization [employer] Address [address] [facility] 7t [place] [address] Care Team Providers Care Mud Engineer Name Role Phone Shannon Ordaz MD Primary Care Provider + Benjie Pineda Unavailable Unavailable Reason for Visit * Reason Comments Med Refill Encounter Details Date Type Department Care Team ([facility] st Contact Info) Description 08/30/2023 Refill [facility] MED & PEDS [address] [place] [address] Shannon Ordaz MD [address] [place] [address] Social History Tobacco Use Types Packs/Day Years [...] Description 09/04/2024 10:45 AM EDT Office Visit [facility] MEDICINE [address] [place] [address] Shannon Ordaz MD [address] [place] [address] documented as of this encounter Visit Diagnoses Not on filedocumented in this encounter Additional Health Concerns Assessment Noted Time PHQ-9 Depression Total Score: 2 08/02/19 24 9:41 AM EST documented as of this encounter Care Teams Mud Engineer Relationship Specialty Start Date End Date Shannon Ordaz MD [address] [place] [phone] PCP - General Family Medicine 06/11/19 Benjie Pineda FNP [address] [place] [address] Nurse Practitioner Family Medicine 05/23/23 [facility] 04/25/24 05/03/24 documented as of this encounter
--- OUTSIDE RECORDS SUMMARY | 2024-08-29 16:06 | XMS_ITS | Encounter Summary ---
Author Organization [employer] Address [address] [facility] 7t [place] [address] Care Team Providers Care Professor Of Biology Name Role Phone Shannon Ordaz MD Primary Care Provider + Benjie Pineda Unavailable Unavailable Reason for Visit * Reason Onset Date Comments Hospital Follow-up 03/22/2024 Encounter Details Date Type Department Care Team ([facility] st Contact Info) Description 03/22/2024 Telephone [facility] MEDICINE [address] [place], [place] [phone] Shannon Ordaz MD [address] [place], [place] [phone] Hospital Follow-up Social History Tobacco Use Types [...] from pt requesting a HDF appt. Hospital: [facility] Date of admission: 03/17/24 Discharge date: 03/21/24 Diagnosed: diarrhea and rectal bleeding documented in this encounter Plan of Treatment Upcoming Encounters Date Type Department Care Team (Late st Contact Info) Description 09/04/2024 10:45 AM EDT Office Visit [facility] MEDICINE [address] [place] [phone] Shannon Ordaz MD [address] [place] [address] documented as of this encounter Goals Goal [...] documented as of this encounter Care Teams Professor Of Biology Relationship Specialty Start Date End Date Shannon Ordaz MD [address] [place] [address] PCP - General Family Medicine 06/11/19 Benjie Pineda FNP [address] [place] [address] Nurse Practitioner Family Medicine 05/23/23 [facility] 04/25/24 05/03/24 documented as of this encounter
--- OUTSIDE RECORDS SUMMARY | 2024-08-29 16:06 | XMS_ITS | Encounter Summary ---
Author Organization [employer] Address [address] [facility] 7t [place] [address] Care Team Providers Care Process Equipment Operator Name Role Phone Shannon Ordaz MD Primary Care Provider + Benjie Pineda Unavailable Unavailable Encounter Details Date Type Department Care Team (Late st Contact Info) Description 07/21/[address] [facility] MEDICINE [address] [place], [place] [phone] Shannon Ordaz MD [address] [place], [place] [phone] Social History Tobacco Use Types Packs/Day Years [...] [facility] [address] [place], [place] [phone] Shannon Ordaz MD [address] [place] [phone] documented as of this encounter Procedures Procedure Name Priority Date/Time Associated Diagnosis Comments COLONOSCOPY Routine 07/19/2023 documented in this encounter Results * (ABNORMAL) Colonoscopy (07/19/2023) Colonoscopy Abnormal(A ) Normal [facility] Comment:TA Shannon Ordaz MD HEALTH MAINTENANCE Edite d Result - Final [facility] [address] [place] [address] [phone] documented in this encounter Visit Diagnoses Not on filedocumented in this encounter Additional Health Concerns Assessment Noted Time PHQ-9 Depression Total Score: 3 05/31/20 23 10:47 AM EST documented as of this encounter Care Teams Process Equipment Operator Relationship Specialty Start Date End Date Shannon Ordaz MD [address] [place], [place] [phone] PCP - General Family Medicine 06/11/19 Benjie Pineda FNP [address] [place] [address] Nurse Practitioner Family Medicine 05/23/23 [facility] 04/25/24 05/03/24 documented as of this encounter
--- OUTSIDE RECORDS SUMMARY | 2024-08-29 16:06 | XMS_ITS | Encounter Summary ---
Author Organization [employer] Address [address] [place] [address] 7[address] [place] [address] Care Team Providers Care Criminal Defense Attorney Name Role Phone Shannon Ordaz MD Primary Care Provider + Benjie Pineda Unavailable Unavailable Reason for Visit * Reason Onset Date Comments FYI 03/22/2024 Encounter Details Date Type Department Care Team ([facility] st Contact Info) Description 03/22/2024 Telephone [facility] MEDICINE [address] [place], [place] [phone] Shannon Ordaz MD [address] [place], [place] [phone] FY Social History Tobacco Use Types Packs/Day [...] 8:53 AM EDT Tc from [facility] calling to inform the provider attempted to start services on 03/22 however patient refused due to having a Cardiology appt will re attempt on 03/23 to start services documented in this encounter Plan of Treatment Upcoming Encounters Date Type Department Care Team (Late st Contact Info) Description 09/04/2024 10:45 AM EDT Office Visit [facility] MEDICINE [address] [place] [address] Shannon Ordaz MD [address] [place] [address] documented as of this encounter Goals Goal [...] documented as of this encounter Care Teams Criminal Defense Attorney Relationship Specialty Start Date End Date Shannon Ordaz MD [address] [place] [phone] PCP - General Family Medicine 06/11/19 Benjie Pineda FNP [address] [place] [phone] Nurse Practitioner Family Medicine 05/23/23 [facility] 04/25/24 05/03/24 documented as of this encounter
--- OUTSIDE RECORDS SUMMARY | 2024-08-29 16:06 | XMS_ITS | Encounter Summary ---
Author Organization [employer] Address [address] [place] [address] 7t [place] [address] Care Team Providers Care Shuttle Hand Name Role Phone Shannon Ordaz MD Primary Care Provider + Benjie Pineda Unavailable Unavailable Reason for Visit * Reason Onset Date Comments Appointment Request 08/26/2022 Encounter Details Date Type Department Care Team (Late st Contact Info) Description 08/26/[address] [facility] MEDICINE [address] [place], [place] [phone] Shannon Ordaz MD [address] [place], [place] [phone] Appointment Request Social History Tobacco Use Types [...] labs/htn RCL ) Please contact pt at [phone] documented in this encounter Plan of Treatment Upcoming Encounters Date Type Department Care Team (Late st Contact Info) Description 09/04/2024 10:45 AM EDT Office [address] [facility] MEDICINE [address] [place] [address] Shannon Ordaz MD [address] [place] [address] documented as of this encounter Visit Diagnoses Not on filedocumented in this encounter Additional Health Concerns Assessment Noted Time PHQ-9 Depression Total Score: 9 08/19/19 23 11:05 AM EST documented as of this encounter Care Teams Shuttle Hand Relationship Specialty Start Date End Date Shannon Ordaz MD [address] [place] [address] PCP - General Family Medicine 06/11/19 Benjie Pineda FNP [address] [place] [phone] Nurse Practitioner Family Medicine 05/23/23 [facility] 04/25/24 05/03/24 documented as of this encounter
--- OUTSIDE RECORDS SUMMARY | 2024-08-29 16:06 | XMS_ITS | Encounter Summary ---
Author Organization [employer] Address [address] [place] [address] 7 [place] [address] Care Team Providers Care Small Brake Form Operator Name Role Phone Shannon Ordaz MD Primary Care Provider + Benjie Pineda Unavailable Unavailable Reason for Visit * Reason Onset Date Comments Referral 08/26/2022 Encounter Details Date Type Department Care Team (Late st Contact Info) Description 08/26/2022 Telephone [facility] [address] [place], [place] [phone] Shannon Ordaz MD [address] [place], [place] [phone] Referral Social History Tobacco Use Types Packs/Day [...] 3:08 PM EST TC returned to pt [phone] to inform pt provider has placed PT referral today. Pt verbalized understanding. RN will send message to mortgage specialist to ensure referral gets processed as pt's appt is on 09/03/22. * Telephone Encounter - Alta Daniel - 08/30/2022 12:03 PM EST Tc from pt checking status on physical therapy referral . * Telephone Encounter - Gumaro Storm - 08/26/2022 4:28 PM EST Tc from pt returning call regarding missing information she didn't have for the referral needed forphysical therapy. Location: [address] [address] Phone #: [phone] Please contact pt at [phone] documented in this encounter Plan of Treatment Upcoming Encounters Date Type Department Care Team (Late st Contact Info) Description 09/04/2024 10:45 AM EDT Office Visit [facility] [address] [place] [address] Shannon Ordaz MD [address] [place] [address] documented as of this encounter Visit Diagnoses Not on filedocumented in this encounter Additional Health Concerns Assessment Noted Time PHQ-9 Depression Total Score: 9 08/19/19 23 11:05 AM EST documented as of this encounter Care Teams Small Brake Form Operator Relationship Specialty Start Date End Date Shannon Ordaz MD [address] [place] [address] PCP - General Family Medicine 06/11/19 Benjie Pineda FNP [address] [place] [address] Nurse Practitioner Family Medicine 05/23/23 [facility] 04/25/24 05/03/24 documented as of this encounter
--- OUTSIDE RECORDS SUMMARY | 2024-08-29 16:07 | XMS_ITS | Encounter Summary ---
Author Organization [employer] Address [address] [facility] 7t [place] [address] Care Team Providers Care Supervisor Mail Carriers Name Role Phone Shannon Ordaz MD Primary Care Provider + Benjie Pineda Unavailable Unavailable Encounter Details Date Type Department Care Team (Late st Contact Info) Description 04/24/2024 Orders Only [facility] [address] [place], [place] [phone] ProviderYarelis MD Social History Tobacco Use Types [...] 09/04/2024 10:45 AM EDT Office Visit [facility] MED[facility]INE [address] [place] [phone] Shannon Ordaz MD 230 [place] [address] documented as of this encounter Goals Goal [...] documented as of this encounter Care Teams Supervisor Mail Carriers Relationship Specialty Start Date End Date Shannon Ordaz MD [address] [place] [address] PCP - General Family Medicine 06/11/19 Benjie Pineda FNP [address] [place] [address] Nurse Practitioner Family Medicine 05/23/23 [facility] 04/25/24 05/03/24 documented as of this encounter
--- OUTSIDE RECORDS SUMMARY | 2024-08-29 16:07 | XMS_ITS | Encounter Summary ---
Author Organization [employer] Address [address] [facility] 7t [place] [address] Care Team Providers Care Transportation Security Screener Name Role Phone Shannon Ordaz MD Primary Care Provider + Benjie Pineda Unavailable Unavailable Encounter Details Date Type Department Care Team (Late st Contact Info) Description 11/23/2023 Orders Only [facility]INE [address] [place] [address] ProviderYarelis MD Social History Tobacco Use Types [...] Description 09/04/2024 10:45 AM EDT Office Visit [facility]INE [address] [place] [phone] Shannon Ordaz MD [address] [place] [phone] documented as of this encounter Procedures Procedure [...] documented as of this encounter Care Teams Transportation Security Screener Relationship Specialty Start Date End Date Shannon Ordaz MD [address] [place] [address] PCP - General Family Medicine 06/11/19 Benjie Pineda FNP [address] [place] [address] Nurse Practitioner Family Medicine 05/23/23 [facility] 04/25/24 05/03/24 documented as of this encounter
--- OUTSIDE RECORDS SUMMARY | 2024-08-29 16:07 | XMS_ITS | Encounter Summary ---
Author Organization [employer] Address [address] [facility] 7t [place] [address] Care Team Providers Care Director Information Name Role Phone Shannon Ordaz MD Primary [...] Description 09/04/2024 10:45 AM EDT Office Visit [facility] MEDICINE 230 [place], [place] [phone] Sahnnon Ordaz MD [address] [place], [place] [phone] documented as of this encounter Goals Goal [...] EST) Calcium 9.1 8.4 - 10.2 mg/dL [facility] 08/07/2024 1:21 PM EST 08/07/2024 1:21 PM EST us Generic External Data Provider LAB BLOOD ORDERAB LES Final Result Performing Organization Address [facility] de Phone Number [facility] [address] [place] [phone] * Creatinine, Serum (08/07/2024 1:21 PM EST) Creatinine, Serum 1.13 0.5 - 1.4 mg/dL [facility] Estimated Glomerular Filt Rate 48 [facility] Comment:Chronic Kidney Disea se: Estimated GFR < 60 mL/min/1.36m3Odlcue Kidney Disease: Estimated GFR < 15 mL/min/1.73m2 08/07/2024 1:21 PM EST 08/07/2024 1:21 PM EST us Generic External Data Provider LAB BLOOD ORDERAB LES Final Result Performing Organization Address [facility] de Phone Number [facility] [address] [place] [phone] * BUN (Blood Urea Nitrogen) (08/07/2024 1:21 PM EST) Urea Nitrogen (BUN) 15 9 - 16 mg/dL [facility] 08/07/2024 1:21 PM EST 08/07/2024 1:21 PM EST Generic External Data Provider LAB BLOOD ORDERAB LES Final Result Performing Organization Address [facility] de Phone Number [facility] [address] [place] [phone] * Electrolyte Panel (08/07/2024 1:21 PM EST) Sodium 143 135 - 145 mmol/L [facility] Potassium 4.5 3.3 - 5.1 mmol/L [facility] Chloride 107 96 - 108 mmol/L [facility] Carbon Dioxide 29 22 - 29 mmol/L [facility] Anion Gap 12 12 - 20 [facility] 08/07/2024 1:21 PM EST 08/07/2024 1:21 PM EST us Generic External Data Provider LAB BLOOD ORDERAB LES Final Result Performing Organization Address City/State/[facility] de Phone Number [facility] [address] [place] [phone] [phone] documented in this encounter Visit Diagnoses Not on filedocumented in this encounter Additional Health Concerns Assessment Noted Time PHQ-9 Depression Total Score: 2 11/15/19 24 11:12 AM EDT documented as of this encounter Care Teams Director Information Relationship Specialty Start Date End Date Shannon Ordaz MD [address] [place] [address] PCP - General Family Medicine 06/11/19 Benjie Pineda FNP [address] [place] [address] Nurse Practitioner Family Medicine 05/23/23 documented as of this encounter
--- OUTSIDE RECORDS SUMMARY | 2024-08-29 16:07 | XMS_ITS | Encounter Summary ---
Author Organization [employer] Address [address] [place] [address] 7t [place] [address] Care Team Providers Care Second Vp Hr Assessment Name Role Phone Shannon Ordaz MD Primary Care Provider + Benjie Pineda Unavailable Unavailable Reason for Visit * Reason Onset Date Comments Care Coordination 08/27/2024 Encounter Details Date Type Department Care Team ([facility] st Contact Info) Description 08/27/2024 Telephone [facility] [address] [place], [place] [phone] Shannon Ordaz MD [address] [place], [place] [phone] Care Coordination Social History Tobacco Use Types [...] 12:34 PM EST TC placed to patient [phone] in regards to below message. Patient reports she is supposed to be receiving PT in the home however she is not sure which agency her in home PT will be from. Patientreports they called her son to schedule the visit however she is not sure what time/day they will be coming. Patient confirms she has an appointment scheduled with her food safety technician in approx 3 months, RN advised patient to call nephrology office to inform of hospital visit and schedule a sooner appointment. Patient confirms she has food safety technician phone number. Patient reports her weakness continueshowever [...] 1:29 PM EST ----- Patient hospitalized at [facility] on 08/22/2024 due to weakness/MUSHTAQ/dehydration secondary to [...] AM EDT Office Visit [facility] [address] [place] [phone] Shannon Ordaz MD [address] [place] [address] documented as of this encounter Goals Goal [...] documented as of this encounter Care Teams Second Vp Hr Assessment Relationship Specialty Start Date End Date Shannon Ordaz MD [address] [place] [address] PCP - General Family Medicine 06/11/19 Benjie Pineda FNP [address] [place] [address] Nurse Practitioner Family Medicine 05/23/23 documented as of this encounter
--- OUTSIDE RECORDS SUMMARY | 2024-08-29 16:07 | XMS_ITS | Encounter Summary ---
Author Organization [employer] Address [address] [place] [address] 7t [place] [address] Care Team Providers Care Anesthesia Technician Name Role Phone Shannon Ordaz MD Primary Care Provider + Benjie Pineda Unavailable Unavailable Encounter Details Date Type Department Care Team (Late st Contact Info) Description 03/01/2023 Abstract [facility] MED[facility]INE [address] [place] [address] [phone] Shannon Ordaz MD [address] [place] [address] [phone] Social History Tobacco Use Types Packs/Day Years [...] Description 09/04/2024 10:45 AM EDT Office Visit [facility] [address] [place] [address] [phone] Shannon Ordaz MD [address] [place] [address] [phone] documented as of this encounter Visit Diagnoses Not on filedocumented in this encounter Additional Health Concerns Assessment Noted Time PHQ-9 Depression Total Score: 8 02/02/20 23 11:15 AM EDT documented as of this encounter Care Teams Anesthesia Technician Relationship Specialty Start Date End Date Shannon Ordaz MD [address] [place] [address] PCP - General Family Medicine 06/11/19 Benjie Pineda FNP [address] [place] [address] Nurse Practitioner Family Medicine 05/23/23 [facility] 04/25/24 05/03/24 documented as of this encounter
--- OUTSIDE RECORDS SUMMARY | 2024-08-29 16:07 | XMS_ITS | Encounter Summary ---
Author Organization [employer] Address [address] [place] [address] 7t [place] [address] Care Team Providers Care Remote Pilot Operator Name Role Phone Shannon Ordaz MD Primary Care Provider + Benjie Pineda Unavailable Unavailable Reason for Visit * Reason Comments Transition Of Care (Tcm) HDF- Scheduled Encounter Details Date Type Department Care Team ([facility] st Contact Info) Description 08/27/2024 Patient Outreach [facility] [address] [place], [place] [phone] Shannon Ordaz MD [address] [place], [place] [phone] Transition Of Care (Tcm) (HDF- Scheduled) Social [...] Admission/Visit 08/23/24 Date of Discharge 08/24/24 Facility [facility] Diagnosis Kidney disease Disposition Discharged Home [...] Wednesdays, and Walk-In Urgent Care Located in [facility] of [facility]. Patient provided with after-hours line for [facility], , which offer night time triage service and option to transfer to seo professional provider if needed. CC will request Discharge summary to be scanned into chart. documented in this encounter Plan of Treatment Upcoming Encounters Date Type Department Care Team (Late st Contact Info) Description 09/04/2024 10:45 AM EDT Office Visit [facility] [address] [place], [place] [phone] Shannon Ordaz MD [address] [place] [address] documented as of this encounter Goals Goal [...] documented as of this encounter Care Teams Remote Pilot Operator Relationship Specialty Start Date End Date Shannon Ordaz MD [address] [place] [address] PCP - General Family Medicine 06/11/19 Benjie Pineda FNP [address] [place] [address] Nurse Practitioner Family Medicine 05/23/23 documented as of this encounter
--- OUTSIDE RECORDS SUMMARY | 2024-08-29 16:07 | XMS_ITS | Encounter Summary ---
Author Organization [employer] Address [address] [facility] 7t [place] [address] Care Team Providers Care General Dentist Name Role Phone Shannon Ordaz MD Primary Care Provider + Benjie Pineda Unavailable Unavailable Reason for Visit * Reason Comments Med Refill Encounter Details Date Type Department Care Team (Late st Contact Info) Description 08/10/2024 Refill [facility]INE [address] [place], [place] [phone] Shannon Ordaz MD [address] [place] [address] Anxiety and depression Social History Tobacco Use [...] Description 09/04/2024 10:45 AM EDT Office Visit [facility]ICINE [address] [place] [phone] Shannon Ordaz MD [address] [place] [address] documented as of this encounter Goals Goal [...] documented as of this encounter Care Teams General Dentist Relationship Specialty Start Date End Date Shannon Ordaz MD [address] [place] [address] PCP - General Family Medicine 06/11/19 Benjie Pineda FNP [address] [place] [address] Nurse Practitioner Family Medicine 05/23/23 documented as of this encounter
--- OUTSIDE RECORDS SUMMARY | 2024-08-29 16:07 | XMS_ITS | Encounter Summary ---
Author Organization [employer] Address [address] [place] [address] 7t [place] [address] Care Team Providers Care Sales And Catering Coordinator Name Role Phone Shannon Ordaz MD Primary Care Provider + Benjie Pineda Unavailable Unavailable Reason for Visit * Reason Onset Date Comments Medication Question 11/16/2022 Encounter Details Date Type Department Care Team ([facility] st Contact Info) Description 11/16/2022 Telephone [facility] MEDICINE [address] [place], [place] [phone] Shannon Ordaz MD [address] [place], [place] [phone] Medication Question Social History Tobacco Use Types [...] were discussed however meditech reviewed and pt.'s dish stacker prescribes them. * Telephone Encounter - Alta [...] Description 09/04/2024 10:45 AM EDT Office Visit [facility] MEDICINE [address] [place] [phone] Shannon Ordaz MD [address] [place] [address] documented as of this encounter Visit Diagnoses Not on filedocumented in this encounter Additional Health Concerns Assessment Noted Time PHQ-9 Depression Total Score: 12 023 11:08 AM EDT documented as of this encounter Care Teams Sales And Catering Coordinator Relationship Specialty Start Date End Date Shannon Ordaz MD [address] [place] [address] PCP - General Family Medicine 06/11/19 Benjie Pineda FNP [address] [place] [address] Nurse Practitioner Family Medicine 05/23/23 [facility] 04/25/24 05/03/24 documented as of this encounter
--- OUTSIDE RECORDS SUMMARY | 2024-08-29 16:07 | XMS_ITS | Continuity of Care Document ---
Demographics Address [address] [facility] [place] [address] Mobile Phone Home Phone Preferred Language es Marital Status Legally Sabianist Affiliation Jew (non-Cat holic, non-specific) Race Unknown Ethnic Group or Author Organization [facility] Address [address] [address] Phone Care Team Providers Care Prevention Specialist Name Role Phone Calin Dye DO Unavailable Unavailable Advance Directives Directive Yes / No Effective Date File Name No Information Encounters Encounter Description Practice Location Reason(s) For Visit Diagnoses Date Provider [facility], [address] [place] [address], [id number], [place] tel:[phone] [address] [place] [address] No Information 2018 Hardik Layton. [address] [place] [address], [id number], [place]. tel:[phone] Family History Family Member Type Diagnosis Age [...]
--- OUTSIDE RECORDS SUMMARY | 2024-08-29 16:07 | XMS_ITS | Clinical Summary ---
Author Organization [employer] Address [address] [place] [address] [address] [place] [address] Care Team Providers Care Wardrobe Attendant Name Role Phone Shannon Ordaz MD Primary [...] every 3 hours. 15 g 024 Active liver oil-zinc oxide (Desitin) 40 % [...] for anxiety. 60 tablet 5 024 Active risperiDONE (RisperDAL) 3 MG tabletIndications [...] INTO THE AFFECTED EYE(S) FIVE TIMES DAILY Active albuterol 1.25 MG/3ML nebulizer solutionIndicatio ns:Moderate [...] MORNING AND AT BEDTIME 60 tablet Active omeprazole (PriLOSEC) [address] capsule Take 1 capsule by mouth Once per day. Active ketorolac (Acular) 0.5 % ophthalmic solution INSTILL 1 DROP AFFECTED EYE(S) THREE TIMES DAILY STARTING 2 DAYS BEFORE SURGERY, CONTINUE DIRECTED Active brimonidine (AlphaGAN) 0.2 % ophthalmic solution Administer 1 drop into the right eye 3 times daily. Active mirtazapine (Remeron) 45 MG tabletIndications :Major depressive disorder, recurrent episode with mood-congruent psychotic features (CMS/HCC) Take 1 tablet (45 mg) by mouth at bedtime. 30 tablet 025 2024 Active famotidine (Pepcid) 40 MG tablet Take 40 mg by mouth at bedtime. 023 2024 Discontinued(M ed list cleanup (will not trigger notification to Pharmacy)) aspirin 81 MG EC tabletIndications :TIA (transient ischemic attack) Take 1 tablet (81 mg) by mouth in the morning. 30 tablet 11 023 2024 Discontinued Cyanocobalamin ER ( Vitamin B-12 TR) 2000 MCG tablet controlled-releas e Take 2,000 mcg by mouth Once per day. 1 tab daily 90 tablet 3 024 2024 Discontinued(M ed list cleanup (will not trigger notification to Pharmacy)) mirtazapine (Remeron) 30 MG tabletIndications :Major depressive disorder, recurrent episode with mood-congruent psychotic features (CMS/HCC) Take 2 tablets (60 mg) by mouth at bedtime. 180 tablet 3 024 2024 Discontinued(R eorder (will not trigger notification to Pharmacy)) traMADol (Ultram) 50 MG tablet TOME PRETSON TABLETA POR V A ORAL CADA SEIS A OCHO HORAS CUANDO SEA NECESARIO PARA EL DOLOR 024 2024 Discontinued(M ed list cleanup (will not trigger notification to Pharmacy)) pantoprazole (ProtoNix) 40 MG EC tabletIndications :Cárdenas's [...] me in 2-3w. Order labs to ro lytes imbalance Advised to use cane for ambulation, use shower chair and bedside commode to prevent accidents at home. She has a [employer] to help with ADLs, I told patient to avoid any activity that can put her at risk , that otherwise is to be assisted by [employer] . Anemia 02/13/2024 History of colon polyps [...] her to call back [facility] Pain clinic to rs [...] preserved EF (last echo on 04/19/[address] [facility] showed EF 60% with no WM [...] 11:30 am, information was given to follow 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 [place] [address] Shannon Ordaz MD Transition Of Care (Tcm) (HDF- Scheduled) 08/27/2024 Telephone [facility] [address] [facility] [place] [address] Shannon Ordaz MD Hospital Follow-up 08/24/2024 Telephone [facility] [address] [facility] [place] [address] Shannon Ordaz MD Call Back Request; Appointment Request; Lab Orders 08/10/2024 Refill [facility] [address] [place] [place] [address] Shannon Ordaz MD Anxiety and depression 08/07/2024 Orders Only GENERIC EXTERNAL DATA DEPARTMENT Provider, Generic External Data 08/07/2024 Refill [facility] [address] [place] [address] Shannon Ordaz MD TIA (transient ischemic attack) 07/25/2024 9:00 AM EST Office Visit [facility] [address] [facility] [place] [address] Len Bynum MD Pre-op evaluation (Primary Dx) 07/11/2024 Refill [facility] [address] [place] [address] Shannon Ordaz MD Mixed hyperlipidemia; Anxiety and depression 07/08/2024 Refill [facility] [address] [place] [address] Shannon Ordaz MD Cárdenas's esophagus with dysplasia 06/21/2024 Telephone [facility] [address] [place] [address] Shannon Ordaz MD Pre-op Exam 06/18/2024 Refill [facility] [address] [place] [address] Shannon Ordaz MD Anxiety and depression 06/13/2024 Refill [facility] [address] [place] [address] Shannon Ordaz MD Primary hypertension 06/06/2024 Telephone [facility] OPTOMET[facility] [address] [place] [address] Raina Hathaway, OD from Last 3 Months Immunizations Name Administration Dates Next Due Influenza injectable quadriv alent IIV4 with preservative 05/17/2018 Influenza injectable quadriv alent preservative free 05/14/2022,09/24/2021,04/23/2021,03/20,04/04/2019 Influenza, IIV3, injectable 03/19/2024,1 ,03/20/2020,04/04,05/17/2018 Moderna Covid-19 Vaccine 12+ 11/25/2020,10/30/19 21 Pneumococcal [...] Description 09/04/2024 10:45 AM EDT Office Visit [facility] [address] [place] [address] Shannon Ordaz MD [address] [place] [address] Health Maintenance Due Date Last Done Comments [...] once per day Blood Pressure No Yanet Tse, PharmD Take your medication every day Lifestyle [...] EST) Sodium 143 135 - 145 mmol/L [facility] Potassium 4.2 3.3 - 5.1 mmol/L [facility] Chloride 108 96 - 108 mmol/L [facility] Carbon Dioxide 28 22 - 29 mmol/L [facility] Anion Gap 11(L) 12 - 20 [facility] Urea Nitrogen (BUN) 17(H) 9 - 16 mg/dL [facility] Creatinine, Serum 1.06 0.5 - 1.4 mg/dL [facility] Estimated Glomerular Filt Rate 52 [facility] Comment:Chronic Kidney Disea se: Estimated GFR < 60 mL/min/1.15d2Xdcagw Kidney Disease: Estimated GFR < 15 mL/min/1.73m2 Glucose 94 60 - 115 mg/dL [facility] Calcium 9.4 8.4 - 10.2 mg/dL [facility] Blood Venous blood specimen / Unknown 08/28/2024 10:48 AM EST 08/28/2024 10:48 AM EST us Shannon Ordaz MD LAB BLOOD ORDERABLES Fin al Result Performing Organization Address [facility] Co de Phone Number [facility] [address] [place] [phone] * Creatinine, Serum (08/07/2024 1:21 PM EST) Creatinine, Serum 1.13 0.5 - 1.4 mg/dL [facility] Estimated Glomerular Filt Rate 48 [facility] Comment:Chronic Kidney Disea se: Estimated GFR < 60 mL/min/1.37t1Ajmafc Kidney Disease: Estimated GFR < 15 mL/min/1.73m2 08/07/2024 1:21 PM EST 08/07/2024 1:21 PM EST us Generic External Data Provider LAB BLOOD ORDERAB LES Final Result Performing Organization Address [facility] de Phone Number [facility] [address] [place] [phone] * BUN (Blood Urea Nitrogen) (08/07/2024 1:21 PM EST) Urea Nitrogen (BUN) 15 9 - 16 mg/dL [facility] 08/07/2024 1:21 PM EST 08/07/2024 1:21 PM EST us Generic External Data Provider LAB BLOOD ORDERAB LES Final Result Performing Organization Address [facility] Co de Phone Number [facility] [address] [place] [phone] * Calcium (08/07/2024 1:21 PM EST) Pathologist [facility] Calcium 9.1 8.4 - 10.2 mg/dL [facility] 08/07/2024 1:21 PM EST 08/07/2024 1:21 PM EST us Generic External Data Provider LAB BLOOD ORDERAB LES Final Result Performing Organization Address [facility]/ZIP Co de Phone Number [facility] [address] [place] [phone] * Electrolyte Panel (08/07/2024 1:21 PM EST) [facility] Sodium 143 135 - 145 mmol/L [facility] Potassium 4.5 3.3 - 5.1 mmol/L [facility] Chloride 107 96 - 108 mmol/L [facility] Carbon Dioxide 29 22 - 29 mmol/L [facility] Anion Gap 12 12 - 20 [facility] 08/07/2024 1:21 PM EST 08/07/2024 1:21 PM EST Generic External Data Provider LAB BLOOD ORDERAB LES Final Result Performing Organization Address [facility] Phone Number [facility] [address] [place] [phone] * (ABNORMAL) Hm Colonoscopy (07/19/2023) Pathologist [facility] Colonoscopy Abnormal(A ) Normal [facility] Comment:TA Shannon Ordaz MD HEALTH MAINTENANCE Edite d Result - Final Performing Organization Address [facility] Co de Phone Number [facility] [address] [place] [phone] * Lipid Panel with Reflex to Direct LDL (06/02/2023 11:15 AM EST) Pathologist [facility] Triglycerides 80 <150 mg/dL [facility] Comment:Desirable Triglyceri de: less than 150 mg/dLBorderline High Triglyceride 150-199 mg/dLHigh Triglyceride: 200-499 mg/dLVery High Triglyceride: greater than or equal to 5OO mg/dL Cholesterol 149 <200 mg/dL [facility] Comment:Desirable Cholestero l: less than 200 mg/dLBorderline High Cholesterol: 200-239 mg/dLHigh Cholesterol: greater than 239 mg/dL LDL Cholesterol Calculated 76 <100 mg/dL [facility] Comment:Desirable LDL: less than 100 mg/dLNear Optimal/Above Optimal LDL: 110- 129 mg/dLBorderline High LDL: 130-159 mg/dLHigh LDL: 160-189 mg/dLVery High LDL: greater than or equal to 190 mg/dL HDL Cholesterol 57 >40 mg/dL [facility] Comment:Desirable HDL: great er than 40 mg/dL Note: This HDL assay may give artificially low results in patients with liver disease. Blood 06/02/2023 11:1 5 AM EST 06/02/2023 1:19 PM EST us Shannon Ordaz MD LAB BLOOD ORDERABLES Fin al Result [facility] [address] [place] [phone] * Mammography Report 1 (12/22/2021 12:08 [...] HPV mRNA E6/E7 Not Detected NOT DETECTED [facility] Comment: This test was performed using the APTIMA(R) HPV Assay ([employer] This assay detects E6/E7 viral messenger RNA (mRNA) from 14 high-risk HPV types (16,18,31,33,35,39,45,51, 52,56,58,59,66,68). For additional information please refer to: http://[employer]/faq/QFH839k7 (This link is being provided for informational/ educational purposes only.) The analytical performance characteristics of this assay have been determined by [employer] [place], [place]. The modifications have not been cleared or approved by the FDA. This assay has been validated pursuant to the CLIA regulations and is used for clinical purposes. Test Performed by [facility], [employer] [facility] [employer], [address] [place] [address] Kraig Gonzalez M.D., Ph.D., Director of Laboratories , CLIA [id number] Please note: ??Effective 03/08/2016, HPV testing will be performed using [employer]'s APTIMA test which targets mRNA. Detecting mRNA instead of DNA, as in older methods, offers significant improvements in specificity. 05/17/2018 9:40 AM EST Elsa Conner CNM HISTORICAL/NON ORDERABLE LABS Final Result [facility] Anywhere [address] from Last 3 Months or Most Recently Relevant to Health Maintenance Insurance MEDICARE Care Teams Wardrobe Attendant Relationship Specialty Start Date End Date Shannon Ordaz MD [address] [place] [phone] PCP - General Family Medicine 06/11/19 Benjie Pineda FNP [address] [place] [address] Nurse Practitioner Family Medicine 05/23/23
--- OUTSIDE RECORDS SUMMARY | 2024-08-29 16:07 | XMS_ITS | Encounter Summary ---
Author Organization [facility] Address [address] [place] [address] Care Team Providers Care Cupola Melting Supervisor Name Role Phone Shannon Ordaz MD Primary Care Provider + [phone] Reason for Visit * Reason Comments Weakness - Generalized X1 week * Auth/Cert (Routine) Specialty Diagnoses / Procedures Referred By Contac t Referred To Contact Diagnoses ARF (acute renal failure) ([facility]) Procedures . Elizabeth Templeton MD [address] [place] [address] Phone: tel: fax: [facility] Emergency [address] [place] [address] Phone: tel: Referral ID Status Reason Start Date Expiration Date Visits Re quested Visits Authorized [id number] 1 1 Encounter Details Date Type Department Care Team (Late st Contact Info) Description 08/22/2024 7:34 AM EST - 08/23/2024 1:19 PM EST Emergency [facility] Urology Unit [address] [place] [address] Lito Redding MD [address] [place] [address] Elizabeth Templeton MD [address] [place] [address] Nigel Boyle MD [address] [place] [id number] MUSHTAQ (acute kidney injury) ([facility]) (Primary Dx); Generalized weakness Discharge [...] Primary Discharge Diagnosis: ARF (acute renal failure) ([facility]) Secondary Discharge Diagnosis: Generalized weakness Discharge Disposition Home or Self Care Code Status at Discharge: Full Code - Default Hospital Course Summary Presenting Problem/History of Present Illness ARF (acute renal failure) ([facility]) [N17.9] MUSHTAQ (acute kidney injury) ([facility]) [N17.9] Generalized weakness [R53.1] Chief Complaint Patient presents with ??? Weakness - Generalized X1 week HPI 63-year-old Green[place]ic-speaking female and this interview was conducted with the assistance of the virtual asl interpreter on #[id number]. Presented to the emergency room with complaints [...] for discharge and to follow-up with her furnace cooler. Recommendrepeat BMP within 1 week. 2. Generalized [...] Signed Date: 08/22/2024 09:13 ET Workstation ID: [id number] Transcribed By: Self Edit Transcribed Date:08/22/2024 09:08 [...] Signed Date: 08/22/2024 09:13 ET Workstation ID: [id number] Transcribed By: Self Edit Transcribed Date: 08/22/2024 [...] Signed Date: 08/22/2024 08:58 ET Workstation ID: [id number] Transcribed By: Self Edit Transcribed Date: 08/22/2024 [...] deficit I spoke with the patient and daughter/COKE DRAWER HAND regarding the discharge plan. The discharge plan [...] through Care Everywhere. * Renal Failure: Acute (Greenlandic) documented in this encounter Medications at Time [...] Kadi Ritchie - 08/23/2024 1:06 PM EST [facility] Physical Therapy Evaluation & Treatment PT Discharge [...] General Family/Caregiver Present: Yes (family translated to citizen of [place] for patient) Precautions Medical Precautions: Fall Risk [...] is a 63 y.o. female admitted to [facility] on 08/22/2024. Patient Active Problem List Diagnosis [...] of Steps: 10 Prior Function Level of [place]: Independent with mobility and functional transfers Ambulation Status: Household ambulator Receives Help From: Family, valet attendant (COKE DRAWER HAND 18hrs during day and 14hrs at night per week) Indoor Mobility Assistance: Independent Stairs Assistance : Independent Prior Device Use: Walker Which is your dominant hand?: Right General Assessment 08/23/24 1100 PT Last Visit PT Received On 08/23/24 General Family/Caregiver Present Yes (family translated to citizen of [place] for patient) PT Time Calculation PT Start [...] of Steps 10 Prior Function Level of [place] Independent with mobility and functional transfers Ambulation Status Household ambulator Receives Help From Family;valet attendant (COKE DRAWER HAND 18hrs during day and 14hrs at night [...] is a 63 y.o. female admitted to [facility] on 08/22/2024 for ARF (acute renal failure) ([facility]) [N17.9] MUSHTAQ (acute kidney injury) ([facility]) [N17.9] Generalized weakness [R53.1] . Pt presents with decreased BLE strength, balance deficits, decreasedactivity tolerance, and far below functional baseline. 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 Yes Transportation [...] infectious concerns): [] Yes / [x] No Family And Consumer Education Teacher: [] Yes / [x] No If YES, Cardiac Rhythm: [] NSR, [] SB, [] ST, [] A-FIB, [] A-Flutter, [] Pacemaker, [] 1st Degree HB, [] 2nd Degree HB, [] 3rd Degree HB Reason for Family And Consumer Education Teacher: VS: Visit Vitals BP 115/76 Pulse 81 [...] order. Denies pain at this time. VSS. Greenlandic Speaking only. Able to communicate well with dental technology advisor. Family is supportive and has been at bedside. Submitted by and Phone Extension: Piper Curry Pod * Suri Koch RN - 08/22/2024 7:25 AM EST PT Green[place]ic Speaking, Triage completed with virtual healthcare interpreter. PT to ED for complaints of weaknessin [...] Detected Narrative: Testing was performed using the Ameristream Respiratory Pathogen PCR Assay. All results must [...] REFLEX MICROSCOPIC AND CULTURE - Normal Specific [place] Urine 1.016 pH, Urine 5.5 Leukocytes, Urine [...] Procedure Abnormality Status --------- ------ CBC auto differential[[id number]] Abnormal Final result Please view results for these tests on the individual orders. URINALYSIS WITH REFLEX MICROSCOPIC AND CULTURE Narrative: The following orders were created for panel order Urinalysis with reflex microscopic and culture. Procedure Abnormality Status --------- ------ Urinalysis with reflex ...[[id number]] Normal Final result Purvis urine culture tube[[id number]] Final result Please view results for these [...] Signed Date: 08/22/2024 09:13 ET Workstation ID: [id number] Transcribed By: Self Edit Transcribed Date: 08/22/2024 [...] Signed Date: 08/22/2024 09:13 ET Workstation ID: [id number] Transcribed By: Self Edit Transcribed Date: 08/22/2024 09:[address] Head wo Contrast Final Result No acute intracranial abnormality -------- FINAL REPORT -------- Dictated By: CONNOR OLIVIA Dictated Date: 08/22/2024 08:50 ET Assigned Physician: CONNOR OLIVIA Reviewed and Electronically Signed By: CONNOR OLIVIA Signed Date: 08/22/2024 08:58 ET Workstation ID: [id number] Transcribed By: Self Edit Transcribed Date: 08/22/2024 [...] of 08/22/24 1140 MUSHTAQ (acute kidney injury) ([facility]) Generalized weakness Procedures Procedures Diagnosis 1. MUSHTAQ [...] PharmD - 08/22/2024 2:53 PM ESTAssociated Order(s): [facility] GENERAL CON[facility] Pharmacy is consulted to evaluate pt's med list for concerns of polypharmacy possibly contributing to falls and generalized weakness. Patient's home medication list filled via [facility] in [place] [phone] asreconciled by med history pulmonology technician today 08/22/24 includes: Aspirin 81 mg [...] effects including dizziness, nausea, and sedation. Per cooking casing and drying supervisor's package insert the recommended total daily dose [...] CBC auto differential (08/23/2024 5:26 AM EST) [facility] WBC 6.2 4.8 - 10.8 K/mcL LAB HEMETOLOGY METHOD 08/23/2024 6:39 AM [facility] RBC 3.80 3.80 - 4.80 M/mcL LAB HEMETOLOGY METHOD 08/23/2024 6:39 AM [facility] Hemoglobin 10.6(L) 11.5 - 16.0 g/dL LAB HEMETOLOGY METHOD 08/23/2024 6:39 AM [facility] Hematocrit 32.5(L) 35.0 - 47.0 % LAB HEMETOLOGY METHOD 08/23/2024 6:39 AM [facility] MCV 85.1 79.0 - 98.0 FL LAB HEMETOLOGY METHOD 08/23/2024 6:39 AM [facility] MCH 27.7 27.0 - 32.0 pcg LAB HEMETOLOGY METHOD 08/23/2024 6:39 AM [facility] MCHC 32.6 32.0 - 37.0 g/dL LAB HEMETOLOGY METHOD 08/23/2024 6:39 AM [facility] RDW 14.2 11.0 - 15.0 % LAB HEMETOLOGY METHOD 08/23/2024 6:39 AM [facility] Platelets 134 130 - 400 K/mcL LAB HEMETOLOGY METHOD 08/23/2024 6:39 AM [facility] MPV 14.0(H) 7.0 - 11.0 FL LAB HEMETOLOGY METHOD 08/23/2024 6:39 AM [facility] NRBC 0.0 <1.0 % LAB HEMETOLOGY METHOD 08/23/2024 6:39 AM [facility] NRBC Absolute 0.00 <0.10 K/mcL LAB HEMETOLOGY METHOD 08/23/2024 6:39 AM [facility] Neutrophils Relative 72.0 % LAB HEMETOLOGY METHOD 08/23/2024 6:39 AM [facility] Lymphocytes Relative 13.4 % LAB HEMETOLOGY METHOD 08/23/2024 6:39 AM [facility] Monocytes Relative 9.2 % LAB HEMETOLOGY METHOD 08/23/2024 6:39 AM [facility] Eosinophils Relative 4.8 % LAB HEMETOLOGY METHOD 08/23/2024 6:39 AM [facility] Basophils Relative 0.3 % LAB HEMETOLOGY METHOD 08/23/2024 6:39 AM [facility] Immature Granulocytes Relative 0.3 % LAB HEMETOLOGY METHOD 08/23/2024 6:39 AM [facility] Neutrophils Absolute 4.45 1.50 - 7.00 K/mcL LAB HEMETOLOGY METHOD 08/23/2024 6:39 AM [facility] Lymphocytes Absolute 0.83(L) 1.00 - 5.00 K/mcL LAB HEMETOLOGY METHOD 08/23/2024 6:39 AM EST [facility] Monocytes Absolute 0.57 0.20 - 1.00 K/[facility] LAB HEMETOLOGY METHOD 08/23/2024 6:39 AM EST [facility] Eosinophils Absolute 0.30 0.00 - 0.50 K/[facility] LAB HEMETOLOGY METHOD 08/23/2024 6:39 AM EST [facility]) [facility] Basophils Absolute 0.02 0.00 - 0.20 K/[facility] LAB HEMETOLOGY METHOD 08/23/2024 6:39 AM EST [facility]) [facility] Immature Granulocytes Absolute 0.02 0.00 - 0.03 K/[facility] LAB HEMETOLOGY METHOD 08/23/2024 6:39 AM EST [facility] Blood Venous blood specimen / Unknown Venipuncture / Unknown 08/23/2024 5:26 AM EST 08/23/2024 6:14 AM EST Katelin Mary Ann SLITTER PROCESSED FILM LAB BLOOD ORDERABLES Final Res ult [facility] [address] [place] [address], [place] [phone] * Magnesium (08/23/2024 5:26 AM EST) Magnesium 2.4 1.9 - 2.6 mg/dL LAB CHEMISTRY METHOD 08/23/2024 7:21 AM EST [facility] Blood Venous blood specimen / Unknown Venipuncture / Unknown 08/23/2024 5:26 AM EST 08/23/2024 6:13 AM EST Katelin Mary Ann SLITTER PROCESSED FILM LAB BLOOD ORDERABLES Final Res ult [facility] [address] [place] [address], [place] [phone] * (ABNORMAL) Basic metabolic panel (08/23/2024 5:26 AM EST) Sodium 138 133 - 145 mmol/L LAB CHEMISTRY METHOD 08/23/2024 7:27 AM [facility] Potassium 4.2 3.5 - 5.5 mmol/L LAB CHEMISTRY METHOD 08/23/2024 7:27 AM [facility] Chloride 107 96 - 110 mmol/L LAB CHEMISTRY METHOD 08/23/2024 7:27 AM [facility] CO2 26 21 - 32 mmol/L LAB CHEMISTRY METHOD 08/23/2024 7:27 AM [facility] Anion Gap 5 3 - 11 LAB CHEMISTRY METHOD 08/23/2024 7:27 AM [facility] Glucose 104(H) 70 - 100 mg/dL LAB CHEMISTRY METHOD 08/23/2024 7:27 AM [facility] BUN 27(H) 5 - 25 mg/dL LAB CHEMISTRY METHOD 08/23/2024 7:27 AM [facility] Creatinine 1.09 0.50 - 1.10 mg/dL LAB CHEMISTRY METHOD 08/23/2024 7:27 AM [facility] eGFR 56(L) >=60 mL/min/1. 73m2 LAB CHEMISTRY METHOD 08/23/2024 7:27 AM [facility] Comment:Calculation based on the??Chronic Kidney Disease Epidemiology Collaboration (CKD-EPI) equation refit??without adjustment for race. BUN/Creatinine Ratio 24.8 LAB CHEMISTRY METHOD 08/23/2024 7:27 AM [facility] Calcium 8.8 8.5 - 10.5 mg/dL LAB CHEMISTRY METHOD 08/23/2024 7:27 AM [facility] Blood Venous blood specimen / Unknown Venipuncture / Unknown 08/23/2024 5:26 AM EST 08/23/2024 6:13 AM EST us Elizabeth Templeton MD LAB BLOOD ORDERABLES Final Res ult Performing Organization Address City/[facility]/ZIP Co de Phone Number [facility] [address] [place] [address], [place] [phone] * Purvis urine culture tube (08/22/2024 9:38 AM EST) Pathologist [facility] Extra Tube Hold for add-ons. 08/22/2024 11:01 AM [facility] Comment:Auto resulted. Urine Urine specimen obtained by clean catch procedure / Unknown Non-blood Collection / Unknown 08/22/2024 9:38 AM EST 08/22/2024 9:58 AM EST us Lito Redding MD LAB URINE ORDERABLES Final Resu lt Performing Organization Address [facility]/ZIP Co de Phone Number [facility] [address] [place] [address], [place] [phone] * Urinalysis with reflex microscopic and culture (08/22/2024 9:38 AM EST) [facility] Specific [place] Urine 1.016 1.003 - 1.030 LAB URINALYSIS - AUTOMATED METHOD 08/22/2024 10:03 AM [facility] pH, Urine 5.5 5.0 - 8.0 pH LAB URINALYSIS - AUTOMATED METHOD 08/22/2024 10:03 AM [facility] Leukocytes, Urine Negative Negative LAB URINALYSIS - AUTOMATED METHOD 08/22/2024 10:03 AM [facility] Nitrite, Urine Negative Negative LAB URINALYSIS - AUTOMATED METHOD 08/22/2024 10:03 AM [facility] Protein, Urine Negative <=Trace mg/dL LAB URINALYSIS - AUTOMATED METHOD 08/22/2024 10:03 AM [facility] Glucose, Urine Negative Negative mg/dL LAB URINALYSIS - AUTOMATED METHOD 08/22/2024 10:03 AM [facility] Ketones, Urine Negative Negative mg/dL LAB URINALYSIS - AUTOMATED METHOD 08/22/2024 10:03 AM [facility] Urobilinogen, Urine 0.2 0.2 - 1.0 mg/dL LAB URINALYSIS - AUTOMATED METHOD 08/22/2024 10:03 AM [facility] Bilirubin, Urine Negative Negative LAB URINALYSIS - AUTOMATED METHOD 08/22/2024 10:03 AM [facility] Blood, Urine Negative Negative LAB URINALYSIS - AUTOMATED METHOD 08/22/2024 10:03 AM [facility] Urine Urine specimen obtained by clean catch procedure / Unknown Non-blood Collection / Unknown 08/22/2024 9:38 AM EST 08/22/2024 9:58 AM EST us Lito Redding MD LAB URINE ORDERABLES Final Resu lt [facility] [address] [place] [address], * Respiratory virus panel molecular study (08/22/2024 9:07 AM EST) Adenovirus Detection by PCR Not Detected Not Detected LAB MICROBIOLOGY METHOD 08/22/2024 10:56 AM [facility] Influenza A PCR Not Detected Not Detected LAB MICROBIOLOGY METHOD 08/22/2024 10:56 AM [facility] Influenza B PCR Not Detected Not Detected LAB MICROBIOLOGY METHOD 08/22/2024 10:56 AM [facility] Coronavirus 229E Not Detected Not Detected LAB MICROBIOLOGY METHOD 08/22/2024 10:56 AM [facility] Coronavirus HKU1 Not Detected Not Detected LAB MICROBIOLOGY METHOD 08/22/2024 10:56 AM [facility] Coronavirus OC43 Not Detected Not Detected LAB MICROBIOLOGY METHOD 08/22/2024 10:56 AM [facility] Coronavirus NL63 Not Detected Not Detected LAB MICROBIOLOGY METHOD 08/22/2024 10:56 AM [facility] Parainfluenza Virus 1 Not Detected Not Detected LAB MICROBIOLOGY METHOD 08/22/2024 10:56 AM [facility] Parainfluenza Virus 2 Not Detected Not Detected LAB MICROBIOLOGY METHOD 08/22/2024 10:56 AM [facility] Parainfluenza Virus 3 Not Detected Not Detected LAB MICROBIOLOGY METHOD 08/22/2024 10:56 AM [facility] Parainfluenza Virus 4 Not Detected Not Detected LAB MICROBIOLOGY METHOD 08/22/2024 10:56 AM [facility] RSV PCR Not Detected Not Detected LAB MICROBIOLOGY METHOD 08/22/2024 10:56 AM [facility] Human Metapneumovirus A and B Not Detected Not Detected LAB MICROBIOLOGY METHOD 08/22/2024 10:56 AM [facility] Rhinovirus/Entero virus Not Detected Not Detected LAB MICROBIOLOGY METHOD 08/22/2024 10:56 AM [facility] Bordetella pertussis Not Detected Not Detected LAB MICROBIOLOGY METHOD 08/22/2024 10:56 AM [facility] Bordetella parapertussis Not Detected Not Detected LAB MICROBIOLOGY METHOD 08/22/2024 10:56 AM [facility] Mycoplasma pneumo by PCR Not Detected Not Detected LAB MICROBIOLOGY METHOD 08/22/2024 10:56 AM [facility] Chlamydia pneumoniae Not Detected Not Detected LAB MICROBIOLOGY METHOD 08/22/2024 10:56 AM [facility] SARS COV-2 Not Detected Not Detected LAB MICROBIOLOGY METHOD 08/22/2024 10:56 AM [facility] Swab Both anterior nares / Unknown Non-blood Collection / Unknown 08/22/2024 9:07 AM EST 08/22/2024 9:52 AM EST Narrative [facility] ([facility]) [facility] - 08/22/2024 10:56 AM EST Testing was performed using the Ameristream Respiratory Pathogen PCR Assay. All results must [...] MICROBIOLOGY - GENERAL ORDER SMILEY Final Result [facility] ([facility]) [facility] [address] [place] [address], * XR Lumbar Spine 2-3 Views (08/22/2024 [...] Signed Date: 08/22/2024 09:13 ET Workstation ID: [id number] Transcribed By: Self Edit Transcribed Date: 08/22/2024 [...] Signed Date: 08/22/2024 09:13 ET Workstation ID: [id number] Transcribed By: Self Edit Transcribed Date: 08/22/2024 [...] Signed Date: 08/22/2024 09:13 ET Workstation ID: [id number] Transcribed By: Self Edit Transcribed Date: 08/22/2024 [...] Signed Date: 08/22/2024 09:13 ET Workstation ID: [id number] Transcribed By: Self Edit Transcribed Date: 08/22/2024 [...] Date: 08/22/2024 08:50 ET Assigned Physician: CONNOR LOIVIA Reviewed and Electronically Signed By: CONNOR OLIVIA Signed Date: 08/22/2024 08:58 ET Workstation ID: [id number] Transcribed By: Self Edit Transcribed Date: 08/22/2024 [...] Signed Date: 08/22/2024 08:58 ET Workstation ID: [id number] Transcribed By: Self Edit Transcribed Date: 08/22/2024 08:50 ET Ernst PURVIS G CT PROCEDURES Final Result * ECG 12 lead (08/22/2024 7:53 AM EST) Ventricular Rate ECG 79 BPM GEMUSE Atrial Rate 79 BPM GEMUSE P-R Interval 178 ms GEMUSE QRS Duration 98 ms GEMUSE Q-T Interval 386 ms GEMUSE QTc 442 ms GEMUSE P Wave [place] 71 degrees GEMUSE R [place] 54 degrees GEMUSE T [place] 57 degrees GEMUSE ECG Interpretation Normal sinus rhythm When compared with ECG of 24-APR-2024 05:50, No significant change was found Confirmed by INNA JENSEN ([id number]) on 08/22/2024 8:02:38 PM GEMUSE 08/22/2024 7:53 AM EST 08/22/2024 8:02 PM EST Lito Redding MD ECG ORDERABLES Final Result Performing Organization Address [facility] de Phone Number GEMUSE * (ABNORMAL) Alkaline phosphatase (08/22/2024 7:37 AM EST) Alkaline Phosphatase 123(H) 42 - 121 unit/L LAB CHEMISTRY METHOD 08/22/2024 9:06 AM EST [facility] Blood Venous blood specimen / Unknown Venipuncture / Unknown 08/22/2024 7:37 AM EST 08/22/2024 8:33 AM EST Ernst PURVIS LAB BLOOD ORDERABLES Final Resul t Performing Organization Address [facility] de Phone Number [facility] [address] [place] [address], [place] [phone] * Bilirubin, total (08/22/2024 7:37 AM EST) [facility] Total Bilirubin 0.2 0.0 - 1.4 mg/dL LAB CHEMISTRY METHOD 08/22/2024 9:06 AM EST [facility] Blood Venous blood specimen / Unknown Venipuncture / Unknown 08/22/2024 7:37 AM EST 08/22/2024 8:33 AM EST Vicente Donald MD LAB BLOOD ORDERABLES Final Resul t Performing Organization Address [facility] de Phone Number [facility] [address] [place] [address], [place] [phone] * Alanine aminotransferase (08/22/2024 7:37 AM EST) ALT (SGPT) 20 10 - 60 unit/L LAB CHEMISTRY METHOD 08/22/2024 9:06 AM EST [facility] Blood Venous blood specimen / Unknown Venipuncture / Unknown 08/22/2024 7:37 AM EST 08/22/2024 8:33 AM EST [facility] LAB BLOOD ORDERABLES Final Resul t Performing Organization Address City/[facility]/ZIP Co de Phone Number [facility] [address] [place] [address], [place] [phone] * Aspartate aminotransferase (08/22/2024 7:37 AM EST) AST (SGOT) 15 10 - 42 unit/L LAB CHEMISTRY METHOD 08/22/2024 9:06 AM [facility] Blood Venous blood specimen / Unknown Venipuncture / Unknown 08/22/2024 7:37 AM EST 08/22/2024 8:33 AM EST [facility] LAB BLOOD ORDERABLES Final Resul t Performing Organization Address [facility]/ZIP Co de Phone Number [facility] [address] [place] [address], [place] [phone] * (ABNORMAL) CBC auto differential (08/22/2024 7:37 AM EST) WBC 6.8 4.8 - 10.8 K/mcL LAB HEMETOLOGY METHOD 08/22/2024 8:51 AM [facility] RBC 4.10 3.80 - 4.80 M/mcL LAB HEMETOLOGY METHOD 08/22/2024 8:51 AM [facility] Hemoglobin 11.4(L) 11.5 - 16.0 g/dL LAB HEMETOLOGY METHOD 08/22/2024 8:51 AM [facility] Hematocrit 35.4 35.0 - 47.0 % LAB HEMETOLOGY METHOD 08/22/2024 8:51 AM [facility] MCV 86.1 79.0 - 98.0 FL LAB HEMETOLOGY METHOD 08/22/2024 8:51 AM [facility] MCH 27.7 27.0 - 32.0 pcg LAB HEMETOLOGY METHOD 08/22/2024 8:51 AM [facility] MCHC 32.2 32.0 - 37.0 g/dL LAB HEMETOLOGY METHOD 08/22/2024 8:51 AM [facility] RDW 14.3 11.0 - 15.0 % LAB HEMETOLOGY METHOD 08/22/2024 8:51 AM [facility] Platelets 154 130 - 400 K/mcL LAB HEMETOLOGY METHOD 08/22/2024 8:51 AM [facility] MPV 14.0(H) 7.0 - 11.0 FL LAB HEMETOLOGY METHOD 08/22/2024 8:51 AM [facility] NRBC 0.0 <1.0 % LAB HEMETOLOGY METHOD 08/22/2024 8:51 AM [facility] NRBC Absolute 0.00 <0.10 K/mcL LAB HEMETOLOGY METHOD 08/22/2024 8:51 AM [facility] Neutrophils Relative 73.2 % LAB HEMETOLOGY METHOD 08/22/2024 8:51 AM [facility] Lymphocytes Relative 11.4 % LAB HEMETOLOGY METHOD 08/22/2024 8:51 AM [facility] Monocytes Relative 9.0 % LAB HEMETOLOGY METHOD 08/22/2024 8:51 AM [facility] Eosinophils Relative 5.5 % LAB HEMETOLOGY METHOD 08/22/2024 8:51 AM [facility] Basophils Relative 0.6 % LAB HEMETOLOGY METHOD 08/22/2024 8:51 AM [facility] Immature Granulocytes Relative 0.3 % LAB HEMETOLOGY METHOD 08/22/2024 8:51 AM EST [facility] Neutrophils Absolute 4.94 1.50 - 7.00 K/[facility] LAB HEMETOLOGY METHOD 08/22/2024 8:51 AM EST [facility] Lymphocytes Absolute 0.77(L) 1.00 - 5.00 K/mcL LAB HEMETOLOGY METHOD 08/22/2024 8:51 AM EST [facility] Monocytes Absolute 0.61 0.20 - 1.00 K/[facility] LAB HEMETOLOGY METHOD 08/22/2024 8:51 AM EST [facility] Eosinophils Absolute 0.37 0.00 - 0.50 K/[facility] LAB HEMETOLOGY METHOD 08/22/2024 8:51 AM EST [facility] Basophils Absolute 0.04 0.00 - 0.20 K/mcL LAB HEMETOLOGY METHOD 08/22/2024 8:51 AM EST [facility] Immature Granulocytes Absolute 0.02 0.00 - 0.03 K/mcL LAB HEMETOLOGY METHOD 08/22/2024 8:51 AM EST [facility] Blood Venous blood specimen / Unknown Venipuncture / Unknown 08/22/2024 7:37 AM EST 08/22/2024 8:34 AM EST us Lito Redding MD LAB BLOOD ORDERABLES Final Resu lt [facility] [address] [place] [address], * Magnesium (08/22/2024 7:37 AM EST) Magnesium 2.4 1.9 - 2.6 mg/dL LAB CHEMISTRY METHOD 08/22/2024 9:06 AM EST [facility] Blood Venous blood specimen / Unknown Venipuncture / Unknown 08/22/2024 7:37 AM EST 08/22/2024 8:33 AM EST us Lito Redding MD LAB BLOOD ORDERABLES Final Resu lt [facility] [address] [place] [address], [place] [phone] * (ABNORMAL) Basic metabolic panel (08/22/2024 7:37 AM EST) Sodium 143 133 - 145 mmol/L LAB CHEMISTRY METHOD 08/22/2024 9:06 AM [facility] Potassium 4.2 3.5 - 5.5 mmol/L LAB CHEMISTRY METHOD 08/22/2024 9:06 AM [facility] Chloride 107 96 - 110 mmol/L LAB CHEMISTRY METHOD 08/22/2024 9:06 AM [facility] CO2 25 21 - 32 mmol/L LAB CHEMISTRY METHOD 08/22/2024 9:06 AM [facility] Anion Gap 11 3 - 11 LAB CHEMISTRY METHOD 08/22/2024 9:06 AM [facility] Glucose 94 70 - 100 mg/dL LAB CHEMISTRY METHOD 08/22/2024 9:06 AM [facility] BUN 37(H) 5 - 25 mg/dL LAB CHEMISTRY METHOD 08/22/2024 9:06 AM [facility] Creatinine 1.74(H) 0.50 - 1.10 mg/dL LAB CHEMISTRY METHOD 08/22/2024 9:06 AM [facility] eGFR 32(L) >=60 mL/min/1. 73m2 LAB CHEMISTRY METHOD 08/22/2024 9:06 AM [facility] Comment:Calculation based on the??Chronic Kidney Disease Epidemiology Collaboration (CKD-EPI) equation refit??without adjustment for race. BUN/Creatinine Ratio 21.3 LAB CHEMISTRY METHOD 08/22/2024 9:06 AM EST [facility] Calcium 8.7 8.5 - 10.5 mg/dL LAB CHEMISTRY METHOD 08/22/2024 9:06 AM EST [facility] Blood Venous blood specimen / Unknown Venipuncture / Unknown 08/22/2024 7:37 AM EST 08/22/2024 8:33 AM EST Lito Redding MD LAB BLOOD ORDERABLES Final Resu lt [facility] [address] [place] [address], [place] [phone] documented in this encounter Visit Diagnoses Diagnosis ARF (acute renal failure) ([facility])- Primary Acute kidney failure, unspecified MUSHTAQ (acute kidney injury) ([facility]) Generalized weakness documented in this encounter Admitting Diagnoses Diagnosis ARF (acute renal failure) ([facility]) Acute kidney failure, unspecified documented in this [...] documented as of this encounter Care Teams Cupola Melting Supervisor Relationship Specialty Start Date End Date Shannon Ordaz MD [address] [place] [phone] PCP - General Internal Medicine 08/22/24 documented as of this encounter
--- OUTSIDE RECORDS SUMMARY | 2024-08-29 16:08 | XMS_ITS | Encounter Summary ---
Author Organization [employer] Address [address] [place] [address] 7 [place] [address] Care Team Providers Care Shuttle Van Driver Name Role Phone Shnanon Ordaz MD Primary Care Provider + Benjie Pineda Unavailable Unavailable Reason for Visit * Reason Comments Med Refill Encounter Details Date Type Department Care Team (Late st Contact Info) Description 07/26/2022 Refill [facility] [address] [place] [phone] Benjie Pineda FNP Major depressive disorder, recurrent [...] 09/04/2024 10:45 AM EDT Office Visit [facility] [address] [place] [phone] Shannon Ordaz MD [address] [place] [address] [phone] documented as of this encounter Visit Diagnoses Diagnosis Major depressive disorder, recurrent episode with mood-congruent psychotic features (CMS/HCC) documented in this encounter Additional Health Concerns Assessment Noted Time PHQ-9 Depression Total Score: 11 023 9:08 AM EST documented as of this encounter Care Teams Shuttle Van Driver Relationship Specialty Start Date End Date Shannon Ordaz MD [address] [place] [address] PCP - General Family Medicine 06/11/19 Benjie Pineda FNP [address] [place] [address] Nurse Practitioner Family Medicine 05/23/23 [facility] 04/25/24 05/03/24 documented as of this encounter
--- OUTSIDE RECORDS SUMMARY | 2024-08-29 16:08 | XMS_ITS | Encounter Summary ---
Author Organization [employer] Address [address] [facility] 7t [place] [address] Care Team Providers Care Director Of Finance Name Role Phone Shannon Ordaz MD Primary Care Provider + Benjie Pineda Unavailable Unavailable Reason for Visit * Reason Comments Med Refill Encounter Details Date Type Department Care Team (Late st Contact Info) Description 08/07/2024 Refill [facility] [address] [place], [place] [phone] Shannon Ordaz MD [address], [place] [phone] TIA (transient ischemic attack) Social History Tobacco [...] Description 09/04/2024 10:45 AM EDT Office Visit [facility] [address] [place] [phone] Shannon Ordaz MD [address] [place] [phone] documented as of this encounter Goals Goal [...] as of this encounter Care Teams Director Of Finance Relationship Specialty Start Date End Date Shannon Ordaz MD [address] [place] [phone] PCP - General Family Medicine 06/11/19 Benjie Pineda FNP [address] [place] [address] Nurse Practitioner Family Medicine 05/23/23 documented as of this encounter
--- OUTSIDE RECORDS SUMMARY | 2024-08-29 16:08 | XMS_ITS | Encounter Summary ---
Author Organization [employer] Address [address] [place] [address] [place] [address] Care Team Providers Care Rod Placer Name Role Phone Shannon Ordaz MD Primary Care Provider + Benjie Pineda Unavailable Unavailable Reason for Visit * Reason Onset Date Comments Medication Question 08/28/2024 Encounter Details Date Type Department Care Team (Late st Contact Info) Description 08/28/2024 Telephone [facility] [address] [place], [place] [phone] Essence Gooden, PharmD [address] [place] [address] Medication Question Social History Tobacco Use Types [...] Telephone Encounter - Sujey Hicks RN - 08/29/2024 3:10 PM EST TC placed to [facility]box who confirms mirtazapine 45mg medication is going thru insurance without any issues. RN called patient [phone] to inform mirtazapine can no longer be 30mg 2 tabs at nighttime d/t insurance therefore PCP has increased dose to 45mg as ONE tab nightly. Patient verbalized u nderstanding. Patient also advised PCP will not be refilling lorazepam medication at this time and will discuss with patient at upcoming appointment on 09/04/24. Patient to f/u PRN. * Addendum Note - Shannon Ordaz MD - 08/28/2024 8:19 PM ESTAddended by: SHANNON ORDAZ on: 08/28/2024 08:19 PM Modules accepted: Orders * Telephone Encounter - Shannon Ordaz MD - 08/28/2024 8:13 PM EST Regarding mirtazapine, please call mailboxes and tell them that I will have to change to 45 mg nightly as that is the maximal tablet presentation, I will monitor insomnia and anxiety. Regarding lorazepam, last prescription was in March x 60 tablets, it does not reflect the need totake medications daily, especially given recurrent falls, symptoms of dizziness, lightheadedness and weakness. Please tell patient that lorazepam may exacerbate these symptoms and increase her risk of falls and given that she has not taken it in a while or regularly, there is no indication to continue routine prescription. Please tell her that I will follow-up at next appointment and if the medication needs to be adjusted, I will discuss it with her at that visit or I will refer her to psychiatry. * Telephone Encounter - Sujey Hicks RN - 08/28/2024 3:47 PM EST Please see below message. Patient is requesting a refill on her lorazepam (Rx'd by Benjie Pineda) per yannickpat last filled 04/26/24 for a 30 day supply. Pharmacy reports they need a new RX as previousRX is so they are unable to fill the remaining refills. Mirtazapine last filled on 07/11/24 for 2 tabs at bedtime however insurance will only cover medication as a maximum of 1 tab at bedtime for a qty of 30 for a 30 day supply. Pharmacy reports they need a new RX for once daily dosing. Please review and advise on lorazepam and mirtazapine. Thank you! * Telephone Encounter - Essence Gooden PharmD - 08/28/2024 3:12 PM EST Patient requested refill on lorazepam And mirtazapine requires PA due to quantity limitations (limit of 30 tabs/30 days per posted formulary) Both prev. Prescribed by Benjie Pineda documented in this encounter Plan of Treatment Upcoming Encounters Date Type Department Care Team (Late st Contact Info) Description 09/04/2024 10:45 AM EDT Office Visit [facility] [address] [place] [phone] Shannon Ordaz MD [address] [place] [address] documented as of this encounter Goals Goal [...] documented as of this encounter Care Teams Rod Placer Relationship Specialty Start Date End Date Shannon Ordaz MD [address] [place] [address] PCP - General Family Medicine 06/11/19 Benjie Pineda FNP [address] [place] [address] Nurse Practitioner Family Medicine 05/23/23 documented as of this encounter
--- OUTSIDE RECORDS SUMMARY | 2024-08-29 16:08 | XMS_ITS | Encounter Summary ---
Author Organization [employer] [facility] Address [address] [place] [address] [address] [place] [address] Care Team Providers Care Furnace Door Tender Name Role Phone Shannon Ordaz MD Primary Care Provider + Benjie Pineda Unavailable Unavailable Reason for Visit * Reason Comments Med Refill Encounter Details Date Type Department Care Team (Late st Contact Info) Description 06/29/2022 Refill [facility] [address] [place] [phone] Benjie Pineda FNP Social History Tobacco Use [...] Description 09/04/2024 10:45 AM EDT Office Visit [facility] [address] [place] [address] [phone] Shannon Ordaz MD [address] [place], [place] [phone] documented as of this encounter Visit Diagnoses Not on filedocumented in this encounter Care Teams Furnace Door Tender Relationship Specialty Start Date End Date Shannon Ordaz MD [address] [place] [address] PCP - General Family Medicine 06/11/19 Benjie Pineda FNP [address] [place] [address] Nurse Practitioner Family Medicine 05/23/23 [facility] 04/25/24 05/03/24 documented as of this encounter
--- OUTSIDE RECORDS SUMMARY | 2024-08-29 16:08 | XMS_ITS | Encounter Summary ---
Author Organization [employer] Address [address] [place] [address] [address] [place] [address] Care Team Providers Care Wood Sawyer Name Role Phone Shannon Ordaz MD Primary Care Provider + Benjie Pineda Unavailable Unavailable Reason for Visit * Reason Onset Date Comments Pre-op Exam 06/21/2024 Encounter Details Date Type Department Care Team ([facility] st Contact Info) Description 06/21/2024 Telephone [facility] [address] [place], [place] [phone] Shannon Ordaz MD [address] [place], [place] [phone] Pre-op Exam Social History Tobacco Use Types [...] Melita Stevenson - 06/21/2024 9:57 AM EST Slab Conditioner Supervisor spoke with Melanie at [facility] and agreed to inform pt she is scheduled for pre op on 07/25/24 at 9AM with . Appointment reminder letter mailed Date of Surgery: 08/07/2024 and 08/23/2024 (right eye) Surgical procedure being done: Cataract Surgery Type of anesthesia: MAC Lab needed: No EKG: No Surgeon's name: Tino Falk Facility name: [facility] Surgeon's office number: [phone] Surgeon's office fax number: [phone] Contact name (person you spoke with): Melanie Last office note from surgeon requested: No * Telephone Encounter - Watson Abdi - 06/21/2024 9:08 AM EST Date of Surgery: 08/07/2024 and 08/23/2024 (right eye) Surgical procedure being done: Cataract Surgery Type of anesthesia: MAC Lab needed: No EKG: No Surgeon's name: Tino Falk Facility name: [facility] Surgeon's office number: [phone] Surgeon's office fax number: [phone] Contact name (person you spoke with): Melanie Last office note from surgeon requested: No Send Message to Melita Stevenson and Marc Apodaca documented in this encounter Plan of Treatment Upcoming Encounters Date Type Department Care Team (Late st Contact Info) Description 09/04/2024 10:45 AM EDT Office Visit [facility] [address] [place] [address] Shannon Ordaz MD [address] [place] [address] documented as of this encounter Goals Goal [...] documented as of this encounter Care Teams Wood Sawyer Relationship Specialty Start Date End Date Shannon Ordaz MD [address] [place] [phone] PCP - General Family Medicine 06/11/19 Benjie Pineda FNP [address] [place] [address] Nurse Practitioner Family Medicine 05/23/23 documented as of this encounter
--- OUTSIDE RECORDS SUMMARY | 2024-08-29 16:08 | XMS_ITS | Encounter Summary ---
Author Organization [employer] Address [address] [facility] 7t [place] [address] Care Team Providers Care Paint Roller Winder Name Role Phone Shannon Ordaz MD Primary Care Provider + Benjie Pineda Unavailable Unavailable Reason for Visit * Reason Comments Med Refill Encounter Details Date Type Department Care Team (Late st Contact Info) Description 06/13/[address] [facility] [address] [place], [place] [phone] Shannon Ordaz MD [address] [place] [address] Primary hypertension Social History Tobacco Use Types [...] Description 09/04/2024 10:45 AM EDT Office Visit [facility] [address] [place] [phone] Shannon Ordaz MD [address] [place] [phone] documented as of this encounter Goals Goal [...] documented as of this encounter Care Teams Paint Roller Winder Relationship Specialty Start Date End Date Shannon Ordaz MD [address] [place] [phone] PCP - General Family Medicine 06/11/19 Benjie Pineda FNP [address] [place] [address] Nurse Practitioner Family Medicine 05/23/23 documented as of this encounter
== END 2024-08-29 13:57 | disposition home or self-care (01) ==
PROVIDERS: PCP Internal Medicine; Visit Provider Internal Medicine Nephrology
DX: N17.9 Acute kidney failure, unspecified (principal); N18.31 Chronic kidney disease, stage 3a; I10 Essential (primary) hypertension
CPT/HCPCS: 99214

== ENCOUNTER → 2024-08-29 13:28 | Outpatient (BNVA) | payer MEDICARE, MEDICAID, SELFPAY | PROVIDERS: PCP Internal Medicine; Visit Provider Internal Medicine Nephrology | DX: I12.9 Hypertensive chronic kidney disease with stage 1 through stage 4 chronic kidney disease, or unspecified chronic kidney disease (principal); N17.9 Acute kidney failure, unspecified; N18.31 Chronic kidney disease, stage 3a | CPT/HCPCS: 99212 ==

== ENCOUNTER 2024-09-24 07:56 | Emergency (ER) | payer MEDICARE, MEDICAID, SELFPAY ==
--- NOTE | ~2024-09-24 | XR_ITS ---
EXAMINATION: XR CHEST CLINICAL INFORMATION: productive cough COMPARISON: 03/27/2020. CT chest 05/28/2022. TECHNIQUE: 2 views of the chest were obtained. FINDINGS: The cardiac, hilar, and mediastinal contours are normal. Mild aortic calcification. The lungs are mildly hyperaerated, however clear bilaterally. There is no pneumothorax or pleural effusion. There is no focal osseous or soft tissue abnormality. XR/XR chest 2V IMPRESSION: Findings suggestive of COPD. No active superimposed disease. Electronically signed by: Juan Antonio Whittaker MD 09/24/2024 08:46 AM EDT
[2024-09-24 08:11] VITALS: BP 99/47; PULSE 75; RESP 20; TEMP 36.8; O2SAT 95; BMI 35.0
--- NOTE | 2024-09-24 08:13 | ECG_ITS ---
Test Reason : cp Blood Pressure : */* mmHG Vent. Rate : 69 BPM Atrial Rate : 69 BPM P-R Int : 172 ms QRS Dur : 94 ms QT Int : 404 ms P-R-T Axes : 59 39 31 degrees QTcB Int : 432 ms Normal sinus rhythm Normal ECG When compared with ECG of 23-Jul-2021 11:12, No significant change was found Referred By: Generic ED Physician Electronically Signed By: JOAN HULL
[2024-09-24 08:32] LABS: MANUAL DIFF FLAG NO
[2024-09-24 08:34] LABS: Basophils Absolute Auto 0.1 X10*3/uL (0.0-0.2); Basophils Percent Auto 0.8 % (0-2); Eosinophils Absolute Auto 0.8 X10*3/uL (0.0-0.4); Eosinophils Percent Auto 10.8 % (0-4); Hematocrit 32.5 % (37.0-47.0); Imm Gran Abs Auto 0.02 X10*3/uL (0.00-0.03); Imm Gran Pct Auto 0.3 % (0.0-0.4); Lymphocytes Absolute Auto 0.7 X10*3/uL (1.2-4.9); Lymphocytes Percent Auto 9.5 % (20-40); Mean Corpuscular HGB Conc 33.8 g/dl (31.0-35.0); Mean Corpuscular Hemoglobin 27.7 pg (27.0-33.0); Mean Corpuscular Volume 81.9 fL (80.0-98.0); Mean Platelet Volume 11.9 fL (9.4-12.3); Monocytes Absolute Auto 0.6 X10*3/uL (0.1-1.2); Monocytes Percent Auto 8.8 % (2-11); Neutrophils Absolute Auto 5.1 x10*3/uL (2.0-8.3); Neutrophils Percent Auto 69.8 % (45-73); Platelet Count 185 X10*3/uL (160-400); Red Blood Count 3.97 X10*6/uL (4.20-5.50); Red Cell Distribution Width 14.2 % (11.0-16.0); White Blood Count 7.2 X10*3/uL (4.8-10.8)
[2024-09-24 08:47] LABS: Anion Gap 10 (12-20); Blood Urea Nitrogen 9 mg/dL (9-16); Calcium 9.2 mg/dL (8.4-10.2); Carbon Dioxide 27 mmol/L (22-29); Chloride 110 mmol/L (96-108); Creatinine Clr Calc Pharmacy 45.6; Estimated Glomerular Filt Rate 47; Glucose Random 105 mg/dL (60-115); Potassium 3.9 mmol/L (3.3-5.1); Sodium 143 mmol/L (135-145)
[2024-09-24 08:57] LABS: Troponin-I High Sensitivity < 2.7 ng/L (<3.5-17.0)
--- NOTE | 2024-09-24 09:02 | ED_ITS ---
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 (all interactions with this patient were facilitated with an [facility] scalping machine operator) Mode of arrival: ambulatory (with a rollator walker) Limitations: language barrier (all interactions with this patient were facilitated with an [facility] scalping machine operator) History of Present Illness ED Provider: Tresa Chowdhury PA-C HPI narrative: Patient is a 63 year old assigned female at with a history of COPD, ESME, HTN, and CKD presenting to the emergency department today with a cough and nasal congestion. Patient states that over the last week she has had a productive cough with nasal congestion. Patient states that she normally uses oxygen at night but she is feeling the need to use it more. Patient denies any dizziness, lightheadedness, abdominal pain, nausea, vomiting, fever, chills, blurry vision, double vision, loss of vision, chest pain, difficulty breathing, shortness of breath, back pain, night sweats, pain with urination, increased urinary frequency, increased urinary urgency, blood in her urine or stool, syncope or a near syncopal episode, recent trauma or falls, bowel incontinence, bladder incontinence, or any other complaints at this time. Onset (ago): week(s) (1) Relieving factors: none Exacerbating factors: none Associated symptoms: cough Treatments prior to arrival: none Related Data Home Medications ?Medication ?Instructions ?Recorded ?Confirmed bupropion HCl 300 mg 24 hr tablet, 300 mg PO QAM 07/23/21 07/19/23 extended release albuterol sulfate 90 mcg/actuation puff inhalation QID PRN wheezing 11/29/22 03/25/23 aerosol inhaler (Proventil HFA) mirtazapine 30 mg tablet 60 mg PO BEDTIME 12/24/22 07/19/23 risperidone 3 mg tablet 3 mg PO BEDTIME 12/24/22 07/19/23 atorvastatin 10 mg tablet 10 mg PO BEDTIME 05/30/23 07/19/23 aspirin 81 mg tablet,delayed 81 mg PO QAM 04/10/24 release venlafaxine 150 mg 150 mg PO DAILY 04/10/24 capsule,extended release 24 hr famotidine 40 mg tablet 40 mg PO BEDTIME 08/10/24 gabapentin 600 mg tablet 600 mg PO BID 08/10/24 Previous Rx's ?Medication ?Instructions ?Recorded umeclidinium 62.5 mcg-vilanterol 1 ea PO DAILY #60 ea 03/16/24 25 mcg/actuation powdr for inhalation (Anoro Ellipta) wedge pillow #1 ea 06/25/24 omeprazole 20 mg capsule,delayed 20 mg PO BID 90 days #180 caps 08/10/24 release psyllium husk 3.4 gram/5.4 gram 1 tbsp PO DAILY #660 grams 08/10/24 oral powder (Metamucil) doxycycline hyclate 100 mg tablet 100 mg PO BID 7 days #14 tabs 09/24/24 prednisone 20 mg tablet 20 mg PO DAILY 7 days #7 tabs 09/24/24 Allergies Allergy/AdvReac Type Severity Reaction Status Date / Time No Known Allergies Allergy Verified 09/24/24 08:13 [No Known Allergies*] Review of Systems 2 Constitutional: Constitutional: Reports no additional constitutional complaints, Denies chills, Denies fever(s) and Denies night sweats Eyes: Eyes: Reports no additional eye complaints, Denies blurry vision, Denies change in vision, Denies diplopia, Denies eye discharge, Denies loss of vision and Denies eye pain ENT: Denies dizziness and Reports nasal congestion Cardiovascular: Cardiovascular: Reports no additional cardiovascular complaints, Denies chest pain, Denies lightheadedness, Denies Loss of Consciousness and Denies dyspnea Respiratory: Respiratory: Reports no additional respiratory complaints, Reports cough and Denies dyspnea Gastrointestinal: Gastrointestinal: Reports no additional gastrointestinal complaints, Denies abdominal pain, Denies melena, Denies hematochezia, Denies change in bowel habits and Denies change in stool character Genitourinary: Genitourinary: Denies hematuria, Denies urinary frequency, Denies dysuria, Denies urinary incontinence, Denies urinary hesitancy and Denies urinary urgency Musculoskeletal: Musculoskeletal: Reports no additional musculoskeletal complaints, Denies numbness and Denies tingling Neurologic: Denies dizziness, Denies loss of vision, Denies numbness and Denies tingling Psychiatric: Psychiatric: Reports no additional psychiatric complaints Endocrine: Endocrine: Reports no additional endocrine complaints Hematologic/Lymphatic: Hematologic/Lymphatic: Reports no additional hematologic/lymphatic complaints Allergic/Immunologic: Allergic/Immunologic: Reports no additional allergic/immunologic complaints PMFSH Past Medical History Attestation statement: The following information was validated with the patient. Source: old records reviewed and nursing notes reviewed Medical History Chronic constipation History of colon polyps Internal hemorrhoids CVA (cerebral vascular accident) Abdominal pain Barretts esophagus Acid reflux Dyspnea Depression Anxiety Hypertension COPD (chronic obstructive pulmonary disease) Surgical History Hx of colonoscopy History of esophagogastroduodenoscopy (EGD) H/O section History of appendectomy History of cholecystectomy Family History Family History Mother Cancer Maternal Grandmother Cancer Social History Social History Household Members: None Alcohol intake: never Patient Tobacco Use Status: Never used Tobacco Advance Directives: No Advance Directives Information Provided: Yes Current occupational status: disabled Physical Exam ED Vital Signs: Vital Signs - 24 hr 09/24/24 08:11 09/24/24 09:41 09/24/24 10:12 Temperature 98.2 F 98.3 F Pulse Rate 75 75 82 Respiratory Rate 20 18 20 Blood Pressure 99/47 L 119/59 L Pulse Oximetry 95 96 Oxygen Delivery Method Room Air Room Air 09/24/24 10:36 Temperature 98.3 F Pulse Rate 82 Respiratory Rate 20 Blood Pressure 119/59 L Pulse Oximetry 96 Oxygen Delivery Method Room Air BMI result Body Mass Index 35.0 Const General: cooperative, no acute distress, alert and awake Nutritional Appearance: well nourished Orientation/consciousness: patient oriented x3 Limitations: no limitations [facility] Head: Yes normal to inspection and Yes atraumatic Ears: hearing grossly normal bilaterally and external ears normal General nose exam: Normal external nose present, no nasal discharge noted and no epistaxis Face and sinus: Yes normal facial exam, No abrasion and No laceration Mouth: Normal oral and palatal mucosa present, no drooling and no muffled voice Eyes General: appearance normal, both eyes and all related structures Periorbital: periorbital findings normal Eyelids: Yes eyelids normal Conjunctivae: conjunctivae normal Pupils: Equal, round and reactive pupils present EOM: EOMs intact bilaterally Neck Neck: Yes normal visual inspection, Yes full ROM and Yes no lymphadenopathy Chest Chest palpation & inspection: normal inspection of the chest Resp Effort & Inspection: normal respiratory effort and able to speak in complete sentences Auscultation: wheezes scattered wheezes and throughout GI Inspection: Yes normal to inspection Neuro General: patient oriented x3, moves all extremities and CN's II-XI intact bilaterally Cranial nerves: Yes Equal, round and reactive pupils present Cognition (Neuro): normal cognition Extrem General: Yes normal to inspection, Yes full ROM and Yes capillary refill normal Psych Appearance: grossly normal Mental Status: mental status grossly normal Affect: normal affect Attitude: cooperative Thought process: Normal thought process present Thought content: Normal thought content present Insight: Good insight present (Psych) Medications Administered Discontinued Medications Generic Name Dose Route Start Last Admin Trade Name Manan PRN Reason Stop Dose Admin Albuterol/Ipratropium 3 ml 09/24/24 09:30 09/24/24 09:41 Albuterol/Iprat 2.5/0.5mg 3 Ml Ampul.Neb INHALE 09/24/24 09:31 3 ml ONCE ONE Administration Methylprednisolone Sodium Succinate 60 mg 09/24/24 09:17 09/24/24 10:06 Methylprednisolone Sod Succ 125 Mg/2 Ml Vial IM 09/24/24 09:18 60 mg ONCE ONE Administration Medical Decision Making Medical Decision Making [facility] Narrative: Patient is a 63 year old assigned female at with a history of COPD, ESME, HTN, and CKD presenting to the emergency department today with a cough and nasal congestion. Patient's physical exam was as noted in the physical exam portion of this note. Patient's blood work was unremarkable. Patient's EKG was unremarkable. Patient's chest x-ray showed evidence of COPD but no acute process. Patient's clinical presentation is most consistent with a COPD exacerbation. I explained my physical exam findings as well as all test results to the patient. I answered all questions asked by the patient. Patient received a breathing treatment, and solu-medrol which, upon re-evaluation, she stated it helped her symptoms significantly. Patient was able to ambulate throughout the department without becoming hypoxic and without oxygen supplementation. I stressed the importance of the patient taking her medication as directed (either prescribed or as the over the counter packaging recommends). I stressed the importance of the patient following up with her primary care provider. I stressed the importance of the patient returning to the emergency department immediately if her symptoms were to worsen or if she were to develop any dizziness, shortness of breath, difficulty breathing, chest pain, blurry vision, loss of vision, nausea, vomiting, abdominal pain, fever, chills, back pain, or any other complaints. Patient verbalized agreement and understanding with this treatment plan and discharge. Differential Diagnosis Differential Diagnoses: The differential diagnosis associated with the presentation includes Cough Congestion COPD exacerbation PNA Viral illness Admission/Observation Consideration of admission/observation: Escalation of care including admission/observation considered Patient would have been admitted to the hospital had her work up had any findings where hospital admission was appropriate and her clinical presentation warranted hospital admission. Lab Data [facility] Lab Attestation statement: I reviewed the patient's lab results. My interpretation of these results are in the [facility] Rationale portion of this note. 09/24/24 08:26 09/24/24 08:26 Labs: Lab Results 09/24/24 Range/Units 08:26 WBC 7.2 (4.8-10.8) X10*3/uL RBC 3.97 L (4.20-5.50) X10*6/uL Hgb 11.0 L (12.0-16.0) g/dl Hct 32.5 L (37.0-47.0) % MCV 81.9 (80.0-98.0) fL MCH 27.7 (27.0-33.0) pg MCHC 33.8 (31.0-35.0) g/dl RDW 14.2 (11.0-16.0) % Plt Count 185 (160-400) X10*3/uL MPV 11.9 (9.4-12.3) fL Immature Gran % (Auto) 0.3 (0.0-0.4) % Neut % (Auto) 69.8 (45-73) % Lymph % (Auto) 9.5 L (20-40) % [place] % (Auto) 8.8 (2-11) % Eos % (Auto) 10.8 H (0-4) % Baso % (Auto) 0.8 (0-2) % Lymph # (Auto) 0.7 L (1.2-4.9) X10*3/uL [place] # (Auto) 0.6 (0.1-1.2) X10*3/uL Eos # (Auto) 0.8 H (0.0-0.4) X10*3/uL Baso # (Auto) 0.1 (0.0-0.2) X10*3/uL Abs Immat Gran (auto) 0.02 (0.00-0.03) X10*3/uL Absolute Neuts (auto) 5.1 (2.0-8.3) x10*3/uL Absolute Nucleated RBC 0.000 (0.0-0.012) X10*3/uL Nucleated RBC % (auto) 0.0 (0.0-0.2) /100WBC Sodium 143 (135-145) mmol/L Potassium 3.9 (3.3-5.1) mmol/L Chloride 110 H (96-108) mmol/L Carbon Dioxide 27 (22-29) mmol/L Anion Gap 10 L (12-20) BUN 9 (9-16) mg/dL Creatinine 1.16 (0.5-1.4) mg/dL Estim Creat Clear Calc 45.6 Estimated GFR 47 Random Glucose 105 (60-115) mg/dL Calcium 9.2 (8.4-10.2) mg/dL Troponin I High Sens < 2.7 (<3.5-17.0) ng/L Influenza Type A (PCR) NEGATIVE (Negative) Influenza Type B (PCR) NEGATIVE (Negative) RSV RNA Qual (PCR) NEGATIVE (Negative) SARS-CoV-2 RNA (RT-PCR) NEGATIVE (Negative) Independent Interpretation I performed an independent interpretation of an: EKG and Plain X-Ray Interpretation: My interpretation is in agreement with the radiologist's impression of this imaging study. L EXAMINATION: XR CHEST CLINICAL INFORMATION: productive cough COMPARISON: 03/27/2020. CT chest 05/28/2022. TECHNIQUE: 2 views of the chest were obtained. FINDINGS: The cardiac, hilar, and mediastinal contours are normal. Mild aortic calcification. The lungs are mildly hyperaerated, however clear bilaterally. There is no pneumothorax or pleural effusion. There is no focal osseous or soft tissue abnormality. XR/XR chest 2V IMPRESSION: Findings suggestive of COPD. No active superimposed disease. Electronically signed by: Juan Antonio Whittaker MD 09/24/2024 08:46 AM EDT RP Dictated By: Juan Antonio Whittaker MD Signed By: Electronically signed by Juan Antonio Whittaker MD 09/24/24 0846 I independently interpreted this EKG and am in agreement with the below findings: Vent. Rate: 69 BPM Atrial Rate: 69 BPM P-R Int: 172 ms QRS Dur: 94 ms QT Int: 404 ms P-R-T Axes: 59 39 31 degrees QTcB Int: 432 ms Normal sinus rhythm Normal ECG When compared with ECG of 23-Jul-2021 11:12, No significant change was found DD/ [id number] Radiology Impression Discussion of test interpretation with radiology: I have reviewed the radiologist's reading. Prescription Management I considered prescription management with: Antibiotic (patient prescribed an antibiotic for COPD exacerbation) Discharge Plan Discharge Clinical Impression: COPD exacerbation Patient Disposition: Home, Self-Care Instructions: COPD (Chronic Obstructive Pulmonary Disease) (DC) Additional Instructions: Follow up with your primary care provider. Return to the emergency department immediately if your symptoms worsen or if you develop any dizziness, shortness of breath, difficulty breathing, chest pain, blurry vision, loss of vision, nausea, vomiting, abdominal pain, fever, chills, back pain, or any other complaints. Andrew?seguimiento?con fall m?dico de atenci?n primaria. Acuda inmediatamente al servicio de urgencias si ashlyn s?ntomas empeoran o si presenta falta de aliento, dificultad para respirar, dolor tor?cico, mareos, aturdimiento, dolor de espalda, dolor abdominal, fiebre, escalofr?os o cualquier otro s?ntoma. Please see the information below about our Patient Portal. If you are not yet enrolled in the [facility] Patient Portal, you will receive an enrollment email invitation following your visit to any [facility] care setting. You may also self-enroll in the Patient Portal by visiting our website: [email or web address] The following information is required to access the Patient Portal: - Your [facility] Medical Record Number - Your personal home email address (must match what is in your electronic medical record, Registration staff can assist with this) - Name - Date of Capabilities of the Patient Portal: - Message some providers - View upcoming appointments - Access your health summary, medical history, and visit history - View current conditions and allergies - View procedure and lab results - View your medications, including guidelines, side effects, and precautions - Complete pre-appointment questionnaires requested by your provider - Ready summary reports of your office visits and procedures To access the Patient Portal Mobile Gretchen, follow these directions: - Search [facility] in the Gretchen Store or [employer] Store - Download the Gretchen - Search for [facility] - Enter your login/password Portal del paciente Si usted no esta inscrito en el portal de pacientes de [facility], recibira olivier invitacion de inscripcion despues de fall visita al [facility] o al [facility] via correo electronico. Tambien puede inscribirse voluntariamente en el portal de pacientes visitando nuestra pagina web: [email or web address] La siguiente informacion sera requerida para acceder al portal: - Fall marian de historia medica de [facility] - Fall direccion de correo electronico personal - Nombre - Fecha de nacimiento Capacidades: Las siguientes capacidades estan disponibles en el portal de pacientes: - Enviar mensajes a algunos doctores - Verificar proximas citas - Acceso a fall historial de doretha, registro medico e historial de visitas - Junior las condiciones actuales y alergias junior procedimientos y resultados del laboratorio - Junior ashlyn medicamentos, incluyendo las pautas - Efectos secundarios y precauciones - Completar o llenar formularios / cuestionarios de - Citas solicitadas por fall doctor - Leer los resumenes de reportes medicos de ashlyn visitas y procedimientos Delmis acceder a la aplicacion movil: - [facility] en la Gretchen Store o [employer] Store - Descargue la aplicacion - [facility] - Ingrese fall nombre de usuario / Contrasena Prescriptions: New prednisone 20 mg tablet 20 mg PO DAILY 7 Days Qty: 7 0RF doxycycline hyclate 100 mg tablet 100 mg PO BID 7 Days Qty: 14 0RF No Action Anoro Ellipta 62.5-25 mcg/actuation blister with device 1 ea PO DAILY Qty: 60 6RF omeprazole 20 mg capsule,delayed release(DR/EC) 20 mg PO BID 90 Days Qty: 180 0RF Metamucil 3.4 gram/5.4 gram powder 1 tbsp PO DAILY Qty: 660 0RF Rx Instructions: mix into at least 8 oz of water or juice before administering bupropion HCl 300 mg tablet extended release 24 hr 300 mg PO QAM gabapentin 600 mg tablet 600 mg PO BID (DME) wedge pillow See Rx Instructions .Route .MEDSUPPLY Qty: 1 0RF Rx Instructions: As directed albuterol sulfate [Proventil HFA] 90 mcg/actuation HFA aerosol inhaler inhalation QID PRN (Reason: wheezing) mirtazapine 30 mg tablet 60 mg PO BEDTIME risperidone 3 mg tablet 3 mg PO BEDTIME atorvastatin 10 mg tablet 10 mg PO BEDTIME venlafaxine 150 mg capsule,extended release 24hr 150 mg PO DAILY aspirin 81 mg tablet,delayed release (DR/EC) 81 mg PO QAM famotidine 40 mg tablet 40 mg PO BEDTIME Referrals: Shannon Ordaz MD [Primary Care Provider] - Interventions: ED Discharge Assessment Last Done: 09/24/24 10:36 Discharge Date/Time: 09/24/24 10:36 Print Language: Korean
[2024-09-24 09:14] LABS: Influenza A PCR NEGATIVE (Negative); Influenza B PCR NEGATIVE (Negative); Resp Syncy Virus RNA Qual PCR NEGATIVE (Negative); SARS COV2 PCR INHOUSE NEGATIVE (Negative)
[2024-09-24 09:41] VITALS: PULSE 75; RESP 18; O2SAT 95
[2024-09-24] MEDS: Albuterol/Iprat 2.5/0.5MG 3 ML AMPUL.NEB INHALE (09:41)
[2024-09-24] MEDS: methylPREDNISolone Sod Succ 125 MG/2 ML VIAL 60 MG IM (10:06)
[2024-09-24 10:12] VITALS: BP 119/59; PULSE 82; RESP 20; TEMP 36.8; O2SAT 96
--- NOTE | 2024-09-24 10:12 | PC.NURSE ---
ambulaytion trial - pt spO2 stayed at 96 during ambulation. HR low 80s.
[2024-09-24 10:36] VITALS: BP 119/59; PULSE 82; RESP 20; TEMP 36.8; O2SAT 96
== END 2024-09-24 10:36 | disposition home or self-care (01) ==
PROVIDERS: Emergency Provider Emergency Medicine; PCP Internal Medicine
DX: J44.1 Chronic obstructive pulmonary disease with (acute) exacerbation (principal); R05.9 Cough, unspecified; Z03.818 Encounter for observation for suspected exposure to other biological agents ruled out; Z79.899 Other long term (current) drug therapy
CPT/HCPCS: 0241U; 36415; 71046; 80048; 84484; 85025; 93005; 94640; 96372; 99284; J2919

== ENCOUNTER → 2024-09-24 08:13 | Outpatient (BNV) | payer MEDICARE, MEDICAID, SELFPAY | PROVIDERS: Emergency Provider Emergency Medicine; PCP Internal Medicine; Visit Provider Internal Medicine | DX: R07.9 Chest pain, unspecified (principal) | CPT/HCPCS: 93010 ==

== ENCOUNTER → 2024-09-24 08:13 | Outpatient (BNV) | payer MEDICARE, MEDICAID, SELFPAY | PROVIDERS: PCP Internal Medicine; Visit Provider Radiology Diagnostic Radiology | DX: R05.9 Cough, unspecified (principal) | CPT/HCPCS: 71046 ==

== ENCOUNTER 2024-12-06 13:38 | Outpatient (REF) | payer MEDICARE, MEDICAID, SELFPAY ==
[2024-12-06 13:55] LABS: MANUAL DIFF FLAG NO
[2024-12-06 14:36] LABS: Basophils Absolute Auto 0.1 X10*3/uL (0.0-0.2); Basophils Percent Auto 0.6 % (0-2); Eosinophils Absolute Auto 0.5 X10*3/uL (0.0-0.4); Eosinophils Percent Auto 5.3 % (0-4); Hematocrit 32.8 % (37.0-47.0); Hemoglobin 10.8 g/dl (12.0-16.0); Imm Gran Abs Auto 0.04 X10*3/uL (0.00-0.03); Imm Gran Pct Auto 0.4 % (0.0-0.4); Lymphocytes Absolute Auto 1.1 X10*3/uL (1.2-4.9); Lymphocytes Percent Auto 12.1 % (20-40); Mean Corpuscular HGB Conc 32.9 g/dl (31.0-35.0); Mean Corpuscular Hemoglobin 27.1 pg (27.0-33.0); Mean Corpuscular Volume 82.4 fL (80.0-98.0); Monocytes Absolute Auto 0.8 X10*3/uL (0.1-1.2); Neutrophils Absolute Auto 6.5 x10*3/uL (2.0-8.3); Neutrophils Percent Auto 72.6 % (45-73); Platelet Count 190 X10*3/uL (160-400); Red Blood Count 3.98 X10*6/uL (4.20-5.50); Red Cell Distribution Width 15.5 % (11.0-16.0)
[2024-12-06 14:57] LABS: Anion Gap 11 (12-20); Blood Urea Nitrogen 15 mg/dL (9-16); Carbon Dioxide 27 mmol/L (22-29); Chloride 107 mmol/L (96-108); Estimated Glomerular Filt Rate 54; Potassium 4.1 mmol/L (3.3-5.1); Sodium 141 mmol/L (135-145)
[2024-12-06 15:07] LABS: Lactate Dehydrogenase 240 U/L (122-220)
[2024-12-06 15:14] LABS: Creatinine Urine 77.03 mg/dL; Total Protein Urine Random < 7 mg/dL (<12)
--- OUTSIDE RECORDS SUMMARY | 2024-12-06 15:59 | XMS_ITS | Encounter Summary ---
Author Organization [employer] Address [address] [place] [address] Care Team Providers Care Gift Officer Name Role Phone Shannon Ordaz MD Primary Care Provider + Benjie Pineda Unavailable Unavailable Reason for Visit * Reason Comments Med Refill Encounter Details Date Type Department Care Team ([facility] st Contact Info) Description 08/30/2023 Refill [facility] [address] [place], [place] [phone] Shannon Ordaz MD [address] [place] [address] Social History Tobacco Use Types Packs/Day Years [...] documented as of this encounter Care Teams Gift Officer Relationship Specialty Start Date End Date Shannon Ordaz MD [address] [place] [address] PCP - General Family Medicine 06/11/19 Benjie Pineda FNP [address] [place] [address] Nurse Practitioner Family Medicine 05/23/23 [facility] 04/25/24 05/03/24 [facility] 08/28/24 [facility] 11/23/24 documented as of this encounter
== END 2024-12-06 13:39 | disposition home or self-care (01) ==
LOC: HO.LAB 13:38
PROVIDERS: PCP Internal Medicine; Visit Provider Internal Medicine Nephrology
DX: I12.9 Hypertensive chronic kidney disease with stage 1 through stage 4 chronic kidney disease, or unspecified chronic kidney disease (principal); N18.31 Chronic kidney disease, stage 3a; D72.10 Eosinophilia, unspecified; R76.8 Other specified abnormal immunological findings in serum; N17.9 Acute kidney failure, unspecified
CPT/HCPCS: 36415; 80051; 82565; 82570; 83615; 84156; 84520; 85025

== ENCOUNTER 2024-12-12 11:15 | Outpatient (AMB) | payer MEDICARE, MEDICAID, SELFPAY ==
--- NOTE | 2024-12-12 11:20 | HO.NEPHOV ---
Vital Signs 12/12/24 11:25 Height 5 ft Weight 181 lb 6 oz BMI 35.4 BP 108/60 Blood Pressure Location Rt brachial Position Sitting Pulse 80 Pulse Source Pulse Oximeter Pulse Oximetry (%) 97 Oxygen Delivery Method Room Air Intake Visit Reasons: CKD-Conf Conditioning Machine Operator Required: Yes Conditioning Machine Operator Language: Case Manager Services: Conditioning Machine Operator Offered & Declined ([facility] Conditioning Machine Operator services refused/pt accompanied by daughter ) Accompanied by: Daughter Allergies No Known Allergies (No Known Allergies*) Allergy (Verified 12/12/24 11:24) HPI Comments Details: Gabrielle was seen in follow up for chronic kidney disease and hypertension. She recently had generalized weakness & MUSHTAQ at that time with her serum creatinine going up to 1.74. Lisinopril was held and was given IV fluids. Her serum creatinine settled to baseline. She has lot of arthritic issues and has a H/O taking nonsteroidals as needed basis. She denies any coronary artery disease, congestive heart failure, carotid stenosis, CVA, renal artery stenosis or peripheral arterial disease. She has not a diabetic. She denies any nausea vomiting or diarrhea, pedal edema, shortness of breath, paroxysmal nocturnal dyspnea, orthopnea, orthostatic symptoms, hematuria or urinary symptoms. She has history of CVA. She feels improved and does not have any new complaints now [facility] Medical History Chronic constipation History of colon polyps Internal hemorrhoids CVA (cerebral vascular accident) Abdominal pain Barretts esophagus Acid reflux Dyspnea Depression Anxiety Hypertension COPD (chronic obstructive pulmonary disease) Surgical History Hx of colonoscopy History of esophagogastroduodenoscopy (EGD) H/O section History of appendectomy History of cholecystectomy Family History Mother Cancer Maternal Grandmother Cancer Social History Household Members: None Alcohol intake: never Patient Tobacco Use Status: Never used Tobacco Current occupational status: disabled Review of Systems Const All systems reviewed & are unremarkable except as noted in HPI and below Physical Exam Const General: comfortable and no acute distress Orientation/consciousness: patient oriented x3 HEENT Head: Yes normocephalic Mouth: Normal oral and palatal mucosa present Eyes EOM: EOMs intact bilaterally Neck Neck: Yes supple Resp Auscultation: clear to auscultation bilaterally Cardio Jugular venous distension: no JVD Rate: regular rate GI Palpation (GI): Soft to palpation Auscultation: normal bowel sounds General: Yes no CVA tenderness Back/Spine/Pelvis Back: no CVA tenderness Skin General skin exam: no rashes or lesions noted Neuro General: patient oriented x3 and moves all extremities Extrem General: Yes no pedal edema Results Reviewed Nephrology Results: Hgb, (12.0-16.0) 10.8 g/dl L 12/06/24 WBC, (4.8-10.8) 9.0 X10*3/uL 12/06/24 Plt Count, (160-400) 190 X10*3/uL 12/06/24 Sodium, (135-145) 141 mmol/L 12/06/24 Potassium, (3.3-5.1) 4.1 mmol/L 12/06/24 Chloride, (96-108) 107 mmol/L 12/06/24 Carbon Dioxide, (22-29) 27 mmol/L 12/06/24 BUN, (9-16) 15 mg/dL 12/06/24 Creatinine, (0.5-1.4) 1.02 mg/dL 12/06/24 Calcium, (8.4-10.2) 9.2 mg/dL 09/24/24 Urine Creatinine 77.03 mg/dL 12/06/24 Protein/Creatinin Ratio TNP 12/06/24 Renal US 10/17/23 Assessment & Plan Assessment & Plan (1) CKD (chronic kidney disease) stage 3, GFR 30-59 ml/min: Code(s): N18.30 - Chronic kidney disease, stage 3 unspecified Category: Medical Qualifiers: Chronic kidney disease stage 3 subtype: stage 3a (GFR 45-59) Qualified Code(s): N18.31 - Chronic kidney disease, stage 3a Plan She recently had MUSHTAQ at that time with her serum creatinine going up to 1.74. Lisinopril was held and was given IV fluids. Her serum creatinine settled to baseline.She has CKD stage 3 due to vascular disease. I plan to do a Doppler of her renal arteries with time. She does not have any significant proteinuria. She should avoid nonsteroidal anti-inflammatories and maintain good hydration. I did not make any medication changes today. Follow-up appointment given Orders: Orders Creatinine 6 Months N18.31 - Chronic kidney disease, stage 3a Blood Urea Nitrogen 6 Months N18.31 - Chronic kidney disease, stage 3a Electrolytes 6 Months N18.31 - Chronic kidney disease, stage 3a Protein Creatinine Ratio, Ur 6 Months N18.31 - Chronic kidney disease, stage 3a Coding Level of Care Code Est Pt Level 4 (29845) Diagnoses Stage 3a chronic kidney disease N18.31 Chronic kidney disease stage 3 subtype: stage 3a (GFR 45-59)
[2024-12-12 11:25] VITALS: BP 108/60; PULSE 80; O2SAT 97; BMI 35.4
--- OUTSIDE RECORDS SUMMARY | 2024-12-12 13:03 | XMS_ITS | Encounter Summary ---
Author Organization [employer] Address [address] [facility] 7t [place] [address] Care Team Providers Care Marketing Analytics Lead Name Role Phone Shannon Ordaz MD Primary Care Provider + Benjie Pineda Unavailable Unavailable Reason for Visit * Reason Comments Med Refill Encounter Details Date Type Department Care Team ([facility] st Contact Info) Description 08/30/2023 Refill [facility] [address] [place], [place] [phone] Shannon Ordaz MD [address] [place] [address] Social History Tobacco Use Types Packs/Day Years [...] Care Team (Late st Contact Info) Description 12/24/2024 1:00 PM EDT Office Visit [facility] [address] [place] [address] Shannon Ordaz MD [address] [place] [address] documented as of this encounter Visit Diagnoses Not on filedocumented in this encounter Additional Health Concerns Assessment Noted Time PHQ-9 Depression Total Score: 2 08/02/19 24 9:41 AM EST documented as of this encounter Care Teams Marketing Analytics Lead Relationship Specialty Start Date End Date Shannon Ordaz MD [address] [place] [address] PCP - General Family Medicine 06/11/19 Benjie Pineda FNP [address] [place] [address] Nurse Practitioner Family Medicine 05/23/23 [facility] 04/25/24 05/03/24 [facility] 08/28/24 marco 11/23/24 documented as of this encounter
== END 2024-12-12 11:51 | disposition home or self-care (01) ==
LOC: HO.HKA 11:16
PROVIDERS: PCP Internal Medicine; Visit Provider Internal Medicine Nephrology
DX: N18.31 Chronic kidney disease, stage 3a (principal)
CPT/HCPCS: 99214

== ENCOUNTER → 2024-12-12 11:15 | Outpatient (BNVA) | payer MEDICARE, MEDICAID, SELFPAY | PROVIDERS: PCP Internal Medicine; Visit Provider Internal Medicine Nephrology | DX: N18.31 Chronic kidney disease, stage 3a (principal) | CPT/HCPCS: 99212 ==

== ENCOUNTER 2025-03-22 | Outpatient (REF) | payer MEDICARE, MEDICAID, SELFPAY ==
--- OUTSIDE RECORDS SUMMARY | 2025-04-08 10:55 | XMS_ITS | Encounter Summary ---
Author Organization [employer] Address [address] [facility] 7t [place] [address] Care Team Providers Care Picker Operator Name Role Phone Shannon Ordaz MD Primary Care Provider + Benjie Pineda Unavailable Unavailable Reason for Visit * Reason Onset Date Comments FYI 03/22/2024 Encounter Details Date Type Department Care Team ([facility] st Contact Info) Description 03/22/2024 Telephone [facility] [address] [place], [place] [phone] Shannon Ordaz MD [address] [place], [place] [phone] FYI Social History Tobacco Use Types Packs/Day [...] 8:53 AM EDT Tc from [facility] calling to inform the provider attempted to start services on 03/22 however patient refused due to having a Cardiology appt will re attempt on 03/23 to start services documented in this encounter Plan of Treatment Upcoming Encounters Date Type Department Care Team (Late st Contact Info) Description 04/17/2025 10:30 AM EDT Clinical Support [facility] [address] [place] [address] Kierra Carbajal, ESTELLE 07/12/2025 2:00 PM EST Office Visit [facility] [address] [place] [address] Raina Hathaway, OD [address] [place] [address] documented as of this encounter Goals Goal [...] Date End Date Shannon Ordaz MD [address] [place] [address] PCP - General Family Medicine 06/11/19 Benjie Pineda FNP [address] [place] [address] Nurse Practitioner Family Medicine 05/23/23 [facility] 04/25/24 05/03/24 [facility] 08/28/24 [email or web address] 11/23/24 documented as of this encounter
--- OUTSIDE RECORDS SUMMARY | 2025-04-08 10:55 | XMS_ITS | Encounter Summary ---
Author Organization [employer] Address [address] [facility] 7t [place] [address] Care Team Providers Care Woven Paper Hat Mender Name Role Phone Shannon Ordaz MD Primary Care Provider + Benjie Pineda Unavailable Unavailable Reason for Visit * Reason Onset Date Comments Med Refill 02/21/2025 Encounter Details Date Type Department Care Team (Late st Contact Info) Description 02/21/2025 Refill [facility] [address] [place], [place] [phone] Shannon Ordaz MD [address] [place], [place] [phone] Major depressive disorder, recurrent episode with mood-congruent [...] 10:30 AM EDT Clinical Support [facility] [address] [place] [address] Kierra Carbajal RN 07/12/2025 2:00 PM EST Office Visit [facility] [address] [place] [address] Rivas, Raina, OD [address] [place] [address] documented as of this encounter Goals Goal [...] documented as of this encounter Care Teams Woven Paper Hat Mender Relationship Specialty Start Date End Date Shannon Ordaz MD [address] [place] [address] PCP - General Family Medicine 06/11/19 Benjie Pineda FNP [address] [place] [address] Nurse Practitioner Family Medicine 05/23/23 [facility] 08/28/24 elara 11/23/24 documented as of this encounter
--- OUTSIDE RECORDS SUMMARY | 2025-04-08 10:55 | XMS_ITS | Encounter Summary ---
Author Organization [employer] Address [address] [facility] [address] [place] [address] Care Team Providers Care Inspector Plating Name Role Phone Shannon Ordaz MD Primary Care Provider + Benjie Pineda Unavailable Unavailable Reason for Visit * Reason Comments Med Refill Encounter Details Date Type Department Care Team ([facility] st Contact Info) Description 08/30/2023 Refill [facility] [address] [place], [place] [phone] Shannon Ordaz MD [address] [place] [address] Social History Tobacco Use Types Packs/Day Years [...] Description 04/17/2025 10:30 AM EDT Clinical Support [facility] [address] [place] [address] Kierra Carbajal RN 07/12/2025 2:00 PM EST Office Visit [facility] [address] [place] [address] Rivas, Raina, OD [address] [place] [address] documented as of this encounter Visit Diagnoses Not on filedocumented in this encounter Additional Health Concerns Assessment Noted Time PHQ-9 Depression Total Score: 2 08/02/19 24 9:41 AM EST documented as of this encounter Care Teams Inspector Plating Relationship Specialty Start Date End Date Shannon Ordaz MD [address] [place] [phone] PCP - General Family Medicine 06/11/19 Benjie Pineda FNP [address] [place] [phone] Nurse Practitioner Family Medicine 05/23/23 [facility] 04/25/24 05/03/24 [facility] 08/28/24 marco 11/23/24 documented as of this encounter
--- OUTSIDE RECORDS SUMMARY | 2025-04-08 10:55 | XMS_ITS | Encounter Summary ---
Author Organization [employer] Address [address] [facility] [address] [place] [address] Care Team Providers Care Case Monitor Name Role Phone Shannon Ordaz MD Primary Care Provider + Benjie Pineda Unavailable Unavailable Encounter Details Date Type Department Care Team (Late st Contact Info) Description 04/24/2024 Orders Only [facility] [address] [place] [address] ProviderYarelis MD Social History Tobacco Use Types [...] AM EDT Clinical Support [facility] [address] [place], [place] [phone] Kierra Carbajal RN 07/12/2025 2:00 PM EST Office Visit [facility] [address] [place], [place] [phone] Raina Hathaway, OD [address] [place] [address] documented as of this encounter Goals Goal [...] documented as of this encounter Care Teams Case Monitor Relationship Specialty Start Date End Date Shannon Ordaz MD [address] [place] [address] PCP - General Family Medicine 06/11/19 Benjie Pineda FNP [address] [place] [address] Nurse Practitioner Family Medicine 05/23/23 [facility] 04/25/24 05/03/24 [facility] 08/28/24 marco 11/23/24 documented as of this encounter
--- OUTSIDE RECORDS SUMMARY | 2025-04-08 10:55 | XMS_ITS | Encounter Summary ---
Author Organization [employer] Address [address] [facility] 7t [place] [address] Care Team Providers Care Bobbin Trucker Name Role Phone Shannon Ordaz MD Primary Care Provider + Benjie Pineda Unavailable Unavailable Encounter Details Date Type Department Care Team (Late st Contact Info) Description 04/04/2025 Refill [facility] [address] [place], [place] [phone] Shannon Ordaz MD [address] [place], [place] [phone] Mixed hyperlipidemia Social History Tobacco Use Types Packs/Day Years [...] Description 04/17/2025 10:30 AM EDT Clinical Support [facility] [address] [place] [address] Kierra Carbajal RN 07/12/2025 2:00 PM EST Office Visit [facility] [address] [place] [address] Raina Hathaway, OD [address] [place] [address] documented as of this encounter Goals Goal [...] this encounter Visit Diagnoses Diagnosis Mixed hyperlipidemia documented in this encounter Additional Health Concerns Assessment Noted Time PHQ-9 Depression Total Score: 8 03/22/20 25 12:07 PM EDT documented as of this encounter Care Teams Bobbin Trucker Relationship Specialty Start Date End Date Shannon Ordaz MD [address] [place] [address] PCP - General Family Medicine 06/11/19 Benjie Pineda FNP [address] [place] [phone] Nurse Practitioner Family Medicine 05/23/23 [facility] 08/28/24 [email or web address] 11/23/24 documented as of this encounter
--- OUTSIDE RECORDS SUMMARY | 2025-04-08 10:55 | XMS_ITS | Clinical Summary ---
Author Organization [employer] Address [address] [facility] [address] [place] [address] Care Team Providers Care Mechanical Reliability Engineer Name Role Phone Brooks Smith MD Primary [...] directed by MD. 30 patch 1 Active Aspirin Low Dose 81 MG EC [...] the right eye 3 times daily. Active triamcinolone (Kenalog) 0.1 % cream Apply topically if needed in the morning and at bedtime (pain and swelling). 30 g 2 025 Active gabapentin (Neurontin) 600 MG tabletIndications :Anxiety and depression TAKE 1 TABLET BY MOUTH TWICE DAILY IN THE MORNING AND AT BEDTIME 60 tablet 11 Active mirtazapine (Remeron) 15 MG tablet Take 1 tablet (15 mg) by mouth if needed each day (anxiety). 30 tablet 025 Active mirtazapine (Remeron) 45 MG tablet TAKE 1 TABLET BY MOUTH AT BEDTIME 30 tablet 025 Active naloxone (Narcan) 4 mg/0.1 mL nasal sprayIndications: Long-term current use of benzodiazepine Administer 1 spray (4 mg) into affected nostril(s) if needed for opioid reversal. May repeat every 2-3 minutes if needed, alternating nostrils, until medical assistance becomes available. 2 each 3 025 2025 Active docusate sodium (Colace) 100 MG capsuleIndication [...] start before March 21, 2025. 28 tablet 025 Active buPROPion XL (Wellbutrin XL) 150 MG 24 hr tabletIndications :Major depressive disorder, recurrent episode with mood-congruent psychotic features (CMS/HCC) (HCC) TAKE 1 TABLET BY MOUTH EVERY MORNING 30 tablet 1 025 Active atorvastatin (Lipitor) 10 MG tabletIndications :Mixed hyperlipidemia TAKE 1 TABLET BY MOUTH AT BEDTIME 90 tablet 3 025 Active atorvastatin (Lipitor) 10 MG tabletIndications :Mixed hyperlipidemia TAKE 1 TABLET BY MOUTH AT BEDTIME 90 tablet 025 2024 Discontinued buPROPion XL (Wellbutrin XL) 150 MG 24 hr tabletIndications :Major depressive disorder, recurrent episode with mood-congruent psychotic features (CMS/HCC) (HCC) Take 1 tablet (150 mg) by mouth in the morning. 30 tablet 1 025 2024 Discontinued LORazepam (Ativan) 0.5 MG tabletIndications :Major depressive disorder, recurrent episode with mood-congruent psychotic features (CMS/HCC) (HCC) Take 1 tablet (0.5 mg) by mouth if needed at bedtime for anxiety. 28 tablet 025 2024 Discontinued(R eorder (will not trigger notification to Pharmacy)) atorvastatin (Lipitor) 10 MG tabletIndications :Mixed hyperlipidemia TAKE 1 TABLET BY MOUTH AT BEDTIME 90 tablet 025 2024 Discontinued(D uplicate order (will not trigger notification to Pharmacy)) Active [...] prevent accidents at home. She has a [employer]BUL[employer] to help with ADLs, I told patient to avoid any activity that can put her at risk , that otherwise is to be assisted by [employer] . Anemia 02/13/2024 Assessment & Plan (01/17/2025 [...] stable. I tld her to call [place] [facility] [place] lumbar epidural injections [...] flonase until symptoms have resolved. COPD exacerbation (CMS/HCC) 01/13/2023 Assessment & Plan (11/23/2024 3:43 PM [...] r ecurrent episode with mood-congruent psychotic features (CMS/[facility]) 05/31/2022 Assessment & Plan (11/15/2023 12:00 PM [...] continue advair 500 BID and fu with software reliability engineer use ProAir once per day, may [...] evaluation. Patient agreed with POC, they will picker / packer mirtazapine today and will get back to [...] preserved EF (last echo on 04/19/23 at [facility] showed EF 60% with no WM [...] 11:30 am, information was given to follow [facility] cardiology Check BMP, will call her to adjust bumex (pt cont to be on once /day only) Diabetes due to undrl condit ion w oth diabetic neuro comp 06/02/2023 08/01/2023 Assessment & [...] Closed fracture of fifth lum bar vertebra ([facility]) 11/15/2022 11/23/2024 Assessment & Plan (09/04/2024 [...] Severe obesity (BMI 35.0-39. 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 Date Type Department Care Team Description 04/04/2025 Refill [facility] [address] [place] [address] Brooks Smith MD Mixed hyperlipidemia 04/04/2025 Refill [facility] [address] [place], [place] [phone] Brooks Smith MD Mixed hyperlipidemia 03/29/2025 Refill [facility] [address] [place], [place] [phone] Gabrielle Howard MD Major depressive disorder, recurrent episode with mood-congruent psychotic features (CMS/HCC) ([facility]) 03/28/2025 Orders Only [facility] [address] [place] [address] [phone] Brooks Smith MD 03/26/2025 Telephone [facility] [address] [place] [address] [phone] Brooks Smith MD verbal orders 03/22/2025 11:30 AM EDT Procedure Visit [facility] [address] [place] [address] [phone] Brooks Smith MD Encounter for cervical Pap smear with pelvic exam (Primary Dx); Cervicitis; Subacute vaginitis; Encounter for vaccination 03/22/2025 Orders Only [facility] [address] [facility] [place] [address] Brooks Smith MD 03/22/2025 Travel 03/21/2025 Telephone [facility] [address] [facility] [place] [address] Brooks Smith MD chart prep 03/18/2025 10:30 AM EDT Clinical Support [facility] [address] [facility] [place] [address] Kierra Carbajal, RN Long-term current use of benzodiazepine (Primary Dx) 03/18/2025 Refill [facility] [address] [place] [address] Kierra Carbajal RN Major depressive disorder, recurrent episode with mood-congruent psychotic features (CMS/HCC) 03/18/2025 Travel 03/06/2025 Refill [facility] PED[facility] [address] [place], [place] [phone] Brooks Smith MD Slow transit constipation; Hypertensive emergency; Mixed hyperlipidemia 02/26/2025 2:30 PM EDT Telemedicine [facility] [address] [place] [address] Larissa Beauchamp RN Abscess 02/26/2025 Travel 02/21/2025 Refill [facility] [address] [place] [address] Brooks Smith MD Major depressive disorder, recurrent episode with mood-congruent psychotic features (CMS/HCC) 02/21/2025 Refill [facility] [address] [place] [address] Brooks Smith MD Major depressive disorder, recurrent episode with mood-congruent psychotic features (CMS/HCC) 02/20/2025 Telephone [facility] [address] [place] [address] Brooks Smith MD Med Refill 02/20/2025 Refill [facility] [address] [place] [address] Brooks Smith MD Major depressive disorder, recurrent episode with mood-congruent psychotic features (CMS/HCC) 02/20/2025 Refill [facility] [address] [place] [address] Kierra Carbajal RN Major depressive disorder, recurrent episode with mood-congruent psychotic features (CMS/HCC) 02/13/2025 Refill [facility] [address] [place] [address] Brooks Smith MD Major depressive disorder, recurrent episode with mood-congruent psychotic features (CMS/HCC) 02/07/2025 11:30 AM EDT Clinical Support [facility] [address] [place] [phone] Kierra Carbajal, RN Long-term current use of benzodiazepine (Primary Dx) 02/07/2025 Refill [facility] [address] [place] [phone] Brooks Smith MD Major depressive disorder, recurrent episode with mood-congruent psychotic features (CMS/HCC) 02/07/2025 Refill [facility] [address] [place] [phone] Kierra Carbajal RN Long-term current use of benzodiazepine (Primary Dx) 02/07/2025 Travel 01/21/2025 Telephone [facility] [address] [place] [phone] Brooks Smith MD Med Refill 01/21/2025 Refill [facility] [address] [place] [address] Brooks Smith MD Major depressive disorder, recurrent episode with mood-congruent psychotic features (CMS/HCC) 01/17/2025 11:30 AM EDT Office Visit [facility] [address] [place] [phone] Brooks Smith MD Diarrhea, unspecified type (Primary Dx); Anxiety; MUSHTAQ (acute kidney injury) (CMS/HCC); Bacterial gastroenteritis; Anxiety and depression; Anemia, unspecified type 01/17/2025 Travel 01/16/2025 Telephone [facility] [address] [place] [phone] Brooks Smith MD chart prep 01/10/2025 Refill [facility] [address] [place] [address] Brooks Smith MD Anxiety and depression 01/08/2025 Refill [facility] [address] [place] [address] Brooks Smith MD Anxiety and depression; Mixed hyperlipidemia 01/07/2025 Telephone [facility] [address] [place] [address] Brooks Smith MD February01/07/2025 Refill [facility] [address] [place] [address] Brooks Smith MD Mixed hyperlipidemia; Anxiety and depression from Last 3 Months Immunizations Immunization Administration [...] your housing situation today? I have adelfo sing 12/24/[address] you li [...] Support [facility] [address] [place] [address] Kierra Carbajal, RN 07/12/2025 2:00 PM EST Office Visit [facility] OPTOMETRY [address] [place] [address] Raina Hathaway, OD [address] [place] [address] Health Maintenance Due Date Last Done Comments [...] 01/09/2024, 06/03/2020, 10/18/2018 Cervical Cancer Screening Discontinued HPV/Cotest Discontinued 03/22/2025, 05/17/2018 Pap Smear Discontinued 03/22/2025 HIB Vaccines Aged [...] POSSIBLE HEMATOLOGY Routine 03/28/2025 3:05 PM EDT PROTEIN CREATININE RATIO, URINE Routine 03/28/2025 3:05 PM EDT CREATININE, SERUM Routine 03/28/2025 3:0 5 PM EDT UREA NITROGEN (BUN) Routine 03/28/2025 3 :05 PM EDT ELECTROLYTE PANEL Routine 03/28/2025 3:0 5 PM EDT PAP SMEAR Routine 03/22/2025 12:12 PM EDT Encounter for cervical Pap smear with pelvic exam HPV DNA, LOW/HIGH RISK Routine 03/22/2025 12:12 PM EDT POCT YANIRA-14 URINE DRUG SCREEN Routine 03/18/2025 [...] diagnosis of hypertension TIA (transient ischemic attack) from Last 3 Months or Most Recently Relevant to Health Maintenance Results * Hold Lavender - Possible Hematology (03/28/2025 3:05 PM EDT) Hold Lavender - Possible Hematololgy SEE NOTE [facility] Comment:Specimen will be hel d untested for 8 hours. Call Hematologyif testing is desired. 03/28/2025 3:05 PM EDT 03/28/2025 4:22 PM EDT us Brooks Smith MD HISTORICAL/NON ORDERABLE LABS Final Result [facility] [address] [place] [address] [phone] * Protein Creatinine Ratio, Urine (03/28/2025 3:05 PM EDT) Creatinine, Urine 62.32 mg/dL [facility] Protein, Total, Random Urine <7 <12 mg/dL [facility] Protein/Creatin ine Ratio, Ur TNP <0.2 [facility] Comment:Unable to calculate urine protein creatinine ratio due tolow creatinine or protein result. 03/28/2025 3:05 PM EDT 03/28/2025 4:03 PM EDT us Generic External Data Provider LAB URINE ORDERAB LES Final Result Performing Organization Address [facility] de Phone Number [facility] [address] [place] [phone] * Creatinine, Serum (03/28/2025 3:05 PM EDT) Creatinine, Serum 1.01 0.5 - 1.4 mg/dL [facility] Estimated Glomerular Filt Rate 55 [facility] Comment:Chronic Kidney Disea se: Estimated GFR < 60 mL/min/1.39s8Eefusq Kidney Disease: Estimated GFR < 15 mL/min/1.73m2 03/28/2025 3:05 PM EDT 03/28/2025 4:11 PM EDT Generic External Data Provider LAB BLOOD ORDERAB LES Final Result Performing Organization Address [facility] Phone Number [facility] [address] [place] [phone] * BUN (Blood Urea Nitrogen) (03/28/2025 3:05 PM EDT) Urea Nitrogen (BUN) 14 9 - 16 mg/dL [facility] 03/28/2025 3:05 PM EDT 03/28/2025 4:11 PM EDT Generic External Data Provider LAB BLOOD ORDERAB LES Final Result Performing Organization Address [facility] Co de Phone Number [facility] [address] [place] [phone] * (ABNORMAL) Electrolyte Panel (03/28/2025 3:05 PM EDT) Sodium 143 135 - 145 mmol/L [facility] Potassium 4.2 3.3 - 5.1 mmol/L [facility] Chloride 108 96 - 108 mmol/L [facility] Carbon Dioxide 31(H) 22 - 29 mmol/L [facility] Anion Gap 8(L) 12 - 20 [facility] 03/28/2025 3:05 PM EDT 03/28/2025 4:11 PM EDT us Generic External Data Provider LAB BLOOD ORDERAB LES Final Result Performing Organization Address [facility] Co de Phone Number [facility] [address] [place] [phone] * HPV DNA, Low/High Risk (03/22/2025 12:12 PM EDT) HPV High Risk Negative Negative [facility] HPV Genotype 16 Negative Negative [facility] HPV Genotype 18 Negative Negative [facility] Comment:HPV testing performe d at (CLIA#[id number]), [address] [place] [address].Testing for HPV was performed using the [employer] A[employer]A 6800system. The presence of HPV in the female genital tract isassociated with a number of diseases, including cervicalcarcinoma. The HPV DNA high risk pool tests for HPV 31, 33,35, 39, 45, 51, 52, 56, 58, 59, 66 and 68. The testing forHPV 16 and 18 genotypes has also been performed. A positiveresult indicates detection of nucleic acid sequences fromone or more subtypes, whereas a negative result indicatessuch sequences were not detected. 03/22/2025 12:1 2 PM EDT 03/25/2025 6:46 AM EDT us Brooks Smith MD LAB BLOOD ORDERABLES Fin al Result Performing Organization Address [facility]/ZIP Co de Phone Number [facility] [address] [place] [phone] * Pap Smear (03/22/2025 12:12 PM EDT) Swab Cervical swab / Unknown 03/22/2025 12:12 PM EDT 03/25/2025 6:37 AM EDT Rico [facility] - 03/28/2025 10:49 AM EDT ----- ------- Name: Gabrielle Street Age/Sex: 64/F : 1960 Unit#: [id number] Attend Dr: Re03/22/25 Status: PRE [facility] Location: [facility] Disch: ----- ------- SPEC : [id number] RECD: 03/25/25 STATUS: CATRINA WANG NUM: [id number] SINGH: 03/22/25-[address] [facility] [address]: Brooks Smith MD ENTERED: 03/25/25 SP TYPE: Pap Smr OTHR DR: ORDERED: Pap Smear Interpretation Satisfactory for evaluation. Negative for intraepithelial lesion or malignancy. HPV High Risk: Negative HPV Genotyping 16: Negative HPV Genotyping 18: Negative Clinical Information LMP:Unk Previous PAP test:7+ years Other surgery: Other history: Material Received ThinPrep-Cervical ----- ------- Signed (signature on file) LAY Hargrove ([facility]) 03/28/25 1049 ----- ------- END OF REPORT Brooks Smith MD LAB CYTOLOGY ORDERABLES Final Result [facility] [address] [place] [phone] * POCT YANIRA-14 Urine Drug Screen [...] / Unknown 03/18/2025 10:32 AM EDT Kierra Chance, RN - 03/18/2025 10:32 AM EDT UTOX cup Lot#[id number] Exp. 04/02/26 Internal Pass Control Brooks Smith MD POINT OF CARE TEST ENTER /EDIT ORDERABLES Final Result * BI Mammogram Screening Tomosynthesis Bilateral (12/06/2024) Anatomical Region Laterality Modality Breast Bilateral Mammography Brooks Smith MD IMG BI PROCEDURES Final Result * (ABNORMAL) Hm Colonoscopy (07/19/2023) Colonoscopy Abnormal(A ) Normal [facility] Comment:TA Brooks Smith MD HEALTH MAINTENANCE Edite d Result - Final Performing Organization Address City/[facility]/ZIP Co de Phone Number [facility] [address] [place], [place] [phone] * Lipid Panel with Reflex to Direct LDL (06/02/2023 11:15 AM EST) Triglycerides 80 <150 mg/dL [facility] Comment:Desirable Triglyceri de: less than 150 mg/dLBorderline High Triglyceride 150-199 mg/dLHigh Triglyceride: 200-499 mg/dLVery High Triglyceride: greater than or equal to 5OO mg/dL Cholesterol 149 <200 mg/dL [facility] Comment:Desirable Cholestero l: less than 200 mg/dLBorderline High Cholesterol: 200-239 mg/dLHigh Cholesterol: greater than 239 mg/dL LDL Cholesterol Calculated 76 <100 mg/dL [facility] Comment:Desirable LDL: less than 100 mg/dLNear Optimal/Above Optimal LDL: 110- 129 mg/dLBorderline High LDL: 130-159 mg/dLHigh LDL: 160-189 mg/dLVery High LDL: greater than or equal to 190 mg/dL HDL Cholesterol 57 >40 mg/dL [facility] Comment:Desirable HDL: great er than 40 mg/dL Note: This HDL assay may give artificially low results in patients with liver disease. Blood 06/02/2023 11:1 5 AM EST 06/02/2023 1:19 PM EST Brooks Smith MD LAB BLOOD ORDERABLES Fin al Result Performing Organization Address City/[facility]/ZIP Co de Phone Number [facility] [address] [place], [place] [phone] from Last 3 Months or Most Recently Relevant to Health Maintenance Insurance [facility] STANDARD MEDICARE Care Teams Mechanical Reliability Engineer Relationship Specialty Start Date End Date Brooks Smith MD [address] [place] [address] PCP - General Family Medicine 06/11/19 Benjie Pineda FNP [address] [place] [address] Nurse Practitioner Family Medicine 05/23/23 [employer] 3/4/25 marco 11/23/24
--- OUTSIDE RECORDS SUMMARY | 2025-04-08 10:55 | XMS_ITS | Encounter Summary ---
Author Organization [employer] Address [address] [facility] [address] [place] [address] Care Team Providers Care Tax Staff Accountant Name Role Phone Shannon Ordaz MD Primary Care Provider + Benjie Pineda Unavailable Unavailable Encounter Details Date Type Department Care Team (Late Contact Info) Description 03/01/2023 Abstract [facility] [address] [place] [address] [phone] Shannon Ordaz MD [address] [place], [place] [phone] Social History Tobacco Use Types Packs/Day Years [...] 10:30 AM EDT Clinical Support [facility] [address] [place], [place] [phone] Kierra Carbajal RN 07/12/2025 2:00 PM EST Office Visit [facility] OPT[facility]RY [address] [place], [place] [phone] Raina Hathaway, OD [address] [place], [place] [phone] documented as of this encounter Visit Diagnoses Not on filedocumented in this encounter Additional Health Concerns Assessment Noted Time PHQ-9 Depression Total Score: 8 02/02/20 23 11:15 AM EDT documented as of this encounter Care Teams Tax Staff Accountant Relationship Specialty Start Date End Date Shannon Ordaz MD [address] [place] [address] PCP - General Family Medicine 06/11/19 Benjie Pineda FNP [address] [place] [address] Nurse Practitioner Family Medicine 05/23/23 [employer] [facility] 04/25/24 05/03/24 [employer] 08/28/24 marco 11/23/24 documented as of this encounter
--- OUTSIDE RECORDS SUMMARY | 2025-04-08 10:55 | XMS_ITS | Encounter Summary ---
Author Organization [employer] Address [address] [facility] [address] [place] [address] Care Team Providers Care Labor Relations Worker Name Role Phone Shannon Ordaz MD Primary Care Provider + Benjie Pineda Unavailable Unavailable Reason for Visit * Reason Comments Med Refill Encounter Details Date Type Department Care Team ([facility] st Contact Info) Description 01/07/2025 Refill [facility] [address] [place], [place] [phone] Shannon Ordaz MD [address] [place], [place] [phone] Mixed hyperlipidemia; Anxiety and depression Social History [...] 10:30 AM EDT Clinical Support [facility] [address] [place] [address] Kierra Carbajal RN 07/12/2025 2:00 PM EST Office Visit [facility] OPTOMETRY [address] [place] [address] Raina Hathaway, OD [address] [place] [address] documented as of this encounter Goals Goal [...] documented as of this encounter Care Teams Labor Relations Worker Relationship Specialty Start Date End Date Shannon Ordaz MD [address] [place] [address] PCP - General Family Medicine 06/11/19 Benjie Pineda FNP [address] [place] [address] Nurse Practitioner Family Medicine 05/23/23 [facility] 08/28/24 khaiara 11/23/24 documented as of this encounter
--- OUTSIDE RECORDS SUMMARY | 2025-04-08 10:55 | XMS_ITS | Encounter Summary ---
Author Organization [employer] Address [address] [facility] 7t [place] [address] Care Team Providers Care [facility] Name Role Phone Shannon Ordaz MD Primary Care Provider + Benjie Pineda Unavailable Unavailable Reason for Visit * Reason Comments Med Refill Encounter Details Date Type Department Care Team ([facility] st Contact Info) Description 04/04/2025 Refill [facility] [address] [place], [place] [phone] Shannon Ordaz MD [address] [place] [address] Mixed hyperlipidemia Social History Tobacco Use Types [...] Description 04/17/2025 10:30 AM EDT Clinical Support [facility] [address] [place] [address] Kierra Carbajal RN 07/12/2025 2:00 PM EST Office Visit [facility] OPTOMETRY [address] [place] [address] Raina Hathaway, OD [address] [place] [address] documented as of this encounter Goals Goal [...] documented as of this encounter Care Teams [facility] Relationship Specialty Start Date End Date Shannon Ordaz MD [address] [place] [address] PCP - General Family Medicine 06/11/19 Benjie Pineda FNP [address] [place] [address] Nurse Practitioner Family Medicine 05/23/23 [facility] 08/28/24 khaiara 11/23/24 documented as of this encounter
--- OUTSIDE RECORDS SUMMARY | 2025-04-08 10:55 | XMS_ITS | Encounter Summary ---
Author Organization [employer] Address [address] [facility] 7t [place] [address] Care Team Providers Care Technical Recruiter Name Role Phone Shannon Ordaz MD Primary Care Provider + Benjie Pineda Unavailable Unavailable Reason for Visit * Reason Onset Date Comments Hospital Follow-up 03/22/2024 Encounter Details Date Type Department Care Team ([facility] st Contact Info) Description 03/22/2024 Telephone [facility] [address] [place], [place] [phone] Shannon Ordaz MD [address] [place], [place] [phone] Hospital Follow-up Social History Tobacco Use Types [...] from pt requesting a HDF appt. Hospital: [facility] Date of admission: 03/17/24 Discharge date: 03/21/24 Diagnosed: diarrhea and rectal bleeding documented in this encounter Plan of Treatment Upcoming Encounters Date Type Department Care Team (Late st Contact Info) Description 04/17/2025 10:30 AM EDT Clinical Support [facility] [address] [place] [address] Kierra Carbajal RN 07/12/2025 2:00 PM EST Office Visit [facility] OPTOMET[facility] [address] [place] [address] Raina Hathaway, OD 230 [place] [address] documented as of this encounter Goals Goal [...] documented as of this encounter Care Teams Technical Recruiter Relationship Specialty Start Date End Date Shannon Ordaz MD [address] [place] [address] PCP - General Family Medicine 06/11/19 Benjie Pineda FNP [address] [place] [address] Nurse Practitioner Family Medicine 05/23/23 [facility] 04/25/24 05/03/24 [facility] 08/28/24 [email or web address] 11/23/24 documented as of this encounter
--- OUTSIDE RECORDS SUMMARY | 2025-04-08 10:55 | XMS_ITS | Encounter Summary ---
Author Organization [employer] Address [address] [facility] 7t [place] [address] Care Team Providers Care Dairy Husbandman Name Role Phone Shannon Ordaz MD Primary Care Provider + Benjie Pineda Unavailable Unavailable Reason for Visit * Reason Comments Med Refill Encounter Details Date Type Department Care Team ([facility] st Contact Info) Description 02/13/2025 Refill [facility] [address] [place], [place] [phone] Shannon Ordaz MD [address] [place] [address] Major depressive disorder, recurrent episode with mood-congruent [...] 10:30 AM EDT Clinical Support [facility] [address] [place] [address] Kierra Carbajal RN 07/12/2025 2:00 PM EST Office Visit [facility] [address] [place] [address] Raina Hathaway, OD [address] [place] [address] documented as of this encounter Goals Goal [...] documented as of this encounter Care Teams Dairy Husbandman Relationship Specialty Start Date End Date Shannon Ordaz MD [address] [place] [address] PCP - General Family Medicine 06/11/19 Benjie Pineda FNP [address] [place] [address] Nurse Practitioner Family Medicine 05/23/23 [facility] 08/28/24 [email or web address] 11/23/24 documented as of this encounter
--- OUTSIDE RECORDS SUMMARY | 2025-04-08 10:55 | XMS_ITS | Encounter Summary ---
Author Organization [employer] Address [address] [facility] 7t [place] [address] Care Team Providers Care Director Supply Name Role Phone Shannon Ordaz MD Primary Care Provider + Benjie Pineda Unavailable Unavailable Reason for Visit * Reason Comments Med Refill Encounter Details Date Type Department Care Team ([facility] st Contact Info) Description 02/20/2025 Refill [facility] [address] [place], [place] [phone] Shannon Ordaz MD 230 [place] [address] Major depressive disorder, recurrent episode with mood-congruent [...] Description 04/17/2025 10:30 AM EDT Clinical Support [facility] 230 [place] [address] Kierra Carbajal RN 07/12/2025 2:00 PM EST Office Visit [facility] OPTOMETRY [address] [place] [address] Raina Hathaway, OD 230 [place] [address] documented as of this encounter Goals Goal [...] as of this encounter Care Teams Director Supply Relationship Specialty Start Date End Date Shannon Ordaz MD 230 [place] [address] PCP - General Family Medicine 06/11/19 Benjie Pineda FNP [address] [place] [address] Nurse Practitioner Family Medicine 05/23/23 [facility] 08/28/24 [email or web address] 11/23/24 documented as of this encounter
--- OUTSIDE RECORDS SUMMARY | 2025-04-08 10:55 | XMS_ITS | Encounter Summary ---
Author Organization [employer] Address [address] [place] [address] 7t [place] [address] Care Team Providers Care Hotel Dining Room Cashier Name Role Phone Shannon Ordaz MD Primary Care Provider + Benjie Pineda Unavailable Unavailable Reason for Visit * Reason Onset Date Comments Appointment Request 08/26/2022 Encounter Details Date Type Department Care Team (Late st Contact Info) Description 08/26/[address] [phone] Shannon Ordaz MD [address] [place], [place] [phone] Appointment Request Social History Tobacco Use Types [...] labs/htn RCL ) Please contact pt at [phone] documented in this encounter Plan of Treatment Upcoming Encounters Date Type Department Care Team (Late st Contact Info) Description 04/17/2025 10:30 AM EDT Clinical Support [facility] MED[facility]INE [address] [place] [address] Kierra Carbajal, ESTELLE 07/12/2025 2:00 PM EST Office Visit [facility] OPTOMETRY [address] [place] [address] Raina Hathaway, OD [address] [place] [address] documented as of this encounter Visit Diagnoses Not on filedocumented in this encounter Additional Health Concerns Assessment Noted Time PHQ-9 Depression Total Score: 9 08/19/19 23 11:05 AM EST documented as of this encounter Care Teams Hotel Dining Room Cashier Relationship Specialty Start Date End Date Shannon Ordaz MD [address] [place] [address] PCP - General Family Medicine 06/11/19 Benjie Pineda FNP [address] [place] [address] Nurse Practitioner Family Medicine 05/23/23 [facility] 04/25/24 05/03/24 [facility] 08/28/24 [email or web address] 11/23/24 documented as of this encounter
--- OUTSIDE RECORDS SUMMARY | 2025-04-08 10:55 | XMS_ITS | Encounter Summary ---
Author Organization [employer] Address [address] [facility] 7t [place] [address] Care Team Providers Care Service Tester Name Role Phone Shannon Ordaz MD Primary Care Provider + Benjie Pienda Unavailable Unavailable Encounter Details Date Type Department Care Team (Late st Contact Info) Description 07/21/2023 Abstract [facility] [address] [place], [place] [phone] Shannon Ordaz MD [address] [place], [place] [phone] Social History Tobacco Use Types Packs/Day Years [...] Description 04/17/2025 10:30 AM EDT Clinical Support [facility] [address] [place] [address] Kierra Carbajal RN 07/12/2025 2:00 PM EST Office Visit [facility] [address] [place] [address] Rivas, Raina, OD [address] [place] [address] documented as of this encounter Procedures Procedure Name Priority Date/Time Associated Diagnosis Comments COLONOSCOPY Routine 07/19/2023 documented in this encounter Results * (ABNORMAL) Colonoscopy (07/19/2023) Colonoscopy Abnormal(A ) Normal [facility] Comment:TA us Shannon Ordaz MD HEALTH MAINTENANCE Edite d Result - Final [facility] [address] [place] [address] [phone] documented in this encounter Visit Diagnoses Not on filedocumented in this encounter Additional Health Concerns Assessment Noted Time PHQ-9 Depression Total Score: 3 05/31/20 10:47 AM EST documented as of this encounter Care Teams Service Tester Relationship Specialty Start Date End Date Shannon Ordaz MD [address] [place] [address] PCP - General Family Medicine 06/11/19 Benjie Pineda FNP [address] [place] [address] Nurse Practitioner Family Medicine 05/23/23 [facility] 04/25/24 05/03/24 [facility] 08/28/24 [email or web address] 11/23/24 documented as of this encounter
--- OUTSIDE RECORDS SUMMARY | 2025-04-08 10:55 | XMS_ITS | Encounter Summary ---
Author Organization [employer] Address [address] [facility] 7t [place] [address] Care Team Providers Care Acoustic Warfare Analyst Name Role Phone Shannon Ordaz MD Primary Care Provider + Benjie Pineda Unavailable Unavailable Encounter Details Date Type Department Care Team (Late Contact Info) Description 08/30/2022 Orders Only [facility] [address] [place], [place] [phone] Radha Hubbard MD [address] [place] [address] Neuropathy involving both lower extremities (Primary Dx) [...] Description 04/17/2025 10:30 AM EDT Clinical Support [facility] [address] [place] [address] Kierra Carbajal RN 07/12/2025 2:00 PM EST Office Visit [facility] OPTOMETRY [address] [place], [place] [phone] Raina Hathaway, OD [address] [place] [address] documented as of this encounter Visit Diagnoses Diagnosis Neuropathy involving both lower extremities- Primary documented in this encounter Additional Health Concerns Assessment Noted Time PHQ-9 Depression Total Score: 9 08/19/19 23 11:05 AM EST documented as of this encounter Care Teams Acoustic Warfare Analyst Relationship Specialty Start Date End Date Shannon Ordaz MD [address] [place] [address] PCP - General Family Medicine 06/11/19 Benjie Pineda FNP [address] [place] [address] Nurse Practitioner Family Medicine 05/23/23 [facility] 04/25/24 05/03/24 [facility] 08/28/24 [email or web address] 11/23/24 documented as of this encounter
--- OUTSIDE RECORDS SUMMARY | 2025-04-08 10:55 | XMS_ITS | Encounter Summary ---
Author Organization [employer] Address [address] [facility] 7t [place] [address] Care Team Providers Care Co Teacher Name Role Phone Shannon Ordaz MD Primary Care Provider + Benjie Pineda Unavailable Unavailable Encounter Details Date Type Department Care Team (Late st Contact Info) Description 09/07/2024 Telephone [facility] [address] [place], [place] [phone] Shannon Ordaz MD [address] [place], [place] [phone] Social History Tobacco Use Types Packs/Day Years [...] Description 04/17/2025 10:30 AM EDT Clinical Support [facility] [address] [place] [address] Kierra Carbajal RN 07/12/2025 2:00 PM EST Office Visit [facility] OPTOMET[facility] [address] [place] [address] Rivas, Raina, OD [address] [place] [address] documented as of this encounter Goals Goal [...] documented as of this encounter Care Teams Co Teacher Relationship Specialty Start Date End Date Shannon Ordaz MD [address] [place] [address] PCP - General Family Medicine 06/11/19 Benjie Pineda FNP [address] [place] [phone] Nurse Practitioner Family Medicine 05/23/23 [facility] 08/28/24 [email or web address] 11/23/24 documented as of this encounter
--- OUTSIDE RECORDS SUMMARY | 2025-04-08 10:55 | XMS_ITS | Encounter Summary ---
Author Organization [employer] Address [address] [place] [address] 7t [place] [address] Care Team Providers Care Environmental Air Specialist Name Role Phone Shannon Ordaz MD Primary Care Provider + Benjie Pineda Unavailable Unavailable Reason for Visit * Reason Comments Med Refill Encounter Details Date Type Department Care Team (Late st Contact Info) Description 07/26/2022 Refill [facility] [address] [place] [address] Benjie Pineda FNP Major depressive disorder, recurrent [...] 10:30 AM EDT Clinical Support [facility] [address] [place], [place] [phone] Kierra Carbajal, ESTELLE 07/12/2025 2:00 PM EST Office Visit [facility] OPTOMETRY [address] [place], [place] [phone] Raina Hathaway, OD [address] [place] [address] documented as of this encounter Visit Diagnoses Diagnosis Major depressive disorder, recurrent episode with mood-congruent psychotic features (CMS/HCC) ([facility]) documented in this encounter Additional Health Concerns Assessment Noted Time PHQ-9 Depression Total Score: 11 023 9:08 AM EST documented as of this encounter Care Teams Environmental Air Specialist Relationship Specialty Start Date End Date Shannon Ordaz MD [address] [place] [address] PCP - General Family Medicine 06/11/19 Benjie Pineda FNP [address] [place] [address] Nurse Practitioner Family Medicine 05/23/23 [facility] 04/25/24 05/03/24 [facility] 08/28/24 marco 11/23/24 documented as of this encounter
--- OUTSIDE RECORDS SUMMARY | 2025-04-08 10:55 | XMS_ITS | Encounter Summary ---
Author Organization [employer] Address [address] [place] [address] 7t [place] [address] Care Team Providers Care Gourmet Coffee Attendant Name Role Phone Shannon Ordaz MD Primary Care Provider + Benjie Pineda Unavailable Unavailable Reason for Visit * Reason Comments Med Refill Encounter Details Date Type Department Care Team (Late st Contact Info) Description 06/29/2022 Refill [facility] [address] [place], [place] [phone] Benjie Pineda FNP Social History Tobacco Use [...] Description 04/17/2025 10:30 AM EDT Clinical Support [facility] [address] [place], [place] [phone] Kierra Carbajal RN 07/12/2025 2:00 PM EST Office Visit [facility] OPTOMETRY [address] [place], [place] [phone] Raina Hathaway, OD [address] [place], [place] [phone] documented as of this encounter Visit Diagnoses Not on filedocumented in this encounter Care Teams Gourmet Coffee Attendant Relationship Specialty Start Date End Date Shannon Ordaz MD 230 [place] [address] PCP - General Family Medicine 06/11/19 Benjie Pineda FNP [address] [place] [address] Nurse Practitioner Family Medicine 05/23/23 [facility] 04/25/24 05/03/24 [facility] 08/28/24 marco 11/23/24 documented as of this encounter
--- OUTSIDE RECORDS SUMMARY | 2025-04-08 10:55 | XMS_ITS | Encounter Summary ---
Author Organization [employer] Address [address] [place] [address] 7t [place] [address] Care Team Providers Care Learn To Swim Instructor Name Role Phone Shannon Ordaz MD Primary Care Provider + Benjie Pineda Unavailable Unavailable Reason for Visit * Reason Onset Date Comments Referral 08/26/2022 Encounter Details Date Type Department Care Team (Late st Contact Info) Description 08/26/[address] [facility] MEDICINE 230 [place], [place] [phone] Shannon Ordaz MD 230 [place], [place] [phone] Referral Social History Tobacco Use Types Packs/Day [...] 3:08 PM EST TC returned to pt [phone] to inform pt provider has placed PT referral today. Pt verbalized understanding. RN will send message to telecom specialist to ensure referral gets processed as pt's appt is on 09/03/22. * Telephone Encounter - Alta Daniel - 08/30/2022 12:03 PM EST Tc from pt checking status on physical therapy referral . * Telephone Encounter - Gumaro Storm - 08/26/2022 4:28 PM EST Tc from pt returning call regarding missing information she didn't have for the referral needed forphysical therapy. Location: [place] [address] Phone #: [phone] Please contact pt at [phone] documented in this encounter Plan of Treatment Upcoming Encounters Date Type Department Care Team (Late st Contact Info) Description 04/17/2025 10:30 AM EDT Clinical Support [facility] MEDICINE [address] [place] [address] Kierra Carbajal RN 07/12/2025 2:00 PM EST Office Visit [facility] OPTOMETRY [address] [place] [address] Rivas, Raina, OD [address] [place] [address] documented as of this encounter Visit Diagnoses Not on filedocumented in this encounter Additional Health Concerns Assessment Noted Time PHQ-9 Depression Total Score: 9 08/19/19 23 11:05 AM EST documented as of this encounter Care Teams Learn To Swim Instructor Relationship Specialty Start Date End Date Shannon Ordaz MD [address] [place] [address] PCP - General Family Medicine 06/11/19 Benjie Pineda FNP [address] [place] [address] Nurse Practitioner Family Medicine 05/23/23 [facility] 04/25/24 05/03/24 [facility] 08/28/24 marco 11/23/24 documented as of this encounter
--- OUTSIDE RECORDS SUMMARY | 2025-04-08 10:55 | XMS_ITS | Encounter Summary ---
Author Organization [employer] Address [address] [facility] 7t [place] [address] Care Team Providers Care Animal Chiropractor Name Role Phone Shannon Ordaz MD Primary Care Provider + Benjie Pineda Unavailable Unavailable Reason for Visit * Reason Onset Date Comments Medication Question 11/16/2022 Encounter Details Date Type Department Care Team ([facility] st Contact Info) Description 11/16/2022 Telephone [facility] [address] [place], [place] [phone] Shannon Ordaz MD [address] [place], [place] [phone] Medication Question Social History Tobacco Use Types [...] were discussed however meditech reviewed and pt.'s carton forming machine tender prescribes them. * Telephone Encounter - Alta [...] Description 04/17/2025 10:30 AM EDT Clinical Support [facility] [address] [place] [address] Kierra Carbajal RN 07/12/2025 2:00 PM EST Office Visit [facility] OPTOMETRY [address] [place] [address] Rivas, Raina, OD [address] [place] [address] documented as of this encounter Visit Diagnoses Not on filedocumented in this encounter Additional Health Concerns Assessment Noted Time PHQ-9 Depression Total Score: 12 023 11:08 AM EDT documented as of this encounter Care Teams Animal Chiropractor Relationship Specialty Start Date End Date Shannon Ordaz MD [address] [place] [address] PCP - General Family Medicine 06/11/19 Benjie Pineda FNP [address] [place] [address] Nurse Practitioner Family Medicine 05/23/23 [facility] 04/25/24 05/03/24 [facility] 08/28/24 marco 11/23/24 documented as of this encounter
--- OUTSIDE RECORDS SUMMARY | 2025-04-08 10:55 | XMS_ITS | Encounter Summary ---
Author Organization [employer] Address [address] [facility] 7t [place] [address] Care Team Providers Care Tool And Gauge Inspector Name Role Phone Shannon Ordaz MD Primary Care Provider + Benjie Pineda Unavailable Unavailable Encounter Details Date Type Department Care Team (Late st Contact Info) Description 11/23/2023 Orders Only [facility] MED[facility]INE [address] [place] [address] Provider, MD Yarelis Social History Tobacco Use [...] housing situation today? I have adelfo clifton 04/12/[address] you li [...] Clinical Support [facility] MED[facility]INE [address] [place] [address] Kierra Carbajal RN 07/12/2025 2:00 PM EST Office Visit [facility] OPTOMETRY [address] [place] [address] Raina Hathaway, OD [address] [place] [address] documented as of this encounter Procedures Procedure [...] documented as of this encounter Care Teams Tool And Gauge Inspector Relationship Specialty Start Date End Date Shannon Ordaz MD [address] [place] [address] PCP - General Family Medicine 06/11/19 Benjie Pineda FNP [address] [place] [address] Nurse Practitioner Family Medicine 05/23/23 [facility] 04/25/24 05/03/24 [facility] 08/28/24 marco 11/23/24 documented as of this encounter
--- OUTSIDE RECORDS SUMMARY | 2025-04-08 10:56 | XMS_ITS | Clinical Summary ---
Author Organization [facility] Address [address] [place] [address] Phone Care Team Providers Care Statement Clerks Manager Name Role Phone Shannon Ordaz MD Primary Care Provider [phone] Allergies Active Allergy Reactions Criticality Noted Date [...] Date Diagnosed Date Resolved Date COPD exacerbation ([facility] V24, [facility] V28) 11/22/2024 ARF (acute renal failure) ([facility] V24) 08/22/2024 08/23/2024 Encounters Date Type Department Care Team Description 02/18/2025 11:34 AM EDT - 02/18/2025 12:38 PM EDT Emergency [facility] Emergency [address] [place] [id number] Damon Dugan MD Abscess (Primary Dx) Discharge Disposition: Home or Self Care from Last 3 Months Surgical History Surgery Date Site/Laterality Comments STEREOTACTIC CORE BIOPSY Left Medical History Medical History Date Comments Asthma COPD (chronic obstructive pulmonary disease) (CM S/HCC V24, [facility] V28) Depression Hypercholesteremia Hypertension Peripheral neuropathy GERD (gastroesophageal reflux disease) Glaucoma CVA (cerebral vascular accident) ([facility] V24, C [place]/[facility] V28) Family History Medical History Relation Name [...] RSV Immunization Adult Patients (1 - Risk 50-74 years 1-dose series) 2008 Cholesterol Screening (Lipid Panel) 01/17/2024 Hepatitis C [...] LEVEL 1 Routine 02/18/2025 12:20 PM EDT DE INCISION & DRAINAGE ABSCESS SIMPLE/SINGLE Routine 02/18/2025 12:20 PM EDT BASIC METABOLIC PANEL STAT 12/25/2024 8:27 AM EDT MG MAMMO DIGITAL SCREENING W MAXIMILIAN BILAT Routine 12/06/2024 3:00 PM EDT Encounter for screening mammogram for malignant neoplasm of breast from Last 3 Months or Most Recently Relevant to Health Maintenance Results * DE INCISION & DRAINAGE ABSCESS SIMPLE/SINGLE, HC I&D/EXCISION/BIOPSY [...] discussed: Bleeding, incomplete drainage, pain and infection [place] protocol: Procedure explained and questions answered to [...] LAB CHEMISTRY METHOD 12/25/2024 9:10 AM EDT [facility] Potassium 3.9 3.5 - 5.5 mmol/L LAB CHEMISTRY METHOD 12/25/2024 9:10 AM EDT [facility] Chloride 109 96 - 110 mmol/L LAB CHEMISTRY METHOD 12/25/2024 9:10 AM [facility] CO2 26 21 - 32 mmol/L LAB CHEMISTRY METHOD 12/25/2024 9:10 AM [facility] Anion Gap 7 3 - 11 LAB CHEMISTRY METHOD 12/25/2024 9:10 AM [facility] Glucose 102(H) 70 - 100 mg/dL LAB CHEMISTRY METHOD 12/25/2024 9:10 AM [facility] BUN 12 5 - 25 mg/dL LAB CHEMISTRY METHOD 12/25/2024 9:10 AM [facility] Creatinine 1.30(H) 0.50 - 1.10 mg/dL LAB CHEMISTRY METHOD 12/25/2024 9:10 AM [facility] eGFR 45(L) >=60 mL/min/1. 73m2 LAB CHEMISTRY METHOD 12/25/2024 9:10 AM [facility] Comment:Calculation based on the Chronic Kidney Disease Epidemiology Collaboration (CKD-EPI) equation refit without adjustment for race. BUN/Creatinine Ratio 9.2 LAB CHEMISTRY METHOD 12/25/2024 9:10 AM [facility] Calcium 8.5 8.5 - 10.5 mg/dL LAB CHEMISTRY METHOD 12/25/2024 9:10 AM [facility] Blood Venous blood specimen / Unknown Venipuncture / Unknown 12/25/2024 8:27 AM EDT 12/25/2024 8:42 AM EDT us Keon Nunes DO LAB BLOOD ORDERABLES Final Result [facility] [address] [place] [address], * MG Mammo Digital Screening w Maximilian [...] year. Mamm[facility] [address], [address] -------- FINAL REPORT -------- Dictated By: Otf Hoyos Dictated Date: 12/06/2024 16:51 ET Assigned Physician: Otf Hoyos Reviewed and Electronically Signed By: Otf Hoyos Signed Date: 12/06/2024 16:58 ET Workstation ID: [id number] Transcribed By: Self Edit Transcribed Date: 12/06/2024 16:51 ET Narrative 12/06/2024 4:58 PM EDT EXAM: SCREENING MAMMOGRAPHY, BILATERAL HISTORY: SCREENING. Family history of breast cancer, mother, maternal grandmother COMPARISON: None available TECHNIQUE: Synthesized CC and MLO projections of each breast. Tomosynthesis of each breast in the CC and MLO projections. ADDITIONAL IMAGING: None Computer-aided detection was employed with the Hyperpot AI 3-D. TISSUE DENSITY: There are scattered [...] None Computer-aided detection was employed with the Hyperpot AI 3-D. TISSUE DENSITY: There are scattered [...] year. Mammography location: [facility] at [address], [address] -------- FINAL REPORT -------- Dictated By: Otf Hoyos Dictated Date: 12/06/2024 16:51 ET Assigned Physician: Otf Hoyos Reviewed and Electronically Signed By: tOf Hoyos Signed Date: 12/06/2024 16:58 ET Workstation ID: [id number] Transcribed By: Self Edit Transcribed Date: 12/06/2024 16:51 ET Shannon Ordaz MD IMG BI PROCEDURES Final Resu lt from Last 3 Months or Most Recently Relevant to Health Maintenance Insurance MEDICAID - [place] MEDICARE Advance Directives Documents on File Type Date Recorded Patient Cutter First Expl [facility] Care Decision (hx) 04/26/2024 Anahi Stuart SANDERSON [...] currently active code status orders. Care Teams Statement Clerks Manager Relationship Specialty Start Date End Date Shannon Ordaz MD [address] [place] [phone] PCP - General Internal Medicine 08/22/24
--- OUTSIDE RECORDS SUMMARY | 2025-04-08 10:56 | XMS_ITS | Encounter Summary ---
Author Organization [employer] Address [address] [facility] 7t [place] [address] Care Team Providers Care Stabilizing Machine Operator Name Role Phone Shannon Ordaz MD Primary Care Provider + Benjie Pineda Unavailable Unavailable Reason for Visit * Reason Comments Med Refill Encounter Details Date Type Department Care Team ([facility] st Contact Info) Description 06/13/2024 Refill [facility] MEDICINE [address] [place], [place] [phone] Shannon Ordaz MD [address] [place], [place] [phone] Primary hypertension Social History Tobacco Use Types [...] [facility] [address] [place] [address] Kierra Carbajal RN 07/12/2025 2:00 PM EST Office Visit [facility] OPTOMETRY [address] [place] [address] Rivas, Raina, OD [address] [place] [address] documented as of this encounter Goals Goal [...] documented as of this encounter Care Teams Stabilizing Machine Operator Relationship Specialty Start Date End Date Shannon Ordaz MD [address] [place] [address] PCP - General Family Medicine 06/11/19 Benjie Pineda FNP [address] [place] [address] Nurse Practitioner Family Medicine 05/23/23 [facility] 08/28/24 marco 11/23/24 documented as of this encounter
--- OUTSIDE RECORDS SUMMARY | 2025-04-08 10:56 | XMS_ITS | Encounter Summary ---
Author Organization [employer] Address [address] [facility] [address] [place] [address] Care Team Providers Care Particle Board Supervisor Name Role Phone Shannon Ordaz MD Primary Care Provider + Benjie Pineda Unavailable Unavailable Reason for Visit * Reason Comments Med Refill Encounter Details Date Type Department Care Team ([facility] st Contact Info) Description 12/10/2024 Refill [facility] MEDICINE [address] [place], [place] [phone] Shannon Ordaz MD [address] [place], [place] [phone] Major depressive disorder, recurrent episode with mood-congruent [...] 04/17/2025 10:30 AM EDT Clinical Support [facility] MEDICINE [address] [place] [address] Kierra Carbajal, ESTELLE 07/12/2025 2:00 PM EST Office Visit [facility] OPTOMETRY [address] [place] [address] Raina Hathaway, OD [address] [place] [address] documented as of this encounter Goals Goal [...] documented as of this encounter Care Teams Particle Board Supervisor Relationship Specialty Start Date End Date Shannon Ordaz MD [address] [place] [address] PCP - General Family Medicine 06/11/19 Benjie Pineda FNP [address] [place] [address] Nurse Practitioner Family Medicine 05/23/23 [facility] 08/28/24 khaiara 11/23/24 documented as of this encounter
--- OUTSIDE RECORDS SUMMARY | 2025-04-08 10:56 | XMS_ITS | Encounter Summary ---
Author Organization [employer] Address [address] [facility] [address]t [place] [address] Care Team Providers Care Tab Machine Operator Name Role Phone Shannon Ordaz MD Primary Care Provider + Benjie Pineda Unavailable Unavailable Encounter Details Date Type Department Care Team (Late st Contact Info) Description 11/22/2024 Orders Only [facility] [address] [place] [address] ProviderYarelis MD Social History Tobacco Use Types [...] Description 04/17/2025 10:30 AM EDT Clinical Support [facility] MEDICINE [address] [place], [place] [phone] Kierra Carbajal RN 07/12/2025 2:00 PM EST Office Visit [facility] OPTOMETRY [address] [place], [place] [phone] Raina Hathaway, OD [address] [place] [address] documented as of this encounter Goals Goal [...] documented as of this encounter Care Teams Tab Machine Operator Relationship Specialty Start Date End Date Shannon Ordaz MD [address] [place] [address] PCP - General Family Medicine 06/11/19 Benjie Pineda FNP [address] [place] [address] Nurse Practitioner Family Medicine 05/23/23 [facility] 08/28/24 elara 11/23/24 documented as of this encounter
--- OUTSIDE RECORDS SUMMARY | 2025-04-08 10:56 | XMS_ITS | Encounter Summary ---
Author Organization [employer] Address [address] [facility] [address]t [place] [address] Care Team Providers Care Fast Food Team Member Name Role Phone Shannon Ordaz MD Primary Care Provider + Benjie Pineda Unavailable Unavailable Reason for Visit * Reason Comments Med Refill Encounter Details Date Type Department Care Team ([facility] st Contact Info) Description 12/07/[address] [facility] MEDICINE [address] [place], [place] [phone] Shannon Ordaz MD [address] [place], [place] [phone] Anxiety and depression Social History Tobacco Use [...] AM EDT Clinical Support [facility] MEDICINE [address] [place] [address] Kierra Carbajal RN 07/12/2025 2:00 PM EST Office Visit [facility] OPTOMETRY [address] [place] [address] Rivas, Raina, OD [address] [place] [address] documented as of this encounter Goals Goal [...] documented as of this encounter Care Teams Fast Food Team Member Relationship Specialty Start Date End Date Shannon Ordaz MD [address] [place] [address] PCP - General Family Medicine 06/11/19 Benjie Pineda FNP [address] [place] [address] Nurse Practitioner Family Medicine 05/23/23 [facility] 08/28/24 marco 11/23/24 documented as of this encounter
--- OUTSIDE RECORDS SUMMARY | 2025-04-08 10:56 | XMS_ITS | Encounter Summary ---
Author Organization [employer] Address [address] [facility] [address]t [place] [address] Care Team Providers Care Fish Net Stringer Name Role Phone Shannon Ordaz MD Primary Care Provider + Benjie Pineda Unavailable Unavailable Reason for Visit * Reason Onset Date Comments Pre-op Exam 06/21/2024 Encounter Details Date Type Department Care Team ([facility] st Contact Info) Description 06/21/2024 Telephone [facility] MEDICINE [address] [place], [place] [phone] Shannon Ordaz MD [address] [place], [place] [phone] Pre-op Exam Social History Tobacco Use Types [...] Melita Stevenson - 06/21/2024 9:57 AM EST Dean Of Graduate Studies spoke with Melanie at [facility] and agreed to inform pt she is scheduled for pre op on 07/25/24 at 9AM with . Appointment reminder letter mailed Date of Surgery: 08/07/2024 and 08/23/2024 (right eye) Surgical procedure being done: Cataract Surgery Type of anesthesia: MAC Lab needed: No EKG: No Surgeon's name: Tino Falk Facility name: [facility] Surgeon's office number: [phone] Surgeon's office fax number: [phone] Contact name (person you spoke with): Melanie Last office note from surgeon requested: No * Telephone Encounter - Watson Abdi - 06/21/2024 9:08 AM EST Date of Surgery: 08/07/2024 and 08/23/2024 (right eye) Surgical procedure being done: Cataract Surgery Type of anesthesia: MAC Lab needed: No EKG: No Surgeon's name: Tino Falk Facility name: [facility] Surgeon's office number: [phone] Surgeon's office fax number: [phone] Contact name (person you spoke with): Melanie Last office note from surgeon requested: No Send Message to Melita Stevenson and Marc Apodaca documented in this encounter Plan of Treatment Upcoming Encounters Date Type Department Care Team (Late st Contact Info) Description 04/17/2025 10:30 AM EDT Clinical Support [facility]ICINE [address] [place] [address] Kierra Carbajal, ESTELLE 07/12/2025 2:00 PM EST Office Visit [facility] OPTOMETRY [address] [place] [address] Raina Hathaway, OD [address] [place] [address] documented as of this encounter Goals Goal [...] documented as of this encounter Care Teams Fish Net Stringer Relationship Specialty Start Date End Date Shannon Ordaz MD [address] [place] [address] PCP - General Family Medicine 06/11/19 Benjie Pineda FNP [address] [place] [address] Nurse Practitioner Family Medicine 05/23/23 [facility] 08/28/24 elara 11/23/24 documented as of this encounter
--- OUTSIDE RECORDS SUMMARY | 2025-04-08 10:56 | XMS_ITS | Encounter Summary ---
Author Organization [employer] Address [address] [facility] 7t [place] [address] Care Team Providers Care Ostomy Care Nurse Name Role Phone Shannon Ordaz MD Primary Care Provider + Benjie Pineda Unavailable Unavailable Reason for Visit * Reason Comments Med Refill Encounter Details Date Type Department Care Team ([facility] st Contact Info) Description 10/16/2024 Refill [facility] MEDICINE [address] [place], [place] [phone] Shannon Ordaz MD [address] [place], [place] [phone] Major depressive disorder, recurrent episode with mood-congruent [...] 04/17/2025 10:30 AM EDT Clinical Support [facility] MEDICINE [address] [place] [address] Kierra Carbajal, ESTELLE 07/12/2025 2:00 PM EST Office Visit [facility] OPTOMETRY [address] [place] [address] Raina Hathaway, OD [address] [place] [address] documented as of this encounter Goals Goal [...] documented as of this encounter Care Teams Ostomy Care Nurse Relationship Specialty Start Date End Date Shannon Ordaz MD [address] [place] [address] PCP - General Family Medicine 06/11/19 Benjie Pineda FNP [address] [place] [address] Nurse Practitioner Family Medicine 05/23/23 [facility] 08/28/24 khaiara 11/23/24 documented as of this encounter
== END 2025-03-22 00:01 | disposition home or self-care (01) ==
LOC: HO.LNP
PROVIDERS: Visit Provider Internal Medicine
DX: Z01.419 Encounter for gynecological examination (general) (routine) without abnormal findings (principal); Z11.51 Encounter for screening for human papillomavirus (HPV)
CPT/HCPCS: 87626; 88175

== ENCOUNTER 2025-03-28 14:58 | Outpatient (REF) | payer MEDICARE, MEDICAID, SELFPAY ==
[2025-03-28 16:11] LABS: MANUAL DIFF FLAG NO
--- OUTSIDE RECORDS SUMMARY | 2025-03-28 16:26 | XMS_ITS | Encounter Summary ---
Author Organization [employer] Address [address] [place] [address] 7t [place] [address] Care Team Providers Care Clinic Director Name Role Phone Shannon Ordaz MD Primary Care Provider + Benjie Pineda Unavailable Unavailable Reason for Visit * Reason Onset Date Comments Referral 08/26/2022 Encounter Details Date Type Department Care Team (Late st Contact Info) Description 08/26/2022 Telephone [facility] MEDICINE [address] [place], [place] [phone] Shannon Ordaz MD [address] [place], [place] [phone] Referral Social History Tobacco Use Types Packs/Day [...] 3:08 PM EST TC returned to pt [phone] to inform pt provider has placed PT referral today. Pt verbalized understanding. RN will send message to internet specialist to ensure referral gets processed as pt's appt is on 09/03/22. * Telephone Encounter - Alta Daniel - 08/30/2022 12:03 PM EST Tc from pt checking status on physical therapy referral . * Telephone Encounter - Gumaro Storm - 08/26/2022 4:28 PM EST Tc from pt returning call regarding missing information she didn't have for the referral needed forphysical therapy. Location: [place] [address] Phone #: [phone] Please contact pt at [phone] documented in this encounter Plan of Treatment Upcoming Encounters Date Type Department Care Team (Late st Contact Info) Description 04/17/2025 10:30 AM EDT Clinical Support [facility] MEDICINE 230 [place] [address] Kierra Carbajal RN 07/12/2025 2:00 PM EST Office Visit [facility] OPTOMETRY [address] [place] [address] Rivas, Raina, OD 230 [place] [address] documented as of this encounter Visit Diagnoses Not on filedocumented in this encounter Additional Health Concerns Assessment Noted Time PHQ-9 Depression Total Score: 9 08/19/19 23 11:05 AM EST documented as of this encounter Care Teams Clinic Director Relationship Specialty Start Date End Date Shannon Ordaz MD [address] [place] [address] PCP - General Family Medicine 06/11/19 Benjie Pineda FNP [address] [place] [address] Nurse Practitioner Family Medicine 05/23/23 [facility] 04/25/24 05/03/24 [facility] 08/28/24 marco 11/23/24 documented as of this encounter
--- OUTSIDE RECORDS SUMMARY | 2025-03-28 16:26 | XMS_ITS | Encounter Summary ---
Author Organization [employer] Address 75 [facility] 7t [place] [address] Care Team Providers Care Headend Technician Name Role Phone Shannon Ordaz MD Primary Care Provider + Benjie Pineda Unavailable Unavailable Encounter Details Date Type Department Care Team (Late Contact Info) Description 08/30/2022 Orders Only [facility] MEDICINE [address] [place], [place] [phone] Radha Hubbard MD 230 [place] [address] Neuropathy involving both lower extremities (Primary Dx) [...] Encounters Date Type Department Care Team (Late Contact Info) Description 04/17/2025 10:30 AM EDT Clinical Support [facility] MEDICINE [address] [place] [address] Kierra Carbajal RN 07/12/2025 2:00 PM EST Office Visit [facility] OPTOMETRY [address] [place], [place] [phone] Raina Hathaway, OD 230 [place] [address] documented as of this encounter Visit Diagnoses Diagnosis Neuropathy involving both lower extremities- Primary documented in this encounter Additional Health Concerns Assessment Noted Time PHQ-9 Depression Total Score: 9 08/19/19 23 11:05 AM EST documented as of this encounter Care Teams Headend Technician Relationship Specialty Start Date End Date Shannon rOdaz MD [address] [place] [address] PCP - General Family Medicine 06/11/19 Benjie Pineda FNP [address] [place] [address] Nurse Practitioner Family Medicine 05/23/23 [facility] 04/25/24 05/03/24 [facility] 08/28/24 marco 11/23/24 documented as of this encounter
--- OUTSIDE RECORDS SUMMARY | 2025-03-28 16:26 | XMS_ITS | Encounter Summary ---
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 I have adelfo clifton 12/24/[address] you li ve. Do you have problems with any of the following? None of the above 12/24/2024 Food Insecurity Answer Date Recorded Within the past 12 months, y ou worried that your food would run out before you got money to buy more: Never True 12/24/2024 Within the past 12 months,th e food you bought just didn't last and you didn't have enough money to get more: Never True Transportation Answer Date Recorded In the past 12 months, has l ack of transportation kept you from medical appts, meetings, work or from getting things needed for daily living? No 12/24/2024 Utilities Answer Date Recorded In the past 12 months, has t he electric, gas, oil or water company threatened to shut off services in your home? No 12/24/2024 Depression Answer Date Recorded Patient Health Questionnaire-2 Score 3 01/17/2025 Internet Access Answer Date Recorded Internet Access Q1 Yes 12/24/2024 Internet Access Q2 Not on file 12/24/2024 Comments No Sex and Gender Information Value [...] Description 04/17/2025 10:30 AM EDT Clinical Support [facility] MEDICINE [address] [place] [address] Kierra Carbajal RN 07/12/2025 2:00 PM EST Office Visit [facility] OPTOMETRY [address] [place] [address] Rivas, Raina, OD 230 [place] [address] documented as of this encounter Goals Goal Patient Goal Type Associated Problems Recent Progress Patient-Stated? 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
--- OUTSIDE RECORDS SUMMARY | 2025-03-28 16:26 | XMS_ITS | Encounter Summary ---
Author Organization [employer] Address [address] [facility] 7t [place] [address] Care Team Providers Care Special Education Kindergarten Teacher Name Role Phone Shannon Ordaz MD Primary Care Provider + Benjie Pineda Unavailable Unavailable Reason for Visit * Reason Comments Med Refill Encounter Details Date Type Department Care Team ([facility] st Contact Info) Description 02/20/2025 Refill [facility] MED & PEDS [address] [place], [place] [phone] Shannon Ordaz MD [address] [place] [address] Major depressive disorder, recurrent episode with mood-congruent [...] housing situation today? I have adelfo lazo 12/24/[address] you li [...] 04/17/2025 10:30 AM EDT Clinical Support [facility] MEDICINE [address] [place] [address] Kierra Carbajal RN 07/12/2025 2:00 PM EST Office Visit [facility] OPTOMETRY [address] [place] [address] Raina Hathaway, OD [address] [place] [address] documented as of this encounter Goals Goal [...] documented as of this encounter Care Teams Special Education Kindergarten Teacher Relationship Specialty Start Date End Date Shannon Ordaz MD [address] [place] [address] PCP - General Family Medicine 06/11/19 Benjie Pineda FNP [address] [place] [address] Nurse Practitioner Family Medicine 05/23/23 [facility] 08/28/24 khaiara 11/23/24 documented as of this encounter
--- OUTSIDE RECORDS SUMMARY | 2025-03-28 16:26 | XMS_ITS | Encounter Summary ---
Author Organization [employer] Address 75 [facility] 7t [place] [address] Care Team Providers Care Marketing Development Representative Name Role Phone Shannon Ordaz MD Primary Care Provider + Benjie Pineda Unavailable Unavailable Reason for Visit * Reason Comments Med Refill Encounter Details Date Type Department Care Team ([facility] st Contact Info) Description 08/30/2023 Refill [facility] MED & PEDS [address] [place], [place] [phone] Shannon Ordaz MD [address] [place] [address] Social History Tobacco Use Types Packs/Day Years [...] Description 04/17/2025 10:30 AM EDT Clinical Support [facility] MEDICINE 230 [place] [address] Kierra Carbajal RN 07/12/2025 2:00 PM EST Office Visit [facility] OPTOMETRY [address] [place] [address] Rivas, Raina, OD 230 [place] [address] documented as of this encounter Visit Diagnoses Not on filedocumented in this encounter Additional Health Concerns Assessment Noted Time PHQ-9 Depression Total Score: 2 08/02/19 24 9:41 AM EST documented as of this encounter Care Teams Marketing Development Representative Relationship Specialty Start Date End Date Shannon Ordaz MD [address] [place] [address] PCP - General Family Medicine 06/11/19 Benjie Pineda FNP [address] [place] [address] Nurse Practitioner Family Medicine 05/23/23 [facility] 04/25/24 05/03/24 [facility] 08/28/24 marco 11/23/24 documented as of this encounter
--- OUTSIDE RECORDS SUMMARY | 2025-03-28 16:26 | XMS_ITS | Encounter Summary ---
Author Organization [employer] Address [address] [facility] 7t [place] [address] Care Team Providers Care Milled Lumber Grader Name Role Phone Shannon Ordaz MD Primary Care Provider + Benjie Pineda Unavailable Unavailable Encounter Details Date Type Department Care Team (Late st Contact Info) Description 07/21/2023 Abstract [facility] MEDICINE 230 [place], [place] [phone] Shannon Ordaz MD [address] [place], [place] [phone] Social History Tobacco Use Types Packs/Day Years [...] Description 04/17/2025 10:30 AM EDT Clinical Support [facility] MEDICINE [address] [place] [address] Kierra Carbajal RN 07/12/2025 2:00 PM EST Office Visit [facility] OPTOMETRY [address] [place] [address] Rivas, Raina, OD [address] [place] [address] documented as of this encounter Procedures Procedure Name Priority Date/Time Associated Diagnosis Comments COLONOSCOPY Routine 07/19/2023 documented in this encounter Results * (ABNORMAL) Colonoscopy (07/19/2023) Colonoscopy Abnormal(A ) Normal [facility] Comment:TA us Shannon Ordaz MD HEALTH MAINTENANCE Edite d Result - Final [facility] [address] [place] [address] [phone] documented in this encounter Visit Diagnoses Not on filedocumented in this encounter Additional Health Concerns Assessment Noted Time PHQ-9 Depression Total Score: 3 05/31/20 10:47 AM EST documented as of this encounter Care Teams Milled Lumber Grader Relationship Specialty Start Date End Date Shannon Ordaz MD [address] [place] [address] PCP - General Family Medicine 06/11/19 Benjie Pineda FNP [address] [place] [address] Nurse Practitioner Family Medicine 05/23/23 [facility] 04/25/24 05/03/24 [facility] 08/28/24 marco 11/23/24 documented as of this encounter
--- OUTSIDE RECORDS SUMMARY | 2025-03-28 16:26 | XMS_ITS | Encounter Summary ---
Author Organization [employer] Address [address] [facility] [address]t [place] [address] Care Team Providers Care Preform Plate Maker Name Role Phone Shannon Ordaz MD Primary Care Provider + Benjie Pineda Unavailable Unavailable Reason for Visit * Reason Comments Med Refill Encounter Details Date Type Department Care Team ([facility] st Contact Info) Description 02/13/2025 Refill [facility] MED & PEDS [address] [place], [place] [phone] Shannno Ordaz MD [address] [place] [address] Major depressive disorder, recurrent episode with mood-congruent [...] Description 04/17/2025 10:30 AM EDT Clinical Support [facility] MEDICINE [address] [place] [address] Kierra Carbajal RN 07/12/2025 2:00 PM EST Office Visit [facility] OPTOMETRY [address] [place] [address] Raina Hathaway, OD [address] [place] [address] documented as of this encounter Goals Goal [...] documented as of this encounter Care Teams Preform Plate Maker Relationship Specialty Start Date End Date Shannon Ordaz MD [address] [place] [address] PCP - General Family Medicine 06/11/19 Benjie Pineda FNP [address] [place] [address] Nurse Practitioner Family Medicine 05/23/23 [facility] 08/28/24 khaiara 11/23/24 documented as of this encounter
--- OUTSIDE RECORDS SUMMARY | 2025-03-28 16:26 | XMS_ITS | Encounter Summary ---
Author Organization [employer] Address [address] [place] [address] 7t [place] [address] Care Team Providers Care Plastic Joint Maker Name Role Phone Shannon Ordaz MD Primary Care Provider + Benjie Pineda Unavailable Unavailable Reason for Visit * Reason Onset Date Comments Appointment Request 08/26/2022 Encounter Details Date Type Department Care Team (Late st Contact Info) Description 08/26/[address] [phone] Shannon Ordaz MD [address] [place], [place] [phone] Appointment Request Social History Tobacco Use Types [...] labs/htn RCL ) Please contact pt at [phone] documented in this encounter Plan of Treatment Upcoming Encounters Date Type Department Care Team (Late st Contact Info) Description 04/17/2025 10:30 AM EDT Clinical Support [facility] MEDICINE [address] [place] [address] Kierra Carbajal, ESTELLE 07/12/2025 2:00 PM EST Office Visit [facility] OPTOMETRY [address] [place] [address] Raina Hathaway, OD 230 [place] [address] documented as of this encounter Visit Diagnoses Not on filedocumented in this encounter Additional Health Concerns Assessment Noted Time PHQ-9 Depression Total Score: 9 08/19/19 23 11:05 AM EST documented as of this encounter Care Teams Plastic Joint Maker Relationship Specialty Start Date End Date Shannon Ordaz MD [address] [place] [address] PCP - General Family Medicine 06/11/19 Benjie Pineda FNP [address] [place] [address] Nurse Practitioner Family Medicine 05/23/23 [facility] 04/25/24 05/03/24 [facility] 08/28/24 marco 11/23/24 documented as of this encounter
--- OUTSIDE RECORDS SUMMARY | 2025-03-28 16:26 | XMS_ITS | Encounter Summary ---
Author Organization [employer] Address [address] [facility] 7t [place] [address] Care Team Providers Care Toll Line Mechanic Name Role Phone Shannon Ordaz MD Primary Care Provider + Benjie Pineda Unavailable Unavailable Reason for Visit * Reason Comments Med Refill Encounter Details Date Type Department Care Team ([facility] st Contact Info) Description 01/07/2025 Refill [facility] MEDICINE [address] [place], [place] [phone] Shannon Ordaz MD [address] [place], [place] [phone] Mixed hyperlipidemia; Anxiety and depression Social History Tobacco Use Types Packs/Day Years Used Date Smoking Tobacco: Former Cigarettes Passive Smoke Exposure: Past Smokeless Tobacco: Never Alcohol Use Standard Drinks/Week Comments Never 0 (1 standard drink = 0.6 oz pur e alcohol) Depression Answer Date Recorded Patient Health Questionnaire-9 Score 19 09/04/2024 Patient Health Questionnaire-9 Score 19 09/04/2024 Last PHQ-9: Questionnaire Data Not on file 0 09/04/2024 Housing Stability Answer Date Recorded What is [...] Answer Date Recorded Patient Health Questionnaire-2 Score 5 09/04/2024 Internet Access Answer Date Recorded Internet Access [...] Description 04/17/2025 10:30 AM EDT Clinical Support [facility] MEDICINE [address] [place] [address] Kierra Carbajal RN 07/12/2025 2:00 PM EST Office Visit [facility] OPTOMETRY [address] [place] [address] Raina Hathaway, OD 230 [place] [address] documented as of this encounter Goals Goal [...] Assessment Noted Time PHQ-9 Depression Total Score: 19 025 2:46 PM EDT documented as of this encounter Care Teams Toll Line Mechanic Relationship Specialty Start Date End Date Shannon Ordaz MD [address] [place] [address] PCP - General Family Medicine 06/11/19 Benjie Pineda FNP [address] [place] [address] Nurse Practitioner Family Medicine 05/23/23 [facility] 08/28/24 khaiara 11/23/24 documented as of this encounter
--- OUTSIDE RECORDS SUMMARY | 2025-03-28 16:27 | XMS_ITS | Encounter Summary ---
Author Organization [employer] Address [address] [place] [address] 7t [place] [address] Care Team Providers Care Warehouse Shift Supervisor Name Role Phone Shannon Ordaz MD Primary Care Provider + Benjie Pineda Unavailable Unavailable Reason for Visit * Reason Comments Med Refill Encounter Details Date Type Department Care Team (Late st Contact Info) Description 06/29/2022 Refill [facility] MEDICINE [address] [place], [place] [phone] Benjie Pineda FNP Social History Tobacco Use [...] Description 04/17/2025 10:30 AM EDT Clinical Support [facility] MEDICINE [address] [place], [place] [phone] Kierra Carbajal RN 07/12/2025 2:00 PM EST Office Visit [facility] OPTOMETRY [address] [place], [place] [phone] Raina Hathaway, OD [address] [place], [place] [phone] documented as of this encounter Visit Diagnoses Not on filedocumented in this encounter Care Teams Warehouse Shift Supervisor Relationship Specialty Start Date End Date Shannon Ordaz MD 230 [place] [address] PCP - General Family Medicine 06/11/19 Benjie Pineda FNP 230 [place] [address] Nurse Practitioner Family Medicine 05/23/23 [facility] 04/25/24 05/03/24 [facility] 08/28/24 marco 11/23/24 documented as of this encounter
--- OUTSIDE RECORDS SUMMARY | 2025-03-28 16:27 | XMS_ITS | Encounter Summary ---
Author Organization [employer] Address [address] [facility] 7t [place] [address] Care Team Providers Care Optical Element Coater Name Role Phone Shannon Ordaz MD Primary Care Provider + Benjie Pineda Unavailable Unavailable Reason for Visit * Reason Comments Med Refill Encounter Details Date Type Department Care Team ([facility] st Contact Info) Description 06/13/[address] [facility] MEDICINE [address] [place], [place] [phone] Shannon Ordaz MD [address] [place], [place] [phone] Primary hypertension Social History Tobacco Use Types [...] Description 04/17/2025 10:30 AM EDT Clinical Support [facility] MEDICINE [address] [place] [address] Kierra Carbajal RN 07/12/2025 2:00 PM EST Office Visit [facility] OPTOMETRY [address] [place] [address] Rivas, Raina, OD 230 [place] [address] documented as of this encounter Goals Goal [...] documented as of this encounter Care Teams Optical Element Coater Relationship Specialty Start Date End Date Shannon Ordaz MD [address] [place] [address] PCP - General Family Medicine 06/11/19 Benjie Pineda FNP [address] [place] [address] Nurse Practitioner Family Medicine 05/23/23 [facility] 08/28/24 marco 11/23/24 documented as of this encounter
--- OUTSIDE RECORDS SUMMARY | 2025-03-28 16:27 | XMS_ITS | Encounter Summary ---
Author Organization [employer] Address 75 [facility] 7t [place] [address] Care Team Providers Care Transmission Worker Name Role Phone Shannon Ordaz MD Primary Care Provider + Benjie Pineda Unavailable Unavailable Reason for Visit * Reason Onset Date Comments verbal orders 03/26/2025 Encounter Details Date Type Department Care Team ([facility] st Contact Info) Description 03/26/2025 Telephone [facility] 230 [place], [place] [phone] Shannon Ordaz MD 230 [place], [place] [phone] verbal orders Social History Tobacco Use Types Packs/Day Years Used Date Smoking Tobacco: Former Cigarettes Passive Smoke Exposure: Past Smokeless Tobacco: Never Alcohol Use Standard Drinks/Week Comments Never 0 (1 standard drink = 0.6 oz pur e alcohol) Depression Answer Date Recorded Patient Health Questionnaire-9 Score 8 03/22/2025 Patient Health Questionnaire-9 Score 8 03/22/2025 Last PHQ-9: Questionnaire Data Not on file 0 03/22/2025 Housing Stability Answer Date Recorded What is your housing situation today? I have adelfofabiano lazo 12/24/[address] you [...] Answer Date Recorded Patient Health Questionnaire-2 Score 1 03/22/2025 Internet Access Answer Date Recorded Internet Access [...] Telephone Encounter - Sujey Hicks RN - 03/26/2025 2:29 PM EDT TC placed to patient [phone] in regards to below message. Charles provided with verbal orders. Charles to f/u PRN. * Telephone Encounter - Jaja Wilder - 03/26/2025 2:15 PM EDT Tc from [facility] requesting verbal orders to continue home PT 1x this week 2x a week for 4 weeks 1x a week for final 4 weeks Contact Charles at [phone] documented in this encounter Plan of Treatment Upcoming Encounters Date Type Department Care Team (Late st Contact Info) Description 04/17/2025 10:30 AM EDT Clinical Support [facility] [address] [place] [address] Kierra Carbajal RN 07/12/2025 2:00 PM EST Office Visit [facility] [address] [place] [address] Raina Hathaway, OD 230 [place] [address] documented as of this encounter Goals Goal [...] Noted Time PHQ-9 Depression Total Score: 8 03/22/20 25 12:07 PM EDT documented as of this encounter Care Teams Transmission Worker Relationship Specialty Start Date End Date Shannon Ordaz MD 230 [place] [address] PCP - General Family Medicine 06/11/19 Benjie Pineda FNP 230 [place] [address] Nurse Practitioner Family Medicine 05/23/23 [facility] 08/28/24 khaiara 11/23/24 documented as of this encounter
--- OUTSIDE RECORDS SUMMARY | 2025-03-28 16:27 | XMS_ITS | Encounter Summary ---
Author Organization [employer] Address [address] [facility] 7t [place] [address] Care Team Providers Care Tube Filler Name Role Phone Shannon Ordaz MD Primary Care Provider + Benjie Pineda Unavailable Unavailable Reason for Visit * Reason Onset Date Comments Hospital Follow-up 03/22/2024 Encounter Details Date Type Department Care Team ([facility] st Contact Info) Description 03/22/2024 Telephone [facility] MEDICINE 230 [place], [place] [phone] Shannon Ordaz MD 230 [place], [place] [phone] Hospital Follow-up Social History Tobacco Use Types [...] is your housing situation today? I have adelof lazo 04/12/[address] you [...] from pt requesting a HDF appt. Hospital: [facility] Date of admission: 03/17/24 Discharge date: 03/21/24 Diagnosed: diarrhea and rectal bleeding documented in this encounter Plan of Treatment Upcoming Encounters Date Type Department Care Team (Late st Contact Info) Description 04/17/2025 10:30 AM EDT Clinical Support [facility] MEDICINE 230 [place] [address] Kierra Carbajal RN 07/12/2025 2:00 PM EST Office Visit [facility] OPTOMETRY [address] [place] [address] Raina Hathaway, OD 230 [place] [address] documented as of this encounter Goals Goal Patient Goal Type Associated Problems Recent Progress Patient-Stated? Author Blood Pressure < 140/90 Blood Pressure 166/80(2024 12:02 PM EDT) No Yanet Tse, PharmD Record your blood pressure once per day Blood Pressure No Yanet Tse, PharmD Take your medication every day Lifestyle No Yanet Tse PharmD documented as of this encounter Visit Diagnoses Not on filedocumented in this encounter Additional Health Concerns Assessment Noted Time PHQ-9 Depression Total Score: 2 11/15/19 24 11:12 AM EDT documented as of this encounter Care Teams Tube Filler Relationship Specialty Start Date End Date Shannon Ordaz MD [address] [place] [address] PCP - General Family Medicine 06/11/19 Benjie Pineda FNP [address] [place] [address] Nurse Practitioner Family Medicine 05/23/23 [facility] 04/25/24 05/03/24 [facility] 08/28/24 marco 11/23/24 documented as of this encounter
--- OUTSIDE RECORDS SUMMARY | 2025-03-28 16:27 | XMS_ITS | Encounter Summary ---
Author Organization [employer] Address 75 [facility] 7t [place] [address] Care Team Providers Care Supervisor Assembling Name Role Phone Shannon Ordaz MD Primary Care Provider + Benjie Pindea Unavailable Unavailable Reason for Visit * Reason Comments Med Refill Encounter Details Date Type Department Care Team ([facility] st Contact Info) Description 10/16/2024 Refill [facility] MEDICINE [address] [place], [place] [phone] Shannon Ordaz MD 230 [place], [place] [phone] Major depressive disorder, recurrent episode with mood-congruent [...] Recorded Patient Health Questionnaire-2 Score 5 09/04/2024 Comments No Sex and Gender Information Value [...] Description 04/17/2025 10:30 AM EDT Clinical Support [facility] MEDICINE [address] [place] [address] Kierra Carbajal, ESTELLE 07/12/2025 2:00 PM EST Office Visit [facility] OPTOMETRY [address] [place] [address] Raina Hathaway, OD 230 [place] [address] documented as of this encounter Goals Goal [...] as of this encounter Care Teams Supervisor Assembling Relationship Specialty Start Date End Date Shannon Ordaz MD 230 [place] [address] PCP - General Family Medicine 06/11/19 Benjie Pineda FNP 230 [place] [address] Nurse Practitioner Family Medicine 05/23/23 [facility] 08/28/24 khaiara 11/23/24 documented as of this encounter
--- OUTSIDE RECORDS SUMMARY | 2025-03-28 16:27 | XMS_ITS | Encounter Summary ---
Author Organization [employer] Address [address] [facility] 7t [place] [address] Care Team Providers Care Banking Specialist Name Role Phone Shannon Ordaz MD Primary Care Provider + Benjie Pineda Unavailable Unavailable Reason for Visit * Reason Onset Date Comments Medication Question 11/16/2022 Encounter Details Date Type Department Care Team ([facility] st Contact Info) Description 11/16/2022 Telephone [facility] MEDICINE [address] [place], [place] [phone] Shannon Ordaz MD 230 [place], [place] [phone] Medication Question Social History Tobacco Use Types [...] were discussed however meditech reviewed and 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 * Telephone Encounter - [...] Description 04/17/2025 10:30 AM EDT Clinical Support [facility] MEDICINE [address] [place] [address] Kierra Carbajal RN 07/12/2025 2:00 PM EST Office Visit [facility] OPTOMETRY [address] [place] [address] Rivas, Raina, OD 230 [place] [address] documented as of this encounter Visit Diagnoses Not on filedocumented in this encounter Additional Health Concerns Assessment Noted Time PHQ-9 Depression Total Score: 12 023 11:08 AM EDT documented as of this encounter Care Teams Banking Specialist Relationship Specialty Start Date End Date Shannon Ordaz MD [address] [place] [address] PCP - General Family Medicine 06/11/19 Benjie Pineda FNP [address] [place] [address] Nurse Practitioner Family Medicine 05/23/23 [facility] 04/25/24 05/03/24 [facility] 08/28/24 marco 11/23/24 documented as of this encounter
--- OUTSIDE RECORDS SUMMARY | 2025-03-28 16:27 | XMS_ITS | Encounter Summary ---
Author Organization [employer] Address 75 [facility] 7t [place] [address] Care Team Providers Care Manager Of It Name Role Phone Shannon Ordaz MD Primary Care Provider + Benjie Pineda Unavailable Unavailable Reason for Visit * Reason Onset Date Comments FYI 03/22/2024 Encounter Details Date Type Department Care Team ([facility] st Contact Info) Description 03/22/2024 Telephone [facility] MEDICINE 230 [place], [place] [phone] Shannon Ordaz MD 230 [place], [place] [phone] FYI Social History Tobacco Use Types Packs/Day Years [...] 8:53 AM EDT Tc from [facility] at [facility] calling to inform the provider attempted to start services on 03/22 however patient refused due to having a Cardiology appt will re attempt on 03/23 to start services documented in this encounter Plan of Treatment Upcoming Encounters Date Type Department Care Team (Late st Contact Info) Description 04/17/2025 10:30 AM EDT Clinical Support [facility] MEDICINE [address] [place] [address] Kierra Carbajal, ESTELLE 07/12/2025 2:00 PM EST Office Visit [facility] OPTOMETRY [address] [place] [address] Raina Hathaway, OD 230 [place] [address] documented as of this encounter Goals Goal Patient Goal Type Associated Problems Recent Progress Patient-Stated? Author Blood Pressure < 140/90 Blood Pressure 166/80(2024 12:02 PM EDT) No [employer]Nathalyl Meeta popsa, PharmD Record your blood pressure once per day Blood Pressure No [employer]Gambl Meeta popsa, PharmD Take your medication every day Lifestyle No Piers-Gambl eMeetasa, PharmD documented as of this encounter Visit Diagnoses Not on filedocumented in this encounter Additional Health Concerns Assessment Noted Time PHQ-9 Depression Total Score: 2 11/15/19 24 11:12 AM EDT documented as of this encounter Care Teams Manager Of It Relationship Specialty Start Date End Date Shannon Ordaz MD 230 [place] [address] PCP - General Family Medicine 06/11/19 Benjie Pineda FNP [address] [place] [address] Nurse Practitioner Family Medicine 05/23/23 [facility] 04/25/24 05/03/24 [facility] 08/28/24 marco 11/23/24 documented as of this encounter
--- OUTSIDE RECORDS SUMMARY | 2025-03-28 16:27 | XMS_ITS | Encounter Summary ---
Author Organization [employer] Address [address] [place] [address] 7t [place] [address] Care Team Providers Care Freelance Translator Name Role Phone Shannon Ordaz MD Primary Care Provider + Benjie Pineda Unavailable Unavailable Reason for Visit * Reason Comments Med Refill Encounter Details Date Type Department Care Team (Late st Contact Info) Description 07/26/2022 Refill [facility] MEDICINE [address] [place] [address] Benjie Pineda FNP Major depressive disorder, recurrent [...] Description 04/17/2025 10:30 AM EDT Clinical Support [facility] MEDICINE 230 [place], [place] [phone] Kierra Carbajal, ESTELLE 07/12/2025 2:00 PM EST Office Visit [facility] OPTOMETRY [address] [place], [place] [phone] Raina Hathaway, OD 230 [place] [address] documented as of this encounter Visit Diagnoses Diagnosis Major depressive disorder, recurrent episode with mood-congruent psychotic features (CMS/HCC) ([facility]) documented in this encounter Additional Health Concerns Assessment Noted Time PHQ-9 Depression Total Score: 11 023 9:08 AM EST documented as of this encounter Care Teams Freelance Translator Relationship Specialty Start Date End Date Shannon Ordaz MD [address] [place] [address] PCP - General Family Medicine 06/11/19 Benjie Pineda FNP [address] [place] [address] Nurse Practitioner Family Medicine 05/23/23 [facility] 04/25/24 05/03/24 [facility] 08/28/24 marco 11/23/24 documented as of this encounter
--- OUTSIDE RECORDS SUMMARY | 2025-03-28 16:27 | XMS_ITS | Encounter Summary ---
Author Organization [employer] Address 75 [facility] 7t [place] [address] Care Team Providers Care Roof Mechanic Name Role Phone Shannon Ordaz MD Primary Care Provider + Benjie Pineda Unavailable Unavailable Encounter Details Date Type Department Care Team (Late st Contact Info) Description 04/24/2024 Orders Only [facility] [address] [place] [address] ProviderYarelis MD Social History Tobacco Use Types [...] Description 04/17/2025 10:30 AM EDT Clinical Support [facility] MEDICINE 230 [place], [place] [phone] Kierra Carbajal RN 07/12/2025 2:00 PM EST Office Visit [facility] OPTOMETRY [address] [place], [place] [phone] Raina Hathaway, OD 230 [place] [address] documented as of this encounter Goals Goal [...] documented as of this encounter Care Teams Roof Mechanic Relationship Specialty Start Date End Date Shannon Ordaz MD [address] [place] [address] PCP - General Family Medicine 06/11/19 Benjie Pineda FNP [address] [place] [address] Nurse Practitioner Family Medicine 05/23/23 [facility] 04/25/24 05/03/24 [facility] 08/28/24 marco 11/23/24 documented as of this encounter
--- OUTSIDE RECORDS SUMMARY | 2025-03-28 16:27 | XMS_ITS | Encounter Summary ---
Author Organization [employer] Address [address] [facility] 7t [place] [address] Care Team Providers Care Plant Production Manager Name Role Phone Shannon Ordaz MD Primary Care Provider + Benjie Pineda Unavailable Unavailable Reason for Visit * Reason Comments Med Refill Encounter Details Date Type Department Care Team ([facility] st Contact Info) Description 12/07/2024 Refill [facility] MEDICINE [address] [place], [place] [phone] Shannon Ordaz MD [address] [place], [place] [phone] Anxiety and depression Social History Tobacco Use Types Packs/Day Years Used Date Smoking Tobacco: Former Cigarettes Passive Smoke Exposure: Past Smokeless Tobacco: Never Alcohol Use Standard Drinks/Week Comments Never 0 (1 standard drink = 0.6 oz pur e alcohol) Depression Answer Date Recorded Patient Health Questionnaire-9 Score 09/04/2024 Patient Health Questionnaire-9 Score 19 09/04/2024 [...] Description 04/17/2025 10:30 AM EDT Clinical Support [facility] MEDICINE [address] [place] [address] Kierra Carbajal RN 07/12/2025 2:00 PM EST Office Visit [facility] OPTOMETRY [address] [place] [address] Rivas, Raina, OD 230 [place] [address] documented as of this encounter Goals Goal [...] documented as of this encounter Care Teams Plant Production Manager Relationship Specialty Start Date End Date Shannon Ordaz MD 230 [place] [address] PCP - General Family Medicine 06/11/19 Benjie Pineda FNP [address] [place] [address] Nurse Practitioner Family Medicine 05/23/23 [facility] 08/28/24 marco 11/23/24 documented as of this encounter
--- OUTSIDE RECORDS SUMMARY | 2025-03-28 16:27 | XMS_ITS | Clinical Summary ---
Author Organization [facility] Address [address] [place] [address] Phone Care Team Providers Care Detective And Intelligence Analyst Name Role Phone Shannon Ordaz MD Primary Care Provider [phone] Allergies Active Allergy Reactions Criticality Noted Date Comments Vortioxetine 08/27/2020 Other reaction(s): Itching Medications aspirin 81 mg EC tablet Take [...] time each day in the morning. Active omeprazole (PriLOSEC) [address] capsule [...] time each day in the morning. Active bumetanide (BUMEX) 1 mg tablet Take 1 tablet (1 mg total) by mouth 1 (one) time each day. Active traZODone (DESYREL) 50 mg tablet Take 0.5 tablets (25 mg total) by mouth once daily as needed. 11/14/2024 Active mirtazapine (REMERON) 45 mg tablet Take 1 tablet (45 mg total) by mouth at bedtime. at bedtime. 10/07/2024 Active Active Problems No known active problems Resolved Problems Problem Noted Date Diagnosed Date Resolved Date COPD exacerbation ([facility] V24, [facility] V28) 11/22/2024 ARF (acute renal failure) ([facility] V24) 08/22/2024 08/23/2024 Encounters Date Type Department Care Team Description 02/18/2025 11:34 AM EDT - 02/18/2025 12:[address] [facility] Emergency [address] [place] [phone] Damon Dugan MD Abscess (Primary Dx) Discharge Disposition: Home or Self Care from Last 3 Months Surgical History Surgery Date Site/Laterality Comments STEREOTACTIC CORE BIOPSY Left Medical History Medical History Date Comments Asthma COPD (chronic obstructive pulmonary disease) ([facility] S/HCC V24, [facility] V28) Depression Hypercholesteremia Hypertension Peripheral neuropathy GERD (gastroesophageal reflux disease) Glaucoma CVA (cerebral vascular accident) ([facility] V24, [facility] V28) Family History Medical History Relation Name Comments Breast cancer Maternal Grandmother Breast cancer Mother Diabetes Mother Relation Name Status Comments Maternal Grandmother Mother Social History Tobacco Use Types Packs/Day Years Used Date Smoking Tobacco: Never Smokeless Tobacco: Never Tobacco Cessation:Counseling Given: Not Answered Alcohol Use Standard Drinks/Week Comments Not Currently 0 (1 standard drink = 0.6 oz pur e alcohol) Interpersonal Safety Answer Date Record ed Physical Abuse Unrecognized value 11/20/2024 Verbal Abuse Unrecognized value 11/20/2024 Comments No Sex and Gender Information Value Date Recorded Sex Assigned at Female 08/22/2024 9:25 AM EST Legal Sex Female 1:18 AM EST Gender Identity Female 05/01/2024 3:05 PM EST Sexual Orientation Straight 08/22/2024 9: 25 AM EST Obstetrics History Para Term AB IAB SAB Ectopic Multiple Livin g Live Births 3 Last Filed Vital Signs Vital Sign Reading Time Taken Comments Blood Pressure 96/68 02/18/2025 10:48 AM EDT Pulse 78 02/18/2025 10:48 AM EDT Temperature 36.8 C (98.2 F) 02/18/2025 10:48 AM EDT Respiratory Rate 16 02/18/2025 10:48 AM EDT Oxygen Saturation 100% 02/18/2025 10:48 AM EDT Inhaled Oxygen Concentration - - Weight 82.1 kg (181 lb) 02/18/2025 10:48 AM EDT Height 157.5 cm (5' 2 ) 02/18/2025 10:48 AM EDT Body Mass Index 33.11 02/18/2025 10:48 AM EDT Plan of Treatment Health Maintenance Due Date Last Done Comments Colorectal Cancer Screening: Colonoscopy 1960 RSV Immunization Adult Patients (1 - Risk 60-74 years 1-dose series) 2018 Cholesterol Screening (Lipid Panel) 01/17/2024 Hepatitis C Screening 01/17/2024 Medicare Annual Wellness Visit 01/17/2024 Osteoporosis Screening (Bone Density Screening) 01/17/2024 Social Influencers of Health Screening 01/17/2024 Depression Screening 06/27/2024 COVID-19 Vaccine ( season) 2025 11/25/2020, 10/29/2020 Influenza Vaccine (#1) 2025 4, 05/14/2022, 09/24/2021, Additional history exists Falls Risk Assessment 11/22/2025 11/22/2024 Hypertension/CHF/CAD Annual BMP Blood Test 12/25/2025 12/25/2024, 11/21/2024, 11/20/2024, Additional history exists Breast Cancer Screening 12/06/2026 12/06/2024, 12/22 DTaP,Tdap,and Td Vaccines (2 - Td or Tdap) 05/08/2030 05/08/2020 Zoster Vaccines Completed 01/13/2023, 05/08/2020 Pneumococcal Vaccine: 50+ Years Completed 01/09/2024, 06/03/2020, 10/18/2018 HIB Vaccines Aged Out No longer eligi [...] age to complete this topic Meningococcal B Vaccine Aged Out No l onger eligible based on patient's age to complete this topic RSV Immunization Patients Under 20 months Aged Out No longer eligible based on patient's age to complete this topic Varicella Vaccines Aged Out No longer eligible based on patient's age to complete this topic Procedures Procedure Name Priority Date/Time Associated Diagnosis Comments HC I&D/EXCISION/BIOPSY BONE MARROW/TISSUE/TUMOR /HTOMA/ABSC/CYST LEVEL 1 Routine 02/18/2025 12:20 PM EDT IL INCISION & DRAINAGE ABSCESS SIMPLE/SINGLE Routine 02/18/2025 12:20 PM EDT BASIC METABOLIC PANEL STAT 12/25/2024 8:27 AM EDT MG MAMMO DIGITAL SCREENING W MAXIMILIAN BILAT Routine 12/06/2024 3:00 PM EDT Encounter for screening mammogram for malignant neoplasm of breast from Last 3 Months or Most Recently Relevant to Health Maintenance Results * IL INCISION & DRAINAGE ABSCESS SIMPLE/SINGLE, HC I&D/EXCISION/BIOPSY BONE MARROW/TISSUE/TUMOR/HTOMA/ABSC/CYST LEVEL 1 (02/18/2025 12:20 PM EDT) Damon Zayas MD - 02/18/2025 12:20 PM EDT HYUN Mccormick 02/18/2025 9:50 PM Incision and Drainage Date/Time: 02/18/2025 12:20 PM Performed by: HYUN Mccormick Authorized by: Damon Dugan MD Consent: Consent obtained: Verbal Consent given by: Patient Risks, benefits, and alternatives were discussed: yes Risks discussed: Bleeding, incomplete drainage, pain and infection Roby protocol: Procedure explained and questions answered to patient or proxy's satisfaction: yes Relevant documents present and verified: yes Patient identity confirmed: Verbally with patient, arm band and hospital-assigned identification number Location: Type: Abscess Size: 2.5cm Location: L trapezius. Pre-procedure details: Skin preparation: Povidone-iodine Anesthesia: Anesthesia method: Local infiltration Local anesthetic: Lidocaine 1% w/o epi (2 cc's used) Procedure type: Complexity: Simple Procedure details: Incision types: Stab incision (1 cm stab incision) Incision depth: Dermal Wound management: Probed and deloculated Drainage: Purulent and bloody Drainage amount: Copious Wound treatment: Wound left open Packing materials: None Post-procedure details: Procedure completion: Tolerated Damon Dugan MD IN CLINIC/BEDSIDE ORDERABLES Fin al Result * (ABNORMAL) Basic metabolic panel (12/25/2024 8:27 AM EDT) Sodium 142 133 - 145 mmol/L LAB CHEMISTRY METHOD 12/25/2024 9:10 AM EDT [facility] Potassium 3.9 3.5 - 5.5 mmol/L LAB CHEMISTRY METHOD 12/25/2024 9:10 AM EDT [facility] Chloride 109 96 - 110 mmol/L LAB CHEMISTRY METHOD 12/25/2024 9:10 AM [facility] CO2 26 21 - 32 mmol/L LAB CHEMISTRY METHOD 12/25/2024 9:10 AM [facility] Anion Gap 7 3 - 11 LAB CHEMISTRY METHOD 12/25/2024 9:10 AM [facility] Glucose 102(H) 70 - 100 mg/dL LAB CHEMISTRY METHOD 12/25/2024 9:10 AM [facility] BUN 12 5 - 25 mg/dL LAB CHEMISTRY METHOD 12/25/2024 9:10 AM [facility] Creatinine 1.30(H) 0.50 - 1.10 mg/dL LAB CHEMISTRY METHOD 12/25/2024 9:10 AM [facility] eGFR 45(L) >=60 mL/min/1. 73m2 LAB CHEMISTRY METHOD 12/25/2024 9:10 AM [facility] Comment:Calculation based on the Chronic Kidney Disease Epidemiology Collaboration (CKD-EPI) equation refit without adjustment for race. BUN/Creatinine Ratio 9.2 LAB CHEMISTRY METHOD 12/25/2024 9:10 AM [facility] Calcium 8.5 8.5 - 10.5 mg/dL LAB CHEMISTRY METHOD 12/25/2024 9:10 AM [facility] Blood Venous blood specimen / Unknown Venipuncture / Unknown 12/25/2024 8:27 AM EDT 12/25/2024 8:42 AM EDT us Keon Nunes DO LAB BLOOD ORDERABLES Final Result [facility] [address] [place] [address], * MG Mammo Digital Screening w Maximilian bilat (12/06/2024 3:00 PM EDT) Anatomical Region Laterality Modality Breast Bilateral Mammography 12/06/2024 4:51 PM EDT Impressions 12/06/2024 4:58 PM EDT No mammographic evidence of malignancy. A negative mammogram in the presence of a clinically suspicious palpable abnormality does not preclude the possibility of malignancy or alter the indications for biopsy. ASSESSMENT: BI-RADS 2: BENIGN RECOMMENDATION(S): 1: Routine screening mammogram BILATERAL in 1 year. [facility]ammography location[facility] [address], [address] -------- FINAL REPORT -------- Dictated By: Otf Hoyos Dictated Date: 12/06/2024 16:51 ET Assigned Physician: Otf Hoyos Reviewed and Electronically Signed By: Otf Hoyos Signed Date: 12/06/2024 16:58 ET Workstation ID: [id number] Transcribed By: Self Edit Transcribed Date: 12/06/2024 16:51 ET Narrative 12/06/2024 4:58 PM EDT EXAM: SCREENING MAMMOGRAPHY, BILATERAL HISTORY: SCREENING. Family history of breast cancer, mother, maternal grandmother COMPARISON: None available TECHNIQUE: Synthesized CC and MLO projections of each breast. Tomosynthesis of each breast in the CC and MLO projections. ADDITIONAL IMAGING: None Computer-aided detection was employed with the [employer] AI 3-D. TISSUE DENSITY: There are scattered areas of fibroglandular density. (BI-RADS category B) FINDINGS: RIGHT BREAST: No suspicious mass. No suspicious calcification. No distortion. No additional suspicious right breast findings LEFT BREAST: No suspicious mass. No suspicious calcification. No distortion. There are 2 oval masses in the central left breast with associated dystrophic calcifications. These have the typically benign appearance of degenerating fibroadenomata. Procedure Note Otf Hoyos MD - 12/06/2024 EXAM: SCREENING MAMMOGRAPHY, BILATERAL HISTORY: SCREENING. Family history of breast cancer, mother, maternalgrandmother COMPARISON: None available TECHNIQUE: Synthesized CC and MLO projections of each breast.Tomosynthesis of each breast in the CC and MLO projections. ADDITIONAL IMAGING: None Computer-aided detection was employed with the [employer] AI 3-D. TISSUE DENSITY: There are scattered areas of fibroglandular density.(BI-RADS category B) FINDINGS: RIGHT BREAST: No suspicious mass. No suspicious calcification. No distortion. Noadditional suspicious right breast findings LEFT BREAST: No suspicious mass. No suspicious calcification. No distortion. There are 2 oval masses in the central left breast with associateddystrophic calcifications. These have the typically benign appearance ofdegenerating fibroadenomata. IMPRESSION: No mammographic evidence of malignancy. A negative mammogram in the presence of a clinically suspicious palpableabnormality does not preclude the possibility of malignancy or alter theindications for biopsy. ASSESSMENT: BI-RADS 2: BENIGN RECOMMENDATION(S): 1: Routine screening mammogram BILATERAL in 1 year. [facility] location[facility] at [address], [address] -------- FINAL REPORT -------- Dictated By: Otf Hoyos Dictated Date: 12/06/2024 16:51 ET Assigned Physician: Otf Hoyos Reviewed and Electronically Signed By: Otf Hoyos Signed Date: 12/06/2024 16:58 ET Workstation ID: [id number] Transcribed By: Self Edit Transcribed Date: 12/06/2024 16:51 ET Shannon Ordaz MD IMG BI PROCEDURES Final Resu lt from Last 3 Months or Most Recently Relevant to Health Maintenance Insurance MEDICAID - [place] MEDICARE Advance Directives Documents on File Type Date Recorded Patient User Experience Developer Expl [facility] Care Decision (hx) 04/26/2024 Anahi Stuart SANDERSON DIRECTIVE * Full Code - Default (Latest Code Status on File) Date Activated Date Inactivated Comments 11/20/2024 2:50 PM 11/22/2024 5:30 PM This is orde r is used when code status has not been discussed with the patient, or code status is otherwise unknown/unconfirmed To update the patient's code status, place a code status order. Do not modify or discontinue any currently active code status orders. * Full Code - Default Date Activated Date Inactivated Comments 08/22/2024 12:30 PM 08/23/2024 3:29 PM This is ord er is used when code status has not been discussed with the patient, or code status is otherwise unknown/unconfirmed To update the patient's code status, place a code status order. Do not modify or discontinue any currently active code status orders. Care Teams Detective And Intelligence Analyst Relationship Specialty Start Date End Date Shannon Ordaz MD [address] [place] [phone] PCP - General Internal Medicine 08/22/24
--- OUTSIDE RECORDS SUMMARY | 2025-03-28 16:27 | XMS_ITS | Encounter Summary ---
Author Organization [employer] Address [address] [facility] 7t [place] [address] Care Team Providers Care Accounting Practice Manager Name Role Phone Shannon Ordaz MD Primary Care Provider + Benjie Pineda Unavailable Unavailable Reason for Visit * Reason Comments Med Refill Encounter Details Date Type Department Care Team ([facility] st Contact Info) Description 12/10/2024 Refill [facility] [address] [place], [place] [phone] Shannon Ordaz MD [address] [place], [place] [phone] Major depressive disorder, recurrent episode with mood-congruent [...] Description 04/17/2025 10:30 AM EDT Clinical Support [facility] [address] [place] [address] Kierra Carbajal, ESTELLE 07/12/2025 2:00 PM EST Office Visit [facility] OPTOMETRY [address] [place] [address] Raina Hathaway, OD [address] [place] [address] documented as of this encounter Goals Goal [...] documented as of this encounter Care Teams Accounting Practice Manager Relationship Specialty Start Date End Date Shannon Ordaz MD [address] [place] [address] PCP - General Family Medicine 06/11/19 Benjie Pineda FNP [address] [place] [address] Nurse Practitioner Family Medicine 05/23/23 [facility] 08/28/24 khaiara 11/23/24 documented as of this encounter
--- OUTSIDE RECORDS SUMMARY | 2025-03-28 16:27 | XMS_ITS | Encounter Summary ---
Author Organization [employer] Address [address] [facility] 7t [place] [address] Care Team Providers Care Special Services Director Name Role Phone Shannon Ordaz MD Primary Care Provider + Benjie Pineda Unavailable Unavailable Encounter Details Date Type Department Care Team (Late st Contact Info) Description 11/23/2023 Orders Only [facility] [address] [place] [address] Provider, MD Yarelis Social History Tobacco Use Types Packs/Day Years [...] housing situation today? I have adelfofabiano lazo 04/12/[address] you [...] Description 04/17/2025 10:30 AM EDT Clinical Support [facility] [address] [place] [address] Kierra Carbajal RN 07/12/2025 2:00 PM EST Office Visit [facility] OPT[facility]ETRY [address] [place] [address] Raina Hathaway, OD [address] [place] [address] documented as of this encounter Procedures Procedure [...] as of this encounter Care Teams Special Services Director Relationship Specialty Start Date End Date Shannon Ordaz MD [address] [place] [address] PCP - General Family Medicine 06/11/19 Benjie Pineda FNP [address] [place] [phone] Nurse Practitioner Family Medicine 05/23/23 [facility] 04/25/24 05/03/24 [facility] 08/28/24 marco 11/23/24 documented as of this encounter
--- OUTSIDE RECORDS SUMMARY | 2025-03-28 16:27 | XMS_ITS | Encounter Summary ---
Author Organization [employer] Address [address] [facility] 7t [place] [address] Care Team Providers Care Diagram Clerk Name Role Phone Shannon Ordaz MD Primary Care Provider + Benjie Pineda Unavailable Unavailable Encounter Details Date Type Department Care Team (Late Contact Info) Description 03/01/[address] [facility] MEDICINE [address] [place] [phone] Shannon Ordaz MD [address] [place], [place] [phone] Social History Tobacco Use Types Packs/Day Years [...] Description 04/17/2025 10:30 AM EDT Clinical Support [facility] [address] [place], [place] [phone] Kierra Carbajal RN 07/12/2025 2:00 PM EST Office Visit [facility] OPTOMETRY [address] [place], [place] [phone] Raina Hathaway, OD [address] [place], [place] [phone] documented as of this encounter Visit Diagnoses Not on filedocumented in this encounter Additional Health Concerns Assessment Noted Time PHQ-9 Depression Total Score: 8 02/02/20 23 11:15 AM EDT documented as of this encounter Care Teams Diagram Clerk Relationship Specialty Start Date End Date Shannon Ordaz MD [address] [place] [address] PCP - General Family Medicine 06/11/19 Benjie Pineda FNP [address] [place] [address] Nurse Practitioner Family Medicine 05/23/23 [facility] 04/25/24 05/03/24 [facility] 08/28/24 macro 11/23/24 documented as of this encounter
--- OUTSIDE RECORDS SUMMARY | 2025-03-28 16:27 | XMS_ITS | Encounter Summary ---
Author Organization [employer] Address [address] [facility] 7t [place] [address] Care Team Providers Care Bear Keeper Name Role Phone Shannon Ordaz MD Primary Care Provider + Benjie Pineda Unavailable Unavailable Encounter Details Date Type Department Care Team (Late st Contact Info) Description 09/07/2024 Telephone [facility] [address] [place], [place] [phone] Shannon Ordaz MD [address] [place], [place] [phone] Social History Tobacco Use Types Packs/Day Years [...] Description 04/17/2025 10:30 AM EDT Clinical Support [facility] [address] [place] [address] Kierra Carbajal RN 07/12/2025 2:00 PM EST Office Visit [facility] OPTOMETRY [address] [place] [address] Rivas, Raina, OD [address] [place] [address] documented as of this encounter Goals Goal [...] documented as of this encounter Care Teams Bear Keeper Relationship Specialty Start Date End Date Shannon Ordaz MD [address] [place] [address] PCP - General Family Medicine 06/11/19 Benjie Pineda FNP [address] [place] [phone] Nurse Practitioner Family Medicine 05/23/23 [facility] 08/28/24 marco 11/23/24 documented as of this encounter
--- OUTSIDE RECORDS SUMMARY | 2025-03-28 16:27 | XMS_ITS | Encounter Summary ---
Author Organization [employer] Address [address] [facility] 7t [place] [address] Care Team Providers Care Disk Recordist Name Role Phone Shannon Ordaz MD Primary Care Provider + Benjie Pineda Unavailable Unavailable Encounter Details Date Type Department Care Team (Late st Contact Info) Description 03/28/2025 Orders Only [facility] [address] [place], [place] [phone] Shannon Ordaz MD [address] [place], [place] [phone] Social History Tobacco Use Types Packs/Day Years [...] [facility] [address] [place] [address] Kierra Carbajal, ESTELLE 07/12/2025 2:00 PM EST Office Visit [facility] OPTOMETRY [address] [place] [address] Raina Hathaway, OD [address] [place] [address] documented as of this encounter Goals Goal [...] Procedure Name Priority Date/Time Associated Diagnosis Comments HOLD LAVENDER - POSSIBLE HEMATOLOGY Routine 03/28/2025 3:05 PM EDT documented in this encounter Results * Hold Lavender - Possible Hematology (03/28/2025 3:05 PM EDT) Hold Lavender - Possible Hematololgy SEE NOTE [facility] Comment:Specimen will be hel d untested for 8 hours. Call Hematologyif testing is desired. 03/28/2025 3:05 PM EDT 03/28/2025 4:22 PM EDT Shannon Ordaz MD HISTORICAL/NON ORDERABLE LABS Final Result [facility] [address] [place] [address] [phone] documented in this encounter Visit Diagnoses Not on filedocumented in this encounter Additional Health Concerns Assessment Noted Time PHQ-9 Depression Total Score: 8 03/22/20 25 12:07 PM EDT documented as of this encounter Care Teams Disk Recordist Relationship Specialty Start Date End Date Shannon Ordaz MD [address] [place] [address] PCP - General Family Medicine 06/11/19 Benjie Pineda FNP [address] [place] [address] Nurse Practitioner Family Medicine 05/23/23 [facility] 08/28/24 marco 11/23/24 documented as of this encounter
--- OUTSIDE RECORDS SUMMARY | 2025-03-28 16:27 | XMS_ITS | Encounter Summary ---
Author Organization [employer] Address [address] [facility] 7t [place] [address] Care Team Providers Care Electronics Assembler And Tester Name Role Phone Shannon Ordaz MD Primary Care Provider + Benjie Pineda Unavailable Unavailable Reason for Visit * Reason Onset Date Comments Pre-op Exam 06/21/2024 Encounter Details Date Type Department Care Team ([facility] st Contact Info) Description 06/21/2024 Telephone [facility] [address] [place], [place] [phone] Shannon Ordaz MD [address] [place], [place] [phone] Pre-op Exam Social History Tobacco Use Types [...] Melita Stevenson - 06/21/2024 9:57 AM EST Oil Recovery Operator spoke with Melanie at [facility] and agreed to inform pt she is scheduled for pre op on 07/25/24 at 9AM with . Appointment reminder letter mailed Date of Surgery: 08/07/2024 and 08/23/2024 (right eye) Surgical procedure being done: Cataract Surgery Type of anesthesia: MAC Lab needed: No EKG: No Surgeon's name: Tino Falk Facility name: [facility] Surgeon's office number: [phone] Ext [phone] Surgeon's office fax number: [phone] Contact name (person you spoke with): Melanie Last office note from surgeon requested: No * Telephone Encounter - Watson Abdi - 06/21/2024 9:08 AM EST Date of Surgery: 08/07/2024 and 08/23/2024 (right eye) Surgical procedure being done: Cataract Surgery Type of anesthesia: MAC Lab needed: No EKG: No Surgeon's name: Tino Falk Facility name: [facility] Surgeon's office number: [phone] Surgeon's office fax number: [phone] Contact name (person you spoke with): Melanie Last office note from surgeon requested: No Send Message to Melita Stevenson and Marc Apodaca documented in this encounter Plan of Treatment Upcoming Encounters Date Type Department Care Team (Late st Contact Info) Description 04/17/2025 10:30 AM EDT Clinical Support [facility] [address] [place] [address] Kierra Carbajal, ESTELLE 07/12/2025 2:00 PM EST Office Visit [facility] OPTOMETRY [address] [place] [address] Raina Hathaway, OD [address] [place] [address] documented as of this encounter Goals Goal [...] documented as of this encounter Care Teams Electronics Assembler And Tester Relationship Specialty Start Date End Date Shannon Ordaz MD [address] [place] [phone] PCP - General Family Medicine 06/11/19 Benjie Pineda FNP [address] [place] [phone] Nurse Practitioner Family Medicine 05/23/23 [facility] 08/28/24 elara 11/23/24 documented as of this encounter
--- OUTSIDE RECORDS SUMMARY | 2025-03-28 16:27 | XMS_ITS | Encounter Summary ---
Author Organization [employer] Address [address] [place] [address] Care Team Providers Care Skein Straightener Name Role Phone Shannon Ordaz MD Primary Care Provider + Benjie Pineda Unavailable Unavailable Encounter Details Date Type Department Care Team (Late st Contact Info) Description 11/22/2024 Orders Only [facility] [address] [place] [address] ProviderYarelis MD Social History Tobacco Use Types [...] 04/17/2025 10:30 AM EDT Clinical Support [facility] MEDICINE [address] [place], [place] [phone] Kierra Carbajal RN 07/12/2025 2:00 PM EST Office Visit [facility] OPTOMETRY [address] [place], [place] [phone] Raina Hathaway, OD [address] [place] [address] documented as of this encounter Goals Goal [...] Name Priority Date/Time Associated Diagnosis Comments CT CHEST W CONTRAST Routine 11/20/2024 11:29 AM EDT documented in this encounter Results * CT Chest w/ Contrast (11/20/2024 11:29 AM EDT) Anatomical Region Laterality Modality Body, Chest Computed Tomogra phy us Historical Provider MD [facility] CT PROCEDURES Final R esult documented in this encounter Visit Diagnoses Not on filedocumented in this encounter Additional Health Concerns Assessment Noted Time PHQ-9 Depression Total Score: 19 025 2:46 PM EDT documented as of this encounter Care Teams Skein Straightener Relationship Specialty Start Date End Date Shannon Ordaz MD [address] [place] [address] PCP - General Family Medicine 06/11/19 Benjie Pineda FNP [address] [place] [address] Nurse Practitioner Family Medicine 05/23/23 [facility] 08/28/24 elara 11/23/24 documented as of this encounter
--- OUTSIDE RECORDS SUMMARY | 2025-03-28 16:27 | XMS_ITS | Clinical Summary ---
Author Organization [employer] Address [address] [facility] [address] [place] [address] Care Team Providers Care Buckle Coverer Name Role Phone Brooks Smith MD Primary Care Provider + Benjie Pineda [...] by mouth in the morning. 024 Active liver oil-zinc oxide (Desitin) 40 % ointment Apply topically if needed for irritation. 56 g 024 Active polyvinyl alcohol (Liquifilm Tears) 1.4 % ophthalmic solution INSTILL 1 DROP INTO THE AFFECTED EYE(S) FIVE TIMES DAILY 024 Active albuterol 1.25 MG/3ML nebulizer solutionIndicatio ns:Moderate persistent asthma with acute exacerbation Take 3 mL (1.25 mg) by nebulization every 6 (six) hours if needed for wheezing. 75 mL 3 024 Active albuterol 108 (90 Base) MCG/ACT inhaler Inhale 2 puffs every 4 (four) hours if needed for wheezing or shortness of breath. 18 g 1 024 Active carvedilol (Coreg) 3.125 MG [...] by MD. 30 patch 1 024 Active Aspirin Low Dose 81 MG EC tabletIndications :TIA (transient ischemic attack) TAKE 1 TABLET BY MOUTH EVERY MORNING 90 tablet 3 Active omeprazole (PriLOSEC) [address] capsule Take 1 capsule by mouth Once per day. Active ketorolac (Acular) 0.5 % ophthalmic solution INSTILL 1 DROP AFFECTED EYE(S) THREE TIMES DAILY STARTING 2 DAYS BEFORE SURGERY, CONTINUE DIRECTED Active brimonidine (AlphaGAN) 0.2 % ophthalmic solution Administer 1 drop into the right eye 3 times daily. 025 Active triamcinolone (Kenalog) 0.1 % cream Apply topically if needed in the morning and at bedtime (pain and swelling). 30 g 2 025 Active atorvastatin (Lipitor) 10 MG tabletIndications :Mixed hyperlipidemia TAKE 1 TABLET BY MOUTH AT BEDTIME 90 tablet 025 Active gabapentin (Neurontin) 600 MG tabletIndications :Anxiety and depression TAKE 1 TABLET BY MOUTH TWICE DAILY IN THE MORNING AND AT BEDTIME 60 tablet 025 Active mirtazapine (Remeron) 15 MG tablet Take 1 tablet (15 mg) by mouth if needed each day (anxiety). 30 tablet 11 025 Active mirtazapine (Remeron) 45 MG tablet TAKE 1 TABLET BY MOUTH AT BEDTIME 30 tablet 025 Active naloxone (Narcan) 4 mg/0.1 mL nasal sprayIndications: Long-term current use of benzodiazepine Administer 1 spray (4 mg) into affected nostril(s) if needed for opioid reversal. May repeat every 2-3 minutes if needed, alternating nostrils, until medical assistance becomes available. 2 each 3 025 2025 Active buPROPion XL (Wellbutrin XL) 150 MG 24 hr tabletIndications :Major depressive disorder, recurrent episode with mood-congruent psychotic features (CMS/HCC) (HCC) Take 1 tablet (150 mg) by mouth in the morning. 30 tablet 1 025 2024 Active docusate sodium (Colace) 100 MG capsuleIndication s:Slow transit constipation TAKE 1 CAPSULE BY MOUTH TWICE DAILY IN THE MORNING AND AT BEDTIME NEEDED FOR CONSTIPATION 180 capsule 1 025 Active lisinopril 10 MG tabletIndications :Hypertensive emergency TAKE 1 TABLET BY MOUTH EVERY MORNING 90 tablet 1 025 Active LORazepam (Ativan) 0.5 MG tabletIndications :Major depressive disorder, recurrent episode with mood-congruent psychotic features (CMS/HCC) (HCC) Take 1 tablet (0.5 mg) by mouth if needed at bedtime for anxiety. Do not start before March 21, 2025. 28 tablet Active lisinopril 10 MG tabletIndications :Hypertensive emergency TAKE 1 TABLET BY MOUTH EVERY MORNING 90 tablet 1 025 2024 Discontinued docusate sodium (Colace) 100 MG capsuleIndication s:Slow transit constipation TAKE 1 CAPSULE BY MOUTH TWICE DAILY IN THE MORNING AND AT BEDTIME NEEDED FOR CONSTIPATION 180 capsule 1 025 2024 Discontinued LORazepam (Ativan) 0.5 MG tabletIndications :Major depressive disorder, recurrent episode with mood-congruent psychotic features (CMS/HCC) (HCC) Take 1 tablet (0.5 mg) by mouth if needed at bedtime for anxiety. 28 tablet 025 2024 Discontinued(R eorder (will not trigger notification to Pharmacy)) Active Problems Patient Care Coordination No te Formatting of this note migh t be different from the original. C3/CM Shiloh Leonardo RN Problem Noted Date Diagnosed Date FAUSTO (generalized anxiety disorder) 02/26/2025 Long-term current use of benzodiazepine 02/08/20 25 Bacterial gastroenteritis 01/17/2025 Assessment & Plan (01/17/2025 1:48 PM EDT): Order stool test if today's diarrhea continues for over 3 days. We discussed the possibility of the diabetes related to food intolerance instead, patient will keep a food and symptom diary Advised regarding increase hydration, see above Class 1 obesity due to exces s [...] prevent accidents at home. She has a [employer] to help with ADLs, I told patient to avoid any activity that can put her at risk , that otherwise is to be assisted by [employer] . Anemia 02/13/2024 Assessment & Plan (01/17/2025 1:50 PM EDT): Hemoglobin was baseline, will continue monitoring History of colon polyps 01/10/2024 Internal hemorrhoids 01/10/2024 Assessment & Plan (04/03/2024 1:26 PM EDT): - bleeding is resolved - advised to avoid constipation, use preparation age cream PRN - last colonoscopy done 2023 Lumbosacral spondylosis 01/10/2024 Nocturnal hypoxemia 01/10/2024 ESME (obstructive sleep apnea) 01/10/2024 Assessment & Plan (04/03/2024 1:00 PM EDT): - pt needs to use CPAP every night to decrease morbidity and mortality Pulmonary nodules 01/10/2024 Sacroiliac joint pain 01/10/2024 Sickle cell trait 01/10/2024 Assessment & Plan (05/23/2024 9:33 AM EST): Patient is asymptomatic, doesn't have anemia. No need to fu on this. Bilateral hip pain 01/10/2024 Chest pain of unknown etiology 01/10/2024 Acid reflux 01/10/2024 Hyperlipidemia 01/10/2024 Dyspnea on exertion 01/10/2024 Dry eye 11/11/2023 Assessment & Plan (11/11/2023 1:23 PM EDT): Use natural tears Laceration of right ear lobe 10/17/2023 Assessment & Plan (10/17/2023 2:35 PM EDT): Apparently due to rubbing of nasal canula hose at night. Keep lesion clean and dry, use zinc oxide daily to affected area , put gauze on upper part of ear lobe to protect skin from further injury. Lumbar radiculopathy 10/17/2023 Assessment & Plan (11/23/2024 3:39 PM EDT): Seems to be doing much better on Tylenol as needed, reminded her to walk with a cane for prevention of falls. Reminded her to call pain clinic for epidural injection as needed Assessment & Plan (11/23/2024 8:54 AM EDT): >>ASSESSMENT AND PLAN FOR LUMBAR DISC DISEASE WRITTEN ON 10/17/2023 2:33 PM BY BROOKS SMITH MD Has POS MRI on 12/2022, last seen at Pain clinic >3mo ago due to TIA. Its been >6 mo since episode and she has been stable. I tld her to call back [facility] Pain clinic to rs lumbar epidural injections before spine disease gets worse. Assessment & Plan (11/23/2024 8:54 AM EDT): >>ASSESSMENT AND PLAN FOR LUMBAR DISC DISEASE WRITTEN ON 11/11/2023 1:23 PM BY TRAV LANGLEY She has significant DJD of the lumbar [...] has DME at home to prevent falls Colitis 10/07/2023 Assessment & Plan (10/10/2023 5:53 [...] with GI. Stage 3a chronic kidney disease (CMS/HCC) 2023 Assessment & Plan (11/23/2024 3:39 PM EDT): GFR remained stable as of most recent hospitalization this weekend. Reminded her to increase water intake and take all her medications specially hypertension meds. Continue follow-up BMP every 6 months Assessment & Plan (05/23/2024 10:04 AM EST): [...] supplementation at night only FU with pulmo Diarrhea 06/02/2023 Assessment & Plan (01/17/2025 1:51 PM EDT): Today's is probably mostly related to food intolerance, I asked her to hold solid diet, increase hydration: Herbal teas etc., meal, Gatorade, Pedialyte, water, chicken broth etc. advance to brat diet as tolerated and tomorrow probably to soft diet. Keep a food and symptom diary and follow-up with me in 1 month Check stool test if symptoms continue for more than 3 days, she will go to ED if she develops severe dizziness, somnolence or fever. Assessment & Plan (04/26/2024 1:27 PM EDT): [...] Refer to Neurology to fu after MRI MUSHTAQ (acute kidney injury) 02/04/2023 Assessment & Plan (01/17/2025 1:46 PM EDT): Resolved, it was probably related to dehydration from diarrhea. Advised to increase hydration and continue hydration throughout episodes of diarrhea Check BMP prior to next appointment Assessment & Plan (09/04/2024 1:33 PM EDT): GFR is getting back to baseline, advised regarding proper PO intake and hydration. Fu with me in 3 months. Assessment & Plan (10/10/2023 5:54 PM EDT): [...] in 2-3 weeks for BP follow up. Nasal congestion 02/04/2023 Assessment & Plan (02/04/2023 12:10 PM EDT): Today's covid test is negative Pt told to use nasal saline and flonase until symptoms have resolved. COPD exacerbation (CMS/[facility]) 01/13/2023 Assessment & Plan (11/23/2024 3:43 PM EDT): Status post hospital discharge, doing well on Doxy + prednisone, advised to complete 3 days Continue DuoNeb nebs every 6 hours for the next 3 days then as needed, continue Anoro Advised regarding URI prevention, avoiding mask crowded spaces, avoid contact with sick persons Assessment & Plan (04/05/2024 3:57 PM EDT): [...] with her in 2m FU with pulmonology Lichen planus 11/15/2022 Assessment & Plan (11/15/2022 [...] r ecurrent episode with mood-congruent psychotic features (CMS/HCC) 05/31/2022 Assessment & Plan (11/15/2023 12:00 PM [...] bedtime, Wellbutrin XL 300 mg in am. Cárdenas's esophagus with dysplasia 05/24/2022 Assessment & Plan (01/06/2024 11:28 AM EDT): Sp EGD 06/2023 FU with GI Continue Omeprazole Bilateral leg edema 05/24/2022 Chronic cough 05/24/2022 Chronic gastritis 05/24/2022 Assessment & Plan (01/06/2024 11:29 AM EDT): Sp EGD Advised to use TUMS prn, may need sucralfate if not improved FU with GI Chronic sphenoidal sinusitis 05/24/2022 Closed fracture of metatarsal bone of left foot 05/24/2022 Disturbance in sleep behavior 05/24/2022 Assessment & Plan (12/28/2024 6:27 PM EDT): DC trazodone due to daytime somnolence. Restart mirtazapine 45 mg and I will add 50 mg as needed anxiety during the daytime. We discussed about proper hydration, tight control of chronic conditions, use of inhalers and blood pressure medications Follow-up with me in 6 weeks Assessment & Plan (11/23/2024 3:41 PM EDT): Improved with trazodone and better control of depression Continue follow-up with psychiatrist MARCELLE mirtazapine Assessment & Plan (09/04/2024 1:33 PM EDT): She is out of Mirtazapine as insurance did not cover previous dose. Mirtazapine 45 mg QHS was sent to pharmacy, pt to pick it up today and will fu at next appointment. 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 fU PFTS. Anxiety 03/07/2018 Assessment & Plan (01/17/2025 1:47 PM EDT): Will add Risperdal 0.25 mg with evening meal as she was taking previously, hold for somnolence on the next day. Continue mirtazapine 45 mg nightly and 7.5 twice daily as needed anxiety Continue gabapentin 600 mg and Wellbutrin Follow-up closely with new counselor and will be on a waiting list for psych prescriber She has not received lorazepam more than 1 month Assessment & Plan (12/28/2024 6:29 PM EDT): Add mirtazapine 15 mg as needed anxiety during the daytime Continue gabapentin 600 mg twice daily and Wellbutrin twice daily. Discussed about cutting down use of lorazepam and side effects including dizziness, MS changes, risk of dependence and worsening of anxiety. History of appendectomy 03/07/2018 History of cholecystectomy 03/07/2018 Hypercholesterolemia 03/07/2018 Assessment & Plan (02/14/2024 4:14 PM EDT): Obtain labs prior to next appt. Continue low dose atorvastatin for now, goal LDL is 70 Osteoporosis 03/07/2018 Assessment & Plan (09/04/2024 1:34 PM EDT): Pt has lumbar fracture, fu bone density test. Counseled regarding risk of falls. Consider fu with pain clinic. Neuropathy involving both lower extremities 02/25 Assessment [...] Problem Noted Date Diagnosed Date Resolved Date Depression with anxiety 01/10/202408/25 Assessment & Plan (09/04/2024 3:06 PM EDT): It's been exacerbated probably due to lack of Mirtazapine and she has been off Lorazepam for more than 3 months -->last refill picked up on 04/19/24. Restart Mirtazapine, continue Gabapentin, Bupropion, and Risperdal. Will reevaluate in 2-3 weeks to see if she needs to be back on Lorazepam, will refer to psychiatrist for med evaluation. 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 Abdominal pain 01/10/2024 11/23/2024 Meralgia paresthetica of right side 10/17/2023 11/23/2024 Assessment & Plan (10/17/2023 2:33 PM EDT): Reassurance, I told her to treat lumbar spine disease. 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 Encouraged physical activity as tolerated. Assessment & Plan (06/02/2023 11:38 AM EST): Had DM related to steroid injection use. Order labs and FU on next visit Acute cystitis with hematuria 01/13/2023 04/05/2024 Assessment & Plan (01/13/2023 4:10 PM EDT): Resolved. FU prn Closed fracture of fifth lum bar vertebra ([facility]) 11/15/2022 11/23/2024 Assessment & Plan (09/04/2024 1:35 PM EDT): Pt has chronic low back pain, does not want to go to pain clinic at this time. Take Gabapentin + Tylenol prn pain. Continue Lidocaine patch and stretching exercises. Fu in 3 months and we will decide further. Assessment & Plan (11/11/2023 1:22 PM EDT): [...] a cane, lidocaine patch, and continue PT Severe obesity (BMI 35.0-39. 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 Date Type Department Care Team Description 03/28/2025 Orders Only [address] [id number] Brooks Smith MD 03/26/[address] [address] Brooks Smith MD verbal orders 03/22/2025 11:30 AM EDT Procedure Visit [address] [address] Brooks Smith MD Encounter for cervical Pap smear with pelvic exam (Primary Dx); Cervicitis; Subacute vaginitis; Encounter for vaccination 03/22/2025 Travel 03/21/[address] [address] Brooks Smith MD chart prep 03/18/2025 10:30 AM EDT Clinical Support [address] [address] Kierra Carbajal, RN Long-term current use of benzodiazepine (Primary Dx) 03/18/[address] [address] Kierra Carbajal, RN Major depressive disorder, recurrent episode with mood-congruent psychotic features (CMS/HCC) 03/18/2025 Travel 03/06/2025 Refill [facility] [address] [place], [place] [phone] Brooks Smith MD Slow transit constipation; Hypertensive emergency; Mixed hyperlipidemia 02/26/2025 2:30 PM EDT Telemedicine [facility] MEDICINE [address] [place] [phone] Larissa Beauchamp RN Abscess 02/26/2025 Travel 02/21/[address] [facility] P[facility] [address] [place] [address] Brooks Smith MD Major depressive disorder, recurrent episode with mood-congruent psychotic features (CMS/HCC) 02/21/2025 Refill [facility] MED[facility]INE [address] [place] [phone] Brooks Smith MD Major depressive disorder, recurrent episode with mood-congruent psychotic features (CMS/HCC) 02/20/2025 Telephone [facility] MED[facility]INE [address] [place] [phone] Brooks Smith MD Med Refill 02/20/2025 Refill [facility] [address] [place] [address] Brooks Smith MD Major depressive disorder, recurrent episode with mood-congruent psychotic features (CMS/HCC) 02/20/2025 Refill [facility] [address] [place] [phone] Kierra Carbajal RN Major depressive disorder, recurrent episode with mood-congruent psychotic features (CMS/HCC) 02/13/[address] [facility] [address] [place], [place] [phone] Brooks Smith MD Major depressive disorder, recurrent episode with mood-congruent psychotic features (CMS/HCC) 02/07/2025 11:30 AM EDT Clinical Support [facility] [address] [place] [phone] Kierra Carbajal, ESTELLE Long-term current use of benzodiazepine (Primary Dx) 02/07/2025 Refill [facility] [address] [place] [phone] Brooks Smith MD Major depressive disorder, recurrent episode with mood-congruent psychotic features (CMS/HCC) 02/07/2025 Refill [facility] [address] [place] [phone] Kierra Carbajal RN Long-term current use of benzodiazepine (Primary Dx) 02/07/2025 Travel 01/21/2025 Telephone [facility] [address] [place] [phone] Brooks Smith MD Med Refill 01/21/2025 Refill [facility] [address] [place] [address] Brooks Smith MD Major depressive disorder, recurrent episode with mood-congruent psychotic features ([facility]/HCC) 01/17/2025 11:30 AM EDT Office Visit [facility] [address] [place] [phone] Brooks Smith MD Diarrhea, unspecified type (Primary Dx); Anxiety; MUSHTAQ (acute kidney injury) ([facility]); Bacterial gastroenteritis; Anxiety and depression; Anemia, unspecified type 01/17/2025 Travel 01/16/2025 Telephone [facility] [address] [place] [phone] Brooks Smith MD chart prep 01/10/[address] [facility] P[facility] [address] [place] [address] Brooks Smith MD Anxiety and depression 01/08/[address] [facility] [address] [place] [address] Brooks Smith MD Anxiety and depression; Mixed hyperlipidemia 01/07/2025 Telephone [facility] [address] [place] [phone] Brooks Smtih MD Yahaira recall 01/07/2025 Refill [facility] [address] [place] [phone] Brooks Smith MD Mixed hyperlipidemia; Anxiety and depression 12/26/2024 Orders Only [facility] [address] [place] [phone] Brooks Smith MD from Last 3 Months Immunizations Immunization Administration Dates Next Due Influenza injectable quadriv alent IIV4 with preservative 05/17/2018 Influenza injectable quadriv alent preservative free 05/14/2022,09/24/2021,04/23/2021,03/20,04/04/2019 Influenza, IIV3, injectable 03/19/2024,1 ,03/20/2020,04/04,05/17/2018 Moderna Covid-19 Vaccine 12+ 11/25/2020,10/30/19 21 Pfizer Covid-19 Vaccine 12+ 03/22/2025 Pneumococcal Conjugate PCV 20 01/09/2024 Pneumococcal Polysaccharide [...] Sign Reading Time Taken Comments Blood Pressure 166/80 03/22/2025 12:02 PM EDT Pulse 82 03/22/2025 12:02 PM EDT Temperature 36.6 C (97.9 F) 03/22/2025 12:02 PM EDT Respiratory Rate 19 03/22/2025 12:02 PM EDT Oxygen Saturation 96% 03/22/2025 12:02 PM EDT Inhaled Oxygen Concentration - - Weight 83.6 kg (184 lb 4 oz) 03/22/2025 12:02 PM EDT Height 157.5 cm (5' 2 ) 03/22/2025 12:02 PM EDT Body Mass Index 33.7 03/22/2025 12:02 PM EDT Plan of Treatment Upcoming Encounters Date Type Department Care Team (Late st Contact Info) Description 04/17/2025 10:30 AM EDT Clinical Support [facility] MEDICINE [address] [place] [address] Kierra Carbajal RN 07/12/2025 2:00 PM EST Office Visit [facility] OPTOMETRY [address] [place] [address] Raina Hathaway, OD [address] [place] [address] Health Maintenance Due Date Last Done Comments CT Colonography 1960 FIT DNA/Cologuard 1960 FIT 1960 FOBT 1960 Sigmoidoscopy 1960 Hepatitis C Screening 1976 RSV Patients and Patients Aged 60 years or older (1 - Risk 60-74 years 1-dose series) 2018 Influenza Vaccine (#1) 2025 , 05/14/2022, 09/24/2021, Additional history exists COVID-19 Vaccine ( season) 2025 03/22/2025, 11/25/2020, 10/29/2020 Mammogram 12/06/2025 12/06/2024, 11/25, 12/06/2024, Additional history exists Alcohol/Substance Use Screening 12/24/2025 12/24/2024 SDOH Screening 12/24/2025 12/24/2024 Depression Screening 03/22/2026 03/22/2025, 03/22/20 Tobacco Screening 03/22/2026 03/22/2025 Lipid Panel 06/02/2028 06/02/2023, 04/23/2020 Colonoscopy 07/19/2028 07/19/2023, 05/09/2018 Colorectal Cancer Screening 07/19/2028 DTaP/Tdap/Td Vaccines (2 - Td or Tdap) 05/08/2030 05/08/2020 HPV/Cotest Discontinued 05/17/2018 Zoster Vaccines Completed 01/13/2023, 05/08/2020 Pneumococcal Vaccine: 50+ Years Completed 01/09/2024, 06/03/2020, 10/18/2018 Cervical Cancer Screening Discontinued Pap Smear Discontinued 03/22/2025 HIB Vaccines Aged Out No longer eligi [...] POSSIBLE HEMATOLOGY Routine 03/28/2025 3:05 PM EDT PAP SMEAR Routine 03/22/2025 12:12 PM EDT Encounter for cervical Pap smear with pelvic exam POCT YANIRA-14 URINE DRUG SCREEN Routine 03/18/2025 10:32 AM EDT Long-term current use of benzodiazepine POCT YANIRA-14 URINE DRUG SCREEN Routine 02/07/2025 11:49 AM EDT Long-term current use of benzodiazepine BI MAMMOGRAM SCREENING TOMOSYNTHESIS BILATERAL Routine 12/06/2024 Screening mammogram for breast cancer HM COLONOSCOPY Routine 07/19/2023 LIPID PANEL WITH REFLEX TO DIRECT LDL Routine 06/02/2023 11:15 AM EST Elevated blood-pressure reading without diagnosis of hypertension TIA (transient ischemic attack) ZZZ HISTORICAL HPV MRNA E6/E7 Routine 05/17/2018 9:40 AM EST from Last 3 Months or Most Recently Relevant to Health Maintenance Results * Hold Lavender - Possible Hematology (03/28/2025 3:05 PM EDT) Hold Lavender - Possible Hematololgy SEE NOTE [facility] Comment:Specimen will be hel d untested for 8 hours. Call Hematologyif testing is desired. 03/28/2025 3:05 PM EDT 03/28/2025 4:22 PM EDT us Brooks Smith MD HISTORICAL/NON ORDERABLE LABS Final Result [facility] [address] [place] [address] [phone] * Pap Smear (03/22/2025 12:12 PM EDT) Swab Cervical swab / Unknown 03/22/2025 12:12 PM EDT 03/25/2025 6:37 AM EDT Narrative [facility] - 03/28/2025 10:49 AM EDT ----- ------- Name: Gabrielle Street Age/Sex: 64/F : 1960 Unit#: [id number] Attend Dr: Re03/22/25 Status: PRE REF Location: HO.LN Disch: ----- ------- SPEC : [id number] RECD: 03/25/25 STATUS: CATRINA WANG NUM: [id number] SINGH: 03/22/25-2 [facility] [address]: Brooks Smith MD ENTERED: 03/25/25 SP TYPE: Pap Smr MARNIE DR: ORDERED: Pap Smear Interpretation Satisfactory for evaluation. Negative for intraepithelial lesion or malignancy. HPV High Risk: Negative HPV Genotyping 16: Negative HPV Genotyping 18: Negative Clinical Information LMP:Unk Previous PAP test:7+ years Other surgery: Other history: Material Received ThinPrep-Cervical ----- ------- Signed (signature on file) [facility] [place] ([facility]) 03/28/25 1049 ----- ------- END OF REPORT us Brooks Smith MD LAB CYTOLOGY ORDERABLES Final Result [facility] [address] [place] [address] [phone] * POCT YANIRA-14 Urine Drug Screen (03/18/2025 10:32 AM EDT) Only the most recent of2 resultswithin the time period is included. THC Negative Negative Cocaine Screen, Urine Negative Negative Opiate Screen, Urine Negative Negative Methamphetamine Screen Urine Negative Negative Amphetamine Screen, Urine Negative Negative Benzodiazepines Screen, Urine Positive Negative Barbiturate Screen, Urine Negative Negative Methadone Screen, Urine Negative Negative Buprenophine Screen, Urine Negative Negative TCA, Urine Negative Negative MDMA Urine Negative Negative ng/mL Oxycodone Screen, Urine Negative Negative Phencyclidine (PCP), Urine Negative Negative Propoxyphene, Urine Negative Negative Fentanyl, Urine Negative Negative Urine Urine specimen obtained by clean catch procedure / Unknown 03/18/2025 10:32 AM EDT Kierra Chance RN - 03/18/2025 10:32 AM EDT UTO[employer] cup Lot#[id number] Exp. 04/02/26 Internal Pass Control Brooks Smith MD POINT OF CARE TEST ENTER /EDIT ORDERABLES Final Result * BI Mammogram Screening Tomosynthesis Bilateral (12/06/2024) Anatomical Region Laterality Modality Breast Bilateral Mammography Brooks Smith MD IMG BI PROCEDURES Final Result * (ABNORMAL) Hm Colonoscopy (07/19/2023) Colonoscopy Abnormal(A ) Normal [facility] Comment:TA Brooks Smith MD HEALTH MAINTENANCE Edite d Result - Final [facility] [address] [place] [phone] * Lipid Panel with Reflex to Direct LDL (06/02/2023 11:15 AM EST) Triglycerides 80 <150 mg/dL [facility] Comment:Desirable Triglyceri de: less than 150 mg/dLBorderline High Triglyceride 150-199 mg/dLHigh Triglyceride: 200-499 mg/dLVery High Triglyceride: greater than or equal to 5OO mg/dL Cholesterol 149 <200 mg/dL [facility] Comment:Desirable Cholestero l: less than 200 mg/dLBorderline High Cholesterol: 200-239 mg/dLHigh Cholesterol: greater than 239 mg/dL LDL Cholesterol Calculated 76 <100 mg/dL [facility] Comment:Desirable LDL: less than 100 mg/dLNear Optimal/Above Optimal LDL: 110- 129 mg/dLBorderline High LDL: 130-159 mg/dLHigh LDL: 160-189 mg/dLVery High LDL: greater than or equal to 190 mg/dL HDL Cholesterol 57 >40 mg/dL [facility] Comment:Desirable HDL: great er than 40 mg/dL Note: This HDL assay may give artificially low results in patients with liver disease. Blood 06/02/2023 11:1 5 AM EST 06/02/2023 1:19 PM EST us Brooks Smith MD LAB BLOOD ORDERABLES Fin al Result [facility] [address] [place] [address] [phone] * HPV mRNA E6/E7 (05/17/2018 9:40 AM EST) HPV mRNA E6/E7 Not Detected NOT DETECTED [facility] Comment: This test was performed using the APTIMA(R) HPV Assay ([employer] This assay detects E6/E7 viral messenger RNA (mRNA) from 14 high-risk HPV types (16,18,31,33,35,39,45,51, 52,56,58,59,66,68). For additional information please refer to: http://education.Podotree/faq/IPX350m8 (This link is being provided for informational/ educational purposes only.) The analytical performance characteristics of this assay have been determined by [employer] [place], [place]. The modifications have not been cleared or approved by the FDA. This assay has been validated pursuant to the CLIA regulations and is used for clinical purposes. Test Performed by [facility], [employer] [facility], [address] [place] [address] Kraig Gonzalez M.D., Ph.D., Director of Laboratories , CLIA [id number] Please note: Effective 03/08/2016, HPV testing will be performed using [employer]'s APTIMA test which targets mRNA. Detecting mRNA instead of DNA, as in older methods, offers significant improvements in specificity. 05/17/2018 9:40 AM EST us Elsa Conner CNM HISTORICAL/NON ORDERABLE LABS Final Result Performing Organization Address City/[facility]/ZIP Co de Phone Number [facility] [address] from Last 3 Months or Most Recently Relevant to Health Maintenance Insurance [facility] STANDARD MEDICARE Care Teams Buckle Coverer Relationship Specialty Start Date End Date Brooks Smith MD [address] [place] [address] PCP - General Family Medicine 06/11/19 Benjie Pineda FNP [address] [place] [address] Nurse Practitioner Family Medicine 05/23/23 [facility] 08/28/24 elara 11/23/24
[2025-03-28 16:30] LABS: Hematocrit 34.4 % (37.0-47.0); Hemoglobin 11.6 g/dl (12.0-16.0); Imm Gran Abs Auto 0.01 X10*3/uL (0.00-0.03); Imm Gran Pct Auto 0.2 % (0.0-0.4); Lymphocytes Absolute Auto 1.3 X10*3/uL (1.2-4.9); Mean Corpuscular HGB Conc 33.7 g/dl (31.0-35.0); Mean Corpuscular Hemoglobin 26.2 pg (27.0-33.0); Mean Corpuscular Volume 77.7 fL (80.0-98.0); NRBC Abs Auto 0.000 X10*3/uL (0.0-0.012); NRBC Pct Auto 0.0 /100WBC (0.0-0.2); Platelet Count 206 X10*3/uL (160-400); Red Blood Count 4.43 X10*6/uL (4.20-5.50); White Blood Count 6.0 X10*3/uL (4.8-10.8)
[2025-03-28 16:47] LABS: Alanine Aminotransferase 24 U/L (0-31); Albumin Level 4.5 g/dL (3.5-5.0); Alkaline Phosphatase 134 U/L (39-117); Anion Gap 9 (12-20); Aspartate Amino Transferase 25 U/L (5-31); Blood Urea Nitrogen 13 mg/dL (9-16); Calcium 9.2 mg/dL (8.4-10.2); Carbon Dioxide 30 mmol/L (22-29); Chloride 108 mmol/L (96-108); Cholesterol 136 mg/dL (<200); Estimated Glomerular Filt Rate 57; HDL Cholesterol 53 mg/dL (>40); Potassium 4.1 mmol/L (3.3-5.1); Sodium 143 mmol/L (135-145); Total Protein 7.3 g/dL (6.5-8.0); Triglycerides 91 mg/dL (<150)
[2025-03-28 16:54] LABS: Anion Gap 8 (12-20); Blood Urea Nitrogen 14 mg/dL (9-16); Carbon Dioxide 31 mmol/L (22-29); Chloride 108 mmol/L (96-108); Estimated Glomerular Filt Rate 55; Potassium 4.2 mmol/L (3.3-5.1); Sodium 143 mmol/L (135-145)
[2025-03-28 17:02] LABS: Total Protein Urine Random < 7 mg/dL (<12)
[2025-03-28 17:05] LABS: Free T4 (Free Thyroxine) 0.97 ng/dL (0.71-1.85); Thyroid Stimulating Hormone 1.35 uIU/mL (0.32-4.0)
== END 2025-03-28 14:59 | disposition home or self-care (01) ==
LOC: HO.HHCL 14:58
PROVIDERS: Internal Medicine Nephrology; PCP Internal Medicine; Visit Provider Registered Nurse Psychiatric/Mental Health
DX: I12.9 Hypertensive chronic kidney disease with stage 1 through stage 4 chronic kidney disease, or unspecified chronic kidney disease (principal); N18.31 Chronic kidney disease, stage 3a; N17.9 Acute kidney failure, unspecified; Z79.899 Other long term (current) drug therapy
CPT/HCPCS: 36415; 80051; 80053; 80061; 82248; 82565; 82570; 84156; 84439; 84443; 84520; 85025

== ENCOUNTER 2025-04-24 10:27 | Outpatient (AMB) | payer MEDICARE, MEDICAID, SELFPAY ==
--- OUTSIDE RECORDS SUMMARY | 2019-01-11 05:57 | XMS_ITS | Continuity of Care Document ---
Demographics Address [address] [place] [address] Mobile Phone Home Phone Preferred Language es Marital Status Legally Jew Affiliation Mandaen (non-Cat holic, non-specific) Race White Ethnic Group or Author Organization [facility] Address [address] [address] Phone Care Team Providers Care Supervisor Case Loading Name Role Phone Calin Dye DO Unavailable Unavailable Advance Directives Directive Yes / No Effective Date File Name No Information Encounters Encounter Description Practice Location Reason(s) For Visit Diagnoses Date Provider [facility], [address] [place] [address], [id number], [place] tel:[phone] [address] [place] [address] No Information 2018 Hardik Layton. [address] [place] [address], [id number], [place]. tel:[phone] Family History Family Member Type Diagnosis Age At Onset No Information Payers Payer name Insurance type Covered alliance party ID Authoriza tion(s) No Information Social History Type Description Quantity Date Captured Comments Sex Female Smoking Status No Information Chief Complaint And Reason For Visit No Information History Of Present Illness Encounter Date Complaint History Of Prese nt Illness No Information Instructions Date Instruction Additional Infor mation No Information Assessments Type Assessment Date No Information
--- NOTE | 2025-04-24 10:30 | A.OFFVIS_ITS ---
Vital Signs 04/24/25 10:31 Height 5 ft Weight 183 lb BMI 35.7 BP 122/77 Blood Pressure Location Rt brachial Position Sitting Pulse 75 Pulse Source Pulse Oximeter Pulse Oximetry (%) 98 Oxygen Delivery Method Room Air Intake Visit Reasons: asthma Allergies No Known Allergies (No Known Allergies*) Allergy (Verified 04/24/25 10:39) HPI HPI asthma: Details: 64-year-old lady, former 60 pack year smoker, quit 2008, with underlying history of diastolic heart failure, prior normal sleep study, now followed for nocturnal hypoxemia and COPD.? She has been using Anoro and albuterol MDI with reasonable control of her symptoms. However, her orthopnea and dyspnea on exertion symptoms are no longer well controlled on her current regimen of Bumex 1 mg daily. [facility], [facility] Medical History Chronic constipation History of colon polyps Internal hemorrhoids CVA (cerebral vascular accident) Abdominal pain Barretts esophagus Acid reflux Dyspnea Depression Anxiety Hypertension COPD (chronic obstructive pulmonary disease) Surgical History Hx of colonoscopy History of esophagogastroduodenoscopy (EGD) H/O section History of appendectomy History of cholecystectomy Family History Mother Cancer Maternal Grandmother Cancer Social History Household Members: None Alcohol intake: never Patient Tobacco Use Status: Never used Tobacco Current occupational status: disabled Review of Systems Const Denies daytime sleepiness, Denies excessive sweating, Denies fatigue, Denies fever(s), Denies lethargy, Denies malaise, Denies night sweats, Denies snoring and Denies weight loss Eyes Denies blurry vision and Denies itchy eyes ENT Denies nasal congestion, Denies post nasal drip, Denies sinus pain, Denies sinus pressure and Denies other ( Thrush) Card Denies chest pain, Reports pedal edema, Denies dyspnea, Reports dyspnea on exertion, Reports orthopnea and Denies paroxysmal nocturnal dyspnea Resp Denies cough, Denies hemoptysis, Denies excessive phlegm production, Denies dyspnea, Reports dyspnea on exertion, Denies snoring and Denies wheezing GI Denies abdominal pain and Denies heartburn Musc Denies myalgias, Denies arthralgias and Denies joint swelling Skin/Breast Denies rash Neuro Denies memory loss and Denies seizure-like activity Psych Denies abnormal sleep pattern, Denies anxiety and Denies memory loss Endo Denies excessive sweating, Denies fatigue and Denies heat intolerance Zhen/Lymph Denies easy bruising Aller/Immun Denies itchy eyes, Denies seasonal rhinorrhea and Denies wheezing Physical Exam Vital Signs: Last Vital Signs Pulse 75 04/24/25 10:31 BP 122/77 04/24/25 10:31 Pulse Ox 98 04/24/25 10:31 Oxygen Delivery Method Room Air 04/24/25 10:31 BMI result Body Mass Index 35.7 Const General: no acute distress and alert Nutritional Appearance: not obese Orientation/consciousness: Other orientation findings ( oriented) HEENT Head: Yes atraumatic Eyes General: appearance normal, both eyes and all related structures Sclerae: sclerae normal EOM: EOMs intact bilaterally Neck Neck: Yes supple Lymphatic: no lymphadenopathy noted Resp Effort & Inspection: normal respiratory effort and no use of accessory muscles Auscultation: clear to auscultation bilaterally Cardio Rate: regular rate Rhythm: regular rhythm Heart sounds: no gallops, no murmurs and no rubs Skin General skin exam: other ( warm) Extrem General: No clubbing, No cyanosis and Yes edema (1+ bilateral) Assessment & Plan Assessment & Plan (1) COPD (chronic obstructive pulmonary disease): Code(s): J44.9 - Chronic obstructive pulmonary disease, unspecified Category: Medical Plan: Well controlled on current regimen of Anoro and albuterol MDI. Continue current regimen. (2) Dyspnea on exertion: Code(s): R06.09 - Other forms of dyspnea Category: Medical Plan: Now with slowly worsening orthopnea, paroxysmal nocturnal dyspnea, and dyspnea on exertion suboptimally controlled on bumetanide 1 mg daily. Will add metolazone 5 mg 3 times a week. Medications: New metolazone 5 mg PO .Tuesday 14 tabs 6RF Coding Level of Care Code Est Pt Level 4 (07298) Diagnoses COPD (chronic obstructive pulmonary disease) J44.9 Dyspnea on exertion R06.09
[2025-04-24 10:31] VITALS: BP 122/77; PULSE 75; O2SAT 98; BMI 35.7
--- OUTSIDE RECORDS SUMMARY | 2025-04-24 12:58 | XMS_ITS | Encounter Summary ---
Author Organization [employer] Address [address] [facility] [address]t [place] [address] Care Team Providers Care Printer Machine Name Role Phone Shannon Ordaz MD Primary Care Provider + Benjie Pineda Unavailable Unavailable Reason for Visit * Reason Onset Date Comments FYI 03/22/2024 Encounter Details Date Type Department Care Team ([facility] st Contact Info) Description 03/22/2024 Telephone [facility] MEDICINE [address] [place], [place] [phone] Shannon Ordaz MD [address] [place], [place] [phone] FYI Social History Tobacco Use Types Packs/Day [...] 8:53 AM EDT Tc from Al[facility] at [facility] calling to inform the provider attempted to start services on 03/22 however patient refused due to having a Cardiology appt will re attempt on 03/23 to start services documented in this encounter Plan of Treatment Upcoming Encounters Date Type Department Care Team (Late st Contact Info) Description 05/20/2025 10:30 AM EST Clinical Support [facility] MEDICINE [address] [place] [address] Kierra Carbajal, ESTELLE 07/12/2025 2:00 PM EST Office Visit [facility] OPTOMETRY [address] [place] [address] Raina Hathaway, OD [address] [place] [address] documented as of this encounter Goals Goal Patient Goal Type Associated Problems Recent Progress Patient-Stated? Author Blood Pressure < 140/90 Blood Pressure 166/80(2024 12:02 PM EDT) No [employer]istas[employer] Meeta popsa, PharmD Record your blood pressure once per day Blood Pressure No [employer] Meeta popsa, PharmD Take your medication every day Lifestyle No Piers-Gambl Meeta popsa, PharmD documented as of this encounter Visit Diagnoses Not on filedocumented in this encounter Additional Health Concerns Assessment Noted Time PHQ-9 Depression Total Score: 2 11/15/19 24 11:12 AM EDT documented as of this encounter Care Teams Printer Machine Relationship Specialty Start Date End Date Shannon Ordaz MD [address] [place] [address] PCP - General Family Medicine 06/11/19 Benjie Pineda FNP [address] [place] [address] Nurse Practitioner Family Medicine 05/23/23 [facility] 04/25/24 05/03/24 [facility] 08/28/24 marco 11/23/24 documented as of this encounter
--- OUTSIDE RECORDS SUMMARY | 2025-04-24 12:58 | XMS_ITS | Encounter Summary ---
Author Organization [employer] Address [address] [facility] 7t [place] [address] Care Team Providers Care Leather Cleaner Name Role Phone Shannon Ordaz MD Primary Care Provider + Benjie Pineda Unavailable Unavailable Reason for Visit * Reason Onset Date Comments Hospital Follow-up 03/22/2024 Encounter Details Date Type Department Care Team ([facility] st Contact Info) Description 03/22/2024 Telephone [facility] MEDICINE [address] [place], [place] [phone] Shannon Ordaz MD [address] [place], [place] [phone] Hospital Follow-up Social History Tobacco Use Types [...] from pt requesting a HDF appt. Hospital: [facility] Date of admission: 03/17/24 Discharge date: 03/21/24 Diagnosed: diarrhea and rectal bleeding documented in this encounter Plan of Treatment Upcoming Encounters Date Type Department Care Team (Late st Contact Info) Description 05/20/2025 10:30 AM EST Clinical Support [facility] MEDICINE [address] [place] [address] Kierra Carbajal RN 07/12/2025 2:00 PM EST Office Visit [facility] OPTOMETRY [address] [place] [address] Raina Hathaway, OD [address] [place] [address] documented as of this encounter Goals Goal Patient Goal Type Associated Problems Recent Progress Patient-Stated? Author Blood Pressure < 140/90 Blood Pressure 166/80(2024 12:02 PM EDT) No Yanet Tse, PharmD Record your blood pressure once per day Blood Pressure No Yanet Tse, PharmD Take your medication every day Lifestyle No Yanet Tse, StaceyD documented as of this encounter Visit Diagnoses Not on filedocumented in this encounter Additional Health Concerns Assessment Noted Time PHQ-9 Depression Total Score: 2 11/15/19 24 11:12 AM EDT documented as of this encounter Care Teams Leather Cleaner Relationship Specialty Start Date End Date Shannon Ordaz MD [address] [place] [address] PCP - General Family Medicine 06/11/19 Benjie Pineda FNP [address] [place] [address] Nurse Practitioner Family Medicine 05/23/23 [facility] 04/25/24 05/03/24 [facility] 08/28/24 marco 11/23/24 documented as of this encounter
--- OUTSIDE RECORDS SUMMARY | 2025-04-24 12:58 | XMS_ITS | Encounter Summary ---
Author Organization [employer] Address 75 [facility] 7t [place] [address] Care Team Providers Care Machine Silk Screen Printer Name Role Phone Shannon Ordaz MD Primary Care Provider + Benjie Pineda Unavailable Unavailable Reason for Visit * Reason Comments Med Refill Encounter Details Date Type Department Care Team ([facility] st Contact Info) Description 02/20/[address] [facility] MED & PEDS [address] [place], [place] [phone] Shannon Ordaz MD [address] [place] [address] Major depressive disorder, recurrent episode with mood-congruent [...] Description 05/20/2025 10:30 AM EST Clinical [address] [facility] MEDICINE [address] [place] [address] Kierra Carbajal RN 07/12/2025 2:00 PM EST Office Visit [facility] OPTOMETRY [address] [place] [address] Raina Hathaway, OD 230 [place] [address] documented as of this encounter Goals Goal [...] documented as of this encounter Care Teams Machine Silk Screen Printer Relationship Specialty Start Date End Date Shannon Ordaz MD [address] [place] [address] PCP - General Family Medicine 06/11/19 Benjie Pineda FNP [address] [place] [address] Nurse Practitioner Family Medicine 05/23/23 [facility] 08/28/24 marco 11/23/24 documented as of this encounter
--- OUTSIDE RECORDS SUMMARY | 2025-04-24 12:58 | XMS_ITS | Encounter Summary ---
Author Organization [employer] Address 75 [facility] 7t [place] [address] Care Team Providers Care Audio Production Engineer Name Role Phone Shannon Ordaz MD Primary Care Provider + Benjie Pineda Unavailable Unavailable Reason for Visit * Reason Comments Med Refill Encounter Details Date Type Department Care Team ([facility] st Contact Info) Description 04/13/2025 Refill [facility] MEDICINE [address] [place], [place] [phone] Shannon Ordaz MD [address] [place], [place] [phone] Social History Tobacco Use Types Packs/Day Years [...] Clinical Support [facility] MEDICINE [address] [place] [address] Kierra Carbajal RN 07/12/2025 2:00 PM EST Office Visit [facility] OPTOMETRY [address] [place] [address] Raina Hathaway, MCKAYLA [address] [place] [address] documented as of this encounter Goals Goal [...] documented as of this encounter Care Teams Audio Production Engineer Relationship Specialty Start Date End Date Shannon Ordaz MD [address] [place] [address] PCP - General Family Medicine 06/11/19 Benjie Pineda FNP [facility] [address] Nurse Practitioner Family Medicine 05/23/23 [facility] 08/28/24 elara 11/23/24 documented as of this encounter
--- OUTSIDE RECORDS SUMMARY | 2025-04-24 12:58 | XMS_ITS | Encounter Summary ---
Author Organization [employer] Address 75 [facility] 7t [place] [address] Care Team Providers Care Entry Level Business Analyst Name Role Phone Shannon Ordaz MD Primary Care Provider + Benjie Pineda Unavailable Unavailable Reason for Visit * Reason Comments Med Refill Encounter Details Date Type Department Care Team ([facility] st Contact Info) Description 01/07/2025 Refill [facility] MEDICINE [address] [place], [place] [phone] Shannon Ordaz MD [address] [place], [place] [phone] Mixed hyperlipidemia; Anxiety and depression Social History [...] Description 05/20/2025 10:30 AM EST Clinical Support [facility] MEDICINE [address] [place] [address] Kierra Carbajal RN 07/12/2025 2:00 PM EST Office Visit [facility] OPTOMETRY [address] [place] [address] Raina Hathaway, OD 230 [place] [address] documented as of this encounter Goals Goal [...] of this encounter Care Teams Entry Level Business Analyst Relationship Specialty Start Date End Date Shannon Ordaz MD [address] [place] [address] PCP - General Family Medicine 06/11/19 Benjie Pineda FNP [address] [place] [address] Nurse Practitioner Family Medicine 05/23/23 [facility] 08/28/24 elara 11/23/24 documented as of this encounter
--- OUTSIDE RECORDS SUMMARY | 2025-04-24 12:58 | XMS_ITS | Encounter Summary ---
Author Organization [employer] Address 75 [facility] 7t [place] [address] Care Team Providers Care Water Conservation Specialist Name Role Phone Shannon Ordaz MD Primary Care Provider + Benjie Pineda Unavailable Unavailable Reason for Visit * Reason Comments Med Refill Encounter Details Date Type Department Care Team ([facility] st Contact Info) Description 08/30/2023 Refill [facility] CHC MED & PEDS [address] [place], [place] [phone] Shannon Ordaz MD 230 [place] [address] Social History Tobacco Use Types Packs/Day Years [...] Description 05/20/2025 10:30 AM EST Clinical Support [facility] MEDICINE 230 [place] [address] Kierra Carbajal RN 07/12/2025 2:00 PM EST Office Visit [facility] OPTOMETRY [address] [place] [address] Rivas, Raina, OD 230 [place] [address] documented as of this encounter Visit Diagnoses Not on filedocumented in this encounter Additional Health Concerns Assessment Noted Time PHQ-9 Depression Total Score: 2 08/02/19 24 9:41 AM EST documented as of this encounter Care Teams Water Conservation Specialist Relationship Specialty Start Date End Date Shannon Ordaz MD [address] [place] [address] PCP - General Family Medicine 06/11/19 Benjie Pineda FNP [address] [place] [address] Nurse Practitioner Family Medicine 05/23/23 [facility] 04/25/24 05/03/24 [facility] 08/28/24 marco 11/23/24 documented as of this encounter
--- OUTSIDE RECORDS SUMMARY | 2025-04-24 12:58 | XMS_ITS | Encounter Summary ---
Author Organization [employer] Address 75 [facility] 7t [place] [address] Care Team Providers Care Salesforce Business Analyst Name Role Phone Shannon Ordaz MD Primary Care Provider + Benjie Pineda Unavailable Unavailable Encounter Details Date Type Department Care Team (Late st Contact Info) Description 11/23/2023 Orders Only [facility] MEDICINE [address] [place] [address] Provider, MD Yarelis Social History Tobacco Use [...] Description 05/20/2025 10:30 AM EST Clinical Support [facility] MEDICINE [address] [place] [address] Kierra Carbajal RN 07/12/2025 2:00 PM EST Office Visit [facility] OPTOMETRY [address] [place] [address] Raina Hathaway, OD [address] [place] [address] documented as of this encounter Procedures Procedure [...] documented as of this encounter Care Teams Salesforce Business Analyst Relationship Specialty Start Date End Date Shannon Ordaz MD 230 [place] [address] PCP - General Family Medicine 06/11/19 Benjie Pineda FNP [address] [place] [address] Nurse Practitioner Family Medicine 05/23/23 [facility] 04/25/24 05/03/24 [facility] 08/28/24 marco 11/23/24 documented as of this encounter
--- OUTSIDE RECORDS SUMMARY | 2025-04-24 12:58 | XMS_ITS | Encounter Summary ---
Author Organization [employer] Address 75 [facility] 7t [place] [address] Care Team Providers Care Seo Executive Name Role Phone Shannon Ordaz MD Primary Care Provider + Benjie Pineda Unavailable Unavailable Reason for Visit * Reason Onset Date Comments Med Refill 04/16/2025 Encounter Details Date Type Department Care Team (Late st Contact Info) Description 04/16/2025 Refill [facility] MEDICINE 230 [place], [place] [phone] Shannon Ordaz MD [address] [place], [place] [phone] Major depressive disorder, recurrent episode with mood-congruent psychotic features (CMS/HCC) (HCC) Social History Tobacco Use Types Packs/Day Years [...] Description 05/20/2025 10:30 AM EST Clinical Support [facility] MEDICINE [address] [place] [address] Kierra Carbajal RN 07/12/2025 2:00 PM EST Office Visit [facility] OPTOMETRY [address] [place] [address] Raina Hathaway, OD [address] [place] [address] documented as of this encounter Goals Goal [...] documented as of this encounter Care Teams Seo Executive Relationship Specialty Start Date End Date Shannon Ordaz MD [address] [place] [address] PCP - General Family Medicine 06/11/19 Benjie Pineda FNP [address] [place] [address] Nurse Practitioner Family Medicine 05/23/23 [facility] 08/28/24 elara 11/23/24 documented as of this encounter
--- OUTSIDE RECORDS SUMMARY | 2025-04-24 12:58 | XMS_ITS | Encounter Summary ---
Author Organization [employer] Address 75 [facility] 7t [place] [address] Care Team Providers Care Credit Reporting Clerk Name Role Phone Shannon Ordaz MD Primary Care Provider + Benjie Pineda Unavailable Unavailable Reason for Visit * Reason Onset Date Comments Med Refill 02/21/2025 Encounter Details Date Type Department Care Team (Late st Contact Info) Description 02/21/2025 Refill [facility] MEDICINE [address] [place], [place] [phone] Shannon Ordaz MD [address] [place], [place] [phone] Major depressive disorder, recurrent episode with mood-congruent [...] Description 05/20/2025 10:30 AM EST Clinical Support [facility] MEDICINE [address] [place] [address] Kierra Carbajal RN 07/12/2025 2:00 PM EST Office Visit [facility] OPTOMETRY [address] [place] [address] Rivas, Raina, OD 230 [place] [address] documented as of this encounter Goals Goal [...] documented as of this encounter Care Teams Credit Reporting Clerk Relationship Specialty Start Date End Date Shannon Ordaz MD [address] [place] [address] PCP - General Family Medicine 06/11/19 Benjie Pineda FNP [address] [place] [address] Nurse Practitioner Family Medicine 05/23/23 [facility] 08/28/24 elara 11/23/24 documented as of this encounter
--- OUTSIDE RECORDS SUMMARY | 2025-04-24 12:58 | XMS_ITS | Encounter Summary ---
Author Organization [employer] Address 75 [facility] 7t [place] [address] Care Team Providers Care Field Services Analyst Name Role Phone Shannon Ordaz MD Primary Care Provider + Benjie Pineda Unavailable Unavailable Encounter Details Date Type Department Care Team (Late st Contact Info) Description 07/21/2023 Abstract [facility] MEDICINE [address] [place], [place] [phone] Shannon Ordaz MD [address] [place], [place] [phone] Social History Tobacco Use Types Packs/Day Years [...] Description 05/20/2025 10:30 AM EST Clinical Support [facility] MEDICINE [address] [place] [address] Kierra Carbajal RN 07/12/2025 2:00 PM EST Office Visit [facility] OPTOMETRY [address] [place] [address] RivasRaina gómez, OD 230 [place] [address] documented as of this encounter Procedures Procedure Name Priority Date/Time Associated Diagnosis Comments COLONOSCOPY Routine 07/19/2023 documented in this encounter Results * (ABNORMAL) Colonoscopy (07/19/2023) Colonoscopy Abnormal(A ) Normal [facility] Comment:TA us Shannon Ordaz MD HEALTH MAINTENANCE Edite d Result - Final [facility] [address] [place] [address] [phone] documented in this encounter Visit Diagnoses Not on filedocumented in this encounter Additional Health Concerns Assessment Noted Time PHQ-9 Depression Total Score: 3 05/31/20 10:47 AM EST documented as of this encounter Care Teams Field Services Analyst Relationship Specialty Start Date End Date Shannon Ordaz MD [address] [place] [address] PCP - General Family Medicine 06/11/19 Benjie Pineda FNP [address] [place] [address] Nurse Practitioner Family Medicine 05/23/23 [facility] 04/25/24 05/03/24 [facility] 08/28/24 marco 11/23/24 documented as of this encounter
--- OUTSIDE RECORDS SUMMARY | 2025-04-24 12:58 | XMS_ITS | Encounter Summary ---
Author Organization [email or web address] Address [address] [place] [address] 7t [place] [address] Care Team Providers Care Design Checker Name Role Phone Shannon Ordaz MD Primary Care Provider + Benjie Pineda Unavailable Unavailable Reason for Visit * Reason Onset Date Comments Referral 08/26/2022 Encounter Details Date Type Department Care Team (Late st Contact Info) Description 08/26/2022 Telephone [facility] MEDICINE 230 [place], [place] [phone] Shannon Ordaz MD 230 [place], [place] [phone] Referral Social History Tobacco Use Types Packs/Day [...] 3:08 PM EST TC returned to pt [phone] to inform pt provider has placed PT referral today. Pt verbalized understanding. RN will send message to orientation & mobility specialist to ensure referral gets processed as pt's appt is on 09/03/22. * Telephone Encounter - Alta Daniel - 08/30/2022 12:03 PM EST Tc from pt checking status on physical therapy referral . * Telephone Encounter - Gumaro Storm - 08/26/2022 4:28 PM EST Tc from pt returning call regarding missing information she didn't have for the referral needed forphysical therapy. Location: [place] [address] Phone #: [phone] Please contact pt at [phone] documented in this encounter Plan of Treatment Upcoming Encounters Date Type Department Care Team (Late st Contact Info) Description 05/20/2025 10:30 AM EST Clinical Support [facility] MEDICINE [address] [place] [address] Kierra Carbajal RN 07/12/2025 2:00 PM EST Office Visit [facility] OPTOMETRY [address] [place] [address] Rivas, Raina, OD [address] [place] [address] documented as of this encounter Visit Diagnoses Not on filedocumented in this encounter Additional Health Concerns Assessment Noted Time PHQ-9 Depression Total Score: 9 08/19/19 23 11:05 AM EST documented as of this encounter Care Teams Design Checker Relationship Specialty Start Date End Date Shannon Ordaz MD [address] [place] [address] PCP - General Family Medicine 06/11/19 Benjie Pineda FNP [address] [place] [address] Nurse Practitioner Family Medicine 05/23/23 [facility] 04/25/24 05/03/24 [facility] 08/28/24 marco 11/23/24 documented as of this encounter
--- OUTSIDE RECORDS SUMMARY | 2025-04-24 12:58 | XMS_ITS | Encounter Summary ---
Author Organization [employer] Address 75 [facility] 7t [place] [address] Care Team Providers Care Opera Singer Name Role Phone Shannon Ordaz MD Primary Care Provider + Benjie Pineda Unavailable Unavailable Reason for Visit * Reason Onset Date Comments Medication Question 11/16/2022 Encounter Details Date Type Department Care Team ([facility] st Contact Info) Description 11/16/2022 Telephone [facility] MEDICINE 230 [place], [place] [phone] Shannon Ordaz MD 230 [place], [place] [phone] Medication Question Social History Tobacco Use Types [...] were discussed however meditech reviewed and pt.'s lathe operator prescribes them. * Telephone Encounter - Alta [...] 10:30 AM EST Clinical Support [facility] MEDICINE [address] [place] [address] Kierra Carbajal RN 07/12/2025 2:00 PM EST Office Visit [facility] OPTOMETRY [address] [place] [address] Rivas, Raina, OD [address] [place] [address] documented as of this encounter Visit Diagnoses Not on filedocumented in this encounter Additional Health Concerns Assessment Noted Time PHQ-9 Depression Total Score: 12 023 11:08 AM EDT documented as of this encounter Care Teams Opera Singer Relationship Specialty Start Date End Date Shannon Ordaz MD [address] [place] [address] PCP - General Family Medicine 06/11/19 Benjie Pineda FNP [address] [place] [address] Nurse Practitioner Family Medicine 05/23/23 [facility] 04/25/24 05/03/24 [facility] 08/28/24 marco 11/23/24 documented as of this encounter
--- OUTSIDE RECORDS SUMMARY | 2025-04-24 12:58 | XMS_ITS | Encounter Summary ---
Author Organization [employer] Address [address] [place] [address] 7t [place] [address] Care Team Providers Care Dumb Waiter Operator Name Role Phone Shannon Ordaz MD Primary Care Provider + Benjie Pineda Unavailable Unavailable Reason for Visit * Reason Onset Date Comments Appointment Request 08/26/2022 Encounter Details Date Type Department Care Team (Late st Contact Info) Description 08/26/[address] [phone] Shannon Ordaz MD [address] [place] [address] [phone] Appointment Request Social History Tobacco Use Types [...] labs/htn RCL ) Please contact pt at [phone] documented in this encounter Plan of Treatment Upcoming Encounters Date Type Department Care Team (Late st Contact Info) Description 05/20/2025 10:30 AM EST Clinical Support [facility] MEDICINE [address] [place] [address] Kierra Carbajal, ESTELLE 07/12/2025 2:00 PM EST Office Visit [facility] OPTOMETRY [address] [place] [address] Raina Hathaway, OD [address] [place] [address] documented as of this encounter Visit Diagnoses Not on filedocumented in this encounter Additional Health Concerns Assessment Noted Time PHQ-9 Depression Total Score: 9 08/19/19 23 11:05 AM EST documented as of this encounter Care Teams Dumb Waiter Operator Relationship Specialty Start Date End Date Shannon Ordaz MD [address] [place] [address] PCP - General Family Medicine 06/11/19 Benjie Pineda FNP [address] [place] [address] Nurse Practitioner Family Medicine 05/23/23 [facility] 04/25/24 05/03/24 [facility] 08/28/24 marco 11/23/24 documented as of this encounter
--- OUTSIDE RECORDS SUMMARY | 2025-04-24 12:58 | XMS_ITS | Encounter Summary ---
Author Organization [employer] Address 75 [facility] 7t [place] [address] Care Team Providers Care Mail Caller Name Role Phone Shannon Ordaz MD Primary Care Provider + Benjie Pineda Unavailable Unavailable Encounter Details Date Type Department Care Team (Late Contact Info) Description 08/30/2022 Orders Only [facility] MEDICINE 230 [place], [place] [phone] Radha Hubbard MD [address] [place] [address] Neuropathy involving both lower extremities (Primary Dx) [...] Description 05/20/2025 10:30 AM EST Clinical Support [facility] MEDICINE [address] [place] [address] Kierra Carbajal RN 07/12/2025 2:00 PM EST Office Visit [facility] OPTOMETRY [address] [place] [address] Raina Hathaway, OD [address] [place] [address] documented as of this encounter Visit Diagnoses Diagnosis Neuropathy involving both lower extremities- Primary documented in this encounter Additional Health Concerns Assessment Noted Time PHQ-9 Depression Total Score: 9 08/19/19 23 11:05 AM EST documented as of this encounter Care Teams Mail Caller Relationship Specialty Start Date End Date Shannon Ordaz MD [address] [place] [address] PCP - General Family Medicine 06/11/19 Benjie Pineda FNP [address] [place] [address] Nurse Practitioner Family Medicine 05/23/23 [facility] 04/25/24 05/03/24 [facility] 08/28/24 marco 11/23/24 documented as of this encounter
--- OUTSIDE RECORDS SUMMARY | 2025-04-24 12:58 | XMS_ITS | Encounter Summary ---
Author Organization [employer] Address 75 [facility] 7t [place] [address] Care Team Providers Care Agronomy Technician Name Role Phone Shannon Ordaz MD Primary Care Provider + Benjie Pineda Unavailable Unavailable Reason for Visit * Reason Comments Med Refill Encounter Details Date Type Department Care Team ([facility] st Contact Info) Description 02/13/2025 Refill [facility] CHC MED & PEDS [address] [place], [place] [phone] Shannon Ordaz MD [address] [place] [address] Major depressive disorder, recurrent episode with mood-congruent [...] 05/20/2025 10:30 AM EST Clinical Support [facility] MEDICINE [address] [place] [address] Kierra Carbajal RN 07/12/2025 2:00 PM EST Office Visit [facility] OPTOMETRY [address] [place] [address] Raina Hathaway, OD [address] [place] [address] documented as of this encounter Goals Goal [...] documented as of this encounter Care Teams Agronomy Technician Relationship Specialty Start Date End Date Shannon Ordaz MD [address] [place] [address] PCP - General Family Medicine 06/11/19 Benjie Pineda FNP [address] [place] [address] Nurse Practitioner Family Medicine 05/23/23 [facility] 08/28/24 marco 11/23/24 documented as of this encounter
--- OUTSIDE RECORDS SUMMARY | 2025-04-24 12:59 | XMS_ITS | Encounter Summary ---
Author Organization [employer] Address 75 [facility] 7t [place] [address] Care Team Providers Care Women Designer Name Role Phone Shannon Ordaz MD Primary Care Provider + Benjie Pineda Unavailable Unavailable Reason for Visit * Reason Comments Med Refill Encounter Details Date Type Department Care Team ([facility] st Contact Info) Description 12/10/2024 Refill [facility] MEDICINE 230 [place], [place] [phone] Shannon Ordaz MD [address] [place], [place] [phone] Major depressive disorder, recurrent episode with mood-congruent [...] Description 05/20/2025 10:30 AM EST Clinical Support [facility] MEDICINE [address] [place] [address] Kierra Carbajal, ESTELLE 07/12/2025 2:00 PM EST Office Visit [facility] OPTOMETRY [address] [place] [address] Raina Hathaway, OD [address] [place] [address] documented as of this encounter Goals Goal [...] documented as of this encounter Care Teams Women Designer Relationship Specialty Start Date End Date Shannon Ordaz MD [address] [place] [address] PCP - General Family Medicine 06/11/19 Benjie Pineda FNP [address] [place] [address] Nurse Practitioner Family Medicine 05/23/23 [facility] 08/28/24 khaiara 11/23/24 documented as of this encounter
--- OUTSIDE RECORDS SUMMARY | 2025-04-24 12:59 | XMS_ITS | Encounter Summary ---
Author Organization [employer] Address [address] [facility] 7t [place] [address] Care Team Providers Care Runstitching Machine Operator Name Role Phone Shannon Ordaz MD Primary Care Provider + Benjie Pineda Unavailable Unavailable Reason for Visit * Reason Comments Med Refill Encounter Details Date Type Department Care Team ([facility] st Contact Info) Description 10/16/2024 Refill [facility] MEDICINE [address] [place], [place] [phone] Shannon Ordaz MD 230 [place], [place] [phone] Major depressive disorder, recurrent episode with mood-congruent [...] Description 05/20/2025 10:30 AM EST Clinical Support [facility] MEDICINE [address] [place] [address] Kierra Carbajal, ESTELLE 07/12/2025 2:00 PM EST Office Visit [facility] OPTOMETRY [address] [place] [address] Raina Hathaway, OD 230 [place] [address] documented as of this encounter Goals Goal [...] documented as of this encounter Care Teams Runstitching Machine Operator Relationship Specialty Start Date End Date Shannon Ordaz MD [address] [place] [address] PCP - General Family Medicine 06/11/19 Benjie Pineda FNP [address] [place] [address] Nurse Practitioner Family Medicine 05/23/23 [facility] 08/28/24 khaiara 11/23/24 documented as of this encounter
--- OUTSIDE RECORDS SUMMARY | 2025-04-24 12:59 | XMS_ITS | Encounter Summary ---
Author Organization [employer] Address [address] [place] [address] 7t [place] [address] Care Team Providers Care Sr. Logistics Analyst Name Role Phone Shannon Ordaz MD Primary Care Provider + Benjie Pineda Unavailable Unavailable Reason for Visit * Reason Comments Med Refill Encounter Details Date Type Department Care Team (Late st Contact Info) Description 07/26/2022 Refill [facility] [address] [place] [address] Benjie Pineda FNP Major depressive disorder, recurrent [...] Description 05/20/2025 10:30 AM EST Clinical Support [facility] [address] [place] [address] Kierra Carbajal RN 07/12/2025 2:00 PM EST Office Visit [facility] [address] [place], [place] [phone] Raina Hathaway, OD [address] [place] [address] documented as of this encounter Visit Diagnoses Diagnosis Major depressive disorder, 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 Logistics Analyst Relationship Specialty Start Date End Date Shannon Ordaz MD [address] [place] [address] PCP - General Family Medicine 06/11/19 Benjie Pineda FNP [address] [place] [address] Nurse Practitioner Family Medicine 05/23/23 [facility] 04/25/24 05/03/24 [facility] 08/28/24 marco 11/23/24 documented as of this encounter
--- OUTSIDE RECORDS SUMMARY | 2025-04-24 12:59 | XMS_ITS | Encounter Summary ---
Author Organization [employer] Address [address] [facility] 7t [place] [address] Care Team Providers Care Engineering Clerk Name Role Phone Shannon Ordaz MD Primary Care Provider + Benjie Pineda Unavailable Unavailable Encounter Details Date Type Department Care Team (Late st Contact Info) Description 09/07/2024 Telephone [facility] [address] [place], [place] [phone] Shannon Ordaz MD [address] [place], [place] [phone] Social History Tobacco Use Types Packs/Day Years [...] Description 05/20/2025 10:30 AM EST Clinical Support [facility] [address] [place] [address] Kierra Carbajal RN 07/12/2025 2:00 PM EST Office Visit [facility] [address] [place] [address] Rivas, Raina, OD [address] [place] [address] documented as of this encounter Goals Goal [...] documented as of this encounter Care Teams Engineering Clerk Relationship Specialty Start Date End Date Shannon Ordaz MD [address] [place] [address] PCP - General Family Medicine 06/11/19 Benjie Pineda FNP [address] [place] [id number] Nurse Practitioner Family Medicine 05/23/23 [facility] 08/28/24 marco 11/23/24 documented as of this encounter
--- OUTSIDE RECORDS SUMMARY | 2025-04-24 12:59 | XMS_ITS | Encounter Summary ---
Author Organization [employer] Address [address] [facility] 7t [place] [address] Care Team Providers Care Basketball Coach Name Role Phone Shannon Ordaz MD Primary Care Provider + Benjie Pineda Unavailable Unavailable Encounter Details Date Type Department Care Team (Late Contact Info) Description 03/01/2023 Abstract [facility] [address] [place] [address] [phone] Shannon Ordaz MD [address] [place], [place] [phone] Social History Tobacco Use Types Packs/Day Years [...] Department Care Team (Late Contact Info) Description 05/20/2025 10:30 AM EST Clinical Support [facility] [address] [place] [address] [phone] Kierra Carbajal RN 07/12/2025 2:00 PM EST Office Visit [facility] [address] [place], [place] [phone] Raina Hathaway, OD [address] [place], [place] [phone] documented as of this encounter Visit Diagnoses Not on filedocumented in this encounter Additional Health Concerns Assessment Noted Time PHQ-9 Depression Total Score: 8 02/02/20 23 11:15 AM EDT documented as of this encounter Care Teams Basketball Coach Relationship Specialty Start Date End Date Shannon Ordaz MD [address] [place] [address] PCP - General Family Medicine 06/11/19 Benjie Pineda FNP [address] [place] [address] Nurse Practitioner Family Medicine 05/23/23 [facility] 04/25/24 05/03/24 [facility] 08/28/24 marco 11/23/24 documented as of this encounter
--- OUTSIDE RECORDS SUMMARY | 2025-04-24 12:59 | XMS_ITS | Encounter Summary ---
Author Organization [employer] Address [address] [facility] 7t [place] [address] Care Team Providers Care Eco Industrial Development Consultant Name Role Phone Shannon Ordaz MD Primary Care Provider + Benjie Pineda Unavailable Unavailable Reason for Visit * Reason Onset Date Comments Pre-op Exam 06/21/2024 Encounter Details Date Type Department Care Team ([facility] st Contact Info) Description 06/21/2024 Telephone [facility] [address] [place], [place] [phone] Shannon Ordaz MD [address] [place], [place] [phone] Pre-op Exam Social History Tobacco Use Types [...] Melita Stevenson - 06/21/2024 9:57 AM EST Software Design Manager spoke with Melanie at [facility] and agreed to inform pt she is scheduled for pre op on 07/25/24 at 9AM with . Appointment reminder letter mailed Date of Surgery: 08/07/2024 and 08/23/2024 (right eye) Surgical procedure being done: Cataract Surgery Type of anesthesia: MAC Lab needed: No EKG: No Surgeon's name: Tino Falk Facility name: [facility] Surgeon's office number: [phone] Surgeon's office fax number: [phone] Contact name (person you spoke with): Melanie Last office note from surgeon requested: No * Telephone Encounter - Watson Abdi - 06/21/2024 9:08 AM EST Date of Surgery: 08/07/2024 and 08/23/2024 (right eye) Surgical procedure being done: Cataract Surgery Type of anesthesia: MAC Lab needed: No EKG: No Surgeon's name: Tino Falk Facility name: [facility] Surgeon's office number: [phone] Surgeon's office fax number: [phone] Contact name (person you spoke with): Melanie Last office note from surgeon requested: No Send Message to Melita Stevenson and Marc Apodaca documented in this encounter Plan of Treatment Upcoming Encounters Date Type Department Care Team (Late st Contact Info) Description 05/20/2025 10:30 AM EST Clinical Support [facility] [address] [place] [address] Kierra Carbajal, ESTELLE 07/12/2025 2:00 PM EST Office Visit [facility] [address] [place] [address] Raina Hathaway, OD [address] [place] [address] documented as of this encounter Goals Goal [...] documented as of this encounter Care Teams Eco Industrial Development Consultant Relationship Specialty Start Date End Date Shannon Ordaz MD [address] [place] [phone] PCP - General Family Medicine 06/11/19 Benjie Pineda FNP [address] [place] [address] Nurse Practitioner Family Medicine 05/23/23 [facility] 08/28/24 elara 11/23/24 documented as of this encounter
--- OUTSIDE RECORDS SUMMARY | 2025-04-24 12:59 | XMS_ITS | Encounter Summary ---
Author Organization [employer] Address [address] [place] [address] 7t [place] [address] Care Team Providers Care Skimmer Scoop Operator Name Role Phone Shannon Ordaz MD Primary Care Provider + Benjie Pineda Unavailable Unavailable Reason for Visit * Reason Comments Med Refill Encounter Details Date Type Department Care Team (Late st Contact Info) Description 06/29/2022 Refill [facility] [address] [place], [place] [phone] Benjie Pineda FNP Social History Tobacco Use [...] Description 05/20/2025 10:30 AM EST Clinical Support [facility] [address] [place], [place] [phone] Kierra Carbajal RN 07/12/2025 2:00 PM EST Office Visit [facility] [address] [place] [address] Raina Hathaway, OD [address] [place] [address] documented as of this encounter Visit Diagnoses Not on filedocumented in this encounter Care Teams Skimmer Scoop Operator Relationship Specialty Start Date End Date Shannon Ordaz MD [address] [place] [address] PCP - General Family Medicine 06/11/19 Benjie Pineda FNP [address] [place] [address] Nurse Practitioner Family Medicine 05/23/23 [facility] 04/25/24 05/03/24 [facility] 08/28/24 marco 11/23/24 documented as of this encounter
--- OUTSIDE RECORDS SUMMARY | 2025-04-24 12:59 | XMS_ITS | Clinical Summary ---
Author Organization [facility] Address [address] [place] [address] Phone Care Team Providers Care Branch Banker Name Role Phone Shannon Ordaz MD Primary Care Provider [phone] Allergies Active Allergy Reactions Criticality Noted Date [...] Date Diagnosed Date Resolved Date COPD exacerbation ([facility] V24, [facility] V28) 11/22/2024 ARF (acute renal failure) ([facility] V24) 08/22/2024 08/23/2024 Encounters Date Type Department Care Team Description 02/18/2025 11:34 AM EDT - 02/18/2025 12:38 PM EDT Emergency [facility] Emergency [address] [place] [phone] Damon Dugan MD Abscess (Primary Dx) Discharge Disposition: Home or Self Care from Last 3 Months Surgical History Surgery Date Site/Laterality Comments STEREOTACTIC CORE BIOPSY Left Medical History Medical History Date Comments Asthma COPD (chronic obstructive pulmonary disease) (CM S/HCC V24, [facility] V28) Depression Hypercholesteremia Hypertension Peripheral neuropathy GERD (gastroesophageal reflux disease) Glaucoma CVA (cerebral vascular accident) ([facility] V24, [facility] V28) Family History Medical History Relation Name [...] LEVEL 1 Routine 02/18/2025 12:20 PM EDT MO INCISION & DRAINAGE ABSCESS SIMPLE/SINGLE Routine 02/18/2025 12:20 PM EDT BASIC METABOLIC PANEL STAT 12/25/2024 8:27 AM EDT MG MAMMO DIGITAL SCREENING W MAXIMILIAN BILAT Routine 12/06/2024 3:00 PM EDT Encounter for screening mammogram for malignant neoplasm of breast from Last 3 Months or Most Recently Relevant to Health Maintenance Results * MO INCISION & DRAINAGE ABSCESS SIMPLE/SINGLE, HC I&D/EXCISION/BIOPSY [...] discussed: Bleeding, incomplete drainage, pain and infection [place] protocol: Procedure explained and questions answered to [...] LAB CHEMISTRY METHOD 12/25/2024 9:10 AM EDT [facility] Potassium 3.9 3.5 - 5.5 mmol/L LAB CHEMISTRY METHOD 12/25/2024 9:10 AM EDT [facility] Chloride 109 96 - 110 mmol/L LAB CHEMISTRY METHOD 12/25/2024 9:10 AM [facility] CO2 26 21 - 32 mmol/L LAB CHEMISTRY METHOD 12/25/2024 9:10 AM [facility] Anion Gap 7 3 - 11 LAB CHEMISTRY METHOD 12/25/2024 9:10 AM [facility] Glucose 102(H) 70 - 100 mg/dL LAB CHEMISTRY METHOD 12/25/2024 9:10 AM [facility] BUN 12 5 - 25 mg/dL LAB CHEMISTRY METHOD 12/25/2024 9:10 AM [facility] Creatinine 1.30(H) 0.50 - 1.10 mg/dL LAB CHEMISTRY METHOD 12/25/2024 9:10 AM [facility] eGFR 45(L) >=60 mL/min/1. 73m2 LAB CHEMISTRY METHOD 12/25/2024 9:10 AM [facility] Comment:Calculation based on the Chronic Kidney Disease Epidemiology Collaboration (CKD-EPI) equation refit without adjustment for race. BUN/Creatinine Ratio 9.2 LAB CHEMISTRY METHOD 12/25/2024 9:10 AM [facility] Calcium 8.5 8.5 - 10.5 mg/dL LAB CHEMISTRY METHOD 12/25/2024 9:10 AM [facility] Blood Venous blood specimen / Unknown Venipuncture / Unknown 12/25/2024 8:27 AM EDT 12/25/2024 8:42 AM EDT us Keon Nunes DO LAB BLOOD ORDERABLES Final Result [facility] [address] [place] [address], * MG Mammo Digital Screening w Maximilian [...] year. Mammography location: [facility] [address], [address] -------- FINAL REPORT -------- Dictated By: Otf Hoyos Dictated Date: 12/06/2024 16:51 ET Assigned Physician: Otf Hoyos Reviewed and Electronically Signed By: Otf Hoyos Signed Date: 12/06/2024 16:58 ET Workstation ID: [id number] Transcribed By: Self Edit Transcribed Date: 12/06/2024 16:51 ET Narrative 12/06/2024 4:58 PM EDT EXAM: SCREENING MAMMOGRAPHY, BILATERAL HISTORY: SCREENING. Family history of breast cancer, mother, maternal grandmother COMPARISON: None available TECHNIQUE: Synthesized CC and MLO projections of each breast. Tomosynthesis of each breast in the CC and MLO projections. ADDITIONAL IMAGING: None Computer-aided detection was employed with the [email or web address] AI 3-D. TISSUE DENSITY: There are scattered [...] None Computer-aided detection was employed with the [employer] AI 3-D. TISSUE DENSITY: There are scattered [...] year. Mammography location: [facility] at [address], [address] -------- FINAL REPORT -------- Dictated By: Otf Hoyos Dictated Date: 12/06/2024 16:51 ET Assigned Physician: Otf Hoyos Reviewed and Electronically Signed By: Otf Hoyos Signed Date: 12/06/2024 16:58 ET Workstation ID: [id number] Transcribed By: Self Edit Transcribed Date: 12/06/2024 16:51 ET Shannon Ordaz MD IMG BI PROCEDURES Final Resu lt from Last 3 Months or Most Recently Relevant to Health Maintenance Insurance MEDICAID - [place] MEDICARE Advance Directives Documents on File Type Date Recorded Patient Doctor Of Optometry Expl [facility] Care Decision (hx) 04/26/2024 Anahi Stuart SANDERSON [...] currently active code status orders. Care Teams Branch Banker Relationship Specialty Start Date End Date Shannon Ordaz MD [address] [place] [phone] PCP - General Internal Medicine 08/22/24
--- OUTSIDE RECORDS SUMMARY | 2025-04-24 12:59 | XMS_ITS | Clinical Summary ---
Author Organization [employer] Address [address] [facility] 7t [place] [address] Care Team Providers Care Licensed Acupuncturist Name Role Phone Brooks Smith MD Primary [...] BEDTIME NEEDED FOR CONSTIPATION 180 capsule 1 Active lisinopril 10 MG tabletIndications :Hypertensive emergency TAKE 1 TABLET BY MOUTH EVERY MORNING 90 tablet 1 Active buPROPion XL (Wellbutrin XL) 150 MG 24 hr tabletIndications :Major depressive disorder, recurrent episode with mood-congruent psychotic features (CMS/HCC) (HCC) TAKE 1 TABLET BY MOUTH EVERY MORNING 30 tablet 1 Active atorvastatin (Lipitor) 10 MG tabletIndications :Mixed hyperlipidemia TAKE 1 TABLET BY MOUTH AT BEDTIME 90 tablet 3 025 Active LORazepam (Ativan) 0.5 MG tabletIndications :Major depressive disorder, recurrent episode with mood-congruent psychotic features (CMS/HCC) (HCC) TAKE 1 TABLET BY MOUTH AT BEDTIME NEEDED FOR ANXIETY 28 tablet 025 2024 Active atorvastatin (Lipitor) 10 MG tabletIndications :Mixed [...] before March 21, 2025. 28 tablet 025 2024 Discontinued atorvastatin (Lipitor) 10 MG tabletIndications [...] prevent accidents at home. She has a SITE ACQUISITION MANAGER to help with ADLs, I told patient to avoid any activity that can put her at risk , that otherwise is to be assisted by SITE ACQUISITION MANAGER . Anemia 02/13/2024 Assessment & Plan (01/17/2025 [...] stable. I tld her to call back [facility] to rs lumbar epidural injections [...] r ecurrent episode with mood-congruent psychotic features ([facility]) 05/31/2022 Assessment & Plan (11/15/2023 12:00 [...] Assessment & Plan (12/28/2024 6:27 PM EDT): MARCELLE trazodone due to daytime somnolence. 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 Patient agreed with POC, they will fern picker mirtazapine today and will get back to [...] (last echo on 04/19/23 at [facility] showed EF 60% with no WM [...] information was given to follow [facility] cardiology Check BMP, will call her [...] Closed fracture of fifth lum bar vertebra ([facility]) 11/15/2022 11/23/2024 Assessment & Plan (09/04/2024 [...] Severe obesity (BMI 35.0-39. 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 Date Type Department Care Team Description 04/17/2025 10:30 AM EDT Clinical Support [facility] [address] [place] [address] Kierra Carbajal RN Long-term current use of benzodiazepine (Primary Dx) 04/17/2025 Travel 04/16/2025 Refill [facility] [address] [place] [address] Brooks Smith MD Major depressive disorder, recurrent episode with mood-congruent psychotic features (CMS/HCC) ([facility]) 04/16/2025 Refill [facility] [address] [place] [address] Brooks Smith MD Major depressive disorder, recurrent episode with mood-congruent psychotic features (CMS/HCC) ([facility]) 04/13/2025 Refill [facility] MEDICINE [address] [place] [address] Brooks Smith MD 04/04/2025 Refill [facility] MEDICINE [address] [place] [address] Brooks Smith MD Mixed hyperlipidemia 04/04/2025 Refill [facility] [address] [place] [address] Brooks Smith MD Mixed hyperlipidemia 03/29/2025 Refill [facility] [address] [place] [phone] Gabrielle Howard MD Major depressive disorder, recurrent episode with mood-congruent psychotic features (CMS/HCC) (HCC) 03/28/2025 Orders Only [facility] [address] [place] [phone] Brooks Smith MD 03/26/[address] [address] Brooks Smith MD verbal orders 03/22/2025 11:30 AM EDT Procedure Visit [address] [address] Brooks Smith MD Encounter for cervical Pap smear with pelvic exam (Primary Dx); Cervicitis; Subacute vaginitis; Encounter for vaccination 03/22/2025 Orders Only [address] [address] Brooks Smith MD 03/22/2025 Travel 03/21/[address] [address] Brooks Smith MD chart prep 03/18/2025 10:30 AM EDT Clinical Support [address] [address] Kierra Carbajal RN Long-term current use of benzodiazepine (Primary Dx) 03/18/2025 Refill [facility] [address] [place] [phone] Kierra Carbajal RN Major depressive disorder, recurrent episode with mood-congruent psychotic features (CMS/HCC) 03/18/2025 Travel 03/06/2025 Refill [facility] [address] [place], [place] [phone] Brooks Smith MD Slow transit constipation; Hypertensive emergency; Mixed hyperlipidemia 02/26/2025 2:30 PM EDT Telemedicine [address] [address] Larissa Beauchamp RN Abscess 02/26/2025 Travel 02/21/2025 Refill [facility] [address] [place] [address] Brooks Smith MD Major depressive disorder, recurrent episode with mood-congruent psychotic features (CMS/HCC) 02/21/2025 Refill [facility] [address] [place] [address] Brooks Smith MD Major depressive disorder, recurrent episode with mood-congruent psychotic features (CMS/HCC) 02/20/2025 Telephone [facility] [address] [place] [address] Brooks Smith MD Med Refill 02/20/2025 Refill [facility] [address] [place] [address] Brooks Smith MD Major depressive disorder, recurrent episode with mood-congruent psychotic features (CMS/HCC) 02/20/2025 Refill [facility] [address] [place] [address] Kierra Carbajal RN Major depressive disorder, recurrent episode with mood-congruent psychotic features (CMS/HCC) 02/13/2025 Refill [facility] [address] [place] [address] Brooks Smith MD Major depressive disorder, recurrent episode with mood-congruent psychotic features (CMS/HCC) 02/07/2025 11:30 AM EDT Clinical Support [facility] [address] [place] [phone] Kierra Carbajal, ESTELLE Long-term current use of benzodiazepine (Primary Dx) 02/07/2025 Refill [facility] [address] [place] [address] Brooks Smith MD Major depressive disorder, recurrent episode with mood-congruent psychotic features ([facility]/HCC) 02/07/2025 Refill [facility] [address] [place] [address] Kierra Carbajal, RN Long-term current use of benzodiazepine (Primary Dx) 02/07/2025 Travel from Last 3 Months Immunizations Immunization Administration [...] 05/20/2025 10:30 AM EST Clinical Support [facility] MEDICINE [address] [place] [address] Kierra Carbajal RN 07/12/2025 2:00 PM EST Office Visit [facility] OPTOMETRY [address] [place] [address] Raina Hathaway, OD [address] [place] [address] Health Maintenance Due Date Last Done Comments CT Colonography 1960 FIT DNA/Cologuard 1960 FIT 1960 FOBT 1960 Sigmoidoscopy 1960 Hepatitis C Screening 1976 RSV Patients and Patients Aged 60 years or older (1 - Risk 60-74 years 1-dose series) 2018 Influenza Vaccine (#1) 2025 4, 05/14/2022, 09/24/2021, Additional history exists COVID-19 Vaccine [...] Pressure 166/80(2024 12:02 PM EDT) No Yanet Tse PharmD Record your blood pressure once per day Blood Pressure No Yanet Tse PharmD Take your medication every day Lifestyle No Yanet Tse PharmD Procedures Procedure Name Priority Date/Time Associated Diagnosis Comments POCT YANIRA-14 URINE DRUG SCREEN Routine 04/17/2025 10:50 AM EDT Long-term current use of benzodiazepine HOLD LAVENDER - POSSIBLE HEMATOLOGY Routine 03/28/2025 [...] Relevant to Health Maintenance Results * (ABNORMAL) POCT YANIRA-14 Urine Drug Screen (04/17/2025 10:50 AM EDT) Only the most recent of3 resultswithin the time period is included. THC Negative Negative Cocaine Screen, Urine Negative Negative Opiate Screen, Urine Negative Negative Methamphetamine Screen Urine Negative Negative Amphetamine Screen, Urine Negative Negative Benzodiazepines Screen, Urine Positive(A) Negative Comment:THREAD DRESSER pt on Lorazepam Barbiturate Screen, Urine Negative Negative Methadone Screen, Urine Negative Negative Buprenophine Screen, Urine Negative Negative TCA, Urine Positive(A) Negative MDMA Urine Negative Negative ng/mL Oxycodone Screen, Urine Negative Negative Phencyclidine (PCP), Urine Negative Negative Propoxyphene, Urine Negative Negative Fentanyl, Urine Negative Negative Urine Urine specimen obtained by clean catch procedure / Unknown 04/17/2025 10:50 AM EDT Narrative Kierra Carbajal RN - 04/17/2025 10:50 AM EDT UTOX cup Lot#[id number] Exp. 04/02/26 Internal Pass Control us Brooks Smith MD POINT OF CARE TEST ENTER /EDIT ORDERABLES Final Result * Hold Lavender - Possible Hematology (03/28/2025 3:05 PM EDT) [facility] Hold Lavender - Possible Hematololgy SEE NOTE [facility] Comment:Specimen will be hel d untested for 8 hours. Call Hematologyif testing is desired. 03/28/2025 3:05 PM EDT 03/28/2025 4:22 PM EDT us Brooks Smith MD HISTORICAL/NON ORDERABLE LABS Final Result [facility] [address] [place] [address] [phone] * Protein Creatinine Ratio, Urine (03/28/2025 3:05 PM EDT) Pathologist [facility] Creatinine, Urine 62.32 mg/dL [facility] Protein, Total, Random Urine <7 <12 mg/dL [facility] Protein/Creatin ine Ratio, Ur TNP <0.2 [facility] Comment:Unable to calculate urine protein creatinine ratio due tolow creatinine or protein result. 03/28/2025 3:05 PM EDT 03/28/2025 4:03 PM EDT us Generic External Data Provider LAB URINE ORDERAB LES Final Result Performing Organization Address City/[facility]/ZIP Co de Phone Number [facility] [address] [place] [phone] * Creatinine, Serum (03/28/2025 3:05 PM EDT) Creatinine, Serum 1.01 0.5 - 1.4 mg/dL [facility] Estimated Glomerular Filt Rate 55 [facility] Comment:Chronic Kidney Disea se: Estimated GFR < 60 mL/min/1.24b6Vuktqz Kidney Disease: Estimated GFR < 15 mL/min/1.73m2 03/28/2025 3:05 PM EDT 03/28/2025 4:11 PM EDT us Generic External Data Provider LAB BLOOD ORDERAB LES Final Result Performing Organization Address [facility]/ZIP Co de Phone Number [facility] [address] [place] [phone] * BUN (Blood Urea Nitrogen) (03/28/2025 3:05 PM EDT) Urea Nitrogen (BUN) 14 9 - 16 mg/dL [facility] 03/28/2025 3:05 PM EDT 03/28/2025 4:11 PM EDT us Generic External Data Provider LAB BLOOD ORDERAB LES Final Result Performing Organization Address City/[facility]/ZIP Co de Phone Number [facility] [address] [place] [phone] * (ABNORMAL) Electrolyte Panel (03/28/2025 3:05 PM EDT) Sodium 143 135 - 145 mmol/L [facility] Potassium 4.2 3.3 - 5.1 mmol/L [facility] Chloride 108 96 - 108 mmol/L [facility] Carbon Dioxide 31(H) 22 - 29 mmol/L [facility] Anion Gap 8(L) 12 - 20 [facility] 03/28/2025 3:05 PM EDT 03/28/2025 4:11 PM EDT us Generic External Data Provider LAB BLOOD ORDERAB LES Final Result [facility] [address] [place] [phone] * HPV DNA, Low/High Risk (03/22/2025 12:12 PM EDT) HPV High Risk Negative Negative [facility] HPV Genotype 16 Negative Negative [facility] HPV Genotype 18 Negative Negative [facility] Comment:HPV testing performe d at [facility] (CLIA#[id number]), [address] [place] [address].Testing for HPV was performed using the Santos [...] 2 PM EDT 03/25/2025 6:46 AM EDT Brooks Smith MD LAB BLOOD ORDERABLES Fin al Result [facility] [address] [place] [phone] * Pap Smear (03/22/2025 12:12 PM EDT) Swab Cervical swab / Unknown 03/22/2025 12:12 PM EDT 03/25/2025 6:37 AM EDT Narrative [facility] - 03/28/2025 10:49 AM EDT ----- ------- Name: Gabrielle Street Age/Sex: 64/F : 1960 Unit#: [id number] Attend Dr: Re03/22/25 Status: PRE [facility] Location: [facility] Disch: ----- ------- SPEC : [id number] RECD: 03/25/25 STATUS: CATRINA WANG NUM: [id number] SINGH: 03/22/25-[address] [facility] [address]: Brooks Smith MD ENTERED: 03/25/25 SP TYPE: Pap Smr OTHR DR: ORDERED: Pap Smear Interpretation Satisfactory for evaluation. Negative for intraepithelial lesion or malignancy. HPV High Risk: Negative HPV Genotyping 16: Negative HPV Genotyping 18: Negative Clinical Information LMP:Unk Previous PAP test:7+ years Other surgery: Other history: Material Received ThinPrep-Cervical ----- ------- Signed (signature on file) LAY Hargrove (ASCP) 03/28/25 1049 ----- ------- END OF REPORT Brooks Smith MD LAB CYTOLOGY ORDERABLES Final Result Performing Organization Address [facility]UST de Phone Number [facility] [address] [place] [phone] * BI Mammogram Screening Tomosynthesis Bilateral (12/06/2024) Anatomical Region Laterality Modality Breast Bilateral Mammography Brooks Smith MD IMG BI PROCEDURES Final Result * (ABNORMAL) Hm Colonoscopy (07/19/2023) Colonoscopy Abnormal(A ) Normal [facility] Comment:TA Brooks Smith MD HEALTH MAINTENANCE Edite d Result - Final Performing Organization Address [facility] Co de Phone Number [facility] [address] [place], [place] [phone] * Lipid Panel with Reflex to Direct LDL (06/02/2023 11:15 AM EST) Triglycerides 80 <150 mg/dL [facility] Comment:Desirable Triglyceri de: less than 150 mg/dLBorderline High Triglyceride 150-199 mg/dLHigh Triglyceride: 200-499 mg/dLVery High Triglyceride: greater than or equal to 5OO mg/dL Cholesterol 149 <200 mg/dL [facility] Comment:Desirable Cholestero l: less than 200 mg/dLBorderline High Cholesterol: 200-239 mg/dLHigh Cholesterol: greater than 239 mg/dL LDL Cholesterol Calculated 76 <100 mg/dL [facility] Comment:Desirable LDL: less than 100 mg/dLNear Optimal/Above Optimal LDL: 110- 129 mg/dLBorderline High LDL: 130-159 mg/dLHigh LDL: 160-189 mg/dLVery High LDL: greater than or equal to 190 mg/dL HDL Cholesterol 57 >40 mg/dL [facility] Comment:Desirable HDL: great er than 40 mg/dL Note: This HDL assay may give artificially low results in patients with liver disease. Blood 06/02/2023 11:1 5 AM EST 06/02/2023 1:19 PM EST Brooks Smith MD LAB BLOOD ORDERABLES Fin al Result [facility] [address] [place] [address] [phone] from Last 3 Months or Most Recently Relevant to Health Maintenance Insurance [facility] STANDARD MEDICARE Care Teams Licensed Acupuncturist Relationship Specialty Start Date End Date Brooks Smith MD [address] [place] [address] PCP - General Family Medicine 06/11/19 Benjie Pineda FNP [address] [place] [address] Nurse Practitioner Family Medicine 05/23/23 [facility] 08/28/24 marco 11/23/24
--- OUTSIDE RECORDS SUMMARY | 2025-04-24 12:59 | XMS_ITS | Encounter Summary ---
Author Organization [employer] Address [address] [facility] 7[address] [place] [address] Care Team Providers Care Die Engraver Name Role Phone Shannon Ordaz MD Primary Care Provider + Benjie Pineda Unavailable Unavailable Reason for Visit * Reason Comments Med Refill Encounter Details Date Type Department Care Team ([facility] st Contact Info) Description 06/13/2024 Refill [facility] [address] [place], [place] [phone] Shannon Ordaz MD [address] [place], [place] [phone] Primary hypertension Social History Tobacco Use Types [...] Description 05/20/2025 10:30 AM EST Clinical Support [facility] [address] [place] [address] Kierra Carbajal RN 07/12/2025 2:00 PM EST Office Visit [facility] [address] [place] [address] Rivas, Raina, OD [address] [place] [address] documented as of this encounter Goals Goal [...] documented as of this encounter Care Teams Die Engraver Relationship Specialty Start Date End Date Shannon Ordaz MD [address] [place] [address] PCP - General Family Medicine 06/11/19 Benjie Pineda FNP [address] [place] [address] Nurse Practitioner Family Medicine 05/23/23 [facility] 08/28/24 marco 11/23/24 documented as of this encounter
--- OUTSIDE RECORDS SUMMARY | 2025-04-24 12:59 | XMS_ITS | Encounter Summary ---
Author Organization [employer] Address [address] [facility] [address] [place] [address] Care Team Providers Care Biometric Screener Name Role Phone Shannon Ordaz MD Primary Care Provider + Benjie Pineda Unavailable Unavailable Encounter Details Date Type Department Care Team (Late st Contact Info) Description 04/24/2024 Orders Only [facility] [address] [place] [address] ProviderYarelis MD Social History Tobacco Use Types [...] 05/20/2025 10:30 AM EST Clinical Support [facility] MEDIC[facility] [address] [place], [place] [phone] Kierra Carbajal RN 07/12/2025 2:00 PM EST Office Visit [facility] OPTOMETRY [address] [place], [place] [phone] Raina Hathaway, OD [address] [place] [address] documented as of this encounter Goals Goal [...] documented as of this encounter Care Teams Biometric Screener Relationship Specialty Start Date End Date Shannon Ordaz MD [address] [place] [address] PCP - General Family Medicine 06/11/19 Benjie Pineda FNP [address] [place] [address] Nurse Practitioner Family Medicine 05/23/23 [facility] 04/25/24 05/03/24 [facility] 08/28/24 marco 11/23/24 documented as of this encounter
--- OUTSIDE RECORDS SUMMARY | 2025-04-24 12:59 | XMS_ITS | Encounter Summary ---
Author Organization [employer] Address [address] [facility] [address] [place] [address] Care Team Providers Care Superintendent Operations Division Name Role Phone Shannon Ordaz MD Primary Care Provider + Benjie Pineda Unavailable Unavailable Reason for Visit * Reason Comments Med Refill Encounter Details Date Type Department Care Team ([facility] st Contact Info) Description 12/07/2024 Refill [facility] [address] [place], [place] [phone] Shannon Ordaz MD [address] [place], [place] [phone] Anxiety and depression Social History Tobacco Use [...] Description 05/20/2025 10:30 AM EST Clinical Support [facility] [address] [place] [address] Kierra Carbajal RN 07/12/2025 2:00 PM EST Office Visit [facility] [address] [place] [address] Rivas, Raina, OD [address] [place] [address] documented as of this encounter Goals Goal [...] documented as of this encounter Care Teams Superintendent Operations Division Relationship Specialty Start Date End Date Shannon Ordaz MD [address] [place] [address] PCP - General Family Medicine 06/11/19 Benjie Pineda FNP [address] [place] [address] Nurse Practitioner Family Medicine 05/23/23 [facility] 08/28/24 khaiara 11/23/24 documented as of this encounter
--- OUTSIDE RECORDS SUMMARY | 2025-04-24 12:59 | XMS_ITS | Encounter Summary ---
Author Organization [employer] Address [address] [facility] 7t [place] [address] Care Team Providers Care Adult Protective Caseworker Name Role Phone Shannon Ordaz MD Primary Care Provider + Benjie Pineda Unavailable Unavailable Encounter Details Date Type Department Care Team (Late st Contact Info) Description 11/22/2024 Orders Only [facility] [address] [place] [address] ProviderYarelis MD Social History Tobacco Use Types [...] Description 05/20/2025 10:30 AM EST Clinical Support [facility] MEDICINE [address] [place], [place] [phone] Kierra Carbajal RN 07/12/2025 2:00 PM EST Office Visit [facility] OPTOMETRY [address] [place], [place] [phone] Raina Hathaway, OD [address] [place] [address] documented as of this encounter Goals Goal [...] documented as of this encounter Care Teams Adult Protective Caseworker Relationship Specialty Start Date End Date Shannon Ordaz MD [address] [place] [address] PCP - General Family Medicine 06/11/19 Benjie Pineda FNP [address] [place] [address] Nurse Practitioner Family Medicine 05/23/23 [facility] 08/28/24 elara 11/23/24 documented as of this encounter
== END 2025-04-24 10:58 | disposition home or self-care (01) ==
LOC: HO.HPS 10:28
PROVIDERS: PCP Internal Medicine; Visit Provider Internal Medicine Pulmonary Disease
DX: J44.9 Chronic obstructive pulmonary disease, unspecified (principal); R06.09 Other forms of dyspnea
CPT/HCPCS: 99214

== ENCOUNTER → 2025-04-24 10:27 | Outpatient (BNVA) | payer MEDICARE, MEDICAID, SELFPAY | PROVIDERS: PCP Internal Medicine; Visit Provider Internal Medicine Pulmonary Disease | DX: R06.09 Other forms of dyspnea (principal); R06.01 Orthopnea; J44.9 Chronic obstructive pulmonary disease, unspecified; I50.30 Unspecified diastolic (congestive) heart failure; Z87.891 Personal history of nicotine dependence | CPT/HCPCS: 99212 ==

== ENCOUNTER 2025-06-05 10:29 | Outpatient (REF) | payer MEDICARE, MEDICAID, SELFPAY ==
[2025-06-05 11:33] LABS: Anion Gap 8 (12-20); Blood Urea Nitrogen 15 mg/dL (9-16); Carbon Dioxide 30 mmol/L (22-29); Chloride 108 mmol/L (96-108); Estimated Glomerular Filt Rate 54; Potassium 4.7 mmol/L (3.3-5.1); Sodium 141 mmol/L (135-145)
[2025-06-05 13:01] LABS: Total Protein Urine Random < 7 mg/dL (<12)
== END 2025-06-05 10:30 | disposition home or self-care (01) ==
LOC: HO.LAB 10:29
PROVIDERS: PCP Internal Medicine; Visit Provider Internal Medicine Nephrology
DX: N18.31 Chronic kidney disease, stage 3a (principal)
CPT/HCPCS: 36415; 80051; 82565; 82570; 84156; 84520

== ENCOUNTER 2025-06-12 09:54 | Outpatient (AMB) | payer MEDICARE, MEDICAID, SELFPAY ==
--- NOTE | 2025-06-12 09:59 | HO.NEPHOV ---
Vital Signs 06/12/25 10:02 Height 5 ft Weight 181 lb 8 oz BMI 35.4 BP 110/64 Blood Pressure Location Lt brachial Position Sitting Pulse 69 Pulse Source Pulse Oximeter Pulse Oximetry (%) 98 Oxygen Delivery Method Room Air Intake Visit Reasons: 6 MO FU-Conf User Interface Designer Required: Yes User Interface Designer Language: Strip Feeder Services: User Interface Designer Offered & Declined ([facility] [place] User Interface Designer services refused ) Accompanied by: Daughter Allergies No Known Allergies (No Known Allergies*) Allergy (Verified 06/12/25 10:01) HPI Comments Details: Gabrielle was seen in follow up for chronic kidney disease and hypertension. Her serum creatinine settled to baseline. She has lot of arthritic issues and has a H/O taking nonsteroidals as needed basis. She denies any coronary artery disease, congestive heart failure, carotid stenosis, CVA, renal artery stenosis or peripheral arterial disease. She has not a diabetic. She denies any nausea vomiting or diarrhea, pedal edema, shortness of breath, paroxysmal nocturnal dyspnea, orthopnea, orthostatic symptoms, hematuria or urinary symptoms. She has history of CVA. She feels improved and does not have any new complaints now [facility] Medical History Chronic constipation History of colon polyps Internal hemorrhoids CVA (cerebral vascular accident) Abdominal pain Barretts esophagus Acid reflux Dyspnea Depression Anxiety Hypertension COPD (chronic obstructive pulmonary disease) Surgical History Hx of colonoscopy History of esophagogastroduodenoscopy (EGD) H/O section History of appendectomy History of cholecystectomy Family History Mother Cancer Maternal Grandmother Cancer Social History Household Members: None Alcohol intake: never Patient Tobacco Use Status: Never used Tobacco Current occupational status: disabled Review of Systems Const All systems reviewed & are unremarkable except as noted in HPI and below Physical Exam Vital Signs: Last Vital Signs Pulse 69 06/12/25 10:02 BP 110/64 06/12/25 10:02 Pulse Ox 98 06/12/25 10:02 Oxygen Delivery Method Room Air 06/12/25 10:02 BMI result Body Mass Index 35.4 Const General: comfortable and no acute distress Orientation/consciousness: patient oriented x3 HEENT Head: Yes normocephalic Mouth: Normal oral and palatal mucosa present Eyes EOM: EOMs intact bilaterally Neck Neck: Yes supple Resp Auscultation: clear to auscultation bilaterally Cardio Jugular venous distension: no JVD Rate: regular rate GI Palpation (GI): Soft to palpation Auscultation: normal bowel sounds General: Yes no CVA tenderness Back/Spine/Pelvis Back: no CVA tenderness Skin General skin exam: no rashes or lesions noted Neuro General: patient oriented x3 and moves all extremities Extrem General: Yes no pedal edema Results Reviewed Nephrology Results: Hgb, (12.0-16.0) 11.6 g/dl L 03/28/25 WBC, (4.8-10.8) 6.0 X10*3/uL 03/28/25 Plt Count, (160-400) 206 X10*3/uL 03/28/25 Sodium, (135-145) 141 mmol/L 06/05/25 Potassium, (3.3-5.1) 4.7 mmol/L 06/05/25 Chloride, (96-108) 108 mmol/L 06/05/25 Carbon Dioxide, (22-29) 30 mmol/L H 06/05/25 BUN, (9-16) 15 mg/dL 06/05/25 Creatinine, (0.5-1.4) 1.03 mg/dL 06/05/25 Calcium, (8.4-10.2) 9.2 mg/dL 03/28/25 Urine Creatinine 64.64 mg/dL 06/05/25 Protein/Creatinin Ratio TNP 06/05/25 Renal US 10/17/23 Assessment & Plan Assessment & Plan (1) Hypertension: Code(s): I10 - Essential (primary) hypertension Category: Medical Qualifiers: Hypertension type: primary hypertension Qualified Code(s): I10 - Essential (primary) hypertension (2) CKD (chronic kidney disease) stage 3, GFR 30-59 ml/min: Code(s): N18.30 - Chronic kidney disease, stage 3 unspecified Category: Medical Qualifiers: Chronic kidney disease stage 3 subtype: stage 3a (GFR 45-59) Qualified Code(s): N18.31 - Chronic kidney disease, stage 3a Plan Her serum creatinine is at baseline.She has CKD stage 3 due to vascular disease. I plan to do a Doppler of her renal arteries with time. She does not have any significant proteinuria. She should avoid nonsteroidal anti-inflammatories and maintain good hydration. I did not make any medication changes today. Follow-up appointment given Orders: Orders Protein Creatinine Ratio, Ur 6 Months I10 - Essential (primary) hypertension, N18.31 - Chronic kidney disease, stage 3a Electrolytes 6 Months I10 - Essential (primary) hypertension, N18.31 - Chronic kidney disease, stage 3a Blood Urea Nitrogen 6 Months I10 - Essential (primary) hypertension, N18.31 - Chronic kidney disease, stage 3a Creatinine 6 Months I10 - Essential (primary) hypertension, N18.31 - Chronic kidney disease, stage 3a Coding Level of Care Code Est Pt Level 4 (48779) Diagnoses Primary hypertension I10 Hypertension type: primary hypertension Stage 3a chronic kidney disease N18.31 Chronic kidney disease stage 3 subtype: stage 3a (GFR 45-59)
[2025-06-12 10:02] VITALS: BP 110/64; PULSE 69; O2SAT 98; BMI 35.4
--- OUTSIDE RECORDS SUMMARY | 2025-06-12 11:51 | XMS_ITS | Encounter Summary ---
Author Organization [employer] Address [address] [facility] 7t [place] [address] Care Team Providers Care Electro Mechanical Solar Technician Name Role Phone Shannon Ordaz MD Primary Care Provider + Benjie Pineda Unavailable Unavailable Reason for Visit * Reason Comments Med Refill Encounter Details Date Type Department Care Team ([facility] st Contact Info) Description 01/07/2025 Refill [facility] MEDICINE [address] [place], [place] [phone] Shannon Ordaz MD [address] [place], [place] [phone] Mixed hyperlipidemia; Anxiety and depression Social History [...] Care Team (Late st Contact Info) Description 07/12/2025 2:00 PM EST Office Visit [facility] OPTOMETRY [address] [place], [place] [phone] Raina Hathaway, OD [address] [place] [address] documented as of this encounter Goals Goal [...] documented as of this encounter Care Teams Electro Mechanical Solar Technician Relationship Specialty Start Date End Date Shannon Ordaz MD [address] [place] [address] PCP - General Family Medicine 06/11/19 Benjie Pineda FNP [address] [place] [address] Nurse Practitioner Family Medicine 05/23/23 [facility] 08/28/24 marco 11/23/24 documented as of this encounter
--- OUTSIDE RECORDS SUMMARY | 2025-06-12 11:51 | XMS_ITS | Encounter Summary ---
Author Organization [employer] Address [address] [facility] 7t [place] [address] Care Team Providers Care Manager Copy Name Role Phone Shannon Ordaz MD Primary Care Provider + Benjie Pineda Unavailable Unavailable Encounter Details Date Type Department Care Team (Late st Contact Info) Description 07/21/2023 Abstract [facility] MEDICINE [address] [place], [place] [phone] Shannon Ordaz MD [address] [place], [place] [phone] Social History Tobacco Use Types Packs/Day Years [...] Description 07/12/2025 2:00 PM EST Office Visit [facility] OPTOMETRY [address] [place], [place] [phone] Rivas, Raina, OD [address] [place] [address] documented as of this encounter Procedures Procedure Name Priority Date/Time Associated Diagnosis Comments COLONOSCOPY Routine 07/19/2023 documented in this encounter Results * (ABNORMAL) Colonoscopy (07/19/2023) Colonoscopy Abnormal(A ) Normal [facility] Comment:TA us Shannon Ordaz MD HEALTH MAINTENANCE Edite d Result - Final [facility] [address] [place] [address] [phone] documented in this encounter Visit Diagnoses Not on filedocumented in this encounter Additional Health Concerns Assessment Noted Time PHQ-9 Depression Total Score: 3 05/31/20 23 10:47 AM EST documented as of this encounter Care Teams Manager Copy Relationship Specialty Start Date End Date Shannon Ordaz MD [address] [place] [address] PCP - General Family Medicine 12/16/19 Benjie Pineda FNP [address] [place] [address] Nurse Practitioner Family Medicine 05/23/23 [facility] 04/25/24 05/03/24 [facility] 08/28/24 marco 11/23/24 documented as of this encounter
--- OUTSIDE RECORDS SUMMARY | 2025-06-12 11:51 | XMS_ITS | Encounter Summary ---
Author Organization [employer] Address [address] [facility] 7t [place] [address] Care Team Providers Care Flour Inspector Name Role Phone Shannon Ordaz MD Primary Care Provider + Benjie Pineda Unavailable Unavailable Reason for Visit * Reason Comments Med Refill Encounter Details Date Type Department Care Team ([facility] st Contact Info) Description 08/30/2023 Refill [facility] MED & PEDS [address] [place], [place] [phone] Shannon Ordaz MD [address] [place] [address] Social History Tobacco Use Types Packs/Day Years [...] Description 07/12/2025 2:00 PM EST Office Visit [facility] OPTOMETRY [address] [place] [address] Raina Hathaway, OD [address] [place] [address] documented as of this encounter Visit Diagnoses Not on filedocumented in this encounter Additional Health Concerns Assessment Noted Time PHQ-9 Depression Total Score: 2 08/02/19 24 9:41 AM EST documented as of this encounter Care Teams Flour Inspector Relationship Specialty Start Date End Date Shannon Ordaz MD [address] [place] [address] PCP - General Family Medicine 06/11/19 Benjie Pineda FNP [address] [place] [address] Nurse Practitioner Family Medicine 05/23/23 [facility] 04/25/24 05/03/24 [facility] 08/28/24 marco 11/23/24 documented as of this encounter
--- OUTSIDE RECORDS SUMMARY | 2025-06-12 11:51 | XMS_ITS | Encounter Summary ---
Author Organization [employer] Address [address] [facility] [address] 7t [place] [address] Care Team Providers Care Lead Cargo Mover Name Role Phone Shannon Ordaz MD Primary Care Provider + Benjie Pineda Unavailable Unavailable Reason for Visit * Reason Comments Med Refill Encounter Details Date Type Department Care Team ([facility] st Contact Info) Description 02/13/2025 Refill [facility] MED & PEDS [address] [place], [place] [phone] Shannon Ordaz MD [address] [place] [address] Major depressive disorder, recurrent episode with mood-congruent [...] Description 07/12/2025 2:00 PM EST Office Visit [facility] OPTOMETRY [address] [place] [address] Rivas, Raina, OD [address] [place] [address] documented as of this encounter Goals Goal [...] documented as of this encounter Care Teams Lead Cargo Mover Relationship Specialty Start Date End Date Shannon Ordaz MD [address] [place] [address] PCP - General Family Medicine 06/11/19 Benjie Pineda FNP [address] [place] [address] Nurse Practitioner Family Medicine 05/23/23 [facility] 08/28/24 marco 11/23/24 documented as of this encounter
--- OUTSIDE RECORDS SUMMARY | 2025-06-12 11:51 | XMS_ITS | Encounter Summary ---
Author Organization [employer] Address [address] [facility] 7t [place] [address] Care Team Providers Care Grinding Wheel Inspector Name Role Phone Shannon Ordaz MD Primary Care Provider + Benjie Pineda Unavailable Unavailable Reason for Visit * Reason Comments Med Refill Encounter Details Date Type Department Care Team ([facility] st Contact Info) Description 04/13/2025 Refill [facility] MEDICINE [address] [place], [place] [phone] Shannon Ordaz MD [address] [place], [place] [phone] Social History Tobacco Use Types Packs/Day Years [...] Description 07/12/2025 2:00 PM EST Office Visit [facility] OPTOMETRY [address] [place], [place] [phone] Raina Hathaway, OD [address] [place] [address] documented as of this encounter Goals Goal [...] documented as of this encounter Care Teams Grinding Wheel Inspector Relationship Specialty Start Date End Date Shannon Ordaz MD [address] [place] [address] PCP - General Family Medicine 06/11/19 Benjie Pineda FNP [address] [place] [address] Nurse Practitioner Family Medicine 05/23/23 [facility] 08/28/24 marco 11/23/24 documented as of this encounter
--- OUTSIDE RECORDS SUMMARY | 2025-06-12 11:51 | XMS_ITS | Encounter Summary ---
Author Organization [employer] Address [address] [facility] 7t [place] [address] Care Team Providers Care Director Athletic Name Role Phone Shannon Ordaz MD Primary Care Provider + Benjie Pineda Unavailable Unavailable Reason for Visit * Reason Onset Date Comments Med Refill 04/16/2025 Encounter Details Date Type Department Care Team (Late st Contact Info) Description 04/16/2025 Refill [facility] MEDICINE [address] [place], [place] [phone] Shannon Ordaz MD [address] [place], [place] [phone] Major depressive disorder, recurrent episode with mood-congruent [...] Description 07/12/2025 2:00 PM EST Office Visit [facility] OPTOMETRY [address] [place] [address] Rivas, Raina, OD [address] [place] [address] documented as of this encounter Goals Goal [...] as of this encounter Care Teams Director Athletic Relationship Specialty Start Date End Date Shannon Ordaz MD [address] [place] [address] PCP - General Family Medicine 06/11/19 Benjie Pineda FNP [address] [place] [address] Nurse Practitioner Family Medicine 05/23/23 [facility] 08/28/24 khaiara 11/23/24 documented as of this encounter
--- OUTSIDE RECORDS SUMMARY | 2025-06-12 11:52 | XMS_ITS | Encounter Summary ---
Author Organization [employer] Address [address] [facility] [address]t [place] [address] Care Team Providers Care Soda Fountain Clerk Name Role Phone Shannon Ordaz MD Primary Care Provider + Benjie Pineda Unavailable Unavailable Encounter Details Date Type Department Care Team (Late Contact Info) Description 03/01/2023 Abstract [facility] MEDICINE [address] [place], [place] [phone] Shannon Ordaz MD [address] [place] [address] Social History Tobacco Use Types Packs/Day Years [...] Description 07/12/2025 2:00 PM EST Office Visit [facility] OPTOMETRY [address] [place], [place] [phone] Raina Hathaway OD [address] [place] [address] documented as of this encounter Visit Diagnoses Not on filedocumented in this encounter Additional Health Concerns Assessment Noted Time PHQ-9 Depression Total Score: 8 02/02/20 11:15 AM EDT documented as of this encounter Care Teams Soda Fountain Clerk Relationship Specialty Start Date End Date Shannon Ordaz MD [address] [place] [address] PCP - General Family Medicine 06/11/19 Benjie Pineda FNP [address] [place] [address] Nurse Practitioner Family Medicine 05/23/23 [facility] 04/25/24 05/03/24 [facility] 08/28/24 marco 11/23/24 documented as of this encounter
--- OUTSIDE RECORDS SUMMARY | 2025-06-12 11:52 | XMS_ITS | Encounter Summary ---
Author Organization [employer] Address [address] [facility] [address]t [place] [address] Care Team Providers Care Batch Operator Name Role Phone Shannon Ordaz MD Primary Care Provider + Benjie Pineda Unavailable Unavailable Reason for Visit * Reason Comments Med Refill Encounter Details Date Type Department Care Team (Late st Contact Info) Description 06/29/2022 Refill [facility] MEDICINE [address] [place], [place] [phone] Benjie Pineda FNP Social History Tobacco Use [...] Description 07/12/2025 2:00 PM EST Office Visit [facility] OPTOMETRY [address] [place], [place] [phone] RivasRaina gómez, OD [address] [place] [address] documented as of this encounter Visit Diagnoses Not on filedocumented in this encounter Care Teams Batch Operator Relationship Specialty Start Date End Date Shannon Ordaz MD [address] [place] [address] PCP - General Family Medicine 06/11/19 Benjie Pineda FNP [address] [place] [address] Nurse Practitioner Family Medicine 05/23/23 [facility] 04/25/24 05/03/24 [facility] 08/28/24 marco 11/23/24 documented as of this encounter
--- OUTSIDE RECORDS SUMMARY | 2025-06-12 11:52 | XMS_ITS | Encounter Summary ---
Author Organization [employer] Address [address] [facility] 7t [place] [address] Care Team Providers Care Tank Processor Name Role Phone Shannon Ordaz MD Primary Care Provider + Benjie Pineda Unavailable Unavailable Encounter Details Date Type Department Care Team (Late st Contact Info) Description 04/24/2024 Orders Only [facility] [address] [place] [address] ProviderYarelis MD Social History Tobacco Use Types [...] Description 07/12/2025 2:00 PM EST Office Visit [facility] OPTOMETRY [address] [place] [address] RivasRaina, OD [address] [place] [address] documented as of this encounter Goals Goal [...] documented as of this encounter Care Teams Tank Processor Relationship Specialty Start Date End Date Shannon Ordaz MD [address] [place] [address] PCP - General Family Medicine 06/11/19 Benjie Pineda FNP [address] [place] [address] Nurse Practitioner Family Medicine 05/23/23 [facility] 04/25/24 05/03/24 [facility] 08/28/24 marco 11/23/24 documented as of this encounter
--- OUTSIDE RECORDS SUMMARY | 2025-06-12 11:52 | XMS_ITS | Encounter Summary ---
Author Organization [employer] Address [address] [place] [address] 7t [place] [address] Care Team Providers Care Motorized Squad Lieutenant Name Role Phone Shannon Ordaz MD Primary Care Provider + Benjie Pineda Unavailable Unavailable Reason for Visit * Reason Onset Date Comments Referral 08/26/2022 Encounter Details Date Type Department Care Team (Late st Contact Info) Description 08/26/2022 Telephone [facility] MEDICINE [address] [place], [place] [phone] Shannon Ordaz MD [address] [place], [place] [phone] Referral Social History Tobacco Use Types Packs/Day [...] 3:08 PM EST TC returned to pt [phone] to inform pt provider has placed PT referral today. Pt verbalized understanding. RN will send message to digital media specialist to ensure referral gets processed as pt's appt is on 09/03/22. * Telephone Encounter - Alta Daniel - 08/30/2022 12:03 PM EST Tc from pt checking status on physical therapy referral . * Telephone Encounter - Gumaro Storm - 08/26/2022 4:28 PM EST Tc from pt returning call regarding missing information she didn't have for the referral needed forphysical therapy. Location: [place] [address] Phone #: [phone] Please contact pt at [phone] documented in this encounter Plan of Treatment Upcoming Encounters Date Type Department Care Team (Late st Contact Info) Description 07/12/2025 2:00 PM EST Office Visit [facility] OPTOMETRY [address] [place] [address] Raina Hathaway, OD [address] [place] [address] documented as of this encounter Visit Diagnoses Not on filedocumented in this encounter Additional Health Concerns Assessment Noted Time PHQ-9 Depression Total Score: 9 08/19/19 23 11:05 AM EST documented as of this encounter Care Teams Motorized Squad Lieutenant Relationship Specialty Start Date End Date Shannon Ordaz MD [address] [place] [address] PCP - General Family Medicine 06/11/19 Benjie Pineda FNP [address] [place] [address] Nurse Practitioner Family Medicine 05/23/23 [facility] 04/25/24 05/03/24 [facility] 08/28/24 marco 11/23/24 documented as of this encounter
--- OUTSIDE RECORDS SUMMARY | 2025-06-12 11:52 | XMS_ITS | Encounter Summary ---
Author Organization [employer] Address [address] [facility] [address]t [place] [address] Care Team Providers Care Production Team Leader Name Role Phone Shannon Ordaz MD Primary Care Provider + Benjie Pineda Unavailable Unavailable Reason for Visit * Reason Onset Date Comments Hospital Follow-up 03/22/2024 Encounter Details Date Type Department Care Team ([facility] st Contact Info) Description 03/22/2024 Telephone [facility] MEDICINE [address] [place], [place] [phone] Shannon Ordaz MD [address] [place], [place] [phone] Hospital Follow-up Social History Tobacco Use Types [...] is your housing situation today? I have adlefo lazo 04/12/[address] you [...] from pt requesting a HDF appt. Hospital: [facility] Date of admission: 03/17/24 Discharge date: 03/21/24 Diagnosed: diarrhea and rectal bleeding documented in this encounter Plan of Treatment Upcoming Encounters Date Type Department Care Team (Late st Contact Info) Description 07/12/2025 2:00 PM EST Office Visit [facility] OPTOMETRY [address] [place] [address] Raina Hathaway, OD [address] [place] [address] documented as of this encounter Goals Goal [...] documented as of this encounter Care Teams Production Team Leader Relationship Specialty Start Date End Date Shannon Ordaz MD [address] [place] [address] PCP - General Family Medicine 06/11/19 Benjie Pineda FNP [address] [place] [address] Nurse Practitioner Family Medicine 05/23/23 [facility] 04/25/24 05/03/24 [facility] 08/28/24 marco 11/23/24 documented as of this encounter
--- OUTSIDE RECORDS SUMMARY | 2025-06-12 11:52 | XMS_ITS | Encounter Summary ---
Author Organization [employer] Address [address] [facility] [address] [place] [address] Care Team Providers Care Ecologist Name Role Phone Shannon Ordaz MD Primary Care Provider + Benjie Pineda Unavailable Unavailable Reason for Visit * Reason Comments Med Refill Encounter Details Date Type Department Care Team ([facility] st Contact Info) Description 02/20/2025 Refill [facility] CHC MED & PEDS [address] [place], [place] [phone] Shannon Ordaz MD [address] [place] [address] Major depressive disorder, recurrent episode with mood-congruent [...] Description 07/12/2025 2:00 PM EST Office Visit [facility] OPTOMETRY [address] [place] [address] Rivas, Riana, OD [address] [place] [address] documented as of this encounter Goals Goal [...] documented as of this encounter Care Teams Ecologist Relationship Specialty Start Date End Date Shannon Ordaz MD 230 [place] [address] PCP - General Family Medicine 06/11/19 Benjie Pineda FNP [address] [place] [address] Nurse Practitioner Family Medicine 05/23/23 [facility] 08/28/24 marco 11/23/24 documented as of this encounter
--- OUTSIDE RECORDS SUMMARY | 2025-06-12 11:52 | XMS_ITS | Encounter Summary ---
Author Organization [employer] Address [address] [facility] [address]t [place] [address] Care Team Providers Care Water Reclamation Systems Operator Name Role Phone Shannon Ordaz MD Primary Care Provider + Benjie Pineda Unavailable Unavailable Encounter Details Date Type Department Care Team (Late st Contact Info) Description 11/22/2024 Orders Only [facility] [address] [place] [address] ProviderYarelis MD Social History Tobacco Use Types [...] Description 07/12/2025 2:00 PM EST Office Visit [facility] OPTOMETRY [address] [place] [address] Rivas, Megan, OD [address] [place] [address] documented as of this encounter Goals Goal [...] as of this encounter Care Teams Water Reclamation Systems Operator Relationship Specialty Start Date End Date Shannon Ordaz MD [address] [place] [address] PCP - General Family Medicine 06/11/19 Benjie Pineda FNP [address] [place] [address] Nurse Practitioner Family Medicine 05/23/23 [facility] 08/28/24 elara 11/23/24 documented as of this encounter
--- OUTSIDE RECORDS SUMMARY | 2025-06-12 11:52 | XMS_ITS | Encounter Summary ---
Author Organization [employer] Address [address] [facility] 7t [place] [address] Care Team Providers Care Data Assistant Name Role Phone Shannon Ordaz MD Primary Care Provider + Benjie Pineda Unavailable Unavailable Reason for Visit * Reason Comments Med Refill Encounter Details Date Type Department Care Team (Late st Contact Info) Description 07/26/2022 Refill [facility] [address] [place] [address] Benjie Pineda FNP Major depressive disorder, recurrent [...] Description 07/12/2025 2:00 PM EST Office Visit [facility] [address] [place] [address] Rivas, Raina, OD [address] [place] [address] documented as of this encounter Visit Diagnoses Diagnosis Major depressive disorder, recurrent episode with mood-congruent psychotic features (CMS/HCC) (HCC) documented in this encounter Additional Health Concerns Assessment Noted Time PHQ-9 Depression Total Score: 11 023 9:08 AM EST documented as of this encounter Care Teams Data Assistant Relationship Specialty Start Date End Date Shannon Ordaz MD [address] [place] [address] PCP - General Family Medicine 06/11/19 Benjie Pineda FNP [address] [place] [address] Nurse Practitioner Family Medicine 05/23/23 [facility] 04/25/24 05/03/24 [facility] 08/28/24 marco 11/23/24 documented as of this encounter
--- OUTSIDE RECORDS SUMMARY | 2025-06-12 11:52 | XMS_ITS | Encounter Summary ---
Author Organization [employer] Address [address] [facility] 7t [place] [address] Care Team Providers Care Green Chain Worker Name Role Phone Shannon Ordaz MD Primary Care Provider + Benjie Pineda Unavailable Unavailable Encounter Details Date Type Department Care Team (Late st Contact Info) Description 11/23/2023 Orders Only [facility] MED[facility]INE [address] [place] [address] Provider, MD Yarelis Social History Tobacco Use [...] Description 07/12/2025 2:00 PM EST Office Visit [facility] OPT[facility] [address] [place] [address] Rivas, Megan, OD [address] [place] [address] documented as of this encounter Procedures Procedure [...] documented as of this encounter Care Teams Green Chain Worker Relationship Specialty Start Date End Date Shannon Ordaz MD [address] [place] [id number] PCP - General Family Medicine 06/11/19 Benjie Pineda FNP [address] [place] [address] Nurse Practitioner Family Medicine 05/23/23 [facility] 04/25/24 05/03/24 [facility] 08/28/24 marco 11/23/24 documented as of this encounter
--- OUTSIDE RECORDS SUMMARY | 2025-06-12 11:52 | XMS_ITS | Encounter Summary ---
Author Organization [employer] Address [address] [facility] [address]t [place] [address] Care Team Providers Care Geoscientist Name Role Phone Shannon Ordaz MD Primary Care Provider + Benjie Pineda Unavailable Unavailable Reason for Visit * Reason Onset Date Comments FYI 03/22/2024 Encounter Details Date Type Department Care Team ([facility] st Contact Info) Description 03/22/2024 Telephone [facility] [address] [place], [place] [phone] Shannon Ordaz MD [address] [place], [place] [phone] FYI Social History Tobacco Use Types Packs/Day [...] Description 07/12/2025 2:00 PM EST Office Visit [facility] [address] [place] [address] Raina Hathaway, OD [address] [place] [address] documented as of this encounter Goals Goal Patient Goal Type Associated Problems Recent Progress Patient-Stated? Author Blood Pressure < 140/90 Blood Pressure 166/80(2024 12:02 PM EDT) No Piers-Yanet Lambert PharmD Record your blood pressure once per day Blood Pressure No Yanet Tse PharmD Take your medication every day Lifestyle No Yanet Tse PharmD documented as of this encounter Visit Diagnoses Not on filedocumented in this encounter Additional Health Concerns Assessment Noted Time PHQ-9 Depression Total Score: 2 11/15/19 24 11:12 AM EDT documented as of this encounter Care Teams Geoscientist Relationship Specialty Start Date End Date Shannon Ordaz MD [address] [place] [address] PCP - General Family Medicine 06/11/19 Benjie Pineda FNP [address] [place] [address] Nurse Practitioner Family Medicine 05/23/23 [facility] 04/25/24 05/03/24 [facility] 08/28/24 marco 11/23/24 documented as of this encounter
--- OUTSIDE RECORDS SUMMARY | 2025-06-12 11:52 | XMS_ITS | Encounter Summary ---
Author Organization [employer] Address [address] [place] [address] [address]t [place] [address] Care Team Providers Care Sales Product Manager Name Role Phone Shannon Ordaz MD Primary Care Provider + Benjie Pineda Unavailable Unavailable Reason for Visit * Reason Onset Date Comments Appointment Request 08/26/2022 Encounter Details Date Type Department Care Team (Late st Contact Info) Description 08/26/2022 Telephone [facility] MEDICINE [address] [place], [place] [phone] Shannon Ordaz MD [address] [place], [place] [phone] Appointment Request Social History Tobacco Use Types [...] labs/htn RCL ) Please contact pt at [phone] documented in this encounter Plan of Treatment Upcoming Encounters Date Type Department Care Team (Late st Contact Info) Description 07/12/2025 2:00 PM EST Office Visit [facility] OPTOMETRY [address] [place] [address] Rivas, Raina, OD [address] [place] [address] documented as of this encounter Visit Diagnoses Not on filedocumented in this encounter Additional Health Concerns Assessment Noted Time PHQ-9 Depression Total Score: 9 08/19/19 23 11:05 AM EST documented as of this encounter Care Teams Sales Product Manager Relationship Specialty Start Date End Date Shannon Ordaz MD [address] [place] [address] PCP - General Family Medicine 06/11/19 Benjie Pineda FNP [address] [place] [address] Nurse Practitioner Family Medicine 05/23/23 [facility] 04/25/24 05/03/24 [facility] 08/28/24 marco 11/23/24 documented as of this encounter
--- OUTSIDE RECORDS SUMMARY | 2025-06-12 11:52 | XMS_ITS | Encounter Summary ---
Author Organization [employer] Address [address] [facility] [address] [place] [address] Care Team Providers Care Iron Carrier Name Role Phone Shannon Ordaz MD Primary Care Provider + Benjie Pineda Unavailable Unavailable Encounter Details Date Type Department Care Team (Late Contact Info) Description 08/30/2022 Orders Only [facility] MEDICINE [address] [place], [place] [phone] Radha Hubbard MD [address] [place], [place] [phone] Neuropathy involving both lower extremities (Primary Dx) [...] Description 07/12/2025 2:00 PM EST Office Visit [facility] OPTOMETRY [address] [place], [place] [phone] Raina Hathaway OD [address] [place] [address] documented as of this encounter Visit Diagnoses Diagnosis Neuropathy involving both lower extremities- Primary documented in this encounter Additional Health Concerns Assessment Noted Time PHQ-9 Depression Total Score: 9 08/19/19 23 11:05 AM EST documented as of this encounter Care Teams Iron Carrier Relationship Specialty Start Date End Date Shannon Ordaz MD [address] [place] [address] PCP - General Family Medicine 06/11/19 Benjie Pineda FNP [address] [place] [address] Nurse Practitioner Family Medicine 05/23/23 [facility] 04/25/24 05/03/24 [facility] 08/28/24 marco 11/23/24 documented as of this encounter
--- OUTSIDE RECORDS SUMMARY | 2025-06-12 11:52 | XMS_ITS | Clinical Summary ---
Author Organization [employer] Address [address] [facility] 7t [place] [address] Care Team Providers Care Patient Monitor Name Role Phone Brooks Smith MD Primary Care Provider + Benjie Pineda Unavailable Unavailable Allergies Active Allergy Reactions Criticality Noted Date Comments Vortioxetine 08/27/2020 Other reaction(s): Itching Medications * This document contains information received from the source organization and may not represent a complete record from that organization. betamethasone valerate (Valisone) 0.1 % ointmentIndication s:Lichen planus Apply topically if needed in the morning and at bedtime (dryness). 45 g 2 11/17/19 23 Active Anoro Ellipta 62.5-25 MCG/ACT aerosol powder INHALE 1 PUFF EVERY DAY AT THE SAME TIME 12/18/19 23 Active bumetanide (Bumex) 1 MG tablet Take 1 mg by mouth in the morning. 08/04/19 24 Active liver oil-zinc oxide (Desitin) 40 % ointment Apply topically if needed for irritation. 56 g 10/17/19 24 Active polyvinyl alcohol (Liquifilm Tears) 1.4 % ophthalmic solution INSTILL 1 DROP INTO THE AFFECTED EYE(S) FIVE TIMES DAILY 11/11/19 24 Active albuterol 1.25 MG/3ML nebulizer solutionIndication s:Moderate persistent asthma with acute exacerbation Take 3 mL (1.25 mg) by nebulization every 6 (six) hours if needed for wheezing. 75 mL 3 01/17/20 24 Active albuterol 108 (90 Base) MCG/ACT inhaler Inhale 2 puffs every 4 (four) hours if needed for wheezing or shortness of breath. 18 g 1 01/17/20 24 Active carvedilol (Coreg) 3.125 MG tablet Take 1 tablet by mouth with breakfast and with evening meal. Active Blood Pressure Monitoring (Blood Pressure Cuff) misc Use daily as prescribed 1 each 04/03/20 24 Active lidocaine (Lidoderm) 5 % patchIndications:P ain in rib Apply 1 patch topically Once per day. Remove & discard patch within 12 hours or as directed by MD. 30 patch 1 04/19/20 24 Active Aspirin Low Dose 81 MG EC tabletIndications: TIA (transient ischemic attack) TAKE 1 TABLET BY MOUTH EVERY MORNING 90 tablet 3 5 10:15 AM EST 08/07/19 25 Active omeprazole (PriLOSEC) [address] capsule Take 1 capsule by mouth Once per day. 06/25/20 24 Active ketorolac (Acular) 0.5 % ophthalmic solution INSTILL 1 DROP AFFECTED EYE(S) THREE TIMES DAILY STARTING 2 DAYS BEFORE SURGERY, CONTINUE DIRECTED 07/17/19 25 Active brimonidine (AlphaGAN) 0.2 % ophthalmic solution Administer 1 drop into the right eye 3 times daily. 08/08/19 25 Active triamcinolone (Kenalog) 0.1 % cream Apply topically if needed in the morning and at bedtime (pain and swelling). 30 g 2 09/05/19 25 Active gabapentin (Neurontin) 600 MG tabletIndications: Anxiety and depression TAKE 1 TABLET BY MOUTH TWICE DAILY IN THE MORNING AND AT BEDTIME 60 tablet 11 5 11:20 AM EST 01/18/20 25 Active mirtazapine (Remeron) 15 MG tablet Take 1 tablet (15 mg) by mouth if needed each day (anxiety). 30 tablet 11 01/18/20 25 Active mirtazapine (Remeron) 45 MG tablet TAKE 1 TABLET BY MOUTH AT BEDTIME 30 tablet 11 5 3:43 PM EST 01/22/20 25 Active naloxone (Narcan) 4 mg/0.1 mL nasal sprayIndications:L dulce-term current use of benzodiazepine Administer 1 spray (4 mg) into affected nostril(s) if needed for opioid reversal. May repeat every 2-3 minutes if needed, alternating nostrils, until medical assistance becomes available. 2 each 3 02/13/20 25 026 Active docusate sodium (Colace) 100 MG capsuleIndications :Slow transit constipation TAKE 1 CAPSULE BY MOUTH TWICE DAILY IN THE MORNING AND AT BEDTIME NEEDED FOR CONSTIPATION 180 capsule 1 03/06/20 25 Active lisinopril 10 MG tabletIndications: Hypertensive emergency TAKE 1 TABLET BY MOUTH EVERY MORNING 90 tablet 1 5 11:20 AM EST 03/06/20 25 Active buPROPion XL (Wellbutrin XL) 150 MG 24 hr tabletIndications: Major depressive disorder, recurrent episode with mood-congruent psychotic features (CMS/HCC) (HCC) TAKE 1 TABLET BY MOUTH EVERY MORNING 30 tablet 1 5 10:15 AM EST 03/29/20 25 Active atorvastatin (Lipitor) 10 MG tabletIndications: Mixed hyperlipidemia TAKE 1 TABLET BY MOUTH AT BEDTIME 90 tablet 3 04/04/20 25 Active LORazepam (Ativan) 0.5 MG tabletIndications: Major depressive disorder, recurrent episode with mood-congruent psychotic features (CMS/HCC) (HCC) TAKE 1 TABLET BY MOUTH AT BEDTIME NEEDED FOR ANXIETY 28 tablet 04/19/20 25 Active Active Problems Patient Care Coordination No te Formatting of this note migh t be different from the original. C3/CM Shiloh Leonardo RN Problem Noted Date Diagnosed Date Encounter for cervical Pap smear with pelvic exa m 06/02/2025 Assessment & Plan (06/02/2025 6:28 PM EST): Pelvic exam today w ?cervicitis FU pap smear results/HPV/STI testing and will call back PRN positive results or FU in 3 months Pt feels safe at home no concern for DV/STDs Counseled regarding STI prevention If today's pap smear/co testing is normal , she wont need addtl PAP smear for screening purposes Cervicitis 06/02/2025 Assessment & Plan (06/02/2025 6:28 PM EST): ?BV fu vag swab results and treat accordingly RO atrophic cervicitis. FAUSTO (generalized anxiety disorder) 02/26/2025 Long-term current [...] prevent accidents at home. She has a ELEVATOR SERVICE MECHANIC to help with ADLs, I told patient to avoid any activity that can put her at risk , that otherwise is to be assisted by ELEVATOR SERVICE MECHANIC . Anemia 02/13/2024 Assessment & Plan (01/17/2025 [...] stable. I tld her to call back [facility] clinic to [...] in 3m Dependence on nocturnal oxygen therapy 3 Assessment & Plan (06/17/2023 10:46 AM EST): [...] continue advair 500 BID and fu with brands editor use ProAir once per day, may need [...] evaluation. 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 05/24/2022 09/04/2024 Chest pain on breathing 05/24/2022 05/ Elevated blood-pressure read ing without diagnosis of hypertension 05/24/2022 08/13/2023 Assessment & Plan (03/02/2023 1:15 PM EDT): Patient has essential htn Hematochezia 05/24/2022 01/17/2025 Hypertensive emergency 05/24/202208/13 Snoring 05/24/2022 11/23/2024 Wakes up during night 05/24/20222024 Encounters Date Type Department Care Team Description 06/05/2025 Orders Only GENERIC EXTERNAL DATA DEPARTMENT Provider, Generic External Data 04/17/2025 10:30 AM EDT Clinical Support [facility] [address] [place] [address] Kierra Carbajal RN Long-term current use of benzodiazepine (Primary Dx) 04/17/2025 Travel 04/16/2025 Refill [facility] [address] [place] [address] Brooks Smith MD Major depressive disorder, recurrent episode with mood-congruent psychotic features (CMS/HCC) ([facility]) 04/16/2025 Refill [facility] [address] [place] [address] Brooks Smith MD Major depressive disorder, recurrent episode with mood-congruent psychotic features (CMS/HCC) ([facility]) 04/13/2025 Refill [facility] [address] [place] [address] Brooks Smith MD 04/04/2025 Refill [facility] [address] [place] [address] Brooks Smith MD Mixed hyperlipidemia 04/04/2025 Refill [facility] [address] [place], [place] [phone] Brooks Smith MD Mixed hyperlipidemia 03/29/2025 Refill [facility] [address] [place] [address] Gabrielle Howard MD Major depressive disorder, recurrent episode with mood-congruent psychotic features ([facility]/HCC) (HCC) 03/28/2025 Orders Only [facility] [address] [place] [phone] Brooks Smith MD 03/26/[address] [address] Brooks Smith MD verbal orders 03/22/2025 11:30 AM EDT Procedure Visit [address] [address] Brooks Smith MD Encounter for cervical Pap smear with pelvic exam (Primary Dx); Cervicitis; Subacute vaginitis; Encounter for vaccination 03/22/2025 Orders Only [address] [address] Brooks Smith MD 03/22/2025 Travel 03/21/[address] [address] Brooks Smith MD chart prep 03/18/2025 10:30 AM EDT Clinical Support [address] [address] Kierra Carbajal RN Long-term current use of benzodiazepine (Primary Dx) 03/18/[address] [address] Kierra Carbajal RN Major depressive disorder, recurrent episode with mood-congruent psychotic features ([facility]/HCC) 03/18/2025 Travel from Last 3 Months Immunizations Immunization [...] Description 07/12/2025 2:00 PM EST Office Visit [facility] [address] [place] [address] Raina Hathaway, OD [address] [place] [address] Health Maintenance Due Date Last Done Comments CT Colonography 1960 FIT DNA/Cologuard 1960 FIT 1960 FOBT 1960 Sigmoidoscopy 1960 Hepatitis C Screening 1976 RSV Patients and Patients Aged 60 years or older (1 - Risk 50-74 years 1-dose series) 2008 Influenza Vaccine (#1) 2025 , 05/14/2022, 09/24/2021, Additional history exists COVID-19 Vaccine (2024- season) 2025 03/22/2025, 11/25/2020, 10/29/2020 Mammogram 12/06/2025 [...] Blood Pressure 166/80(2024 12:02 PM EDT) No Tristen-Yanet Lambert, PharmD Record your blood pressure once per day Blood Pressure No Tristen-Yanet Lambert, PharmD Take your medication every day Lifestyle No Evangelistas-Gambl e, Yanet, PharmD Procedures Procedure Name Priority Date/Time Associated Diagnosis Comments CREATININE, SERUM Routine 06/05/2025 10: 45 AM EST UREA NITROGEN (BUN) Routine 06/05/2025 1 0:45 AM EST ELECTROLYTE PANEL Routine 06/05/2025 10: 45 AM EST PROTEIN CREATININE RATIO, URINE Routine 06/05/2025 10:38 AM EST POCT YANIRA-14 URINE DRUG SCREEN Routine 04/17/2025 [...] to Health Maintenance Results * Creatinine, Serum (06/05/2025 10:45 AM EST) Only the most recent of2 resultswithin the time period is included. Creatinine, Serum 1.03 0.5 - 1.4 mg/dL [facility] Estimated Glomerular Filt Rate 54 [facility] Comment:Chronic Kidney Disea se: Estimated GFR < 60 mL/min/1.83c9Gwnbcd Kidney Disease: Estimated GFR < 15 mL/min/1.73m2 06/05/2025 10:4 5 AM EST 06/05/2025 10:45 AM EST Generic External Data Provider LAB BLOOD ORDERAB LES Final Result Performing Organization Address [facility] de Phone Number [facility] [address] [place] [phone] * BUN (Blood Urea Nitrogen) (06/05/2025 10:45 AM EST) Only the most recent of2 resultswithin the time period is included. Urea Nitrogen (BUN) 15 9 - 16 mg/dL [facility] 06/05/2025 10:4 5 AM EST 06/05/2025 10:45 AM EST Generic External Data Provider LAB BLOOD ORDERAB LES Final Result Performing Organization Address [facility] de Phone Number [facility] [address] [place] [phone] * (ABNORMAL) Electrolyte Panel (06/05/2025 10:45 AM EST) Only the most recent of2 resultswithin the time period is included. Sodium 141 135 - 145 mmol/L [facility] Potassium 4.7 3.3 - 5.1 mmol/L [facility] Chloride 108 96 - 108 mmol/L [facility] Carbon Dioxide 30(H) 22 - 29 mmol/L [facility] Anion Gap 8(L) 12 - 20 [facility] 06/05/2025 10:4 5 AM EST 06/05/2025 10:45 AM EST Generic External Data Provider LAB BLOOD ORDERAB LES Final Result Performing Organization Address [facility] Co de Phone Number [facility] [address] [place] [phone] * Protein Creatinine Ratio, Urine (06/05/2025 10:38 AM EST) Only the most recent of2 resultswithin the time period is included. Creatinine, Urine 64.64 mg/dL [facility] Protein, Total, Random Urine <7 <12 mg/dL [facility] Protein/Creatin ine Ratio, Ur TNP <0.2 [facility] Comment:Unable to calculate urine protein creatinine ratio due tolow creatinine or protein result. 06/05/2025 10:3 8 AM EST 06/05/2025 11:04 AM EST Generic External Data Provider LAB URINE ORDERAB LES Final Result Performing Organization Address [facility] de Phone Number [facility] [address] [place] [phone] * (ABNORMAL) POCT YANIRA-14 Urine Drug Screen (04/17/2025 10:50 AM EDT) Only the most recent of2 resultswithin the time period is included. THC Negative Negative Cocaine Screen, Urine Negative Negative Opiate Screen, Urine Negative Negative Methamphetamine Screen Urine Negative Negative Amphetamine Screen, Urine Negative Negative Benzodiazepines Screen, Urine Positive(A) Negative Comment:EDGE BASTER pt on Lorazepam Barbiturate Screen, Urine Negative Negative Methadone Screen, Urine Negative Negative Buprenophine Screen, Urine Negative Negative TCA, Urine Positive(A) Negative MDMA Urine Negative Negative ng/mL Oxycodone Screen, Urine Negative Negative Phencyclidine (PCP), Urine Negative Negative Propoxyphene, Urine Negative Negative Fentanyl, Urine Negative Negative Urine Urine specimen obtained by clean catch procedure / Unknown 04/17/2025 10:50 AM EDT Kierra Chance RN - 04/17/2025 10:50 AM EDT UTOX cup Lot#[id number] Exp. 04/02/26 Internal Pass Control Brooks Smith MD POINT OF CARE TEST ENTER /EDIT ORDERABLES Final Result * Hold Lavender - Possible Hematology (03/28/2025 3:05 PM EDT) Hold Lavender - Possible Hematololgy SEE NOTE [facility] Comment:Specimen will be hel d untested for 8 hours. Call Hematologyif testing is desired. 03/28/2025 3:05 PM EDT 03/28/2025 4:22 PM EDT Brooks Smith MD HISTORICAL/NON ORDERABLE LABS Final Result [facility] [address] [place] [phone] * HPV DNA, Low/High Risk (03/22/2025 12:12 PM EDT) HPV High Risk Negative Negative [facility] HPV Genotype 16 Negative Negative [facility] HPV Genotype 18 Negative Negative [facility] Comment:HPV testing performe d at [facility] (CLIA#[id number]), [address] [place] [address].Testing for HPV was performed using the Santos [...] MD LAB BLOOD ORDERABLES Fin al Result [facility] [address] [place] [phone] * Pap Smear (03/22/2025 12:12 PM EDT) Swab Cervical swab / Unknown 03/22/2025 12:12 PM EDT 03/25/2025 6:37 AM EDT Rico [facility] - 03/28/2025 10:49 AM EDT ----- ------- Name: Gabrielle Street Age/Sex: 64/F : 1960 Unit#: [id number] Attend Dr: Re03/22/25 Status: PRE [facility] Location: [facility] Disch: ----- ------- SPEC : [id number] RECD: 03/25/25 STATUS: CATRINA WANG NUM: [id number] SINGH: 03/22/25-[address] [facility] [address]: Brooks Smith MD ENTERED: 03/25/25 [...] CYTOLOGY ORDERABLES Final Result Performing Organization Address [facility] Co de Phone Number [facility] [address] [place], [place] [phone] * BI Mammogram Screening Tomosynthesis Bilateral (12/06/2024) Anatomical Region Laterality Modality Breast Bilateral Mammography Brooks Smith MD IMG BI PROCEDURES Final Result * (ABNORMAL) Hm Colonoscopy (07/19/2023) Colonoscopy Abnormal(A ) Normal [facility] Comment:TA Brooks Smith MD HEALTH MAINTENANCE Edite d Result - Final Performing Organization Address [facility]/ZIP Co de Phone Number [facility] [address] [place], [place] [phone] * Lipid Panel with Reflex to Direct LDL (06/02/2023 11:15 AM EST) Triglycerides 80 <150 mg/dL [facility] Comment:Desirable Triglyceri de: less than 150 mg/dLBorderline High Triglyceride 150-199 mg/dLHigh Triglyceride: 200-499 mg/dLVery High Triglyceride: greater than or equal to 5OO mg/dL Cholesterol 149 <200 mg/dL [facility] Comment:Desirable Cholestero l: less than 200 mg/dLBorderline High Cholesterol: 200-239 mg/dLHigh Cholesterol: greater than 239 mg/dL LDL Cholesterol Calculated 76 <100 mg/dL [facility] Comment:Desirable LDL: less than 100 mg/dLNear Optimal/Above Optimal LDL: 110- 129 mg/dLBorderline High LDL: 130-159 mg/dLHigh LDL: 160-189 mg/dLVery High LDL: greater than or equal to 190 mg/dL HDL Cholesterol 57 >40 mg/dL [facility] Comment:Desirable HDL: great er than 40 mg/dL Note: This HDL assay may give artificially low results in patients with liver disease. Blood 06/02/2023 11:1 5 AM EST 06/02/2023 1:19 PM EST Brooks Smith MD LAB BLOOD ORDERABLES Fin al Result [facility] [address] [place] [phone] from Last 3 Months or Most Recently Relevant to Health Maintenance Insurance [facility] STANDARD MEDICARE Care Teams Patient Monitor Relationship Specialty Start Date End Date Brooks Smith MD [address] [place] [address] PCP - General Family Medicine 06/11/19 Benjie Pineda FNP [address] [place] [address] Nurse Practitioner Family Medicine 05/23/23 [facility] 08/28/24 marco 11/23/24
--- OUTSIDE RECORDS SUMMARY | 2025-06-12 11:52 | XMS_ITS | Encounter Summary ---
Author Organization [employer] Address [address] [facility] 7t [place] [address] Care Team Providers Care Extension Service Supervisor Name Role Phone Shannon Ordaz MD Primary Care Provider + Benjie Pineda Unavailable Unavailable Reason for Visit * Reason Onset Date Comments Medication Question 11/16/2022 Encounter Details Date Type Department Care Team ([facility] st Contact Info) Description 11/16/2022 Telephone [facility] [address] [place], [place] [phone] Shannon Ordaz MD [address] [place], [place] [phone] Medication Question Social History Tobacco Use Types [...] were discussed however meditech reviewed and 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 * Telephone Encounter - [place] [...] Description 07/12/2025 2:00 PM EST Office Visit [facility] [address] [place] [address] Raina Hathaway, OD [address] [place] [address] documented as of this encounter Visit Diagnoses Not on filedocumented in this encounter Additional Health Concerns Assessment Noted Time PHQ-9 Depression Total Score: 12 023 11:08 AM EDT documented as of this encounter Care Teams Extension Service Supervisor Relationship Specialty Start Date End Date Shannon Ordaz MD [address] [place] [address] PCP - General Family Medicine 06/11/19 Benjie Pineda FNP [address] [place] [phone] Nurse Practitioner Family Medicine 05/23/23 [facility] 04/25/24 05/03/24 [facility] 08/28/24 marco 11/23/24 documented as of this encounter
--- OUTSIDE RECORDS SUMMARY | 2025-06-12 11:52 | XMS_ITS | Encounter Summary ---
Author Organization [employer] Address [address] [facility] [address] [place] [address] Care Team Providers Care Cloth Painter Name Role Phone Shannon Ordaz MD Primary Care Provider + Benjie Pineda Unavailable Unavailable Reason for Visit * Reason Onset Date Comments Med Refill 02/21/2025 Encounter Details Date Type Department Care Team (Late st Contact Info) Description 02/21/2025 Refill [facility] [address] [place], [place] [phone] Shannon Ordaz MD [address] [place], [place] [phone] Major depressive disorder, recurrent episode with mood-congruent [...] Description 07/12/2025 2:00 PM EST Office Visit [facility] [address] [place] [address] Rivas, Raina, OD [address] [place] [address] documented as of this encounter Goals Goal [...] documented as of this encounter Care Teams Cloth Painter Relationship Specialty Start Date End Date Shannon Ordaz MD [address] [place] [address] PCP - General Family Medicine 06/11/19 Benjie Pineda FNP [address] [facility] [address] Nurse Practitioner Family Medicine 05/23/23 [facility] 08/28/24 elara 11/23/24 documented as of this encounter
--- OUTSIDE RECORDS SUMMARY | 2025-06-12 11:52 | XMS_ITS | Encounter Summary ---
Author Organization [employer] Address [address] [facility] 7t [place] [address] Care Team Providers Care Environmental Technical Officer Name Role Phone Shannon Ordaz MD Primary Care Provider + Benjie Pineda Unavailable Unavailable Encounter Details Date Type Department Care Team (Late st Contact Info) Description 09/07/2024 Telephone [facility] [address] [place], [place] [phone] Shannon Ordaz MD [address] [place], [place] [phone] Social History Tobacco Use Types Packs/Day Years [...] Description 07/12/2025 2:00 PM EST Office Visit [facility] [address] [place] [address] Raina Hathaway, OD [address] [place] [address] documented as of this encounter Goals Goal [...] as of this encounter Care Teams Environmental Technical Officer Relationship Specialty Start Date End Date Shannon Ordaz MD [address] [place] [phone] PCP - General Family Medicine 06/11/19 Benjie Pineda FNP [address] [place] [phone] Nurse Practitioner Family Medicine 05/23/23 [facility] 08/28/24 marco 11/23/24 documented as of this encounter
--- OUTSIDE RECORDS SUMMARY | 2025-06-12 11:52 | XMS_ITS | Encounter Summary ---
Author Organization [employer] Address [address] [facility] [address] [place] [address] Care Team Providers Care Scourer Name Role Phone Shannon Ordaz MD Primary Care Provider + Benjie Pineda Unavailable Unavailable Reason for Visit * Reason Comments Med Refill Encounter Details Date Type Department Care Team ([facility] st Contact Info) Description 10/16/2024 Refill [facility] [address] [place], [place] [phone] Shannon Ordaz MD [address] [place], [place] [phone] Major depressive disorder, recurrent episode with mood-congruent [...] Description 07/12/2025 2:00 PM EST Office Visit [facility] [address] [place], [place] [phone] Raina Hathaway, OD [address] [place] [address] documented as of this encounter Goals Goal [...] documented as of this encounter Care Teams Scourer Relationship Specialty Start Date End Date Shannon Ordaz MD [address] [place] [address] PCP - General Family Medicine 06/11/19 Benjie Pineda FNP [address] [place] [address] Nurse Practitioner Family Medicine 05/23/23 [facility] 08/28/24 marco 11/23/24 documented as of this encounter
--- OUTSIDE RECORDS SUMMARY | 2025-06-12 11:52 | XMS_ITS | Clinical Summary ---
Author Organization [facility] Address [address] [place] [address] Phone Care Team Providers Care Relay Associate Name Role Phone Shannon Ordaz MD Primary Care Provider [phone] Allergies Active Allergy Reactions Criticality Noted Date [...] Date Diagnosed Date Resolved Date COPD exacerbation 11/20/2024 11/22/2024 ARF (acute renal failure) 08/22/2024 Surgical History Surgery Date Site/Laterality Comments STEREOTACTIC CORE BIOPSY Left Medical History Medical History Date Comments Asthma COPD (chronic obstructive pulmonary disease) (CM S/HCC V24, [facility]/HCC V28) Depression Hypercholesteremia Hypertension Peripheral neuropathy GERD (gastroesophageal reflux disease) Glaucoma CVA (cerebral vascular accident) (CMS/HCC V24, C [facility] V28) Family History Medical History Relation Name [...] 2025 11/25/2020, 10/29/2020 Influenza Vaccine (#1) 2025 , 05/14/2022, 09/24/2021, Additional history exists Falls Risk [...] Associated Diagnosis Comments BASIC METABOLIC PANEL STAT 12/25/2024 8:27 AM EDT MG MAMMO DIGITAL SCREENING W MAXIMILIAN BILAT Routine 12/06/2024 3:00 PM EDT Encounter for screening mammogram for malignant neoplasm of breast from Last 3 Months or Most Recently Relevant to Health Maintenance Results * (ABNORMAL) Basic metabolic panel (12/25/2024 8:27 AM EDT) Sodium 142 133 - 145 mmol/L LAB CHEMISTRY METHOD 12/25/2024 9:10 AM EDT [facility] Potassium 3.9 3.5 - 5.5 mmol/L LAB CHEMISTRY METHOD 12/25/2024 9:10 AM EDT [facility] Chloride 109 96 - 110 mmol/L LAB CHEMISTRY METHOD 12/25/2024 9:10 AM EDT [facility] CO2 26 21 - 32 mmol/L LAB CHEMISTRY METHOD 12/25/2024 9:10 AM [facility] Anion Gap 7 3 - 11 LAB CHEMISTRY METHOD 12/25/2024 9:10 AM [facility] Glucose 102(H) 70 - 100 mg/dL LAB CHEMISTRY METHOD 12/25/2024 9:10 AM [facility] BUN 12 5 - 25 mg/dL LAB CHEMISTRY METHOD 12/25/2024 9:10 AM [facility] Creatinine 1.30(H) 0.50 - 1.10 mg/dL LAB CHEMISTRY METHOD 12/25/2024 9:10 AM [facility] eGFR 45(L) >=60 mL/min/1. 73m2 LAB CHEMISTRY METHOD 12/25/2024 9:10 AM [facility] Comment:Calculation based on the Chronic Kidney Disease Epidemiology Collaboration (CKD-EPI) equation refit without adjustment for race. BUN/Creatinine Ratio 9.2 LAB CHEMISTRY METHOD 12/25/2024 9:10 AM [facility] Calcium 8.5 8.5 - 10.5 mg/dL LAB CHEMISTRY METHOD 12/25/2024 9:10 AM [facility] Blood Venous blood specimen / Unknown Venipuncture / Unknown 12/25/2024 8:27 AM EDT 12/25/2024 8:42 AM EDT us Keon Nunes DO LAB BLOOD ORDERABLES Final Result [facility] [address] [place] [address], [place] [phone] * MG Mammo Digital Screening w Maximilian [...] year. [facility]amm[facility] [address], [address] -------- FINAL REPORT -------- Dictated By: Otf Hoyos Dictated Date: 12/06/2024 16:51 ET Assigned Physician: Otf Hoyos Reviewed and Electronically Signed By: Otf Hoyos Signed Date: 12/06/2024 16:58 ET Workstation ID: [id number] Transcribed By: Self Edit Transcribed Date: 12/06/2024 16:51 ET Narrative 12/06/2024 4:58 PM EDT EXAM: SCREENING MAMMOGRAPHY, BILATERAL HISTORY: SCREENING. Family history of breast cancer, mother, maternal grandmother COMPARISON: None available TECHNIQUE: Synthesized CC and MLO projections of each breast. Tomosynthesis of each breast in the CC and MLO projections. ADDITIONAL IMAGING: None Computer-aided detection was employed with the Stratus5 AI 3-D. TISSUE DENSITY: There are scattered [...] None Computer-aided detection was employed with the Stratus5 AI 3-D. TISSUE DENSITY: There are scattered [...] year. [facility]amm[facility] location: [facility] [address] [place], [address] -------- FINAL REPORT -------- Dictated By: Otf Hoyos Dictated Date: 12/06/2024 16:51 ET Assigned Physician: Otf Hoyos Reviewed and Electronically Signed By: Otf Hoyos Signed Date: 12/06/2024 16:58 ET Workstation ID: [id number] Transcribed By: Self Edit Transcribed Date: 12/06/2024 16:51 ET Shannon Ordaz MD IMG BI PROCEDURES Final Resu lt from Last 3 Months or Most Recently Relevant to Health Maintenance Insurance MEDICAID - [place] MEDICARE Advance Directives Documents on File Type Date Recorded Patient Blood And Plasma Laboratory Assistant Expl [facility] Care Decision (hx) 04/26/2024 Anahi Pezrro AD SANDERSON DIRECTIVE * Full Code - [...] currently active code status orders. Care Teams Relay Associate Relationship Specialty Start Date End Date Shannon Ordaz MD [address] [place] [phone] PCP - General Internal Medicine 08/22/24
--- OUTSIDE RECORDS SUMMARY | 2025-06-12 11:53 | XMS_ITS | Encounter Summary ---
Author Organization [employer] Address [address] [facility] 7t [place] [address] Care Team Providers Care Poultry Farmworker Name Role Phone Shannon Ordaz MD Primary Care Provider + Benjie Pineda Unavailable Unavailable Reason for Visit * Reason Onset Date Comments Pre-op Exam 06/21/2024 Encounter Details Date Type Department Care Team ([facility] st Contact Info) Description 06/21/2024 Telephone [facility] MEDICINE [address] [place], [place] [phone] Shannon Ordaz MD [address] [place], [place] [phone] Pre-op Exam Social History Tobacco Use Types [...] Melita Stevenson - 06/21/2024 9:57 AM EST Cold Roll Packer Sheet Iron spoke with Melanie at [facility] and agreed to inform pt she is scheduled for pre op on 07/25/24 at 9AM with . Appointment reminder letter mailed Date of Surgery: 08/07/2024 and 08/23/2024 (right eye) Surgical procedure being done: Cataract Surgery Type of anesthesia: MAC Lab needed: No EKG: No Surgeon's name: Tino Falk Facility name: [facility] Surgeon's office number: [phone] Ext [phone] Surgeon's office fax number: [phone] Contact name (person you spoke with): Melanie Last office note from surgeon requested: No * Telephone Encounter - Watson Abdi - 06/21/2024 9:08 AM EST Date of Surgery: 08/07/2024 and 08/23/2024 (right eye) Surgical procedure being done: Cataract Surgery Type of anesthesia: MAC Lab needed: No EKG: No Surgeon's name: Tino Falk Facility name: [facility] Surgeon's office number: [phone] Ext [phone] Surgeon's office fax number: [phone] Contact name (person you spoke with): Melanie Last office note from surgeon requested: No Send Message to Melita Stevenson and Marc Apodaca documented in this encounter Plan of Treatment Upcoming Encounters Date Type Department Care Team (Late st Contact Info) Description 07/12/2025 2:00 PM EST Office Visit [facility] OPTOMETRY [address] [place], [place] [phone] Raina Hathaway, OD [address] [place] [address] documented as of this encounter Goals Goal [...] documented as of this encounter Care Teams Poultry Farmworker Relationship Specialty Start Date End Date Shannon Ordaz MD [address] [place] [address] PCP - General Family Medicine 06/11/19 Benjie Pineda FNP [address] [place] [address] Nurse Practitioner Family Medicine 05/23/23 [facility] 08/28/24 elara 11/23/24 documented as of this encounter
--- OUTSIDE RECORDS SUMMARY | 2025-06-12 11:53 | XMS_ITS | Encounter Summary ---
Author Organization [employer] Address [address] [facility] 7t [place] [address] Care Team Providers Care Die Cast Patternmaker Name Role Phone Shannon Ordaz MD Primary Care Provider + Benjie Pineda Unavailable Unavailable Reason for Visit * Reason Comments Med Refill Encounter Details Date Type Department Care Team ([facility] st Contact Info) Description 06/13/2024 Refill [facility] MEDICINE [address] [place], [place] [phone] Shannon Ordaz MD [address] [place], [place] [phone] Primary hypertension Social History Tobacco Use Types [...] 07/12/2025 2:00 PM EST Office Visit [facility] OPTOMETRY [address] [place], [place] [phone] Raina Hathaway, OD [address] [place] [address] documented as of this encounter Goals Goal [...] as of this encounter Care Teams Die Cast Patternmaker Relationship Specialty Start Date End Date Shannon Ordaz MD [address] [place] [address] PCP - General Family Medicine 06/11/19 Benjie Pineda FNP [address] [place] [address] Nurse Practitioner Family Medicine 05/23/23 [facility] 08/28/24 marco 11/23/24 documented as of this encounter
--- OUTSIDE RECORDS SUMMARY | 2025-06-12 11:53 | XMS_ITS | Encounter Summary ---
Author Organization [employer] Address [address] [facility] 7t [place] [address] Care Team Providers Care Order Control Clerk Blood Bank Name Role Phone Shannon Ordaz MD Primary Care Provider + Benjie Pineda Unavailable Unavailable Reason for Visit * Reason Comments Med Refill Encounter Details Date Type Department Care Team ([facility] st Contact Info) Description 12/07/2024 Refill [facility] MEDICINE [address] [place], [place] [phone] Shannon Ordaz MD [address] [place], [place] [phone] Anxiety and depression Social History Tobacco Use [...] 2:00 PM EST Office Visit [facility] OPTOMETRY [address] [place] [address] Raina Hathaway, OD [address] [place] [address] documented as of this encounter Goals Goal [...] documented as of this encounter Care Teams Order Control Clerk Blood Bank Relationship Specialty Start Date End Date Shannon Ordaz MD [address] [place] [address] PCP - General Family Medicine 06/11/19 Benjie Pineda FNP [address] [place] [address] Nurse Practitioner Family Medicine 05/23/23 [facility] 08/28/24 marco 11/23/24 documented as of this encounter
--- OUTSIDE RECORDS SUMMARY | 2025-06-12 11:53 | XMS_ITS | Encounter Summary ---
Author Organization [employer] Address [address] [facility] 7t [place] [address] Care Team Providers Care Metals Analyst Name Role Phone Shannon Ordaz MD Primary Care Provider + Benjie Pineda Unavailable Unavailable Reason for Visit * Reason Comments Med Refill Encounter Details Date Type Department Care Team ([facility] st Contact Info) Description 12/10/2024 Refill [facility] MEDICINE [address] [place], [place] [phone] Shannon Ordaz MD [address] [place], [place] [phone] Major depressive disorder, recurrent episode with mood-congruent [...] Description 07/12/2025 2:00 PM EST Office Visit [facility] OPTOMETRY [address] [place], [place] [phone] Raina Hathaway, OD [address] [place] [address] documented as of this encounter Goals Goal [...] documented as of this encounter Care Teams Metals Analyst Relationship Specialty Start Date End Date Shannon Ordaz MD [address] [place] [address] PCP - General Family Medicine 06/11/19 Benjie Pineda FNP [address] [place] [address] Nurse Practitioner Family Medicine 05/23/23 [facility] 08/28/24 marco 11/23/24 documented as of this encounter
== END 2025-06-12 10:12 | disposition home or self-care (01) ==
LOC: HO.HKA 09:54
PROVIDERS: PCP Internal Medicine; Visit Provider Internal Medicine Nephrology
DX: I10 Essential (primary) hypertension (principal); N18.31 Chronic kidney disease, stage 3a
CPT/HCPCS: 99214

== ENCOUNTER → 2025-06-12 09:54 | Outpatient (BNVA) | payer MEDICARE, MEDICAID, SELFPAY | PROVIDERS: PCP Internal Medicine; Visit Provider Internal Medicine Nephrology | DX: N18.31 Chronic kidney disease, stage 3a (principal); I10 Essential (primary) hypertension | CPT/HCPCS: 99212 ==

== ENCOUNTER 2025-06-26 09:45 | Outpatient (AMB) | payer MEDICARE, MEDICAID, SELFPAY ==
--- OUTSIDE RECORDS SUMMARY | 2019-01-11 04:57 | XMS_ITS | Continuity of Care Document ---
Demographics Address [address] [place] [address] Mobile Phone Home Phone Preferred Language es Marital Status Legally Mormonism Affiliation Advent (non-Cat holic, non-specific) Race White Ethnic Group or Author Organization [facility] Address [address] [address] Phone Care Team Providers Care Electrician Assistant Name Role Phone Calin Dye DO Unavailable Unavailable Advance Directives Directive Yes / No Effective Date File Name No Information Encounters Encounter Description Practice Location Reason(s) For Visit Diagnoses Date Provider [facility], [address] [place] [address], [id number], [place] tel:[phone] [address] [place] [address] No Information 2018 Hardik Layton. [address] [place] [address], [id number], [place]. tel:[phone] Family History Family Member Type Diagnosis Age At Onset No Information Payers Payer name Insurance type Covered democrat ID Authoriza tion(s) No Information Social History Type Description Quantity Date Captured Comments Sex Female Smoking Status No Information Chief Complaint And Reason For Visit No Information History Of Present Illness Encounter Date Complaint History Of Prese nt Illness No Information Instructions Date Instruction Additional Infor mation No Information Assessments Type Assessment Date No Information
--- NOTE | 2025-06-26 09:52 | A.OFFVIS_ITS ---
Vital Signs 06/26/25 09:53 Height 5 ft Weight 180 lb BMI 35.2 BP 112/64 Blood Pressure Location Rt brachial Position Sitting Pulse 86 Pulse Source Pulse Oximeter Pulse Oximetry (%) 97 Oxygen Delivery Method Room Air Intake Visit Reasons: Asthma Allergies No Known Allergies (No Known Allergies*) Allergy (Verified 06/12/25 10:01) HPI HPI Asthma: Details: 64-year-old lady, former 60 pack year smoker, quit 2008, with underlying history of diastolic heart failure, prior normal sleep study, now followed for nocturnal hypoxemia and COPD.? She has been using Anoro and albuterol MDI with reasonable control of her symptoms. Her orthopnea symptoms also better controlled after starting additional metolazone to her usual Bumex regimen. [facility] Medical History Chronic constipation History of colon polyps Internal hemorrhoids CVA (cerebral vascular accident) Abdominal pain Barretts esophagus Acid reflux Dyspnea Depression Anxiety Hypertension COPD (chronic obstructive pulmonary disease) Surgical History Hx of colonoscopy History of esophagogastroduodenoscopy (EGD) H/O section History of appendectomy History of cholecystectomy Family History Mother Cancer Maternal Grandmother Cancer Social History Household Members: None Alcohol intake: never Patient Tobacco Use Status: Never used Tobacco Current occupational status: disabled Review of Systems Const Denies daytime sleepiness, Denies excessive sweating, Denies fatigue, Denies fever(s), Denies lethargy, Denies malaise, Denies night sweats, Denies snoring and Denies weight loss Eyes Denies blurry vision and Denies itchy eyes ENT Denies nasal congestion, Denies post nasal drip, Denies sinus pain, Denies sinus pressure and Denies other ( Thrush) Card Denies chest pain, Denies pedal edema, Denies dyspnea, Denies orthopnea and Denies paroxysmal nocturnal dyspnea Resp Denies cough, Denies hemoptysis, Denies excessive phlegm production, Denies dyspnea, Denies snoring and Denies wheezing GI Denies abdominal pain and Denies heartburn Musc Denies myalgias, Denies arthralgias and Denies joint swelling Skin/Breast Denies rash Neuro Denies memory loss and Denies seizure-like activity Psych Denies abnormal sleep pattern, Denies anxiety and Denies memory loss Endo Denies excessive sweating, Denies fatigue and Denies heat intolerance Zhen/Lymph Denies easy bruising Aller/Immun Denies itchy eyes, Denies seasonal rhinorrhea and Denies wheezing Physical Exam Vital Signs: Last Vital Signs Pulse 86 06/26/25 09:53 BP 112/64 06/26/25 09:53 Pulse Ox 97 06/26/25 09:53 Oxygen Delivery Method Room Air 06/26/25 09:53 BMI result Body Mass Index 35.2 Const General: no acute distress and alert Nutritional Appearance: not obese Orientation/consciousness: Other orientation findings ( oriented) HEENT Head: Yes atraumatic Eyes General: appearance normal, both eyes and all related structures Sclerae: sclerae normal EOM: EOMs intact bilaterally Neck Neck: Yes supple Lymphatic: no lymphadenopathy noted Resp Effort & Inspection: normal respiratory effort and no use of accessory muscles Auscultation: clear to auscultation bilaterally Cardio Rate: regular rate Rhythm: regular rhythm Heart sounds: no gallops, no murmurs and no rubs Skin General skin exam: other ( warm) Extrem General: No clubbing, No cyanosis and Yes edema (Trace bilateral) Assessment & Plan Assessment & Plan (1) COPD (chronic obstructive pulmonary disease): Code(s): J44.9 - Chronic obstructive pulmonary disease, unspecified Category: Medical Plan: Controlled on current regimen of Anoro and albuterol MDI. Continue current regimen. (2) Dyspnea on exertion: Code(s): R06.09 - Other forms of dyspnea Category: Medical Plan: Improved control after add metolazone to Bumex. Continue current regimen. Coding Level of Care Code Est Pt Level 4 (82882) Diagnoses COPD (chronic obstructive pulmonary disease) J44.9 Dyspnea on exertion R06.09
[2025-06-26 09:53] VITALS: BP 112/64; PULSE 86; O2SAT 97; BMI 35.2
--- OUTSIDE RECORDS SUMMARY | 2025-06-26 10:22 | XMS_ITS | Encounter Summary ---
Author Organization [employer] Address [address] [facility] 7t [place] [address] Care Team Providers Care Rubber Flap Cutter Name Role Phone Shannon Ordaz MD Primary Care Provider + Benjie Pineda Unavailable Unavailable Encounter Details Date Type Department Care Team (Late st Contact Info) Description 04/24/2024 Orders Only [facility] [address] [place] [address] ProviderYarelis MD Social History Tobacco Use Types [...] Office Visit [facility] OPTOMETRY [address] [place] [address] RivasRaina, OD [address] [place] [address] documented as of this encounter Goals Goal [...] documented as of this encounter Care Teams Rubber Flap Cutter Relationship Specialty Start Date End Date Shannon Ordaz MD [address] [place] [address] PCP - General Family Medicine 06/11/19 Benjie Pineda FNP [address] [place] [address] Nurse Practitioner Family Medicine 05/23/23 [facility] 04/25/24 05/03/24 [facility] 08/28/24 marco 11/23/24 documented as of this encounter
--- OUTSIDE RECORDS SUMMARY | 2025-06-26 10:22 | XMS_ITS | Encounter Summary ---
Author Organization [employer] Address [address] [facility] 7t [place] [address] Care Team Providers Care Outsole Splicer Name Role Phone Shannon Ordaz MD Primary Care Provider + Benjie Pineda Unavailable Unavailable Reason for Visit * Reason Comments Med Refill Encounter Details Date Type Department Care Team ([facility] st Contact Info) Description 02/20/2025 Refill [facility] MED & PEDS [address] [place], [place] [phone] Shannon Ordaz MD [address] [place] [address] Major depressive disorder, recurrent episode with mood-congruent [...] 2:00 PM EST Office Visit [facility] OPTOMETRY [address] [place] [address] Rivas, Raina, OD [address] [place] [address] documented as of this encounter Goals Goal [...] documented as of this encounter Care Teams Outsole Splicer Relationship Specialty Start Date End Date Shannon Ordaz MD [address] [place] [address] PCP - General Family Medicine 06/11/19 Benjie Pineda FNP [address] [place] [address] Nurse Practitioner Family Medicine 05/23/23 [facility] 08/28/24 marco 11/23/24 documented as of this encounter
--- OUTSIDE RECORDS SUMMARY | 2025-06-26 10:22 | XMS_ITS | Encounter Summary ---
Author Organization [employer] Address [address] [facility] 7t [place] [address] Care Team Providers Care Theatrical Trouper Name Role Phone Shannon Ordaz MD Primary Care Provider + Benjie Pineda Unavailable Unavailable Reason for Visit * Reason Onset Date Comments FYI 03/22/2024 Encounter Details Date Type Department Care Team ([facility] st Contact Info) Description 03/22/2024 Telephone [facility] MEDICINE [address] [place], [place] [phone] Shannon Ordaz MD [address] [place], [place] [phone] FYI Social History Tobacco Use Types Packs/Day [...] 8:53 AM EDT Tc from [facility] at [facility] calling to inform the provider attempted to start services on 03/22 however patient refused due to having a Cardiology appt will re attempt on 03/23 to start services documented in this encounter Plan of Treatment Upcoming Encounters Date Type Department Care Team (Late st Contact Info) Description 07/12/2025 2:00 PM EST Office Visit [facility] OPTOMETRY [address] [place] [address] Raina Hathaway, OD [address] [place] [address] documented as of this encounter Goals Goal Patient Goal Type Associated Problems Recent Progress Patient-Stated? Author Blood Pressure < 140/90 Blood Pressure 166/80(2024 12:02 PM EDT) No Piers-Ynaet Lambert PharmD Record your blood pressure once per day Blood Pressure No Yanet Tse PharmD Take your medication every day Lifestyle No Yanet Tse PharmD documented as of this encounter Visit Diagnoses Not on filedocumented in this encounter Additional Health Concerns Assessment Noted Time PHQ-9 Depression Total Score: 2 11/15/19 24 11:12 AM EDT documented as of this encounter Care Teams Theatrical Trouper Relationship Specialty Start Date End Date Shannon Ordaz MD [address] [place] [address] PCP - General Family Medicine 06/11/19 Benjie Pineda FNP [address] [place] [address] Nurse Practitioner Family Medicine 05/23/23 [facility] 04/25/24 05/03/24 [facility] 08/28/24 marco 11/23/24 documented as of this encounter
--- OUTSIDE RECORDS SUMMARY | 2025-06-26 10:22 | XMS_ITS | Encounter Summary ---
Author Organization [employer] Address [address] [facility] 7t [place] [address] Care Team Providers Care Automatic Equipment Technician Name Role Phone Shannon Ordaz MD Primary Care Provider + Benjie Pineda Unavailable Unavailable Reason for Visit * Reason Onset Date Comments Medication Question 11/16/2022 Encounter Details Date Type Department Care Team ([facility] st Contact Info) Description 11/16/2022 Telephone [facility] MEDICINE [address] [place], [place] [phone] Shannon Ordaz MD [address] [place], [place] [phone] Medication Question Social History Tobacco Use Types [...] were discussed however meditech reviewed and pt.'s center maker hand prescribes them. * Telephone Encounter - [place] [...] Description 07/12/2025 2:00 PM EST Office Visit [facility] OPTOMETRY [address] [place] [address] Raina Hathaway, OD [address] [place] [address] documented as of this encounter Visit Diagnoses Not on filedocumented in this encounter Additional Health Concerns Assessment Noted Time PHQ-9 Depression Total Score: 12 023 11:08 AM EDT documented as of this encounter Care Teams Automatic Equipment Technician Relationship Specialty Start Date End Date Shannon Ordaz MD [address] [place] [address] PCP - General Family Medicine 06/11/19 Benjie Pineda FNP [address] [place] [address] Nurse Practitioner Family Medicine 05/23/23 [facility] 04/25/24 05/03/24 [facility] 08/28/24 marco 11/23/24 documented as of this encounter
--- OUTSIDE RECORDS SUMMARY | 2025-06-26 10:22 | XMS_ITS | Encounter Summary ---
Author Organization [employer] Address [address] [facility] 7t [place] [address] Care Team Providers Care Microelectronics Engineer Name Role Phone Shannon Ordaz MD Primary Care Provider + Benjie Pineda Unavailable Unavailable Reason for Visit * Reason Comments Med Refill Encounter Details Date Type Department Care Team ([facility] st Contact Info) Description 04/13/2025 Refill [facility] MEDICINE [address] [place], [place] [phone] Shannon Ordaz MD [address] [place], [place] [phone] Social History Tobacco Use Types Packs/Day Years [...] Description 07/12/2025 2:00 PM EST Office Visit [facility] OPTOMETRY [address] [place], [place] [phone] Raina Hathaway, OD [address] [place] [address] documented as of this encounter Goals Goal [...] documented as of this encounter Care Teams Microelectronics Engineer Relationship Specialty Start Date End Date Shannon Ordaz MD [address] [place] [address] PCP - General Family Medicine 06/11/19 Benjie Pineda FNP [address] [place] [address] Nurse Practitioner Family Medicine 05/23/23 [facility] 08/28/24 marco 11/23/24 documented as of this encounter
--- OUTSIDE RECORDS SUMMARY | 2025-06-26 10:22 | XMS_ITS | Encounter Summary ---
Author Organization [employer] Address [address] [facility] 7t [place] [address] Care Team Providers Care Wood Cabinet Finisher Name Role Phone Shannon Ordaz MD Primary Care Provider + Benjie Pineda Unavailable Unavailable Encounter Details Date Type Department Care Team (Late st Contact Info) Description 07/21/2023 Abstract [facility] [address] [place], [place] [phone] Shannon Ordaz MD [address] [place], [place] [phone] Social History Tobacco Use Types Packs/Day Years [...] Description 07/12/2025 2:00 PM EST Office Visit [facility] [address] [place], [place] [phone] Rivas, Raina, OD [address] [place] [address] documented as of this encounter Procedures Procedure Name Priority Date/Time Associated Diagnosis Comments COLONOSCOPY Routine 07/19/2023 documented in this encounter Results * (ABNORMAL) Colonoscopy (07/19/2023) Colonoscopy Abnormal(A ) Normal [facility] Comment:TA us Shannon Ordaz MD HEALTH MAINTENANCE Edite d Result - Final [facility] [address] [place] [phone] documented in this encounter Visit Diagnoses Not on filedocumented in this encounter Additional Health Concerns Assessment Noted Time PHQ-9 Depression Total Score: 3 05/31/20 23 10:47 AM EST documented as of this encounter Care Teams Wood Cabinet Finisher Relationship Specialty Start Date End Date Shannon Ordaz MD [address] [place] [address] PCP - General Family Medicine 12/16/19 Benjie Pineda FNP [address] [place] [address] Nurse Practitioner Family Medicine 05/23/23 [facility] 04/25/24 05/03/24 [facility] 08/28/24 marco 11/23/24 documented as of this encounter
--- OUTSIDE RECORDS SUMMARY | 2025-06-26 10:22 | XMS_ITS | Encounter Summary ---
Author Organization [employer] Address [address] [facility] 7t [place] [address] Care Team Providers Care Theatre Arts Professor Name Role Phone Shannon Ordaz MD Primary Care Provider + Benjie Pineda Unavailable Unavailable Encounter Details Date Type Department Care Team (Late st Contact Info) Description 11/23/2023 Orders Only [facility] MED[facility] [address] [place] [address] Provider, MD Yarelis Social History Tobacco Use [...] Description 07/12/2025 2:00 PM EST Office Visit [facility] [address] [place] [address] Rivas, Megan, OD [address] [place] [address] documented as of this encounter Procedures Procedure [...] documented as of this encounter Care Teams Theatre Arts Professor Relationship Specialty Start Date End Date Shannon Ordaz MD [address] [place] [address] PCP - General Family Medicine 06/11/19 Benjie Pineda FNP [address] [place] [address] Nurse Practitioner Family Medicine 05/23/23 [facility] 04/25/24 05/03/24 [facility] 08/28/24 marco 11/23/24 documented as of this encounter
--- OUTSIDE RECORDS SUMMARY | 2025-06-26 10:22 | XMS_ITS | Encounter Summary ---
Author Organization [employer] Address [address] [facility] 7t [place] [address] Care Team Providers Care Manager Economic Name Role Phone Shannon Ordaz MD Primary Care Provider + Benjie Pineda Unavailable Unavailable Reason for Visit * Reason Onset Date Comments Med Refill 02/21/2025 Encounter Details Date Type Department Care Team (Late st Contact Info) Description 02/21/2025 Refill [facility] [address] [place], [place] [phone] Shannon Ordaz MD [address] [place], [place] [phone] Major depressive disorder, recurrent episode with mood-congruent [...] EST Office Visit [facility] [address] [place] [address] Rivas, Raina, OD [address] [place] [address] documented as of this encounter Goals Goal [...] as of this encounter Care Teams Manager Economic Relationship Specialty Start Date End Date Shannon Ordaz MD [address] [place] [address] PCP - General Family Medicine 06/11/19 Benjie Pineda FNP [address] [place] [address] Nurse Practitioner Family Medicine 05/23/23 [facility] 08/28/24 elara 11/23/24 documented as of this encounter
--- OUTSIDE RECORDS SUMMARY | 2025-06-26 10:22 | XMS_ITS | Encounter Summary ---
Author Organization [employer] Address [address] [facility] 7t [place] [address] Care Team Providers Care Small Business Representative Name Role Phone Shannon Ordaz MD Primary Care Provider + Benjie Pineda Unavailable Unavailable Reason for Visit * Reason Comments Med Refill Encounter Details Date Type Department Care Team ([facility] st Contact Info) Description 08/30/2023 Refill [facility] CHC MED & PEDS [address] [place], [place] [phone] Shannon Ordaz MD [address] [place] [address] Social History Tobacco Use Types Packs/Day Years [...] Description 07/12/2025 2:00 PM EST Office Visit [facility] [address] [place] [address] Raina Hathaway, OD [address] [place] [address] documented as of this encounter Visit Diagnoses Not on filedocumented in this encounter Additional Health Concerns Assessment Noted Time PHQ-9 Depression Total Score: 2 08/02/19 24 9:41 AM EST documented as of this encounter Care Teams Small Business Representative Relationship Specialty Start Date End Date Shannon Ordaz MD [address] [place] [address] PCP - General Family Medicine 06/11/19 Benjie Pineda FNP [address] [place] [address] Nurse Practitioner Family Medicine 05/23/23 [facility] 04/25/24 05/03/24 [facility] 08/28/24 marco 11/23/24 documented as of this encounter
--- OUTSIDE RECORDS SUMMARY | 2025-06-26 10:22 | XMS_ITS | Encounter Summary ---
Author Organization [employer] Address [address] [place] [address] 7t [place] [address] Care Team Providers Care Development Professional Name Role Phone Shannon Ordaz MD Primary Care Provider + Benjie Pineda Unavailable Unavailable Reason for Visit * Reason Onset Date Comments Referral 08/26/2022 Encounter Details Date Type Department Care Team (Late st Contact Info) Description 08/26/2022 Telephone [facility] [address] [place], [place] [phone] Shannon Ordaz MD [address] [place], [place] [phone] Referral Social History Tobacco Use Types Packs/Day [...] 3:08 PM EST TC returned to pt [phone] to inform pt provider has placed PT referral today. Pt verbalized understanding. RN will send message to warehouse distribution specialist to ensure referral gets processed as pt's appt is on 09/03/22. * Telephone Encounter - Alta Daniel - 08/30/2022 12:03 PM EST Tc from pt checking status on physical therapy referral . * Telephone Encounter - Gumaro Storm - 08/26/2022 4:28 PM EST Tc from pt returning call regarding missing information she didn't have for the referral needed forphysical therapy. Location: [place] [address] Phone #: [phone] Please contact pt at [phone] documented in this encounter Plan of Treatment Upcoming Encounters Date Type Department Care Team (Late st Contact Info) Description 07/12/2025 2:00 PM EST Office Visit [facility] OPT[facility] [address] [place] [address] Raina Hathaway, OD [address] [place] [address] documented as of this encounter Visit Diagnoses Not on filedocumented in this encounter Additional Health Concerns Assessment Noted Time PHQ-9 Depression Total Score: 9 08/19/19 23 11:05 AM EST documented as of this encounter Care Teams Development Professional Relationship Specialty Start Date End Date Shannon Ordaz MD [address] [place] [address] PCP - General Family Medicine 06/11/19 Benjie Pineda FNP [address] [place] [address] Nurse Practitioner Family Medicine 05/23/23 [facility] 04/25/24 05/03/24 [facility] 08/28/24 marco 11/23/24 documented as of this encounter
--- OUTSIDE RECORDS SUMMARY | 2025-06-26 10:22 | XMS_ITS | Encounter Summary ---
Author Organization [employer] Address [address] [facility] 7t [place] [address] Care Team Providers Care School Psychologist Assistant Name Role Phone Shannon Ordaz MD Primary Care Provider + Benjie Pineda Unavailable Unavailable Encounter Details Date Type Department Care Team (Late Contact Info) Description 03/01/2023 Abstract [facility] [address] [place], [place] [phone] Shannon Ordaz MD [address] [place] [address] Social History Tobacco Use Types Packs/Day Years [...] Description 07/12/2025 2:00 PM EST Office Visit [facility] [address] [place], [place] [phone] Raina Hathaway OD [address] [place] [address] documented as of this encounter Visit Diagnoses Not on filedocumented in this encounter Additional Health Concerns Assessment Noted Time PHQ-9 Depression Total Score: 8 02/02/20 11:15 AM EDT documented as of this encounter Care Teams School Psychologist Assistant Relationship Specialty Start Date End Date Shannon Ordaz MD [address] [place] [address] PCP - General Family Medicine 06/11/19 Benjie Pineda FNP [address] [place] [address] Nurse Practitioner Family Medicine 05/23/23 [facility] 04/25/24 05/03/24 [facility] 08/28/24 marco 11/23/24 documented as of this encounter
--- OUTSIDE RECORDS SUMMARY | 2025-06-26 10:22 | XMS_ITS | Encounter Summary ---
Author Organization [employer] Address 75 [facility] 7t [place] [address] Care Team Providers Care Electrical Prospecting Observer Name Role Phone Shannon Ordaz MD Primary Care Provider + Benjie Pineda Unavailable Unavailable Reason for Visit * Reason Onset Date Comments Hospital Follow-up 03/22/2024 Encounter Details Date Type Department Care Team ([facility] st Contact Info) Description 03/22/2024 Telephone [facility]INE [address] [place], [place] [phone] Shannon Ordaz MD [address] [place], [place] [phone] Hospital Follow-up Social History Tobacco Use Types [...] from pt requesting a HDF appt. Hospital: [facility] Date of admission: 03/17/24 Discharge date: 03/21/24 Diagnosed: diarrhea and rectal bleeding documented in this encounter Plan of Treatment Upcoming Encounters Date Type Department Care Team (Late st Contact Info) Description 07/12/2025 2:00 PM EST Office Visit [facility] [address] [place] [address] Raina Hathaway, OD [address] [place] [address] documented as of this encounter Goals Goal [...] documented as of this encounter Care Teams Electrical Prospecting Observer Relationship Specialty Start Date End Date Shannon Ordaz MD [address] [place] [address] PCP - General Family Medicine 06/11/19 Benjie Pineda FNP [address] [place] [address] Nurse Practitioner Family Medicine 05/23/23 [facility] 04/25/24 05/03/24 [facility] 08/28/24 marco 11/23/24 documented as of this encounter
--- OUTSIDE RECORDS SUMMARY | 2025-06-26 10:22 | XMS_ITS | Encounter Summary ---
Author Organization [employer] Address [address] [facility] 7t [place] [address] Care Team Providers Care Inverform Machine Operator Name Role Phone Shannon Ordaz MD Primary Care Provider + Benjie Pineda Unavailable Unavailable Encounter Details Date Type Department Care Team (Late st Contact Info) Description 09/07/2024 Telephone [facility] MED[facility]INE [address] [place], [place] [phone] Shannon Ordaz MD 230 [place], [place] [phone] Social History Tobacco Use Types Packs/Day Years [...] Description 07/12/2025 2:00 PM EST Office Visit [facility] OPTOM[facility]RY [address] [place] [address] Raina Hathaway, OD [address] [place] [address] documented as of this encounter Goals Goal [...] documented as of this encounter Care Teams Inverform Machine Operator Relationship Specialty Start Date End Date Shannon Ordaz MD [address] [place] [address] PCP - General Family Medicine 06/11/19 Benjie Pineda FNP [address] [place] [address] Nurse Practitioner Family Medicine 05/23/23 [facility] 08/28/24 marco 11/23/24 documented as of this encounter
--- OUTSIDE RECORDS SUMMARY | 2025-06-26 10:22 | XMS_ITS | Encounter Summary ---
Author Organization [employer] Address [address] [facility] 7t [place] [address] Care Team Providers Care Escrow Closer Name Role Phone Shannon Ordaz MD Primary Care Provider + Benjie Pineda Unavailable Unavailable Encounter Details Date Type Department Care Team (Late Contact Info) Description 08/30/2022 Orders Only [facility] 230 [place], [place] [phone] Radha Hubbard MD [address] [place], [place] [phone] Neuropathy involving both lower extremities (Primary Dx) [...] Description 07/12/2025 2:00 PM EST Office Visit [facility] [address] [place], [place] [phone] Raina Hathaway OD [address] [place] [address] documented as of this encounter Visit Diagnoses Diagnosis Neuropathy involving both lower extremities- Primary documented in this encounter Additional Health Concerns Assessment Noted Time PHQ-9 Depression Total Score: 9 08/19/19 23 11:05 AM EST documented as of this encounter Care Teams Escrow Closer Relationship Specialty Start Date End Date Shannon Ordaz MD [address] [place] [address] PCP - General Family Medicine 06/11/19 Benjie Pineda FNP [address] [place] [address] Nurse Practitioner Family Medicine 05/23/23 [facility] 04/25/24 05/03/24 [facility] 08/28/24 marco 11/23/24 documented as of this encounter
--- OUTSIDE RECORDS SUMMARY | 2025-06-26 10:22 | XMS_ITS | Encounter Summary ---
Author Organization [employer] Address [address] [facility] 7t [place] [address] Care Team Providers Care Dry Press Operator Name Role Phone Shannon Ordaz MD Primary Care Provider + Benjie Pineda Unavailable Unavailable Reason for Visit * Reason Onset Date Comments Med Refill 04/16/2025 Encounter Details Date Type Department Care Team (Late st Contact Info) Description 04/16/2025 Refill [facility] [address] [place], [place] [phone] Shannon Ordaz MD [address] [place], [place] [phone] Major depressive disorder, recurrent episode with mood-congruent [...] EST Office Visit [facility] [address] [place] [address] Rivas, Raina, OD [address] [place] [address] documented as of this encounter Goals Goal [...] documented as of this encounter Care Teams Dry Press Operator Relationship Specialty Start Date End Date Shannon Ordaz MD [address] [place] [address] PCP - General Family Medicine 06/11/19 Benjie Pineda FNP [address] [place] [address] Nurse Practitioner Family Medicine 05/23/23 [facility] 08/28/24 [email or web address] 11/23/24 documented as of this encounter
--- OUTSIDE RECORDS SUMMARY | 2025-06-26 10:22 | XMS_ITS | Encounter Summary ---
Author Organization [employer] Address [address] [facility] 7t [place] [address] Care Team Providers Care Can Top Setter Name Role Phone Shannon Ordaz MD Primary Care Provider + Benjie Pineda Unavailable Unavailable Reason for Visit * Reason Comments Med Refill Encounter Details Date Type Department Care Team ([facility] st Contact Info) Description 01/07/2025 Refill [facility] MED[facility]INE [address] [place], [place] [phone] Shannon Ordaz MD [address] [place], [place] [phone] Mixed hyperlipidemia; Anxiety and depression Social History [...] Description 07/12/2025 2:00 PM EST Office Visit [facility] OPTOM[facility] [address] [place], [place] [phone] Raina Hathaway, OD [address] [place] [address] documented as of this encounter Goals Goal [...] documented as of this encounter Care Teams Can Top Setter Relationship Specialty Start Date End Date Shannon Ordaz MD [address] [place] [address] PCP - General Family Medicine 06/11/19 Benjie Pineda FNP [address] [place] [address] Nurse Practitioner Family Medicine 05/23/23 [facility] 08/28/24 marco 11/23/24 documented as of this encounter
--- OUTSIDE RECORDS SUMMARY | 2025-06-26 10:22 | XMS_ITS | Encounter Summary ---
Author Organization [employer] Address [address] [facility] [address]t [place] [address] Care Team Providers Care Program Management Manager Name Role Phone Shannon Ordaz MD Primary Care Provider + Benjie Pineda Unavailable Unavailable Reason for Visit * Reason Comments Med Refill Encounter Details Date Type Department Care Team ([facility] st Contact Info) Description 02/13/[address] [facility] CHC MED & PEDS [address] [place], [place] [phone] Shanonn Ordaz MD [address] [place] [address] Major depressive disorder, recurrent episode with mood-congruent [...] [facility] [address] [place] [address] Rivas, Raina, OD [address] [place] [address] documented as of this encounter Goals Goal [...] documented as of this encounter Care Teams Program Management Manager Relationship Specialty Start Date End Date Shannon Ordaz MD [address] [place] [address] PCP - General Family Medicine 06/11/19 Benjie Pineda FNP [address] [place] [address] Nurse Practitioner Family Medicine 05/23/23 [facility] 08/28/24 marco 11/23/24 documented as of this encounter
--- OUTSIDE RECORDS SUMMARY | 2025-06-26 10:22 | XMS_ITS | Encounter Summary ---
Author Organization [employer] Address [address] [place] [address] 7t [place] [address] Care Team Providers Care Drawer In Jacquard Loom Name Role Phone Shannon Ordaz MD Primary Care Provider + Benjie Pineda Unavailable Unavailable Reason for Visit * Reason Onset Date Comments Appointment Request 08/26/2022 Encounter Details Date Type Department Care Team (Late st Contact Info) Description 08/26/2022 Telephone [facility]ICINE [address] [place], [place] [phone] Shannon Ordaz MD [address] [place], [place] [phone] Appointment Request Social History Tobacco Use Types [...] labs/htn RCL ) Please contact pt at [phone] documented in this encounter Plan of Treatment Upcoming Encounters Date Type Department Care Team (Late st Contact Info) Description 07/12/2025 2:00 PM EST Office Visit [facility] OPTOMETRY [address] [place] [address] Rivas, Raina, OD [address] [place] [address] documented as of this encounter Visit Diagnoses Not on filedocumented in this encounter Additional Health Concerns Assessment Noted Time PHQ-9 Depression Total Score: 9 08/19/19 23 11:05 AM EST documented as of this encounter Care Teams Drawer In Jacquard Loom Relationship Specialty Start Date End Date Shannon Ordaz MD [address] [place] [address] PCP - General Family Medicine 06/11/19 Benjie Pineda FNP [address] [place] [address] Nurse Practitioner Family Medicine 05/23/23 [facility] 04/25/24 05/03/24 [facility] 08/28/24 marco 11/23/24 documented as of this encounter
--- OUTSIDE RECORDS SUMMARY | 2025-06-26 10:23 | XMS_ITS | Clinical Summary ---
Author Organization [employer] Address [address] [facility] 7t [place] [address] Care Team Providers Care Iron Melter Name Role Phone Brooks Ordaz MD Primary Care Provider + Benjie [...] prevent accidents at home. She has a RADIOTELEPHONE OPERATOR to help with ADLs, I told patient to avoid any activity that can put her at risk , that otherwise is to be assisted by RADIOTELEPHONE OPERATOR . Anemia 02/13/2024 Assessment & Plan (01/17/2025 [...] WRITTEN ON 10/17/2023 2:33 PM BY BROOKS ORDAZ MD Has POS MRI on 12/2022, last seen at Pain clinic >3mo ago due to TIA. Its been >6 mo since episode and she has been stable. 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 Patient agreed with POC, they will hand picker mirtazapine today and will get back [...] preserved EF (last echo on 04/19/23 at [facility] showed EF 60% with no [...] 11:30 am, information was given to follow [facility] cardiology Check BMP, will call [...] Closed fracture of fifth lum bar vertebra ([facility]) 11/15/2022 11/23/2024 Assessment & Plan (09/04/2024 1:35 [...] Severe obesity (BMI 35.0-39. 9) with comorbidity (CMS/[facility]) 11/11/2022 05/23/2024 Acute idiopathic pericarditis 05/24/2022 08/13/2023 [...] Data 04/17/2025 10:30 AM EDT Clinical Support [facility] [address] [place] [address] Kierra Carbajal RN Long-term current use of benzodiazepine (Primary Dx) 04/17/2025 Travel 04/16/2025 Refill [facility] [address] [place] [address] Brooks Ordaz MD Major depressive disorder, recurrent episode with mood-congruent psychotic features (CMS/HCC) ([facility]) 04/16/2025 Refill [facility] [address] [place] [address] Brooks Ordaz MD Major depressive disorder, recurrent episode with mood-congruent psychotic features (CMS/HCC) ([facility]) 04/13/2025 Refill [facility] [address] [place] [address] Brooks Ordaz MD 04/04/2025 Refill [facility] [address] [place] [address] Brooks Ordaz MD Mixed hyperlipidemia 04/04/2025 Refill [facility] [address] [place], [place] [phone] Brooks Ordaz MD Mixed hyperlipidemia 03/29/2025 Refill [facility] [address] [place] [address] Gabrielle Howard MD Major depressive disorder, recurrent episode with mood-congruent psychotic features (CMS/HCC) (HCC) 03/28/2025 Orders Only [facility] [address] [place] [address] Brooks Ordaz MD 03/26/2025 Telephone [facility] [address] [place] [address] Brooks Ordaz MD verbal orders from Last 3 Months Immunizations Immunization Administration [...] Description 07/12/2025 2:00 PM EST Office Visit [facility] [address] [place] [address] Rivas, Raina, OD [address] [place] [address] Health Maintenance Due Date Last Done Comments [...] Pressure 166/80(2024 12:02 PM EDT) No Piers-Gambl eYanet, PharmD Record your blood pressure once per day Blood Pressure No Evangelistas-Gambl eMeetasa PharmD Take your medication every day Lifestyle No Evangelistas-Gambl eYanet PharmD Procedures Procedure Name Priority Date/Time Associated [...] PANEL Routine 03/28/2025 3:0 5 PM EDT HPV DNA, LOW/HIGH RISK Routine 03/22/2025 12:12 PM EDT PAP SMEAR Routine 03/22/2025 12:12 PM EDT Encounter for cervical Pap smear with pelvic exam BI MAMMOGRAM SCREENING TOMOSYNTHESIS BILATERAL Routine 12/06/2024 [...] Creatinine, Serum 1.03 0.5 - 1.4 mg/dL [facility] Estimated Glomerular Filt Rate 54 [facility] Comment:Chronic Kidney Disea se: Estimated GFR < 60 mL/min/1.65p1Nsxrir Kidney Disease: Estimated GFR < 15 mL/min/1.73m2 06/05/2025 10:4 5 AM EST 06/05/2025 10:45 AM EST us Generic External Data Provider LAB BLOOD ORDERAB LES Final Result Performing Organization Address City/[facility] Co de Phone Number [facility] [address] [place] [address] [phone] * BUN (Blood Urea Nitrogen) (06/05/2025 10:45 AM EST) Only the most recent of2 resultswithin the time period is included. Urea Nitrogen (BUN) 15 9 - 16 mg/dL [facility] 06/05/2025 10:4 5 AM EST 06/05/2025 10:45 AM EST us Generic External Data Provider LAB BLOOD ORDERAB LES Final Result [facility] [address] [place] [phone] * (ABNORMAL) Electrolyte Panel (06/05/2025 10:45 AM EST) Only the most recent of2 resultswithin the time period is included. Sodium 141 135 - 145 mmol/L [facility] Potassium 4.7 3.3 - 5.1 mmol/L [facility] Chloride 108 96 - 108 mmol/L [facility] Carbon Dioxide 30(H) 22 - 29 mmol/L [facility] Anion Gap 8(L) 12 - 20 [facility] 06/05/2025 10:4 5 AM EST 06/05/2025 10:45 AM EST Generic External Data Provider LAB BLOOD ORDERAB LES Final Result Performing Organization Address [facility] Phone Number [facility] [address] [place] [phone] * Protein Creatinine Ratio, Urine (06/05/2025 10:38 AM EST) Only the most recent of2 resultswithin the time period is included. Creatinine, Urine 64.64 mg/dL [facility] Protein, Total, Random Urine <7 <12 mg/dL [facility] Protein/Creatin ine Ratio, Ur TNP <0.2 [facility] Comment:Unable to calculate urine protein creatinine ratio due tolow creatinine or protein result. 06/05/2025 10:3 8 AM EST 06/05/2025 11:04 AM EST us Generic External Data Provider LAB URINE ORDERAB LES Final Result Performing Organization Address [facility] Co de Phone Number [facility] [address] [place] [phone] * (ABNORMAL) POCT YANIRA-14 Urine Drug Screen (04/17/2025 10:50 AM EDT) THC Negative Negative Cocaine Screen, Urine Negative Negative Opiate Screen, Urine Negative Negative Methamphetamine Screen Urine Negative Negative Amphetamine Screen, Urine Negative Negative Benzodiazepines Screen, Urine Positive(A) Negative 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 04/02/26 Internal Pass Control us Brooks Ordaz MD POINT OF CARE TEST ENTER /EDIT ORDERABLES Final Result * Hold Lavender - Possible Hematology (03/28/2025 3:05 PM EDT) Pathologist [facility] Hold Lavender - Possible Hematololgy SEE NOTE [facility] Comment:Specimen will be hel d untested for 8 hours. Call Hematologyif testing is desired. 03/28/2025 3:05 PM EDT 03/28/2025 4:22 PM EDT Brooks Ordaz MD HISTORICAL/NON ORDERABLE LABS Final Result [facility] [address] [place] [phone] * HPV DNA, Low/High Risk (03/22/2025 12:12 PM EDT) Pathologist [facility] HPV High Risk Negative Negative [facility] HPV Genotype 16 Negative Negative [facility] HPV Genotype 18 Negative Negative [facility] Comment:HPV testing performe d at [facility] (CLIA#[id number]), [address] [place] [address] [phone].Testing for HPV was performed using the Santos [...] EDT 03/25/2025 6:46 AM EDT us Brooks Ordaz MD LAB BLOOD ORDERABLES Fin al Result [facility] [address] [place] [phone] * Pap Smear (03/22/2025 12:12 PM EDT) Swab Cervical swab / Unknown 03/22/2025 12:12 PM EDT 03/25/2025 6:37 AM EDT Narrative [facility] - 03/28/2025 10:49 AM EDT ----- ------- Name: Gabrielle Street Age/Sex: 64/F : 1960 Unit#: [id number] Attend Dr: Re03/22/25 Status: PRE REF Location: [facility] Disch: ----- ------- SPEC : [id number] RECD: 03/25/25 STATUS: CATRINA WANG NUM: [id number] SINGH: 03/22/25-[address] [facility] [address]: Brooks Ordaz MD ENTERED: 03/25/25 SP TYPE: Pap Smr [facility] DR: ORDERED: Pap Smear Interpretation Satisfactory for evaluation. Negative for intraepithelial lesion or malignancy. HPV High Risk: Negative HPV Genotyping 16: Negative HPV Genotyping 18: Negative Clinical Information LMP:Unk Previous PAP test:7+ years Other surgery: Other history: Material Received ThinPrep-Cervical ----- ------- Signed (signature on file) LAY Hargrove (ASCP) 03/28/25 1049 ----- ------- END OF REPORT Brooks Ordaz MD LAB CYTOLOGY ORDERABLES Final Result [facility] [address] [place] [address] [phone] * BI Mammogram Screening Tomosynthesis Bilateral (12/06/2024) Anatomical Region Laterality Modality Breast Bilateral Mammography Brooks Ordaz MD IMG BI PROCEDURES Final Result * (ABNORMAL) Hm Colonoscopy (07/19/2023) Colonoscopy Abnormal(A ) Normal [facility] Comment:TA Brooks Ordaz MD HEALTH MAINTENANCE Edite d Result - Final Performing Organization Address [facility] Co de Phone Number [facility] [address] [place] [phone] * Lipid Panel with Reflex to Direct LDL (06/02/2023 11:15 AM EST) Triglycerides 80 <150 mg/dL [facility] Comment:Desirable Triglyceri de: less than 150 mg/dLBorderline High Triglyceride 150-199 mg/dLHigh Triglyceride: 200-499 mg/dLVery High Triglyceride: greater than or equal to 5OO mg/dL Cholesterol 149 <200 mg/dL [facility] Comment:Desirable Cholestero l: less than 200 mg/dLBorderline High Cholesterol: 200-239 mg/dLHigh Cholesterol: greater than 239 mg/dL LDL Cholesterol Calculated 76 <100 mg/dL [facility] Comment:Desirable LDL: less than 100 mg/dLNear Optimal/Above Optimal LDL: 110- 129 mg/dLBorderline High LDL: 130-159 mg/dLHigh LDL: 160-189 mg/dLVery High LDL: greater than or equal to 190 mg/dL HDL Cholesterol 57 >40 mg/dL [facility] Comment:Desirable HDL: great er than 40 mg/dL Note: This HDL assay may give artificially low results in patients with liver disease. Blood 06/02/2023 11:1 5 AM EST 06/02/2023 1:19 PM EST Brooks Ordaz MD LAB BLOOD ORDERABLES Fin al Result Performing Organization Address City/[facility]/ZIP Co de Phone Number [facility] [address] [place] [phone] from Last 3 Months or Most Recently Relevant to Health Maintenance Insurance [facility] STAND[facility] MEDICARE Care Teams Iron Melter Relationship Specialty Start Date End Date Brooks Ordaz MD [address] [place] [phone] PCP - General Family Medicine 06/11/19 Benjie Pineda FNP [address] [place] [address] Nurse Practitioner Family Medicine 05/23/23 [facility] 08/28/24 marco 11/23/24
--- OUTSIDE RECORDS SUMMARY | 2025-06-26 10:23 | XMS_ITS | Encounter Summary ---
Author Organization [employer] Address [address] [facility] 7t [place] [address] Care Team Providers Care Sushi Chef Name Role Phone Shannon Ordaz MD Primary Care Provider + Benjie Pineda Unavailable Unavailable Encounter Details Date Type Department Care Team (Late st Contact Info) Description 11/22/2024 Orders Only [facility] [address] [place] [address] ProviderYarelis MD Social History Tobacco Use Types [...] Office Visit [facility] [address] [place] [address] Rivas, Megan, OD [address] [place] [address] documented as of this encounter Goals Goal [...] documented as of this encounter Care Teams Sushi Chef Relationship Specialty Start Date End Date Shannon Ordaz MD [address] [place] [address] PCP - General Family Medicine 06/11/19 Benjie Pineda FNP [address] [place] [address] Nurse Practitioner Family Medicine 05/23/23 [facility] 08/28/24 elara 11/23/24 documented as of this encounter
--- OUTSIDE RECORDS SUMMARY | 2025-06-26 10:23 | XMS_ITS | Encounter Summary ---
Author Organization [employer] Address [address] [facility] 7t [place] [address] Care Team Providers Care Transportation Planner Name Role Phone Shannon Ordaz MD Primary Care Provider + Benjie Pineda Unavailable Unavailable Reason for Visit * Reason Comments Med Refill Encounter Details Date Type Department Care Team (Late st Contact Info) Description 07/26/2022 Refill [facility] [address] [place] [address] Benjie Pineda FNP Major depressive disorder, recurrent [...] Description 07/12/2025 2:00 PM EST Office Visit [facility] [address] [place] [address] Rivas, Raina, OD [address] [place] [address] documented as of this encounter Visit Diagnoses Diagnosis Major depressive disorder, recurrent episode with mood-congruent psychotic features (CMS/HCC) (HCC) documented in this encounter Additional Health Concerns Assessment Noted Time PHQ-9 Depression Total Score: 11 023 9:08 AM EST documented as of this encounter Care Teams Transportation Planner Relationship Specialty Start Date End Date Shannon Ordaz MD [address] [place] [address] PCP - General Family Medicine 06/11/19 Benjie Pineda FNP [address] [place] [address] Nurse Practitioner Family Medicine 05/23/23 [facility] 04/25/24 05/03/24 [facility] 08/28/24 marco 11/23/24 documented as of this encounter
--- OUTSIDE RECORDS SUMMARY | 2025-06-26 10:23 | XMS_ITS | Encounter Summary ---
Author Organization [employer] Address [address] [facility] 7t [place] [address] Care Team Providers Care Almond Paste Mixer Name Role Phone Shannon Ordaz MD Primary Care Provider + Benjie Pineda Unavailable Unavailable Reason for Visit * Reason Comments Med Refill Encounter Details Date Type Department Care Team ([facility] st Contact Info) Description 12/10/2024 Refill [facility] [address] [place], [place] [phone] Shannon Ordaz MD [address] [place], [place] [phone] Major depressive disorder, recurrent episode with mood-congruent [...] 07/12/2025 2:00 PM EST Office Visit [facility] [address] [place], [place] [phone] Raina Hathaway, OD [address] [place] [address] documented as of this encounter Goals Goal [...] documented as of this encounter Care Teams Almond Paste Mixer Relationship Specialty Start Date End Date Shannon Ordaz MD [address] [place] [address] PCP - General Family Medicine 06/11/19 Benjie Pineda FNP [address] [place] [address] Nurse Practitioner Family Medicine 05/23/23 [facility] 08/28/24 marco 11/23/24 documented as of this encounter
--- OUTSIDE RECORDS SUMMARY | 2025-06-26 10:23 | XMS_ITS | Encounter Summary ---
Author Organization [employer] Address [address] [facility] 7t [place] [address] Care Team Providers Care Pump Service Supervisor Name Role Phone Shannon Ordaz MD Primary Care Provider + Benjie Pineda Unavailable Unavailable Reason for Visit * Reason Comments Med Refill Encounter Details Date Type Department Care Team ([facility] st Contact Info) Description 12/07/2024 Refill [facility] [address] [place], [place] [phone] Shannon Ordaz MD [address] [place], [place] [phone] Anxiety and depression Social History Tobacco Use [...] Description 07/12/2025 2:00 PM EST Office Visit [facility] [address] [place] [address] Raina Hathaway, OD [address] [place] [address] documented as of this encounter Goals Goal [...] documented as of this encounter Care Teams Pump Service Supervisor Relationship Specialty Start Date End Date Shannon Ordaz MD [address] [place] [address] PCP - General Family Medicine 06/11/19 Benjie Pineda FNP [address] [place] [address] Nurse Practitioner Family Medicine 05/23/23 [facility] 08/28/24 marco 11/23/24 documented as of this encounter
--- OUTSIDE RECORDS SUMMARY | 2025-06-26 10:23 | XMS_ITS | Encounter Summary ---
Author Organization [employer] Address [address] [facility] 7t [place] [address] Care Team Providers Care Systems Librarian Name Role Phone Shannon Ordaz MD Primary Care Provider + Benjie Pineda Unavailable Unavailable Reason for Visit * Reason Comments Med Refill Encounter Details Date Type Department Care Team ([facility] st Contact Info) Description 06/13/2024 Refill [facility] [address] [place], [place] [phone] Shannon Ordaz MD [address] [place], [place] [phone] Primary hypertension Social History Tobacco Use Types [...] Description 07/12/2025 2:00 PM EST Office Visit [facility] [address] [place], [place] [phone] Raina Hathaway, OD [address] [place] [address] documented as of this encounter Goals Goal [...] documented as of this encounter Care Teams Systems Librarian Relationship Specialty Start Date End Date Shannon Ordaz MD [address] [place] [address] PCP - General Family Medicine 06/11/19 Benjie Pineda FNP [address] [place] [address] Nurse Practitioner Family Medicine 05/23/23 [facility] 08/28/24 marco 11/23/24 documented as of this encounter
--- OUTSIDE RECORDS SUMMARY | 2025-06-26 10:23 | XMS_ITS | Encounter Summary ---
Author Organization [employer] Address 75 [facility] 7t [place] [address] Care Team Providers Care Hot Roll Inspector Name Role Phone Shannon Ordaz MD Primary Care Provider + Benjie Pineda Unavailable Unavailable Reason for Visit * Reason Comments Med Refill Encounter Details Date Type Department Care Team (Late st Contact Info) Description 06/29/2022 Refill [facility] [address] [place], [place] [phone] Benjie Pineda FNP Social History Tobacco Use [...] Description 07/12/2025 2:00 PM EST Office Visit [facility] [address] [place], [place] [phone] RivasRaina gómez, OD [address] [place] [address] documented as of this encounter Visit Diagnoses Not on filedocumented in this encounter Care Teams Hot Roll Inspector Relationship Specialty Start Date End Date Shannon Ordaz MD [address] [place] [address] PCP - General Family Medicine 06/11/19 Benjie Pineda FNP [address] [place] [address] Nurse Practitioner Family Medicine 05/23/23 [facility] 04/25/24 05/03/24 [facility] 08/28/24 marco 11/23/24 documented as of this encounter
--- OUTSIDE RECORDS SUMMARY | 2025-06-26 10:23 | XMS_ITS | Encounter Summary ---
Author Organization [employer] Address [address] [facility] 7t [place] [address] Care Team Providers Care Seating Upholsterer Name Role Phone Shannon Ordaz MD Primary Care Provider + Benjie Pineda Unavailable Unavailable Reason for Visit * Reason Comments Med Refill Encounter Details Date Type Department Care Team ([facility] st Contact Info) Description 10/16/2024 Refill [facility] [address] [place], [place] [phone] Shannon Ordaz MD [address] [place], [place] [phone] Major depressive disorder, recurrent episode with mood-congruent [...] 2:00 PM EST Office Visit [facility] OPT[facility]ET[facility] [address] [place], [place] [phone] Raina Hathaway, OD [address] [place] [address] documented as of this encounter Goals Goal [...] documented as of this encounter Care Teams Seating Upholsterer Relationship Specialty Start Date End Date Shannon Ordaz MD [address] [place] [address] PCP - General Family Medicine 06/11/19 Benjie Pineda FNP [address] [place] [address] Nurse Practitioner Family Medicine 05/23/23 [facility] 08/28/24 marco 11/23/24 documented as of this encounter
--- OUTSIDE RECORDS SUMMARY | 2025-06-26 10:23 | XMS_ITS | Clinical Summary ---
Author Organization [facility] Address [address] [place] [address] Phone Care Team Providers Care Per Diem Physical Therapist Assistant Name Role Phone Shannon Ordaz MD Primary Care Provider [phone] Allergies Active Allergy Reactions Criticality Noted Date [...] S/HCC V24, [facility]/HCC V28) Depression Hypercholesteremia Hypertension Peripheral neuropathy GERD (gastroesophageal reflux disease) Glaucoma CVA (cerebral vascular accident) (CMS/HCC V24, C [facility] V28) Family History Medical History [...] LAB CHEMISTRY METHOD 12/25/2024 9:10 AM EDT [facility] Potassium 3.9 3.5 - 5.5 mmol/L LAB CHEMISTRY METHOD 12/25/2024 9:10 AM EDT [facility] Chloride 109 96 - 110 mmol/L LAB CHEMISTRY METHOD 12/25/2024 9:10 AM EDT [facility] CO2 26 21 - 32 mmol/L LAB CHEMISTRY METHOD 12/25/2024 9:10 AM [facility] Anion Gap 7 3 - 11 LAB CHEMISTRY METHOD 12/25/2024 9:10 AM [facility] Glucose 102(H) 70 - 100 mg/dL LAB CHEMISTRY METHOD 12/25/2024 9:10 AM [facility] BUN 12 5 - 25 mg/dL LAB CHEMISTRY METHOD 12/25/2024 9:10 AM [facility] Creatinine 1.30(H) 0.50 - 1.10 mg/dL LAB CHEMISTRY METHOD 12/25/2024 9:10 AM [facility] eGFR 45(L) >=60 mL/min/1. 73m2 LAB CHEMISTRY METHOD 12/25/2024 9:10 AM [facility] Comment:Calculation based on the Chronic Kidney Disease Epidemiology Collaboration (CKD-EPI) equation refit without adjustment for race. BUN/Creatinine Ratio 9.2 LAB CHEMISTRY METHOD 12/25/2024 9:10 AM [facility] Calcium 8.5 8.5 - 10.5 mg/dL LAB CHEMISTRY METHOD 12/25/2024 9:10 AM [facility] Blood Venous blood specimen / Unknown Venipuncture / Unknown 12/25/2024 8:27 AM EDT 12/25/2024 8:42 AM EDT us Keon Nunes DO LAB BLOOD ORDERABLES Final Result [facility] [address] [place] [address], [place] [phone] * MG Mammo Digital Screening w Maximilian [...] year. Mamm[facility] location: [facility] [address], [address] -------- FINAL REPORT -------- Dictated By: Otf Hoyos Dictated Date: 12/06/2024 16:51 ET Assigned Physician: Otf Hoyos Reviewed and Electronically Signed By: Otf Hoyos Signed Date: 12/06/2024 16:58 ET Workstation ID: [id number] Transcribed By: Self Edit Transcribed Date: 12/06/2024 16:51 ET Narrative 12/06/2024 4:58 PM EDT EXAM: SCREENING MAMMOGRAPHY, BILATERAL HISTORY: SCREENING. Family history of breast cancer, mother, maternal grandmother COMPARISON: None available TECHNIQUE: Synthesized CC and MLO projections of each breast. Tomosynthesis of each breast in the CC and MLO projections. ADDITIONAL IMAGING: None Computer-aided detection was employed with the [employer] AI 3-D. TISSUE DENSITY: There are scattered [...] None Computer-aided detection was employed with the [employer] AI 3-D. TISSUE DENSITY: There are scattered [...] year. Mammography location: [facility] [address] [place], [address] -------- FINAL REPORT -------- Dictated By: Otf Hoyos Dictated Date: 12/06/2024 16:51 ET Assigned Physician: Otf Hoyos Reviewed and Electronically Signed By: Otf Hoyos Signed Date: 12/06/2024 16:58 ET Workstation ID: [id number] Transcribed By: Self Edit Transcribed Date: 12/06/2024 16:51 ET Shannon Ordaz MD IMG BI PROCEDURES Final Resu lt from Last 3 Months or Most Recently Relevant to Health Maintenance Insurance MEDICAID - [place] MEDICARE Advance Directives Documents on File Type Date Recorded Patient Haz Tech Expl [facility] Care Decision (hx) 04/26/2024 Anahi Pezrro AD [...] currently active code status orders. Care Teams Per Diem Physical Therapist Assistant Relationship Specialty Start Date End Date Shannon Ordaz MD [address] [place] [phone] PCP - General Internal Medicine 08/22/24
--- OUTSIDE RECORDS SUMMARY | 2025-06-26 10:23 | XMS_ITS | Encounter Summary ---
Author Organization [employer] Address [address] [facility] [address] [place] [address] Care Team Providers Care Target Trimmer Name Role Phone Shannon Ordaz MD Primary Care Provider + Benjie Pineda Unavailable Unavailable Reason for Visit * Reason Onset Date Comments Pre-op Exam 06/21/2024 Encounter Details Date Type Department Care Team ([facility] st Contact Info) Description 06/21/2024 Telephone [facility] MEDICINE [address], [place] [phone] Shannon Ordaz MD [address] [place], [place] [phone] Pre-op Exam Social History Tobacco Use Types [...] Melita Stevenson - 06/21/2024 9:57 AM EST Tool Engineer spoke with Melanie at [facility] and agreed to inform pt she is scheduled for pre op on 07/25/24 at 9AM with . Appointment reminder letter mailed Date of Surgery: 08/07/2024 and 08/23/2024 (right eye) Surgical procedure being done: Cataract Surgery Type of anesthesia: MAC Lab needed: No EKG: No Surgeon's name: Tino Falk Facility name: [facility] Surgeon's office number: [phone] Ext [phone] Surgeon's office fax number: [phone] Contact name (person you spoke with): Melanie Last office note from surgeon requested: No * Telephone Encounter - Watson Abdi - 06/21/2024 9:08 AM EST Date of Surgery: 08/07/2024 and 08/23/2024 (right eye) Surgical procedure being done: Cataract Surgery Type of anesthesia: MAC Lab needed: No EKG: No Surgeon's name: Tino Falk Facility name: [facility] Surgeon's office number: [phone] Surgeon's office fax number: [phone] Contact name (person you spoke with): Melanie Last office note from surgeon requested: No Send Message to Melita Stevenson and Marc Apodaca documented in this encounter Plan of Treatment Upcoming Encounters Date Type Department Care Team (Late st Contact Info) Description 07/12/2025 2:00 PM EST Office Visit [facility] OPTOMETRY [address] [place], [place] [phone] Raina Hathaway, OD [address] [place] [address] documented as of this encounter Goals Goal [...] documented as of this encounter Care Teams Target Trimmer Relationship Specialty Start Date End Date Shannon Ordaz MD [address] [place] [address] PCP - General Family Medicine 06/11/19 Benjie Pineda FNP [address] [place] [address] Nurse Practitioner Family Medicine 05/23/23 [facility] 08/28/24 elara 11/23/24 documented as of this encounter
== END 2025-06-26 10:16 | disposition home or self-care (01) ==
LOC: HO.HPS 09:45
PROVIDERS: PCP Internal Medicine; Visit Provider Internal Medicine Pulmonary Disease
DX: J44.9 Chronic obstructive pulmonary disease, unspecified (principal); R06.09 Other forms of dyspnea
CPT/HCPCS: 99214

== ENCOUNTER → 2025-06-26 09:45 | Outpatient (BNVA) | payer MEDICARE, MEDICAID, SELFPAY | PROVIDERS: PCP Internal Medicine; Visit Provider Internal Medicine Pulmonary Disease | DX: J44.9 Chronic obstructive pulmonary disease, unspecified (principal); Z87.891 Personal history of nicotine dependence; R06.09 Other forms of dyspnea | CPT/HCPCS: 99212 ==